=== PATIENT | female | born 1940 | race Caucasian/White ===

== ENCOUNTER → 2016-09-23 | Outpatient (CLI) | payer BC ==
[~2016-09-23] MED LIST: ACET-1256 PO; AMLO-114 PO; ATEN-173 PO; ATV/1 PO; CEPH500C PO; CYCL10TA6 PO; FLUT0.15 NAE; IBUP-1050 PO; INDO-24 PO; LMTHP PO; LORA10TA5 PO; LSN10 PO; MAGNTAB17 PO; MECL1TAB42 PO; POTA1CAP53 PO; RANI300T PO
--- NOTE | 2016-09-23 16:40 | MAMMOGRAPHY REPORT ---
UNILATERAL RIGHT DIGITAL SCREENING MAMMOGRAM TOMOSYNTHESIS WITH CAD: 09/23/2016 CLINICAL HISTORY: Asymptomatic. Personal history of breast cancer. TECHNIQUE: Right breast tomosynthesis in addition to standard 2D mammography was performed. Current study was also evaluated with a Computer Aided Detection (CAD) system. COMPARISON: Comparison is made to exams dated: 09/21/2015 mammogram, 07/18/2014 mammogram, 07/15/2013 mammogram, 07/12/2012 mammogram, 07/09/2011 mammogram, and 07/08/2010 mammogram - [facility] enter. BREAST COMPOSITION: The tissue of the right breast is almost entirely fatty. FINDINGS: A linear scar marker overlies the upper outer middle one third of the right breast. Ther e is a benign coarse calcification and stable intramammary lymph node in the upper outer quadrant of the right breast. Minimal vascular calcification. The hub of a Mediport catheter is partially vis ualized projecting over the superior right pectoralis muscle on the MLO view. No new suspicious mas s, architectural distortion or cluster of microcalcifications is seen. IMPRESSION: ACR BI-RADS CATEGORY 1: NEGATIVE There is no mammographic evidence of malignancy. A 1 year screening mammogram is recommended. The p atient will receive written notification of the results. Approximately 10% of breast cancers are not detected with mammography. A negative mammographic repor t should not delay biopsy if a clinically suggestive mass is present. Alba Patel M.D. ay/:09/23/2016 15:29:55 [employer]: Shaina RINCON(Rachelle)(Shama)(LUCI), [facility] letter sent: Normal 1/2 BI-RADS Code: ACR BI-RADS Category 1: Negative
== END | disposition home or self-care (01) ==
LOC: C.MAMM 10:01
PROVIDERS: ATTEND Physician Assistant
DX: Z12.31 Encounter for screening mammogram for malignant neoplasm of breast (principal); N64.89 Other specified disorders of breast

== ENCOUNTER 2016-12-12 11:34 | Emergency (ER) | payer BC ==
[~2016-12-12] VITALS: Ht 167.6 cm; Wt 99.1 kg
[~2016-12-12 11:34] MED LIST changes: -ATV/1 PO; -CEPH500C PO; -FLUT0.15 NAE; -IBUP-1050 PO; -LORA10TA5 PO; -LSN10 PO; -MAGNTAB17 PO; -RANI300T PO
[2016-12-12 11:36] VITALS: TEMP 37.1; Ht 167.6 cm; Wt 99.1 kg
[2016-12-12] MEDS ORDERED: LORA10TA5 PO (12:47)
[2016-12-12] MEDS ORDERED: RANI300T PO (12:47)
[2016-12-12] MEDS ORDERED: FLUT0.15 NAE (12:49)
[2016-12-12] MEDS ORDERED: MAGNTAB17 PO (12:49)
[2016-12-12] MEDS ORDERED: ATV/1 PO (12:49)
[2016-12-12 13:12] LABS: PROTHROMBIN TIME (PATIENT) 10.7 SECONDS (9.0-12.0)
[2016-12-12 13:16] LABS: BASO % 0.3 %; BASO ABS # 0.02 K/uL (0-0.2); COMPLETE YES; EOS % 8.6 %; HEMATOCRIT 37.4 % (37-47); IG% 0.6 %; LYMPH % 23.5 %; LYMPH ABS # 1.52 K/uL (1.2-3.4); MEAN CELL VOLUME 90.3 fL (80-100); MEAN CORPUSCULAR HEMOGLOBIN 30.9 pg (25-34); MEAN CORPUSCULAR HGB CONC 34.2 g/dl (32-36); MEAN PLATELET VOLUME 9.8 fL (7.4-10.4); MONO % 11.6 %; NEUT % 55.4 %; PLATELET COUNT 267 K/uL (130-400); RED BLOOD COUNT 4.14 M/uL (4.2-5.4); WHITE BLOOD COUNT 6.48 K/uL (4.8-10.8)
[2016-12-12 13:17] LABS: BUN/CREATININE RATIO 17.9 (10-20); CALCIUM 8.6 mg/dl (8.5-10.1); CREATININE 1.1 mg/dl (0.60-1.20); POTASSIUM 3.1 mmol/L (3.5-5.1)
--- NOTE | 2016-12-12 14:35 | DIAGNOSTIC IMAGING REPORT ---
BILATERAL LOWER EXTREMITY VENOUS DOPPLER HISTORY: Acute left lower extremity swelling COMPARISON STUDY: None. FINDINGS: There is normal compressibility, flow, and augmentation within the left lower extremity deep venous system. There is a mild degree of swelling within the imaged left calf. IMPRESSION: 1. No evidence of deep venous thrombosis within the left lower extremity. 2. Nonspecific mild degree of soft tissue swelling involves the left calf. Electronically signed by: Chidi Bagley M.D. 12/12/2016 2:34 PM Dictated Date/Time: 12/12/2016 2:32 PM
[2016-12-12] MEDS ORDERED: CEPH500C PO (15:12)
[2016-12-12] MEDS ORDERED: CEPHALEXIN MONOHYDRATE 250 MG CAP PO ONE (15:15)
[2016-12-12 15:23] VITALS: BP 174/84; PULSE 72; O2SAT 94
--- NOTE | 2016-12-12 19:19 | EMERGENCY ROOM VISIT NOTE ---
History Report prepared by Polo: Merlin Castle Under the Supervision of: Dr. Edward Fermin D.O. First contact with patient: 12:37 Chief Complaint: SWELLING TO EXTREMITY Stated Complaint: LEFT LEG PAIN History of Present Illness The patient is a 75 year old female who presents to the Emergency Room with complaints of left lower extremity swelling that occurred yesterday afternoon. This has never happened to the patient before. At this time, she noticed the swelling in her leg with some redness and tenderness to touch. She notes that her leg feels tight as well. She and her went on a 1 day trip last week and spent 10 hours in the car. She denies any swelling to other areas. Pt denies headache, change in vision, fevers, chest pain, shortness of breath, nausea, vomiting, diarrhea, pain with urination, and melena. She also denies any coughing up blood or past blood clots. Source of History: patient Onset: yesterday afternoon Position: leg (left) Symptom Intensity: mild Quality: other (Swelling) Timing: constant Associated Symptoms: No fevers, No cough, No chest pain, No SOB, No nausea, No vomiting, No melena, No diarrhea Note: She has some pain to the left leg. Review of Systems See HPI for pertinent positives & negatives. A total of 10 systems reviewed and were otherwise negative. Past Medical & Surgical Medical Problems: (1) Age related osteoporosis (2) Breast CA (3) CTS (carpal tunnel syndrome) (4) HTN (hypertension) (5) Hypomagnesemia (6) Kidney calculi (7) Neutropenic fever (8) NAYA on CPAP (9) Uterine cancer Surgical Problems: (1) H/O dilation and curettage (2) H/O eye surgery (3) H/O knee surgery (4) H/O mastectomy (5) H/O total hysterectomy (6) H/O tubal ligation (7) H/O: hysterectomy (8) Hx of tonsillectomy Family History Cancer Hypertension Social History Smoking Status: Never Smoker Alcohol Use: none Drug Use: none Marital Status: Housing Status: lives with significant other Occupation Status: retired Current/Historical Medications Scheduled Amlodipine (Norvasc), 10 MG PO QPM Atenolol (Tenormin), 25 MG PO QPM Cephalexin Monohydrate (Keflex), 500 MG PO QID Fluticasone Propionate (Nasal) (Flonase Allergy Relief), 2 SPRAYS DEVORA DAILY Loratadine (Claritin), 10 MG PO DAILY Magnesium Chloride-Calcium Car (Slow-Mag), 1 TAB PO DAILY Potassium Chloride (Klor-Con Sprinkle), 10 MEQ PO BID Ranitidine Hcl (Zantac), 300 MG PO DAILY Scheduled PRN Cyclobenzaprine Hcl (Flexeril), 10 MG PO HS PRN for Muscle Spasms Indomethacin (Indocin), 50 MG PO TID PRN for gout Lorazepam (Ativan), 1 MG PO TID PRN for Anxiety Meclizine Hcl (Meclizine Hcl), 25 MG PO TID PRN for Dizziness or Vertigo Allergies Coded Allergies: Ciprofloxacin (Verified Allergy, Unknown, HIVES, 12/12/16) Codeine (Verified Adverse Reaction, Unknown, GI SYMPTOMS, 12/12/16) Cyproheptadine (Verified Adverse Reaction, Unknown, lethargy, 12/12/16) Doxepin (Verified Adverse Reaction, Unknown, lethargy, 12/12/16) Hydrocodone (Verified Adverse Reaction, Unknown, GI SYMPTOMS, 12/12/16) Meloxicam (Verified Adverse Reaction, Unknown, dizzy,headache,nausea, 12/12) Oxycodone (Verified Adverse Reaction, Unknown, GI SYMPTOMS, 12/12/16) Prednisone (Verified Adverse Reaction, Unknown, BECAME PREDIABETIC, ) Tramadol (Verified Adverse Reaction, Unknown, GI SYMPTOMS, 12/12/16) Physical Exam Vital Signs Date Time Temp Pulse Resp B/P (MAP) Pulse Ox O2 Delivery O2 Flow Rate FiO2 12/12/16 15:23 72 17 174/84 94 12/12/16 13:45 69 17 184/92 94 12/12/16 11:36 37.1 76 17 174/82 93 Room Air Physical Exam GENERAL: alert, well appearing, well nourished, no distress, non-toxic, sitting up in bed EYE EXAM: normal conjunctiva OROPHARYNX: no exudate, no erythema, lips, buccal mucosa, and tongue normal and mucous membranes are moist NECK: supple, no nuchal rigidity, no adenopathy, non-tender LUNGS: Clear to auscultation. Normal chest wall mechanics HEART: no murmurs, S1 normal and S2 normal ABDOMEN: abdomen soft, non-tender, normo-active bowel sounds, no masses, no rebound or guarding. BACK: Back is symmetrical on inspection and there is no deformity, no midline tenderness, no CVA tenderness. SKIN: no rashes and no bruising UPPER EXTREMITIES: upper extremities are grossly normal. LOWER EXTREMITIES: Left larger than right with erythema around the ankle, tracking up toward the knee/mid caceres. DP's and PT's 2/4. Gross sensation intact. NEURO EXAM: Normal sensorium, cranial nerves II-XII grossly intact, normal speech, no gross weakness of arms, no gross weakness of legs. Medical Decision & Procedures ER Provider Diagnostic Interpretation: Radiology results as stated below per my review and the radiologist's interpretation: BILATERAL LOWER EXTREMITY VENOUS DOPPLER HISTORY: Acute left lower extremity swelling COMPARISON STUDY: None. FINDINGS: There is normal compressibility, flow, and augmentation within the left lower extremity deep venous system. There is a mild degree of swelling within the imaged left calf. IMPRESSION: 1. No evidence of deep venous thrombosis within the left lower extremity. 2. Nonspecific mild degree of soft tissue swelling involves the left calf. Electronically signed by: Chidi Bagley M.D. 12/12/2016 2:34 PM Dictated Date/Time: 12/12/2016 2:32 PM Laboratory Results 12/12/16 11:20 Red Blood Count 4.14, Mean Corpuscular Volume 90.3, Mean Corpuscular Hemoglobin 30.9, Mean Corpuscular Hemoglobin Concent 34.2, Mean Platelet Volume 9.8, Neutrophils (%) (Auto) 55.4, Lymphocytes (%) (Auto) 23.5, Monocytes (%) (Auto) 11.6, Eosinophils (%) (Auto) 8.6, Basophils (%) (Auto) 0.3, Neutrophils # (Auto ) 3.59, Lymphocytes # (Auto) 1.52, Monocytes # (Auto) 0.75, Eosinophils # (Auto ) 0.56, Basophils # (Auto) 0.02 12/12/16 11:20 Test 12/12/16 11:20 White Blood Count 6.48 K/uL (4.8-10.8) Red Blood Count 4.14 M/uL (4.2-5.4) Hemoglobin 12.8 g/dL (12.0-16.0) Hematocrit 37.4 % (37-47) Mean Corpuscular Volume 90.3 fL (80-100) Mean Corpuscular Hemoglobin 30.9 pg (25-34) Mean Corpuscular Hemoglobin Concent 34.2 g/dl (32-36) Platelet Count 267 K/uL (130-400) Mean Platelet Volume 9.8 fL (7.4-10.4) Neutrophils (%) (Auto) 55.4 % Lymphocytes (%) (Auto) 23.5 % Monocytes (%) (Auto) 11.6 % Eosinophils (%) (Auto) 8.6 % Basophils (%) (Auto) 0.3 % Neutrophils # (Auto) 3.59 K/uL (1.4-6.5) Lymphocytes # (Auto) 1.52 K/uL (1.2-3.4) Monocytes # (Auto) 0.75 K/uL (0.11-0.59) Eosinophils # (Auto) 0.56 K/uL (0-0.5) Basophils # (Auto) 0.02 K/uL (0-0.2) RDW Standard Deviation 45.5 fL (36.4-46.3) RDW Coefficient of Variation 13.8 % (11.5-14.5) Immature Granulocyte % (Auto) 0.6 % Immature Granulocyte # (Auto) 0.04 K/uL (0.00-0.02) Prothrombin Time 10.7 SECONDS (9.0-12.0) Prothromb Time International Ratio 1.0 (0.9-1.1) Anion Gap 7.0 mmol/L (3-11) Est Creatinine Clear Calc Drug Dose 52.5 ml/min Estimated GFR () 56.9 Estimated GFR (Non- 49.1 BUN/Creatinine Ratio 17.9 (10-20) Calcium Level 8.6 mg/dl (8.5-10.1) Laboratory results per my review. Medications Administered Medications (Trade) Dose Ordered Sig/Abi Route Start Time Stop Time Status Last Admin Dose Admin Cephalexin Monohydrate (Keflex Cap) 500 mg NOW ONCE PO 12/12/16 15:15 12/12/16 15:16 DC 12/12/16 15:16 500 MG ED Course ED COURSE: Vital signs were reviewed and showed hypertension. The patients medical record was reviewed The above diagnostic studies were performed and reviewed. ED treatments and interventions as stated above. 1237: The patient was evaluated in room A2. A complete history and physical examination was performed. 1515: Ordered Keflex Cap 500 mg PO 1520: Upon reevaluation, the patient is resting. I discussed my findings with the patient and she understands and agrees with the treatment plan.The patient remained stable while under my care. The patient appeared well at the time of discharge. Medical Decision Differential diagnosis includes etiologies such as cellulitis, abscess, MRSA infection, DVT, necrotizing fasciitis, dermatitis, drug eruption, as well as others were entertained. Patient is a 75-year-old female who presents the ER for redness and swelling over left lower extremity. On exam her skin is erythematous warm and tender to palpation. Patient is neurovascularly intact. Ultrasound showed no DVTs. Labs were unremarkable with exception of mild hypokalemia. Patient was given a dose of Keflex and treated for cellulitis with the negative ultrasound and instructed to follow-up with PCP on Thursday. Discussed with Pt concerning signs and symptoms to watch out for. Pt was instructed to follow up with their PCP and discussed with the patient their option to return to the ED at anytime for persistent or worsening symptoms. The appropriate anticipatory guidance and out- patient management, including indications for return to the emergency department , were explained at length to the patient and understood. Medication Reconcilliation Current Medication List: was personally reviewed by me Blood Pressure Screening Patient's blood pressure: Elevated blood pressure Blood pressure disposition: Elevated BP felt to be situational Impression Primary Impression: Cellulitis Additional Impression: Hypokalemia Scribe Attestation The scribe's documentation has been prepared under my direction and personally reviewed by me in its entirety. I confirm that the note above accurately reflects all work, treatment, procedures, and medical decision making performed by me. Departure Information Dispostion Home / Self-Care Prescriptions Cephalexin Monohydrate (Keflex) 500 Mg Cap 500 MG PO QID, #28 CAP Prov: Edward Fermin, 12/12/16 Referrals Hank Ivey D.OLinda (PCP) Forms HOME CARE DOCUMENTATION FORM, IMPORTANT VISIT INFORMATION, WORK / SCHOOL INSTRUCTIONS Patient Instructions Cellulitis - [facility], My [facility] Additional Instructions Please follow up with your primary care doctor with in the next 24 hours. Any worsening of your symptoms, please return to the ED immediately. This includes any fevers greater than 100.4, worsening pain, redness tracking up to the knee, chest pain, shortness breath, persistent nausea, vomiting, unable to eat or drink, or any other concerning signs or symptoms from your standpoint. These take antibiotics as prescribed. Problem Qualifiers Primary Impression: Cellulitis Site of cellulitis: extremity Site of cellulitis of extremity: lower extremity Laterality: left Qualified Codes: L03.116 - Cellulitis of left lower limb
[2017-01-02] MEDS ORDERED: LSN10 PO (11:12)
== END 2016-12-12 15:24 | disposition home or self-care (01) ==
LOC: C.EDB 11:36 → C.EDA 15:24
DX: L03.116 Cellulitis of left lower limb (principal); M79.605 Pain in left leg; E87.6 Hypokalemia; I10 Essential (primary) hypertension; M81.0 Age-related osteoporosis without current pathological fracture; G47.33 Obstructive sleep apnea (adult) (pediatric); Z85.3 Personal history of malignant neoplasm of breast; Z85.42 Personal history of malignant neoplasm of other parts of uterus; Z87.442 Personal history of urinary calculi; Z90.710 Acquired absence of both cervix and uterus; Z90.10 Acquired absence of unspecified breast and nipple; Z98.51 Tubal ligation status; Z98.890 Other specified postprocedural states; Z79.899 Other long term (current) drug therapy; Z88.2 Allergy status to sulfonamides; Z88.5 Allergy status to narcotic agent; Z88.8 Allergy status to other drugs, medicaments and biological substances; Z80.9 Family history of malignant neoplasm, unspecified; Z82.49 Family history of ischemic heart disease and other diseases of the circulatory system

== ENCOUNTER 2016-12-31 10:31 | Observation (INO) | payer BC ==
[~2016-12-31] VITALS: Ht 167.6 cm; Wt 95.9 kg
[~2016-12-31 10:31] MED LIST changes: -ACET-1256 PO; +ATV/1 PO; +CEPH500C PO; +FLUT0.15 NAE; -LMTHP PO; +LORA10TA5 PO; +MAGNTAB17 PO; +RANI300T PO
--- NOTE | 2016-12-31 11:54 | DIAGNOSTIC IMAGING REPORT ---
CHEST ONE VIEW PORTABLE HISTORY: Dyspnea COMPARISON: Chest 06/22/2015. FINDINGS: Calcified granuloma within the right upper lobe. There is suture material within the right midlung zone consistent with postoperative change. This likely explains the mild volume loss within the right hemithorax. Right subclavian Port-A-Cath terminates in the SVC. The heart remains mildly enlarged. Small linear densities at the left lung base favor scarring or subsegmental atelectasis. No new focal lung consolidations. No evidence for pulmonary edema. Mild pleural thickening within the right hemithorax laterally is also likely due to postoperative change. Old, healed right-sided rib fractures. IMPRESSION: Postoperative changes within the right hemithorax as described above. No acute process within the chest. Stable mild cardiomegaly. Electronically signed by: Edgardo Johnston M.D. 12/31/2016 11:53 AM Dictated Date/Time: 12/31/2016 11:51 AM
--- NOTE | 2016-12-31 12:00 | EMERGENCY ROOM VISIT NOTE ---
History First contact with patient: 11:19 Chief Complaint: SHORTNESS OF BREATH Stated Complaint: SHORTNESS OF BREATH Nursing Triage Summary: c/o shortness of breath with activity. c/o occasional non-productive cough. denies chest pain. speaking full sentences. skin pink warm dry. respirations even unlabored. reports labs drawn on thursday, instructed to come to ed by md yesterday. History of Present Illness The patient is a 76 year old female who presents to the Emergency Room via private vehicle accompanied by with complaints of "shortness of breath" . The patient states that for the past 4 weeks, she has had shortness of breath with exertion or activity. She notes this is only with exertion. She notes she is follow with her family doctor, and has had routine blood work, chest x-rays, all of which have been nonconclusive. She does have associated lower leg swelling, left greater than right secondary to cellulitis in the recent past. She had a DVT study which was negative. She was sent here for rule out PE. At this time she denies any heart problems, chest pain, having this before, fevers, chills, wheezing, history of heart failure, taking any diuretics, history of blood clots. Review of Systems A complete 10-point Review of Systems was discussed with the patient, with pertinent positives and negatives listed in the History of Present Illness. All remaining Review of Systems questions can be considered negative unless otherwise specified. Past Medical/Surgical History Medical Problems: (1) Age related osteoporosis (2) Breast CA (3) CTS (carpal tunnel syndrome) (4) HTN (hypertension) (5) Hypertensive urgency (6) Hypomagnesemia (7) Kidney calculi (8) Neutropenic fever (9) NAYA on CPAP (10) Uterine cancer Surgical Problems: (1) H/O dilation and curettage (2) H/O eye surgery (3) H/O knee surgery (4) H/O mastectomy (5) H/O total hysterectomy (6) H/O tubal ligation (7) H/O: hysterectomy (8) Hx of tonsillectomy Family History Cancer Hypertension Social History Smoking Status: Never Smoker Alcohol Use: none Drug Use: none Marital Status: Housing Status: lives with significant other Occupation Status: retired Current/Historical Medications Scheduled Amlodipine (Norvasc), 10 MG PO QPM Atenolol (Tenormin), 25 MG PO QPM Loratadine (Claritin), 10 MG PO DAILY Magnesium Chloride-Calcium Car (Slow-Mag), 1 TAB PO DAILY Potassium Chloride (Klor-Con Sprinkle), 10 MEQ PO BID Ranitidine Hcl (Zantac), 300 MG PO DAILY Scheduled PRN Cyclobenzaprine Hcl (Flexeril), 10 MG PO HS PRN for Muscle Spasms Fluticasone Propionate (Nasal) (Flonase Allergy Relief), 2 SPRAYS DEVORA DAILY PRN for ALLERGIES Ibuprofen (Advil), 400 MG PO DAILY PRN for Pain Indomethacin (Indocin), 50 MG PO TID PRN for gout Lorazepam (Ativan), 1 MG PO TID PRN for Anxiety Physical Exam Vital Signs Date Time Temp Pulse Resp B/P (MAP) Pulse Ox O2 Delivery O2 Flow Rate FiO2 12/31/16 15:32 62 16 192/103 95 Room Air 12/31/16 13:28 60 12/31/16 13:24 61 16 173/105 95 Room Air 12/31/16 11:18 62 12/31/16 11:16 94 Room Air 12/31/16 11:16 64 16 163/86 12/31/16 10:35 36.8 64 20 168/79 98 Room Air Physical Exam VITAL SIGNS - Vital signs and nursing notes were reviewed. Patient is afebrile , hypertensive at 160/79, non-tachycardic and saturating well on room air 98%. GENERAL -76-year-old female appearing her stated age who is in no acute distress. Communicates well with provider and answers questions appropriately. SKIN - Without rashes. No petechial rashes. HEAD - NC/AT. EYES - PERRL with EOMI bilaterally. Sclera anicteric. Palpebral conjunctiva pink and moist with no injection noted. EARS - No deformities of external structures noted on gross examination bilaterally. NOSE - Midline and without cyanosis. No epistaxis or purulent drainage noted. MOUTH/OROPHARYNX - Without perioral cyanosis. Buccal mucosa pink and moist and without leukoplakia. NECK - Neck with FROM. Supple to palpation. No abnormalities identified. LUNGS - Chest wall symmetric without accessory muscle use, intercostals retractions, or central cyanosis. Normal vesicular breath sounds CTA B/L. No wheezes, rales, or rhonchi appreciated. CARDIAC - RRR with S1/S2. No murmur, rubs, or gallops appreciated. ABDOMEN - Abdominal contour without pulsations or visible masses. BS normoactive all four quadrants. No tenderness, palpable masses, hepatosplenomegaly, or ascites noted. EXTREMITIES - No clubbing or peripheral cyanosis. No pretibial edema present. She is neurovascularly intact in the extremity. +5/5 strength noted in UE/LE bilaterally. NEUROLOGIC - Cranial nerves II through XII grossly intact. Sensory intact to light touch throughout. PSYCH - A&O. Pt is very pleasant and interacts well with examiner. Medical Decision & Procedures ER Provider Diagnostic Interpretation: CHEST ONE VIEW PORTABLE HISTORY: Dyspnea COMPARISON: Chest 06/22/2015. FINDINGS: Calcified granuloma within the right upper lobe. There is suture material within the right midlung zone consistent with postoperative change. This likely explains the mild volume loss within the right hemithorax. Right subclavian Port-A-Cath terminates in the SVC. The heart remains mildly enlarged. Small linear densities at the left lung base favor scarring or subsegmental atelectasis. No new focal lung consolidations. No evidence for pulmonary edema. Mild pleural thickening within the right hemithorax laterally is also likely due to postoperative change. Old, healed right-sided rib fractures. IMPRESSION: Postoperative changes within the right hemithorax as described above. No acute process within the chest. Stable mild cardiomegaly. Electronically signed by: Edgardo Johnston M.D. 12/31/2016 11:53 AM Dictated Date/Time: 12/31/2016 11:51 AM ULTRASOUND VENOUS DOPPLER LWR EXT BILA CLINICAL HISTORY: Lower leg swelling, dyspnea. Concern for interval DVT develop COMPARISON STUDY: 12/12/2016 FINDINGS: Real-time and color flow Doppler imaging were performed. Flow was seen within the femoral, popliteal and calf veins with no intraluminal thrombus demonstrated. The saphenous vein is patent. IMPRESSION: No evidence of lower extremity DVT. Electronically signed by: Juan Regalado M.D. 12/31/2016 2:09 PM Dictated Date/Time: 12/31/2016 2:08 PM [~ rep ct add3]] CT ANGIOGRAM OF THE CHEST CLINICAL HISTORY: Shortness of breath COMPARISON STUDY: Chest x-ray dated 01/01/2016 TECHNIQUE: Following the IV administration of 119 mL of Optiray-320, CT angiogram of the thorax was performed from the thoracic inlet to the lung bases utilizing the pulmonary embolus protocol. Images are reviewed in the axial, sagittal, and coronal planes. IV contrast was administered without complication. MIP imaging was performed. A dose lowering technique was utilized adhering to the principles of ALARA. CT DOSE: 668.24 mGy.cm FINDINGS: Hilar lymph nodes are the upper limits of normal in size. There is no pathologic mediastinal or axillary lymphadenopathy. There was no evidence of thoracic aortic dilatation. There were no pulmonary artery filling defects to indicate acute pulmonary embolism. No pleural effusions are visualized. There is moderate respiratory motion artifact. There are mild dependent atelectatic changes. There is no focal pulmonary consolidation. There is right upper lobe scarring. There is indwelling right-sided A-Port catheter. The heart is enlarged. There is no significant pericardial effusion. IMPRESSION: 1. No evidence of acute pulmonary embolism 2. No evidence of focal pulmonary consolidation Electronically signed by: Juan Regalado M.D. 12/31/2016 2:56 PM Dictated Date/Time: 12/31/2016 2:52 PM Laboratory Results 12/31/16 12:40 Red Blood Count 4.16, Mean Corpuscular Volume 91.8, Mean Corpuscular Hemoglobin 31.5, Mean Corpuscular Hemoglobin Concent 34.3, Mean Platelet Volume 9.7, Neutrophils (%) (Auto) 61.9, Lymphocytes (%) (Auto) 23.6, Monocytes (%) (Auto) 10.3, Eosinophils (%) (Auto) 3.3, Basophils (%) (Auto) 0.3, Neutrophils # (Auto ) 7.37, Lymphocytes # (Auto) 2.81, Monocytes # (Auto) 1.23, Eosinophils # (Auto ) 0.39, Basophils # (Auto) 0.03 12/31/16 12:40 Test 12/31/16 12:40 12/31/16 12:53 12/31/16 14:58 White Blood Count 11.90 K/uL (4.8-10.8) Red Blood Count 4.16 M/uL (4.2-5.4) Hemoglobin 13.1 g/dL (12.0-16.0) Hematocrit 38.2 % (37-47) Mean Corpuscular Volume 91.8 fL (80-100) Mean Corpuscular Hemoglobin 31.5 pg (25-34) Mean Corpuscular Hemoglobin Concent 34.3 g/dl (32-36) Platelet Count 249 K/uL (130-400) Mean Platelet Volume 9.7 fL (7.4-10.4) Neutrophils (%) (Auto) 61.9 % Lymphocytes (%) (Auto) 23.6 % Monocytes (%) (Auto) 10.3 % Eosinophils (%) (Auto) 3.3 % Basophils (%) (Auto) 0.3 % Neutrophils # (Auto) 7.37 K/uL (1.4-6.5) Lymphocytes # (Auto) 2.81 K/uL (1.2-3.4) Monocytes # (Auto) 1.23 K/uL (0.11-0.59) Eosinophils # (Auto) 0.39 K/uL (0-0.5) Basophils # (Auto) 0.03 K/uL (0-0.2) RDW Standard Deviation 48.1 fL (36.4-46.3) RDW Coefficient of Variation 14.3 % (11.5-14.5) Immature Granulocyte % (Auto) 0.6 % Immature Granulocyte # (Auto) 0.07 K/uL (0.00-0.02) Prothrombin Time 10.7 SECONDS (9.0-12.0) Prothromb Time International Ratio 1.0 (0.9-1.1) Activated Partial Thromboplast Time 23.2 SECONDS (21.0-31.0) Partial Thromboplastin Ratio 0.9 Anion Gap 8.0 mmol/L (3-11) Est Creatinine Clear Calc Drug Dose 57.6 ml/min Estimated GFR () 63.4 Estimated GFR (Non- 54.7 BUN/Creatinine Ratio 19.6 (10-20) Calcium Level 8.9 mg/dl (8.5-10.1) Magnesium Level 2.0 mg/dl (1.8-2.4) Total Bilirubin 0.7 mg/dl (0.2-1) Aspartate Amino Transf (AST/SGOT) 21 U/L (15-37) Alanine Aminotransferase (ALT/SGPT) 41 U/L (12-78) Alkaline Phosphatase 79 U/L (45-117) Total Creatine Kinase 46 U/L (26-192) Creatine Kinase MB 1.0 ng/ml (0.5-3.6) Creatine Kinase MB Ratio 2.2 (0-3.0) Troponin I < 0.015 ng/ml (0-0.045) Total Protein 6.0 gm/dl (6.4-8.2) Albumin 3.4 gm/dl (3.4-5.0) Globulin 2.6 gm/dl (2.5-4.0) Albumin/Globulin Ratio 1.3 (0.9-2) Thyroid Stimulating Hormone (TSH) 1.600 uIu/ml (0.300-4.500) Lyme Disease IgG Antibody NEG (NEG) Lyme Disease IgM Antibody NEG (NEG) Bedside Troponin I < 0.030 ng/ml (0-0.045) OT-Riu-G-Type Natriuretic Peptide 162 pg/ml (0-1800) Urine Color YELLOW Urine Appearance CLEAR (CLEAR) Urine pH 6.0 (4.5-7.5) Urine Specific [place] 1.021 (1.000-1.030) Urine Protein NEG (NEG) Urine Glucose (UA) NEG (NEG) Urine Ketones NEG (NEG) Urine Occult Blood 2+ (NEG) Urine Nitrite NEG (NEG) Urine Bilirubin NEG (NEG) Urine Urobilinogen NEG (NEG) Urine Leukocyte Esterase MODERATE (NEG) Urine WBC (Auto) 10-30 /hpf (0-5) Urine RBC (Auto) 10-30 /hpf (0-4) Urine Hyaline Casts (Auto) 5-10 /lpf (0-5) Urine Epithelial Cells (Auto) >30 /lpf (0-5) Urine Bacteria (Auto) NEG (NEG) Medical Decision Patient was seen and evaluated as above. After obtaining a thorough history and physical examination IV access was initiated, and the above workup was performed. Patient presents to us today with shortness of breath, or purpura by her family doctor over concern for pulmonary embolism. Ultrasound was repeated of the bilateral lower extremity, to reveal no DVT. Patient's EKG performed bedside, is change compared to previous. Reveals sinus bradycardia, rate of 59 bpm. There is nonspecific T wave abnormality, worse in the anterior leads compared to previous. No evidence of [facility] ADRIEL this time. Troponin negative. CK-MB negative. Chest x-ray noting acute process. CT of the chest for pulmonary embolism negative for acute process. I'm concerned of the patient 's dyspnea on exertion may be secondary to cardiac causes and without further evaluation and management in the inpatient setting is warranted. There is slight leukocytosis of 11.9, red blood cell count low at 4.16. Hemoglobin okay. Coags unremarkable. Patient's CMP revealed sodium of 146, potassium low at 3.0, chloride 109, BUN high at 20. Creatinine 1.0. No evidence of liver failure. Total protein low at 6. TSH normal. Urine does reveal a lot of white blood cells, red blood cells, but many epithelial cells. I suspect this is likely contaminant. Culture pending. Lyme testing negative. Case was discussed with the attending physician, and subsequently to [facility]. Please refer to further documentation regarding her stay. In evaluation treatment this patient following differential diagnoses were entertained: ID, PE, heart valve abnormality, pneumonia among others. Impression Primary Impression: Dyspnea on exertion Additional Impression: Hypokalemia Departure Information Dispostion Admitted as an inpatient Condition FAIR Referrals Hank Ivey, D.O. (PCP) Patient Instructions My [facility] Problem Qualifiers
[2016-12-31] MEDS ORDERED: IBUP-1050 PO (12:14)
[2016-12-31 13:03] LABS: BASO % 0.3 %; BASO ABS # 0.03 K/uL (0-0.2); COMPLETE YES; EOS % 3.3 %; HEMATOCRIT 38.2 % (37-47); IG% 0.6 %; LYMPH % 23.6 %; LYMPH ABS # 2.81 K/uL (1.2-3.4); MEAN CELL VOLUME 91.8 fL (80-100); MEAN CORPUSCULAR HEMOGLOBIN 31.5 pg (25-34); MEAN CORPUSCULAR HGB CONC 34.3 g/dl (32-36); MEAN PLATELET VOLUME 9.7 fL (7.4-10.4); MONO % 10.3 %; NEUT % 61.9 %; PLATELET COUNT 249 K/uL (130-400); RED BLOOD COUNT 4.16 M/uL (4.2-5.4)
[2016-12-31 13:12] LABS: POINT OF CARE PRO-BNP 162 pg/ml (0-1800); POINT OF CARE TROPONIN I < 0.030 ng/ml (0-0.045)
[2016-12-31 13:13] LABS: PARTIAL THROMBOPLASTIN RATIO 0.9; PROTHROMBIN TIME (PATIENT) 10.7 SECONDS (9.0-12.0)
[2016-12-31 13:23] LABS: ALT/SGPT 41 U/L (12-78); BLOOD UREA NITROGEN 20 mg/dl (7-18); BUN/CREATININE RATIO 19.6 (10-20); CALCIUM 8.9 mg/dl (8.5-10.1); CARBON DIOXIDE 29 mmol/L (21-32); CHLORIDE 109 mmol/L (98-107); GLUCOSE 90 mg/dl (70-99); SODIUM 146 mmol/L (136-145)
[2016-12-31 13:33] LABS: ALB/GLOB RATIO 1.3 (0.9-2); ALKALINE PHOSPHATASE 79 U/L (45-117); AST/SGOT 21 U/L (15-37); CKMB/CK RATIO 2.2 (0-3.0)
[2016-12-31] MEDS ORDERED: OPTIRAY 320 IV PRN (13:45)
--- NOTE | 2016-12-31 14:10 | DIAGNOSTIC IMAGING REPORT ---
ULTRASOUND VENOUS DOPPLER LWR EXT BILA CLINICAL HISTORY: Lower leg swelling, dyspnea. Concern for interval DVT develop COMPARISON STUDY: 12/12/2016 FINDINGS: Real-time and color flow Doppler imaging were performed. Flow was seen within the femoral, popliteal and calf veins with no intraluminal thrombus demonstrated. The saphenous vein is patent. IMPRESSION: No evidence of lower extremity DVT. Electronically signed by: Juan Regalado M.D. 12/31/2016 2:09 PM Dictated Date/Time: 12/31/2016 2:08 PM
[2016-12-31 14:30] LABS: LYME DISEASE AB IGG NEG (NEG); LYME DISEASE AB IGM NEG (NEG)
--- NOTE | 2016-12-31 14:57 | DIAGNOSTIC IMAGING REPORT ---
CT ANGIOGRAM OF THE CHEST CLINICAL HISTORY: Shortness of breath COMPARISON STUDY: Chest x-ray dated 01/01/2016 TECHNIQUE: Following the IV administration of 119 mL of Optiray-320, CT angiogram of the thorax was performed from the thoracic inlet to the lung bases utilizing the pulmonary embolus protocol. Images are reviewed in the axial, sagittal, and coronal planes. IV contrast was administered without complication. MIP imaging was performed. A dose lowering technique was utilized adhering to the principles of ALARA. CT DOSE: 668.24 mGy.cm FINDINGS: Hilar lymph nodes are the upper limits of normal in size. There is no pathologic mediastinal or axillary lymphadenopathy. There was no evidence of thoracic aortic dilatation. There were no pulmonary artery filling defects to indicate acute pulmonary embolism. No pleural effusions are visualized. There is moderate respiratory motion artifact. There are mild dependent atelectatic changes. There is no focal pulmonary consolidation. There is right upper lobe scarring. There is indwelling right-sided A-Port catheter. The heart is enlarged. There is no significant pericardial effusion. IMPRESSION: 1. No evidence of acute pulmonary embolism 2. No evidence of focal pulmonary consolidation Electronically signed by: Juan Regalado M.D. 12/31/2016 2:56 PM Dictated Date/Time: 12/31/2016 2:52 PM
[2016-12-31 15:22] LABS: URINE APPEARANCE CLEAR (CLEAR); URINE BILIRUBIN NEG (NEG); URINE COLOR YELLOW; URINE EPITHELIAL CELL AUTO >30 /lpf (0-5); URINE NITRITE NEG (NEG); URINE SPECIFIC GRAVITY 1.021 (1.000-1.030); UROBILINOGEN NEG (NEG); ZZUR CULT IF INDIC CLEAN CATCH YES
[2016-12-31 15:23] LABS: MANUAL MICROSCOPIC REQUIRED? NO; REVIEW REQ? NO
[2016-12-31] MEDS ORDERED: HydrALAZINE HCL 20 MG/ML VIAL IM ONE (16:30)
[2016-12-31] MEDS ORDERED: HydrALAZINE HCL 20 MG/ML VIAL ONE (16:37)
[2016-12-31] MEDS ORDERED: MECL1TAB42 PO (16:44)
[2016-12-31] MEDS ORDERED: LORAZEPAM 1 MG TAB PO PRN (16:45)
[2016-12-31] MEDS ORDERED: FLUTICASONE PROPIONATE NA SPR 16 GM BTL NAE PRN (16:45)
[2016-12-31] MEDS ORDERED: CYCLOBENZAPRINE HCL 10 MG TAB PO PRN (16:45)
[2016-12-31] MEDS ORDERED: ONDANSETRON INJ 2 MG/ML 2 ML VIAL IV PRN (16:45)
[2016-12-31] MEDS ORDERED: HydrALAZINE HCL 20 MG/ML VIAL IV. STA (16:51)
[2016-12-31] MEDS ORDERED: IV FLUIDS COMPLETED PRN (17:15)
[2016-12-31 18:28] VITALS: BP 177/74; PULSE 66; TEMP 36.8; O2SAT 96; Ht 167.6 cm; Wt 95.9 kg
[2016-12-31] MEDS ORDERED: HydrALAZINE HCL 20 MG/ML VIAL IV. PRN (19:00)
--- NOTE | 2016-12-31 19:01 | History and Physical ---
History & Physical Date & Time of Service: Dec 31, 2016 at 18:39 Chief Complaint: Shortness Of Breath Primary Care Physician: Hank Ivey D.O. History of Present Illness This is a 76yo F with PMH of HTN, h/o breast, uterine and L lung cancer (all in remission) and CKD III who presents with worsening dyspnea on exertion. Patient states that at baseline she is able to ambulate without dyspnea or SOB, but over the past month she has been experiencing SOB with exertion or activity. Any time patient walks around the house, starts to climb stairs or even gets dressed, she is dyspneic. Was evaluated for this by PCP Dr Dunn last Thursday and followed up again today. His work up showed a normal EKG, CXR, normal hgb and a normal pulse ox test while ambulating (maintained a 94% O2 sat). Was sent to the ED for evaluation of a pulmonary embolus. Patient denies lightheadedness, headache, visual changes, CP, wheezing, orthopnea, abd pain or swelling/pain in lower extremities. Denies recent travel or immobility. Denies a history of CAD, CHF, COPD or DVT/PE. Of note, patient mentions that BP has been elevated recently when checked at the out-patient clinic/ED. Does not have a BP cuff to check home pressures. Past Medical/Surgical History Medical Problems: (1) Age related osteoporosis Status: Chronic (2) Breast CA Status: Resolved (3) CTS (carpal tunnel syndrome) Status: Chronic (4) HTN (hypertension) Status: Chronic (5) Kidney calculi Status: Chronic (6) NAYA on CPAP Status: Chronic (7) Uterine cancer Status: Chronic Surgical Problems: (1) H/O dilation and curettage Status: Chronic (2) H/O eye surgery Status: Chronic (3) H/O knee surgery Status: Chronic (4) H/O mastectomy Status: Chronic (5) H/O total hysterectomy Status: Resolved (6) H/O tubal ligation Status: Chronic (7) H/O: hysterectomy Status: Chronic (8) Hx of tonsillectomy Status: Chronic Family History Cancer Hypertension Social History Smoking Status: Never Smoker Drug Use: none Marital Status: Occupational Status: retired Multi-Drug Resistant Organisms History of MDRO: No Allergies Coded Allergies: Ciprofloxacin (Verified Allergy, Unknown, HIVES, 8/30/17) Gabapentin (Verified Allergy, Unknown, GI SYMPTOMS, 12/31/16) patient unsure Codeine (Verified Adverse Reaction, Unknown, GI SYMPTOMS, 12/31/16) Cyproheptadine (Verified Adverse Reaction, Unknown, lethargy, 12/31/16) Doxepin (Verified Adverse Reaction, Unknown, lethargy, 12/31/16) Hydrocodone (Verified Adverse Reaction, Unknown, GI SYMPTOMS, 12/31/16) Meloxicam (Verified Adverse Reaction, Unknown, dizzy,headache,nausea, 12/31) Oxycodone (Verified Adverse Reaction, Unknown, GI SYMPTOMS, 12/31/16) Prednisone (Verified Adverse Reaction, Unknown, BECAME PREDIABETIC, ) Tramadol (Verified Adverse Reaction, Unknown, GI SYMPTOMS, 12/31/16) Home Medications Scheduled Amlodipine (Norvasc), 10 MG PO QPM Atenolol (Tenormin), 25 MG PO QPM Loratadine (Claritin), 10 MG PO DAILY Magnesium Chloride-Calcium Car (Slow-Mag), 1 TAB PO DAILY Meclizine Hcl (Meclizine Hcl), 1 TAB PO TID Potassium Chloride (Klor-Con Sprinkle), 10 MEQ PO BID Ranitidine Hcl (Zantac), 300 MG PO DAILY Scheduled PRN Cyclobenzaprine Hcl (Flexeril), 10 MG PO HS PRN for Muscle Spasms Fluticasone Propionate (Nasal) (Flonase Allergy Relief), 2 SPRAYS DEVORA DAILY PRN for ALLERGIES Ibuprofen (Advil), 400 MG PO DAILY PRN for Pain Indomethacin (Indocin), 50 MG PO TID PRN for gout Lorazepam (Ativan), 1 MG PO TID PRN for Anxiety Review of Systems Ten systems reviewed and negative except as noted in the HPI. Physical Exam Vital Signs Date Time Temp Pulse Resp B/P (MAP) Pulse Ox O2 Delivery O2 Flow Rate FiO2 12/31/16 17:34 62 17 177/87 95 Room Air 12/31/16 16:35 61 13 188/81 95 Room Air 12/31/16 15:32 62 16 192/103 95 Room Air 12/31/16 13:28 60 12/31/16 13:24 61 16 173/105 95 Room Air 12/31/16 11:18 62 12/31/16 11:16 94 Room Air 12/31/16 11:16 64 16 163/86 12/31/16 10:35 36.8 64 20 168/79 98 Room Air General Appearance: WD/WN, no apparent distress, + obese Head: normocephalic, atraumatic Eyes: normal inspection, PERRL, sclerae normal ENT: hearing grossly normal Neck: supple, no adenopathy, trachea midline Respiratory/Chest: chest non-tender, lungs clear, normal breath sounds, no respiratory distress, no accessory muscle use Cardiovascular: regular rate, rhythm, no murmur, normal peripheral pulses Abdomen/GI: normal bowel sounds, non tender, soft, no organomegaly Back: normal inspection Extremities/Musculoskelatal: normal inspection (Presence of a resolving rash on anterior L skin. No warmth or swelling. ), no calf tenderness, normal capillary refill, no pedal edema Neurologic/Psych: no motor/sensory deficits, alert, normal mood/affect, oriented x 3 Skin: normal color, warm/dry Diagnostics Laboratory Results Results Past 24 Hours Test 12/31/16 12:37 12/31/16 12:40 12/31/16 12:53 12/31/16 14:58 Range/Units Creatine Kinase MB Ratio 2.2 0-3.0 White Blood Count 11.90 4.8-10.8 K/uL Red Blood Count 4.16 4.2-5.4 M/uL Hemoglobin 13.1 12.0-16.0 g/dL Hematocrit 38.2 37-47 % Mean Corpuscular Volume 91.8 80-100 fL Mean Corpuscular Hemoglobin 31.5 25-34 pg Mean Corpuscular Hemoglobin Concent 34.3 32-36 g/dl Platelet Count 249 130-400 K/uL Mean Platelet Volume 9.7 7.4-10.4 fL Neutrophils (%) (Auto) 61.9 % Lymphocytes (%) (Auto) 23.6 % Monocytes (%) (Auto) 10.3 % Eosinophils (%) (Auto) 3.3 % Basophils (%) (Auto) 0.3 % Neutrophils # (Auto) 7.37 1.4-6.5 K/uL Lymphocytes # (Auto) 2.81 1.2-3.4 K/uL Monocytes # (Auto) 1.23 0.11-0.59 K/uL Eosinophils # (Auto) 0.39 0-0.5 K/uL Basophils # (Auto) 0.03 0-0.2 K/uL RDW Standard Deviation 48.1 36.4-46.3 fL RDW Coefficient of Variation 14.3 11.5-14.5 % Immature Granulocyte % (Auto) 0.6 % Immature Granulocyte # (Auto) 0.07 0.00-0.02 K/uL Prothrombin Time 10.7 9.0-12.0 SECONDS Prothromb Time International Ratio 1.0 0.9-1.1 Activated Partial Thromboplast Time 23.2 21.0-31.0 SECONDS Partial Thromboplastin Ratio 0.9 Sodium Level 146 136-145 mmol/L Potassium Level 3.0 3.5-5.1 mmol/L Chloride Level 109 98-107 mmol/L Carbon Dioxide Level 29 21-32 mmol/L Anion Gap 8.0 3-11 mmol/L Blood Urea Nitrogen 20 7-18 mg/dl Creatinine 1.00 0.60-1.20 mg/dl Est Creatinine Clear Calc Drug Dose 57.6 ml/min Estimated GFR () 63.4 Estimated GFR (Non- 54.7 BUN/Creatinine Ratio 19.6 10-20 Random Glucose 90 70-99 mg/dl Calcium Level 8.9 8.5-10.1 mg/dl Magnesium Level 2.0 1.8-2.4 mg/dl Total Bilirubin 0.7 0.2-1 mg/dl Aspartate Amino Transf (AST/SGOT) 21 15-37 U/L Alanine Aminotransferase (ALT/SGPT) 41 12-78 U/L Alkaline Phosphatase 79 45-117 U/L Total Creatine Kinase 46 26-192 U/L Creatine Kinase MB 1.0 0.5-3.6 ng/ml Troponin I < 0.015 0-0.045 ng/ml Total Protein 6.0 6.4-8.2 gm/dl Albumin 3.4 3.4-5.0 gm/dl Globulin 2.6 2.5-4.0 gm/dl Albumin/Globulin Ratio 1.3 0.9-2 Thyroid Stimulating Hormone (TSH) 1.600 0.300-4.500 uIu/ml Lyme Disease IgG Antibody NEG NEG Lyme Disease IgM Antibody NEG NEG Bedside Troponin I < 0.030 0-0.045 ng/ml EI-Cnn-A-Type Natriuretic Peptide 162 0-1800 pg/ml Urine Color YELLOW Urine Appearance CLEAR CLEAR Urine pH 6.0 4.5-7.5 Urine Specific [place] 1.021 1.000-1.030 Urine Protein NEG NEG Urine Glucose (UA) NEG NEG Urine Ketones NEG NEG Urine Occult Blood 2+ NEG Urine Nitrite NEG NEG Urine Bilirubin NEG NEG Urine Urobilinogen NEG NEG Urine Leukocyte Esterase MODERATE NEG Urine WBC (Auto) 10-30 0-5 /hpf Urine RBC (Auto) 10-30 0-4 /hpf Urine Hyaline Casts (Auto) 5-10 0-5 /lpf Urine Epithelial Cells (Auto) >30 0-5 /lpf Urine Bacteria (Auto) NEG NEG Microbiology Results 12/31/16 Urine Culture, Received Pending Diagnostic Radiology Chest/thorax CTA: IMPRESSION: 1. No evidence of acute pulmonary embolism 2. No evidence of focal pulmonary consolidation Venous Doppler Study: IMPRESSION: No evidence of lower extremity DVT. CXR: IMPRESSION: Postoperative changes within the right hemithorax as described above. No acute process within the chest. Stable mild cardiomegaly. EKG Sinus bradycardia Otherwise normal ECG Impression Assessment and Plan This is a 76yo F with PMH of HTN, h/o breast, uterine and L lung cancer (all in remission) and CKD III who presents with worsening dyspnea on exertion. Dyspnea on Exertion: -PE work-up negative: normal chest/thorax CTA, bilat LE ultrasound, CXR -ECG with sinus bradycardia -Trop neg x 1 -Appears euvolemic -Likely 2/2 elevated HTN. Elevated to 192/103 in ED. -Will treat HTN and reassess -Ordered echo to check for wall abnormalities, valvular dysfunction Hypertensive Urgency: -Elevated to 192/103 in ED -Mentions BP has been elevated at recent check ups but does not have a BP cuff at home -Continue atenolol and amlodipine -Hydralazine 10mg Q8 PRN for SBP >180, DBP >110 GERD: -Continue ranitidine NAYA: -on CPAP qHS DVT Ppx: Lovenox Code status: FULL PCP: Mona Dispo: Plan to return home once medically stable Addendum: I have seen and examined the patient and agree with the assessment and plan above with the exception that I will add lisinopril 10mg PO daily on board. She has no h/o lung disease, no prior chest radiation and usually has had very well-controlled blood pressure. She has been seem in the office recently (PCP) and her BP values have been well controlled with 120-130 systolic on average. She does not appear overtly stressed at this time and yet her BP is consistently elevated. It is possible that it is fluctuating throughout the day and is a possible cause of her SOB, especially with 50 lb weight gain over the last year. Additionally, although she doesn't indulge in salt she doesn't work to avoid it either, so dietary indiscretions may be playing a role. No PE on CT scan, EKG unchanged from prior with no evidence of ischemia and TTE in 2016 revealing evidence of LVH, grade I diastolic dysfunction, EF 60% and aortic sclerosis without stenosis. Advocate salt restriction, weight loss and closer monitoring of her BP as outpatient. Will update TTE in am and start lisinopril tonight. Will need outpatient PRP in two weeks. Horace, DO Level of Care Telemetry Resuscitation Status FULL RESUSCITATION VTE Prophylaxis VTE Risk Assessment Done? Y/N: Yes Risk Level: Moderate Given or contraindicated: Enoxaparin (Lovenox)SQ
[2016-12-31] MEDS: ACETAMINOPHEN 325 MG TAB PO PRN (19:09)
[2016-12-31] MEDS: ENOXAPARIN 40 MG/0.4 ML SYR SC SCH (20:07)
[2016-12-31] MEDS: POTASSIUM CHLORIDE 10 MEQ TABCR PO SCH (20:08)
[2016-12-31] MEDS: AMLODIPINE BESYLATE 5 MG TAB PO SCH (20:08)
[2016-12-31] MEDS: LISINOPRIL 10 MG TAB PO SCH (20:23)
[2017-01-01] VITALS (8 sets, daily range): BP systolic 119–171; BP diastolic 63–84; PULSE 52–66; TEMP 36.3–37; O2SAT 94–96
[2017-01-01] MEDS: ACETAMINOPHEN 325 MG TAB PO PRN ×3 (05:40→22:20)
[2017-01-01 06:25] LABS: MEAN CELL VOLUME 92.4 fL (80-100); MEAN CORPUSCULAR HEMOGLOBIN 30.7 pg (25-34); MEAN CORPUSCULAR HGB CONC 33.3 g/dl (32-36); MEAN PLATELET VOLUME 10.2 fL (7.4-10.4); PLATELET COUNT 254 K/uL (130-400); RED BLOOD COUNT 4.33 M/uL (4.2-5.4)
[2017-01-01 07:07] LABS: CREATININE 0.93 mg/dl (0.60-1.20); POTASSIUM 3.1 mmol/L (3.5-5.1)
[2017-01-01] MEDS: LORATADINE 10 MG TAB PO SCH (08:37)
[2017-01-01] MEDS: RANITIDINE HCL 150 MG TAB PO SCH (08:38)
[2017-01-01] MEDS: LISINOPRIL 10 MG TAB PO SCH (08:38)
[2017-01-01] MEDS: POTASSIUM CHLORIDE 10 MEQ TABCR PO SCH ×2 (08:38→20:31)
--- NOTE | 2017-01-01 10:46 | ECHOCARDIOGRAM REPORT ---
*NOTICE TO RECEIVING CONSTITUTION PARTY AGENCY This information is strictly Confidential and protected under [place] law. [place] law prohibits you from making any further disclosure of this information unless further disclosure is expressly permitted by the written consent of the person to whom it pertains or is authorized by law. A general authorization for the release of medical or other information is not sufficient for this purpose. Hospital accepts no responsibility if the information is made available to any other person, INCLUDING THE PATIENT. Interpretation Summary * Name: MELANIE AVILA Study Date: 01/01/2017 07:10 AM BP: 123/64 mmHg * Patient Location: C.2T\S\S230\S\2 HR: 62 * : 1940 (M/d/yyyy) Gender: Female Height: 67 in * Age: 76 yrs Ethnicity: [place] Weight: 216 lb * Ordering Physician: Daisy Paez * Referring Physician: Martinez Dunn D.O. * Performed By: Nellie Stafford * * Reason For Study: SOB * BSA: 2.1 m2 * -- Conclusions -- * No significant change compared to previous study of 06/23/15. * Normal LV chamber size with mild concentric LVH, sigmoid appearing septum. * Normal LV systolic function, EF 65-70%. * No segmental left ventricular wall motion abnormalities are noted. * Grade I diastolic dysfunction. * Aortic valve sclerosis moderate, without significant aortic valvular stenosis. Procedure Details * A complete two-dimensional transthoracic echocardiogram was performed (2D, M-mode, Doppler and color flow Doppler). * The study was technically difficult. * Limited views were obtained. * There were technical limitations due to patient'sbody habitus * A contrast injection of Definity was performed to improve assessment of LV function. * Contrast was injected into an intravenous site in the central line. * One vial of Definity ultrasound contrast was diluted in normal saline to a total volume of 10 ml. A total of '3' ml of solution was administered during imaging. * Lot # [id number] of Definity utilized for procedure. * Expiration date 02/18. * The attending nurse who injected the contrast agent was DEE DEE THOMPSON RN. Left Ventricle * The left ventricle is normal in size. * There is mild concentric left ventricular hypertrophy. * Ejection Fraction = 65-70%. * Left ventricular systolic function is normal. * No segmental left ventricular wall motion abnormalities are noted. * The left ventricular wall motion is normal. Right Ventricle * The right ventricular cavity size is normal (basal dimension <4.2 cm in right ventricular apical 4-chamber view). * The right ventricular systolic function is normal as assessed by tricuspid annular plane systolic excursion (TAPSE) (normal >1.5 cm). Atria * The left atrial size is normal. * Right atrial size is normal. * No ASD detected; PFO is not assessed. Mitral Valve * The mitral valve is normal in structure and function. Tricuspid Valve * The tricuspid valve is normal in structure and function. Aortic Valve * The aortic valve is trileaflet. * Aortic valve sclerosis moderate, without significant aortic valvular stenosis. * No hemodynamically significant valvular aortic stenosis. * There is no significant aortic regurgitation. Pulmonic Valve * The pulmonary valve is not well seen, but the Doppler examination is normal without significant regurgitation or stenosis. Great Vessels * The aortic root and proximal ascending aorta are normal sized. Pericardium/Pleural * There is no pericardial effusion. Left Ventricular Diastolic Function * Grade I diastolic dysfunction, (abnormal relaxation pattern). MMode 2D Measurements and Calculations IVSd 1.3 cm IVSs 2.0 cm LVIDd 4.5 cm LVIDs 2.7 cm LVPWd 0.65 cm LVPWs 1.8 cm IVS/LVPW 1.9 FS 38.5 % EDV(Teich) 90.9 ml ESV(Teich) 28.2 ml EF(Teich) 69.0 % EDV(cubed) 89.1 ml ESV(cubed) 20.7 ml EF(cubed) 76.8 % % IVS thick 56.8 % % LVPW thick 178.2 % LV mass(C)d 141.3 grams LV mass(C)dI 67.6 grams/m\S\2 LV mass(C)s 213.5 grams LV mass(C)sI 102.2 grams/m\S\2 CO(Teich) 3.5 l/min CI(Teich) 1.7 l/min/m\S\2 SV(Teich) 62.7 ml SI(Teich) 30.0 ml/m\S\2 CO(cubed) 3.8 l/min CI(cubed) 1.8 l/min/m\S\2 SV(cubed) 68.4 ml SI(cubed) 32.8 ml/m\S\2 ACS 1.5 cm asc Aorta Diam 2.9 cm LVOT diam 1.8 cm LVOT area 2.6 cm\S\2 LVAd ap4 30.6 cm\S\2 LVLd ap4 8.0 cm EDV(MOD-sp4) 97.9 ml LVAs ap4 14.0 cm\S\2 LVLs ap4 5.4 cm ESV(MOD-sp4) 30.2 ml EF(MOD-sp4) 69.2 % LVAd ap2 29.1 cm\S\2 LVLd ap2 7.8 cm EDV(MOD-sp2) 90.0 ml LVAs ap2 13.7 cm\S\2 LVLs ap2 5.7 cm ESV(MOD-sp2) 27.4 ml EF(MOD-sp2) 69.6 % CO(MOD-sp4) 3.8 l/min CI(MOD-sp4) 1.8 l/min/m\S\2 SV(MOD-sp4) 67.7 ml SI(MOD-sp4) 32.4 ml/m\S\2 CO(MOD-sp2) 3.5 l/min CI(MOD-sp2) 1.7 l/min/m\S\2 SV(MOD-sp2) 62.6 ml SI(MOD-sp2) 30.0 ml/m\S\2 Doppler Measurements and Calculations MV E max florentino 75.2 cm/sec MV A max florentino 110.6 cm/sec MV E/A 0.68 MV dec time 0.31 sec Ao V2 max 139.8 cm/sec Ao max PG 7.8 mmHg Ao max PG (full) 3.1 mmHg ARNOLD(V,A) 2.0 cm\S\2 ARNOLD(V,D) 2.0 cm\S\2 LV V1 max PG 4.8 mmHg LV V1 max 109.1 cm/sec PA V2 max 72.8 cm/sec PA max PG 2.1 mmHg PI end-d florentino 118.1 cm/sec TR max florentino 160.8 cm/sec
[2017-01-01] MEDS ORDERED: PERFLUTREN LIPID MICROSPHERE (DEFINITY) IV ONE (10:59)
--- NOTE | 2017-01-01 11:45 | Progress Note ---
Internal Med Progress Note Date of Service: Jan 01, 2017. Provider Documentation: SUBJECTIVE: says currently not sob while resting no chest pain afebrile no cough eating ok 'no nausea OBJECTIVE: Vital Signs-as noted below Exam: General-alert and oriented. Not in distress.Obese ENT-normal hearing Neck-no neck masses Lungs-cta b/l no wheezing or crackles Heart-s1 and s2 heard regular rate and rhythm, no murmurs Abdomen-soft bowel sounds present non tender no distension Extremities no edema no erythema Neuro-alert and oriented moves extremities Lab data as noted below. ASSESSMENT & PLAN: This is a 76yo F with PMH of HTN, h/o breast, uterine and L lung cancer (all in remission) and CKD III who presents with worsening dyspnea on exertion. Dyspnea on Exertion: normal chest/thorax CTA, bilat LE ultrasound, CXR ECG with sinus bradycardia CE negtaive echo no change from previous. Normal Ef From uncontrolled htn? added lisinopril will monitor. Hypertensive Urgency: Elevated to 192/103 in ED Per H and P:"Mentions BP has been elevated at recent check ups but does not have a BP cuff at home" On atenolol and amlodipine added lisinopril 10mg daily Hydralazine 10mg Q8 PRN for SBP >180, DBP >110 will monitor GERD: on ranitidine NAYA: CPAP qHS DVT Ppx: Lovenox. Code status: FULL DISPOSITION ambulate in hallway possible d/c today or in am Vital Signs: Date Time Temp Pulse Resp B/P (MAP) Pulse Ox O2 Delivery O2 Flow Rate FiO2 01/01/17 11:27 37.0 62 19 138/73 (94) 95 Room Air 01/01/17 08:00 Room Air 01/01/17 07:00 36.7 61 18 160/76 (104) 94 Room Air 01/01/17 04:01 Room Air 01/01/17 03:59 36.7 62 18 123/64 (83) 95 CPAP 01/01/17 00:01 Room Air 01/01/17 00:00 36.8 60 18 119/63 (81) 94 CPAP 12/31/16 20:00 Room Air 12/31/16 18:28 36.8 66 26 177/74 96 Room Air 12/31/16 18:10 60 17 177/87 95 12/31/16 17:34 62 17 177/87 95 Room Air 12/31/16 16:35 61 13 188/81 95 Room Air 12/31/16 15:32 62 16 192/103 95 Room Air 12/31/16 13:28 60 12/31/16 13:24 61 16 173/105 95 Room Air Lab Results: Results Past 24 Hours Test 12/31/16 12:37 12/31/16 12:40 12/31/16 12:53 12/31/16 14:58 Range/Units Creatine Kinase MB Ratio 2.2 0-3.0 White Blood Count 11.90 4.8-10.8 K/uL Red Blood Count 4.16 4.2-5.4 M/uL Hemoglobin 13.1 12.0-16.0 g/dL Hematocrit 38.2 37-47 % Mean Corpuscular Volume 91.8 80-100 fL Mean Corpuscular Hemoglobin 31.5 25-34 pg Mean Corpuscular Hemoglobin Concent 34.3 32-36 g/dl Platelet Count 249 130-400 K/uL Mean Platelet Volume 9.7 7.4-10.4 fL Neutrophils (%) (Auto) 61.9 % Lymphocytes (%) (Auto) 23.6 % Monocytes (%) (Auto) 10.3 % Eosinophils (%) (Auto) 3.3 % Basophils (%) (Auto) 0.3 % Neutrophils # (Auto) 7.37 1.4-6.5 K/uL Lymphocytes # (Auto) 2.81 1.2-3.4 K/uL Monocytes # (Auto) 1.23 0.11-0.59 K/uL Eosinophils # (Auto) 0.39 0-0.5 K/uL Basophils # (Auto) 0.03 0-0.2 K/uL RDW Standard Deviation 48.1 36.4-46.3 fL RDW Coefficient of Variation 14.3 11.5-14.5 % Immature Granulocyte % (Auto) 0.6 % Immature Granulocyte # (Auto) 0.07 0.00-0.02 K/uL Prothrombin Time 10.7 9.0-12.0 SECONDS Prothromb Time International Ratio 1.0 0.9-1.1 Activated Partial Thromboplast Time 23.2 21.0-31.0 SECONDS Partial Thromboplastin Ratio 0.9 Sodium Level 146 136-145 mmol/L Potassium Level 3.0 3.5-5.1 mmol/L Chloride Level 109 98-107 mmol/L Carbon Dioxide Level 29 21-32 mmol/L Anion Gap 8.0 3-11 mmol/L Blood Urea Nitrogen 20 7-18 mg/dl Creatinine 1.00 0.60-1.20 mg/dl Est Creatinine Clear Calc Drug Dose 57.6 ml/min Estimated GFR () 63.4 Estimated GFR (Non- 54.7 BUN/Creatinine Ratio 19.6 10-20 Random Glucose 90 70-99 mg/dl Calcium Level 8.9 8.5-10.1 mg/dl Magnesium Level 2.0 1.8-2.4 mg/dl Total Bilirubin 0.7 0.2-1 mg/dl Aspartate Amino Transf (AST/SGOT) 21 15-37 U/L Alanine Aminotransferase (ALT/SGPT) 41 12-78 U/L Alkaline Phosphatase 79 45-117 U/L Total Creatine Kinase 46 26-192 U/L Creatine Kinase MB 1.0 0.5-3.6 ng/ml Troponin I < 0.015 0-0.045 ng/ml Total Protein 6.0 6.4-8.2 gm/dl Albumin 3.4 3.4-5.0 gm/dl Globulin 2.6 2.5-4.0 gm/dl Albumin/Globulin Ratio 1.3 0.9-2 Thyroid Stimulating Hormone (TSH) 1.600 0.300-4.500 uIu/ml Lyme Disease IgG Antibody NEG NEG Lyme Disease IgM Antibody NEG NEG Bedside Troponin I < 0.030 0-0.045 ng/ml RR-Tin-B-Type Natriuretic Peptide 162 0-1800 pg/ml Urine Color YELLOW Urine Appearance CLEAR CLEAR Urine pH 6.0 4.5-7.5 Urine Specific [place] 1.021 1.000-1.030 Urine Protein NEG NEG Urine Glucose (UA) NEG NEG Urine Ketones NEG NEG Urine Occult Blood 2+ NEG Urine Nitrite NEG NEG Urine Bilirubin NEG NEG Urine Urobilinogen NEG NEG Urine Leukocyte Esterase MODERATE NEG Urine WBC (Auto) 10-30 0-5 /hpf Urine RBC (Auto) 10-30 0-4 /hpf Urine Hyaline Casts (Auto) 5-10 0-5 /lpf Urine Epithelial Cells (Auto) >30 0-5 /lpf Urine Bacteria (Auto) NEG NEG Test 01/01/17 05:33 Range/Units White Blood Count 9.80 4.8-10.8 K/uL Red Blood Count 4.33 4.2-5.4 M/uL Hemoglobin 13.3 12.0-16.0 g/dL Hematocrit 40.0 37-47 % Mean Corpuscular Volume 92.4 80-100 fL Mean Corpuscular Hemoglobin 30.7 25-34 pg Mean Corpuscular Hemoglobin Concent 33.3 32-36 g/dl RDW Standard Deviation 48.9 36.4-46.3 fL RDW Coefficient of Variation 14.4 11.5-14.5 % Platelet Count 254 130-400 K/uL Mean Platelet Volume 10.2 7.4-10.4 fL Sodium Level 142 136-145 mmol/L Potassium Level 3.1 3.5-5.1 mmol/L Chloride Level 107 98-107 mmol/L Carbon Dioxide Level 29 21-32 mmol/L Anion Gap 6.0 3-11 mmol/L Blood Urea Nitrogen 17 7-18 mg/dl Creatinine 0.93 0.60-1.20 mg/dl Est Creatinine Clear Calc Drug Dose 60.0 ml/min Estimated GFR () 69.2 Estimated GFR (Non- 59.7 BUN/Creatinine Ratio 18.0 10-20 Random Glucose 104 70-99 mg/dl Calcium Level 8.0 8.5-10.1 mg/dl Microbiology Results 12/31/16 Urine Culture, Received Pending
[2017-01-01] MEDS: AMLODIPINE BESYLATE 5 MG TAB PO SCH (20:32)
[2017-01-01] MEDS: ENOXAPARIN 40 MG/0.4 ML SYR SC SCH (20:33)
[2017-01-02 03:11] VITALS: BP 122/74; PULSE 60; TEMP 36.6; O2SAT 97
[2017-01-02 07:29] VITALS: BP 120/78; PULSE 58; TEMP 37; O2SAT 94
[2017-01-02] MEDS: RANITIDINE HCL 150 MG TAB PO SCH (08:24)
[2017-01-02] MEDS: LISINOPRIL 10 MG TAB PO SCH (08:24)
[2017-01-02] MEDS: LORATADINE 10 MG TAB PO SCH (08:24)
[2017-01-02] MEDS: ACETAMINOPHEN 325 MG TAB PO PRN (08:24)
[2017-01-02] MEDS: POTASSIUM CHLORIDE 10 MEQ TABCR PO SCH (08:25)
[2017-01-02 08:52] LABS: BUN/CREATININE RATIO 19.3 (10-20); CALCIUM 8.9 mg/dl (8.5-10.1); CREATININE 1.1 mg/dl (0.60-1.20); POTASSIUM 3.3 mmol/L (3.5-5.1)
[2017-01-02 08:55] LABS: ALB/GLOB RATIO 1.3 (0.9-2)
[2017-01-02] MEDS ORDERED: POTASSIUM CHLORIDE 20 MEQ TABCR PO ONE (09:30)
[2017-01-02 11:01] LABS: ESTIMATED AVERAGE GLUCOSE 148 mg/dl; HA1C FLAG Normal (Normal)
[2017-01-02] MEDS ORDERED: LSN10 PO (11:12)
--- NOTE | 2017-01-02 11:14 | Discharge Instructions ---
Discharge Instructions Date of Service Jan 02, 2017. Admission Reason for Admission: Hypertensive Urgency Discharge Discharge Diagnosis / Problem: sob. hypertensive urgency? Discharge Goals Goal(s): Decrease discomfort, Improve function Activity Recommendations Activity Limitations: resume your previous activity . Instructions / Follow-Up Instructions / Follow-Up FOLLOWUP WITH FAMILY DOCTOR ON Jan AT 1:25PM PULMONARY FUNCTION TEST OR STRESS TEST PER FAMILY DOCTOR LAB: BMP IN 1-2 WEEKS AND FOLLOW RESULTS WITH FAMILY DOCTOR STARTING ON NEW BLOOD PRESSURE MEDICATION LISINOPRIL AND ALSO HAS HX OF HYPOKALEMIA. Current Hospital Diet Patient's current hospital diet: AHA Diet (Heart Healthy), Low Sodium Diet (2gm Na) Discharge Diet Recommended Diet: AHA Diet (Heart Healthy) Pending Studies Studies pending at discharge: no Laboratory Results Hemoglobin A1c Test 01/01/17 05:33 Range/Units Estimated Average Glucose 148 mg/dl Hemoglobin A1c 6.8 H 4.5-5.6 % Medical Emergencies . Who to Call and When: Medical Emergencies: If at any time you feel your situation is an emergency, please call 911 immediately. . Non-Emergent Contact Non-Emergency issues call your: Primary Care Provider . . "Provider Documentation" section prepared by Ever Ruiz. . VTE Core Measure Inpt VTE Proph given/why not?: Enoxaparin (Lovenox)SQ
[2017-01-02 11:50] VITALS: BP 120/78; PULSE 58; TEMP 37; O2SAT 94
[2017-01-02 11:51] VITALS: BP 141/75; PULSE 61; TEMP 37.1; O2SAT 95
--- NOTE | 2017-01-02 17:29 | Progress Note ---
Internal Med Progress Note Date of Service: Jan 02, 2017. Provider Documentation: SUBJECTIVE: ambulated ok sob much better but still some on exertion no chest pain' febrile no cough ok for discharge OBJECTIVE: Vital Signs-as noted below Exam: General-alert and oriented. Not in distress.Obese ENT-normal hearing Neck-no neck masses Lungs-cta b/l no wheezing or crackles Heart-s1 and s2 heard regular rate and rhythm, no murmurs Abdomen-soft bowel sounds present non tender no distension Extremities no edema no erythema Neuro-alert and oriented moves extremities Lab data as noted below. ASSESSMENT & PLAN: This is a 76yo F with PMH of HTN, h/o breast, uterine and L lung cancer (all in remission) and CKD III who presents with worsening dyspnea on exertion. Dyspnea on Exertion: normal chest/thorax CTA, bilat LE ultrasound, CXR ECG with sinus bradycardia CE negtaive echo no change from previous. Normal Ef From uncontrolled htn? added lisinopril improved may need pft's or stress as out patient if not resolved Hypertensive Urgency: Elevated to 192/103 in ED Per H and P:"Mentions BP has been elevated at recent check ups but does not have a BP cuff at home" On atenolol and amlodipine added lisinopril 10mg daily stable f/u with pcp GERD: on ranitidine NAYA: CPAP qHS Hypokalemia on potassium supplements started on lisinopril for htn f/u bmp in 1-2 weeks with pcp Discharged home Vital Signs: Date Time Temp Pulse Resp B/P (MAP) Pulse Ox O2 Delivery O2 Flow Rate FiO2 01/02/17 11:51 37.1 61 17 141/75 (97) 95 Room Air 01/02/17 11:50 37.0 58 18 94 Room Air 01/02/17 08:00 Room Air 01/02/17 07:29 37.0 58 18 120/78 (92) 94 Room Air 01/02/17 04:00 Room Air 01/02/17 03:11 36.6 60 21 122/74 (90) 97 CPAP 01/02/17 00:01 Room Air 01/01/17 23:16 36.3 52 22 158/71 (100) 96 CPAP 01/01/17 20:00 Room Air 01/01/17 19:56 37.0 66 20 123/78 (93) 96 Room Air Lab Results: Results Past 24 Hours Test 01/02/17 08:11 Range/Units Sodium Level 143 136-145 mmol/L Potassium Level 3.3 3.5-5.1 mmol/L Chloride Level 108 98-107 mmol/L Carbon Dioxide Level 28 21-32 mmol/L Anion Gap 7.0 3-11 mmol/L Blood Urea Nitrogen 21 7-18 mg/dl Creatinine 1.10 0.60-1.20 mg/dl Est Creatinine Clear Calc Drug Dose 50.8 ml/min Estimated GFR () 56.5 Estimated GFR (Non- 48.7 BUN/Creatinine Ratio 19.3 10-20 Random Glucose 166 70-99 mg/dl Calcium Level 8.9 8.5-10.1 mg/dl Magnesium Level 2.0 1.8-2.4 mg/dl Total Bilirubin 0.8 0.2-1 mg/dl Aspartate Amino Transf (AST/SGOT) 14 15-37 U/L Alanine Aminotransferase (ALT/SGPT) 32 12-78 U/L Alkaline Phosphatase 72 45-117 U/L Total Protein 6.0 6.4-8.2 gm/dl Albumin 3.4 3.4-5.0 gm/dl Globulin 2.6 2.5-4.0 gm/dl Albumin/Globulin Ratio 1.3 0.9-2
--- NOTE | 2017-01-02 17:58 | Discharge Summary ---
Discharge Summary Date of Service Jan 02, 2017. Discharge Summary Admission Date: Dec 31, 2016 at 16:34 Discharge Date: Jan 02, 2017 Discharge Disposition: Home Principal Diagnosis: sob uncontrolled htn Secondary Diagnoses/Problems: 1) Age related osteoporosis Status: Chronic (2) Breast CA Status: Resolved (3) CTS (carpal tunnel syndrome) Status: Chronic (4) HTN (hypertension) Status: Chronic (5) Kidney calculi Status: Chronic (6) NAYA on CPAP Status: Chronic (7) Uterine cancer Status: Chronic Procedures: VENOUS DOPPLER: No evidence of lower extremity DVT. CTA CHEST: 1. No evidence of acute pulmonary embolism 2. No evidence of focal pulmonary consolidation ECHO: No significant change compared to previous study of 06/23/15. * Normal LV chamber size with mild concentric LVH, sigmoid appearing septum. * Normal LV systolic function, EF 65-70%. * No segmental left ventricular wall motion abnormalities are noted. * Grade I diastolic dysfunction. * Aortic valve sclerosis moderate, without significant aortic valvular stenosis. Medication Reconciliation New Medications: Lisinopril (Zestril) 10 Mg Tab 10 MG PO QAM, #30 TAB 2 Refills Continued Medications: Amlodipine (Norvasc) 10 Mg Tab 10 MG PO QPM, TAB Atenolol (Tenormin) 25 Mg Tab 25 MG PO QPM, TAB Cyclobenzaprine Hcl (Flexeril) 10 Mg Tab 10 MG PO HS PRN for Muscle Spasms Fluticasone Propionate (Nasal) (Flonase Allergy Relief) 50 Mcg/Act Spr 2 SPRAYS DEVORA DAILY PRN for ALLERGIES Indomethacin (Indocin) 50 Mg Cap 50 MG PO TID PRN for gout WITH FOOD UNTIL PAIN RESOLVES Loratadine (Claritin) 10 Mg Tab 10 MG PO DAILY, #30 Lorazepam (Ativan) 1 Mg Tab 1 MG PO TID PRN for Anxiety, TAB Magnesium Chloride-Calcium Car (Slow-Mag) 1 Tab Tab 1 TAB PO DAILY Meclizine Hcl (Meclizine Hcl) 25 Mg Tab 1 TAB PO TID for vertigo for 30 Days, #90 TAB Potassium Chloride (Klor-Con Sprinkle) 10 Meq Cap 10 MEQ PO BID Ranitidine Hcl (Zantac) 300 Mg Tab 300 MG PO DAILY, #30 Discontinued Medications: Ibuprofen (Advil) 200 Mg Tab 400 MG PO DAILY PRN for Pain, TAB Admission Information HPI (per Admitting provider): This is a 76yo F with PMH of HTN, h/o breast, uterine and L lung cancer (all in remission) and CKD III who presents with worsening dyspnea on exertion. Patient states that at baseline she is able to ambulate without dyspnea or SOB, but over the past month she has been experiencing SOB with exertion or activity. Any time patient walks around the house, starts to climb stairs or even gets dressed, she is dyspneic. Was evaluated for this by PCP Dr Dunn last Thursday and followed up again today. His work up showed a normal EKG, CXR, normal hgb and a normal pulse ox test while ambulating (maintained a 94% O2 sat). Was sent to the ED for evaluation of a pulmonary embolus. Patient denies lightheadedness, headache, visual changes, CP, wheezing, orthopnea, abd pain or swelling/pain in lower extremities. Denies recent travel or immobility. Denies a history of CAD, CHF, COPD or DVT/PE. Of note, patient mentions that BP has been elevated recently when checked at the out-patient clinic/ED. Does not have a BP cuff to check home pressures. Physical Exam (per Admitting): General Appearance: WD/WN, no apparent distress, + obese Head: normocephalic, atraumatic Eyes: normal inspection, PERRL, sclerae normal ENT: hearing grossly normal Neck: supple, no adenopathy, trachea midline Respiratory/Chest: chest non-tender, lungs clear, normal breath sounds, no respiratory distress, no accessory muscle use Cardiovascular: regular rate, rhythm, no murmur, normal peripheral pulses Abdomen/GI: normal bowel sounds, non tender, soft, no organomegaly Back: normal inspection Extremities/Musculoskelatal: normal inspection (Presence of a resolving rash on anterior L skin. No warmth or swelling. ), no calf tenderness, normal capillary refill, no pedal edema Neurologic/Psych: no motor/sensory deficits, alert, normal mood/affect, oriented x 3 Skin: normal color, warm/dry Hospital Course This is a 76yo F with PMH of HTN, h/o breast, uterine and L lung cancer (all in remission) and CKD III who presents with worsening dyspnea on exertion. Dyspnea on Exertion: normal chest/thorax CTA, bilat LE ultrasound, CXR ECG with sinus bradycardia CE negtaive echo no change from previous. Normal Ef From uncontrolled htn? added lisinopril improved may need pft's or stress as out patient if not resolved Hypertensive Urgency: Elevated to 192/103 in ED Per H and P:"Mentions BP has been elevated at recent check ups but does not have a BP cuff at home" On atenolol and amlodipine added lisinopril 10mg daily stable f/u with pcp GERD: on ranitidine NAYA: CPAP qHS Hypokalemia on potassium supplements started on lisinopril for htn f/u bmp in 1-2 weeks with pcp Discharged home Total time spent on discharge = 35MINUTES This includes examination of the patient, discharge planning, medication reconciliation, and communication with other providers. Discharge Instructions Discharge Instructions Date of Service Jan 02, 2017. Admission Reason for Admission: Hypertensive Urgency Discharge Discharge Diagnosis / Problem: sob. hypertensive urgency? Discharge Goals Goal(s): Decrease discomfort, Improve function Activity Recommendations Activity Limitations: resume your previous activity . Instructions / Follow-Up Instructions / Follow-Up FOLLOWUP WITH FAMILY DOCTOR ON Jan AT 1:25PM PULMONARY FUNCTION TEST OR STRESS TEST PER FAMILY DOCTOR LAB: BMP IN 1-2 WEEKS AND FOLLOW RESULTS WITH FAMILY DOCTOR STARTING ON NEW BLOOD PRESSURE MEDICATION LISINOPRIL AND ALSO HAS HX OF HYPOKALEMIA. Current Hospital Diet Patient's current hospital diet: AHA Diet (Heart Healthy), Low Sodium Diet (2gm Na) Discharge Diet Recommended Diet: AHA Diet (Heart Healthy) Pending Studies Studies pending at discharge: no Laboratory Results Hemoglobin A1c Test 01/01/17 05:33 Range/Units Estimated Average Glucose 148 mg/dl Hemoglobin A1c 6.8 H 4.5-5.6 % Medical Emergencies . Who to Call and When: Medical Emergencies: If at any time you feel your situation is an emergency, please call 911 immediately. . Non-Emergent Contact Non-Emergency issues call your: Primary Care Provider . . "Provider Documentation" section prepared by vEer Ruiz. . VTE Core Measure Inpt VTE Proph given/why not?: Enoxaparin (Lovenox)SQ
== END 2017-01-02 12:15 | disposition home or self-care (01) ==
LOC: C.EDB 10:33 → C.2T 16:34 → ENRESERV 17:28
PROVIDERS: ADMIT Hospitalist; ATTEND Internal Medicine
DX: R06.02 Shortness of breath (principal); I16.0 Hypertensive urgency; E87.6 Hypokalemia; E83.42 Hypomagnesemia; G47.33 Obstructive sleep apnea (adult) (pediatric); K21.9 Gastro-esophageal reflux disease without esophagitis; M81.0 Age-related osteoporosis without current pathological fracture; Z85.3 Personal history of malignant neoplasm of breast; Z85.42 Personal history of malignant neoplasm of other parts of uterus; Z79.899 Other long term (current) drug therapy

== ENCOUNTER 2017-05-19 06:35 | Inpatient (IN) | payer BC, OTHER ==
[2017-04-20 09:06] VITALS: Ht 167.6 cm; Wt 95.3 kg
--- NOTE | 2017-04-20 09:39 | PAT Medication Instructions ---
Service Date Apr 20, 2017. Current Home Medication List Albuterol Hfa (Ventolin Hfa), 2-4 PUFFS INH Q6H PRN for Shortness of Breath Amlodipine (Norvasc), 10 MG PO QPM Cholecalciferol (Vitamin D), 1 TAB PO QAM Colchicine (Colchicine), 0.6 MG PO BID PRN for GOUT Cyclobenzaprine Hcl (Flexeril), 10 MG PO HS PRN for Muscle Spasms Fluticasone Propionate (Nasal) (Flonase Allergy Relief), 2 SPRAYS DEVORA DAILY PRN for ALLERGIES Lisinopril (Zestril), 20 MG PO QAM Loratadine (Claritin), 10 MG PO HS Lorazepam (Ativan), 1 MG PO TID PRN for Anxiety Magnesium Chloride-Calcium Car (Slow-Mag), 1 TAB PO QPM Metoprolol Succinate (Toprol Xl), 50 MG PO QPM Potassium Chloride (Klor-Con Sprinkle), 20 MEQ PO BID Ranitidine Hcl (Zantac), 300 MG PO HS Medication Instructions For Your Scheduled Surgery - Hold the following medications 24 hours prior to surgery: Colchicine (Colchicine), 0.6 MG PO BID PRN for GOUT - Hold the following medications the morning of surgery: Cholecalciferol (Vitamin D), 1 TAB PO QAM Cyclobenzaprine Hcl (Flexeril), 10 MG PO HS PRN for Muscle Spasms Lisinopril (Zestril), 20 MG PO QAM Potassium Chloride (Klor-Con Sprinkle), 20 MEQ PO BID - Take the following medications the morning of surgery with a sip of water: Lorazepam (Ativan), 1 MG PO TID PRN for Anxiety (if needed) Fluticasone Propionate (Nasal) (Flonase Allergy Relief), 2 SPRAYS DEVORA DAILY PRN for ALLERGIES(if needed) Albuterol Hfa (Ventolin Hfa), 2-4 PUFFS INH Q6H PRN for Shortness of Breath(if needed) - Take the following medications as scheduled the night before surgery: Amlodipine (Norvasc), 10 MG PO QPM Ranitidine Hcl (Zantac), 300 MG PO HS Potassium Chloride (Klor-Con Sprinkle), 20 MEQ PO BID Metoprolol Succinate (Toprol Xl), 50 MG PO QPM Magnesium Chloride-Calcium Car (Slow-Mag), 1 TAB PO QPM Lorazepam (Ativan), 1 MG PO TID PRN for Anxiety(if needed) Loratadine (Claritin), 10 MG PO HS Fluticasone Propionate (Nasal) (Flonase Allergy Relief), 2 SPRAYS DEVORA DAILY PRN for ALLERGIES(if needed) Albuterol Hfa (Ventolin Hfa), 2-4 PUFFS INH Q6H PRN for Shortness of Breath(if needed) Cyclobenzaprine Hcl (Flexeril), 10 MG PO HS PRN for Muscle Spasms(if needed) If you have any questions please call us at [phone] or [phone] or [phone]
[2017-04-20 10:51] LABS: BASO % 0.2 %; BASO ABS # 0.02 K/uL (0-0.2); EOS % 2.9 %; EOS ABS # 0.29 K/uL (0-0.5); HEMOGLOBIN 13.2 g/dL (12.0-16.0); IG# 0.02 K/uL (0.00-0.02); LYMPH % 18.6 %; LYMPH ABS # 1.84 K/uL (1.2-3.4); MEAN CELL VOLUME 91.8 fL (80-100); MEAN CORPUSCULAR HEMOGLOBIN 31.1 pg (25-34); MEAN CORPUSCULAR HGB CONC 33.8 g/dl (32-36); MEAN PLATELET VOLUME 10.4 fL (7.4-10.4); MONO % 7.3 %; MONO ABS # 0.72 K/uL (0.11-0.59); NEUT % 70.8 %; NEUT ABS # 7.01 K/uL (1.4-6.5); PLATELET COUNT 221 K/uL (130-400); RED CELL DISTRIBUTION WIDTH CV 13.6 % (11.5-14.5); RED CELL DISTRIBUTION WIDTH SD 45.1 fL (36.4-46.3)
[2017-04-20 11:01] LABS: PTT PATIENT 24.5 SECONDS (21.0-31.0)
[2017-04-20 11:20] LABS: CALCIUM 8.8 mg/dl (8.5-10.1); CREATININE 1.1 mg/dl (0.60-1.20); POTASSIUM 3.3 mmol/L (3.5-5.1)
--- NOTE | 2017-05-14 23:03 | HISTORY & PHYSICAL EXAMINATION ---
DATE OF ADMISSION: 05/19/2017 CHIEF COMPLAINT: Bilateral knee pain and discomfort, right side greater than left. HISTORY OF PRESENT ILLNESS: The patient is a 76-year-old white female who presents for surgical treatment of her right knee. She has been a long-term patient of our practice, had been treated for knee arthritis for the past several years. The right knee has been worse than the left. She has had extensive conservative care including injection which provided some temporary relief only. It has become less effective, particularly in the right knee. The pain has become more debilitating. She has limited walking tolerance. She has nighttime discomfort. The more she walks, the more she limps and the more her knee hurts. She does have a history of right knee arthroscopy in the past. She would like to proceed with right knee replacement. PAST MEDICAL HISTORY: Significant for: 1. Hypertension. 2. History of sleep apnea with CPAP machine. 3. Gastroesophageal reflux disease. 4. Obesity with a BMI of 34. 5. History of breast cancer. 6. History of lung cancer. 7. Skin cancer. 8. Left leg cellulitis x1. PREVIOUS SURGERIES: Include: 1. Carpal tunnel release. 2. T&A. 3. Cataract surgery. 4. Port insertion. 5. Mastectomy. 6. Removal of lung lesion. 7. Right knee arthroscopy. 8. Toenail removal. 9. Hysterectomy. ALLERGIES: TO CIPRO, TRAMADOL, OXYCODONE, DOXEPIN, MELOXICAM. CURRENT MEDICINES: Include: 1. Cyclobenzaprine 10 mg a day for muscle spasm. 2. Meclizine 1-3 times per day p.r.n. 3. Lorazepam 1 mg a day. 4. Alprazolam 1 mg p.r.n. 5. Ibuprofen. 6. Tylenol. 7. Fluticasone nasal spray. 8. Benzonatate 3 times a day. SOCIAL HISTORY: A 76-year-old white female. She is . She does not smoke. No alcohol intake. FAMILY HISTORY: Noncontributory. REVIEW OF SYSTEMS: Negative for diabetes, neurologic problems, vascular problems or bleeding disorders. She does have this history of cellulitis in the left leg x1. Nothing recent. No history of DVT or PE. No dysuria. PHYSICAL EXAMINATION: GENERAL: Reveals a healthy, pleasant middle-aged female. She looks to be in pretty good health. HEENT: Benign. NECK: Supple, no lymphadenopathy. LUNGS: Clear to auscultation. HEART: Has a regular rate and rhythm. ABDOMEN: Soft, nontender, nondistended. EXTREMITIES: Grossly neurovascularly intact except as follows: Examination of the right knee reveals the patient walks with a slight bit of varus alignment. She has got well-healed portal sites around the knee. Small knee effusion. Range of motion about 10 degrees short of full extension to 110 degrees of flexion. There is no instability. No pain with hip motion. X-RAYS: X-rays of the right knee reviewed. They show advanced right knee DJD. She has tricompartmental disease. She has got chondrocalcinosis. ASSESSMENT: A 76-year-old white female with advanced right knee degenerative joint disease, unresponsive to conservative treatment. She would like to proceed with right knee replacement. PLAN: We will take her to the operating room and do right total knee replacement. The risks and benefits of this procedure were explained to the patient including but not limited to DVT, PE, , infection, neurologic injury, vascular injury, bleeding problem, pain, limited range of motion, stiffness, failure to relieve her symptoms, incomplete relief of symptoms, need for further surgery in the future, fracture, leg length inequality, nerve palsy, persistent pain, incomplete relief of symptoms, etc. The patient understands and desires to proceed. Informed consent was obtained. The patient reports a lot of allergies. We will have to be careful in managing her pain due to these multiple allergies and more just adverse reaction to medicines. She is planning to be discharged hopefully to [facility] for a brief rehab stay. We will likely use Dilaudid for postoperative pain control.
[2017-05-19] VITALS (10 sets, daily range): BP systolic 137–161; BP diastolic 68–86; PULSE 67–88; TEMP 36.5–37.3; O2SAT 91–99
[~2017-05-19] VITALS: Ht 167.6 cm; Wt 95.3 kg
[~2017-05-19 06:35] MED LIST changes: +ACETAMINOPHEN 500 MG TAB PO SCH; -ATEN-173 PO; +BUPIVACAINE 0.25% 30 ML VIAL ONE; +BUPIVACAINE 0.5 % 5 MG/1 ML PF 10ML VIAL ONE; +BUPIVACAINE LIPOSOME 266 MG, BUPIVACAINE/EPINEPHRINE INJ 50 ML, SODIUM CHLORIDE 0.9% PF... INFIL SCH; +CEFAZOLIN 2000MG IV PUSH 10 ML IV SCH; -CEPH500C PO; +CHECK SCOPOLAMINE PATCH PLACEMENT SCH; +CHOL20009 PO; +COLC0.6T54 PO; +FAMOTIDINE 20 MG TAB PO SCH; +GABAPENTIN 300 MG CAP PO SCH; -INDO-24 PO; +LACTATED RINGER'S 1000ML 1,000 ML IV SCH; +LACTATED RINGER'S 1000ML 500 ML IV SCH; +LACTATED RINGER'S 1000ML IV SCH; +LISI-725 PO; -LORA10TA5 PO; +LORA10TA6 PO; -MECL1TAB42 PO; +METO-217 PO; +METOCLOPRAMIDE HCL 10 MG TAB PO SCH; +SCOPOLAMINE 1.5 MG TDSY TD SCH; +TRANEXAMIC ACID INJ 1,000 MG in SYRINGE 0 ML IV SCH; +VNTHFA/IN INH
--- NOTE | 2017-05-19 06:54 | History & Physical Bridge Note ---
H&P Re-Evaluation Bridge Note: I have examined the patient, reviewed the History & Physical and in the interval since the performance of the History & Physical I have noted the following changes of clinical significance: No changes noted
[2017-05-19] MEDS ORDERED: ONDANSETRON INJ 2 MG/ML 2 ML VIAL IV PRN (07:30)
[2017-05-19] MEDS ORDERED: FENTANYL CITRATE INJ 50 MCG/1 ML 2 ML VIAL IV PRN (07:30)
[2017-05-19] MEDS ORDERED: EpHEDrine SULFATE INJ 50 MG/ML AMP IV PRN (07:30)
[2017-05-19] MEDS ORDERED: ATROPINE SULFATE 0.1 MG/ML 5ML SYR IV PRN (07:30)
[2017-05-19] MEDS: CHECK SCOPOLAMINE PATCH PLACEMENT SCH ×4 (08:00→23:30)
[2017-05-19] MEDS ORDERED: MIDAZOLAM HCL 1 MG/ML 2ML VIAL ONE (08:34)
[2017-05-19] MEDS ORDERED: SODIUM CHLORIDE 0.9% PF 50 ML VIAL ONE (08:44)
[2017-05-19] MEDS ORDERED: BUPIVACAINE LIPOSOME 1/3% 266 MG/20 ML VIAL INFIL ONE (08:44)
[2017-05-19] MEDS ORDERED: BACITRACIN 50000 UNIT VIAL ONE (08:44)
[2017-05-19] MEDS ORDERED: BUPIVACAINE/EPINEPHRINE 0.25% 1:200,000 30 ML VIAL ONE (08:44)
[2017-05-19] MEDS ORDERED: PROPOFOL IV EMULSION 10 MG/ML 20 ML VIAL IV ONE (10:04)
[2017-05-19] MEDS ORDERED: LIDOCAINE HCL 2% 2 ML VIAL (20MG/ML) ONE (10:04)
[2017-05-19] MEDS ORDERED: ZOLPIDEM TARTRATE 5 MG TAB PO PRN (10:30)
[2017-05-19] MEDS ORDERED: METOCLOPRAMIDE HCL INJ 5 MG/ML 2 ML VIAL IV PRN (10:30)
[2017-05-19] MEDS ORDERED: MAGNESIUM HYDROXIDE SUSP 30 ML UDC PO PRN (10:30)
[2017-05-19] MEDS ORDERED: LORAZEPAM 1 MG TAB PO PRN (10:30)
[2017-05-19] MEDS ORDERED: ALUMINUM/MAGNESIUM/SIMETH (MAALOX MAX) 30 ML UDC PO PRN (10:30)
[2017-05-19] MEDS ORDERED: HYDROmorphone INJ 0.5 MG/0.5 ML SYR IV PRN (10:30)
[2017-05-19] MEDS ORDERED: CYCLOBENZAPRINE HCL 10 MG TAB PO PRN (10:30)
[2017-05-19] MEDS ORDERED: BISACODYL 10 MG SUPP PR PRN (10:30)
[2017-05-19] MEDS ORDERED: ALBUTEROL HFA 8 GM INHALER INH PRN (10:30)
[2017-05-19] MEDS ORDERED: COLCHICINE 0.6 MG TAB PO PRN (10:30)
[2017-05-19] MEDS ORDERED: FLUTICASONE PROPIONATE NA SPR 16 GM BTL NAE PRN (10:30)
--- NOTE | 2017-05-19 10:30 | [facility] Post Operative Brief Note ---
Immediate Operative Summary Operative Date May 19, 2017. Pre-Operative Diagnosis Right Knee Advanced Degenerative Joint Disease Post-Operative Diagnosis Right Knee Advanced Degenerative Joint Disease Procedure(s) Performed Right Total Knee Arthroplasty Surgeon Dr. Paez Manufacturing Support Engineer Surgeon(s) STERLING Luciano Estimated Blood Loss 50 ml Findings Right Knee DJD Fluids (cc crystalloids) 1300 cc Specimens A. Right Knee Bone and Tissue Drains None Anesthesia Spinal Complication(s) None Disposition Recovery Room / PACU
--- NOTE | 2017-05-19 10:56 | OPERATIVE REPORT ---
DATE OF OPERATION: 05/19/2017 SURGEON: Toy Paez MD COMPLIANCE REVIEWER: STERLING Guerrero PREOPERATIVE DIAGNOSIS: Right knee degenerative joint disease. POSTOPERATIVE DIAGNOSIS: Same. PROCEDURE PERFORMED: Right cemented posterior stabilized total knee arthroplasty. COMPLICATIONS: None. ESTIMATED BLOOD LOSS: 50 mL. FLUID REPLACEMENT: 1300 mL crystalloid fluid replacement. TOURNIQUET TIME: Fifty three minutes at 300 mmHg. ANESTHESIA: Spinal with adductor canal block. DRAINS: None. SPECIMENS: Right knee sent for pathology. OPERATIVE INDICATIONS: The patient is a 76-year-old female who has had a fairly long history of bilateral knee pain and discomfort, right side greater than left. She has been through extensive conservative treatment which became less successful over time. X-rays showed tricompartmental DJD. The patient elected to proceed with operative treatment. OPERATIVE FINDINGS: Operative findings revealed advanced right knee DJD. She had pretty extensive grade 4 changes of the medial femoral condyle and medial tibial plateau. She had some focal grade 4 changes of the lateral compartment as well as patellofemoral compartment. She had a varus deformity to her knee. A moderate to large knee joint effusion. Slight flexion contracture of 10 degrees. OPERATIVE IMPLANTS: Operative implants consisted of: 1. Biomet Vanguard size 65 right posterior stabilized femoral component. 2. Biomet size 71 tibial tray. 3. A 10 mm posterior stabilized polyethylene insert. 4. A 31 x 8 all poly patella. OPERATIVE PROCEDURE: The patient taken to the operating room, identified and placed on the operating table in the supine position. All contact areas were appropriately padded. IV antibiotics were provided by anesthesia team. A spinal anesthetic and adductor canal block had been provided in the holding area. Steven catheter was placed in sterile fashion. Right thigh tourniquet was then placed and the right lower extremity was then prepped and draped in the usual sterile fashion. The right leg was elevated and exsanguinated with an Esmarch and tourniquet was placed at 300 mmHg. An anterior approach to the right knee was then performed through a longitudinal incision centered over the patella. Sharp dissection was carried out through the subcutaneous tissues down to the level of the extensor mechanism. A medial parapatellar arthrotomy incision was made and some subperiosteal dissection was carried out medially. The fat pad was resected from beneath the patellar tendon. The lateral patellofemoral ligament was released. Her quad tendon was fairly short, so we just subluxated the patella laterally. The knee was flexed. The osteophytes were taken off the distal femur. The ACL and PCL were then released from the distal femur and the tibia subluxated anteriorly. The external tibial alignment jig was then placed in the anterior face of the tibia and adjusted 14 mm medially. Proximal tibial cut was made to remove about 2 mm of bone from the most deficient aspect of the medial tibial plateau. The tibia was sized to a size 71. Attention was then drawn to the femur. The distal femur was entered with a sharp drill bit. Intramedullary canal was suctioned. A right 5 degree valgus cutting guide was placed. Distal femoral cutting block was pinned in place. Distal femoral cut was made to take an additional 3 mm of bone off the distal femur. The femur was then sized to a size 65. I did downsize this almost an entire size. The AP cutting block was pinned parallel to the epicondylar axis, which was 3 degrees of external rotation. The anterior cut, anterior chamfer, posterior cut, posterior chamfer cuts were made. Box cutting guide was placed and adjusted slightly lateral and the box cut was made. The knee was flexed. The remnants of the medial and lateral menisci were excised. The osteophytes were taken off the posterior aspect of the femur. Trial femoral component was placed. Tibial tray was pinned in maximum external rotation and a drill and stem punch were used to create defect in proximal tibia for the tibial tray. The knee was then trialed and the 10 mm insert fit most appropriately. Attention was then drawn to the patella. The patella was cleaned of all soft tissues. Patella thickness measured 20 mm and was cut down to 13. It was sized to a size 31 patella. Lug holes were drilled for the 31 patella. The lateral osteophyte was removed. Patella button was placed. Knee was taken through range of motion and the patella tracked nicely with no thumbs test. Attention was then drawn toward placement of the permanent components. All trial components were removed. A bone plug was placed in the distal femur to limit blood loss. A double batch of Palacos G cement was mixed. A right size 65 posterior stabilized femoral component, size 71 tibial tray, a 10 mm posterior stabilized polyethylene insert, and a 31 x 8 all poly patella were then cemented in place. Knee was brought out into full extension until cement hardened. A final cement check was then performed. Pericapsular tissues were injected with a total of 100 mL of a combination of 20 mL of Exparel, 30 mL of normal saline, 50 mL of 0.25% Marcaine with epinephrine. The patient did receive 1 gram of tranexamic acid. The tourniquet was then let down for a final tourniquet time of 53 minutes. Hemostasis was assured with use of electrocautery. The wound was once again irrigated. The extensor mechanism was then closed with a combination of #1 PDS suture and #1 Vicryl suture in a [id number] fashion. Extensor mechanism was checked and found to be intact. The subcutaneous tissues were then closed with 2-0 Dexon suture in a buried interrupted fashion. Skin was closed skin rolanda. Leg was then cleaned and dried and a sterile dressing of Xeroform, 4 x 4, sterile cast padding and Damian bandage were applied. The patient was then transferred to the recovery room in stable condition. The patient tolerated the procedure well with no complications. All needle and sponge counts were correct at the end of the operation. I attest to the content of the Intraoperative Record and any orders documented therein. Any exception s are noted below.
--- NOTE | 2017-05-19 11:11 | DIAGNOSTIC IMAGING REPORT ---
R KNEE 1 OR 2 VIEWS ROUTINE CLINICAL HISTORY: Postoperative evaluation. COMPARISON: Right knee radiographs January 22, 2017. FINDINGS: Alignment of the total right knee arthroplasty is anatomic. There is no fracture or unexpected radiopaque foreign body. Skin rolanda are present. IMPRESSION: Expected findings following total right knee arthroplasty. Electronically signed by: Tam Ferrari M.D. 05/19/2017 11:10 AM Dictated Date/Time: 05/19/2017 11:09 AM
--- NOTE | 2017-05-19 11:13 | Anesthesiology Progress Note ---
Anesthesia Post Op Note Date & Time May 19, 2017 at 11:13 Vital Signs Pain Intensity: 0 Vital Signs Past 12 Hours Date Time Temp Pulse Resp B/P (MAP) Pulse Ox O2 Delivery O2 Flow Rate FiO2 05/19/17 11:07 88 21 05/19/17 11:07 88 21 100 05/19/17 11:06 137/62 05/19/17 11:01 131/64 05/19/17 10:57 87 18 100 05/19/17 10:57 87 18 05/19/17 10:56 121/60 05/19/17 10:52 86 21 100 05/19/17 10:52 86 21 05/19/17 10:51 121/58 05/19/17 10:47 88 17 05/19/17 10:47 87 17 100 05/19/17 10:46 118/59 05/19/17 10:42 86 20 100 05/19/17 10:42 86 20 05/19/17 10:40 113/52 05/19/17 10:37 36.6 82 16 102/53 100 Oxymask 10 05/19/17 10:37 83 17 05/19/17 10:37 83 17 102/53 100 05/19/17 07:39 36.5 81 18 161/76 97 Room Air Notes Mental Status: alert / awake / arousable, participated in evaluation Pt Amnestic to Procedure: Yes Nausea / Vomiting: adequately controlled Pain: adequately controlled Airway Patency, RR, SpO2: stable & adequate BP & HR: stable & adequate Hydration State: stable & adequate Neuraxial Anesthesia: was administered, sensory block is resolving Anesthetic Complications: no major complications apparent
[2017-05-19] MEDS: FERROUS GLUCONATE 324 MG TAB PO SCH ×2 (13:05→17:45)
[2017-05-19] MEDS: D5W AND 1/2NSS + 20MEQ KCL 1,000 ML IV SCH ×2 (13:08→23:28)
[2017-05-19] MEDS: KETOROLAC TROMETHAMINE 15 MG/ML VIAL IV. SCH ×3 (13:08→23:29)
[2017-05-19] MEDS: TRAMADOL HCL 50 MG TAB PO PRN ×2 (13:13→21:00)
--- NOTE | 2017-05-19 13:14 | PROGRESS NOTE ---
DATE: 05/19/2017 SUBJECTIVE: A 76-year-old white female postop from a right knee replacement. She is doing well. Not having any significant pain yet. No chest pain or shortness of breath. Not feeling dizzy or lightheaded. OBJECTIVE: VITAL SIGNS: Temperature is 36.8. Vital signs stable. PHYSICAL EXAMINATION: GENERAL: Reveals a pleasant elderly female sitting up in bed and eating her lunch. She looks pretty comfortable. LUNGS: Clear to auscultation. HEART: Has a regular rate and rhythm. ABDOMEN: Soft, nontender, nondistended. EXTREMITIES: Grossly neurovascularly intact except as follows: Examination of the right leg reveals the dressing to be clean, dry and intact. Leg is well aligned. She can dorsiflex and plantarflex her foot appropriately. She is neurologically intact. She has brisk refill. Good distal pulse. X-RAYS: X-rays of the right knee from recovery room were reviewed. It shows a cemented posterior stabilized total knee arthroplasty. Components look to be in good position. No signs of problems. ASSESSMENT: A 76-year-old white female postop from a right knee replacement, doing well. Pain is controlled. She is neurologically intact. PLAN: 1. DVT prophylaxis including thigh-high TEDs, SCDs, and aspirin twice a day. 2. PT/OT. Weightbearing as tolerated. Right total knee protocol. 3. Pain control, doing well with current pain regimen. She will be difficult managing pain due to her multiple side effects to narcotics. We will try and stick to Tylenol, Toradol, and tramadol and only use Dilaudid if needed. 4. IV antibiotics x24 hours. 5. Disposition: She is hoping to be discharged to [facility] for a brief rehab stay.
[2017-05-19] MEDS: CEFAZOLIN IV 2,000 MG in SYRINGE 0 ML IV SCH ×2 (15:46→23:27)
[2017-05-19] MEDS ORDERED: TRANEXAMIC ACID INJ 1,000 MG in SODIUM CHLORIDE 0.9% 100ML 100 ML IV SCH (16:00)
[2017-05-19] MEDS: POTASSIUM CHLORIDE 20 MEQ TABCR PO SCH (17:50)
[2017-05-19] MEDS: METOPROLOL SUCC 50MG EXT REL TAB PO SCH (21:03)
[2017-05-19] MEDS: MAGNESIUM CHLORIDE 64MG DELAYED REL TAB PO SCH (21:03)
[2017-05-19] MEDS: RANITIDINE HCL 150 MG TAB PO SCH (21:04)
[2017-05-19] MEDS: LORATADINE 10 MG TAB PO SCH (21:04)
[2017-05-19] MEDS: DOCUSATE SODIUM 100 MG CAP PO SCH (21:05)
[2017-05-19] MEDS: SENNA 8.6 MG TAB PO SCH (21:05)
[2017-05-19] MEDS: AMLODIPINE BESYLATE 5 MG TAB PO SCH (21:06)
[2017-05-19] MEDS: ACETAMINOPHEN 500 MG TAB PO SCH (21:06)
[2017-05-19] MEDS: ASPIRIN 325 MG ECTAB PO SCH (21:06)
[2017-05-19] MEDS ORDERED: NURSING VERBAL MED ORDER ONE (21:15)
[2017-05-20 03:25] VITALS: BP 116/62; PULSE 74; TEMP 37; O2SAT 92
[2017-05-20] MEDS: ACETAMINOPHEN 500 MG TAB PO SCH ×3 (05:43→21:48)
[2017-05-20] MEDS: KETOROLAC TROMETHAMINE 15 MG/ML VIAL IV. SCH ×4 (05:44→23:46)
[2017-05-20 06:11] LABS: HEMATOCRIT 33.4 % (37-47); HEMOGLOBIN 11.4 g/dL (12.0-16.0); MEAN CORPUSCULAR HEMOGLOBIN 31.4 pg (25-34); MEAN CORPUSCULAR HGB CONC 34.1 g/dl (32-36); MEAN PLATELET VOLUME 9.9 fL (7.4-10.4); PLATELET COUNT 189 K/uL (130-400); RED CELL DISTRIBUTION WIDTH CV 13.8 % (11.5-14.5); RED CELL DISTRIBUTION WIDTH SD 46.3 fL (36.4-46.3); WHITE BLOOD COUNT 10.77 K/uL (4.8-10.8)
[2017-05-20 06:39] LABS: CALCIUM 7.8 mg/dl (8.5-10.1); CREATININE 1.07 mg/dl (0.60-1.20); POTASSIUM 3.5 mmol/L (3.5-5.1)
[2017-05-20 08:10] VITALS: BP 110/70; PULSE 61; TEMP 36.6; O2SAT 91
--- NOTE | 2017-05-20 08:15 | Anesthesiology Progress Note ---
Anesthesia Post Op Note Date & Time May 20, 2017 at 08:15 Vital Signs Pain Intensity: 2.0 Vital Signs Past 12 Hours Date Time Temp Pulse Resp B/P (MAP) Pulse Ox O2 Delivery O2 Flow Rate FiO2 05/20/17 08:10 36.6 61 16 110/70 (83) 91 Room Air 05/20/17 03:25 37.0 74 18 116/62 (80) 92 Room Air 05/19/17 23:34 37.3 81 14 137/86 (103) 91 Room Air 05/19/17 21:00 72 150/81 (104) 05/19/17 20:48 36.8 78 18 160/71 (100) 95 Room Air Notes Mental Status: alert / awake / arousable, participated in evaluation Pt Amnestic to Procedure: Yes Nausea / Vomiting: adequately controlled Pain: improving with treatment Airway Patency, RR, SpO2: stable & adequate BP & HR: stable & adequate Hydration State: stable & adequate Anesthetic Complications: no major complications apparent
[2017-05-20 08:28] VITALS: O2SAT 91
[2017-05-20] MEDS: CHECK SCOPOLAMINE PATCH PLACEMENT SCH ×3 (08:45→23:46)
[2017-05-20] MEDS: FERROUS GLUCONATE 324 MG TAB PO SCH ×3 (08:45→17:47)
[2017-05-20] MEDS: LISINOPRIL 20 MG TAB PO SCH (08:46)
[2017-05-20] MEDS: ASPIRIN 325 MG ECTAB PO SCH ×2 (08:46→20:54)
[2017-05-20] MEDS: MULTIVITAMIN TAB PO SCH (08:47)
[2017-05-20] MEDS: D5W AND 1/2NSS + 20MEQ KCL 1,000 ML IV SCH (08:47)
[2017-05-20] MEDS: CHOLECALCIFEROL 1000 INTER.UNIT TAB PO SCH (08:47)
[2017-05-20] MEDS: DOCUSATE SODIUM 100 MG CAP PO SCH ×2 (08:47→20:54)
[2017-05-20] MEDS: PANTOprazole SOD 40 MG TAB PO SCH (08:47)
[2017-05-20] MEDS: TRAMADOL HCL 50 MG TAB PO PRN ×2 (08:54→11:49)
[2017-05-20] MEDS: POTASSIUM CHLORIDE 20 MEQ TABCR PO SCH ×2 (10:05→17:47)
--- NOTE | 2017-05-20 11:26 | PROGRESS NOTE ---
DATE: 05/20/2017 DATE: 05/20/2017 SUBJECTIVE: A 76-year-old white female postop day 1 from a right knee replacement. She is doing well. Pain is controlled. Therapy went reasonably well. No chest pain or shortness of breath. Not feeling dizzy or lightheaded. OBJECTIVE: VITAL SIGNS: Temperature 36.6. Vital signs stable. PHYSICAL EXAMINATION: GENERAL: Reveals a pleasant elderly female. She was in the bathroom sitting on a chair washing up when I visited her this morning. LUNGS: Clear to auscultation. HEART: Regular rate and rhythm. ABDOMEN: Soft, nontender, nondistended. EXTREMITY EXAMINATION: Grossly neurovascularly intact except as follows: Examination of the right leg reveals the dressing to be clean, dry and intact. She can dorsiflex and plantarflex her foot appropriately. She is neurologically intact. LABORATORY DATA: Hemoglobin 11.4. Hematocrit 33.4. Electrolytes are stable. ASSESSMENT: A 76-year-old white female postop day 1 from right knee replacement, doing pretty well. Pain is controlled. Therapy went reasonably well. PLAN: 1. DVT prophylaxis including thigh-high TEDs, SCDs, and aspirin twice a day. 2. PT/OT. Weightbearing as tolerated. Right total knee protocol. 3. Pain control. Doing pretty well with current pain regimen. 4. Disposition. She was hoping to go to [facility]. We are kind of waiting to hear whether she is approved. If not she will likely go home with home health.
[2017-05-20] MEDS ORDERED: ASPEC325 PO (11:42)
[2017-05-20] MEDS ORDERED: ACET-24 PO (11:42)
[2017-05-20] MEDS ORDERED: ULT50X PO (11:42)
[2017-05-20 12:42] VITALS: BP 144/76; PULSE 68; TEMP 36.8; O2SAT 91
[2017-05-20 15:01] VITALS: BP 136/76; PULSE 76; TEMP 36.9; O2SAT 91
[2017-05-20 20:52] VITALS: BP 126/74; PULSE 67
[2017-05-20] MEDS: AMLODIPINE BESYLATE 5 MG TAB PO SCH (20:54)
[2017-05-20] MEDS: METOPROLOL SUCC 50MG EXT REL TAB PO SCH (20:54)
[2017-05-20] MEDS: LORATADINE 10 MG TAB PO SCH (20:54)
[2017-05-20] MEDS: RANITIDINE HCL 150 MG TAB PO SCH (20:55)
[2017-05-20] MEDS: SENNA 8.6 MG TAB PO SCH (20:55)
--- NOTE | 2017-05-20 21:03 | Discharge Instructions ---
Discharge Instructions Date of Service May 20, 2017. Admission Reason for Admission: Right Knee Degenerative Joint Disease Discharge Discharge Diagnosis / Problem: Right Knee Replacement Discharge Goals Goal(s): Decrease discomfort, Improve function, Increase independence, Improve disease control, Therapeutic intervention Activity Recommendations Activity Level: Assistance Required Therapies: Physical Therapy, Occupational Therapy Weightbearing Status: Right weightbearing . Additional Information Patient informed of condition: Yes Advance Directives: Yes DNR: No Level of Care: Acute Rehab Communicable Disease: No Prognosis: Improving Instructions / Follow-Up Instructions / Follow-Up ACTIVITY RECOMMENDATIONS: Physical Therapy: * You will go to physical therapy three times each week for four to six weeks after your surgery in order to regain your knee range of motion and to retrain your knee to work properly. * It is just as important to make sure you are getting your knee perfectly straight as it is to regain your knee bend. * Taking a pain pill an hour before therapy can help you have a more productive and comfortable therapy session. Home Exercise: * You were shown a series of exercises (heel props, heel slides, etc.) in the hospital. Do these exercises three to four times each day including the exercises you were shown in physical therapy. Walking: * Get up and walk several times each day. For the first four weeks, try not to stand or walk for more than one hour at a time. If you do stand or walk for more than one hour, you will not hurt anything, but your knee and leg will likely swell. * As you feel comfortable, you may change from the walker or crutches to a cane and then to independent walking. MEDICATIONS: New Medicine: * You will likely be taking one or more of these medications: 1. Tramadol - A quick and shorter-acting pain medication. Take one to two tablets every four to six hours to lessen your pain. 2. Aspirin - Thins your blood to lessen the chance of forming a blood clot. * The most common side effects of pain medicine and iron are nausea and constipation. If nausea or constipation is too much of a problem or if you have any questions about your new medicines or doses, call [facility] at . We will try to help you manage these issues. VERY IMPORTANT TO READ AND REVIEW" Pain: * The immediate post-operative period after knee replacement surgery is often quite painful. * You are given a prescription for pain medicine. You should take it, as directed, when you need it, especially before physical therapy and before going to bed. Pain that interferes with sleep is very common and can last several months. * You will likely need pain medicine for the first four to six weeks. It will not stop all of the pain. The pain will lessen and as you feel better, you may change to milder pain medicine such as Tylenol. * The most common side effects of pain medicine are nausea and constipation, so don't take more than you need. SPECIAL CARE INSTRUCTIONS: TEDs/Elastic Stockings: * The white elastic stockings help limit swelling and prevent blood clots from forming in your legs. The more you wear them, the more they work. * Wear them for six weeks after knee replacement surgery and four weeks after partial knee replacement. Prevention of Infection: * Take antibiotics one hour before any dental cleaning, dental work, urological procedure, gastrointestinal procedure or any invasive surgery in order to prevent your new joint from getting infected. * You may get the antibiotics from the doctor performing the procedure or you may call our office at before and we will call in a prescription to the pharmacy of your choice. Things to Watch For: * Drainage from the incision site that occurs more than one week after your surgery. * Severely increased knee/leg pain or swelling. * Increased redness at the incision site. * Fever above 102 degrees Fahrenheit. * Unusual chest pain or shortness of breath. * Unusual pain or burning with urination. Call [facility] at with any of the above problems or if you have any questions about your medicines or recovery. FOLLOW UP VISIT: Make an appointment to see your doctor for approximately two weeks after surgery for a progress check and staple removal by calling the office at . Current Hospital Diet Patient's current hospital diet: Regular Diet Discharge Diet Recommended Diet: Regular Diet Procedures Procedures Performed: Right Total Knee Arthroplasty Pending Studies Studies pending at discharge: no Medical Emergencies . Who to Call and When: Medical Emergencies: If at any time you feel your situation is an emergency, please call [phone] immediately. . Non-Emergent Contact Non-Emergency issues call your: Surgeon . . "Provider Documentation" section prepared by Toy Paez. . Core Measure Problem Core Measures: None
--- NOTE | 2017-05-20 21:05 | Discharge Instructions ---
Discharge Instructions Date of Service May 20, 2017. Admission Reason for Admission: Right Knee Degenerative Joint Disease Discharge Discharge Diagnosis / Problem: Right Knee Replacement Discharge Goals Goal(s): Decrease discomfort, Improve function, Increase independence, Improve disease control, Therapeutic intervention Activity Recommendations Activity Limitations: per Instructions/Follow-up section Weightbearing Status: Right weightbearing . Instructions / Follow-Up Instructions / Follow-Up ACTIVITY RECOMMENDATIONS: Physical Therapy: * You will go to physical therapy three times each week for four to six weeks after your surgery in order to regain your knee range of motion and to retrain your knee to work properly. * It is just as important to make sure you are getting your knee perfectly straight as it is to regain your knee bend. * Taking a pain pill an hour before therapy can help you have a more productive and comfortable therapy session. Home Exercise: * You were shown a series of exercises (heel props, heel slides, etc.) in the hospital. Do these exercises three to four times each day including the exercises you were shown in physical therapy. Walking: * Get up and walk several times each day. For the first four weeks, try not to stand or walk for more than one hour at a time. If you do stand or walk for more than one hour, you will not hurt anything, but your knee and leg will likely swell. * As you feel comfortable, you may change from the walker or crutches to a cane and then to independent walking. MEDICATIONS: New Medicine: * You will likely be taking one or more of these medications: 1. Tramadol - A quick and shorter-acting pain medication. Take one to two tablets every four to six hours to lessen your pain. 2. Aspirin - Thins your blood to lessen the chance of forming a blood clot. * The most common side effects of pain medicine and iron are nausea and constipation. If nausea or constipation is too much of a problem or if you have any questions about your new medicines or doses, call [facility] at . We will try to help you manage these issues. VERY IMPORTANT TO READ AND REVIEW" Pain: * The immediate post-operative period after knee replacement surgery is often quite painful. * You are given a prescription for pain medicine. You should take it, as directed, when you need it, especially before physical therapy and before going to bed. Pain that interferes with sleep is very common and can last several months. * You will likely need pain medicine for the first four to six weeks. It will not stop all of the pain. The pain will lessen and as you feel better, you may change to milder pain medicine such as Tylenol. * The most common side effects of pain medicine are nausea and constipation, so don't take more than you need. SPECIAL CARE INSTRUCTIONS: TEDs/Elastic Stockings: * The white elastic stockings help limit swelling and prevent blood clots from forming in your legs. The more you wear them, the more they work. * Wear them for six weeks after knee replacement surgery and four weeks after partial knee replacement. Prevention of Infection: * Take antibiotics one hour before any dental cleaning, dental work, urological procedure, gastrointestinal procedure or any invasive surgery in order to prevent your new joint from getting infected. * You may get the antibiotics from the doctor performing the procedure or you may call our office at before and we will call in a prescription to the pharmacy of your choice. Things to Watch For: * Drainage from the incision site that occurs more than one week after your surgery. * Severely increased knee/leg pain or swelling. * Increased redness at the incision site. * Fever above 102 degrees Fahrenheit. * Unusual chest pain or shortness of breath. * Unusual pain or burning with urination. Call [facility] at with any of the above problems or if you have any questions about your medicines or recovery. FOLLOW UP VISIT: Make an appointment to see your doctor for approximately two weeks after surgery for a progress check and staple removal by calling the office at . Current Hospital Diet Patient's current hospital diet: Regular Diet Discharge Diet Recommended Diet: Regular Diet Procedures Procedures Performed: Right Total Knee Arthroplasty Pending Studies Studies pending at discharge: no Medical Emergencies . Who to Call and When: Medical Emergencies: If at any time you feel your situation is an emergency, please call [phone] immediately. . Non-Emergent Contact Non-Emergency issues call your: Surgeon . "Provider Documentation" section prepared by Toy Paez. . VTE Core Measure Inpt VTE Proph given/why not?: Other Anticoagulation, T.E.D. Stockings, SCD's
[2017-05-20] MEDS: MAGNESIUM CHLORIDE 64MG DELAYED REL TAB PO SCH (21:48)
[2017-05-21 00:12] VITALS: BP 154/72; PULSE 71; TEMP 37; O2SAT 93
[2017-05-21] MEDS: KETOROLAC TROMETHAMINE 15 MG/ML VIAL IV. SCH (05:56)
[2017-05-21] MEDS: ACETAMINOPHEN 500 MG TAB PO SCH ×3 (05:58→22:03)
[2017-05-21 06:38] VITALS: BP 108/71; PULSE 64; TEMP 36.9; O2SAT 95
--- NOTE | 2017-05-21 07:26 | PROGRESS NOTE ---
DATE: 05/21/2017 SUBJECTIVE: A 76-year-old white female postop day #2 from a knee replacement surgery. She is doing pretty well. Pain seems to be controlled. A little bit more pain with the therapy, which is the expected. Denies any chest pain or shortness of breath. Not feeling dizzy or lightheaded. OBJECTIVE: VITAL SIGNS: Temperature 36.9. Vital signs stable. GENERAL: Physical examination reveals a pleasant, middle-aged female. She is sitting up in her bedside chair and looks pretty comfortable. EXTREMITIES: Examination of the right leg reveals the dressing to be clean, dry and intact. No significant drainage on the dressing. Her calf is soft and supple. She is neurologically intact. ASSESSMENT: A 76-year-old white female postop day #2 from a right knee replacement, doing well. Pain is controlled. PLAN: 1. DVT prophylaxis including thigh-high TEDs, SCDs, and aspirin twice a day. 2. PT/OT. Weightbear as tolerated. Right total knee protocol. 3. Pain control. Doing pretty well with current pain regimen. 4. Disposition: She is hoping to be discharged to [facility]. If she is not, she will likely go home with home health.
[2017-05-21] MEDS: CHECK SCOPOLAMINE PATCH PLACEMENT SCH ×3 (07:29→23:25)
[2017-05-21] MEDS: TRAMADOL HCL 50 MG TAB PO PRN ×3 (07:32→20:59)
[2017-05-21] MEDS: PANTOprazole SOD 40 MG TAB PO SCH (07:32)
[2017-05-21] MEDS: DOCUSATE SODIUM 100 MG CAP PO SCH ×2 (07:33→20:51)
[2017-05-21] MEDS: MULTIVITAMIN TAB PO SCH (07:33)
[2017-05-21] MEDS: FERROUS GLUCONATE 324 MG TAB PO SCH ×3 (07:33→18:26)
[2017-05-21] MEDS: CHOLECALCIFEROL 1000 INTER.UNIT TAB PO SCH (07:33)
[2017-05-21] MEDS: LISINOPRIL 20 MG TAB PO SCH (07:33)
[2017-05-21] MEDS: ASPIRIN 325 MG ECTAB PO SCH ×2 (07:34→20:51)
[2017-05-21] MEDS: POTASSIUM CHLORIDE 20 MEQ TABCR PO SCH ×2 (07:34→18:26)
[2017-05-21] MEDS: ONDANSETRON INJ 2 MG/ML 2 ML VIAL IV PRN (09:25)
[2017-05-21 15:31] VITALS: BP 143/77; PULSE 66; TEMP 36.7; O2SAT 96
[2017-05-21] MEDS: RANITIDINE HCL 150 MG TAB PO SCH (20:50)
[2017-05-21] MEDS: LORATADINE 10 MG TAB PO SCH (20:50)
[2017-05-21] MEDS: SENNA 8.6 MG TAB PO SCH (20:51)
[2017-05-21] MEDS: AMLODIPINE BESYLATE 5 MG TAB PO SCH (20:51)
[2017-05-21] MEDS: METOPROLOL SUCC 50MG EXT REL TAB PO SCH (20:51)
[2017-05-21 20:53] VITALS: BP 155/78; PULSE 78
[2017-05-21] MEDS: MAGNESIUM CHLORIDE 64MG DELAYED REL TAB PO SCH (22:02)
[2017-05-21 23:43] VITALS: BP 127/71; PULSE 73; TEMP 37; O2SAT 95
[2017-05-22] MEDS: ACETAMINOPHEN 500 MG TAB PO SCH (05:27)
[2017-05-22] MEDS: TRAMADOL HCL 50 MG TAB PO PRN (07:17)
[2017-05-22 07:18] VITALS: BP 138/79; PULSE 66; TEMP 36.7; O2SAT 92
[2017-05-22] MEDS: ONDANSETRON INJ 2 MG/ML 2 ML VIAL IV PRN (08:20)
[2017-05-22] MEDS: MULTIVITAMIN TAB PO SCH (08:46)
[2017-05-22] MEDS: CHOLECALCIFEROL 1000 INTER.UNIT TAB PO SCH (08:46)
[2017-05-22] MEDS: POTASSIUM CHLORIDE 20 MEQ TABCR PO SCH (08:46)
[2017-05-22] MEDS: FERROUS GLUCONATE 324 MG TAB PO SCH (08:46)
[2017-05-22] MEDS: LISINOPRIL 20 MG TAB PO SCH (08:46)
[2017-05-22] MEDS: ASPIRIN 325 MG ECTAB PO SCH (08:46)
[2017-05-22 08:48] VITALS: BP 138/79; PULSE 66; TEMP 36.7; O2SAT 92
[2017-05-22] MEDS: DOCUSATE SODIUM 100 MG CAP PO SCH (08:48)
[2017-05-22] MEDS: PANTOprazole SOD 40 MG TAB PO SCH (08:52)
--- NOTE | 2017-05-22 15:12 | PROGRESS NOTE ---
DATE: 05/22/2017 DATE: 05/22/2017 SUBJECTIVE: A 76-year-old white female postop day 3 from right knee replacement. She is doing well. Pretty painful, but no other complaints. No chest pain or shortness of breath. We have been waiting for replacement. OBJECTIVE: VITAL SIGNS: Temperature 36.7. Vital signs stable. EXTREMITIES: Examination of the right leg reveals trace bit of bloody drainage on the dressing. The leg is well aligned. She can dorsiflex and plantarflex her foot appropriately. Calf is soft and supple. ASSESSMENT: A 76-year-old white female postop day 3 from right knee replacement, doing pretty well. PLAN: 1. DVT prophylaxis including thigh high TEDs, SCDs, and aspirin twice a day. 2. PT, OT. Weight bear as tolerated. Right total knee protocol. 3. Pain control. Doing reasonably well with current pain regimen. Try to limit narcotic use to avoid confusion issues. 4. Disposition. She is hoping to go to [facility]. If not, she is going to go home with home health. Awaiting insurance authorization.
== END 2017-05-22 10:15 | disposition home health service (06) | DRG 470 ==
LOC: C.ACU 06:35 → C.3E 07:05 → ENRESERV 11:02
PROVIDERS: ADMIT Orthopaedic Surgery Sports Medicine; ATTEND Orthopaedic Surgery Sports Medicine
PROC: 0SRC0J9 Replacement of Right Knee Joint with Synthetic Substitute, Cemented, Open Approach (ICD-10-PCS; principal; 2017-05-19 08:45)
DX: M17.11 Unilateral primary osteoarthritis, right knee (principal); I10 Essential (primary) hypertension; E66.9 Obesity, unspecified; Z68.34 Body mass index [BMI] 34.0-34.9, adult; Z79.899 Other long term (current) drug therapy

== ENCOUNTER 2018-07-06 09:57 | Inpatient (IN) ==
--- NOTE | 2018-06-25 13:36 | PAT Medication Instructions ---
Medication Instructions Date of Service June 25, 2018 Home Medications albuterol sulfate 2 puff INHALATION QID PRN alendronate [Fosamax] 1 tab PO WK amlodipine 10 mg PO QAM amoxicillin 4 cap PO UD PRN atorvastatin 20 mg PO QAM cholecalciferol (vitamin D3) 2,000 unit PO QAM colchicine 0.6 mg PO UD PRN ibuprofen 2 tab PO UD PRN lisinopril 20 mg PO QAM loratadine 10 mg PO DAILY lorazepam 0.5 mg PO UD PRN magnesium chloride 64 mg PO BID metoprolol succinate 50 mg PO QAM potassium chloride 10 meq PO TID ranitidine HCl 300 mg PO HS spironolactone 12.5 tab PO QAM tizanidine 4 mg PO UD PRN Continue as directed amoxicillin 4 cap PO UD PRN alendronate [Fosamax] 1 tab PO WK ASK your surgeon for instructions ibuprofen 2 tab PO UD PRN STOP taking 24 hours before surgery colchicine 0.6 mg PO UD PRN DO NOT take the morning of surgery cholecalciferol (vitamin D3) 2,000 unit PO QAM lisinopril 20 mg PO QAM loratadine 10 mg PO DAILY magnesium chloride 64 mg PO BID potassium chloride 10 meq PO TID spironolactone 12.5 tab PO QAM tizanidine 4 mg PO UD PRN Take morning of surgery With a small sip of water, OTHERWISE NOTHING TO EAT OR DRINK AFTER MIDNIGHT: albuterol sulfate 2 puff INHALATION QID PRN (use if needed; please bring with you to hospital day of surgery if possible) amlodipine 10 mg PO QAM atorvastatin 20 mg PO QAM lorazepam 0.5 mg PO UD PRN (if needed) metoprolol succinate 50 mg PO QAM Other Notes If you have any questions please call us at [phone] or [phone] or [phone] or [phone]
--- NOTE | 2018-06-28 09:32 | Anesthesiology Consultation ---
Date of Service June 28, 2018 Assessment & Plan (1) Encounter for pre-operative examination: Plan: - Cardio= 04/07/18= stable LOCKETT. 2017 nuclear stress test was "normal." Patient "stable." Continued on same regimen; F/U 9 months recommended. - LUE limb restriction s/p left mastectomy. Chart Review Chart Review: Acceptable Risk for Surgery and Patient seen in Pre Admission Testing Teaching & Discussion Pre-Anesthesia Teaching/Discussion Notes: Instructed NPO after midnight before surgery,except medications with 15 cc of water. Medication instructions provided according to the PAT guidelines. History Surgery Operation Date: 07/06/18 10:40 Proposed Procedures p Right Reverse Total Shoulder Arthroplasty - Avinash Givens DO Height/Weight Height: 5 ft 6 in Weight: 96 kg Allergies Allergy/AdvReac Type Severity Reaction Status Date / Time castor oil Allergy Unknown ANAPHYLACTI Verified 06/23/18 08:04 C Cipro Allergy Unknown HIVES Verified 05/19/17 06:57 ciprofloxacin Allergy Unknown HIVES Verified 06/23/18 08:04 paclitaxel Allergy Unknown ANAPHYLACTI Verified 06/23/18 08:04 C codeine AdvReac Unknown GI SYMPTOMS Verified 06/23/18 08:04 cyproheptadine AdvReac Unknown lethargy Verified 06/23/18 08:04 doxepin AdvReac Unknown lethargy Verified 06/23/18 08:04 gabapentin AdvReac Unknown GI SYMPTOMS Verified 06/28/18 09:33 hydrocodone AdvReac Unknown GI SYMPTOMS Verified 06/23/18 08:04 meloxicam AdvReac Unknown dizzy,heada Verified 06/23/18 08:04 michael,nausea oxycodone AdvReac Unknown GI SYMPTOMS Verified 06/23/18 08:04 prednisone AdvReac Unknown ELEVATED Verified 06/23/18 08:04 GLUCOSE tramadol AdvReac Unknown GI SYMPTOMS Verified 06/23/18 08:04 Ethanol Allergy Unknown ANAPHYLACTIC-- Uncoded 06/28/18 09:33 PATIENT DENIES* Medications Home Medications Medication Instructions Recorded Confirmed Last Taken albuterol sulfate 2 puff INHALATION QID PRN 06/23/18 06/23/18 Unknown alendronate [Fosamax] 1 tab PO WK 06/23/18 06/23/18 06/20/18 amlodipine 10 mg PO QAM 06/23/18 06/23/1806/22/19 amoxicillin 4 cap PO UD PRN 06/23/18 06/23/18 Unknown atorvastatin 20 mg PO QAM 06/23/18 06/23/18 06/22/18 cholecalciferol (vitamin D3) 2,000 unit PO QAM 06/23/18 06/23/18 Unknown [Vitamin D3] colchicine 0.6 mg PO UD PRN 06/23/18 06/23/18 Unknown ibuprofen 2 tab PO UD PRN 06/23/18 06/23/18 Unknown lisinopril 20 mg PO QAM 06/23/18 06/23/18 06/22/18 loratadine 10 mg PO DAILY 06/23/18 06/23/18 Unknown lorazepam 0.5 mg PO UD PRN 06/23/18 06/23/18 Unknown magnesium chloride 64 mg PO BID 06/23/18 06/23/18 06/22/18 metoprolol succinate 50 mg PO QAM 06/23/18 06/23/18 06/22/18 potassium chloride 10 meq PO TID 06/23/18 06/23/18 Unknown ranitidine HCl 300 mg PO HS 06/23/18 06/23/18 06/22/18 spironolactone 12.5 tab PO QAM 06/23/18 06/23/18 06/22/18 tizanidine 4 mg PO UD PRN 06/23/18 06/23/18 Unknown Past Medical History Medical History Acid reflux Anxiety Gout History of breast cancer S/P CHEMO (LAST CHEMO 2015) History of bronchitis INHALER PRN; NO RECENT ISSUES History of kidney stones History of lung cancer S/P RUL WEDGE RESECTION History of skin cancer History of uterine cancer Hypertension Kidney disease STAGE III Obesity Osteoporosis Prediabetes Vertigo RARE Past Family History Family History Mother History of breast cancer History of ovarian cancer Grandmother History of colon cancer Past Surgical History Surgical History History of colonoscopy History of hysterectomy History of left mastectomy History of lung surgery RIGHT LUNG NODULE EXCISION/PARTIAL LUNG RESECTION History of surgery A-PORT (RIGHT) PLACED 2/2 CHEMO History of tonsillectomy and adenoidectomy History of total right knee replacement 05/19/17= SAB X 1 ATTEMPT + PNB AT [facility] Past Anesthesia History No Hx of Anesthesia Complications and No Family Hx of Anesthesia Complications History of PONV No Motion Sickness Screening History of Motion Sickness: No Social History Smoking Status: Never smoker Do You Dip or Chew Tobacco: No Hx Alcohol Use: Yes Alcohol type: wine alcohol intake frequency: holidays/special occasions only Hx Substance Use: No substance use type: does not use Exercise / Class Metabolic Activity III < 4 Walking/Shop/Light housework Review of Systems Right shoulder pain with RUE radiculopathy. Denies neuropathy. Patient denies chest pain, shortness of breath, cough, wheezing, palpitations. Physical Exam Vital Signs VITALS BP 123/70 P 67 TEMP 98.5 SP02 95%RA RESP 18 PHYSICAL Full neck and c-spine range of motion. Full TMJ range of motion. TMD 3.5 finger breaths Mallampati Score 3 Dentition: intact Lungs: clear throughout to auscultation Cardiac: regular rate and rhythm, no murmurs noted Spine: normal Carotid arteries: negative bruit Extremities: no edema Testing Electrocardiogram Date: 06/28/18 Findings: + NSR @ (61) Echocardiogram Date: 12/31/16 EF 65-70%. No RWMA. Mild cLVH. Sigmoid appearing septum. Grade I DD. Moderate AV sclerosis. Stress Test Date: 02/06/17 Type: nuclear Combined low intensity exercise/Lexiscan nuclear stress test negative for inducible ischemia. LVEF with stress 82%. 2METS. 103%MPHR. Other Testing Chest CT= 06/01/18= No speicific findins of recurrent or metastatic lung cancer in the chest s/p RUL wedge resection and left mastectomy. Stable findings. Similar dilated main pulmonary artery 3.4cm. Macrocalcification in the right breast stable. Subcutaneous 9mm soft tissue nodule in posterior risk chest unchanged (likely sebaceous cyst). Spleen granulomas. Small hiatal hernia. Old rib fractures. Nonobstructing right renal stones. Laboratory Results 06/28/18 09:51 06/28/18 09:51 Blood Type O Positive 06/28/18 09:51 Antibody Screen NEGATIVE 06/28/18 09:51 PT 10.5 Seconds (9.0-12.0) 06/28/18 09:51 INR 1.0 (0.9-1.1) 06/28/18 09:51 APTT 23.6 Seconds (21.0-31.0) 02/25/19 09:51
[2018-06-28 10:20] LABS: Basophils # (auto) 0.02 K/uL (0-0.2); Basophils % (auto) 0.2 %; Eosinophils # (auto) 0.52 K/uL (0-0.5); Eosinophils % (auto) 5.1 %; Hematocrit (blood only) 40.7 % (37-47); Hemoglobin 13.6 g/dL (12.0-16.0); Immature Granulocytes # (auto) 0.02 K/uL (0.00-0.02); Immature Granulocytes % (auto) 0.2 %; Lymphocytes # (auto) 2.68 K/uL (1.2-3.4); Lymphocytes % (auto) 26.2 %; Mean Corpuscular Hgb Conc 33.4 g/dL (32-36); Mean Corpuscular Volume 90.8 fL (80-100); Mean Platelet Volume 10.1 fL (7.4-10.4); Monocytes # (auto) 0.74 K/uL (0.11-0.59); Monocytes % (auto) 7.2 %; Neutrophils # (auto) 6.25 K/uL (1.4-6.5); Neutrophils % (auto) 61.1 %; Platelet Count 248 K/uL (130-400); RDW Coefficient of Variation 13.9 % (11.5-14.5); RDW Standard Deviation 45.7 fL (36.4-46.3); Red Blood Count 4.48 M/uL (4.2-5.4); White Blood Count 10.23 K/uL (4.8-10.8)
[2018-06-28 10:30] LABS: BUN Creatinine Ratio 22.4 (10-20); Calcium 8.6 mg/dl (8.5-10.1); Creatinine Clr Calc Pharmacy 51.9 ml/min; Est GFR (African American) 58.7; Est GFR (Non-African American) 50.6; Potassium 3.8 mmol/L (3.5-5.1)
[2018-06-28 10:35] LABS: Partial Thromboplastin Ratio 0.9; Partial Thromboplastin Time 23.6 Seconds (21.0-31.0); Prothrombin Time 10.5 Seconds (9.0-12.0)
--- NOTE | 2018-07-06 06:12 | History & Physical Report ---
Date of Service July 06, 2018 Assessment & Plan (1) Rotator cuff arthropathy of right shoulder: We will proceed with a reverse right total shoulder arthroplasty. Postoperatively she will be placed in a sling and kept overnight in the hospital for postop medical management. She plans to use energy physical therapy upon discharge. Present on Admission?: Yes History of Present Illness Chief Complaint: Rotator cuff arthropathy of the right shoulder Primary Care Provider: Hank Murguiayonatanjosue Dianne is a pleasant 77-year-old female who is been dealing with chronic bilateral shoulder pain. MRI of her right shoulder in 2009 showed a medium- sized rotator cuff tear. It was repairable back then. She did not have surgery at that time. She is been treated with serial injections. Unfortunately her shoulder pain is gotten much worse. She has trouble doing activities away from her body and overhead. X-rays showed possible rotator cuff arthropathy so I sent her for an MRI. MRI then showed a massive chronic retracted rotator cuff tear. After failing conservative treatment, she is elected proceed with a reverse right shoulder arthroplasty. Allergies Allergy/AdvReac Type Severity Reaction Status Date / Time castor oil Allergy Unknown ANAPHYLACTI Verified 06/23/18 08:04 C Cipro Allergy Unknown HIVES Verified 05/19/17 06:57 ciprofloxacin Allergy Unknown HIVES Verified 06/23/18 08:04 paclitaxel Allergy Unknown ANAPHYLACTI Verified 06/23/18 08:04 C codeine AdvReac Unknown GI SYMPTOMS Verified 06/23/18 08:04 cyproheptadine AdvReac Unknown lethargy Verified 06/23/18 08:04 doxepin AdvReac Unknown lethargy Verified 06/23/18 08:04 gabapentin AdvReac Unknown GI SYMPTOMS Verified 06/28/18 09:33 hydrocodone AdvReac Unknown GI SYMPTOMS Verified 06/23/18 08:04 meloxicam AdvReac Unknown dizzy,heada Verified 06/23/18 08:04 michael,nausea oxycodone AdvReac Unknown GI SYMPTOMS Verified 06/23/18 08:04 prednisone AdvReac Unknown ELEVATED Verified 06/23/18 08:04 GLUCOSE tramadol AdvReac Unknown GI SYMPTOMS Verified 06/23/18 08:04 Ethanol Allergy Unknown ANAPHYLACTIC-- Uncoded 06/28/18 09:33 PATIENT DENIES* Home Medications Home Medications Medication Instructions Recorded Confirmed Type albuterol sulfate 2 puff INHALATION QID PRN 06/23/18 06/23/18 History alendronate [Fosamax] 1 tab PO WK 06/23/18 06/23/18 History amlodipine 10 mg PO QAM 06/23/18 06/23/18 History amoxicillin 4 cap PO UD PRN 06/23/18 06/23/18 History atorvastatin 20 mg PO QAM 06/23/18 06/23/18 History cholecalciferol (vitamin D3) 2,000 unit PO QAM 06/23/18 06/23/18 History [Vitamin D3] colchicine 0.6 mg PO UD PRN 06/23/18 06/23/18 History ibuprofen 2 tab PO UD PRN 06/23/18 06/23/18 History lisinopril 20 mg PO QAM 06/23/18 06/23/18 History loratadine 10 mg PO DAILY 06/23/18 06/23/18 History lorazepam 0.5 mg PO UD PRN 06/23/18 06/23/18 History magnesium chloride 64 mg PO BID 06/23/18 06/23/18 History metoprolol succinate 50 mg PO QAM 06/23/18 06/23/18 History potassium chloride 10 meq PO TID 06/23/18 06/23/18 History ranitidine HCl 300 mg PO HS 06/23/18 06/23/18 History spironolactone 12.5 tab PO QAM 06/23/18 06/23/18 History tizanidine 4 mg PO UD PRN 06/23/18 06/23/18 History Past Med/Surg History Medical History Acid reflux Anxiety Gout History of breast cancer S/P CHEMO (LAST CHEMO 2015) History of bronchitis INHALER PRN; NO RECENT ISSUES History of kidney stones History of lung cancer S/P RUL WEDGE RESECTION History of skin cancer History of uterine cancer Hypertension Kidney disease STAGE III Obesity Osteoporosis Prediabetes Vertigo RARE Surgical History History of colonoscopy History of hysterectomy History of left mastectomy History of lung surgery RIGHT LUNG NODULE EXCISION/PARTIAL LUNG RESECTION History of surgery A-PORT (RIGHT) PLACED 2/2 CHEMO History of tonsillectomy and adenoidectomy History of total right knee replacement 05/19/17= SAB X 1 ATTEMPT + PNB AT [facility] Family History Mother History of breast cancer History of ovarian cancer Grandmother History of colon cancer Social History Preferred Language: Kazakh Communication Ability: Effective 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: No Beliefs That Will Affect Care: None Current Living Situation: Spouse Other Information That Helps Us Care for You: No Feels Safe at Home: Yes Smoking Status: Never smoker Hx Alcohol Use: Yes Hx Substance Use: No Review of Systems All systems reviewed & are unremarkable except as noted in HPI & below Physical Exam Constitutional: WD/WN, vitals as above Eyes: PERRL, conjunctivae normal, anicteric sclerae ENMT: external ear and nose normal, oropharynx normal Neck: trachea midline, no thyromegaly Respiratory: normal respiratory effort Cardiovascular: RRR, no murmur, no edema Gastrointestinal (Abdomen): normal bowel sounds, soft, nontender, no hepatosplenomegaly Musculoskeletal: Physical examination of the right shoulder reveals decreased range of motion and significant weakness. There is tenderness palpation along the anterior glenohumeral joint line. The right upper extremity is neurovascularly intact. Psychiatric: A+Ox3, euthymic affect Results & Data Diagnostic Findings Radiographs of the right shoulder show some signs of osteoarthritis with blunting of the greater tuberosity and some superior migration of the humeral head on the glenoid.
[~2018-07-06 09:57] MED LIST changes: -AMLO-114 PO; -ATV/1 PO; -BUPIVACAINE 0.25% 30 ML VIAL ONE; -BUPIVACAINE 0.5 % 5 MG/1 ML PF 10ML VIAL ONE; -BUPIVACAINE LIPOSOME 266 MG, BUPIVACAINE/EPINEPHRINE INJ 50 ML, SODIUM CHLORIDE 0.9% PF... INFIL SCH; +CEFAZOLIN 2000MG 2,000 MG/15 ML SYR IV SCH; -CEFAZOLIN 2000MG IV PUSH 10 ML IV SCH; -CHECK SCOPOLAMINE PATCH PLACEMENT SCH; -CHOL20009 PO; -COLC0.6T54 PO; -CYCL10TA6 PO; -FLUT0.15 NAE; -GABAPENTIN 300 MG CAP PO SCH; +GABAPENTIN 300 MG PO SCH; -LACTATED RINGER'S 1000ML 1,000 ML IV SCH; -LACTATED RINGER'S 1000ML 500 ML IV SCH; -LACTATED RINGER'S 1000ML IV SCH; -LISI-725 PO; -LORA10TA6 PO; +LR 15ML/HR IV SCH; -MAGNTAB17 PO; -METO-217 PO; -METOCLOPRAMIDE HCL 10 MG TAB PO SCH; -POTA1CAP53 PO; -RANI300T PO; +ROPIVACAINE 0.5% 5 MG/ML 30 ML VIAL ONE; +ROPIVACAINE 0.5% HCL/PF 150 MG, BUPIVACAINE 0.5% MPF 30 ML, EPINEPHrine 30MG/30ML (OR U... INFIL SCH; -SCOPOLAMINE 1.5 MG TDSY TD SCH; +TRANEXAMIC ACID 1,000 MG **IV Intra-op IV SCH; +TRANEXAMIC ACID 1,000 MG **IV Pre-op IV SCH; -TRANEXAMIC ACID INJ 1,000 MG in SYRINGE 0 ML IV SCH; -VNTHFA/IN INH; +[UNRECOGNIZED DRUG - REMARK] SCH
--- NOTE | 2018-07-06 12:06 | History & Physical Bridge Note ---
Date of Service July 06, 2018 History & Physical Bridge Note I have examined the patient, reviewed the History & Physical and in the interval since the performance of the History & Physical I have noted the following changes of clinical significance: no changes noted
[2018-07-06] MEDS ORDERED: BACITRACIN INJ 50,000 UNIT VIAL ONE (13:40)
[2018-07-06] MEDS ORDERED: POVIDONE-IODINE OP SOLN 30 ML BTL ONE (13:40)
[2018-07-06] MEDS ORDERED: MIDAZOLAM HCL 1 MG/ML 2ML VIAL ONE (13:50)
[2018-07-06] MEDS ORDERED: fentaNYL citrate 100 MCG/2 ML VIAL ONE (13:51)
[2018-07-06] MEDS ORDERED: LIDOCAINE HCL 2% 2 ML VIAL/AMP(20MG/ML) INFIL ONE (13:52)
[2018-07-06] MEDS ORDERED: PROPOFOL IV EMULSION 10 MG/ML 20 ML VIAL IV ONE (13:52)
[2018-07-06] MEDS ORDERED: ROCURONIUM BROMIDE 10 MG/ML 5 ML VIAL ONE (13:52)
[2018-07-06] MEDS ORDERED: BUPIVACAINE 0.5 % 5 MG/1 ML PF 10ML VIAL ONE (14:21)
[2018-07-06] MEDS ORDERED: DEXAMETHASONE SOD INJ 4 MG/ML VIAL ONE (16:20)
[2018-07-06] MEDS ORDERED: ONDANSETRON INJ 2 MG/ML 2 ML VIAL ONE (16:20)
[2018-07-06] MEDS ORDERED: PHENYLEPHRINE 100MCG/ML 5ML SYR ONE ×2 (16:20→16:59)
[2018-07-06] MEDS ORDERED: ePHEDrine sulfate 50 MG/ML SYR ONE (16:59)
[2018-07-06] MEDS ORDERED: ONDANSETRON INJ 2 MG/ML 2 ML VIAL IV PRN ×2 (17:07→18:14)
[2018-07-06] MEDS ORDERED: fentaNYL citrate 100 MCG/2 ML VIAL IV PRN (17:07)
[2018-07-06] MEDS ORDERED: ePHEDrine sulfate 50 MG/ML AMP IV PRN (17:07)
[2018-07-06] MEDS ORDERED: ATROPINE SULFATE 0.1 MG/ML 10ML SYR IV PRN (17:07)
[2018-07-06] MEDS ORDERED: PHENYLEPHRINE 100MCG/ML 5ML SYR IV PRN (17:07)
--- NOTE | 2018-07-06 17:11 | Operative Report ---
Post Operative Report Pre & Post Diagnosis Operation Date: 07/06/18 12:30 Pre-Op Diagnosis: Right Shoulder Rotator Cuff Arthropathy Post-Op Diagnosis: Right Shoulder Rotator Cuff Arthropathy Procedure Operation Date: 07/06/18 12:30 Actual Procedures p Right Reverse Total Shoulder Arthroplasty(Right) - Avinash Givens DO Surgeon Avinash Givens DO Home Health Care Worker Avinash Mcnair PAC Estimated Blood Loss 200 Findings Consistent with Post-Op Diagnosis Specimens Right humeral head Complications none Disposition Disposition: Recovery Room Indications Dianne is a pleasant 77-year-old female who is been dealing with a several year history of right shoulder pain. She was diagnosed with a medium cuff tear many years ago. She chose to do conservative treatment. Unfortunately over the years her shoulder pain worsened. Repeat MRI showed massive retracted rotator cuff tear. After failing conservative treatment, she elected proceed with a reverse right shoulder arthroplasty. Description of Procedure Implants used: I used a [employer] Comprehensive reverse total shoulder arthroplasty system with a size 10 press fit mini humeral stem, a standard humeral tray and a +3 retentive humeral bearing, a 25 mm mini baseplate with a 6.5 mm central screw and superior and inferior locking screws, and a size 36 mm eccentric glenosphere. The patient arrived at [facility] for the above procedure. There were seen in the preoperative holding area and the operative extremity was identified and signed. They were given a preoperative antibiotic and an interscalene nerve block. They were taken back to the operating room, laid on table in supine position, and put under general anesthesia. They were then put into the beachchair position. The shoulder was then prepped and draped in sterile fashion. A timeout was done and the patient in the operative extremity was properly identified. A deltopectoral approach was used. Dissection was taken down through the fascia and the deltoid was retracted laterally and the conjoined tendon was retracted medially. The anterior shoulder was exposed. The long head of the biceps tendon was tenodesed to the upper border of the pectoralis major. The subscapularis was then released off the lesser tuberosity with a centimeter of cuff tissue remaining. The inferior capsule was released and the humeral head was dislocated. A canal finding reamer was sent down the center of the humeral canal. Sequential reaming up to a size 10 reamer was done. Off that reamer, a proximal humeral resection guide was placed. The proximal humerus was resected at 135 of inclination and 25 of retroversion. Osteophytes were then removed and the glenoid was exposed. Time was spent doing a complete capsular and labral release. The glenoid guide was then placed in the inferior aspect of the glenoid. A 3.2 mm Steinmann pin was then placed into the glenoid vault at 10 of inclination. The glenoid baseplate was then reamed. The final size 25 mm mini baseplate was then impacted in the place. A 6.5 mm central screw was then placed followed by superior and inferior locking screws. A 36 mm eccentric glenoid sphere was then impacted into place. Surrounding soft tissues were then injected with 100 cc an orthopedic pain control cocktail. The proximal humerus was then exposed. Sequential broaching of the humerus up to a size 10 broach was done. Off that broach a +3 retentive humeral tray was trialed. The shoulder was then reduced, brought through a full range of motion and felt to be stable. The shoulder was then dislocated and the broach was removed. The final size 10 mm mini press-fit humeral stem was then impacted into place. A +3 retentive humeral bearing was then snapped onto a standard humeral tray and the ring-lock mechanism was engaged. The humeral tray was then impacted onto the humeral stem. The shoulder was once again reduced, brought through a full range of motion and felt to be stable. The subscapularis was a repairable and not repaired during this procedure. A dilute betadyne lavage was then done for 3 minutes. The joint was then irrigated with normal saline solution. Hemostasis was obtained. The skin was then closed with 2-0 Vicryl, 3-0V lock suture, and rolanda. A soft dressing and a regular arm sling was placed. The patient was then extubated and transferred to a hospital bed. They were taken to the postanesthesia care unit in stable condition. They tolerated the procedure well. I attest to the content of the Intraoperative Record and any orders documented therein. Any exceptions are noted below.
--- NOTE | 2018-07-06 17:42 | XRay Report ---
RIGHT SHOULDER 3 VIEWS CLINICAL HISTORY: Postoperative examination. FINDINGS: 3 views of the right shoulder are compared to study dated 06/07/2018. The skeletal structures are osteopenic. A right shoulder arthroplasty is in near anatomic alignment. No acute fracture is id entified. Productive degenerative change is noted at the acromioclavicular joint. There are expected postoperative changes overlying the shoulder including skin clips, subcutaneous gas, and soft tissue swelling. Suture material projects over the right upper lung. A right-sided central venous infusion p ort is in place. IMPRESSION: Expected postoperative findings status post right shoulder arthroplasty. No acute fractur e is seen. Electronically signed by: Farhat Lynn M.D. 07/06/2018 5:40 PM
--- NOTE | 2018-07-06 17:53 | Anesthesiology Progress Note ---
Date of Service July 06, 2018 Anesthesia Post Procedure Vital Signs Vital Signs: Temp Pulse Pulse Resp BP BP Pulse Ox 07/06/18 17:36 86 20 125/91 100 07/06/18 17:35 83 21 100 07/06/18 17:31 89 19 183/90 H 98 07/06/18 17:30 89 16 99 07/06/18 17:26 95 H 23 99 07/06/18 17:25 36.4 C L 96 H 96 H 16 171/69 H 170/69 H 99 07/06/18 17:23 98 07/06/18 10:15 36.9 C 76 18 173/80 H 94 Pain Intensity Right Neck: Pain Intensity: 0 Notes Mental Status: alert / awake / arousable Patient Amnestic to Procedure: Yes Nausea / Vomiting: adequately controlled Pain: adequately controlled Airway Patency, RR, SpO2: stable & adequate BP & HR: stable & adequate Hydration State: stable & adequate Anesthetic Complications: no major complications apparent and Pt Satisfied with anesthetic care Notes: The patient is awake and comfortable. She is moving her arms and legs.
[2018-07-06] MEDS ORDERED: BISACODYL 10 MG SUPP PR PRN (18:14)
[2018-07-06] MEDS ORDERED: NALOXONE HCL 0.4 MG/1 ML VIAL/CARP IV PRN (18:14)
[2018-07-06] MEDS ORDERED: ALBUTEROL HFA 8 GM INHALER INH PRN (18:14)
[2018-07-06] MEDS ORDERED: MAGNESIUM HYDROXIDE SUSP 30 ML UDC PO PRN (18:14)
[2018-07-06] MEDS ORDERED: METOCLOPRAMIDE HCL INJ 5 MG/ML 2 ML VIAL IV PRN (18:14)
[2018-07-06] MEDS ORDERED: LORazepam 0.5 MG TAB PO PRN (18:14)
[2018-07-06] MEDS ORDERED: SENNA 8.6 MG TAB PO SCH (21:00)
[2018-07-06] MEDS: SODIUM CHLORIDE 0.9% 1000ML 1,000 ML IV SCH (21:17)
[2018-07-06] MEDS: KETOROLAC TROMETHAMINE 15 MG/ML VIAL IV SCH (21:18)
[2018-07-06] MEDS: MAGNESIUM CHLORIDE 64MG DELAYED REL TAB PO SCH (21:18)
[2018-07-06] MEDS: METOPROLOL SUCC 50MG EXT REL TAB PO SCH (21:18)
[2018-07-06] MEDS: POTASSIUM CHLORIDE 10 MEQ TABCR PO SCH (21:18)
[2018-07-06] MEDS: DOCUSATE SODIUM 100 MG CAP PO SCH (21:18)
[2018-07-06] MEDS: ACETAMINOPHEN 500 MG TAB PO SCH (21:19)
[2018-07-06] MEDS ORDERED: CEFAZOLIN 2000MG 2,000 MG/15 ML SYR IV SCH (23:00)
[2018-07-07] MEDS: KETOROLAC TROMETHAMINE 15 MG/ML VIAL IV SCH ×2 (03:30→08:47)
[2018-07-07] MEDS: SODIUM CHLORIDE 0.9% 1000ML 1,000 ML IV SCH (05:50)
[2018-07-07] MEDS: ACETAMINOPHEN 500 MG TAB PO SCH (05:51)
[2018-07-07] MEDS: HEPARIN 100 UNIT/ML 5ML FLUSH FLUSH PRN ×3 (05:51→10:36)
[2018-07-07 06:22] LABS: Basophils # (auto) 0.01 K/uL (0-0.2); Basophils % (auto) 0.1 %; Hematocrit (blood only) 37.8 % (37-47); Hemoglobin 12.6 g/dL (12.0-16.0); Immature Granulocytes # (auto) 0.05 K/uL (0.00-0.02); Immature Granulocytes % (auto) 0.3 %; Lymphocytes # (auto) 1.09 K/uL (1.2-3.4); Lymphocytes % (auto) 6.5 %; Mean Corpuscular Hgb Conc 33.3 g/dL (32-36); Mean Corpuscular Volume 92.4 fL (80-100); Mean Platelet Volume 10.5 fL (7.4-10.4); Monocytes # (auto) 1.02 K/uL (0.11-0.59); Monocytes % (auto) 6.1 %; Neutrophils # (auto) 14.67 K/uL (1.4-6.5); Platelet Count 201 K/uL (130-400); RDW Standard Deviation 47.2 fL (36.4-46.3); Red Blood Count 4.09 M/uL (4.2-5.4); White Blood Count 16.84 K/uL (4.8-10.8)
[2018-07-07 06:54] LABS: Calcium 7.9 mg/dl (8.5-10.1); Est GFR (African American) 64.5; Est GFR (Non-African American) 55.6; Potassium 3.9 mmol/L (3.5-5.1)
--- NOTE | 2018-07-07 06:56 | Orthopedic Progress Note ---
Date of Service July 07, 2018 Assessment & Plan (1) Rotator cuff arthropathy of right shoulder: Overall she is doing fairly well. She denies any pain in the shoulder. She will be seen by physical therapy today for range of motion exercises. She can be discharged home with physical therapy later this morning. She will follow-up with orthopedics in 2 weeks. Present on Admission?: Yes Subjective Dianne was seen and examined at bedside this morning. Overall she is doing very well. She does not have any pain in the right shoulder. She was able to get some sleep last night. She has no complaints. Physical Exam Vital Signs (Past 24 Hours): Last Vital Signs Temp 36.7 C 07/07/18 03:21 Pulse 106 H 07/07/18 03:21 Resp 16 07/07/18 03:21 BP 135/79 07/07/18 03:21 Pulse Ox 95 07/07/18 03:21 Musculoskeletal: On physical examination of the right shoulder, the dressing is clean and dry. Her radial, median, and ulnar nerves are all checked and intact at the wrist. Her axillary nerve is not checked yet. She has no pain in her shoulder. Results & Data Laboratory Results H & H 06/28/18 07/07/18 Range/Units 09:51 05:30 Hgb 13.6 12.6 (12.0-16.0) g/dL Hct 40.7 37.8 (37-47) % Coagulation 06/28/18 Range/Units 09:51 INR 1.0 (0.9-1.1) Diagnostic Findings Postoperative x-rays of the right shoulder show the prosthesis to be in anatomic alignment without any evidence of fracture, dislocation, or loosening.
--- NOTE | 2018-07-07 06:59 | Discharge Summary ---
Date of Service July 07, 2018 Admission HPI Per Admitting Provider Dianne is a pleasant 77-year-old female who is been dealing with chronic bilateral shoulder pain. MRI of her right shoulder in 2009 showed a medium- sized rotator cuff tear. It was repairable back then. She did not have surgery at that time. She is been treated with serial injections. Unfortunately her shoulder pain is gotten much worse. She has trouble doing activities away from her body and overhead. X-rays showed possible rotator cuff arthropathy so I sent her for an MRI. MRI then showed a massive chronic retracted rotator cuff tear. After failing conservative treatment, she is elected proceed with a reverse right shoulder arthroplasty. Specialty Data Orthopedic H & H 06/28/18 07/07/18 Range/Units 09:51 05:30 Hgb 13.6 12.6 (12.0-16.0) g/dL Hct 40.7 37.8 (37-47) % Coagulation 06/28/18 Range/Units 09:51 INR 1.0 (0.9-1.1) Discharge Data Consultations 07/06/18 18:14 Consult Case Management - Discharge Planning Routine Procedures Performed Operation Date: 07/06/18 12:30 Actual Procedures p Right Reverse Total Shoulder Arthroplasty(Right) - Avinash Givens, Hospital Course (1) Rotator cuff arthropathy of right shoulder: On July 06, 2018 Nabila rosas arrived at [facility] and underwent a right reverse shoulder arthroplasty without complication. She had a general anesthetic and a right interscalene nerve block. Postoperatively she was placed in a sling and discharged to general orthopedic floors. Her hospital course is uneventful. On postop day #1 her H&H was stable and her pain was well controlled. She was seen by physical therapy and able to do range of motion exercises. She was then discharged home. She did not want any pain medications upon discharge as she has multiple allergies. She will follow-up with orthopedics in 2 weeks. Discharge Instructions Home Medications Medication Instructions Recorded Confirmed albuterol sulfate 2 puff INHALATION QID PRN 06/23/18 06/23/18 alendronate [Fosamax] 1 tab PO WK 06/23/18 06/23/18 amlodipine 10 mg PO QAM 06/23/18 07/06/18 amoxicillin 4 cap PO UD PRN 06/23/18 07/06/18 atorvastatin 20 mg PO QAM 06/23/18 07/06/18 cholecalciferol (vitamin D3) 2,000 unit PO QAM 06/23/18 07/06/18 [Vitamin D3] colchicine 0.6 mg PO UD PRN 06/23/18 07/06/18 ibuprofen 2 tab PO UD PRN 06/23/18 07/06/18 lisinopril 20 mg PO QAM 06/23/18 07/06/18 loratadine 10 mg PO DAILY 06/23/18 07/06/18 lorazepam 0.5 mg PO UD PRN 06/23/18 07/06/18 magnesium chloride 64 mg PO BID 06/23/18 06/23/18 metoprolol succinate 50 mg PO QAM 06/23/18 07/06/18 potassium chloride 10 meq PO TID 06/23/18 07/06/18 ranitidine HCl 300 mg PO HS 06/23/18 06/23/18 spironolactone 12.5 tab PO QAM 06/23/18 06/23/18 tizanidine 4 mg PO UD PRN 06/23/18 07/06/18
--- NOTE | 2018-07-07 08:28 | Anesthesiology Progress Note ---
Date of Service July 07, 2018 Anesthesia Post Procedure Vital Signs Vital Signs: Temp Pulse Pulse Pulse Resp BP BP 07/07/18 07:13 36.6 C 82 18 146/80 H 07/07/18 03:21 36.7 C 106 H 16 135/79 07/06/18 22:57 36.7 C 105 H 16 160/80 H 07/06/18 21:15 36.6 C 101 H 16 145/82 H 07/06/18 20:10 98 H 16 07/06/18 19:15 88 16 07/06/18 18:43 82 16 07/06/18 18:15 36.3 C L 85 16 07/06/18 18:05 81 28 H 07/06/18 18:01 84 19 133/84 07/06/18 18:00 77 19 07/06/18 17:56 84 22 168/73 H 07/06/18 17:55 82 22 07/06/18 17:51 82 19 164/69 H 07/06/18 17:50 81 17 07/06/18 17:47 36.4 C L 87 21 07/06/18 17:46 83 18 180/63 H 07/06/18 17:45 86 18 07/06/18 17:41 85 19 172/66 H 07/06/18 17:40 84 20 07/06/18 17:37 87 18 07/06/18 17:36 86 20 125/91 07/06/18 17:35 83 21 07/06/18 17:31 89 19 183/90 H 07/06/18 17:30 89 16 07/06/18 17:26 95 H 23 07/06/18 17:25 36.4 C L 96 H 96 H 16 171/69 H 07/06/18 17:23 07/06/18 10:15 36.9 C 76 18 BP BP Pulse Ox 07/07/18 07:13 93 07/07/18 03:21 95 07/06/18 22:57 90 07/06/18 21:15 95 07/06/18 20:10 176/73 H 95 07/06/18 19:15 197/61 H 97 07/06/18 18:43 165/91 H 100 07/06/18 18:15 173/72 H 99 07/06/18 18:05 98 07/06/18 18:01 100 07/06/18 18:00 100 07/06/18 17:56 99 07/06/18 17:55 100 07/06/18 17:51 100 07/06/18 17:50 100 07/06/18 17:47 164/69 H 99 07/06/18 17:46 100 07/06/18 17:45 100 07/06/18 17:41 100 07/06/18 17:40 100 07/06/18 17:37 100 07/06/18 17:36 100 07/06/18 17:35 100 07/06/18 17:31 98 07/06/18 17:30 99 07/06/18 17:26 99 07/06/18 17:25 170/69 H 99 07/06/18 17:23 98 07/06/18 10:15 173/80 H 94 Pain Intensity Right Neck: Pain Intensity: 0 Notes Mental Status: alert / awake / arousable and participated in evaluation Patient Amnestic to Procedure: Yes Nausea / Vomiting: adequately controlled Pain: adequately controlled Airway Patency, RR, SpO2: stable & adequate BP & HR: stable & adequate Hydration State: stable & adequate Anesthetic Complications: no major complications apparent and Pt Satisfied with anesthetic care
[2018-07-07] MEDS: DOCUSATE SODIUM 100 MG CAP PO SCH (08:48)
[2018-07-07] MEDS: METOPROLOL SUCC 50MG EXT REL TAB PO SCH (08:48)
[2018-07-07] MEDS: MAGNESIUM CHLORIDE 64MG DELAYED REL TAB PO SCH (08:49)
[2018-07-07] MEDS: POTASSIUM CHLORIDE 10 MEQ TABCR PO SCH (08:49)
[2018-07-07] MEDS ORDERED: SPIRONOLACTONE 25 MG TAB PO SCH (09:00)
[2018-07-07] MEDS ORDERED: AMLODIPINE BESYLATE 5 MG TAB PO SCH (09:00)
[2018-07-07] MEDS ORDERED: CHOLECALCIFEROL 1,000 UNITS TAB PO SCH (09:00)
[2018-07-07] MEDS ORDERED: ATORVASTATIN 20 MG TAB PO SCH (09:00)
[2018-07-07] MEDS ORDERED: LISINOPRIL 20 MG TAB PO SCH (09:00)
[2018-07-07] MEDS ORDERED: MULTIVITAMIN TAB PO SCH (09:00)
[2018-07-07] MEDS ORDERED: LORATADINE 10 MG TAB PO SCH (09:00)
== END 2018-07-07 13:36 | disposition home or self-care (01) | DRG 483 ==
LOC: ASU 09:57 → 3E 17:20

== ENCOUNTER 2019-12-19 19:05 | Inpatient (IN) ==
--- NOTE | 2019-12-19 19:15 | Emergency Department Note ---
Impression & Plan Acute leg pain, Difficulty walking ED Provider Note NAME: MELANIE AVILA AGE: 79 SEX: F : 1940 ARRIVES VIA: Walk-In INFORMANT: Patient, ED PROVIDER(S): Live Pham MD Chief Complaint: Leg pain, difficulty ambulating HPI: Patient does present with concern for leg pain and difficulty with ambulation. Patient states that this is been ongoing but is gotten progressively worse to where she is unable to get up and about at home. Patient states that she has tried at home medications including Tylenol which mildly improve her discomfort. The patient denies any recent trauma. Patient denies any trauma or heavy lifting twisting or turning as a precipitating cause when this first started several months ago. The patient states that because of her decreased mobility she has also not been able to make her PT appointments. Patient describes the pain as achy and constant. It is worse with movement and associated with decreased mobility. Rest may improve it slightly but it worsens with activity. Patient does have a history of lung cancer he does receive by mouth chemotherapy does see Dr. Linton with oncology. The patient states she has no prior history of DVT or PE and is not on blood thinning medications. Patient states she may have some very mild right-sided leg swelling but has a prior history of a total knee arthroplasty and that is unchanged from prior. ROS: See HPI for pertinent positives and negatives. A total of 10 systems were reviewed and otherwise negative. Past medical history: See below Surgical history: See below Social history: See below Physical Exam: GENERAL: Wearing glasses and a mask. NAD, non-toxic. EYE EXAM: Normal conjunctiva. PERRL, no anisocoria and EOM's grossly intact w/o pain. NECK: Supple, no nuchal rigidity, no adenopathy, non-tender. No signs of meningismus. Chest: Port in left chest LUNGS: Clear to auscultation. Normal chest wall mechanics. HEART: NSR, no MRG. ABDOMEN: Abdomen soft, non-tender, normo-active bowel sounds, no masses, no rebound or guarding. BACK: Mild midline low back and left-sided paraspinal TTP without overlying skin changes or bruising. SKIN: No rashes and no bruising. UPPER EXTREMITIES: Upper extremities are grossly normal. LOWER EXTREMITIES: Grossly normal, no edema. Slight decreased range of motion at the left hip but without obvious deformity or leg length discrepancy. Mild swelling to the right knee with a well-healed incisional scar. Negative Homans sign bilaterally. NEURO EXAM: A&O x3, cranial nerves II-XII grossly intact, normal speech, moves all 4 extremities on command w/o issue. Differential diagnoses: DVT, musculoskeletal, infection, joint effusion, trauma, lymphedema, idiopathic, CHF, as well as other pathologies. Fracture, subluxation, dislocation, contusion, ligamentous injury, neurovascular, compartment syndrome, rhabdomyolysis, as well as other pathologies. Course: Patient was seen and evaluated the bedside. Full history physical exam was performed. Imaging Studies: Radiology results as stated below per my review in the radiologist's interpretation: XR lumbar spine 2-3V HISTORY: 79 years-old Female pain LBP acute low back with left hip pain COMPARISON: Pelvis radiograph of same day, CT abdomen and pelvis 08/26/2015 TECHNIQUE: 3 views of the lumbar spine FINDINGS: 5 nonrib-bearing lumbar type vertebral segments. 7 mm anterolisthesis L5 on S1 has progressed from comparison. Severe multilevel facet arthrosis with mild disc space narrowing and moderate spondylitic spurring. Surgical clips project in the left hemipelvis. Multiple pelvic phleboliths. Bilateral nephrolithiasis. IMPRESSION: 1. No acute fracture. 2. Grade 1 anterolisthesis L5 on S1 has progressed from comparison and is likely secondary to long-standing severe facet arthrosis 3. Bilateral nephrolithiasis. ACT 112: Negative or not required by law. The above report was generated using voice recognition software. It may contain grammatical, syntax or spelling errors. Electronically signed by: Chidi Bagley M.D. 12/20/2019 6:49 AM Dictated: 12/20/19 0647 Transcribed: 12/20/19 0647 XR femur LT 2V routine, XR pelvis 1-2V routine HISTORY: 79 years-old Female PAIN acute pelvis and left femur pain COMPARISON: CT abdomen and pelvis 08/26/2015 TECHNIQUE: 2 views of the left femur with AP view of the pelvis FINDINGS: FEMUR: Chondrocalcinosis of the knee. Moderate medial patellofemoral with mild lateral compartment osteoarthritis. Mild to moderate left hip osteoarthritis. No acute fracture, dislocation or avascular necrosis. There is mild cortical thickening involving the lateral cortex of the mid diaphyseal femur with a peripherally sclerotic linear lucency. Arterial calcifications. No large joint effusion. PELVIS: Mild to moderate osteoarthritis of the hips with chondrocalcinosis. Surgical clips project over the left hemipelvis. No acute fracture or dislocation. IMPRESSION: 1. No acute fracture or dislocation. 2. Healing stress fracture involves the lateral cortex of the mid left femoral diaphysis. ACT 112: Negative or not required by law. The above report was generated using voice recognition software. It may contain grammatical, syntax or spelling errors. Electronically signed by: Chidi Bagley M.D. 12/20/2019 6:44 AM Dictated: 1940 Transcribed: 12/20/19639 ULTRASOUND LEFT LOWER EXTREMITY VENOUS CLINICAL HISTORY: Left leg pain. COMPARISON STUDY: Bilateral lower extremity venous ultrasound dated 12/31/2016. TECHNIQUE: Real-time, grayscale, and color Doppler sonography of the deep veins of the left lower extremity was performed from the inguinal crease to the calf. Compression and augmentation were utilized. FINDINGS: There is no sonographic evidence of deep venous thrombosis identified in the left lower extremity. The common femoral, superficial femoral, and popliteal veins are patent and normally compressible. The greater saphenous vein and the profunda femoris vein at the junction with the common femoral vein are clear. The visualized calf veins are patent. IMPRESSION: There is no sonographic evidence of deep venous thrombosis identified in the left lower extremity. ACT 112: Negative or not required by law. Electronically signed by: Farhat Lynn M.D. 12/20/2019 7:04 AM Dictated: 12/20/19 0704 Transcribed: 12/20/19 0704 Cardiac monitoring: An order was placed for continuous cardiac monitoring. The monitor shows a rate of 73 with sinus rhythm. MDM: Patient was seen due to concern for left leg pain. Blood work is obtained and a DVT ultrasound along with hip and back x-ray were obtained given the patient's cancer history. X-rays do not show acute fracture dislocation. I did discuss the findings with the patient. Given that the patient has had some persistent discomfort and ambulatory dysfunction do not believe the patient would be able to tolerate going home as the patient has not even been able to get up and out of bed and around the house. Furthermore the patient is not been able to make it to her PT appointments. I did speak with Dr. Garrett and the patient was admitted to the medicine service. Past Med/Surg History Medical History Acid reflux Anxiety Gout History of breast cancer S/P CHEMO (LAST CHEMO 2015) History of bronchitis INHALER PRN; NO RECENT ISSUES History of kidney stones History of lung cancer S/P RUL WEDGE RESECTION History of skin cancer History of uterine cancer Hypertension Kidney disease STAGE III Obesity Osteoporosis Prediabetes Vertigo RARE Surgical History History of colonoscopy History of hysterectomy History of left mastectomy History of lung surgery RIGHT LUNG NODULE EXCISION/PARTIAL LUNG RESECTION History of surgery A-PORT (RIGHT) PLACED 2/2 CHEMO History of tonsillectomy and adenoidectomy History of total right knee replacement 05/19/17= SAB X 1 ATTEMPT + PNB AT [facility] Family History Mother History of breast cancer History of ovarian cancer Grandmother History of colon cancer Social History Smoking Status: Never smoker Second Hand Exposure: Yes (); Hx Alcohol Use: No Hx Substance Use: No Preferred Language: Tongan Communication Ability: Effective Valve Fitter Required: No Beliefs That Will Affect Care: None marital status: Current Living Situation: Spouse Feels Safe at Home: Yes Allergies Allergies Allergy/AdvReac Type Severity Reaction Status Date / Time castor oil Allergy Unknown ANAPHYLACTI Verified 10/12/19 09:42 C Cipro Allergy Unknown HIVES Verified 05/19/17 06:57 ciprofloxacin Allergy Unknown HIVES Verified 10/12/19 09:42 paclitaxel Allergy Unknown ANAPHYLACTI Verified 10/12/19 09:42 C codeine AdvReac Unknown GI SYMPTOMS Verified 10/12/19 09:42 cyproheptadine AdvReac Unknown lethargy Verified 10/12/19 09:42 doxepin AdvReac Unknown lethargy Verified 10/12/19 09:42 gabapentin AdvReac Unknown GI SYMPTOMS Verified 10/12/19 09:42 hydrocodone AdvReac Unknown GI SYMPTOMS Verified 10/12/19 09:42 meloxicam AdvReac Unknown dizzy,heada Verified 10/12/19 09:42 michael,nausea oxycodone AdvReac Unknown GI SYMPTOMS Verified 10/12/19 09:42 prednisone AdvReac Unknown ELEVATED Verified 10/12/19 09:42 GLUCOSE tramadol AdvReac Unknown GI SYMPTOMS Verified 10/12/19 09:42 Ethanol Allergy Unknown ANAPHYLACTIC-- Uncoded 10/12/19 09:42 PATIENT DENIES* Home Meds Home Medications Medication Instructions Recorded Confirmed albuterol sulfate 2 puff INHALATION QID PRN 06/23/18 12/19/19 alendronate [Fosamax] 1 tab PO WK 06/23/18 12/19/19 amlodipine 10 mg PO QAM 06/23/18 12/19/19 amoxicillin 4 cap PO UD PRN 06/23/18 12/19/19 atorvastatin 20 mg PO QAM 06/23/18 12/19/19 cholecalciferol (vitamin D3) 2,000 unit PO QAM 06/23/18 12/19/19 [Vitamin D3] colchicine 0.6 mg PO BID PRN 06/23/18 12/19/19 ibuprofen 600 tab PO Q8H PRN 06/23/18 12/19/19 lisinopril 20 mg PO QAM 06/23/18 12/19/19 loratadine 10 mg PO DAILY 06/23/18 12/19/19 lorazepam 0.5 mg PO UD PRN 06/23/18 12/19/19 magnesium chloride 64 mg PO BID 06/23/18 12/19/19 metoprolol succinate 50 mg PO QAM 06/23/18 12/19/19 potassium chloride 10 meq PO TID 06/23/18 12/19/19 spironolactone 12.5 tab PO 5XWK 06/23/18 12/19/19 tizanidine 4 mg PO TID PRN 06/23/18 12/19/19 fluticasone propionate [Flonase] 2 spray INTRANASAL DAILY PRN 12/19/19 12/19/19 nystatin 1 applic TOPICAL TID 12/19/19 12/19/19 ondansetron HCl 8 mg PO Q8H PRN 12/19/19 12/19/19 osimertinib [Tagrisso] 80 mg PO DAILY 12/19/19 12/19/19 prochlorperazine maleate 10 mg PO Q6H PRN 12/19/19 12/19/19 Previous Rx's Medication Instructions Recorded meloxicam 15 mg tablet 15 mg PO DAILY #30 tab 07/13/19 Results & Data (ED) Vital Signs Vital Signs - 24 hr 12/19/19 19:07 Temperature 36.7 C Temperature Source Oral Pulse Rate 73 Respiratory Rate 16 Respiratory Effort / Characteristics Non-Labored Spontaneous Respiratory Depth Normal Respiratory Pattern Regular Blood Pressure 151/79 H Blood Pressure Mean 103 Blood Pressure Position Sitting Pulse Oximetry 96 Oxygen Delivery Method Room Air Sepsis Recent Fever Within 48 Hours No Sepsis New/Unexplained Change in Mental Status No Sepsis Action Taken by Nursing No Action Required Home Medications Current Medication List: was personally reviewed by me Laboratory Data Attestation: I reviewed the patient's lab results. Result diagrams: 12/20/19 06:20 12/20/19 06:20 Lab Results 12/19/19 12/19/19 12/19/19 Range/Units 19:53 19:53 19:53 WBC 7.32 (4.8-10.8) K/uL RBC 4.37 (4.2-5.4) M/uL Hgb 13.5 (12.0-16.0) g/dL Hct 37.0 (37-47) % MCV 84.7 (80-100) fL MCH 30.9 (25-34) pg MCHC 36.5 H (32-36) g/dL RDW Std Deviation 45.0 (36.4-46.3) fL RDW Coeff of Thien 14.5 (11.5-14.5) % Plt Count 180 (130-400) K/uL MPV 10.2 (7.4-10.4) fL Immature Gran % (Auto) 0.1 % Neut % (Auto) 66.2 % Lymph % (Auto) 20.5 % Mellette % (Auto) 9.4 % Eos % (Auto) 3.7 % Baso % (Auto) 0.1 % Neut # (Auto) 4.84 (1.4-6.5) K/uL Lymph # (Auto) 1.50 (1.2-3.4) K/uL Mellette # (Auto) 0.69 H (0.11-0.59) K/uL Eos # (Auto) 0.27 (0-0.5) K/uL Baso # (Auto) 0.01 (0-0.2) K/uL Immature Gran # (Auto) 0.01 (0.00-0.02) K/uL Sodium 143 (136-145) mmol/L Potassium 3.1 L (3.5-5.1) mmol/L Chloride 110 H (98-107) mmol/L Carbon Dioxide 26 (21-32) mmol/L Anion Gap 7.0 (3-11) BUN 22 H (7-18) mg/dl Creatinine 1.25 H (0.6-1.2) mg/dl Est Cr Clr Drug Dosing Not Reportable Est GFR ( Amer) 47.4 Est GFR (Non-Af Amer) 40.9 BUN/Creatinine Ratio 17.9 (10-20) Glucose 107 H (70-99) mg/dl Calcium 9.0 (8.5-10.1) mg/dl Magnesium 1.6 L Cancelled (1.8-2.4) mg/dl Total Creatine Kinase 78 (26-192) U/L TSH 2.410 Cancelled (0.300-4.500) uIu/ml Administered Medications Acetaminophen (Acetaminophen 500 Mg Tab) 1,000 mg PO Q6H PRN PRN Reason: Pain Stop: 01/19/20 09:48 Last Admin: 12/20/19 23:50 Dose: 1,000 mg Documented by: [id number] Admin: 12/20/19 10:11 Dose: 1,000 mg Documented by: [id number] Amlodipine Besylate (Amlodipine Besylate 5 Mg Tab) 10 mg PO [facility] Stop: 01/19/20 08:59 Last Admin: 12/20/19 08:55 Dose: 10 mg Documented by: [id number] Atorvastatin Calcium (Atorvastatin 20 Mg Tab) [facility] [place] Stop: 01/19/20 08:59 Last Admin: 12/20/19 08:55 Dose: 20 mg Documented by: [id number] Insulin Aspart (Insulin Aspart 100 Units/Ml 3 Ml Pen) 0 units SC [facility] Stop: 01/19/20 00:38 Last Admin: 12/20/19 21:40 Dose: Not Given Documented by: [id number] Cosigned by: [id number] Admin: 12/20/19 17:24 Dose: Not Given Documented by: [id number] Cosigned by: [id number] Admin: 12/20/19 13:29 Dose: Not Given Documented by: [id number] Cosigned by: [id number] Admin: 12/20/19 08:57 Dose: Not Given Documented by: [id number] Cosigned by: [id number] Admin: 12/20/19 01:07 Dose: Not Given Documented by: [id number] Cosigned by: [id number] Lidocaine (Lidocaine 5% 1 Patch) 1 patch TD DAILY@2000 [facility] Stop: 01/19/20 19:59 Last Admin: 12/20/19 19:28 Dose: 1 patch Documented by: [id number] Loratadine (Loratadine 10 Mg Tab) 10 mg PO DAILY [facility] Stop: 01/19/20 08:59 Last Admin: 12/20/19 08:55 Dose: 10 mg Documented by: [id number] Metoprolol Succinate (Metoprolol Succ 50mg Ext Rel Tab) 50 mg PO QAM [facility] Stop: 01/19/20 08:59 Last Admin: 12/20/19 08:55 Dose: 50 mg Documented by: [id number] Miscellaneous (Remove Lidoderm Patch) 1 ea N/A DAILY@0800 [facility] [place] Stop: 01/19/20 07:59 Last Admin: 12/20/19 08:56 Dose: 1 ea Documented by: [id number] Osimertinib (Osimertinib Mesylate 80 Mg) 1 ea PO DAILY [facility] Stop: 01/19/20 15:59 Last Admin: 12/20/19 16:20 Dose: 1 ea Documented by: [id number] Cosigned by: [id number] Discontinued Medications Acetaminophen (Acetaminophen 325 Mg Tab) 650 mg PO NOW STA Stop: 12/19/19 19:26 Last Admin: 12/19/19 20:17 Dose: 650 mg Documented by: [id number] Clonidine HCl (Clonidine Hcl 0.1 Mg Tab) 0.1 mg PO NOW ONE Stop: 12/19/19 23:15 Last Admin: 12/19/19 23:25 Dose: 0.1 mg Documented by: [id number] Gadobutrol (Gadobutrol 65ml Vial) 8.4 ml IV ONCE ONE Stop: 12/20/19 12:27 Last Admin: 12/20/19 12:26 Dose: 8.4 ml Documented by: [id number] Heparin Sodium (Porcine) (Heparin Sod 5,000 Unit/0.5 Ml Vial) 5,000 units SQ Q8 [facility] Stop: 01/19/20 05:59 Last Admin: 12/20/19 13:42 Dose: 5,000 units Documented by: [id number] Cosigned by: [id number] Admin: 12/20/19 05:57 Dose: 5,000 units Documented by: [id number] Cosigned by: [id number] Sodium Chloride (Nss) 500 mls @ 999 mls/hr IV .Q31M [facility] Stop: 12/19/19 20:00 Last Infusion: 12/19/19 21:09 Dose: 0 mls/hr Documented by: [id number] Admin: 12/19/19 20:17 Dose: 999 mls/hr Documented by: [id number] Potassium Chloride 40 meq/ (Sodium Chloride) 1,020 mls @ 60 mls/hr IV .Q17H ONE Stop: 12/20/19 17:38 Last Infusion: 12/20/19 18:27 Dose: 0 mls/hr Documented by: [id number] Admin: 12/20/19 01:19 Dose: 60 mls/hr Documented by: [id number] Magnesium Sulfate/Dextrose (Magnesium Sulfate / D5w) 1 gm in 100 mls @ 50 mls/hr IV Q2H [facility] Stop: 12/20/19 04:38 Last Infusion: 12/20/19 05:27 Dose: 0 mls/hr Documented by: [id number] Admin: 12/20/19 03:23 Dose: 50 mls/hr Documented by: [id number] Infusion: 12/20/19 03:22 Dose: 50 mls/hr Documented by: [id number] Admin: 12/20/19 01:22 Dose: 50 mls/hr Documented by: [id number] Sodium Chloride (Nss 1000ml) 500 mls @ 999 mls/hr IV .Q31M ONE Stop: 12/20/19 09:48 Last Infusion: 12/20/19 11:15 Dose: 0 mls/hr Documented by: [id number] Admin: 12/20/19 10:44 Dose: 999 mls/hr Documented by: [id number] Lidocaine (Lidocaine 5% 1 Patch) 1 patch TD NOW STA Stop: 12/19/19 19:26 Last Admin: 12/19/19 20:17 Dose: 1 patch Documented by: [id number] Lorazepam (Lorazepam 0.5 Mg Tab) 0.5 mg PO NOW STA Stop: 12/20/19 10:56 Last Admin: 12/20/19 11:33 Dose: 0.5 mg Documented by: [id number] Miscellaneous (Remove Lidoderm Patch) 1 ea N/A DAILY@2100 [facility] Stop: 01/18/20 20:59 Last Admin: 12/20/19 01:15 Dose: 1 ea Documented by: [id number] Miscellaneous (Tagrisso~Order Awaiting Action) 1 ea N/A QS [facility] Stop: 01/19/20 07:59 Last Admin: 12/20/19 08:56 Dose: Not Given Documented by: [id number] Potassium Chloride (Potassium Chloride 20 Meq Tabcr) 40 meq PO NOW STA Stop: 12/19/19 22:15 Last Admin: 12/19/19 22:32 Dose: 40 meq Documented by: [id number] Discharge Plan Visit Data Chief Complaint: Leg Injury/Pain Stated Complaint: left leg/ hip pain ED Provider: Live Pham Discharge Problem: Acute leg pain, Difficulty walking Patient Disposition: Admitted As Inpatient Discharge Instructions Interventions: ED Discharge Assessment Last Done: 12/19/19 23:38 Discharge Problem: Acute leg pain Qualifiers: Laterality: left Qualified Code(s): M79.605 - Pain in left leg
[2019-12-19] MEDS ORDERED: LIDOCAINE 5% 1 PATCH TD STA (19:25)
[2019-12-19] MEDS ORDERED: ACETAMINOPHEN 325 MG TAB PO STA (19:25)
[2019-12-19] MEDS ORDERED: SODIUM CHLORIDE 0.9% 500 ML IV SCH (19:30)
[2019-12-19 20:14] LABS: Basophils # (auto) 0.01 K/uL (0-0.2); Basophils % (auto) 0.1 %; Eosinophils # (auto) 0.27 K/uL (0-0.5); Eosinophils % (auto) 3.7 %; Hemoglobin 13.5 g/dL (12.0-16.0); Immature Granulocytes # (auto) 0.01 K/uL (0.00-0.02); Immature Granulocytes % (auto) 0.1 %; Lymphocytes % (auto) 20.5 %; Mean Corpuscular Hemoglobin 30.9 pg (25-34); Mean Corpuscular Hgb Conc 36.5 g/dL (32-36); Mean Corpuscular Volume 84.7 fL (80-100); Mean Platelet Volume 10.2 fL (7.4-10.4); Monocytes # (auto) 0.69 K/uL (0.11-0.59); Monocytes % (auto) 9.4 %; Neutrophils # (auto) 4.84 K/uL (1.4-6.5); Neutrophils % (auto) 66.2 %; Platelet Count 180 K/uL (130-400); RDW Coefficient of Variation 14.5 % (11.5-14.5); Red Blood Count 4.37 M/uL (4.2-5.4); White Blood Count 7.32 K/uL (4.8-10.8)
[2019-12-19 20:30] LABS: BUN Creatinine Ratio 17.9 (10-20); Blood Urea Nitrogen 22 mg/dl (7-18); Carbon Dioxide 26 mmol/L (21-32); Chloride 110 mmol/L (98-107); Est GFR (African American) 47.4; Est GFR (Non-African American) 40.9; Glucose 107 mg/dl (70-99); Potassium 3.1 mmol/L (3.5-5.1); Sodium 143 mmol/L (136-145)
[2019-12-19] MEDS ORDERED: POTASSIUM CHLORIDE 20 MEQ TABCR PO STA (22:14)
[2019-12-19 23:09] LABS: Magnesium 1.6 mg/dl (1.8-2.4)
[2019-12-19] MEDS ORDERED: cloNIDine HCL 0.1 MG TAB PO ONE (23:14)
[2019-12-19 23:34] LABS: Creatine Kinase 78 U/L (26-192)
--- NOTE | 2019-12-20 00:30 | History & Physical Report ---
Date of Service December 19, 2019 Assessment & Plan (1) Asymptomatic hypertensive urgency: Secondary to left upper leg pain, NSAID intake Etiology to be determined ARF ? New baseline, serum creatinine noted to be 1.3 last month on blood draw from normal baseline in the past Multifactorial Diarrheal illness possibly from chemotherapy rule out C. difficile NSAID Rx, lisinopril contributory paroxysmal AFib, patient NSR hx BRCA gene mutation recurrent NSCLC status post surgery ongoing Osimertinib tx hx breast cancer, L sp surgery and chemotherapy uterine cancer sp surgery/chemotx DM2 diet controlled, well-controlled as of recent outpatient hemoglobin A1c of 5.07 November 2019 Hypokalemia secondary to diarrheal illness Decubiti wounds, no gross infection as per RN OBS Medical telemetry given uncontrolled BP Clonidine 1 dose now Analgesia Continue home BP meds, may need dose titration Follow official hip/pelvic x-ray results, add plain x-ray of left femur Orthopedics consult Re: Left upper leg pain Baseline UA, monitor creatinine response to IVF Hold lisinopril until creatinine back to baseline Patient counseled about adverse effects of NSAIDs on blood pressure and kidney function. Stool C. difficile Replace electrolytes Wound care nurse consult Re: decubiti wounds ISS BG goal [id number] DVT prophylaxis. Heparin subcu Full code Text document was generated using [employer] voice recognition software. It may contain grammatical or spelling errors. Kindly contact undersigned for clarification of any documentation item in question. History of Present Illness Chief Complaint: Left upper leg pain Primary Care Provider: Hank Ivey DO History obtained from patient, family, and records. Medical history significant for hypertension, paroxysmal AFib, hx BRCA gene mutation, recurrent NSCLC status post surgery ongoing Osimertinib tx, breast cancer, L sp surgery and chemotherapy, uterine cancer sp surgery/chemotx, DM2 diet-controlled, depression. Last confinement May 2017 under orthopedic service for right total knee arthroplasty. Patient has had chronic left upper leg pain for a few months now. Possibly related to some twisting incident involving the right lower extremity as per patient. OTC NSAID intake at home about 5 daily. The last 2 weeks, patient noted worsening of achy left thigh pain especially with motion with some radiation to the back. No chest pain, no S OB, no fever, no chills. Patient also complaining of loose stools nonbloody without abdominal pain. Poor appetite. No recent antibiotic Rx. Patient brought by to the ER. Decubiti sores on patient's bottom noted by RN at the ER. MEDICAL HISTORY: As above. PET scan (skull base to mid thigh) November 2019: No abnormal uptake to suggest active neoplasm SURGERIES: She has had A-port placement, hysterectomy, tubal ligation, tonsillectomy, adenoidectomy, carpal tunnel surgery, knee surgery, urologic procedures, eye surgery, shoulder surgery, modified radical mastectomy left, thoracoscopy/lung surgery, cataract surgery. FAMILY HISTORY: There is a family history of breast cancer, colon cancer, dementia. PERSONAL AND SOCIAL HISTORY: Nonsmoker, no chronic intake of alcoholic beverages. 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 Allergies Allergy/AdvReac Type Severity Reaction Status Date / Time castor oil Allergy Unknown ANAPHYLACTI Verified 10/12/19 09:42 C Cipro Allergy Unknown HIVES Verified 05/19/17 06:57 ciprofloxacin Allergy Unknown HIVES Verified 10/12/19 09:42 paclitaxel Allergy Unknown ANAPHYLACTI Verified 10/12/19 09:42 C codeine AdvReac Unknown GI SYMPTOMS Verified 10/12/19 09:42 cyproheptadine AdvReac Unknown lethargy Verified 10/12/19 09:42 doxepin AdvReac Unknown lethargy Verified 10/12/19 09:42 gabapentin AdvReac Unknown GI SYMPTOMS Verified 10/12/19 09:42 hydrocodone AdvReac Unknown GI SYMPTOMS Verified 10/12/19 09:42 meloxicam AdvReac Unknown dizzy,heada Verified 10/12/19 09:42 michael,nausea oxycodone AdvReac Unknown GI SYMPTOMS Verified 10/12/19 09:42 prednisone AdvReac Unknown ELEVATED Verified 10/12/19 09:42 GLUCOSE tramadol AdvReac Unknown GI SYMPTOMS Verified 10/12/19 09:42 Ethanol Allergy Unknown ANAPHYLACTIC-- Uncoded 10/12/19 09:42 PATIENT DENIES* Home Medications Home Medications Medication Instructions Recorded Confirmed Type albuterol sulfate 2 puff INHALATION QID PRN 06/23/18 12/19/19 History alendronate [Fosamax] 1 tab PO WK 06/23/18 12/19/19 History amlodipine 10 mg PO QAM 06/23/18 12/19/19 History amoxicillin 4 cap PO UD PRN 06/23/18 12/19/19 History atorvastatin 20 mg PO QAM 06/23/18 12/19/19 History cholecalciferol (vitamin D3) 2,000 unit PO QAM 06/23/18 12/19/19 History [Vitamin D3] colchicine 0.6 mg PO BID PRN 06/23/18 12/19/19 History ibuprofen 600 tab PO Q8H PRN 06/23/18 12/19/19 History lisinopril 20 mg PO QAM 06/23/18 12/19/19 History loratadine 10 mg PO DAILY 06/23/18 12/19/19 History lorazepam 0.5 mg PO UD PRN 06/23/18 12/19/19 History magnesium chloride 64 mg PO BID 06/23/18 12/19/19 History metoprolol succinate 50 mg PO QAM 06/23/18 12/19/19 History potassium chloride 10 meq PO TID 06/23/18 12/19/19 History spironolactone 12.5 tab PO 5XWK 06/23/18 12/19/19 History tizanidine 4 mg PO TID PRN 06/23/18 12/19/19 History meloxicam 15 mg tablet 15 mg PO DAILY #30 tab 07/13/19 12/19/19 Rx fluticasone propionate [Flonase] 2 spray INTRANASAL DAILY PRN 12/19/19 12/19/19 History nystatin 1 applic TOPICAL TID 12/19/19 12/19/19 History ondansetron HCl 8 mg PO Q8H PRN 12/19/19 12/19/19 History osimertinib [Tagrisso] 80 mg PO DAILY 12/19/19 12/19/19 History prochlorperazine maleate 10 mg PO Q6H PRN 12/19/19 12/19/19 History Past Med/Surg History Medical History Acid reflux Anxiety Gout History of breast cancer S/P CHEMO (LAST CHEMO 2015) History of bronchitis INHALER PRN; NO RECENT ISSUES History of kidney stones History of lung cancer S/P RUL WEDGE RESECTION History of skin cancer History of uterine cancer Hypertension Kidney disease STAGE III Obesity Osteoporosis Prediabetes Vertigo RARE Surgical History History of colonoscopy History of hysterectomy History of left mastectomy History of lung surgery RIGHT LUNG NODULE EXCISION/PARTIAL LUNG RESECTION History of surgery A-PORT (RIGHT) PLACED 2/2 CHEMO History of tonsillectomy and adenoidectomy History of total right knee replacement 05/19/17= SAB X 1 ATTEMPT + PNB AT [facility] Family History Mother History of breast cancer History of ovarian cancer Grandmother History of colon cancer Social History Smoking Status: Never smoker Second Hand Exposure: Yes (); Hx Alcohol Use: No Hx Substance Use: No Preferred Language: Mozambican Communication Ability: Effective Pie Baker Required: No Beliefs That Will Affect Care: None marital status: Current Living Situation: Spouse Feels Safe at Home: Yes Review of Systems Review of Systems: As per HPI, all 10 systems reviewed, all other ROS negative Physical Exam Physical Exam: GENERAL: uncomfortable, slight chills, obese, no respiratory distress SKIN: Normal color, warm HEENT: Bespectacled, pink palpebral conjunctivae, no ptosis, dry buccal mucosa NECK : Supple, short neck, no tenderness CHEST : CTA, no tenderness HEART : RRR, no obvious murmurs ABDOMEN: Some distention, nontender BACK : Not examined EXTREMITIES : Minimal LE swelling, minimal L thigh tenderness, no other conspicuous deformities noted NEUROLOGIC : Coherent, no facial asymmetry, no other gross focality Results & Data Results & Data ([facility]) Vital Signs (Past 12 Hours) Vital Signs Temp Pulse Pulse Resp BP BP Pulse Ox 12/19/19 23:25 70 24 170/74 H 96 12/19/19 22:20 82 18 175/78 H 96 12/19/19 19:07 36.7 C 73 16 151/79 H 96 Laboratory Results Laboratory Results WBC 7.32 K/uL (4.8-10.8) 12/19/19 19:53 RBC 4.37 M/uL (4.2-5.4) 12/19/19 19:53 Hgb 13.5 g/dL (12.0-16.0) 12/19/19 19:53 Hct 37.0 % (37-47) 12/19/19 19:53 MCV 84.7 fL (80-100) 12/19/19 19:53 MCH 30.9 pg (25-34) 12/19/19 19:53 MCHC 36.5 g/dL (32-36) H 12/19/19 19:53 RDW Std Deviation 45.0 fL (36.4-46.3) 12/19/19 19:53 RDW Coeff of Thien 14.5 % (11.5-14.5) 12/19/19 19:53 Plt Count 180 K/uL (130-400) 12/19/19 19:53 MPV 10.2 fL (7.4-10.4) 12/19/19 19:53 Immature Gran % (Auto) 0.1 % 12/19/19 19:53 Neut % (Auto) 66.2 % 12/19/19 19:53 Lymph % (Auto) 20.5 % 12/19/19 19:53 [place] % (Auto) 9.4 % 12/19/19 19:53 Eos % (Auto) 3.7 % 12/19/19 19:53 Baso % (Auto) 0.1 % 12/19/19 19:53 Neut # (Auto) 4.84 K/uL (1.4-6.5) 12/19/19 19:53 Lymph # (Auto) 1.50 K/uL (1.2-3.4) 12/19/19 19:53 [place] # (Auto) 0.69 K/uL (0.11-0.59) H 12/19/19 19:53 Eos # (Auto) 0.27 K/uL (0-0.5) 12/19/19 19:53 Baso # (Auto) 0.01 K/uL (0-0.2) 12/19/19 19:53 Immature Gran # (Auto) 0.01 K/uL (0.00-0.02) 12/19/19 19:53 Sodium 143 mmol/L (136-145) 12/19/19 19:53 Potassium 3.1 mmol/L (3.5-5.1) L 12/19/19 19:53 Chloride 110 mmol/L (98-107) H 12/19/19 19:53 Carbon Dioxide 26 mmol/L (21-32) 12/19/19 19:53 Anion Gap 7.0 (3-11) 12/19/19 19:53 BUN 22 mg/dl (7-18) H 12/19/19 19:53 Creatinine 1.25 mg/dl (0.6-1.2) H 12/19/19 19:53 Est Cr Clr Drug Dosing Not Reportable 12/19/19 19:53 Est GFR ( Amer) 47.4 12/19/19 19:53 Est GFR (Non-Af Amer) 40.9 12/19/19 19:53 BUN/Creatinine Ratio 17.9 (10-20) 12/19/19 19:53 Glucose 107 mg/dl (70-99) H 12/19/19 19:53 Calcium 9.0 mg/dl (8.5-10.1) 12/19/19 19:53 Magnesium 1.6 mg/dl (1.8-2.4) L 12/19/19 19:53 Magnesium Cancelled 12/19/19 19:53 Total Creatine Kinase 78 U/L (26-192) 12/19/19 19:53 TSH 2.410 uIu/ml (0.300-4.500) 12/19/19 19:53 TSH Cancelled 12/19/19 19:53 Diagnostic Findings LLE venous Dopplers initial read : No DVT Hip/pelvis x-ray read pending LS XR read pending Chest x-ray as per my interpretation: Cardiomegaly, elevated right hemidiaphragm EKG as per my interpretation : Rate 65, NSR, LAD, LAFB, T wave abnormalities anteroseptal leads Code Status & VTE Plan VTE Prophylaxis Plan VTE Prophylaxis will be ordered: Yes
[2019-12-20] MEDS ORDERED: POTASSIUM CHLORIDE 40 MEQ in SODIUM CHLORIDE 0.45 % 1,000 ML IV ONE (00:39)
[2019-12-20] MEDS ORDERED: GLUCOSE 10 TABS/TUBE PO PRN (00:39)
[2019-12-20] MEDS ORDERED: HYDROmorphone HCL 2 MG TAB PO PRN (00:39)
[2019-12-20] MEDS ORDERED: CARBOHYDRATES FOR HYPOGLYCEMIA PO PRN (00:39)
[2019-12-20] MEDS ORDERED: HYDROmorphone INJ 0.5 MG/0.5 ML SYR IV PRN (00:39)
[2019-12-20] MEDS ORDERED: GLUCAGON FOR INJ 1 MG VIAL SQ PRN (00:39)
[2019-12-20] MEDS ORDERED: PROMETHAZINE HCL 12.5 MG in SODIUM CHLORIDE 0.9% 50 ML IV PRN (00:39)
[2019-12-20] MEDS ORDERED: GLUCOSE 40% GEL 15 GM TUBE PO PRN (00:39)
[2019-12-20] MEDS ORDERED: DEXTROSE 50% 50 ML SYRINGE IV PRN (00:39)
[2019-12-20] MEDS ORDERED: TIZANIDINE HCL 4 MG TABLET PO PRN (00:39)
[2019-12-20] MEDS: INSULIN ASPART 100 UNITS/ML 3 ML PEN SC SCH ×5 (01:07→21:40)
[2019-12-20] MEDS: MAGNESIUM SULFATE / D5W 1 GM/100 ML BAG IV SCH ×2 (01:22→03:23)
[2019-12-20] MEDS: HEPARIN SOD 5,000 UNIT/0.5 ML VIAL SQ SCH ×2 (05:57→13:42)
--- NOTE | 2019-12-20 06:46 | XRay Report ---
XR femur LT 2V routine, XR pelvis 1-2V routine HISTORY: 79 years-old Female PAIN acute pelvis and left femur pain COMPARISON: CT abdomen and pelvis 08/26/2015 TECHNIQUE: 2 views of the left femur with AP view of the pelvis FINDINGS: FEMUR: Chondrocalcinosis of the knee. Moderate medial patellofemoral with mild lateral compartment osteoarth ritis. Mild to moderate left hip osteoarthritis. No acute fracture, dislocation or avascular necrosis . There is mild cortical thickening involving the lateral cortex of the mid diaphyseal femur with a p eripherally sclerotic linear lucency. Arterial calcifications. No large joint effusion. PELVIS: Mild to moderate osteoarthritis of the hips with chondrocalcinosis. Surgical clips project over the l eft hemipelvis. No acute fracture or dislocation. IMPRESSION: 1. No acute fracture or dislocation. 2. Healing stress fracture involves the lateral cortex of the mid left femoral diaphysis. ACT 112: Negative or not required by law. The above report was generated using voice recognition software. It may contain grammatical, syntax o r spelling errors. Electronically signed by: Chidi Bagley M.D. 12/20/2019 6:44 AM
--- NOTE | 2019-12-20 06:47 | XRay Report ---
XR chest 1V portable HISTORY: 79 years-old Female renla failure acute renal failure COMPARISON: Chest CT 06/28/2019 TECHNIQUE: Portable AP view of the chest FINDINGS: Cardiac silhouette is enlarged. Right subclavian [id number] catheter. Calcified granuloma of the r ight upper lobe. No pneumothorax, pleural effusion, airspace consolidation or overt pulmonary edema. Degenerative changes of the spine and left shoulder. Reverse right shoulder total joint arthroplasty. IMPRESSION: No acute process. ACT 112: Negative or not required by law. The above report was generated using voice recognition software. It may contain grammatical, syntax o r spelling errors. Electronically signed by: Chidi Bagley M.D. 12/20/2019 6:46 AM
--- NOTE | 2019-12-20 06:51 | XRay Report ---
XR lumbar spine 2-3V HISTORY: 79 years-old Female pain LBP acute low back with left hip pain COMPARISON: Pelvis radiograph of same day, CT abdomen and pelvis 08/26/2015 TECHNIQUE: 3 views of the lumbar spine FINDINGS: 5 nonrib-bearing lumbar type vertebral segments. 7 mm anterolisthesis L5 on S1 has progressed from co mparison. Severe multilevel facet arthrosis with mild disc space narrowing and moderate spondylitic s purring. Surgical clips project in the left hemipelvis. Multiple pelvic phleboliths. Bilateral nephro lithiasis. IMPRESSION: 1. No acute fracture. 2. Grade 1 anterolisthesis L5 on S1 has progressed from comparison and is likely secondary to long-st anding severe facet arthrosis 3. Bilateral nephrolithiasis. ACT 112: Negative or not required by law. The above report was generated using voice recognition software. It may contain grammatical, syntax o r spelling errors. Electronically signed by: Chidi Bagley M.D. 12/20/2019 6:49 AM
[2019-12-20 06:58] LABS: Basophils # (auto) 0.01 K/uL (0-0.2); Basophils % (auto) 0.1 %; Eosinophils # (auto) 0.24 K/uL (0-0.5); Eosinophils % (auto) 3.4 %; Hematocrit (blood only) 37.4 % (37-47); Hemoglobin 12.4 g/dL (12.0-16.0); Immature Granulocytes # (auto) 0.01 K/uL (0.00-0.02); Immature Granulocytes % (auto) 0.1 %; Lymphocytes # (auto) 1.87 K/uL (1.2-3.4); Lymphocytes % (auto) 26.7 %; Mean Corpuscular Hemoglobin 30.7 pg (25-34); Mean Corpuscular Hgb Conc 33.2 g/dL (32-36); Mean Corpuscular Volume 92.6 fL (80-100); Mean Platelet Volume 10.6 fL (7.4-10.4); Monocytes # (auto) 0.88 K/uL (0.11-0.59); Monocytes % (auto) 12.6 %; Neutrophils % (auto) 57.1 %; Platelet Count 156 K/uL (130-400); RDW Coefficient of Variation 14.7 % (11.5-14.5); RDW Standard Deviation 49.9 fL (36.4-46.3); Red Blood Count 4.04 M/uL (4.2-5.4); White Blood Count 7.01 K/uL (4.8-10.8)
--- NOTE | 2019-12-20 07:06 | Ultrasound Report ---
ULTRASOUND LEFT LOWER EXTREMITY VENOUS CLINICAL HISTORY: Left leg pain. COMPARISON STUDY: Bilateral lower extremity venous ultrasound dated 12/31/2016. TECHNIQUE: Real-time, grayscale, and color Doppler sonography of the deep veins of the left lower ext remity was performed from the inguinal crease to the calf. Compression and augmentation were utilized . FINDINGS: There is no sonographic evidence of deep venous thrombosis identified in the left lower ext remity. The common femoral, superficial femoral, and popliteal veins are patent and normally compress ible. The greater saphenous vein and the profunda femoris vein at the junction with the common femora l vein are clear. The visualized calf veins are patent. IMPRESSION: There is no sonographic evidence of deep venous thrombosis identified in the left lower e xtremity. ACT 112: Negative or not required by law. Electronically signed by: Farhat Lynn M.D. 12/20/2019 7:04 AM
[2019-12-20 07:20] LABS: BUN Creatinine Ratio 15.5 (10-20); Calcium 7.9 mg/dl (8.5-10.1); Creatinine Clr Calc Pharmacy 44.1 ml/min; Est GFR (African American) 55.9; Est GFR (Non-African American) 48.2; Magnesium 2.4 mg/dl (1.8-2.4); Potassium 3.8 mmol/L (3.5-5.1)
[2019-12-20] MEDS: LORATADINE 10 MG TAB PO SCH (08:55)
[2019-12-20] MEDS: METOPROLOL SUCC 50MG EXT REL TAB PO SCH (08:55)
[2019-12-20] MEDS: ATORVASTATIN 20 MG TAB PO SCH (08:55)
[2019-12-20] MEDS: AMLODIPINE BESYLATE 5 MG TAB PO SCH (08:55)
[2019-12-20] MEDS ORDERED: SODIUM CHLORIDE 0.9% 1000ML 500 ML IV ONE (09:18)
--- NOTE | 2019-12-20 09:18 | Hospitalist Progress Note ---
Date of Service December 20, 2019 Assessment & Plan (1) Asymptomatic hypertensive urgency: Secondary to left upper leg pain, NSAID intake Etiology to be determined ARF ? New baseline, serum creatinine noted to be 1.3 last month on blood draw from normal baseline in the past Multifactorial Diarrheal illness possibly from chemotherapy rule out C. difficile NSAID Rx, lisinopril contributory Hold lisinopril until creatinine back to baseline Now creatinine normalized Patient counseled about adverse effects of NSAIDs on blood pressure and kidney function. Continue home BP meds, may need dose titration Left upper leg pain Follow official hip/pelvic x-ray results, add plain x-ray of left femur Orthopedics consult Re: Left upper leg pain X-ray concerning for stress fracture, orthopedics recommend MRI with contrast Gave additional of 500 cc of normal saline prior to contrast Currently creatinine normalized MRI reviewed by Ortho, recommend left femur intramedullary nail, plan for tomorrow December 20 Paroxysmal AFib, patient NSR DM2 diet controlled, well-controlled as of recent outpatient hemoglobin A1c of 5.6% November 2019 ISS BG goal [id number] Hypokalemia secondary to diarrheal illness Decubiti wounds, no gross infection as per progressive care manager nurse consult Re: decubiti wounds Hx BRCA gene mutation Recurrent NSCLC status post surgery ongoing Osimertinib tx Hx breast cancer, L sp surgery and chemotherapy Uterine cancer sp surgery/chemotx Stool C. difficile Replace electrolytes DVT prophylaxis. Heparin subcu Full code Admission and Anticipated Discharge Date Admission Date: December 19, 2019 Subjective Patient is currently lying in bed, in no acute distress. Pt's is at the bedside. Patient is alert and oriented and answering questions appropriately. She denies any shortness of breath or chest pain. Also denies any abdominal pain, nausea or vomiting. She only reports left thigh pain with movement. She says it does not bother her when she is resting/ not moving. Review of Systems Review of Systems: All systems reviewed & are unremarkable except as noted in HPI & below Constitutional: no fever and no chills Respiratory: no cough and no dyspnea Cardiovascular: no chest pain and no palpitations Gastrointestinal: no abdominal pain, no nausea and no vomiting Physical Exam Physical Exam: GENERAL: Elderly female, obese, laying in bed, in no acute distress HEENT: Normocephalic, atraumatic, EOMI, PERRL, bespectacled, pink palpebral conjunctivae, no ptosis NECK : Supple, short neck, no tenderness CHEST : CTA no wheezing, rhonchi or crackles, no tenderness HEART : RRR, no obvious murmurs ABDOMEN: Positive bowel sounds, soft, obese, mild distention, nontender to palp. EXTREMITIES : Minimal LE swelling, some L thigh tenderness, able to move extremities spontaneously including lower extremities, however patient has more pain when moving left lower extremity SKIN: Normal color, warm, dry NEUROLOGIC : Alert and oriented x3, no facial asymmetry, speech fluent, Results & Data Results & Data ([facility]) Vital Signs (Past 12 Hours) Vital Signs Temp Pulse Pulse Pulse Resp BP Pulse Ox 12/20/19 07:11 36.9 C 62 18 145/76 H 94 12/20/19 05:00 76 12/20/19 03:28 36.6 C 62 18 138/68 92 12/20/19 01:36 36.8 C 83 16 166/79 H 94 12/19/19 23:25 70 24 170/74 H 96 12/19/19 22:20 82 18 175/78 H 96 Laboratory Results 12/20/19 12/20/19 12/20/19 Range/Units 07:43 06:20 06:20 WBC 7.01 (4.8-10.8) K/uL RBC 4.04 L (4.2-5.4) M/uL Hgb 12.4 (12.0-16.0) g/dL Hct 37.4 (37-47) % MCV 92.6 D (80-100) fL MCH 30.7 (25-34) pg MCHC 33.2 (32-36) g/dL RDW Std Deviation 49.9 H (36.4-46.3) fL RDW Coeff of Thien 14.7 H (11.5-14.5) % Plt Count 156 (130-400) K/uL MPV 10.6 H (7.4-10.4) fL Immature Gran % (Auto) 0.1 % Neut % (Auto) 57.1 % Lymph % (Auto) 26.7 % Collier % (Auto) 12.6 % Eos % (Auto) 3.4 % Baso % (Auto) 0.1 % Neut # (Auto) 4.00 (1.4-6.5) K/uL Lymph # (Auto) 1.87 (1.2-3.4) K/uL [place]lier # (Auto) 0.88 H (0.11-0.59) K/uL Eos # (Auto) 0.24 (0-0.5) K/uL Baso # (Auto) 0.01 (0-0.2) K/uL Immature Gran # (Auto) 0.01 (0.00-0.02) K/uL Sodium 144 (136-145) mmol/L Potassium 3.8 D (3.5-5.1) mmol/L Chloride 114 H (98-107) mmol/L Carbon Dioxide 24 (21-32) mmol/L Anion Gap 6.0 (3-11) BUN 17 (7-18) mg/dl Creatinine 1.09 (0.6-1.2) mg/dl Est Cr Clr Drug Dosing 44.1 Est GFR ( Amer) 55.9 Est GFR (Non-Af Amer) 48.2 BUN/Creatinine Ratio 15.5 (10-20) Glucose 85 (70-99) mg/dl POC Glucose 94 (70-99) mg/dl Calcium 7.9 L (8.5-10.1) mg/dl Magnesium 2.4 (1.8-2.4) mg/dl Total Creatine Kinase (26-192) U/L TSH (0.300-4.500) uIu/ml 12/20/19 12/19/19 12/19/19 Range/Units 01:00 19:53 19:53 WBC (4.8-10.8) K/uL RBC (4.2-5.4) M/uL Hgb (12.0-16.0) g/dL Hct (37-47) % MCV (80-100) fL MCH (25-34) pg MCHC (32-36) g/dL RDW Std Deviation (36.4-46.3) fL RDW Coeff of Thien (11.5-14.5) % Plt Count (130-400) K/uL MPV (7.4-10.4) fL Immature Gran % (Auto) % Neut % (Auto) % Lymph % (Auto) % Collier % (Auto) % Eos % (Auto) % Baso % (Auto) % Neut # (Auto) (1.4-6.5) K/uL Lymph # (Auto) (1.2-3.4) K/uL Collier # (Auto) (0.11-0.59) K/uL Eos # (Auto) (0-0.5) K/uL Baso # (Auto) (0-0.2) K/uL Immature Gran # (Auto) (0.00-0.02) K/uL Sodium 143 (136-145) mmol/L Potassium 3.1 L (3.5-5.1) mmol/L Chloride 110 H (98-107) mmol/L Carbon Dioxide 26 (21-32) mmol/L Anion Gap 7.0 (3-11) BUN 22 H (7-18) mg/dl Creatinine 1.25 H (0.6-1.2) mg/dl Est Cr Clr Drug Dosing Not Reportable Est GFR ( Amer) 47.4 Est GFR (Non-Af Amer) 40.9 BUN/Creatinine Ratio 17.9 (10-20) Glucose 107 H (70-99) mg/dl POC Glucose 103 H (70-99) mg/dl Calcium 9.0 (8.5-10.1) mg/dl Magnesium Cancelled 1.6 L (1.8-2.4) mg/dl Total Creatine Kinase 78 (26-192) U/L TSH Cancelled 2.410 (0.300-4.500) uIu/ml 12/19/19 Range/Units 19:53 WBC 7.32 (4.8-10.8) K/uL RBC 4.37 (4.2-5.4) M/uL Hgb 13.5 (12.0-16.0) g/dL Hct 37.0 (37-47) % MCV 84.7 (80-100) fL MCH 30.9 (25-34) pg MCHC 36.5 H (32-36) g/dL RDW Std Deviation 45.0 (36.4-46.3) fL RDW Coeff of Thien 14.5 (11.5-14.5) % Plt Count 180 (130-400) K/uL MPV 10.2 (7.4-10.4) fL Immature Gran % (Auto) 0.1 % Neut % (Auto) 66.2 % Lymph % (Auto) 20.5 % Collier % (Auto) 9.4 % Eos % (Auto) 3.7 % Baso % (Auto) 0.1 % Neut # (Auto) 4.84 (1.4-6.5) K/uL Lymph # (Auto) 1.50 (1.2-3.4) K/uL [place] # (Auto) 0.69 H (0.11-0.59) K/uL Eos # (Auto) 0.27 (0-0.5) K/uL Baso # (Auto) 0.01 (0-0.2) K/uL Immature Gran # (Auto) 0.01 (0.00-0.02) K/uL Sodium (136-145) mmol/L Potassium (3.5-5.1) mmol/L Chloride (98-107) mmol/L Carbon Dioxide (21-32) mmol/L Anion Gap (3-11) BUN (7-18) mg/dl Creatinine (0.6-1.2) mg/dl Est Cr Clr Drug Dosing Est GFR ( Amer) Est GFR (Non-Af Amer) BUN/Creatinine Ratio (10-20) Glucose (70-99) mg/dl POC Glucose (70-99) mg/dl Calcium (8.5-10.1) mg/dl Magnesium (1.8-2.4) mg/dl Total Creatine Kinase (26-192) U/L TSH (0.300-4.500) uIu/ml
[2019-12-20] MEDS: ACETAMINOPHEN 500 MG TAB PO PRN ×2 (10:11→23:50)
[2019-12-20] MEDS ORDERED: LORazepam 0.5 MG TAB PO STA (10:55)
[2019-12-20] MEDS ORDERED: GADOBUTROL 65ML VIAL IV ONE (12:26)
--- NOTE | 2019-12-20 12:47 | Electrocardiogram Report ---
Test Reason : Blood Pressure : / mmHG Vent. Rate : 063 BPM Atrial Rate : 063 BPM P-R Int : 142 ms QRS Dur : 086 ms QT Int : 442 ms P-R-T Axes : 038 -08 034 degrees QTc Int : 452 ms Normal sinus rhythm Nonspecific T wave abnormality Abnormal ECG When compared with ECG of 28-JUN-2018 09:56, Nonspecific T wave abnormality now evident in Anterior leads Confirmed by Fox Tapia ([id number]) on 12/20/2019 12:47:18 PM Referred By: REFERRED SELF Confirmed By:Fox Tapia
--- NOTE | 2019-12-20 13:25 | Magnetic Resonance Report ---
MR femur LT wo/w con HISTORY: 79 years-old Female leg pain acute pain of the left femur with history of breast cancer COMPARISON: Left femur radiographs 12/19/2019 TECHNIQUE: Multiplanar multisequence MRI of the left femur was obtained both with and without the use of 8.4 mL Gadavist. FINDINGS: There is a linear area of sclerosis noted transversely within the lateral cortex of the mid femoral d iaphysis correlating with the abnormality seen on comparison radiographs. There is moderate amount of associated medullary space and intracortical edema with associated periosteal and endosteal edema. T he medial cortex is intact. Bone marrow signal is otherwise normal. Bilateral hip osteoarthritis. No avascular necrosis identified. Correspondingly decreased T1 marrow signal within the area of edema is noted with reactive enhancement. Soft tissues are otherwise unremarkable. IMPRESSION: Healing stress fracture involving the lateral cortex of the mid femoral diaphysis is conf irmed which demonstrates moderate medullary space, endosteal and periosteal edema with reactive enhan cement. ACT 112: Negative or not required by law. The above report was generated using voice recognition software. It may contain grammatical, syntax o r spelling errors. Electronically signed by: Chidi Bagley M.D. 12/20/2019 1:24 PM
[2019-12-20] MEDS: OSIMERTINIB MESYLATE 80 MG PO SCH (16:20)
--- NOTE | 2019-12-20 16:28 | Orthopedic Consultation ---
Date of Consultation December 20, 2019 Assessment & Plan (1) Stress fracture of left femur: SHe was seen and examined by Dr. Paez today as well. She was educated on this problem we talked about treatment options including continued conservative management with limited weightbearing on the left leg versus surgical fixation, specifically IM nailing of the left femur. With the worsening of her symptoms and the severity of her symptoms at this point we did recommend surgical intervention. Procedure was explained including the risks and benefits of intramedullary nailing of her left femur. She does want to proceed with surgery. Consent was obtained. We will stop her heparin now. We will make her n.p.o. after midnight and plan for surgery likely tomorrow afternoon. Present on Admission?: Yes History of Present Illness Reason for Consultation: left thigh pain Attending Physician: John Song MD History of Present Illness 79-year-old female admitted yesterday with worsening left thigh pain. She had x-rays obtained which showed some evidence of a stress fracture in the femoral shaft and orthopedics was consulted for further evaluation. She states that she has had this left thigh pain for approximately 3 months or so but has been worsening significantly over the past 2 weeks. In fact her sons had to carry her out of the house to a chair and then carry her to the car to bring her to the hospital. Her pain is primarily with weightbearing or walking but she does have some pain with movement of the left leg. Really no rest pain. Denies any numbness or tingling in her lower extremity. Denies any fevers or chills. She has had some weight loss but she feels that is related to chemotherapy. She has a medical history significant for lung cancer for which she is currently undergoing chemotherapy, history of breast cancer uterine cancer and skin cancer. Her complete history was reviewed and included below.No other complaints at this time. Allergies Allergy/AdvReac Type Severity Reaction Status Date / Time castor oil Allergy Unknown ANAPHYLACTI Verified 10/12/19 09:42 C Cipro Allergy Unknown HIVES Verified 05/19/17 06:57 ciprofloxacin Allergy Unknown HIVES Verified 10/12/19 09:42 paclitaxel Allergy Unknown ANAPHYLACTI Verified 10/12/19 09:42 C codeine AdvReac Unknown GI SYMPTOMS Verified 10/12/19 09:42 cyproheptadine AdvReac Unknown lethargy Verified 10/12/19 09:42 doxepin AdvReac Unknown lethargy Verified 10/12/19 09:42 gabapentin AdvReac Unknown GI SYMPTOMS Verified 10/12/19 09:42 hydrocodone AdvReac Unknown GI SYMPTOMS Verified 10/12/19 09:42 meloxicam AdvReac Unknown dizzy,heada Verified 10/12/19 09:42 michael,nausea oxycodone AdvReac Unknown GI SYMPTOMS Verified 10/12/19 09:42 prednisone AdvReac Unknown ELEVATED Verified 10/12/19 09:42 GLUCOSE tramadol AdvReac Unknown GI SYMPTOMS Verified 10/12/19 09:42 Ethanol Allergy Unknown ANAPHYLACTIC-- Uncoded 10/12/19 09:42 PATIENT DENIES* Home Medications Home Medications Medication Instructions Recorded Confirmed Type albuterol sulfate 2 puff INHALATION QID PRN 06/23/18 12/19/19 History alendronate [Fosamax] 1 tab PO WK 06/23/18 12/19/19 History amlodipine 10 mg PO QAM 06/23/18 12/19/19 History amoxicillin 4 cap PO UD PRN 06/23/18 12/19/19 History atorvastatin 20 mg PO QAM 06/23/18 12/19/19 History cholecalciferol (vitamin D3) 2,000 unit PO QAM 06/23/18 12/19/19 History [Vitamin D3] colchicine 0.6 mg PO BID PRN 06/23/18 12/19/19 History ibuprofen 600 tab PO Q8H PRN 06/23/18 12/19/19 History lisinopril 20 mg PO QAM 06/23/18 12/19/19 History loratadine 10 mg PO DAILY 06/23/18 12/19/19 History lorazepam 0.5 mg PO UD PRN 06/23/18 12/19/19 History magnesium chloride 64 mg PO BID 06/23/18 12/19/19 History metoprolol succinate 50 mg PO QAM 06/23/18 12/19/19 History potassium chloride 10 meq PO TID 06/23/18 12/19/19 History spironolactone 12.5 tab PO 5XWK 06/23/18 12/19/19 History tizanidine 4 mg PO TID PRN 06/23/18 12/19/19 History meloxicam 15 mg tablet 15 mg PO DAILY #30 tab 07/13/19 12/19/19 Rx fluticasone propionate [Flonase] 2 spray INTRANASAL DAILY PRN 12/19/19 12/19/19 History nystatin 1 applic TOPICAL TID 12/19/19 12/19/19 History ondansetron HCl 8 mg PO Q8H PRN 12/19/19 12/19/19 History osimertinib [Tagrisso] 80 mg PO DAILY 12/19/19 12/19/19 History prochlorperazine maleate 10 mg PO Q6H PRN 12/19/19 12/19/19 History Patient History Medical History Acid reflux Anxiety Gout History of breast cancer S/P CHEMO (LAST CHEMO 2015) History of bronchitis INHALER PRN; NO RECENT ISSUES History of kidney stones History of lung cancer S/P RUL WEDGE RESECTION History of skin cancer History of uterine cancer Hypertension Kidney disease STAGE III Obesity Osteoporosis Prediabetes Vertigo RARE Surgical History History of colonoscopy History of hysterectomy History of left mastectomy History of lung surgery RIGHT LUNG NODULE EXCISION/PARTIAL LUNG RESECTION History of surgery A-PORT (RIGHT) PLACED 2/2 CHEMO History of tonsillectomy and adenoidectomy History of total right knee replacement 05/19/17= SAB X 1 ATTEMPT + PNB AT [facility] Family History Mother History of breast cancer History of ovarian cancer Grandmother History of colon cancer Social History Smoking Status: Never smoker Second Hand Exposure: Yes (); Hx Alcohol Use: No Hx Substance Use: No Preferred Language: Romanian Communication Ability: Effective Plant Inspector Required: No Beliefs That Will Affect Care: None marital status: Current Living Situation: Spouse Feels Safe at Home: Yes Review of Systems Review of Systems: All systems reviewed & are unremarkable except as noted in HPI & below Musculoskeletal: as per Subjective / HPI Physical Exam Physical Exam: Well-developed well-nourished elderly female no distress. She is alert and oriented. On exam of the left lower extremity, skin is intact. No significant swelling noticed around the thigh. She is able do a straight leg raise has some discomfort in the lateral thigh with this. She has no pain with range of motion of her hip today. No knee effusion. Some tenderness around the lateral thigh. She is able to dorsiflex and plantar flex appropriately. She is neurovascular intact. Results & Data ([facility]) Vital Signs (Past 12 Hours) Vital Signs Temp Pulse Pulse Resp BP Pulse Ox 12/20/19 15:55 36.5 C 69 18 143/80 H 96 12/20/19 15:12 71 12/20/19 12:08 36.6 C 69 18 157/76 H 95 12/20/19 07:30 67 12/20/19 07:11 36.9 C 62 18 145/76 H 94 12/20/19 05:00 76 Diagnostic Findings X-rays were reviewed of her pelvis and her femur and show some sclerotic change and evidence of the stress fracture in the lateral cortex of the midshaft of her left femur. There is also some lucency in the proximal femur along the lateral cortex and we are concerned about. We did get an MRI of the left femur today which again demonstrates the stress fracture in the midshaft of her femur. No other abnormalities in her femur. PG Care Time/CCT Total # of Minutes Spent Total Time Spent with Patient: Total time spent is greater than 50% in coordination of care (as documented) at patient's floor/unit and/or counseling patient: Coding Level of Care Code 78746 Initial Inpt Care Lvl 3 Diagnoses Stress fracture of left femur M84.352A
--- NOTE | 2019-12-20 17:48 | Anesthesiology Consultation ---
Date of Service December 20, 2019 Assessment & Plan Chart Review Chart Review: Acceptable Risk for Surgery and Patient NOT seen in Pre Admission Testing Consults Requested none ASA ASA4 History Surgery Operation Date: 12/21/19 10:45 Proposed Procedures p Left Femur Intramedullary Nail - Toy Paez MD Height/Weight Height: 5 ft 4 in Weight: 84.7 kg Allergies Allergy/AdvReac Type Severity Reaction Status Date / Time castor oil Allergy Unknown ANAPHYLACTI Verified 10/12/19 09:42 C Cipro Allergy Unknown HIVES Verified 05/19/17 06:57 ciprofloxacin Allergy Unknown HIVES Verified 10/12/19 09:42 paclitaxel Allergy Unknown ANAPHYLACTI Verified 10/12/19 09:42 C codeine AdvReac Unknown GI SYMPTOMS Verified 10/12/19 09:42 cyproheptadine AdvReac Unknown lethargy Verified 10/12/19 09:42 doxepin AdvReac Unknown lethargy Verified 10/12/19 09:42 gabapentin AdvReac Unknown GI SYMPTOMS Verified 10/12/19 09:42 hydrocodone AdvReac Unknown GI SYMPTOMS Verified 10/12/19 09:42 meloxicam AdvReac Unknown dizzy,heada Verified 10/12/19 09:42 michael,nausea oxycodone AdvReac Unknown GI SYMPTOMS Verified 10/12/19 09:42 prednisone AdvReac Unknown ELEVATED Verified 10/12/19 09:42 GLUCOSE tramadol AdvReac Unknown GI SYMPTOMS Verified 10/12/19 09:42 Ethanol Allergy Unknown ANAPHYLACTIC-- Uncoded 10/12/19 09:42 PATIENT DENIES* Medications Home Medications Medication Instructions Recorded Confirmed Last Taken albuterol sulfate 2 puff INHALATION QID PRN 06/23/18 12/19/19 Unknown alendronate [Fosamax] 1 tab PO WK 06/23/18 12/19/19 07/04/18 amlodipine 10 mg PO QAM 06/23/18 12/19/19 07/06/18 0600 amoxicillin 4 cap PO UD PRN 06/23/18 12/19/19 06/16/18 atorvastatin 20 mg PO QAM 06/23/18 12/19/19 07/05/18 0600 cholecalciferol (vitamin D3) 2,000 unit PO QAM 06/23/18 12/19/19 07/05/18 [Vitamin D3] 0600 colchicine 0.6 mg PO BID PRN 06/23/18 12/19/19 07/04/18 ibuprofen 600 tab PO Q8H PRN 06/23/18 12/19/19 06/27/18 lisinopril 20 mg PO QAM 06/23/18 12/19/19 07/06/18 06:00 0600 loratadine 10 mg PO DAILY 06/23/18 12/19/19 07/05/18 06:00 lorazepam 0.5 mg PO UD PRN 06/23/18 12/19/19 06/16/18 magnesium chloride 64 mg PO BID 06/23/18 12/19/19 07/04/18 metoprolol succinate 50 mg PO QAM 06/23/18 12/19/19 07/05/18 0600 potassium chloride 10 meq PO TID 06/23/18 12/19/19 07/04/18 spironolactone 12.5 tab PO 5XWK 06/23/18 12/19/19 07/05/18 06:00 tizanidine 4 mg PO TID PRN 06/23/18 12/19/19 07/04/18 0800 meloxicam 15 mg tablet 15 mg PO DAILY #30 tab 07/13/19 12/19/19 Unknown fluticasone propionate [Flonase] 2 spray INTRANASAL DAILY PRN 12/19/19 12/19/19 Unknown nystatin 1 applic TOPICAL TID 12/19/19 12/19/19 Unknown ondansetron HCl 8 mg PO Q8H PRN 12/19/19 12/19/19 Unknown osimertinib [Tagrisso] 80 mg PO DAILY 12/19/19 12/19/19 Unknown prochlorperazine maleate 10 mg PO Q6H PRN 12/19/19 12/19/19 Unknown Active Medications Generic Name Dose Route Start Last Admin Trade Name Freq PRN Reason Stop Dose Admin Acetaminophen 1,000 mg 12/20/19 09:49 12/20/19 10:11 Acetaminophen 500 Mg Tab PO 01/19/20 09:48 1,000 mg Q6H PRN Administration Pain Amlodipine Besylate 10 mg 12/20/19 09:00 12/20/19 08:55 Amlodipine Besylate 5 Mg Tab PO 01/19/20 08:59 10 mg QAM BERNARDA Administration Atorvastatin Calcium 20 mg 12/20/19 09:00 12/20/19 08:55 Atorvastatin 20 Mg Tab PO 01/19/20 08:59 20 mg QAM BRENARDA Administration Insulin Aspart 0 units 12/20/19 00:39 12/20/19 17:24 Insulin Aspart 100 Units/Ml 3 Ml Pen SC 01/19/20 00:38 Not Given ACHS BERNARDA Loratadine 10 mg 12/20/19 09:00 12/20/19 08:55 Loratadine 10 Mg Tab PO 01/19/20 08:59 10 mg DAILY BERNARDA Administration Metoprolol Succinate 50 mg 12/20/19 09:00 12/20/19 08:55 Metoprolol Succ 50mg Ext Rel Tab PO 01/19/20 08:59 50 mg QAM BERNARDA Administration Miscellaneous 1 ea 12/20/19 08:00 12/20/19 08:56 Remove Lidoderm Patch N/A 01/19/20 07:59 1 ea DAILY@0800 BERNARDA Administration Osimertinib 1 ea 12/20/19 16:00 12/20/19 16:20 Osimertinib Mesylate 80 Mg PO 01/19/20 15:59 1 ea DAILY BERNARDA Administration Past Medical History Medical History Acid reflux Anxiety Gout History of breast cancer S/P CHEMO (LAST CHEMO 2015) History of bronchitis INHALER PRN; NO RECENT ISSUES History of kidney stones History of lung cancer S/P RUL WEDGE RESECTION History of skin cancer History of uterine cancer Hypertension Kidney disease STAGE III Obesity Osteoporosis Prediabetes Vertigo RARE Exercise / Class Metabolic Activity III < 4 Walking/Shop/Light housework Past Family History Family History Mother History of breast cancer History of ovarian cancer Grandmother History of colon cancer Past Surgical History Surgical History History of colonoscopy History of hysterectomy History of left mastectomy History of lung surgery RIGHT LUNG NODULE EXCISION/PARTIAL LUNG RESECTION History of surgery A-PORT (RIGHT) PLACED 2/2 CHEMO History of tonsillectomy and adenoidectomy History of total right knee replacement 05/19/17= SAB X 1 ATTEMPT + PNB AT [facility] Past Anesthesia History No Hx of Anesthesia Complications and No Family Hx of Anesthesia Complications History of PONV No Hx of PONV and No Hx of Motion Sickness Social History Smoking Status: Never smoker Hx Alcohol Use: No Alcohol type: wine alcohol intake frequency: holidays/special occasions only Hx Substance Use: No substance use type: does not use Physical Exam Vital Signs Last Vital Signs Temp 36.5 C 12/20/19 15:55 Pulse 69 12/20/19 15:55 Resp 18 12/20/19 15:55 BP 143/80 H 12/20/19 15:55 Pulse Ox 96 12/20/19 15:55 Testing Laboratory Results 12/20/19 06:20 12/20/19 06:20 12/20/19 12/20/19 12/20/19 16:29 13:23 11:31 POC Glucose 102 H 84 87 12/20/19 07:43 POC Glucose 94 Electrocardiogram Date: 12/19/19 Findings: + NSR @ (at 63) and + NSST changes Chest X-Ray Date: 12/19/19 Findings: + NAD right subclavian infusaport in situ Echocardiogram Date: 01/01/17 EF: 65% LV Function: normal RWMA: + none Other Findings: + LVH (mild) and + diastolic dysfunction (grade 1)
[2019-12-20] MEDS: LIDOCAINE 5% 1 PATCH TD SCH (19:28)
[2019-12-21 07:29] LABS: Basophils # (auto) 0.01 K/uL (0-0.2); Basophils % (auto) 0.2 %; Eosinophils # (auto) 0.22 K/uL (0-0.5); Eosinophils % (auto) 3.7 %; Hematocrit (blood only) 37.4 % (37-47); Hemoglobin 12.5 g/dL (12.0-16.0); Immature Granulocytes # (auto) 0.01 K/uL (0.00-0.02); Immature Granulocytes % (auto) 0.2 %; Lymphocytes # (auto) 2.06 K/uL (1.2-3.4); Lymphocytes % (auto) 34.8 %; Mean Corpuscular Hemoglobin 31.1 pg (25-34); Mean Corpuscular Hgb Conc 33.4 g/dL (32-36); Monocytes % (auto) 10.1 %; Neutrophils # (auto) 3.02 K/uL (1.4-6.5); Platelet Count 159 K/uL (130-400); RDW Coefficient of Variation 14.6 % (11.5-14.5); RDW Standard Deviation 50.3 fL (36.4-46.3); Red Blood Count 4.02 M/uL (4.2-5.4); White Blood Count 5.92 K/uL (4.8-10.8)
[2019-12-21 08:00] LABS: BUN Creatinine Ratio 15.4 (10-20); Calcium 8.6 mg/dl (8.5-10.1); Creatinine Clr Calc Pharmacy 41.9 ml/min; Est GFR (African American) 52.4; Est GFR (Non-African American) 45.2; Potassium 3.8 mmol/L (3.5-5.1)
[2019-12-21] MEDS: INSULIN ASPART 100 UNITS/ML 3 ML PEN SC SCH ×4 (08:02→21:12)
[2019-12-21] MEDS: METOPROLOL SUCC 50MG EXT REL TAB PO SCH (08:02)
[2019-12-21] MEDS: ATORVASTATIN 20 MG TAB PO SCH (08:03)
[2019-12-21] MEDS: LORATADINE 10 MG TAB PO SCH (08:03)
[2019-12-21] MEDS: AMLODIPINE BESYLATE 5 MG TAB PO SCH (08:03)
[2019-12-21] MEDS: OSIMERTINIB MESYLATE 80 MG PO SCH (08:04)
[2019-12-21 10:34] LABS: INR 1.1 (0.9-1.1); Prothrombin Time 11.1 Seconds (9.0-12.0)
--- NOTE | 2019-12-21 13:37 | Hospitalist Progress Note ---
Date of Service December 21, 2019 Assessment & Plan (1) Stress fracture of left femur: MRI of the left hip did show healing stress fracture involving the lateral cortex of the mid femoral diaphysis Appreciate Ortho input and recommendation Will have it left femur intramedullary nail placement today (2) Acute leg pain: Left upper leg pain Follow official hip/pelvic x-ray results, add plain x-ray of left femur Orthopedics consult Re: Left upper leg pain X-ray concerning for stress fracture, orthopedics recommend MRI with contrast Gave additional of 500 cc of normal saline prior to contrast Currently creatinine normalized MRI reviewed by Ortho, recommend left femur intramedullary nail, plan for tomorrow December 20 (3) Asymptomatic hypertensive urgency: Secondary to left upper leg pain, NSAID intake Etiology to be determined Blood pressure remains stable Denies any symptoms ARF Noted to have increasing creatinine of 1.25 on admission Secondary to dehydration and contributed by use of NSAID use Received cautious amount of IV fluid and oral fluid Kidney function has been normalized Paroxysmal AFib, patient NSR No acute symptoms DM2 diet controlled, well-controlled as of recent outpatient hemoglobin A1c of 5.6% November 2019 ISS BG goal [id number] Decubiti wounds, no gross infection as per infant childcare provider nurse consult Re: decubiti wounds Hx BRCA gene mutation Recurrent NSCLC status post surgery ongoing Osimertinib tx Hx breast cancer, L sp surgery and chemotherapy Uterine cancer sp surgery/chemotx No acute symptoms Stool C. difficile Replace electrolytes DVT prophylaxis. Heparin subcu Full code Admission and Anticipated Discharge Date Admission Date: December 19, 2019 Subjective 12/21/2019 The patient was seen and examined in medical telemetry unit She has been complaining of left hip pain Denies any headache, numbness or tingling involving any of the extremities Review of Systems Review of Systems: All systems reviewed and are unremarkable except as noted below Musculoskeletal: Left hip pain with movement Physical Exam Physical Exam: Sitting on a chair without any acute symptoms Constitutional: well developed and well nourished; no acute distress and not ill appearing Eyes: PERRL, conjunctivae normal, anicteric sclerae ENMT: external ear and nose normal, oropharynx normal Neck: trachea midline, no thyromegaly Respiratory: normal respiratory effort; no respiratory distress Auscultation: lungs clear to auscultation bilaterally Cardiovascular: Rate/Rhythm: regular rate and regular rhythm Heart Sounds: no murmur Gastrointestinal (Abdomen): Inspection/Auscultation: abdomen normal to inspection and normal bowel sounds; abdomen not distended Percussion/Palpation: abdomen soft; abdomen nontender Musculoskeletal: Movement of the left hip produces moderate pain Neurologic: moves all extremities; no focal motor deficits Results & Data Results & Data ([facility]) Vital Signs (Past 12 Hours) Vital Signs Temp Pulse Pulse Resp BP Pulse Ox 12/21/19 11:32 36.6 C 66 18 144/84 H 97 12/21/19 10:00 61 12/21/19 07:15 36.6 C 67 18 176/83 H 96 12/21/19 04:02 36.7 C 66 20 130/78 93 Laboratory Results Short CBC 12/21/19 Range/Units 07:10 WBC 5.92 (4.8-10.8) K/uL Hgb 12.5 (12.0-16.0) g/dL Hct 37.4 (37-47) % Plt Count 159 (130-400) K/uL BMP 12/21/19 07:10 Sodium 143 Potassium 3.8 Chloride 112 H Carbon Dioxide 26 BUN 18 Creatinine 1.15 Glucose 80 Calcium 8.6 Medications Administered Current Inpatient Medications Acetaminophen (Acetaminophen 500 Mg Tab) 1,000 mg PO Q6H PRN PRN Reason: Pain Stop: 01/19/20 09:48 Last Admin: 12/20/19 23:50 Dose: 1,000 mg Documented by: Amlodipine Besylate (Amlodipine Besylate 5 Mg Tab) 10 mg PO [facility] Stop: 01/19/20 08:59 Last Admin: 12/21/19 08:03 Dose: 10 mg Documented by: Atorvastatin Calcium (Atorvastatin 20 Mg Tab) 20 mg PO [facility] Stop: 01/19/20 08:59 Last Admin: 12/21/19 08:03 Dose: 20 mg Documented by: Dextrose (Dextrose 50% 50 Ml Syringe) 25 - 50 ml IV UD PRN; Protocol PRN Reason: Hypoglycemia Protocol Stop: 01/19/20 00:38 Glucagon (Glucagon For Inj 1 Mg Vial) 1 mg SQ UD PRN; Protocol PRN Reason: Hypoglycemia Protocol Stop: 01/19/20 00:38 Glucose (Glucose 10 Tabs/Tube) 4 - 8 tabs PO UD PRN; Protocol PRN Reason: Hypoglycemia Protocol Stop: 01/19/20 00:38 Glucose (Glucose 40% Gel 15 Gm Tube) 15 - 30 gm PO UD PRN; Protocol PRN Reason: Hypoglycemia Protocol Stop: 01/19/20 00:38 Hydromorphone HCl (Hydromorphone Inj 0.5 Mg/0.5 Ml Syr) 0.25 mg IV Q3H PRN PRN Reason: Pain Stop: 01/03/20 00:38 Hydromorphone HCl (Hydromorphone Hcl 2 Mg Tab) 2 mg PO QID PRN PRN Reason: Pain Stop: 01/03/20 00:38 Promethazine HCl 12.5 mg/ (Sodium Chloride) 50.5 mls @ 202 mls/hr IV Q6H PRN PRN Reason: Nausea And Vomiting Stop: 01/19/20 00:38 Insulin Aspart (Insulin Aspart 100 Units/Ml 3 Ml Pen) 0 units SC ACHS [facility] Stop: 01/19/20 00:38 Last Admin: 12/21/19 12:01 Dose: Not Given Documented by: Lidocaine (Lidocaine 5% 1 Patch) 1 patch TD DAILY@1999 [facility] Stop: 01/19/20 19:59 Last Admin: 12/20/19 19:28 Dose: 1 patch Documented by: Loratadine (Loratadine 10 Mg Tab) 10 mg PO DAILY [facility] Stop: 01/19/20 08:59 Last Admin: 12/21/19 08:03 Dose: 10 mg Documented by: Metoprolol Succinate (Metoprolol Succ 50mg Ext Rel Tab) 50 mg PO QAM [facility] Stop: 01/19/20 08:59 Last Admin: 12/21/19 08:02 Dose: 50 mg Documented by: Miscellaneous (Carbohydrates For Hypoglycemia ) 15 - 30 gm PO UD PRN PRN Reason: Hypoglycemia Protocol Stop: 01/19/20 00:38 Miscellaneous (Remove Lidoderm Patch) 1 ea N/A DAILY@0800 [facility] Stop: 01/19/20 07:59 Last Admin: 12/21/19 08:02 Dose: 1 ea Documented by: Osimertinib (Osimertinib Mesylate 80 Mg) 1 ea PO DAILY [facility] Stop: 01/19/20 15:59 Last Admin: 12/21/19 08:04 Dose: Not Given Documented by: Tizanidine HCl (Tizanidine Hcl 4 Mg Tablet) 4 mg PO TID PRN PRN Reason: MUSCLE SPASMS Stop: 01/19/20 00:38 (1) Acute leg pain Laterality: left Qualified Code(s): M79.605 - Pain in left leg
--- NOTE | 2019-12-21 14:21 | History & Physical Bridge Note ---
Date of Service December 21, 2019 History & Physical Bridge Note I have examined the patient, reviewed the History & Physical and in the interval since the performance of the History & Physical I have noted the following changes of clinical significance: no changes noted
[2019-12-21] MEDS ORDERED: ePHEDrine sulfate 50 MG/ML AMP IV PRN (16:13)
[2019-12-21] MEDS ORDERED: ONDANSETRON INJ 2 MG/ML 2 ML VIAL IV PRN (16:13)
[2019-12-21] MEDS ORDERED: fentaNYL citrate 100 MCG/2 ML VIAL IV PRN (16:13)
[2019-12-21] MEDS ORDERED: HYDROmorphone INJ 2 MG/ML SYR/VIAL IV PRN (16:13)
[2019-12-21] MEDS ORDERED: PROMETHAZINE HCL 12.5 MG in SODIUM CHLORIDE 0.9% 50 ML IV PRN (16:13)
[2019-12-21] MEDS ORDERED: ATROPINE SULFATE 0.1 MG/ML 10ML SYR IV PRN (16:13)
[2019-12-21] MEDS ORDERED: BUPIVACAINE 0.5 % 5 MG/1 ML PF 10ML VIAL ONE (16:15)
[2019-12-21] MEDS ORDERED: fentaNYL citrate 100 MCG/2 ML VIAL ONE (16:26)
[2019-12-21] MEDS ORDERED: MIDAZOLAM HCL 1 MG/ML 2ML VIAL ONE ×2 (16:26)
[2019-12-21] MEDS ORDERED: EPINEPHrine INJ 1 MG/ML AMP ONE (16:29)
[2019-12-21] MEDS ORDERED: BUPIVACAINE 0.5 % 5 MG/1 ML MPF 30ML VIAL ONE (16:29)
--- NOTE | 2019-12-21 16:38 | Progress Notes ---
DATE: 12/21/2019 SUBJECTIVE: 79-year-old white female with a history of multiple comorbidities and multiple cancers in the past, admitted with left thigh pain and femoral shaft stress fracture. We are just kind of waiting for an OR room now. No change in symptoms. Denies any chest pain or shortness of breath. OBJECTIVE: VITAL SIGNS: Temperature 37.0. Vital signs stable. GENERAL: Shows a pleasant elderly female. She is lying in bed, looks pretty comfortable. EXTREMITIES: Examination of the left leg reveals a pain patch to be in place. Leg is well aligned. Leg lengths are equal. She is neurologically intact. Thigh is soft and supple. No palpable masses. LABORATORY DATA: Hemoglobin 12.5. Hematocrit 37.4. Electrolytes are stable. ASSESSMENT: 79-year-old white female admitted with a left femoral diaphyseal stress fracture. We discussed treatment options and she would like to proceed with surgical treatment. Her pain has been incapacitating lately and I do think there is a significant risk for fracture. Fortunately, there are no signs of metastatic disease. PLAN: 1. DVT prophylaxis including thigh-high TEDs, SCDs, and we will use aspirin postoperatively. 2. Left femoral diaphyseal stress fracture. Plan is for fixation today. We will use a long troch nail. 3. Medical management as per the medicine service. 4. Disposition: Hopefully she will be able to be discharged to home once her femur is fixed. We will see how she does in rehab.
[2019-12-21] MEDS ORDERED: CEFAZOLIN 2,000 MG/15 ML IV PUSH IV ONE (17:02)
[2019-12-21] MEDS ORDERED: CEFAZOLIN 2000MG 2,000 MG/15 ML SYR IV ONE (17:04)
[2019-12-21] MEDS ORDERED: ePHEDrine sulfate 50 MG/ML SYR ONE (17:22)
[2019-12-21] MEDS ORDERED: PROPOFOL IV EMULSION 10 MG/ML 20 ML VIAL IV ONE (17:22)
[2019-12-21] MEDS ORDERED: PHENYLEPHRINE 100MCG/ML 5ML SYR ONE (17:22)
[2019-12-21] MEDS ORDERED: LIDOCAINE HCL 2% 2 ML VIAL/AMP(20MG/ML) INFIL ONE (17:22)
--- NOTE | 2019-12-21 18:42 | Operative Report ---
Post Operative Report Pre & Post Diagnosis Operation Date: 12/21/19 10:45 Pre-Op Diagnosis: Stress Fracture of Left Femur Post-Op Diagnosis: Stress Fracture of Left Femur I identified the patient and participated in the time-out.: Yes Procedure Operation Date: 12/21/19 10:45 Actual Procedures p Left Femur Intramedullary Nail(Left) - Toy Paez MD Surgeon Toy Paez MD Diesel Truck Technician Mayra, PAC Estimated Blood Loss 200 Findings Consistent with Post-Op Diagnosis Specimens None. Drains None. Anesthesia Type Spinal MAC Complications none Disposition Accompanied Patient To Recovery: Yes Disposition: Recovery Room Indications Patient is a 79-year-old female with multiple medical comorbidities who is had a several month history of left thigh pain discomfort. Is gotten significant worse over the past 2 weeks where she is having difficulty weightbearing at all. X-rays suggested a stress fracture. We did get an MRI due to her history of multiple cancers and there was no signs of metastatic disease. Look like a stress fracture. The patient indicated for treatment with IM nailing. She was unable to ambulate due to the pain. Description of Procedure Operative implants consist of: 1. Synthes left 360 mm x 11 mm long trochanteric nail. 2. Synthes size 95 helical blade. 3. 5 mm x 52 mm distal interlocking screw. Patient was taken to the operating room identified and placed on the operating table supine position protectors were properly padded. IV antibiotics arrived by anesthesia team. A spinal anesthetic and been implemented in the holding area. Steven catheter was placed in sterile fashion. The patient then placed on the fracture table. The left leg was placed in boot traction the right leg was placed in a well leg hubbard. X-ray was brought in to make sure we can get adequate radiographs. The left hip was then scrubbed with Hibiclens and prepped with ChloraPrep and draped in usual sterile fashion. A curvilinear incision was made just proximal to the tip of the greater trochanter. Sharp dissection was carried through subcutaneous tissue down to the level gluteal fascia. It was a fairly thick soft tissue envelope. I made an incision in the gluteal fascia. A guidewire was then placed just lateral to the tip of the greater trochanter and in line with the IM canal on both the AP and lateral planes. This advanced down the IM canal and verified fluoroscopically. This is overreamed with a 17 mm reamer. The guidewire was then removed and a bucket tipped guidewire was exchanged. We measured for nail length and 360 mm nail was selected. I then overreamed the reaming juan carlos beginning with a size 10 mm reamer and reaming up to 12.5 and half millimeter in crements. We did reamed the proximal segment with a 17 mm reamer to make sure we did not damage the proximal femur. 360 mm x 11 mm left long trochanteric nail was then placed over the guidewire. Was tapped into position. A lateral aiming arm was attached. A stab incision was made in the lateral aiming arm was advanced to the lateral left femur cortex. We placed a guidewire in the central aspect of the femoral head and neck in both AP and lateral planes. It was slightly anterior but we elected to except this rather intrarenal new holes. It measured a 95 mm helical blade. The cortical drill was used to breach the cortex and the triple reamer was set at 95 and overreamed the guidewire. A 95 mm helical blade was then placed over the guidewire and tapped into position. The proximal setscrew was tightened. The aiming arm was removed and some final x-rays were obtained. Attention drawn toward distal interlocking. Using the perfect iroquois technique I placed a distal interlocking screw in the dynamic slot but used in a static fashion. Stab incision was made under fluoroscopic guidance and the drill was then used to drill a hole in a 5.0 mm distal interlocking screw was placed in the static position. It was checked fluoroscopically. Attention drawn toward closing. All wounds irrigated with copious normal saline. I did inject locally with 30 cc of half percent Marcaine with epinephrine. The gluteal fascia was then closed with #1 Vicryl suture running fashion for the subcutaneous tissues of the proximal wound were closed with a #1 Vicryl suture in a buried interrupted fashion for the subcutaneous tissues of all all wounds were then closed with 2-0 Dexon suture in a buried interrupted fashion. Skin was closed skin rolanda. Leg was then cleaned dried a sterile dressing composed Xeroform, 4 by fours , ABD pad, foam tape was applied. The patient then placed taken off the fracture table and transferred to the recovery room in stable condition. Patient tolerat ed the procedure well and there are no complications. Richi Nunez, my physician social worker assistant, was present for the entire procedure. His assistance was critical and essential for replacing the Steven catheter, positioning the patient, prepping and draping, surgical exposure, performing the technical aspects of the operation, placement of the IM nail, closing the wound, and placing the sterile bandage. I attest to the content of the Intraoperative Record and any orders documented therein. Any exceptions are noted below.
[2019-12-21] MEDS ORDERED: MEPERIDINE HCL 25 MG/ML CARP/VIAL ONE (18:45)
[2019-12-21] MEDS ORDERED: MEPERIDINE HCL 25 MG/ML CARP/VIAL IV ONE ×2 (18:54→19:23)
--- NOTE | 2019-12-21 18:55 | Anesthesiology Progress Note ---
Date of Service December 21, 2019 Anesthesia Post Procedure Vital Signs Vital Signs: Temp Pulse Pulse Pulse Resp BP Pulse Ox 12/21/19 18:45 72 16 154/69 H 97 12/21/19 18:35 74 16 130/77 97 12/21/19 18:25 36.7 C 75 25 H 113/57 L 97 12/21/19 14:11 37.0 C 65 18 185/85 H 96 12/21/19 11:32 36.6 C 66 18 144/84 H 97 12/21/19 10:00 61 12/21/19 07:15 36.6 C 67 18 176/83 H 96 12/21/19 04:02 36.7 C 66 20 130/78 93 12/21/19 00:03 36.9 C 69 20 155/83 H 95 12/20/19 23:30 71 12/20/19 19:32 36.6 C 72 20 159/76 H 95 Pain Intensity Left Leg: Pain Intensity: 0 Transfer of Care Handoff Completed per policy Notes Mental Status: alert / awake / arousable and participated in evaluation Patient Amnestic to Procedure: Yes Nausea / Vomiting: adequately controlled Pain: adequately controlled Airway Patency, RR, SpO2: stable & adequate BP & HR: stable & adequate Hydration State: stable & adequate Anesthetic Complications: no major complications apparent and Pt Satisfied with anesthetic care
--- NOTE | 2019-12-21 19:04 | Fluoroscopy Report ---
FL hip LT 2-3V HISTORY: 79 years-old Female LT IM NAIL acute fracture of the left hip COMPARISON: Left femur radiographs 12/19/2019 TECHNIQUE: 4 spot fluoroscopic images of the left hip were obtained utilizing 92.8 seconds fluoroscop y time FINDINGS: Status post placement of an intratrochanteric nail with elongated medullary juan carlos and distal cannulated screw. The hardware appears intact. Healing stress fracture involving the lateral cortex of the mid femoral diaphysis redemonstrated. Satisfactory alignment. Moderate left hip osteoarthritis. Expected postsurgical soft tissue swelling and deep tissue air. IMPRESSION: Fluoroscopic assistance as above. Please see operative report for further details. ACT 112: Negative or not required by law. The above report was generated using voice recognition software. It may contain grammatical, syntax o r spelling errors. Electronically signed by: Chidi Bagley M.D. 12/21/2019 7:03 PM
[2019-12-21] MEDS ORDERED: bisacodyL 10 MG SUPP PR PRN (19:12)
[2019-12-21] MEDS ORDERED: ALBUTEROL HFA 8 GM INHALER INH PRN (19:12)
[2019-12-21] MEDS ORDERED: FLUTICASONE PROPIONATE NA SPR 16 GM BTL NAE PRN (19:12)
[2019-12-21] MEDS ORDERED: LORazepam 0.5 MG TAB PO PRN (19:12)
[2019-12-21] MEDS ORDERED: MAGNESIUM HYDROXIDE SUSP 30 ML UDC PO PRN (19:12)
[2019-12-21] MEDS ORDERED: PROCHLORPERAZINE MALEATE 10 MG TAB PO PRN (19:12)
[2019-12-21] MEDS ORDERED: COLCHICINE 0.6 MG TAB PO PRN (19:12)
[2019-12-21] MEDS ORDERED: HYDROmorphone INJ 0.5 MG/0.5 ML SYR IV PRN (19:12)
[2019-12-21] MEDS ORDERED: METOCLOPRAMIDE HCL INJ 5 MG/ML 2 ML VIAL IV PRN (19:12)
[2019-12-21] MEDS ORDERED: NALOXONE HCL 0.4 MG/1 ML VIAL/CARP IV PRN (19:12)
[2019-12-21] MEDS ORDERED: OXYCODONE HCL IR 5 MG TAB (IMMEDIATE RELEASE) PO PRN (19:12)
[2019-12-21] MEDS ORDERED: ALUMINUM/MAGNESIUM SUSP 30 ML UDC PO PRN (19:12)
[2019-12-21] MEDS ORDERED: ONDANSETRON 8MG OD TAB PO PRN (19:12)
[2019-12-21] MEDS ORDERED: PHARMACY GLYCEMIC MGMT CONSULT PRN (19:43)
[2019-12-21] MEDS: SODIUM CHLORIDE 0.9% 1000ML 1,000 ML IV SCH (20:00)
[2019-12-21] MEDS: ONDANSETRON INJ 2 MG/ML 2 ML VIAL IV PRN (20:07)
[2019-12-21] MEDS: LIDOCAINE 5% 1 PATCH TD SCH (21:09)
[2019-12-21] MEDS: SENNA 8.6 MG TAB PO SCH (21:12)
[2019-12-21] MEDS: POTASSIUM CHLORIDE 10 MEQ TABCR PO SCH (21:13)
[2019-12-21] MEDS: ACETAMINOPHEN 500 MG TAB PO SCH (21:13)
[2019-12-21] MEDS: NYSTATIN POWDER 15GM BTL EXT SCH (21:13)
[2019-12-21] MEDS: DOCUSATE SODIUM 100 MG CAP PO SCH (21:13)
[2019-12-21] MEDS: MAGNESIUM CHLORIDE 64MG DELAYED REL TAB PO SCH (21:13)
[2019-12-22] MEDS: KETOROLAC TROMETHAMINE 15 MG/ML VIAL IV SCH ×5 (01:06→23:19)
[2019-12-22] MEDS: CEFAZOLIN 2000MG 2,000 MG/15 ML SYR IV SCH ×2 (02:26→10:22)
[2019-12-22] MEDS: ACETAMINOPHEN 500 MG TAB PO SCH ×3 (05:44→21:01)
[2019-12-22] MEDS: SODIUM CHLORIDE 0.9% 1000ML 1,000 ML IV SCH (05:48)
[2019-12-22 07:28] LABS: Basophils # (auto) 0.01 K/uL (0-0.2); Basophils % (auto) 0.1 %; Eosinophils # (auto) 0.13 K/uL (0-0.5); Eosinophils % (auto) 1.7 %; Hematocrit (blood only) 35.1 % (37-47); Hemoglobin 11.8 g/dL (12.0-16.0); Immature Granulocytes # (auto) 0.01 K/uL (0.00-0.02); Immature Granulocytes % (auto) 0.1 %; Lymphocytes # (auto) 1.16 K/uL (1.2-3.4); Lymphocytes % (auto) 15.5 %; Mean Corpuscular Hgb Conc 33.6 g/dL (32-36); Mean Corpuscular Volume 92.1 fL (80-100); Mean Platelet Volume 11.4 fL (7.4-10.4); Monocytes # (auto) 0.55 K/uL (0.11-0.59); Monocytes % (auto) 7.4 %; Neutrophils # (auto) 5.62 K/uL (1.4-6.5); Neutrophils % (auto) 75.2 %; Platelet Count 144 K/uL (130-400); RDW Coefficient of Variation 14.2 % (11.5-14.5); RDW Standard Deviation 47.9 fL (36.4-46.3); Red Blood Count 3.81 M/uL (4.2-5.4); White Blood Count 7.48 K/uL (4.8-10.8)
--- NOTE | 2019-12-22 07:47 | Pharmacy Report ---
Glycemic Ortho Sign Off Note - Date of Service December 22, 2019 - Scope Glycemic Pharmacist consulted for glycemic control and to write orders per [facility] inpatient glycemic control protocol. - Objective Accuchecks BSG (last 24hrs):: 12/21/19 12/21/19 12/21/19 07:10 11:47 20:09 Glucose 80 POC Glucose 82 83 12/22/19 12/22/19 04:24 07:34 Glucose POC Glucose 96 107 H - Assessment * Pt is maintained on oral antidiabeticagent[s]as anoutpatient with excellent control per recent A1c * Oral agents are not recommended for inpatient use d/t drug interactions, changing PO intake, and difficulty titrating for acute hyper/hypoglycemia. * Recommended regimen for inpatient use is SQ insulin * Low stress weight based insulin dosing appropriate since patient has minimal risk factors for insulin resistance (i.e. no steroids). * Appropriate to DC insulin at discharge * Goal is to maintain BSGs <200 mg/dl (ideally <150 mg/dl) to prevent post op complications - Plan For Inpatient Glycemic Control * Basal insulin * Not needed based on A1c, pre-op BSGs, and minimal risk factors for insulin resistance * Bolus insulin * Utilize low stress weight based NovoLog parameters per scale ACHS - no carb coverage necessary * Pharmacy has entered glycemic orders and is signing off of the glycemic consult. We will no longer be making adjustments to inpatient regimen. Please feel free to re-consult if needed. Thank you.
[2019-12-22] MEDS: FERROUS GLUCONATE 324 MG TAB PO SCH ×2 (07:54→17:09)
[2019-12-22] MEDS: INSULIN ASPART 100 UNITS/ML 3 ML PEN SC SCH ×4 (07:54→21:02)
[2019-12-22] MEDS: ASCORBIC ACID 500 MG TAB PO SCH ×2 (07:55→17:09)
[2019-12-22] MEDS: CHOLECALCIFEROL 1,000 UNITS 25 MCG TAB PO SCH (07:55)
[2019-12-22] MEDS: LORATADINE 10 MG TAB PO SCH (07:56)
[2019-12-22] MEDS: DOCUSATE SODIUM 100 MG CAP PO SCH ×2 (07:56→21:00)
[2019-12-22] MEDS: SPIRONOLACTONE 25 MG TAB PO SCH (07:56)
[2019-12-22] MEDS: MULTIVITAMIN TAB PO SCH (07:56)
[2019-12-22] MEDS: ATORVASTATIN 20 MG TAB PO SCH (07:56)
[2019-12-22] MEDS: NYSTATIN POWDER 15GM BTL EXT SCH ×3 (07:56→21:02)
[2019-12-22] MEDS: AMLODIPINE BESYLATE 5 MG TAB PO SCH (07:56)
[2019-12-22] MEDS: METOPROLOL SUCC 50MG EXT REL TAB PO SCH (07:56)
[2019-12-22] MEDS: POTASSIUM CHLORIDE 10 MEQ TABCR PO SCH ×3 (07:56→21:01)
[2019-12-22] MEDS: MAGNESIUM CHLORIDE 64MG DELAYED REL TAB PO SCH ×2 (07:57→21:01)
[2019-12-22] MEDS: lisinopriL 20 MG TAB PO SCH (07:57)
[2019-12-22] MEDS: OSIMERTINIB MESYLATE 80 MG PO SCH (07:57)
[2019-12-22 08:02] LABS: BUN Creatinine Ratio 13.9 (10-20); Calcium 8.1 mg/dl (8.5-10.1); Creatinine Clr Calc Pharmacy 57.4 ml/min; Est GFR (African American) 75.5; Est GFR (Non-African American) 65.2; Magnesium 1.8 mg/dl (1.8-2.4); Potassium 3.2 mmol/L (3.5-5.1)
--- NOTE | 2019-12-22 08:10 | Progress Notes ---
DATE: 12/22/2019 SUBJECTIVE: A 79-year-old white female postop day 1 from IM nailing of a left femoral diaphyseal stress fracture. She is doing pretty well this morning. Pain is controlled while lying in bed. No chest pain or shortness of breath. No new complaints. OBJECTIVE: VITAL SIGNS: Temperature 36.7. Vital signs stable. GENERAL: Shows a pleasant elderly female. She is lying in bed, looks comfortable. EXTREMITIES: Examination of the left leg reveals the dressing to be clean, dry and intact. Leg is well aligned. She can dorsiflex and plantarflex her foot appropriately. She is neurologically intact. ASSESSMENT: A 79-year-old white female postop day 1 from IM nailing of a left femoral diaphyseal stress fracture, doing pretty well. Pain is controlled. She is neurologically intact. PLAN: 1. DVT prophylaxis including thigh-high TEDs, SCDs, and aspirin 81 mg twice a day for 6 weeks. 2. PT/OT. She can weightbear as tolerated on left lower extremity. 3. Pain control, doing okay with current pain regimen. 4. Medical management as per the medicine service. 5. Disposition: She is orthopedically okay for discharge any time medically stable. I need to see her back between 2 and 3 weeks from surgery. She can weightbear as tolerated.
[2019-12-22] MEDS ORDERED: POTASSIUM CHLORIDE 20 MEQ TABCR PO STA (08:39)
[2019-12-22] MEDS ORDERED: OSIMERTINIB 80 MG PO SCH (09:00)
[2019-12-22] MEDS: ONDANSETRON INJ 2 MG/ML 2 ML VIAL IV PRN ×2 (11:22→17:36)
--- NOTE | 2019-12-22 14:16 | Hospitalist Progress Note ---
Date of Service December 22, 2019 Assessment & Plan (1) Stress fracture of left femur: MRI of the left hip did show healing stress fracture involving the lateral cortex of the mid femoral diaphysis Appreciate Ortho input and recommendation Will have it left femur intramedullary nail placement today 12/21/2019 Has been complaining of minimal pain and getting PT and OT Will need to have rehab placement (2) Acute leg pain: Left upper leg pain Follow official hip/pelvic x-ray results, add plain x-ray of left femur Orthopedics consult Re: Left upper leg pain X-ray concerning for stress fracture, orthopedics recommend MRI with contrast Gave additional of 500 cc of normal saline prior to contrast Currently creatinine normalized MRI reviewed by Ortho, recommend left femur intramedullary nail, plan for tomorrow December 20 (3) Asymptomatic hypertensive urgency: Secondary to left upper leg pain, NSAID intake Etiology to be determined Blood pressure remains stable Denies any symptoms ARF Noted to have increasing creatinine of 1.25 on admission Secondary to dehydration and contributed by use of NSAID use Received cautious amount of IV fluid and oral fluid Kidney function has been normalized Paroxysmal AFib, patient NSR No acute symptoms DM2 diet controlled, well-controlled as of recent outpatient hemoglobin A1c of 5.6% November 2019 ISS BG goal [id number] Bilateral buttock and sacral decubiti of stage I Decubiti wounds, no gross infection as per wound care center consultant nurse consult Re: decubiti wounds Hx BRCA gene mutation Recurrent NSCLC status post surgery ongoing Osimertinib tx Hx breast cancer, L sp surgery and chemotherapy Uterine cancer sp surgery/chemotx No acute symptoms Stool C. difficile Replace electrolytes DVT prophylaxis. Heparin subcu Full code Medically stable Will need rehab placement on discharge Admission and Anticipated Discharge Date Admission Date: December 21, 2019 Subjective 12/21/2019 The patient was seen and examined in medical telemetry unit She has been complaining of left hip pain Denies any headache, numbness or tingling involving any of the extremities 12/22/2019 The patient was seen and examined in medical telemetry unit She has been complaining of minimal pain in the left lower extremity with movement Denies any other symptoms Review of Systems Review of Systems: All systems reviewed and are unremarkable except as noted below Musculoskeletal: Left hip pain with movement Physical Exam Physical Exam: Lying on bed without any acute distress Constitutional: well developed, well nourished and average body habitus; no acute distress and not ill appearing Eyes: PERRL, conjunctivae normal, anicteric sclerae ENMT: external ear and nose normal, oropharynx normal Neck: trachea midline, no thyromegaly Respiratory: normal respiratory effort; no respiratory distress Auscultation: lungs clear to auscultation bilaterally Cardiovascular: Rate/Rhythm: regular rate and regular rhythm Heart Sounds: no murmur Gastrointestinal (Abdomen): Inspection/Auscultation: abdomen normal to inspection and normal bowel sounds; abdomen not distended Percussion/Palpation: abdomen soft; abdomen nontender Musculoskeletal: Pain with movement of the left lower extremity Skin: Bilateral arm buttock pressure sores, stage I Neurologic: moves all extremities; no focal motor deficits Results & Data Results & Data ([facility]) Vital Signs (Past 12 Hours) Vital Signs Temp Pulse Pulse Resp BP BP Pulse Ox 12/22/19 11:28 36.9 C 75 18 148/69 H 93 12/22/19 07:26 75 12/22/19 07:00 36.9 C 71 18 137/77 95 12/22/19 03:10 36.7 C 75 20 144/80 H 96 Laboratory Results Short CBC 12/22/19 Range/Units 06:48 WBC 7.48 (4.8-10.8) K/uL Hgb 11.8 L (12.0-16.0) g/dL Hct 35.1 L (37-47) % Plt Count 144 (130-400) K/uL BMP 12/22/19 06:48 Sodium 139 Potassium 3.2 L D Chloride 108 H Carbon Dioxide 24 BUN 12 Creatinine 0.85 D Glucose 117 H Calcium 8.1 L Medications Administered Current Inpatient Medications Acetaminophen (Acetaminophen 500 Mg Tab) 1,000 mg PO Q6H PRN PRN Reason: Pain Stop: 01/19/20 09:48 Last Admin: 12/20/19 23:50 Dose: 1,000 mg Documented by: Acetaminophen (Acetaminophen 500 Mg Tab) 1,000 mg PO Q8 BERNARDA Stop: 01/20/20 21:59 Last Admin: 12/22/19 13:09 Dose: 1,000 mg Documented by: Al Hydrox/Mg Hydrox/Simethicone (Aluminum/Magnesium Susp 30 Ml Udc) 15 ml PO Q4H PRN PRN Reason: Heartburn Stop: 01/20/20 19:11 Albuterol (Albuterol Hfa 8 Gm Inhaler) 2 puffs INH QID PRN PRN Reason: Shortness Of Breath Stop: 01/20/20 19:11 Amlodipine Besylate (Amlodipine Besylate 5 Mg Tab) 10 mg PO QAM [facility] Stop: 01/19/20 08:59 Last Admin: 12/22/19 07:56 Dose: 10 mg Documented by: Ascorbic Acid (Ascorbic Acid 500 Mg Tab) 500 mg PO BIDM [facility] Stop: 01/21/20 07:59 Last Admin: 12/22/19 07:55 Dose: 500 mg Documented by: Atorvastatin Calcium (Atorvastatin 20 Mg Tab) 20 mg PO QAM [facility] Stop: 01/19/20 08:59 Last Admin: 12/22/19 07:56 Dose: 20 mg Documented by: Bisacodyl (Bisacodyl 10 Mg Supp) 10 mg ID DAILY PRN PRN Reason: Constipation Stop: 01/20/20 19:11 Colchicine (Colchicine 0.6 Mg Tab) 0.6 mg PO BID PRN PRN Reason: GOUT Stop: 01/20/20 19:11 Dextrose (Dextrose 50% 50 Ml Syringe) 25 - 50 ml IV UD PRN; Protocol PRN Reason: Hypoglycemia Protocol Stop: 01/19/20 00:38 Docusate Sodium (Docusate Sodium 100 Mg Cap) 100 mg PO BID [facility] Stop: 01/20/20 20:59 Last Admin: 12/22/19 07:56 Dose: 100 mg Documented by: Ferrous Gluconate (Ferrous Gluconate 324 Mg Tab) 324 mg PO BIDM [facility] Stop: 01/21/20 07:59 Last Admin: 12/22/19 07:54 Dose: 324 mg Documented by: Fluticasone Propionate (Fluticasone Propionate Na Spr 16 Gm Btl) 2 sprays DEVORA DAILY PRN PRN Reason: Congestion Stop: 01/20/20 19:11 Glucagon (Glucagon For Inj 1 Mg Vial) 1 mg SQ UD PRN; Protocol PRN Reason: Hypoglycemia Protocol Stop: 01/19/20 00:38 Glucose (Glucose 10 Tabs/Tube) 4 - 8 tabs PO UD PRN; Protocol PRN Reason: Hypoglycemia Protocol Stop: 01/19/20 00:38 Glucose (Glucose 40% Gel 15 Gm Tube) 15 - 30 gm PO UD PRN; Protocol PRN Reason: Hypoglycemia Protocol Stop: 01/19/20 00:38 Heparin Sodium (Beef Lung) (Heparin 10 Unit/Ml 5 Ml Flush) 5 ml FLUSH PRN PRN PRN Reason: Flush Stop: 01/21/20 10:45 Hydromorphone HCl (Hydromorphone Hcl 2 Mg Tab) 2 mg PO QID PRN PRN Reason: Pain Stop: 01/03/20 00:38 Hydromorphone HCl (Hydromorphone Inj 0.5 Mg/0.5 Ml Syr) 0.5 mg IV Q4H PRN PRN Reason: Pain or Pre PT Stop: 01/04/20 19:11 Promethazine HCl 12.5 mg/ (Sodium Chloride) 50.5 mls @ 202 mls/hr IV Q6H PRN PRN Reason: Nausea And Vomiting Stop: 01/19/20 00:38 Insulin Aspart (Insulin Aspart 100 Units/Ml 3 Ml Pen) 0 units SC ACHS BERNARDA Stop: 01/19/20 00:38 Last Admin: 12/22/19 11:44 Dose: Not Given Documented by: Ketorolac Tromethamine (Ketorolac Tromethamine 15 Mg/Ml Vial) 15 mg IV Q6 [facility] Stop: 12/23/19 18:01 Last Admin: 12/22/19 11:11 Dose: 15 mg Documented by: Lidocaine (Lidocaine 5% 1 Patch) 1 patch TD DAILY@1999 [facility] Stop: 01/19/20 19:59 Last Admin: 12/21/19 21:09 Dose: 1 patch Documented by: Lisinopril (Lisinopril 20 Mg Tab) 20 mg PO QAM [facility] Stop: 01/21/20 08:59 Last Admin: 12/22/19 07:57 Dose: 20 mg Documented by: Loratadine (Loratadine 10 Mg Tab) 10 mg PO DAILY [facility] Stop: 01/19/20 08:59 Last Admin: 12/22/19 07:56 Dose: 10 mg Documented by: Lorazepam (Lorazepam 0.5 Mg Tab) 0.5 mg PO DAILY PRN PRN Reason: Anxiety Stop: 01/20/20 19:11 Magnesium Chloride (Magnesium Chloride 64mg Delayed Rel Tab) 64 mg PO BID [facility] Stop: 01/20/20 20:59 Last Admin: 12/22/19 07:57 Dose: 64 mg Documented by: Magnesium Hydroxide (Magnesium Hydroxide Susp 30 Ml Udc) 30 ml PO Q6H PRN PRN Reason: Constipation Stop: 01/20/20 19:11 Metoclopramide HCl (Metoclopramide Hcl Inj 5 Mg/Ml 2 Ml Vial) 10 mg IV Q6H PRN PRN Reason: Nausea And Vomiting Stop: 01/20/20 19:11 Metoprolol Succinate (Metoprolol Succ 50mg Ext Rel Tab) 50 mg PO QAM [facility] Stop: 01/19/20 08:59 Last Admin: 12/22/19 07:56 Dose: 50 mg Documented by: Miscellaneous (Carbohydrates For Hypoglycemia ) 15 - 30 gm PO UD PRN PRN Reason: Hypoglycemia Protocol Stop: 01/19/20 00:38 Miscellaneous (Remove Lidoderm Patch) 1 ea N/A DAILY@0800 [facility] Stop: 01/19/20 07:59 Last Admin: 12/22/19 07:54 Dose: 1 ea Documented by: [facility]ivitamins ([facility]itamin Tab) [facility] [place]: 01/21/20 08:59 Last Admin: 12/22/19 07:56 Dose: 1 tab Documented by: Naloxone HCl (Naloxone Hcl 0.4 Mg/1 Ml Vial/Carp) 0.1 mg IV Q5M PRN PRN Reason: Oversedation/Resp Depression Stop: 01/20/20 19:11 Nystatin (Nystatin Powder 15gm Btl) 1 appln EXT TID [facility] Stop: 01/20/20 20:59 Last Admin: 12/22/19 13:09 Dose: 1 appln Documented by: Ondansetron HCl (Ondansetron 8mg Od Tab) 8 mg PO Q8H PRN PRN Reason: Nausea Ondansetron HCl (Ondansetron Inj 2 Mg/Ml 2 Ml Vial) 4 mg IV Q6H PRN PRN Reason: Nausea And Vomiting Stop: 01/20/20 19:11 Last Admin: 12/22/19 11:22 Dose: 4 mg Documented by: Osimertinib (Osimertinib Mesylate 80 Mg) 1 ea PO DAILY [facility] Stop: 01/19/20 15:59 Last Admin: 12/22/19 07:57 Dose: 1 ea Documented by: Oxycodone HCl (Oxycodone Hcl Ir 5 Mg Tab (Immediate Release)) 5 - 10 mg PO Q6H PRN PRN Reason: Pain or Pre PT Stop: 01/04/20 19:11 Potassium Chloride (Potassium Chloride 10 Meq Tabcr) 10 meq PO TID [facility] Stop: 01/20/20 20:59 Last Admin: 12/22/19 13:09 Dose: 10 meq Documented by: Prochlorperazine (Prochlorperazine Maleate 10 Mg Tab) 10 mg PO Q6H PRN PRN Reason: Nausea Stop: 01/20/20 19:11 Sennosides (Senna 8.6 Mg Tab) 17.2 mg PO HS [facility] Stop: 01/20/20 20:59 Last Admin: 12/21/19 21:12 Dose: 17.2 mg Documented by: Spironolactone (Spironolactone 25 Mg Tab) 12.5 mg PO SuMoWeThFr@0900 [facility] Stop: 01/21/20 08:59 Last Admin: 12/22/19 07:56 Dose: 12.5 mg Documented by: Tizanidine HCl (Tizanidine Hcl 4 Mg Tablet) 4 mg PO TID PRN PRN Reason: MUSCLE SPASMS Stop: 01/19/20 00:38 Vitamin D (Cholecalciferol 1,000 Units 25 Mcg Tab) 2,000 units PO QAM [facility] Stop: 01/21/20 08:59 Last Admin: 12/22/19 07:55 Dose: 2,000 units Documented by: (1) Acute leg pain Laterality: left Qualified Code(s): M79.605 - Pain in left leg
[2019-12-22] MEDS: LIDOCAINE 5% 1 PATCH TD SCH (21:00)
[2019-12-22] MEDS: SENNA 8.6 MG TAB PO SCH (21:01)
[2019-12-23] MEDS: KETOROLAC TROMETHAMINE 15 MG/ML VIAL IV SCH ×3 (05:57→17:30)
[2019-12-23] MEDS: ACETAMINOPHEN 500 MG TAB PO SCH ×3 (05:57→21:48)
[2019-12-23] MEDS: INSULIN ASPART 100 UNITS/ML 3 ML PEN SC SCH ×4 (08:31→20:50)
[2019-12-23] MEDS: OSIMERTINIB MESYLATE 80 MG PO SCH (08:32)
[2019-12-23] MEDS: FERROUS GLUCONATE 324 MG TAB PO SCH ×2 (08:32→17:25)
[2019-12-23] MEDS: CHOLECALCIFEROL 1,000 UNITS 25 MCG TAB PO SCH (08:32)
[2019-12-23] MEDS: ASCORBIC ACID 500 MG TAB PO SCH ×2 (08:33→17:25)
[2019-12-23] MEDS: SPIRONOLACTONE 25 MG TAB PO SCH (08:33)
[2019-12-23] MEDS: AMLODIPINE BESYLATE 5 MG TAB PO SCH (08:33)
[2019-12-23] MEDS: MAGNESIUM CHLORIDE 64MG DELAYED REL TAB PO SCH ×2 (08:33→21:49)
[2019-12-23] MEDS: DOCUSATE SODIUM 100 MG CAP PO SCH ×2 (08:33→21:49)
[2019-12-23] MEDS: MULTIVITAMIN TAB PO SCH (08:33)
[2019-12-23] MEDS: METOPROLOL SUCC 50MG EXT REL TAB PO SCH (08:33)
[2019-12-23] MEDS: LORATADINE 10 MG TAB PO SCH (08:33)
[2019-12-23] MEDS: lisinopriL 20 MG TAB PO SCH (08:33)
[2019-12-23] MEDS: ATORVASTATIN 20 MG TAB PO SCH (08:33)
[2019-12-23] MEDS: POTASSIUM CHLORIDE 10 MEQ TABCR PO SCH ×3 (08:33→21:48)
[2019-12-23] MEDS: NYSTATIN POWDER 15GM BTL EXT SCH ×3 (08:34→21:51)
[2019-12-23] MEDS ORDERED: POTASSIUM CHLORIDE 20 MEQ TABCR PO STA (14:23)
--- NOTE | 2019-12-23 14:24 | Hospitalist Progress Note ---
Date of Service December 23, 2019 Assessment & Plan (1) Stress fracture of left femur: MRI of the left hip did show healing stress fracture involving the lateral cortex of the mid femoral diaphysis Appreciate Ortho input and recommendation Will have it left femur intramedullary nail placement today 12/21/2019 Has been complaining of minimal pain and getting PT and OT Medically stable and awaiting placement (2) Acute leg pain: Left upper leg pain Follow official hip/pelvic x-ray results, add plain x-ray of left femur Orthopedics consult Re: Left upper leg pain X-ray concerning for stress fracture, orthopedics recommend MRI with contrast Gave additional of 500 cc of normal saline prior to contrast Currently creatinine normalized MRI reviewed by Ortho, recommend left femur intramedullary nail, plan for tomorrow December 20 As above (3) Asymptomatic hypertensive urgency: Secondary to left upper leg pain, NSAID intake Etiology to be determined Blood pressure remains stable Denies any symptoms Blood pressure is well controlled ARF Noted to have increasing creatinine of 1.25 on admission Secondary to dehydration and contributed by use of NSAID use Received cautious amount of IV fluid and oral fluid Kidney function has been normalized Paroxysmal AFib, patient NSR No acute symptoms DM2 diet controlled, well-controlled as of recent outpatient hemoglobin A1c of 5.6% November 2019 ISS BG goal [id number] Bilateral buttock and sacral decubiti of stage I Decubiti wounds, no gross infection as per personal care aide nurse consult Re: decubiti wounds Advised to avoid prolonged pressure over sacral area Hx BRCA gene mutation Recurrent NSCLC status post surgery ongoing Osimertinib tx Hx breast cancer, L sp surgery and chemotherapy Uterine cancer sp surgery/chemotx No acute symptoms Stool C. difficile Replace electrolytes DVT prophylaxis. Heparin subcu Full code Medically stable Will need rehab placement on discharge Admission and Anticipated Discharge Date Admission Date: December 21, 2019 Subjective 12/21/2019 The patient was seen and examined in medical telemetry unit She has been complaining of left hip pain Denies any headache, numbness or tingling involving any of the extremities 12/22/2019 The patient was seen and examined in medical telemetry unit She has been complaining of minimal pain in the left lower extremity with movement Denies any other symptoms 12/23/2019 The patient was seen and examined in the medical floor She remains stable Complains of minimal pain left lower extremity with movement Denies any headache and/or noted to have any high blood pressure Review of Systems Review of Systems: All systems reviewed and are unremarkable except as noted below Musculoskeletal: Left hip pain with movement Physical Exam Physical Exam: Lying on bed without any acute distress Constitutional: well developed, well nourished and average body habitus; no acute distress and not ill appearing Eyes: PERRL, conjunctivae normal, anicteric sclerae ENMT: external ear and nose normal, oropharynx normal Neck: trachea midline, no thyromegaly Respiratory: normal respiratory effort; no respiratory distress Auscultation: lungs clear to auscultation bilaterally Cardiovascular: Rate/Rhythm: regular rate and regular rhythm Heart Sounds: no murmur Gastrointestinal (Abdomen): Inspection/Auscultation: abdomen normal to inspection and normal bowel sounds; abdomen not distended Percussion/Palpation: abdomen soft; abdomen nontender Musculoskeletal: Left hip pain on movement with the left lower extremity Neurologic: moves all extremities; no focal motor deficits Lymphatic: no cervical or axillary lymphadenopathy Results & Data Results & Data ([facility]) Vital Signs (Past 12 Hours) Vital Signs Temp Pulse Resp BP BP Pulse Ox 12/23/19 12:05 36.8 C 75 18 143/84 H 92 12/23/19 07:21 36.9 C 76 16 138/79 94 12/23/19 03:43 36.6 C 77 18 150/79 H 94 Medications Administered Current Inpatient Medications Acetaminophen (Acetaminophen 500 Mg Tab) 1,000 mg PO Q6H PRN PRN Reason: Pain Stop: 01/19/20 09:48 Last Admin: 12/20/19 23:50 Dose: 1,000 mg Documented by: Acetaminophen (Acetaminophen 500 Mg Tab) 1,000 mg PO Q8 BERNARDA Stop: 01/20/20 21:59 Last Admin: 12/23/19 14:17 Dose: 1,000 mg Documented by: Al Hydrox/Mg Hydrox/Simethicone (Aluminum/Magnesium Susp 30 Ml Udc) 15 ml PO Q4H PRN PRN Reason: Heartburn Stop: 01/20/20 19:11 Albuterol (Albuterol Hfa 8 Gm Inhaler) 2 puffs INH QID PRN PRN Reason: Shortness Of Breath Stop: 01/20/20 19:11 Amlodipine Besylate (Amlodipine Besylate 5 Mg Tab) 10 mg PO QAM BERNARDA Stop: 01/19/20 08:59 Last Admin: 12/23/19 08:33 Dose: 10 mg Documented by: Ascorbic Acid (Ascorbic Acid 500 Mg Tab) 500 mg PO BIDM [facility], [facility]1983 Stop: 01/21/20 07:59 Last Admin: 12/23/19 08:33 Dose: 500 mg Documented by: Atorvastatin Calcium (Atorvastatin 20 Mg Tab) 20 mg PO QAM [facility]1983 Stop: 01/19/20 08:59 Last Admin: 12/23/19 08:33 Dose: 20 mg Documented by: Bisacodyl (Bisacodyl 10 Mg Supp) 10 mg WV DAILY PRN PRN Reason: Constipation Stop: 01/20/20 19:11 Colchicine (Colchicine 0.6 Mg Tab) 0.6 mg PO BID PRN PRN Reason: GOUT Stop: 01/20/20 19:11 Dextrose (Dextrose 50% 50 Ml Syringe) 25 - 50 ml IV UD PRN; Protocol PRN Reason: Hypoglycemia Protocol Stop: 01/19/20 00:38 Docusate Sodium (Docusate Sodium 100 Mg Cap) 100 mg PO BID [facility], [facility] Stop: 01/20/20 20:59 Last Admin: 12/23/19 08:33 Dose: 100 mg Documented by: Ferrous Gluconate (Ferrous Gluconate 324 Mg Tab) 324 mg PO BIDM [facility], [facility]1983 Stop: 01/21/20 07:59 Last Admin: 12/23/19 08:32 Dose: 324 mg Documented by: Fluticasone Propionate (Fluticasone Propionate Na Spr 16 Gm Btl) 2 sprays DEVORA DAILY PRN PRN Reason: Congestion Stop: 01/20/20 19:11 Glucagon (Glucagon For Inj 1 Mg Vial) 1 mg SQ UD PRN; Protocol PRN Reason: Hypoglycemia Protocol Stop: 01/19/20 00:38 Glucose (Glucose 10 Tabs/Tube) 4 - 8 tabs PO UD PRN; Protocol PRN Reason: Hypoglycemia Protocol Stop: 01/19/20 00:38 Glucose (Glucose 40% Gel 15 Gm Tube) 15 - 30 gm PO UD PRN; Protocol PRN Reason: Hypoglycemia Protocol Stop: 01/19/20 00:38 Heparin Sodium (Porcine) (Heparin 100 Unit/Ml 5ml Flush 5 Ml Syr) 5 ml IV PRN PRN PRN Reason: Flush Stop: 01/22/20 13:14 Last Admin: 12/23/19 12:25 Dose: 5 ml Documented by: Hydromorphone HCl (Hydromorphone Hcl 2 Mg Tab) 2 mg PO QID PRN PRN Reason: Pain Stop: 01/03/20 00:38 Hydromorphone HCl (Hydromorphone Inj 0.5 Mg/0.5 Ml Syr) 0.5 mg IV Q4H PRN PRN Reason: Pain or Pre PT Stop: 01/04/20 19:11 Last Admin: 12/22/19 15:50 Dose: 0.5 mg Documented by: Promethazine HCl 12.5 mg/ (Sodium Chloride) 50.5 mls @ 202 mls/hr IV Q6H PRN PRN Reason: Nausea And Vomiting Stop: 01/19/20 00:38 Insulin Aspart (Insulin Aspart 100 Units/Ml 3 Ml Pen) 0 units SC ACHS [facility], [facility] Stop: 01/19/20 00:38 Last Admin: 12/23/19 12:26 Dose: Not Given Documented by: Ketorolac Tromethamine (Ketorolac Tromethamine 15 Mg/Ml Vial) 15 mg IV Q6 [facility] Stop: 12/23/19 18:01 Last Admin: 12/23/19 12:25 Dose: 15 mg Documented by: Lidocaine (Lidocaine 5% 1 Patch) 1 patch TD DAILY@1999 [facility] Stop: 01/19/20 19:59 Last Admin: 12/22/19 21:00 Dose: 1 patch Documented by: Lisinopril (Lisinopril 20 Mg Tab) 20 mg PO QAM [facility] Stop: 01/21/20 08:59 Last Admin: 12/23/19 08:33 Dose: 20 mg Documented by: Loratadine (Loratadine 10 Mg Tab) 10 mg PO DAILY [facility] Stop: 01/19/20 08:59 Last Admin: 12/23/19 08:33 Dose: 10 mg Documented by: Lorazepam (Lorazepam 0.5 Mg Tab) 0.5 mg PO DAILY PRN PRN Reason: Anxiety Stop: 01/20/20 19:11 Magnesium Chloride (Magnesium Chloride 64mg Delayed Rel Tab) 64 mg PO BID [facility] Stop: 01/20/20 20:59 Last Admin: 12/23/19 08:33 Dose: 64 mg Documented by: Magnesium Hydroxide (Magnesium Hydroxide Susp 30 Ml Udc) 30 ml PO Q6H PRN PRN Reason: Constipation Stop: 01/20/20 19:11 Metoclopramide HCl (Metoclopramide Hcl Inj 5 Mg/Ml 2 Ml Vial) 10 mg IV Q6H PRN PRN Reason: Nausea And Vomiting Stop: 01/20/20 19:11 Metoprolol Succinate (Metoprolol Succ 50mg Ext Rel Tab) 50 mg PO QAM [facility] Stop: 01/19/20 08:59 Last Admin: 12/23/19 08:33 Dose: 50 mg Documented by: Miscellaneous (Carbohydrates For Hypoglycemia ) 15 - 30 gm PO UD PRN PRN Reason: Hypoglycemia Protocol Stop: 01/19/20 00:38 Miscellaneous (Remove Lidoderm Patch) 1 ea N/A DAILY@0800 [facility] Stop: 01/19/20 07:59 Last Admin: 12/23/19 08:33 Dose: 1 ea Documented by: Multivitamins ([facility]ivitamin Tab) [facility] [place] Stop: 01/21/20 08:59 Last Admin: 12/23/19 08:33 Dose: 1 tab Documented by: Naloxone HCl (Naloxone Hcl 0.4 Mg/1 Ml Vial/Carp) 0.1 mg IV Q5M PRN PRN Reason: Oversedation/Resp Depression Stop: 01/20/20 19:11 Nystatin (Nystatin Powder 15gm Btl) 1 appln EXT TID [facility] Stop: 01/20/20 20:59 Last Admin: 12/23/19 14:17 Dose: 1 appln Documented by: Ondansetron HCl (Ondansetron 8mg Od Tab) 8 mg PO Q8H PRN PRN Reason: Nausea Ondansetron HCl (Ondansetron Inj 2 Mg/Ml 2 Ml Vial) 4 mg IV Q6H PRN PRN Reason: Nausea And Vomiting Stop: 01/20/20 19:11 Last Admin: 12/22/19 17:36 Dose: 4 mg Documented by: Osimertinib (Osimertinib Mesylate 80 Mg) 1 ea PO DAILY [facility] Stop: 01/19/20 15:59 Last Admin: 12/23/19 08:32 Dose: 1 ea Documented by: Oxycodone HCl (Oxycodone Hcl Ir 5 Mg Tab (Immediate Release)) 5 - 10 mg PO Q6H PRN PRN Reason: Pain or Pre PT Stop: 01/04/20 19:11 Potassium Chloride (Potassium Chloride 10 Meq Tabcr) 10 meq PO TID [facility] Stop: 01/20/20 20:59 Last Admin: 12/23/19 14:17 Dose: 10 meq Documented by: Prochlorperazine (Prochlorperazine Maleate 10 Mg Tab) 10 mg PO Q6H PRN PRN Reason: Nausea Stop: 01/20/20 19:11 Sennosides (Senna 8.6 Mg Tab) 17.2 mg PO HS [facility] Stop: 01/20/20 20:59 Last Admin: 12/22/19 21:01 Dose: 17.2 mg Documented by: Spironolactone (Spironolactone 25 Mg Tab) 12.5 mg PO SuMoWeThFr@0900 [facility] Stop: 01/21/20 08:59 Last Admin: 12/23/19 08:33 Dose: 12.5 mg Documented by: Tizanidine HCl (Tizanidine Hcl 4 Mg Tablet) 4 mg PO TID PRN PRN Reason: MUSCLE SPASMS Stop: 01/19/20 00:38 Vitamin D (Cholecalciferol 1,000 Units 25 Mcg Tab) 2,000 units PO QAM [facility] Stop: 01/21/20 08:59 Last Admin: 12/23/19 08:32 Dose: 2,000 units Documented by: (1) Acute leg pain Laterality: left Qualified Code(s): M79.605 - Pain in left leg
--- NOTE | 2019-12-23 15:45 | Progress Notes ---
DATE: 12/23/2019 SUBJECTIVE: A 79-year-old white female postop day 2 from IM nailing of a left femoral diaphyseal stress fracture. She is doing pretty well. She has been up and mobilized some. Some pain, but manageable. No new complaints. OBJECTIVE: VITAL SIGNS: Temperature 36.8. Vital signs stable. GENERAL: Physical examination shows a pleasant, elderly female. She is lying in bed, looks quite comfortable. EXTREMITIES: Examination of the left leg reveals the leg to be well aligned. Dressing is clean, dry and intact. Thigh is soft and supple. NEUROLOGICAL: She is neurologically intact. ASSESSMENT: A 79-year-old white female postop day 2 from IM nailing of a left femoral diaphyseal fracture. She is orthopedically doing well. She seems stable. PLAN: 1. DVT prophylaxis include thigh-high TEDs, SCDs and we would recommend a baby aspirin twice a day for 4-6 weeks. 2. PT/OT. She can fully weightbear on this left leg as tolerated. 3. Medical management as per the Medicine Service. 4. Routine wound care. 5. Disposition: She is orthopedically okay for discharge any time. I need to see her somewhere between 2 and 3 weeks postop. Any orthopedic questions can be directed to me at [phone].
[2019-12-23] MEDS ORDERED: KETOROLAC TROMETHAMINE 15 MG/ML VIAL IV ONE (21:31)
[2019-12-23] MEDS: SENNA 8.6 MG TAB PO SCH (21:49)
[2019-12-23] MEDS: LIDOCAINE 5% 1 PATCH TD SCH (21:50)
[2019-12-24] MEDS: ACETAMINOPHEN 500 MG TAB PO SCH ×3 (06:11→21:36)
[2019-12-24] MEDS: POTASSIUM CHLORIDE 10 MEQ TABCR PO SCH ×3 (07:33→20:30)
[2019-12-24] MEDS: lisinopriL 20 MG TAB PO SCH (07:33)
[2019-12-24] MEDS: FERROUS GLUCONATE 324 MG TAB PO SCH ×2 (07:33→16:01)
[2019-12-24] MEDS: METOPROLOL SUCC 50MG EXT REL TAB PO SCH (07:34)
[2019-12-24] MEDS: ATORVASTATIN 20 MG TAB PO SCH (07:34)
[2019-12-24] MEDS: CHOLECALCIFEROL 1,000 UNITS 25 MCG TAB PO SCH (07:34)
[2019-12-24] MEDS: MULTIVITAMIN TAB PO SCH (07:35)
[2019-12-24] MEDS: AMLODIPINE BESYLATE 5 MG TAB PO SCH (07:35)
[2019-12-24] MEDS: ASCORBIC ACID 500 MG TAB PO SCH ×2 (07:35→16:01)
[2019-12-24] MEDS: MAGNESIUM CHLORIDE 64MG DELAYED REL TAB PO SCH ×2 (07:35→20:32)
[2019-12-24] MEDS: LORATADINE 10 MG TAB PO SCH (07:35)
[2019-12-24] MEDS: OSIMERTINIB MESYLATE 80 MG PO SCH (07:37)
[2019-12-24] MEDS: INSULIN ASPART 100 UNITS/ML 3 ML PEN SC SCH ×4 (07:38→21:08)
[2019-12-24] MEDS: DOCUSATE SODIUM 100 MG CAP PO SCH ×2 (07:45→20:36)
[2019-12-24] MEDS: NYSTATIN POWDER 15GM BTL EXT SCH ×3 (07:46→20:31)
--- NOTE | 2019-12-24 08:37 | Progress Notes ---
DATE: 12/24/2019 SUBJECTIVE: A 79-year-old white female now 3 days out from IM nailing of a left femoral diaphyseal stress fracture. She is doing pretty well. Pain is controlled. She has been waiting for rehab or a fdc facility. No new complaints. OBJECTIVE: VITAL SIGNS: Temperature 36.5. Vital signs stable. GENERAL: Shows a pleasant elderly female. She is sitting up in bed and eating her breakfast. She looks completely comfortable. EXTREMITIES: Examination of the left hip and leg reveals the dressing to be in place. Just a trace bit of drainage on the dressing. Her thigh is soft and supple. She is neurologically intact. ASSESSMENT: A 79-year-old white female 3 days out from IM nailing of a left femoral diaphyseal stress fracture, doing pretty well. Pain is controlled. Medically, she seems stable. PLAN: 1. DVT prophylaxis including thigh-high TEDs, SCDs, and we would recommend baby aspirin twice a day for the next 4-6 weeks. 2. PT/OT. She can weightbear as tolerated. 3. Medical management as per the medicine service. 4. Disposition: She is orthopedically okay for discharge any time. She is waiting for rehab or a fdc facility. I think she is fine to go home as long as she has enough assistance and can get around. She certainly should not be in any worse condition than when she came into the hospital and it is safe for her to weightbear as tolerated. I need to see her back in 2-3 weeks out from the surgery date. Any orthopedic questions can be directed to me at [phone].
--- NOTE | 2019-12-24 13:44 | Hospitalist Progress Note ---
Date of Service December 24, 2019 Assessment & Plan (1) Stress fracture of left femur: MRI of the left hip did show healing stress fracture involving the lateral cortex of the mid femoral diaphysis Appreciate Ortho input and recommendation Will have it left femur intramedullary nail placement today 12/21/2019 Has been complaining of minimal pain and getting PT and OT She wants to go home Likely to need rehab as per physical therapist (2) Acute leg pain: Left upper leg pain Follow official hip/pelvic x-ray results, add plain x-ray of left femur Orthopedics consult Re: Left upper leg pain X-ray concerning for stress fracture, orthopedics recommend MRI with contrast Gave additional of 500 cc of normal saline prior to contrast Currently creatinine normalized MRI reviewed by Ortho, recommend left femur intramedullary nail, plan for tomorrow December 20 As above Denies any more pain at rest (3) Asymptomatic hypertensive urgency: Secondary to left upper leg pain, NSAID intake Etiology to be determined Blood pressure remains stable Denies any symptoms Blood pressure is well controlled ARF Noted to have increasing creatinine of 1.25 on admission Secondary to dehydration and contributed by use of NSAID use Received cautious amount of IV fluid and oral fluid Kidney function has been normalized Paroxysmal AFib, patient NSR No acute symptoms DM2 diet controlled, well-controlled as of recent outpatient hemoglobin A1c of 5.6% November 2019 ISS BG goal [id number] Bilateral buttock and sacral decubiti of stage I Decubiti wounds, no gross infection as per health care facilities inspector nurse consult Re: decubiti wounds Advised to avoid prolonged pressure over sacral area Hx BRCA gene mutation Recurrent NSCLC status post surgery ongoing Osimertinib tx Hx breast cancer, L sp surgery and chemotherapy Uterine cancer sp surgery/chemotx No acute symptoms Stool C. difficile Replace electrolytes DVT prophylaxis. Heparin subcu Full code Medically stable Will need rehab placement on discharge Admission and Anticipated Discharge Date Admission Date: December 21, 2019 Subjective 12/21/2019 The patient was seen and examined in medical telemetry unit She has been complaining of left hip pain Denies any headache, numbness or tingling involving any of the extremities 12/22/2019 The patient was seen and examined in medical telemetry unit She has been complaining of minimal pain in the left lower extremity with movement Denies any other symptoms 12/23/2019 The patient was seen and examined in the medical floor She remains stable Complains of minimal pain left lower extremity with movement Denies any headache and/or noted to have any high blood pressure 12/24/2019 The patient was seen and examined in medical floor She remains stable without significant pain She wants to go home Review of Systems Review of Systems: All systems reviewed and are unremarkable except as noted below Musculoskeletal: Left hip pain with movement Physical Exam Physical Exam: Lying on bed without any acute distress Constitutional: well developed, well nourished and average body habitus; no acute distress and not ill appearing Eyes: PERRL, conjunctivae normal, anicteric sclerae ENMT: external ear and nose normal, oropharynx normal Neck: trachea midline, no thyromegaly Respiratory: normal respiratory effort; no respiratory distress Auscultation: lungs clear to auscultation bilaterally Cardiovascular: Rate/Rhythm: regular rate and regular rhythm Heart Sounds: no murmur Gastrointestinal (Abdomen): Inspection/Auscultation: abdomen normal to inspection and normal bowel sounds; abdomen not distended P ercussion/Palpation: abdomen soft; abdomen nontender Musculoskeletal: No acute arthritis involving any joints Neurologic: moves all extremities; no focal motor deficits Lymphatic: no cervical or axillary lymphadenopathy Results & Data Results & Data ([facility]) Vital Signs (Past 12 Hours) Vital Signs Temp Pulse Pulse Resp BP Pulse Ox 12/24/19 11:54 36.5 C 84 16 137/73 96 12/24/19 08:32 70 12/24/19 07:55 36.5 C 78 16 155/80 H 91 12/24/19 03:36 36.7 C 80 18 148/80 H 96 (1) Acute leg pain Laterality: left Qualified Code(s): M79.605 - Pain in left leg
[2019-12-24] MEDS: ONDANSETRON INJ 2 MG/ML 2 ML VIAL IV PRN (16:00)
[2019-12-24] MEDS: LIDOCAINE 5% 1 PATCH TD SCH (20:30)
[2019-12-24] MEDS: SENNA 8.6 MG TAB PO SCH (20:31)
[2019-12-25] MEDS: ACETAMINOPHEN 500 MG TAB PO SCH ×3 (05:53→21:14)
[2019-12-25] MEDS: DOCUSATE SODIUM 100 MG CAP PO SCH ×2 (08:24→21:05)
[2019-12-25] MEDS: INSULIN ASPART 100 UNITS/ML 3 ML PEN SC SCH ×4 (08:26→21:04)
[2019-12-25] MEDS: FERROUS GLUCONATE 324 MG TAB PO SCH ×2 (08:26→17:28)
[2019-12-25] MEDS: ATORVASTATIN 20 MG TAB PO SCH (08:27)
[2019-12-25] MEDS: MULTIVITAMIN TAB PO SCH (08:27)
[2019-12-25] MEDS: CHOLECALCIFEROL 1,000 UNITS 25 MCG TAB PO SCH (08:27)
[2019-12-25] MEDS: POTASSIUM CHLORIDE 10 MEQ TABCR PO SCH ×3 (08:27→21:03)
[2019-12-25] MEDS: OSIMERTINIB MESYLATE 80 MG PO SCH (08:27)
[2019-12-25] MEDS: ASCORBIC ACID 500 MG TAB PO SCH ×2 (08:27→17:28)
[2019-12-25] MEDS: METOPROLOL SUCC 50MG EXT REL TAB PO SCH (08:27)
[2019-12-25] MEDS: LORATADINE 10 MG TAB PO SCH (08:27)
[2019-12-25] MEDS: lisinopriL 20 MG TAB PO SCH (08:27)
[2019-12-25] MEDS: MAGNESIUM CHLORIDE 64MG DELAYED REL TAB PO SCH ×2 (08:27→21:02)
[2019-12-25] MEDS: AMLODIPINE BESYLATE 5 MG TAB PO SCH (08:27)
[2019-12-25] MEDS: NYSTATIN POWDER 15GM BTL EXT SCH ×3 (08:27→21:05)
[2019-12-25] MEDS: SPIRONOLACTONE 25 MG TAB PO SCH (08:27)
[2019-12-25] MEDS: ASPIRIN 81 MG ECTAB PO SCH ×2 (08:33→21:04)
--- NOTE | 2019-12-25 08:35 | Progress Notes ---
DATE: 12/25/2019 SUBJECTIVE: A 79-year-old white female now 4 days out from IM nailing of a left femoral diaphyseal stress fracture. She is doing okay. Pain is controlled. Just waiting for placement. OBJECTIVE: VITAL SIGNS: Temperature 36.7. Vital signs stable. GENERAL: Shows a pleasant elderly female. I did wake her this morning. EXTREMITIES: Examination of the left leg reveals it to be well aligned. Dressings in place. Just a little bit of bloody drainage. She does have quite a bit of bruising around the incision site. Thigh is otherwise soft and supple. She is neurologically intact. ASSESSMENT: A 79-year-old white female postop day 4 from IM nailing of the left femoral diaphyseal stress fracture, doing okay. Pain is controlled. Just waiting for placement. PLAN: 1. DVT prophylaxis including thigh-high TEDs, SCDs, and baby aspirin twice a day for the next 4-6 weeks. 2. PT/OT. She will weightbear as tolerated. 3. Wound management. Continue wound care. She does have a little bit of a hematoma, but should resolve on its own. 4. Disposition, orthopedically okay for discharge any time placement can be arranged.
--- NOTE | 2019-12-25 12:40 | Hospitalist Progress Note ---
Date of Service December 25, 2019 Assessment & Plan (1) Stress fracture of left femur: MRI of the left hip did show healing stress fracture involving the lateral cortex of the mid femoral diaphysis Appreciate Ortho input and recommendation Will have it left femur intramedullary nail placement today 12/21/2019 Has been complaining of minimal pain and getting PT and OT She wants to go home Likely to need rehab as per physical therapist Awake PT recommendation tomorrow (2) Acute leg pain: Left upper leg pain Follow official hip/pelvic x-ray results, add plain x-ray of left femur Orthopedics consult Re: Left upper leg pain X-ray concerning for stress fracture, orthopedics recommend MRI with contrast Gave additional of 500 cc of normal saline prior to contrast Currently creatinine normalized MRI reviewed by Ortho, recommend left femur intramedullary nail, plan for tomorrow December 20 As above Denies any more pain at rest (3) Asymptomatic hypertensive urgency: Secondary to left upper leg pain, NSAID intake Etiology to be determined Blood pressure remains stable Denies any symptoms Blood pressure is well controlled ARF Noted to have increasing creatinine of 1.25 on admission Secondary to dehydration and contributed by use of NSAID use Received cautious amount of IV fluid and oral fluid Kidney function has been normalized Paroxysmal AFib, patient NSR No acute symptoms Heart rate remains controlled DM2 diet controlled, well-controlled as of recent outpatient hemoglobin A1c of 5.6% November 2019 ISS BG goal [id number] Bilateral buttock and sacral decubiti of stage I Decubiti wounds, no gross infection as per healthcare architect nurse consult Re: decubiti wounds Advised to avoid prolonged pressure over sacral area Hx BRCA gene mutation Recurrent NSCLC status post surgery ongoing Osimertinib tx Hx breast cancer, L sp surgery and chemotherapy Uterine cancer sp surgery/chemotx No acute symptoms Stool C. difficile Replace electrolytes Repeat stool came back negative for C. difficile colitis DVT prophylaxis. Heparin subcu Full code Medically stable Will need rehab placement on discharge Discharge tomorrow Admission and Anticipated Discharge Date Admission Date: December 21, 2019 Subjective 12/21/2019 The patient was seen and examined in medical telemetry unit She has been complaining of left hip pain Denies any headache, numbness or tingling involving any of the extremities 12/22/2019 The patient was seen and examined in medical telemetry unit She has been complaining of minimal pain in the left lower extremity with movement Denies any other symptoms 12/23/2019 The patient was seen and examined in the medical floor She remains stable Complains of minimal pain left lower extremity with movement Denies any headache and/or noted to have any high blood pressure 12/24/2019 The patient was seen and examined in medical floor She remains stable without significant pain She wants to go home 12/25/2019 Patient was seen and examined in medical floor She has been feeling a lot better and denies any pain at rest She has been getting regular physical therapy and advised to go for rehab Review of Systems Review of Systems: All systems reviewed and are unremarkable except as noted below Musculoskeletal: Left hip pain with movement Physical Exam Physical Exam: Sitting on a chair without any acute distress Constitutional: well developed, well nourished and average body habitus; no acute distress and not ill appearing Eyes: PERRL, conjunctivae normal, anicteric sclerae ENMT: external ear and nose normal, oropharynx normal Neck: trachea midline, no thyromegaly Respiratory: normal respiratory effort; no respiratory distress Auscultation: lungs clear to auscultation bilaterally Cardiovascular: Rate/Rhythm: regular rate and regular rhythm Heart Sounds: no murmur Gastrointestinal (Abdomen): Inspection/Auscultation: abdomen normal to inspection and normal bowel sounds; abdomen not distended Percussion/Palpation: abdomen soft; abdomen nontender Musculoskeletal: No acute arthritis involving any joints Neurologic: moves all extremities; no focal motor deficits Lymphatic: no cervical or axillary lymphadenopathy Results & Data Results & Data ([facility]) Vital Signs (Past 12 Hours) Vital Signs Temp Pulse Pulse Resp BP Pulse Ox 12/25/19 11:31 36.9 C 77 16 138/79 96 12/25/19 07:44 75 12/25/19 07:12 36.7 C 84 16 141/79 H 93 12/25/19 03:03 36.6 C 88 18 156/81 H 98 (1) Acute leg pain Laterality: left Qualified Code(s): M79.605 - Pain in left leg
[2019-12-25] MEDS: SENNA 8.6 MG TAB PO SCH (21:09)
[2019-12-25] MEDS: LIDOCAINE 5% 1 PATCH TD SCH (21:20)
[2019-12-26] MEDS: ACETAMINOPHEN 500 MG TAB PO SCH ×2 (06:08→15:07)
[2019-12-26 07:08] LABS: Basophils # (auto) 0.02 K/uL (0-0.2); Basophils % (auto) 0.3 %; Eosinophils # (auto) 0.32 K/uL (0-0.5); Eosinophils % (auto) 4.4 %; Hematocrit (blood only) 31.4 % (37-47); Hemoglobin 10.4 g/dL (12.0-16.0); Immature Granulocytes # (auto) 0.02 K/uL (0.00-0.02); Immature Granulocytes % (auto) 0.3 %; Lymphocytes # (auto) 1.62 K/uL (1.2-3.4); Lymphocytes % (auto) 22.5 %; Mean Corpuscular Hemoglobin 31.4 pg (25-34); Mean Corpuscular Hgb Conc 33.1 g/dL (32-36); Mean Corpuscular Volume 94.9 fL (80-100); Monocytes # (auto) 0.86 K/uL (0.11-0.59); Monocytes % (auto) 11.9 %; Neutrophils # (auto) 4.37 K/uL (1.4-6.5); Neutrophils % (auto) 60.6 %; Platelet Count 169 K/uL (130-400); RDW Standard Deviation 51.9 fL (36.4-46.3); Red Blood Count 3.31 M/uL (4.2-5.4); White Blood Count 7.21 K/uL (4.8-10.8)
[2019-12-26] MEDS: SPIRONOLACTONE 25 MG TAB PO SCH (07:23)
[2019-12-26] MEDS: ASCORBIC ACID 500 MG TAB PO SCH ×2 (07:23→17:36)
[2019-12-26] MEDS: AMLODIPINE BESYLATE 5 MG TAB PO SCH (07:23)
[2019-12-26] MEDS: CHOLECALCIFEROL 1,000 UNITS 25 MCG TAB PO SCH (07:23)
[2019-12-26] MEDS: LORATADINE 10 MG TAB PO SCH (07:23)
[2019-12-26] MEDS: lisinopriL 20 MG TAB PO SCH (07:23)
[2019-12-26] MEDS: MAGNESIUM CHLORIDE 64MG DELAYED REL TAB PO SCH (07:23)
[2019-12-26] MEDS: FERROUS GLUCONATE 324 MG TAB PO SCH ×2 (07:24→17:36)
[2019-12-26] MEDS: ATORVASTATIN 20 MG TAB PO SCH (07:24)
[2019-12-26] MEDS: METOPROLOL SUCC 50MG EXT REL TAB PO SCH (07:24)
[2019-12-26] MEDS: ASPIRIN 81 MG ECTAB PO SCH (07:24)
[2019-12-26] MEDS: POTASSIUM CHLORIDE 10 MEQ TABCR PO SCH ×2 (07:24→15:07)
[2019-12-26] MEDS: NYSTATIN POWDER 15GM BTL EXT SCH ×2 (07:25→15:07)
[2019-12-26] MEDS: MULTIVITAMIN TAB PO SCH (07:25)
[2019-12-26] MEDS: DOCUSATE SODIUM 100 MG CAP PO SCH (07:26)
[2019-12-26] MEDS: OSIMERTINIB MESYLATE 80 MG PO SCH (07:26)
[2019-12-26 07:36] LABS: BUN Creatinine Ratio 23.6 (10-20); Calcium 8.5 mg/dl (8.5-10.1); Creatinine Clr Calc Pharmacy 48.3 ml/min; Est GFR (African American) 62.8; Est GFR (Non-African American) 54.2; Magnesium 1.9 mg/dl (1.8-2.4); Potassium 4.1 mmol/L (3.5-5.1)
[2019-12-26] MEDS: INSULIN ASPART 100 UNITS/ML 3 ML PEN SC SCH ×3 (08:00→17:36)
--- NOTE | 2019-12-26 08:05 | Progress Notes ---
DATE: 12/26/2019 SUBJECTIVE: A 79-year-old white female now 5 days out from IM nailing of a left femoral diaphyseal stress fracture. She is doing well. Pain seems to be getting a little bit better. She is just waiting for placement. OBJECTIVE: VITAL SIGNS: Temperature is 36.5. Vital signs are stable. GENERAL: Shows a pleasant elderly female. She is lying in bed, looks comfortable. EXTREMITIES: Examination of the left leg reveals the leg to be well aligned. Her dressing has got just a trace bit of bloody drainage on it distally. She does have quite a bit of bruising around the incision sites. It is diffuse bruising. No large or significant hematoma. Her thigh is soft and supple otherwise. She is neurologically intact. ASSESSMENT: A 79-year-old white female postop, 5 days out from IM nailing of left femoral diaphyseal stress fracture, doing reasonably well. Just waiting for placement. PLAN: 1. DVT prophylaxis including thigh-high TEDs, SCDs, and aspirin twice a day. 2. PT/OT. She will weightbear as tolerated in the left lower extremity. 3. Pain control, doing okay with current pain regimen. 4. Routine wound care. 5. Medical management as per the medicine service. 6. Disposition: She is orthopedically okay for discharge any time. I need to see her back 2-3 weeks out from her surgery date. She can fully weightbear as tolerated. Any orthopedic questions can be directed to me at [phone].
--- NOTE | 2019-12-26 13:16 | Hospitalist Progress Note ---
Date of Service December 26, 2019 Assessment & Plan (1) Stress fracture of left femur: MRI of the left hip did show healing stress fracture involving the lateral cortex of the mid femoral diaphysis Appreciate Ortho input and recommendation Will have it left femur intramedullary nail placement today 12/21/2019 Has been complaining of minimal pain and getting PT and OT She wants to go home Likely to need rehab as per physical therapist Await PT recommendation tomorrow PT recommended home with home health Patient is very happy to be going home (2) Acute leg pain: Left upper leg pain Follow official hip/pelvic x-ray results, add plain x-ray of left femur Orthopedics consult Re: Left upper leg pain X-ray concerning for stress fracture, orthopedics recommend MRI with contrast Gave additional of 500 cc of normal saline prior to contrast Currently creatinine normalized MRI reviewed by Ortho, recommend left femur intramedullary nail, plan for tomorrow December 20 Denies any pain at rest Physical therapy recommended that she could go home with home health (3) Asymptomatic hypertensive urgency: Secondary to left upper leg pain, NSAID intake Etiology to be determined Blood pressure remains stable Denies any symptoms Blood pressure is well controlled-we will continue current medications on discharge ARF Noted to have increasing creatinine of 1.25 on admission Secondary to dehydration and contributed by use of NSAID use Received cautious amount of IV fluid and oral fluid Kidney function has been normalized Paroxysmal AFib, patient NSR No acute symptoms Heart rate remains controlled DM2 diet controlled, well-controlled as of recent outpatient hemoglobin A1c of 5.6% November 2019 ISS BG goal [id number] Bilateral buttock and sacral decubiti of stage I Decubiti wounds, no gross infection as per family day care provider nurse consult Re: decubiti wounds Advised to avoid prolonged pressure over sacral area Hx BRCA gene mutation Recurrent NSCLC status post surgery ongoing Osimertinib tx Hx breast cancer, L sp surgery and chemotherapy Uterine cancer sp surgery/chemotx No acute symptoms Stool C. difficile Replace electrolytes Repeat stool came back negative for C. difficile colitis DVT prophylaxis. Heparin subcu Full code Medically stable Will need rehab placement on discharge Discharge this afternoon Admission and Anticipated Discharge Date Admission Date: December 21, 2019 Subjective 12/21/2019 The patient was seen and examined in medical telemetry unit She has been complaining of left hip pain Denies any headache, numbness or tingling involving any of the extremities 12/22/2019 The patient was seen and examined in medical telemetry unit She has been complaining of minimal pain in the left lower extremity with movement Denies any other symptoms 12/23/2019 The patient was seen and examined in the medical floor She remains stable Complains of minimal pain left lower extremity with movement Denies any headache and/or noted to have any high blood pressure 12/24/2019 The patient was seen and examined in medical floor She remains stable without significant pain She wants to go home 12/25/2019 Patient was seen and examined in medical floor She has been feeling a lot better and denies any pain at rest She has been getting regular physical therapy and advised to go for rehab 12/26/2019 The patient was seen and examined in medical floor She has been stable and denies any symptoms She is happy that she could go home with home health Review of Systems Review of Systems: All systems reviewed and are unremarkable except as noted below Musculoskeletal: Left hip pain with movement Physical Exam Physical Exam: Sitting on a chair without any acute distress Constitutional: well developed, well nourished and average body habitus; no acute distress and not ill appearing Eyes: PERRL, conjunctivae normal, anicteric sclerae ENMT: external ear and nose normal, oropharynx normal Neck: trachea midline, no thyromegaly Respiratory: normal respiratory effort; no respiratory distress Auscultation: lungs clear to auscultation bilaterally Cardiovascular: Rate/Rhythm: regular rate and regular rhythm Heart Sounds: no murmur Gastrointestinal (Abdomen): Inspection/Auscultation: abdomen normal to inspection and normal bowel sounds; abdomen not distended Percussion/Palpation: abdomen soft; abdomen nontender Musculoskeletal: No acute arthritis involving any joints Neurologic: moves all extremities; no focal motor deficits Alert, awake and oriented x3 Lymphatic: no cervical or axillary lymphadenopathy Results & Data Results & Data ([facility]) Vital Signs (Past 12 Hours) Vital Signs Temp Pulse Resp BP Pulse Ox 12/26/19 11:55 36.8 C 82 16 141/75 H 94 12/26/19 07:19 36.7 C 76 16 137/72 93 12/26/19 03:08 36.5 C 84 20 147/78 H 93 Laboratory Results Short CBC 12/26/19 Range/Units 06:58 WBC 7.21 (4.8-10.8) K/uL Hgb 10.4 L (12.0-16.0) g/dL Hct 31.4 L (37-47) % Plt Count 169 (130-400) K/uL BMP 12/26/19 06:58 Sodium 141 Potassium 4.1 Chloride 112 H Carbon Dioxide 23 BUN 23 H Creatinine 0.99 Glucose 86 Calcium 8.5 Medications Administered Current Inpatient Medications Acetaminophen (Acetaminophen 500 Mg Tab) 1,000 mg PO Q6H PRN PRN Reason: Pain Stop: 01/19/20 09:48 Last Admin: 12/20/19 23:50 Dose: 1,000 mg Documented by: Acetaminophen (Acetaminophen 500 Mg Tab) 1,000 mg PO Q8 BERNARDA Stop: 01/20/20 21:59 Last Admin: 12/26/19 06:08 Dose: 1,000 mg Documented by: Al Hydrox/Mg Hydrox/Simethicone (Aluminum/Magnesium Susp 30 Ml Udc) 15 ml PO Q4H PRN PRN Reason: Heartburn Stop: 01/20/20 19:11 Albuterol (Albuterol Hfa 8 Gm Inhaler) 2 puffs INH QID PRN PRN Reason: Shortness Of Breath Stop: 01/20/20 19:11 Amlodipine Besylate (Amlodipine Besylate 5 Mg Tab) 10 mg PO QAM [facility] Stop: 01/19/20 08:59 Last Admin: 12/26/19 07:23 Dose: 10 mg Documented by: Ascorbic Acid (Ascorbic Acid 500 Mg Tab) 500 mg PO BIDM [facility] Stop: 01/21/20 07:59 Last Admin: 12/26/19 07:23 Dose: 500 mg Documented by: Aspirin (Aspirin 81 Mg Ectab) 81 mg PO BID [facility] Stop: 01/24/20 08:59 Last Admin: 12/26/19 07:24 Dose: 81 mg Documented by: Atorvastatin Calcium (Atorvastatin 20 Mg Tab) 20 mg PO QAM [facility] Stop: 01/19/20 08:59 Last Admin: 12/26/19 07:24 Dose: 20 mg Documented by: Bisacodyl (Bisacodyl 10 Mg Supp) 10 mg NM DAILY PRN PRN Reason: Constipation Stop: 01/20/20 19:11 Colchicine (Colchicine 0.6 Mg Tab) 0.6 mg PO BID PRN PRN Reason: GOUT Stop: 01/20/20 19:11 Dextrose (Dextrose 50% 50 Ml Syringe) 25 - 50 ml IV UD PRN; Protocol PRN Reason: Hypoglycemia Protocol Stop: 01/19/20 00:38 Docusate Sodium (Docusate Sodium 100 Mg Cap) 100 mg PO BID [facility] Stop: 01/20/20 20:59 Last Admin: 12/26/19 07:26 Dose: Not Given Documented by: Ferrous Gluconate (Ferrous Gluconate 324 Mg Tab) 324 mg PO BIDM [facility] Stop: 01/21/20 07:59 Last Admin: 12/26/19 07:24 Dose: 324 mg Documented by: Fluticasone Propionate (Fluticasone Propionate Na Spr 16 Gm Btl) 2 sprays DEVORA DAILY PRN PRN Reason: Congestion Stop: 01/20/20 19:11 Glucagon (Glucagon For Inj 1 Mg Vial) 1 mg SQ UD PRN; Protocol PRN Reason: Hypoglycemia Protocol Stop: 01/19/20 00:38 Glucose (Glucose 10 Tabs/Tube) 4 - 8 tabs PO UD PRN; Protocol PRN Reason: Hypoglycemia Protocol Stop: 01/19/20 00:38 Glucose (Glucose 40% Gel 15 Gm Tube) 15 - 30 gm PO UD PRN; Protocol PRN Reason: Hypoglycemia Protocol Stop: 01/19/20 00:38 Heparin Sodium (Porcine) (Heparin 100 Unit/Ml 5ml Flush 5 Ml Syr) 5 ml IV PRN PRN PRN Reason: Flush Stop: 01/22/20 13:14 Last Admin: 12/26/19 06:59 Dose: 5 ml Documented by: Hydromorphone HCl (Hydromorphone Hcl 2 Mg Tab) 2 mg PO QID PRN PRN Reason: Pain Stop: 01/03/20 00:38 Hydromorphone HCl (Hydromorphone Inj 0.5 Mg/0.5 Ml Syr) 0.5 mg IV Q4H PRN PRN Reason: Pain or Pre PT Stop: 01/04/20 19:11 Last Admin: 12/22/19 15:50 Dose: 0.5 mg Documented by: Promethazine HCl 12.5 mg/ (Sodium Chloride) 50.5 mls @ 202 mls/hr IV Q6H PRN PRN Reason: Nausea And Vomiting Stop: 01/19/20 00:38 Insulin Aspart (Insulin Aspart 100 Units/Ml 3 Ml Pen) 0 units SC [facility] Stop: 01/19/20 00:38 Last Admin: 12/26/19 11:40 Dose: Not Given Documented by: Lidocaine (Lidocaine 5% 1 Patch) 1 patch TD DAILY@1999 [facility] Stop: 01/19/20 19:59 Last Admin: 12/25/19 21:20 Dose: 1 patch Documented by: Lisinopril (Lisinopril 20 Mg Tab) 20 mg PO QAM [facility] Stop: 01/21/20 08:59 Last Admin: 12/26/19 07:23 Dose: 20 mg Documented by: Loratadine (Loratadine 10 Mg Tab) 10 mg PO DAILY [facility] Stop: 01/19/20 08:59 Last Admin: 12/26/19 07:23 Dose: 10 mg Documented by: Lorazepam (Lorazepam 0.5 Mg Tab) 0.5 mg PO DAILY PRN PRN Reason: Anxiety Stop: 01/20/20 19:11 Magnesium Chloride (Magnesium Chloride 64mg Delayed Rel Tab) 64 mg PO BID [facility] Stop: 01/20/20 20:59 Last Admin: 12/26/19 07:23 Dose: 64 mg Documented by: Magnesium Hydroxide (Magnesium Hydroxide Susp 30 Ml Udc) 30 ml PO Q6H PRN PRN Reason: Constipation Stop: 01/20/20 19:11 Metoclopramide HCl (Metoclopramide Hcl Inj 5 Mg/Ml 2 Ml Vial) 10 mg IV Q6H PRN PRN Reason: Nausea And Vomiting Stop: 01/20/20 19:11 Metoprolol Succinate (Metoprolol Succ 50mg Ext Rel Tab) [facility] Stop: 01/19/20 08:59 Last Admin: 12/26/19 07:24 Dose: 50 mg Documented by: Miscellaneous (Carbohydrates For Hypoglycemia ) 15 - 30 gm PO UD PRN PRN Reason: Hypoglycemia Protocol Stop: 01/19/20 00:38 Miscellaneous (Remove Lidoderm Patch) 1 ea N/A DAILY@0800 [facility] Stop: 01/19/20 07:59 Last Admin: 12/26/19 06:11 Dose: 1 ea Documented by: Multivitamins (Multivitamin Tab) [facility] Stop: 01/21/20 08:59 Last Admin: 12/26/19 07:25 Dose: 1 tab Documented by: Naloxone HCl (Naloxone Hcl 0.4 Mg/1 Ml Vial/Carp) 0.1 mg IV Q5M PRN PRN Reason: Oversedation/Resp Depression Stop: 01/20/20 19:11 Nystatin (Nystatin Powder 15gm Btl) 1 appln EXT TID [facility] Stop: 01/20/20 20:59 Last Admin: 12/26/19 07:25 Dose: 1 appln Documented by: Ondansetron HCl (Ondansetron 8mg Od Tab) 8 mg PO Q8H PRN PRN Reason: Nausea Ondansetron HCl (Ondansetron Inj 2 Mg/Ml 2 Ml Vial) 4 mg IV Q6H PRN PRN Reason: Nausea And Vomiting Stop: 01/20/20 19:11 Last Admin: 12/24/19 16:00 Dose: 4 mg Documented by: Osimertinib (Osimertinib Mesylate 80 Mg) 1 ea PO DAILY [facility] Stop: 01/19/20 15:59 Last Admin: 12/26/19 07:26 Dose: 1 ea Documented by: Oxycodone HCl (Oxycodone Hcl Ir 5 Mg Tab (Immediate Release)) 5 - 10 mg PO Q6H PRN PRN Reason: Pain or Pre PT Stop: 01/04/20 19:11 Potassium Chloride (Potassium Chloride 10 Meq Tabcr) 10 meq PO TID [facility] Stop: 01/20/20 20:59 Last Admin: 12/26/19 07:24 Dose: 10 meq Documented by: Prochlorperazine (Prochlorperazine Maleate 10 Mg Tab) 10 mg PO Q6H PRN PRN Reason: Nausea Stop: 01/20/20 19:11 Sennosides (Senna 8.6 Mg Tab) 17.2 mg PO HS [facility] Stop: 01/20/20 20:59 Last Admin: 12/25/19 21:09 Dose: Not Given Documented by: Spironolactone (Spironolactone 25 Mg Tab) 12.5 mg PO SuMoWeThFr@0900 [facility] Stop: 01/21/20 08:59 Last Admin: 12/26/19 07:23 Dose: 12.5 mg Documented by: Tizanidine HCl (Tizanidine Hcl 4 Mg Tablet) 4 mg PO TID PRN PRN Reason: MUSCLE SPASMS Stop: 01/19/20 00:38 Vitamin D (Cholecalciferol 1,000 Units 25 Mcg Tab) 2,000 units PO QAM [facility] Stop: 01/21/20 08:59 Last Admin: 12/26/19 07:23 Dose: 2,000 units Documented by: (1) Acute leg pain Laterality: left Qualified Code(s): M79.605 - Pain in left leg
--- NOTE | 2019-12-27 08:36 | Discharge Summary ---
Date of Service December 27, 2019 Admission HPI Per Admitting Provider History obtained from patient, family, and records. Medical history significant for hypertension, paroxysmal AFib, hx BRCA gene mutation, recurrent NSCLC status post surgery ongoing Osimertinib tx, breast cancer, L sp surgery and chemotherapy, uterine cancer sp surgery/chemotx, DM2 diet-controlled, depression. Last confinement May 2017 under orthopedic service for right total knee arthroplasty. Patient has had chronic left upper leg pain for a few months now. Possibly related to some twisting incident involving the right lower extremity as per patient. OTC NSAID intake at home about 5 daily. The last 2 weeks, patient noted worsening of achy left thigh pain especially with motion with some radiation to the back. No chest pain, no S OB, no fever, no chills. Patient also complaining of loose stools nonbloody without abdominal pain. Poor appetite. No recent antibiotic Rx. Patient brought by to the ER. Decubiti sores on patient's bottom noted by RN at the ER. MEDICAL HISTORY: As above. PET scan (skull base to mid thigh) November 2019: No abnormal uptake to suggest active neoplasm SURGERIES: She has had A-port placement, hysterectomy, tubal ligation, tonsillectomy, adenoidectomy, carpal tunnel surgery, knee surgery, urologic procedures, eye surgery, shoulder surgery, modified radical mastectomy left, thoracoscopy/lung surgery, cataract surgery. FAMILY HISTORY: There is a family history of breast cancer, colon cancer, dementia. PERSONAL AND SOCIAL HISTORY: Nonsmoker, no chronic intake of alcoholic beverages. 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 Admission Exam Per Admitting Provider Physical Exam: GENERAL: uncomfortable, slight chills, obese, no respiratory distress SKIN: Normal color, warm HEENT: Bespectacled, pink palpebral conjunctivae, no ptosis, dry buccal mucosa NECK : Supple, short neck, no tenderness CHEST : CTA, no tenderness HEART : RRR, no obvious murmurs ABDOMEN: Some distention, nontender BACK : Not examined EXTREMITIES : Minimal LE swelling, minimal L thigh tenderness, no other conspicuous deformities noted NEUROLOGIC : Coherent, no facial asymmetry, no other gross focality Principal Diagnosis Left Femur stress fracture treated with IM Nail. Discharge Exam Constitutional well developed, well nourished and average body habitus; no acute distress and not ill appearing Eyes PERRL, conjunctivae normal, anicteric sclerae ENMT external ear and nose normal, oropharynx normal Neck trachea midline, no thyromegaly Respiratory normal respiratory effort; no respiratory distress Auscultation: lungs clear to auscultation bilaterally Cardiovascular Rate/Rhythm: regular rate and regular rhythm Heart Sounds: no murmur Gastrointestinal (Abdomen) Inspection/Auscultation: abdomen normal to inspection and normal bowel sounds; abdomen not distended Percussion/Palpation: abdomen soft; abdomen nontender Neurologic moves all extremities; no focal motor deficits Lymphatic no cervical or axillary lymphadenopathy Discharge Data Allergies Allergy/AdvReac Type Severity Reaction Status Date / Time castor oil Allergy Unknown ANAPHYLACTI Verified 10/12/19 09:42 C Cipro Allergy Unknown HIVES Verified 05/19/17 06:57 ciprofloxacin Allergy Unknown HIVES Verified 10/12/19 09:42 paclitaxel Allergy Unknown ANAPHYLACTI Verified 10/12/19 09:42 C codeine AdvReac Unknown GI SYMPTOMS Verified 10/12/19 09:42 cyproheptadine AdvReac Unknown lethargy Verified 10/12/19 09:42 doxepin AdvReac Unknown lethargy Verified 10/12/19 09:42 gabapentin AdvReac Unknown GI SYMPTOMS Verified 10/12/19 09:42 hydrocodone AdvReac Unknown GI SYMPTOMS Verified 10/12/19 09:42 meloxicam AdvReac Unknown dizzy,heada Verified 10/12/19 09:42 michael,nausea oxycodone AdvReac Unknown GI SYMPTOMS Verified 10/12/19 09:42 prednisone AdvReac Unknown ELEVATED Verified 10/12/19 09:42 GLUCOSE tramadol AdvReac Unknown GI SYMPTOMS Verified 10/12/19 09:42 Consultations 12/19/19 22:34 ED Decision to Admit Stat 12/20/19 00:07 Consult Orthopedic Surgery Routine 12/21/19 19:12 Consult Case Management - Discharge Planning Routine Procedures Performed Operation Date: 12/21/19 10:45 Actual Procedures p Left Femur Intramedullary Nail(Left) - Toy Paez MD Ordered Studies 12/19/19 19:25 US venous doppler LE LT Urgent 12/20/19 09:06 MR femur LT wo/w con Urgent 12/21/19 13:00 FL fluoroscopy <1hr Routine FL hip LT 2-3V Routine Hospital Course (1) Stress fracture of left femur: MRI of the left hip did show healing stress fracture involving the lateral cortex of the mid femoral diaphysis Appreciate Ortho input and recommendation Will have it left femur intramedullary nail placement today 12/21/2019 Has been complaining of minimal pain and getting PT and OT She wants to go home Likely to need rehab as per physical therapist Await PT recommendation tomorrow PT recommended home with home health Patient is very happy to be going home (2) Acute leg pain: Left upper leg pain Follow official hip/pelvic x-ray results, add plain x-ray of left femur Orthopedics consult Re: Left upper leg pain X-ray concerning for stress fracture, orthopedics recommend MRI with contrast Gave additional of 500 cc of normal saline prior to contrast Currently creatinine normalized MRI reviewed by Ortho, recommend left femur intramedullary nail, plan for tomorrow December 20 Denies any pain at rest Physical therapy recommended that she could go home with home health (3) Asymptomatic hypertensive urgency: Secondary to left upper leg pain, NSAID intake Etiology to be determined Blood pressure remains stable Denies any symptoms Blood pressure is well controlled-we will continue current medications on discharge ARF Noted to have increasing creatinine of 1.25 on admission Secondary to dehydration and contributed by use of NSAID use Received cautious amount of IV fluid and oral fluid Kidney function has been normalized Paroxysmal AFib, patient NSR No acute symptoms Heart rate remains controlled DM2 diet controlled, well-controlled as of recent outpatient hemoglobin A1c of 5.6% November 2019 ISS BG goal [id number] Bilateral buttock and sacral decubiti of stage I Decubiti wounds, no gross infection as per manager intensive care nurse consult Re: decubiti wounds Advised to avoid prolonged pressure over sacral area Hx BRCA gene mutation Recurrent NSCLC status post surgery ongoing Osimertinib tx Hx breast cancer, L sp surgery and chemotherapy Uterine cancer sp surgery/chemotx No acute symptoms Stool C. difficile Replace electrolytes Repeat stool came back negative for C. difficile colitis DVT prophylaxis. Heparin subcu Full code Medically stable Will need rehab placement on discharge Discharge this afternoon Total Time Total Time Spent Total Time Spent (In Minutes): 35 minutes Total Time Includes: Examination of the Patient, Discharge Planning, Medication Reconciliation and Communication With Other Providers Discharge Plan Discharge Items Patient Disposition: Home - Home Health Services Reason For Visit: HTN URGENCY Discharge Diagnosis: Left Femur stress fracture treated with IM Nail. Condition on Discharge: Fair Activity: Per Instructions section Activity Comment: May resume activities as tolerated. Weightbear as tolerated. Weightbearing: Full weightbearing Non-emergency contact: Primary Care Provider Call non-emergency contact if: you have any medication questions and your symptoms worsen Follow-up/Referrals: Toy Paez MD [Physician] - (Orthopedic follow-up 2-3 weeks from surgery.) Hank Ivey DO [Primary Care Provider] - 12/30/19 12:00 pm (Date & Time 12/30/2019 12:00 PM Provider Esperanza Jeffery DO [facility] ) Diet: Carb Consistent or DM2, Heart Healthy and Low Sodium (2gm) Addtl Attending Provider Instructions: Please take precaution to avoid falls You can take Tylenol 1 g(2 of 500 mg tablets) up to 3 times a day as needed to control pain Try not to use ibuprofen and/or meloxicam while you are on aspirin. Pending Studies at Discharge: No Stand-Alone Forms: My [facility] [employer], Smoking Cessation Medications and DC Order Prescriptions: New aspirin 81 mg Tablet,Delayed Release (Dr/Ec) 81 mg PO BID 42 Days Qty: 84 RF: 0 lidocaine 5 % Adhesive Patch,Medicated 1 patch transdermal DAILY@1999 30 Days Qty: 30 RF: 0 Continued meloxicam 15 mg tablet 15 mg PO DAILY Qty: 30 RF: 2 amoxicillin 500 mg Capsule 4 cap PO UD PRN (Reason: PRE DENTAL) RF: 0 potassium chloride 10 mEq Capsule, Extended Release 10 meq PO TID RF: 0 atorvastatin 20 mg Tablet 20 mg PO QAM RF: 0 metoprolol succinate 50 mg Tablet Extended Release 24 Hr 50 mg PO QAM RF: 0 lisinopril 20 mg Tablet 20 mg PO QAM RF: 0 alendronate [Fosamax] 70 mg Tablet 1 tab PO WK RF: 0 spironolactone 25 mg Tablet 12.5 tab PO 5XWK RF: 0 lorazepam 0.5 mg Tablet 0.5 mg PO UD PRN (Reason: Anxiety) RF: 0 amlodipine 10 mg Tablet 10 mg PO QAM RF: 0 albuterol sulfate 90 mcg/actuation Hfa Aerosol Inhaler 2 puff INHALATION QID PRN (Reason: SOB) RF: 0 colchicine 0.6 mg Tablet 0.6 mg PO BID PRN (Reason: GOUT) RF: 0 loratadine 10 mg Tablet 10 mg PO DAILY RF: 0 tizanidine 4 mg Capsule 4 mg PO TID PRN (Reason: MUSCLE SPASMS) RF: 0 cholecalciferol (vitamin D3) [Vitamin D3] 2,000 unit Capsule 2,000 unit PO QAM RF: 0 magnesium chloride 64 mg Tablet,Delayed Release (Dr/Ec) 64 mg PO BID RF: 0 ibuprofen 200 mg Tablet 600 tab PO Q8H PRN (Reason: Pain) RF: 0 nystatin 100,000 unit/gram Powder 1 applic TOPICAL TID RF: 0 ondansetron HCl 8 mg tablet 8 mg PO Q8H PRN (Reason: Nausea) RF: 0 Tagrisso 80 mg tablet 80 mg PO DAILY RF: 0 prochlorperazine maleate 10 mg tablet 10 mg PO Q6H PRN (Reason: Nausea) RF: 0 fluticasone propionate 50 mcg/actuation Keyes,Suspension 2 spray INTRANASAL DAILY PRN (Reason: Congestion) RF: 0 Discharge Orders: Discharge Order (Routine); Ordered 12/26/19 Ordered By: Cori Cruz/Other Patient Handouts: High Blood Sugar (Hyperglycemia), Managing Type 2 Diabetes, Diabetes: Meal Planning Admission Data Admit Date/Time: 12/21/19 14:06 Attending Provider: Cori Broderick Admit Provider: Blaine Lane Primary Care Provider: Hank Ivey Other Providers: John Song ; Blaine Lane ; Criss Venegas ; Swathi Alfaro ; Keith Cochran ; Julio Esparza ; Martinez Storey ; Juwan Becerril ; Kimberlee Reynaga ; Daisy Boyd ; Toy Paez ; Marcelo Nunez ; Avinash Mcnair ; Shiraz Ordoñez ; Avinash Givens ; Prosper Gillis V ; Shruthi Lowery ; Keily Samuels [facility] Other Interventions: Discharge Summary Assessment (RN) Last Done: 12/26/19 17:04
== END 2019-12-26 18:47 | disposition home health service (06) | DRG 481 ==
LOC: ED 19:05 → 2W 19:05 → SUATTDRO 23:14 → 2W 23:38

== ENCOUNTER 2021-02-27 16:45 | Observation (INO) ==
--- NOTE | 2021-02-27 17:18 | Emergency Department Note ---
Impression & Plan Pulmonary emboli, Acute hypokalemia, Dehydration ED Provider Note NAME: MELANIE AVILA AGE: 80 SEX: F : 1940 ARRIVES VIA: Walk-In INFORMANT: Patient, ED PROVIDER(S): Live Pham MD Chief Complaint: Outpatient referral for abnormal CT scan HPI: Patient does present with above complaints. The patient had approximately 1 weeks of symptoms with such included some fatigue nausea. Patient is vaccinat ed for Covid. Patient did have bladder completed along with CT of the chest and COVID-19. Patient was told that her Covid was negative. The patient states that her CT was positive for PE. Patient does have a history of lung CA and does take by mouth chemotherapy does follow with Dr. Linton. The patient does follow with Dr. Jones outpatient primary care. Patient has no prior history of DVT or PE. No recent hospitalizations surgeries or procedures. Patient denies any leg swelling. Patient denies any shortness of breath chest pain. Patient has not had any cough. The patient is not noticed any lower extremity edema. Patient states that her symptoms have improved on their own. Patient did not have any specific treatments with regard to her symptoms at the time that she saw her outpatient physician. Blood work was done along with the imaging. ROS: See HPI for pertinent positives and negatives. A total of 10 systems were reviewed and otherwise negative. Past medical history: See below Surgical history: See below Social history: See below Physical Exam: GENERAL: NAD, wearing glasses, wearing a mask, non-toxic. EYE EXAM: Normal conjunctiva. PERRL, no anisocoria and EOM's grossly intact w/o pain. NECK: Supple, no nuchal rigidity, no adenopathy, non-tender. No signs of meningismus. LUNGS: Clear to auscultation. Normal chest wall mechanics. HEART: NSR, no MRG. ABDOMEN: Abdomen soft, non-tender, normo-active bowel sounds, no masses, no rebound or guarding. BACK: No CVA TTP. SKIN: No rashes and no bruising. UPPER EXTREMITIES: Upper extremities are grossly normal. LOWER EXTREMITIES: Grossly normal, no edema. Negative Homans' sign bilaterally. NEURO EXAM: A&O x3, cranial nerves II-XII grossly intact, normal speech, moves all 4 extremities on command w/o issue. Differential diagnoses: PE, Infection, dehydration, metabolic abnormality, hypo/hyperglycemia, electrolyte disturbance, anemia, hypoxia, cardiac sources, intracerebral event, toxicologic, neurologic, as well as other pathologies. Course: Patient was seen and evaluated the bedside. Full history physical exam was performed. EKG interpreted by Sinus bradycardia, rate of 58, normal intervals, normal axis, T wave inversion in lead III, T wave inversions anteriorly. Imaging Studies: CT obtained prior to arrival CHEST CTA for PULMONARY ARTERIES CT DOSE: 436.84 mGycm HISTORY: Shortness of breath TECHNIQUE: Multiaxial CT images of the chest were performed following the intravenous administration of contrast to evaluate the pulmonary arteries. Maximal intensity projection images were also obtained. A dose lowering technique was utilized adhering to the principles of ALARA. COMPARISON STUDY: Chest CT 06/28/2019. FINDINGS: Limited views the upper abdomen demonstrate multiple calcified granulomas within the spleen and normal adrenal glands. Partially visualized right renal hypodense lesion which favors a cyst. There is also a 1.2 cm hypodense lesion within the left hepatic lobe which also favors a cyst. Normal esophagus. Prior left mastectomy. The heart remains borderline enlarged. No pleural or pericardial effusions. No mediastinal or hilar lymphadenopathy. Right subclavian Port-A-Cath terminates at the distal SVC. There are healing right lateral sixth and seventh nondisplaced rib fractures. There is a right total shoulder arthroplasty. No suspicious osseous lesions identified. Normal caliber thoracic aorta with no evidence for dissection. Small linear filling defect seen within a segmental/subsegmental branch of the right upper lobe best seen on image 119 and a small filling defect seen within the subsegmental branch of the right lower lobe on image 73. These are consistent with age indeterminate pulmonary emboli. The remaining pulmonary arteries are patent. No pneumothorax. Suture material and a calcified granuloma again noted within the right lung. The central airways are patent. No focal lung consolidations to suggest pneumonia. A few bibasilar linear densities consistent with subsegmental atelectasis. IMPRESSION: 1. There are 2 small segmental/subsegmental pulmonary emboli seen within the right lung as described above. These are technically age indeterminate. 2. No focal lung consolidations to suggest pneumonia. 3. Stable postoperative changes within the right lung. ACT 112: Negative or not required by law. Electronically signed by: Edgardo Johnston M.D. 02/27/2021 4:07 PM Dictated: 02/27/21 1559Transcribed: 02/27/21 155 Cardiac monitoring: An order was placed for continuous cardiac monitoring. The monitor shows a rate of 72 with sinus rhythm. MDM: Patient was seen as a referral due to concern for outpatient CT which showed PEs. The patient did have blood work completed. Patient has a white count of 7 with normal H&H and platelet count. Kidney function with creatinine 1.4. Mild hypokalemia. Patient's sPESI score is high risk given the patient's history of lung cancer and age. Heparin was ordered. I did speak with the on-call hospitalist Dr. Cifuentes and patient was admitted to the medicine service. Critical Care: I have personally spent 45 minutes of critical care time in direct management of this patient. This includes bedside care, interpretation of diagnostic studies, and testing, discussion with consultants, patient, and family members, and other require inpatient management activities. This 45 minutes is in excess of all separately billable procedures. Past Med/Surg History Medical History (Updated 02/27/21 @ 20:54 by Live Pham MD) Acid reflux Anxiety Asymptomatic hypertensive urgency Gout H/O fracture of femur History of breast cancer S/P CHEMO (LAST CHEMO 2015) History of bronchitis INHALER PRN; NO RECENT ISSUES History of kidney stones History of lung cancer S/P RUL WEDGE RESECTION History of skin cancer History of uterine cancer Hypertension Kidney disease STAGE III Obesity Osteoporosis Prediabetes Rotator cuff arthropathy of left shoulder Vertigo RARE Surgical History History of colonoscopy History of hysterectomy History of left mastectomy History of lung surgery RIGHT LUNG NODULE EXCISION/PARTIAL LUNG RESECTION History of surgery A-PORT (RIGHT) PLACED 2/2 CHEMO History of tonsillectomy and adenoidectomy History of total right knee replacement 05/19/17= SAB X 1 ATTEMPT + PNB AT [facility] Status post reverse arthroplasty of shoulder Family History Mother History of breast cancer History of ovarian cancer Grandmother History of colon cancer Social History Smoking Status: Never smoker Second Hand Exposure: Yes (); Hx Alcohol Use: No Hx Substance Use: No Preferred Language: Malagasy Communication Ability: Effective Head Of Housekeeping Required: No Beliefs That Will Affect Care: None marital status: Current Living Situation: Spouse Feels Safe at Home: Yes Assistive Devices: Walker Allergies Allergies Allergy/AdvReac Type Severity Reaction Status Date / Time castor oil Allergy Unknown ANAPHYLACTI Verified 02/27/21 18:59 C ciprofloxacin Allergy Unknown HIVES Verified 02/27/21 18:59 paclitaxel Allergy Unknown ANAPHYLACTI Verified 02/27/21 18:59 C codeine AdvReac Unknown GI SYMPTOMS Verified 02/27/21 18:59 cyproheptadine AdvReac Unknown lethargy Verified 02/27/21 18:59 doxepin AdvReac Unknown lethargy Verified 02/27/21 18:59 gabapentin AdvReac Unknown GI SYMPTOMS Verified 02/27/21 18:59 hydrocodone AdvReac Unknown GI SYMPTOMS Verified 02/27/21 18:59 meloxicam AdvReac Unknown dizzy,heada Verified 02/27/21 18:59 michael,nausea oxycodone AdvReac Unknown GI SYMPTOMS Verified 02/27/21 18:59 prednisone AdvReac Unknown ELEVATED Verified 02/27/21 18:59 GLUCOSE tramadol AdvReac Unknown GI SYMPTOMS Verified 02/27/21 18:59 Home Meds Home Medications Medication Instructions Recorded Confirmed albuterol sulfate 90 mcg/actuation 2 puff INHALATION QID PRN 06/23/18 02/27/21 aerosol inhaler amlodipine 10 mg tablet 10 mg PO QAM 06/23/18 02/27/21 atorvastatin 20 mg tablet 20 mg PO QAM 06/23/18 02/27/21 cholecalciferol (vitamin D3) 50 2,000 unit PO QAM 06/23/18 02/27/21 mcg (2,000 unit) capsule (Vitamin D3) colchicine 0.6 mg tablet 0.6 mg PO BID PRN 06/23/18 02/27/21 ibuprofen 200 mg tablet 600 tab PO Q8H PRN 06/23/18 02/27/21 lisinopril 20 mg tablet 20 mg PO QAM 06/23/18 02/27/21 loratadine 10 mg tablet 10 mg PO DAILY 06/23/18 02/27/21 lorazepam 0.5 mg tablet 0.5 mg PO DAILY PRN 06/23/18 02/27/21 magnesium chloride 64 mg 64 mg PO BID 06/23/18 02/27/21 (magnesium chloride) tablet,delayed release metoprolol succinate 50 mg 50 mg PO QAM 06/23/18 02/27/21 tablet,extended release 24 hr potassium chloride 10 mEq 10 meq PO TID 06/23/18 02/27/21 capsule,extended release spironolactone 25 mg tablet 12.5 mg PO 5XWK 06/23/18 02/27/21 tizanidine 4 mg capsule 4 mg PO TID PRN 06/23/18 02/27/21 fluticasone propionate 50 2 spray INTRANASAL DAILY PRN 12/19/19 02/27/21 mcg/actuation nasal spray,suspension ondansetron HCl 8 mg tablet 8 mg PO Q8H PRN 12/19/19 02/27/21 osimertinib 80 mg tablet (Tagrisso) 80 mg PO DAILY 12/19/19 02/27/21 prochlorperazine maleate 10 mg 10 mg PO Q6H PRN 12/19/19 02/27/21 tablet Results & Data (ED) Vital Signs Vital Signs - 24 hr 02/27/21 17:22 02/27/21 17:32 02/27/21 17:35 Pulse Rate 69 88 60 Pulse Rate from SpO2 Sensor 60 Pulse Rhythm Regular Respiratory Rate 24 20 18 Respiratory Effort / Characteristics Non-Labored Spontaneous Respiratory Depth Normal Respiratory Pattern Regular Blood Pressure 182/69 H Blood Pressure Mean 106 Pulse Oximetry 97 99 97 Oxygen Delivery Method Room Air Room Air Sepsis Recent Fever Within 48 Hours No Sepsis New/Unexplained Change in Mental Status N/A Sepsis Action Taken by Nursing No Action Required 02/27/21 17:40 02/27/21 17:50 02/27/21 18:00 Pulse Rate 65 60 92 H Pulse Rate from SpO2 Sensor 59 L 60 60 Pulse Rhythm Respiratory Rate 18 23 30 H Respiratory Effort / Characteristics Respiratory Depth Respiratory Pattern Blood Pressure Blood Pressure Mean Pulse Oximetry 97 95 97 Oxygen Delivery Method Sepsis Recent Fever Within 48 Hours Sepsis New/Unexplained Change in Mental Status Sepsis Action Taken by Nursing 02/27/21 18:10 02/27/21 18:20 02/27/21 18:30 Pulse Rate 72 72 65 Pulse Rate from SpO2 Sensor 59 L 56 L 61 Pulse Rhythm Respiratory Rate 18 21 19 Respiratory Effort / Characteristics Respiratory Depth Respiratory Pattern Blood Pressure Blood Pressure Mean Pulse Oximetry 96 96 96 Oxygen Delivery Method Sepsis Recent Fever Within 48 Hours Sepsis New/Unexplained Change in Mental Status Sepsis Action Taken by Nursing 02/27/21 19:30 Pulse Rate 55 L Pulse Rate from SpO2 Sensor 55 L Pulse Rhythm Respiratory Rate 15 Respiratory Effort / Characteristics Respiratory Depth Respiratory Pattern Blood Pressure 159/61 H Blood Pressure Mean 93 Pulse Oximetry 96 Oxygen Delivery Method Room Air Sepsis Recent Fever Within 48 Hours Sepsis New/Unexplained Change in Mental Status Sepsis Action Taken by Care Home Medications Current Medication List: was personally reviewed by me Laboratory Data Attestation: I reviewed the patient's lab results. Result diagrams: 02/27/21 17:48 02/27/21 17:48 Lab Results 02/27/21 02/27/21 02/27/21 Range/Units 17:48 17:48 17:48 WBC 7.03 (4.8-10.8) K/uL RBC 4.24 (4.2-5.4) M/uL Hgb 12.9 (12.0-16.0) g/dL Hct 37.3 (37-47) % MCV 88.0 (80-100) fL MCH 30.4 (25-34) pg MCHC 34.6 (32-36) g/dL RDW Std Deviation 46.6 H (36.4-46.3) fL RDW Coeff of Thien 14.3 (11.5-14.5) % Plt Count 189 (130-400) K/uL MPV 10.4 (7.4-10.4) fL Immature Gran % (Auto) 0.3 % Neut % (Auto) 59.3 % Lymph % (Auto) 28.6 % [place] % (Auto) 8.1 % Eos % (Auto) 3.6 % Baso % (Auto) 0.1 % Neut # (Auto) 4.17 (1.4-6.5) K/uL Lymph # (Auto) 2.01 (1.2-3.4) K/uL [place] # (Auto) 0.57 (0.11-0.59) K/uL Eos # (Auto) 0.25 (0-0.5) K/uL Baso # (Auto) 0.01 (0-0.2) K/uL Immature Gran # (Auto) 0.02 (0.00-0.02) K/uL PT 10.5 (9.0-12.0) Seconds INR 1.0 (0.9-1.1) APTT 24.3 (21.0-31.0) Seconds PTT Ratio 0.9 Sodium 141 (136-145) mmol/L Potassium 3.4 L (3.5-5.1) mmol/L Chloride 109 H (98-107) mmol/L Carbon Dioxide 25 (21-32) mmol/L Anion Gap 7.0 (3-11) BUN 28 H (7-18) mg/dl Creatinine 1.49 H (0.6-1.2) mg/dl Est Cr Clr Drug Dosing Not Reportable Est GFR ( Amer) 38.1 ml/min Est GFR (Non-Af Amer) 32.8 ml/min BUN/Creatinine Ratio 18.8 (10-20) Glucose 88 (70-99) mg/dl Calcium 9.0 (8.5-10.1) mg/dl Magnesium 2.0 (1.8-2.4) mg/dl Total Bilirubin 0.5 (0.2-1) mg/dl AST 13 L (15-37) U/L ALT 14 (12-78) U/L Alkaline Phosphatase 70 (45-117) U/L Troponin I < 0.015 (0-0.045) ng/ml Total Protein 6.2 L (6.4-8.2) gm/dl Albumin 3.6 (3.4-5.0) gm/dl Globulin 2.6 (2.5-4.0) gm/dl Albumin/Globulin Ratio 1.4 (0.9-2) TSH 0.637 (0.300-4.500) uIu/ml COVID-19 Eval Order SARS-CoV-2 (PCR) (Negative) 02/27/21 02/27/21 02/27/21 Range/Units 17:48 17:48 17:48 WBC (4.8-10.8) K/uL RBC (4.2-5.4) M/uL Hgb (12.0-16.0) g/dL Hct (37-47) % MCV (80-100) fL MCH (25-34) pg MCHC (32-36) g/dL RDW Std Deviation (36.4-46.3) fL RDW Coeff of Thien (11.5-14.5) % Plt Count (130-400) K/uL MPV (7.4-10.4) fL Immature Gran % (Auto) % Neut % (Auto) % Lymph % (Auto) % [place] % (Auto) % Eos % (Auto) % Baso % (Auto) % Neut # (Auto) (1.4-6.5) K/uL Lymph # (Auto) (1.2-3.4) K/uL [place] # (Auto) (0.11-0.59) K/uL Eos # (Auto) (0-0.5) K/uL Baso # (Auto) (0-0.2) K/uL Immature Gran # (Auto) (0.00-0.02) K/uL PT (9.0-12.0) Seconds INR (0.9-1.1) APTT (21.0-31.0) Seconds PTT Ratio Sodium (136-145) mmol/L Potassium (3.5-5.1) mmol/L Chloride (98-107) mmol/L Carbon Dioxide (21-32) mmol/L Anion Gap (3-11) BUN (7-18) mg/dl Creatinine (0.6-1.2) mg/dl Est Cr Clr Drug Dosing Est GFR ( Amer) ml/min Est GFR (Non-Af Amer) ml/min BUN/Creatinine Ratio (10-20) Glucose (70-99) mg/dl Calcium (8.5-10.1) mg/dl Magnesium Cancelled (1.8-2.4) mg/dl Total Bilirubin (0.2-1) mg/dl AST (15-37) U/L ALT (12-78) U/L Alkaline Phosphatase (45-117) U/L Troponin I (0-0.045) ng/ml Total Protein (6.4-8.2) gm/dl Albumin (3.4-5.0) gm/dl Globulin (2.5-4.0) gm/dl Albumin/Globulin Ratio (0.9-2) TSH (0.300-4.500) uIu/ml COVID-19 Eval Order Covid19 at [facility] SARS-CoV-2 (PCR) NEGATIVE (Negative) Discharge Plan Visit Data Chief Complaint: Abnormal Labs/Diagnostic Testing Stated Complaint: CT SCAN BLOOD CLOT IN LUNGS ED Provider: Live Pham Discharge Problem: Pulmonary emboli, Acute hypokalemia, Dehydration Patient Disposition: Admitted As Inpatient Prescriptions Prescriptions: No Action potassium chloride 10 mEq Capsule, Extended Release 10 meq PO TID RF: 0 atorvastatin 20 mg Tablet 20 mg PO QAM RF: 0 metoprolol succinate 50 mg Tablet Extended Release 24 Hr 50 mg PO QAM RF: 0 lisinopril 20 mg Tablet 20 mg PO QAM RF: 0 spironolactone 25 mg Tablet 12.5 mg PO 5XWK RF: 0 lorazepam 0.5 mg Tablet 0.5 mg PO DAILY PRN (Reason: Anxiety) RF: 0 amlodipine 10 mg Tablet 10 mg PO QAM RF: 0 albuterol sulfate 90 mcg/actuation Hfa Aerosol Inhaler 2 puff INHALATION QID PRN (Reason: SOB) RF: 0 colchicine 0.6 mg Tablet 0.6 mg PO BID PRN (Reason: GOUT) RF: 0 loratadine 10 mg Tablet 10 mg PO DAILY RF: 0 tizanidine 4 mg Capsule 4 mg PO TID PRN (Reason: MUSCLE SPASMS) RF: 0 cholecalciferol (vitamin D3) [Vitamin D3] 2,000 unit Capsule 2,000 unit PO QAM RF: 0 magnesium chloride 64 mg Tablet,Delayed Release (Dr/Ec) 64 mg PO BID RF: 0 ibuprofen 200 mg Tablet 600 tab PO Q8H PRN (Reason: Pain) RF: 0 ondansetron HCl 8 mg tablet 8 mg PO Q8H PRN (Reason: Nausea) RF: 0 Tagrisso 80 mg tablet 80 mg PO DAILY RF: 0 prochlorperazine maleate 10 mg tablet 10 mg PO Q6H PRN (Reason: Nausea) RF: 0 fluticasone propionate 50 mcg/actuation [place],Suspension 2 spray INTRANASAL DAILY PRN (Reason: Congestion) RF: 0 Referrals Referrals: Hank Ivey, [Primary Care Provider] - Discharge Problem: Pulmonary emboli Qualifiers: Pulmonary embolism type: unspecified Chronicity: acute Acute cor pulmonale presence: unspecified Qualified Code(s): I26.99 - Other pulmonary embolism without acute cor pulmonale
[2021-02-27 18:08] LABS: Basophils # (auto) 0.01 K/uL (0-0.2); Basophils % (auto) 0.1 %; Eosinophils # (auto) 0.25 K/uL (0-0.5); Eosinophils % (auto) 3.6 %; Hematocrit (blood only) 37.3 % (37-47); Hemoglobin 12.9 g/dL (12.0-16.0); Immature Granulocytes # (auto) 0.02 K/uL (0.00-0.02); Immature Granulocytes % (auto) 0.3 %; Lymphocytes # (auto) 2.01 K/uL (1.2-3.4); Lymphocytes % (auto) 28.6 %; Mean Corpuscular Hemoglobin 30.4 pg (25-34); Mean Corpuscular Hgb Conc 34.6 g/dL (32-36); Mean Platelet Volume 10.4 fL (7.4-10.4); Monocytes # (auto) 0.57 K/uL (0.11-0.59); Monocytes % (auto) 8.1 %; Neutrophils # (auto) 4.17 K/uL (1.4-6.5); Neutrophils % (auto) 59.3 %; Platelet Count 189 K/uL (130-400); RDW Coefficient of Variation 14.3 % (11.5-14.5); RDW Standard Deviation 46.6 fL (36.4-46.3); Red Blood Count 4.24 M/uL (4.2-5.4); White Blood Count 7.03 K/uL (4.8-10.8)
[2021-02-27 18:17] LABS: Partial Thromboplastin Ratio 0.9; Partial Thromboplastin Time 24.3 Seconds (21.0-31.0); Prothrombin Time 10.5 Seconds (9.0-12.0)
[2021-02-27 18:26] LABS: Alanine Aminotransferase 14 U/L (12-78); Albumin Level 3.6 gm/dl (3.4-5.0); Aspartate Aminotransferase 13 U/L (15-37); BUN Creatinine Ratio 18.8 (10-20); Blood Urea Nitrogen 28 mg/dl (7-18); Carbon Dioxide 25 mmol/L (21-32); Chloride 109 mmol/L (98-107); Est GFR (African American) 38.1 ml/min; Est GFR (Non-African American) 32.8 ml/min; Glucose 88 mg/dl (70-99); Potassium 3.4 mmol/L (3.5-5.1); Sodium 141 mmol/L (136-145)
[2021-02-27 18:36] LABS: Albumin Globulin Ratio 1.4 (0.9-2); Alkaline Phosphatase 70 U/L (45-117); Bilirubin,Total 0.5 mg/dl (0.2-1); Globulin 2.6 gm/dl (2.5-4.0); Thyroid Stimulating Hormone 0.637 uIu/ml (0.300-4.500); Total Protein 6.2 gm/dl (6.4-8.2); Troponin I < 0.015 ng/ml (0-0.045)
[2021-02-27] MEDS ORDERED: Heparin IV Adult Wt-Based Standard *NO* Bolus Protocol ONE (19:24)
[2021-02-27] MEDS ORDERED: POTASSIUM CHLORIDE CRTAB 20 MEQ TABCR PO STA (19:42)
[2021-02-27] MEDS ORDERED: HEPARIN SODIUM/DEXTROSE 25,000 UNITS/500 ML BAG IV SCH (19:45)
[2021-02-27] MEDS ORDERED: POTASSIUM CHLORIDE 40 MEQ in SODIUM CHLORIDE 0.45 % 1,000 ML IV ONE (20:48)
--- NOTE | 2021-02-27 20:51 | History & Physical Report ---
Date of Service February 27, 2021 Assessment & Plan (1) Pulmonary emboli: Plan: First occurrence Patient predisposed by recurrent NSCLC status post surgery ongoing chemotherapy Rule out LE DVT as source HTN, slight elevated Hypokalemia, ARF ON CKD, mild clinical dehydration paroxysmal AFib, patient NSR hx breast cancer, L sp surgery and chemotherapy, history of BRCA gene mutation uterine cancer sp surgery/chemotx DM2 diet controlled, well-controlled as of recent outpatient hemoglobin A1c of 5.7 last October 2020 Hypokalemia secondary to recent diarrheal illness Medical telemetry IV Heparin LE venous Dopplers rule out DVT Request a.m. provider to contact patient's [facility] oncologist (Dr. Linton) to ask for recommendations regarding home anticoagulation given malignancy history Baseline UA, monitor creatinine response to IVF, appropriate to hold home OTONIEL inhibitor, diuretics until creatinine back to baseline ISS BG goal 1 10-1 40 DVT prophylaxis. Heparin Full code Text document was generated using [employer] voice recognition software. It may contain grammatical or spelling errors. Kindly contact undersigned for clarification of any documentation item in question. History of Present Illness Chief Complaint: Left upper leg pain Primary Care Provider: Hank Ivey DO History obtained from patient, family, and records. Medical history significant for hypertension, paroxysmal AFib, hx BRCA gene mutation, recurrent NSCLC status post surgery ongoing chemotherapy, breast cancer, L sp surgery and chemotherapy, uterine cancer sp surgery/chemotx, DM2 diet-controlled, CRI (baseline creatinine 1.3), mood disorder Last confinement December 2019 for stress fracture of the left femur status post surgery. 1 week history of fatigue, nausea symptoms with usual exertional shortness of breath. No chest pain. Transient diarrheal illness without abdominal pain. No cough symptoms. No known recent COVID-19 contacts. Patient sent for outpatient CT of the chest after abnormal D-dimer noted with o utpatient blood work. Patient directed to ER with CT chest showing pulmonary embolism. IV heparin started at the ER. MEDICAL HISTORY: As above. SURGERIES: She has had A-port placement, hysterectomy, tubal ligation, tonsillectomy, adenoidectomy, carpal tunnel surgery, knee surgery, urologic procedures, eye surgery, shoulder surgery, modified radical mastectomy left, thoracoscopy/lung surgery, cataract surgery, femoral fracture surgery FAMILY HISTORY: There is a family history of breast cancer, colon cancer, dementia. PERSONAL AND SOCIAL HISTORY: Nonsmoker, no chronic intake of alcoholic beverages. 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 History of Present Illness Chief Complaint: Fatigue, weakness Primary Care Provider: Hank Ivey DO Allergies Allergy/AdvReac Type Severity Reaction Status Date / Time castor oil Allergy Unknown ANAPHYLACTI Verified 02/27/21 18:59 C ciprofloxacin Allergy Unknown HIVES Verified 02/27/21 18:59 paclitaxel Allergy Unknown ANAPHYLACTI Verified 02/27/21 18:59 C codeine AdvReac Unknown GI SYMPTOMS Verified 02/27/21 18:59 cyproheptadine AdvReac Unknown lethargy Verified 02/27/21 18:59 doxepin AdvReac Unknown lethargy Verified 02/27/21 18:59 gabapentin AdvReac Unknown GI SYMPTOMS Verified 02/27/21 18:59 hydrocodone AdvReac Unknown GI SYMPTOMS Verified 02/27/21 18:59 meloxicam AdvReac Unknown dizzy,heada Verified 02/27/21 18:59 michael,nausea oxycodone AdvReac Unknown GI SYMPTOMS Verified 02/27/21 18:59 prednisone AdvReac Unknown ELEVATED Verified 02/27/21 18:59 GLUCOSE tramadol AdvReac Unknown GI SYMPTOMS Verified 02/27/21 18:59 Home Medications Medication Instructions Recorded Confirmed Type albuterol sulfate 90 mcg/actuation 2 puff INHALATION QID PRN 06/23/18 02/27/21 History aerosol inhaler amlodipine 10 mg tablet 10 mg PO QAM 06/23/18 02/27/21 History atorvastatin 20 mg tablet 20 mg PO QAM 06/23/18 02/27/21 History cholecalciferol (vitamin D3) 50 2,000 unit PO QAM 06/23/18 02/27/21 History mcg (2,000 unit) capsule (Vitamin D3) colchicine 0.6 mg tablet 0.6 mg PO BID PRN 06/23/18 02/27/21 History ibuprofen 200 mg tablet 600 tab PO Q8H PRN 06/23/18 02/27/21 History lisinopril 20 mg tablet 20 mg PO QAM 06/23/18 02/27/21 History loratadine 10 mg tablet 10 mg PO DAILY 06/23/18 02/27/21 History lorazepam 0.5 mg tablet 0.5 mg PO DAILY PRN 06/23/18 02/27/21 History magnesium chloride 64 mg 64 mg PO BID 06/23/18 02/27/21 History (magnesium chloride) tablet,delayed release metoprolol succinate 50 mg 50 mg PO QAM 06/23/18 02/27/21 History tablet,extended release 24 hr potassium chloride 10 mEq 10 meq PO TID 06/23/18 02/27/21 History capsule,extended release spironolactone 25 mg tablet 12.5 mg PO 5XWK 06/23/18 02/27/21 History tizanidine 4 mg capsule 4 mg PO TID PRN 06/23/18 02/27/21 History fluticasone propionate 50 2 spray INTRANASAL DAILY PRN 12/19/19 02/27/21 History mcg/actuation nasal spray,suspension ondansetron HCl 8 mg tablet 8 mg PO Q8H PRN 12/19/19 02/27/21 History osimertinib 80 mg tablet (Tagrisso) 80 mg PO DAILY 12/19/19 02/27/21 History prochlorperazine maleate 10 mg 10 mg PO Q6H PRN 12/19/19 02/27/21 History tablet Past Med/Surg History Medical History (Updated 02/27/21 @ 20:54 by Live Pham MD) Acid reflux Anxiety Asymptomatic hypertensive urgency Gout H/O fracture of femur History of breast cancer S/P CHEMO (LAST CHEMO 2015) History of bronchitis INHALER PRN; NO RECENT ISSUES History of kidney stones History of lung cancer S/P RUL WEDGE RESECTION History of skin cancer History of uterine cancer Hypertension Kidney disease STAGE III Obesity Osteoporosis Prediabetes Rotator cuff arthropathy of left shoulder Vertigo RARE Surgical History History of colonoscopy History of hysterectomy History of left mastectomy History of lung surgery RIGHT LUNG NODULE EXCISION/PARTIAL LUNG RESECTION History of surgery A-PORT (RIGHT) PLACED 2/2 CHEMO History of tonsillectomy and adenoidectomy History of total right knee replacement 05/19/17= SAB X 1 ATTEMPT + PNB AT [facility] Status post reverse arthroplasty of shoulder Family History Mother History of breast cancer History of ovarian cancer Grandmother History of colon cancer Social History Smoking Status: Never smoker Second Hand Exposure: Yes (); Hx Alcohol Use: No Hx Substance Use: No Preferred Language: Turkish Communication Ability: Effective Mangle Feeder Required: No Beliefs That Will Affect Care: None marital status: Current Living Situation: Spouse Current Living Situation Comment: lives in house Feels Safe at Home: Yes Safety Concerns: Feels Safe At This Time Assistive Devices: Glasses Review of Systems Review of Systems: As per HPI, all 10 systems reviewed, all other ROS negative Physical Exam Physical Exam: GENERAL: Comfortable, pleasant, mild hearing impairment, no respiratory distress SKIN: Normal color, warm HEENT: [place] palpebral conjunctivae, no ptosis, dry buccal mucosa NECK : Supple, no tenderness CHEST : CTA, no tenderness HEART : Bradycardic, no obvious murmurs ABDOMEN: Some distention, nontender EXTREMITIES : No LE swelling/tenderness, no other conspicuous deformities noted NEUROLOGIC : Coherent, no facial asymmetry, mild hearing impairment, no other gross focality Results & Data Results & Data ([facility]) Vital Signs (Past 12 Hours) Vital Signs Pulse Resp BP Pulse Ox 02/27/21 19:30 55 L 15 159/61 H 96 02/27/21 18:30 65 19 96 02/27/21 18:20 72 21 96 02/27/21 18:10 72 18 96 02/27/21 18:00 92 H 30 H 97 02/27/21 17:50 60 23 95 02/27/21 17:40 65 18 97 02/27/21 17:35 60 18 97 02/27/21 17:32 88 20 99 02/27/21 17:22 69 24 182/69 H 97 Laboratory Results Laboratory Results WBC 7.03 K/uL (4.8-10.8) 02/27/21 17:48 RBC 4.24 M/uL (4.2-5.4) 02/27/21 17:48 Hgb 12.9 g/dL (12.0-16.0) 02/27/21 17:48 Hct 37.3 % (37-47) 02/27/21 17:48 MCV 88.0 fL (80-100) 02/27/21 17:48 MCH 30.4 pg (25-34) 02/27/21 17:48 MCHC 34.6 g/dL (32-36) 02/27/21 17:48 RDW Std Deviation 46.6 fL (36.4-46.3) H 02/27/21 17:48 RDW Coeff of Thien 14.3 % (11.5-14.5) 02/27/21 17:48 Plt Count 189 K/uL (130-400) 02/27/21 17:48 MPV 10.4 fL (7.4-10.4) 02/27/21 17:48 Immature Gran % (Auto) 0.3 % 02/27/21 17:48 Neut % (Auto) 59.3 % 02/27/21 17:48 Lymph % (Auto) 28.6 % 02/27/21 17:48 [place] % (Auto) 8.1 % 02/27/21 17:48 Eos % (Auto) 3.6 % 02/27/21 17:48 Baso % (Auto) 0.1 % 02/27/21 17:48 Neut # (Auto) 4.17 K/uL (1.4-6.5) 02/27/21 17:48 Lymph # (Auto) 2.01 K/uL (1.2-3.4) 02/27/21 17:48 [place] # (Auto) 0.57 K/uL (0.11-0.59) 02/27/21 17:48 Eos # (Auto) 0.25 K/uL (0-0.5) 02/27/21 17:48 Baso # (Auto) 0.01 K/uL (0-0.2) 02/27/21 17:48 Immature Gran # (Auto) 0.02 K/uL (0.00-0.02) 02/27/21 17:48 PT 10.5 Seconds (9.0-12.0) 02/27/21 17:48 INR 1.0 (0.9-1.1) 02/27/21 17:48 APTT 24.3 Seconds (21.0-31.0) 02/27/21 17:48 PTT Ratio 0.9 02/27/21 17:48 Sodium 141 mmol/L (136-145) 02/27/21 17:48 Potassium 3.4 mmol/L (3.5-5.1) L 02/27/21 17:48 Chloride 109 mmol/L (98-107) H 02/27/21 17:48 Carbon Dioxide 25 mmol/L (21-32) 02/27/21 17:48 Anion Gap 7.0 (3-11) 02/27/21 17:48 BUN 28 mg/dl (7-18) H 02/27/21 17:48 Creatinine 1.49 mg/dl (0.6-1.2) H 02/27/21 17:48 Est Cr Clr Drug Dosing Not Reportable 02/27/21 17:48 Est GFR ( Amer) 38.1 ml/min 02/27/21 17:48 Est GFR (Non-Af Amer) 32.8 ml/min 02/27/21 17:48 BUN/Creatinine Ratio 18.8 (10-20) 02/27/21 17:48 Glucose 88 mg/dl (70-99) 02/27/21 17:48 Calcium 9.0 mg/dl (8.5-10.1) 02/27/21 17:48 Magnesium 2.0 mg/dl (1.8-2.4) 02/27/21 17:48 Magnesium Cancelled 02/27/21 17:48 Total Bilirubin 0.5 mg/dl (0.2-1) 02/27/21 17:48 AST 13 U/L (15-37) L 02/27/21 17:48 ALT 14 U/L (12-78) 02/27/21 17:48 Alkaline Phosphatase 70 U/L (45-117) 02/27/21 17:48 Troponin I < 0.015 ng/ml (0-0.045) 02/27/21 17:48 Total Protein 6.2 gm/dl (6.4-8.2) L 02/27/21 17:48 Albumin 3.6 gm/dl (3.4-5.0) 02/27/21 17:48 Globulin 2.6 gm/dl (2.5-4.0) 02/27/21 17:48 Albumin/Globulin Ratio 1.4 (0.9-2) 02/27/21 17:48 TSH 0.637 uIu/ml (0.300-4.500) 02/27/21 17:48 COVID-19 Eval Order Covid19 at [facility] 02/27/21 17:48 SARS-CoV-2 (PCR) NEGATIVE (Negative) 02/27/21 17:[address] chest: 1. There are 2 small segmental/subsegmental pulmonary emboli seen within the right lung as described above. These are technically age indeterminate. 2. No focal lung consolidations to suggest pneumonia. 3. Stable postoperative changes within the right lung. EKG as per my interpretation rate 55, sinus bradycardia, LAD, LAFB, T wave abnormalities inferior and septal leads Code Status & VTE Plan VTE Prophylaxis Plan VTE Prophylaxis will be ordered: Yes (1) Pulmonary emboli Acute cor pulmonale presence: unspecified Chronicity: acute Pulmonary embolism type: unspecified Qualified Code(s): I26.99 - Other pulmonary embolism without acute cor pulmonale
[2021-02-27 21:28] LABS: Lyme Ab IgG w/WB Rflx Negative (Negative)
[2021-02-27 21:29] LABS: Lyme Ab IgM w/WB Rflx Negative (Negative)
[2021-02-27] MEDS ORDERED: tiZANidine HCL 4 MG TABLET PO PRN (22:49)
[2021-02-27] MEDS ORDERED: traMADol HCL 50 MG TABLET PO PRN (22:49)
[2021-02-27] MEDS ORDERED: PROMETHAZINE HCL 12.5 MG in SODIUM CHLORIDE 0.9% 50 ML IV PRN (22:49)
[2021-02-27] MEDS ORDERED: ACETAMINOPHEN 325 MG TAB PO PRN (22:49)
[2021-02-27] MEDS ORDERED: LORazepam 0.5 MG TAB PO PRN (22:49)
[2021-02-28 04:58] LABS: Partial Thromboplastin Ratio 3.1
[2021-02-28 05:02] LABS: BUN Creatinine Ratio 20.4 (10-20); Calcium 8.7 mg/dl (8.5-10.1); Creatinine Clr Calc Pharmacy 38.4 ml/min; Est GFR (Non-African American) 41.4 ml/min; Potassium 3.6 mmol/L (3.5-5.1)
[2021-02-28 05:32] LABS: Basophils # (auto) 0.02 K/uL (0-0.2); Basophils % (auto) 0.3 %; Eosinophils # (auto) 0.26 K/uL (0-0.5); Eosinophils % (auto) 3.3 %; Hematocrit (blood only) 34.3 % (37-47); Hemoglobin 11.8 g/dL (12.0-16.0); Immature Granulocytes # (auto) 0.01 K/uL (0.00-0.02); Immature Granulocytes % (auto) 0.1 %; Lymphocytes # (auto) 2.62 K/uL (1.2-3.4); Lymphocytes % (auto) 33.4 %; Mean Corpuscular Hgb Conc 34.4 g/dL (32-36); Mean Platelet Volume 11.8 fL (7.4-10.4); Monocytes # (auto) 0.67 K/uL (0.11-0.59); Monocytes % (auto) 8.5 %; Neutrophils # (auto) 4.27 K/uL (1.4-6.5); Neutrophils % (auto) 54.4 %; Platelet Count 215 K/uL (130-400); RDW Coefficient of Variation 14.3 % (11.5-14.5); RDW Standard Deviation 47.3 fL (36.4-46.3); Red Blood Count 3.81 M/uL (4.2-5.4); White Blood Count 7.85 K/uL (4.8-10.8)
[2021-02-28 05:36] LABS: Partial Thromboplastin Time 80.9 Seconds (21.0-31.0)
[2021-02-28] MEDS ORDERED: GLUCAGON FOR INJ 1 MG VIAL SQ PRN (06:31)
[2021-02-28] MEDS ORDERED: CARBOHYDRATES FOR HYPOGLYCEMIA PO PRN (06:31)
[2021-02-28] MEDS ORDERED: DEXTROSE 50% 50 ML SYRINGE IV PRN (06:31)
[2021-02-28] MEDS ORDERED: GLUCOSE 40% GEL 15 GM TUBE PO PRN (06:31)
[2021-02-28] MEDS ORDERED: GLUCOSE 10 TABS/TUBE PO PRN (06:31)
--- NOTE | 2021-02-28 06:32 | Ultrasound Report ---
BILATERAL LOWER EXTREMITY VENOUS DOPPLER HISTORY: Acute shortness of breath with pulmonary emboli. pe workup COMPARISON STUDY: 12/19/2019 Doppler FINDINGS: There is normal compressibility, flow, and augmentation within the bilateral lower extremit y deep venous systems. IMPRESSION: No DVT within the right or left lower extremity. ACT 112: Negative or not required by law. Electronically signed by: Mendel Bagley M.D. 02/28/2021 6:31 AM
[2021-02-28] MEDS: LORATADINE 10 MG TAB PO SCH (08:19)
[2021-02-28] MEDS: METOPROLOL SUCC 50MG EXT REL TAB PO SCH (08:19)
[2021-02-28] MEDS: amLODIPine BESYLATE 5 MG TAB PO SCH (08:20)
[2021-02-28] MEDS: ATORVASTATIN 20 MG TAB PO SCH (08:20)
[2021-02-28] MEDS: INSULIN ASPART 100 UNITS/ML 3 ML PEN SC SCH ×2 (08:21→12:55)
[2021-02-28 12:38] LABS: Partial Thromboplastin Ratio 2.5
[2021-02-28 12:47] LABS: Partial Thromboplastin Time 66.9 Seconds (21.0-31.0)
--- NOTE | 2021-02-28 14:12 | Hospitalist Progress Note ---
Date of Service February 28, 2021 Assessment & Plan (1) Pulmonary emboli: Plan: Age Indeterminate Right Lung PE NSCLC status post surgery ongoing chemotherapy -- CT chest: noted -- Doppler US: no DVT -- discussed with Dr. Linton transition from Heparin to Eliquis -- continue to monitor HTN -- monitor Hypokalemia, ARF ON CKD -- resolved Paroxysmal AFib, patient NSR hx breast cancer, L sp surgery and chemotherapy, history of BRCA gene mutation uterine cancer sp surgery/chemotx DM2 diet controlled, well-controlled as of recent outpatient hemoglobin A1c of 5.7 last October 2020 DVT prophylaxis.Eliquis Full code plan of care discussed with patient in detail and at length all questions answered she is understanding, agreeable, comfortable with the plan of care Admission and Anticipated Discharge Date Admission Date: February 27, 2021 Subjective ff up for acute PE, etc seen resting in bedside chair comfortable states she feels fine overall no chest pain, dyspnea, palpitations, dizziness no bleeding no other symptoms Review of Systems Review of Systems: all noted and negative except for above Physical Exam Physical Exam: General- oriented x 3, not in distress, speaks in sentences with no effort or accessory muscle use Head- atraumatic Eyes- PERRL, EOMI, anicteric ENT- oropharynx clear Neck- supple, no JVD, no adenopathy, no thyromegaly; carotids +2/2, no bruits appreciated Lungs- clear to auscultation bilaterally, no rales/wheezes Heart- normal rate, regular rhythm; no murmur, no gallop, no rub appreciated Abdomen- normal bowel sounds, nondistended, soft, nontender, no masses or hepatosplenomegaly Extremities- no pretibial edema, no calf tenderness; peripheral pulses intact Neuro- alert, oriented x 3; CN 2-12 grossly intact; motor 5/5 bilaterally;sensation 100% on all extremities; no other gross focal neurologic deficits Skin- warm & dry Results & Data Results & Data ([facility]) Vital Signs (Past 12 Hours) Vital Signs Temp Pulse Pulse Resp BP Pulse Ox 02/28/21 11:41 37.0 C 64 16 144/81 H 97 02/28/21 07:23 36.6 C 74 18 129/72 93 02/28/21 07:21 65 02/28/21 04:41 36.9 C 65 18 149/78 H 94 all noted and reviewed including below (1) Pulmonary emboli Acute cor pulmonale presence: unspecified Chronicity: acute Pulmonary embolism type: unspecified Qualified Code(s): I26.99 - Other pulmonary embolism without acute cor pulmonale
[2021-02-28] MEDS: APIXABAN 5 MG TABLET PO SCH ×2 (15:14→22:49)
[2021-02-28 19:36] LABS: Partial Thromboplastin Time 52.7 Seconds (21.0-31.0)
[2021-02-28] MEDS: lisinopril 20 MG TAB PO SCH (20:21)
[2021-02-28] MEDS ORDERED: HEPARIN 100 UNIT/ML 5ML FLUSH FLUSH PRN (22:47)
--- NOTE | 2021-03-01 05:53 | Electrocardiogram Report ---
Test Reason : Blood Pressure : / mmHG Vent. Rate : 056 BPM Atrial Rate : 056 BPM P-R Int : 142 ms QRS Dur : 080 ms QT Int : 474 ms P-R-T Axes : 043 -16 010 degrees QTc Int : 457 ms Poor data quality, interpretation may be adversely affected Sinus bradycardia T wave abnormality, consider anterior ischemia Abnormal ECG When compared with ECG of 19-DEC-2019 19:33, Inverted T waves have replaced nonspecific T wave abnormality in Anterior leads Confirmed by Vega Nunez ([id number]) on 03/01/2021 5:53:00 AM Referred By: Hank Ivey Confirmed By:Vega Nunez
[2021-03-01 08:45] LABS: Basophils # (auto) 0.01 K/uL (0-0.2); Basophils % (auto) 0.2 %; Eosinophils # (auto) 0.17 K/uL (0-0.5); Hematocrit (blood only) 35.6 % (37-47); Hemoglobin 12.3 g/dL (12.0-16.0); Immature Granulocytes # (auto) 0.01 K/uL (0.00-0.02); Immature Granulocytes % (auto) 0.2 %; Lymphocytes # (auto) 1.16 K/uL (1.2-3.4); Lymphocytes % (auto) 20.8 %; Mean Corpuscular Hemoglobin 30.5 pg (25-34); Mean Corpuscular Hgb Conc 34.6 g/dL (32-36); Mean Corpuscular Volume 88.3 fL (80-100); Mean Platelet Volume 10.6 fL (7.4-10.4); Monocytes # (auto) 0.36 K/uL (0.11-0.59); Monocytes % (auto) 6.5 %; Neutrophils # (auto) 3.87 K/uL (1.4-6.5); Neutrophils % (auto) 69.3 %; Platelet Count 174 K/uL (130-400); RDW Coefficient of Variation 14.1 % (11.5-14.5); RDW Standard Deviation 46.1 fL (36.4-46.3); Red Blood Count 4.03 M/uL (4.2-5.4); White Blood Count 5.58 K/uL (4.8-10.8)
[2021-03-01 09:20] LABS: BUN Creatinine Ratio 19.9 (10-20); Calcium 8.8 mg/dl (8.5-10.1); Creatinine Clr Calc Pharmacy 46.7 ml/min; Est GFR (African American) 60.9 ml/min; Est GFR (Non-African American) 52.5 ml/min; Potassium 3.2 mmol/L (3.5-5.1)
[2021-03-01] MEDS: ATORVASTATIN 20 MG TAB PO SCH (09:38)
[2021-03-01] MEDS: lisinopril 20 MG TAB PO SCH (09:38)
[2021-03-01] MEDS: amLODIPine BESYLATE 5 MG TAB PO SCH (09:38)
[2021-03-01] MEDS: APIXABAN 5 MG TABLET PO SCH (09:38)
[2021-03-01] MEDS: LORATADINE 10 MG TAB PO SCH (09:38)
[2021-03-01] MEDS: METOPROLOL SUCC 50MG EXT REL TAB PO SCH (09:39)
--- NOTE | 2021-03-01 10:54 | Hospitalist Progress Note ---
Date of Service March 01, 2021 Assessment & Plan (1) Pulmonary emboli: Plan: Age Indeterminate Right Lung PE NSCLC status post surgery ongoing chemotherapy -- CT chest: 1. There are 2 small segmental/subsegmental pulmonary emboli seen within the right lung as described above. These are technically age indeterminate. 2. No focal lung consolidations to suggest pneumonia. 3. Stable postoperative changes within the right lung. -- Doppler US: no DVT -- discussed with Dr. Linton transition from Heparin to Eliquis -- tolerating well -- d/c on Eliquis ff up with PCP and Dr. Nadir Linton in 1 week HTN -- continue usual medications Hypokalemia, ARF ON CKD -- resolved -- hold Spironolactone for now until re-evaluated by PCP repeat BMP on ff up with PCP next week Paroxysmal AFib, patient NSR hx breast cancer, L sp surgery and chemotherapy, history of BRCA gene mutation uterine cancer sp surgery/chemotx DM2 diet controlled, well-controlled as of recent outpatient hemoglobin A1c of 5.7 last October 2020 DVT prophylaxis.Eliquis Full code plan of care discussed with patient in detail and at length all questions answered she is understanding, agreeable, comfortable with the plan of care Admission and Anticipated Discharge Date Admission Date: February 27, 2021 Subjective ff up for acute PE, etc seen resting in bedside chair, comfortable states she feels fine overall no chest pain, dyspnea, palpitations, dizziness no bleeding no other symptoms Review of Systems Review of Systems: all noted and negative except for above Physical Exam Physical Exam: General- oriented x 3, not in distress, speaks in sentences with no effort or accessory muscle use Eyes- anicteric Neck- no JVD Lungs- clear BS bilaterally, no rales/wheezes Heart- normal rate, regular rhythm; no murmurs Abdomen- normal bowel sounds, nondistended, soft, nontender Extremities- no pretibial edema, no calf tenderness Neuro- alert, oriented x 3; no gross focal neurologic deficits Skin- warm & dry Results & Data Results & Data ([facility]) Vital Signs (Past 12 Hours) Vital Signs Temp Pulse Pulse Pulse Pulse Pulse Resp 03/01/21 10:20 86 85 68 03/01/21 07:20 36.7 C 68 15 03/01/21 04:05 36.7 C 64 18 03/01/21 00:08 64 Resp Resp Resp BP Pulse Ox Pulse Ox Pulse Ox 03/01/21 10:20 18 16 14 96 96 03/01/21 07:20 171/80 H 94 03/01/21 04:05 145/74 H 96 03/01/21 00:08 Pulse Ox 03/01/21 10:20 98 03/01/21 07:20 03/01/21 04:05 03/01/21 00:08 all noted and reviewed including below (1) Pulmonary emboli Acute cor pulmonale presence: unspecified Chronicity: acute Pulmonary embolism type: unspecified Qualified Code(s): I26.99 - Other pulmonary embolism without acute cor pulmonale
--- NOTE | 2021-03-01 11:03 | Discharge Summary ---
Date of Service March 01, 2021 Admission HPI Per Admitting Provider Chief Complaint: Left upper leg pain Primary Care Provider: Hank Ivey DO History obtained from patient, family, and records. Medical history significant for hypertension, paroxysmal AFib, hx BRCA gene mut ation, recurrent NSCLC status post surgery ongoing chemotherapy, breast cancer, L sp surgery and chemotherapy, uterine cancer sp surgery/chemotx, DM2 diet- controlled, CRI (baseline creatinine 1.3), mood disorder Last confinement December 2019 for stress fracture of the left femur status post surgery. 1 week history of fatigue, nausea symptoms with usual exertional shortness of breath. No chest pain. Transient diarrheal illness without abdominal pain. No cough symptoms. No known recent COVID-19 contacts. Patient sent for outpatient CT of the chest after abnormal D-dimer noted with outpatient blood work. Patient directed to ER with CT chest showing pulmonary embolism. IV heparin started at the ER. Admission Exam (Per Admitting) Constitutional GENERAL: Comfortable, pleasant, mild hearing impairment, no respiratory distress SKIN: Normal color, warm HEENT: [place] palpebral conjunctivae, no ptosis, dry buccal mucosa NECK : Supple, no tenderness CHEST : CTA, no tenderness HEART : Bradycardic, no obvious murmurs ABDOMEN: Some distention, nontender EXTREMITIES : No LE swelling/tenderness, no other conspicuous deformities noted NEUROLOGIC : Coherent, no facial asymmetry, mild hearing impairment, no other gross focality Discharge Data Consultations 02/27/21 19:33 ED Decision to Admit Stat Procedures Performed CHEST CTA for PULMONARY ARTERIES CT DOSE: 436.84 mGycm HISTORY: Shortness of breath TECHNIQUE: Multiaxial CT images of the chest were performed following the intravenous administration of contrast to evaluate the pulmonary arteries. Maximal intensity projection images were also obtained. A dose lowering technique was utilized adhering to the principles of ALARA. COMPARISON STUDY: Chest CT 06/28/2019. FINDINGS: Limited views the upper abdomen demonstrate multiple calcified granulomas within the spleen and normal adrenal glands. Partially visualized right renal hypodense lesion which favors a cyst. There is also a 1.2 cm hypodense lesion within the left hepatic lobe which also favors a cyst. Normal esophagus. Prior left mastectomy. The heart remains borderline enlarged. No pleural or pericardial effusions. No mediastinal or hilar lymphadenopathy. Right subclavian Port-A-Cath terminates at the distal SVC. There are healing right lateral sixth and seventh nondisplaced rib fractures. There is a right total shoulder arthroplasty. No suspicious osseous lesions identified. Normal caliber thoracic aorta with no evidence for dissection. Small linear filling defect seen within a segmental/subsegmental branch of the right upper lobe best seen on image 119 and a small filling defect seen within the subsegmental branch of the right lower lobe on image 73. These are consistent with age indeterminate pulmonary emboli. The remaining pulmonary arteries are patent. No pneumothorax. Suture material and a calcified granuloma again noted within the right lung. The central airways are patent. No focal lung consolidations to suggest pneumonia. A few bibasilar linear densities consistent with subsegmental atelectasis. IMPRESSION: 1. There are 2 small segmental/subsegmental pulmonary emboli seen within the right lung as described above. These are technically age indeterminate. 2. No focal lung consolidations to suggest pneumonia. 3. Stable postoperative changes within the right lung. ACT 112: Negative or not required by law. BILATERAL LOWER EXTREMITY VENOUS DOPPLER HISTORY: Acute shortness of breath with pulmonary emboli. pe workup COMPARISON STUDY: 12/19/2019 Doppler FINDINGS: There is normal compressibility, flow, and augmentation within the bilateral lower extremity deep venous systems. IMPRESSION: No DVT within the right or left lower extremity. ACT 112: Negative or not required by law. Hospital Course (1) Pulmonary emboli: Age Indeterminate Right Lung Pulmonary Emboli NSCLC status post surgery ongoing chemotherapy -- CT chest: 1. There are 2 small segmental/subsegmental pulmonary emboli seen within the right lung as described above. These are technically age indeterminate. 2. No focal lung consolidations to suggest pneumonia. 3. Stable postoperative changes within the right lung. -- Doppler US: no DVT -- discussed with Dr. Linton transition from Heparin to Eliquis -- tolerating well no chest pain, shortness of breath -- d/c on Eliquis ff up with PCP and Dr. Nadir Linton in 1 week HTN -- continue usual medications Hypokalemia, Acute Renal Failure On CKD -- resolved -- hold Spironolactone for now until re-evaluated by PCP repeat BMP on ff up with PCP next week Paroxysmal AFib, patient NSR hx breast cancer, L sp surgery and chemotherapy, history of BRCA gene mutation uterine cancer sp surgery/chemotx DM2 diet controlled, well-controlled as of recent outpatient hemoglobin A1c of 5.7 last October 2020 DVT prophylaxis.Gordon Full code plan of care discussed with patient in detail and at length all questions answered she is understanding, agreeable, comfortable with the plan of care
[2021-03-01 11:47] VITALS: BP 147/75; PULSE 71; TEMP 99; O2SAT 95
[2021-03-07] MEDS ORDERED: APIXABAN 5 MG TABLET PO SCH (09:00)
== END 2021-03-01 13:57 | disposition home or self-care (01) ==
LOC: ED 16:45 → 2W 20:48 → INTOOBSV 20:48 → 2W 22:09

== ENCOUNTER 2023-09-27 12:45 | Inpatient (IN) ==
--- OUTSIDE RECORDS SUMMARY | 2023-09-27 13:09 | External Medical Summary | Summary of Care ---
Author Name Unknown Organization [facility] Address [address] [place] [address] Phone [phone] Care Team Providers Care Nutritional Services Cook Name Role Phone Hank Ivey Primary Care Provider Reason for Visit * Reason Comments Medication Management Encounter Details Date Type Department Care Team ([facility] Contact Info) Description 09/24/2023 1:30 PM EDT Pharmacy Pharmacy Hematology Oncology [facility] [address] [place] [address] [facility] [place] Hem/Onc [address] [place] [address] Multiple lung nodules* Allergies Active Allergy Reactions Criticality Noted Date Comments Troy Oil 02/27/2021 Other reaction(s): ANAPHYLACTIC Ciprofloxacin Rash 10/30/2008 Rash Codeine Nausea/vomiting 02/13/2014 Other reaction(s): GI SYMPTOMS Cyproheptadine 07/06/2018 Other reaction(s): lethargy Cyproheptadine Hcl Other (Please comment) 10/30/2008 Groggy Doxepin 07/06/2018 Other reaction(s): lethargy Doxepin Hcl Other (Please comment) 10/30/2008 Groggy Gabapentin Other (Please comment) 04/08/2016 Says it made her feel "out of it" Other reaction(s): GI SYMPTOMS Hydrocodone 07/06/2018 Other reaction(s): GI SYMPTOMS Hydrocodone-Acetaminoph en Nausea/vomiting 03/27/2015 Meloxicam Other (Please comment) 08/13/2012 Dizzy & H/A Other reaction(s): dizzy,headache,nause a Oxycodone 07/06/2018 Other reaction(s): GI SYMPTOMS Oxycodone-Acetaminophen Nausea/vomiting 009 Paclitaxel Anaphylaxis High 06/14/2015 Other reaction(s): ANAPHYLACTIC Tramadol Nausea/vomiting Low 02/05/2015 nausea Other reaction(s): GI SYMPTOMS documented as of this encounter (statuses as of 09/24/2023) Medications Medication Sig Dispensed Refills Start Date End Date Status amoxicillin (AMOXIL) 500 MG Capsule TAKE 4 CAPSULES BY MOUTH 1 HOUR PRIOR TO APPOINTMENT 4 Cap 3 05/10/2019 Active Meclizine HCl 25 MG Oral Tablet (Antivert) Take 1 Tab by mouth 3 times a day as needed for Dizziness. 30 Tab 1 11/13/2020 Active Famotidine 20 MG Oral Tablet (Pepcid)Indications: Nausea without vomiting,Burping Take 1 Tablet by mouth 2 times a day as needed for Heartburn. 60 Tablet 5 04/10/2021 Active Colchicine 0.6 MG Oral Tablet TAKE 1 TABLET BY MOUTH 2 TIMES A DAY NEEDED FOR FLARE 60 Tablet 1 07/19/2021 Active Fluticasone Propionate 50 MCG/ACT Nasal Suspension (Flonase)Indications :ETD (Eustachian tube dysfunction), right Administer 2 Sprays into each nostril in the morning. 48 mL 1 04/16/2022 Active Vitamin D3 50 MCG (2000 UT) Oral Capsule Take 1 Capsule by mouth in the morning. 90 Capsule 3 08/25/2022 Active Potassium Citrate ER 10 MEQ (1080 MG) Oral Tablet Extended Release (potassium citrate-10)Indicatio ns:Nephrolithiasis,S tage 3 chronic kidney disease, unspecified whether stage 3a or 3b CKD (HCC) Take 1 Tablet by mouth in the morning and 1 Tablet before bedtime. 180 Tablet 2 08/28/2022 Active Metoprolol Succinate ER 50 MG Oral Tablet Extended Release 24 Hour (toPROL XL)Indications:HTN, goal below 150/90 Take 1 Tablet by mouth in the morning. 90 Tablet 3 10/20/2022 Active Eliquis 5 MG Oral TabletIndications:Pu lmonary embolism and infarction (HCC) Take 1 Tablet by mouth in the morning and 1 Tablet before bedtime. 180 Tablet 1 10/20/2022 Active tiZANidine HCl 4 MG Oral CapsuleIndications:S pasm of muscle Take 1 Capsule by mouth 3 times a day as needed for Muscle spasms. 270 Capsule 3 12/05/2022 Active amLODIPine Besylate 10 MG Oral Tablet (Norvasc)Indications :Essential hypertension with goal blood pressure less than 140/90 Take 1 Tablet by mouth in the morning. 90 Tablet 2 12/18/2022 Active hydroCHLOROthiazide 12.5 MG Oral Tablet (Hydrodiuril)Indicat ions:Essential hypertension with goal blood pressure less than 140/90 Take 1 Tablet by mouth in the morning. 90 Tablet 3 03/09/2023 Active Fexofenadine HCl 180 MG Oral Tablet (Ashley) Take 1 Tablet by mouth daily as needed for Allergies. 90 Tablet 3 03/13/2023 Active Albuterol Sulfate HFA 108 (90 Base) MCG/ACT Inhalation Aerosol SolutionIndications: SOB (shortness of breath) on exertion Inhale 2 Puffs by mouth in the morning and 2 Puffs at noon and 2 Puffs in the evening and 2 Puffs before bedtime. 54 g 1 03/13/2023 Active Lisinopril 40 MG Oral TabletIndications:HT N, goal below 150/90 Take 1 Tablet by mouth in the morning. 90 Tablet 3 06/19/2023 Active Magnesium Oxide 400 MG Oral Capsule Take 1 capsule daily. 30 Capsule 5 06/23/2023 Active Atorvastatin Calcium 20 MG Oral Tablet (Lipitor) Take 1 Tablet by mouth in the morning. 90 Tablet 1 07/20/2023 Active Ondansetron 4 MG Oral Tablet Disintegrating (Zofran)Indications: Nausea without vomiting Place 1 Tablet on tongue every 8 hours as needed for Nausea. dissolve on tongue. 30 Tablet 08/20/2023 Active Prochlorperazine Maleate 10 MG Oral Tablet (Compazine)Indicatio ns:EGFR-related lung cancer (HCC) Take 1 Tablet by mouth every 6 hours as needed for Nausea. 30 Tablet 2 09/01/2023 Active Ondansetron 8 MG Oral Tablet Disintegrating (Zofran)Indications: Personal history of malignant neoplasm of breast,EGFR-related lung cancer (HCC),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),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) Place 1 Tablet on tongue every 8 hours as needed for Nausea. dissolve on tongue. 30 Tablet 09/17/2023 Active Hydrocortisone 1 % External CreamIndications:EGF R-related lung cancer (HCC),History of malignant neoplasm of upper lobe bronchus or lung Apply topically to affected area 2 times a day. Apply twice daily for 6 weeks 120 g 1 09/24/2023 Active Osimertinib Mesylate 80 MG Oral Tablet (Tagrisso)Indication s:EGFR-related lung cancer (HCC),History of malignant neoplasm of upper lobe bronchus or lung Take 1 Tablet by mouth in the morning. Take medication about same time every day, with or without food.. 30 Tablet 5 09/24/2023 Active Hospital, Clinic, or Other Facility Administered Medication Ordered Dose Route Frequency Start Date End Date Status albuterol (PROVENTIL HFA) inhaler 4 PuffIndications:SOB (shortness of breath) 4 Puff IN Q4H PRN 01/23/2017 Act jacinta documented as of this encounter (statuses as of 09/24/2023) Active Problems Problem Noted Date Diagnosed Date Metastasis to bone 09/17/2023 Metastasis to liver 09/17/2023 Hypercalcemia 09/17/2023 Right acoustic neuroma 09/09/2023 Stage 3 chronic kidney disease 09/03/2023 Closed fracture of neck of right femur with rout ine healing 06/20/2023 Pulmonary embolism and infarction 03/13/2023 Idiopathic chronic gout of multiple sites withou t tophus 04/17/2021 Senile osteoporosis 02/18/2021 Chronic kidney disease, stage 3b 09/11/2020 Overview: Per CKD protocol EGFR-related lung cancer 05/15/2020 Multiple lung nodules 07/20/2019 Endometrial cancer 05/10/2019 Cancer Staging:Clinical stage from 04/06/2015:FIGO Stage IA(cT1a, cN0, cM0) - Signed by Martinez Lin MD on 09/11/2021 Gastroesophageal reflux disease without esophagi tis 04/25/2019 UGO (generalized anxiety disorder) 04/25/2019 HTN, goal below 150/90 02/01/2017 Monoallelic mutation of BRCA1 gene 11/12/2016 Overview: BRCA1, c.427G>A. Disclosed 11/24/16. Reviewed significance for cancer history and future screening options. Recommended genetic testing for her 2 sons. Elyssa Maldonado, MS 11/12/2016, 2:08 PM History of malignant neoplas m of upper lobe bronchus or lung 03/18/2016 Cancer Staging:Clinical: Unsigned Pathologic stage from 03/18/2016:Stage IA(T1a, N0, cM0) - Signed by Benja Merrill MD on 03/18/2016 Overview: A: Lung, right upper lobe, wedge resection: Adenocarcinoma of lung, acinar type. Surgical margin is negative. Visceral pleural invasion is not identified. Acquired bilateral renal cysts 02/08/2014 HX OF BREAST MALIGNANCY 06/25/2002 NAYA (obstructive sleep apnea) documented as of this encounter (statuses as of 09/24/2023) Resolved Problems Problem Noted Date Diagnosed Date Resolved Date Pulmonary embolism and infarction 05/21/2021 08/25/2022 Primary osteoarthritis of left knee 04/17/2021 06/20/2023 Chondrocalcinosis 04/17/2021 06/20/2023 Atypical fracture of femur 07/16/2020 0 06/20/2023 Skin ulcer of sacrum, limite d to breakdown of skin 05/15/2020 08/25/2022 Type 2 diabetes mellitus wit h stage 3b chronic kidney disease, without long-term current use of insulin 05/15/2020 01/02/2022 Hypertensive kidney disease with stage 3b chronic kidney disease 05/14/2020 06/20/2023 Overview: Per CKD protocol - Per CKD protocol Hypertensive kidney disease with stage 3a chronic kidney disease 03/12/2020 05/17/2020 Overview: Per CKD protocol Type 2 diabetes mellitus wit h stage 3a chronic kidney disease, without long-term current use of insulin 03/12/2020 01/02/2022 Overview: Per CKD protocol Type 2 diabetes mellitus wit h stage 3b chronic kidney disease, without long-term current use of insulin 01/03/2020 03/15/2020 Overview: Per CKD protocol Diabetes mellitus without complication 11/09/2019 01/02/2022 Hyperlipidemia, unspecified 05/10/2019 06/20/2023 Hypertensive kidney disease with CKD stage III 04/28/2018 03/15/2020 Overview: Per CKD protocol No advance directive on file 02/23/2018 06/20/2023 Overview: Yes, Patient instructed to provide copy of advance directive for provider to review and to be scanned into Electronic Medical Record Prediabetes 06/16/2017 01/16/2022 Overview: Per Prediabetes protocol #1 Kidney disease, chronic, sta ge III (GFR 30-59 ml/min) 05/12/2016 05/21/2018 Overview: Per CKD protocol #1 Essential hypertension with goal blood pressure less than 140/90 11/13/2015 06/20/2023 Chemotherapy-induced neutropenia 07/05/2015 12/26/2016 Encounter for antineoplastic chemotherapy 05/17/2015 04/28/2018 Solitary pulmonary nodule on lung CT 05/15/2015 03/18/2016 Overview: 11 by 17 mm RUL, stable size Thickened endometrium 02/05/20152015 Nocturia 10/09/2014 06/20/2023 CPAP (continuous positive ai rway pressure) dependence 08/02/2014 11/03/2018 Rotator cuff tear, left 08/02/201404/04 Rotator cuff tear, right 08/02/2014 Calculus of ureter 02/11/2014 4 Female pattern hair loss 08/01/2013 History of colon polyps 02/12/201206/04 Overview: 03/24/13: 6 mm adenoma transverse colon, repeat in 3 years 08/20/12: 1 cm tubular adenoma, repeat 6 months 02/11/12: two adenomas 10 mm ileocecal area and 10 mm of the ascending colon, repeat 6 months Severe obesity with body mas s index (BMI) of 35.0 to 39.9 with serious comorbidity 10/15/2009 Overview: Per Obesity Protocol, #19 ICD-10 update of inactive diagnosis Allergic rhinitis due to pollen 03/01/2009 06/20/2023 Vitamin D deficiency 10/30/2008 024 Chronic otitis externa 06/19/200804/28 OVARIAN CYST NEC-NOS 05/02/2005 018 Urticaria 08/27/2003 05/06/2017 Overview: sees Dr Valdez for recurrent hives Other chest pain 07/18/2003 09/04/2010 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 Osteoporosis 03/14/2002 02/18/2022 Calculus of kidney 08/01/1998 8 Overview: Last fall 2012 lithotripsy, left side HTN, goal below 140/90 11/12 Cough 06/25/2002 Heartburn 05/06/2017 Irritable bowel syndrome documented as of this encounter (statuses as of 09/24/2023) Immunizations Name Administration Dates Next Due COVID-19 mRNA, LNP-s, No Pre serve, 2-Dose Series (SeatMe) 08/26/2021,03/29/2021,07/28/2020,07/02 COVID-19, MRNA-LNP, 23-24, P F, 30 MCG/0.3 mL, 12 YRS AND ABOVE, IM (CityOdds-Comirnaty) 04/07/2023 Covid-19, Mrna, Lnp-s, Pf, B ivalent, 30 Mcg, IM, 12 yrs and above (Pfizer) 02/14/2022 Pneumococcal Conjugate Vacc, 13 Valent (Prevnar) 08/22/2014,08/02/2014(Deferred: Patient Refused - Patient wants to check with her insurance prior to receiving vaccine) Pneumococcal Polysaccharide PPV23 (Pneumovax) 04/05/2010 RSV Vac., Bivalent, Perfusio n F, Pf,0.5 Ml (Abrysvo) 06/19/2023 Seasonal Influenza Virus Vac cine, Unspecified Formulation 01/18/2021,02/02/2020,01/10/2019,02/08,01/08/2017,02/14/2016,02/01/2014 ,01/31/2013,01/12/2012,02/11/2011,02/03,01/16/2009,02/23/2008, 7,03/05/2006,03/18/2005,02/13/2004 Seasonal Influenza, PF, 6 M & above, IM , (FluLaval or Fluzone) 02/02/2020,02/08/2018 Seasonal Influenza, Quadriva lent Hd (Fluzone Hd) 01/20/2023,01/20/2022,01/18/2021 Seasonal Influenza, Quadriva lent, No Preserve, IM 01/08/2017,02/14/2016,02/05/2015 Seasonal Influenza, Split, I IV3, With Preserve, Inj 02/01/2014,01/31/2013,01/12/2012,02/11,03/02/2010,01/16/2009,02/23/2008 ,02/03/2007,03/05/2006,03/18/2005 Seasonal Influenza, Trivalen t, Adjuvanted, 65+ yrs 01/10/2019 TD, Preservative Free 04/18/2010 TDAP (age 10 and older)(Boostrix) 04/26/2015 Varicella Zoster Vaccine (Adult) 05/24/2008 Zoster Vaccine Recombinant (Shingrix) 08/09/2019 ,05/10/2019 documented as of this encounter Social History Tobacco Use Types Packs/Day Years Used Date Smoking Tobacco: Never Smokeless Tobacco: Never Comments: smoked till 1996 Alcohol Use Standard Drinks/Week Comments Yes 0 (1 standard drink = 0.6 oz pur e alcohol) rare beer, splits with pizza AUDIT-C Answer Date Recorded Frequency of Alcohol Consumption Monthly or less 10/26/2019 Average Number of Drinks 1 or 2 020 Frequency of Binge Drinking Not on file 10/03 PHQ-2 Answer Date Recorded PHQ Adult Total Score 6 10/31/2022 Hunger Vital Sign Answer Date Recorded Within the past 12 months, y ou worried that your food would run out before you got the money to buy more. Never true 11/01/19 23 Within the past 12 months, t he food you bought just didn't last and you didn't have money to get more. Never true 10/31/2022 Sex and Gender Information Value Date Recorded Sex Assigned at Female 10/26/2019 4:13 PM EDT Gender Identity Female 10/26/2019 4:13 PM EDT Sexual Orientation Straight 10/26/2019 4: 13 PM EDT Job Start Date Occupation Industry Not on file Not on file Not on file documented as of this encounter Functional Status Functional Status Response Date of Assess ment Are you deaf or do you have serious difficulty h earing? No 07/19/2019 Are you blind or do you have serious difficulty seeing, even when wearing glasses? No 07/19/2019 Do you have serious difficul ty walking or climbing stairs? (5 years old or older) No 07/19/2019 Do you have difficulty dress ing or bathing? (5 years old or older) No 07/19/2019 Because of a physical, menta l, or emotional condition, do you have difficulty doing errands alone such as visiting a doctor s office or shopping? (15 years old or older) No 07/19/19 Cognitive Status Response Date of Assessm ent Because of a physical, menta l, or emotional condition, do you have serious difficulty concentrating, remembering, or making decisions? (5 years old or older) No 07/19/2019 documented as of this encounter Progress Notes * Inge Angulo RPh - 09/24/2023 3:38 PM EDT Osimertinib RX sent to P Hydrocortisone RX sent to [facility] to follow up in 3 days for re-education Inge Angulo, AydeD, BCOP Clinical Pharmacist, [facility] Oral Chemotherapy [facility] 09/24/2023, 3:39 PM Time Spent on Encounter: 6 - 10 minutes Encounter Group: Oncology Encounter Interventions Item Category: Oral Chemotherapy Osimertinib Problem/Rationale: [place] Plan Review: Clinical Review Pharmacist Intervention(s): Medication prescribed Magnitude of Intervention: Modification of medication for asymtomatic patients (Level 2) * Dee Dee Wood PHARM Tech - 09/24/2023 10:40 AM EDT MEDICATION THERAPY MANAGEMENT OSIMERTINIB TREATMENT STATUS NOTE Dianne Aguayo [phone] Patient Phone Numbers Communication: Chart review Treatment: Medication: osimertinib (Tagrisso) Indication/Staging/Diagnosis Code: met EGFR NSCLC / C34.90 Dose: 80mg daily Administration: +/- food Start Date: TBD Primary Electronics Technician/Oncologist: Dr. Emi Linton Supportive Care Meds: Zometa Ondansetron Prochlorperazine Meclizine Assessment and Plan: Yes/no Date Action Taken [place] plan entered? yes 09/21/23 Consent completed? yes 09/18/23 Intro/med rec completed? N/A Pt previously enrolled in [facility] Precert completed? Yes 09/22/23 Approved Test claim completed? Yes 09/22/23 GS - $48.30 copayment Financial assistance needed? No Physician signature? Yes 09/24/23 Rx released? Education completed? [facility] will contact patient once med shipped/received to complete medication education Please refer to initial intake note for detailed review of regimen and patient- specific education points AYDE Calderon Tech Ecg Technician Hematology Oncology Oral Chemotherapy Clinic Medication Therapy Disease Management [facility] 09/24/23,10:46 AM Time Spent on Encounter: 6 - 10 minutes documented in this encounter Plan of Treatment Upcoming Encounters Date Type Department Care Team (Latest Contact Info) Description 09/29/2023 1:00 PM EDT Office Visit Family Practice State [facility] Mon[facility] [address] [place] [address] Hank Ivey, DO [address] [place] [address] 09/30/2023 9:45 AM EDT Pharmacy Pharmacy Hematology Oncology [address] [place] [address] [facility] [place] Hem/Onc [address] [place] [address] 09/30/2023 12:30 PM EDT Office Visit Gynecology/Oncolog y, [place] [address] [place] [address] Ama Ruano PA-C [address] [place] [address] 10/01/2023 8:30 AM EDT Hospital Encounter MRI, [place] [address] [place] [address] 10/01/2023 10:00 AM EDT Documentation Radiation Oncology, [place] [address] [place] [address] Prakash Vyas MD [address] [place] [address] 10/06/2023 1:00 PM EDT Immunization/Injectio n Hematology/Oncolog y Treatment, [place] [address] [place] [phone] Nurse, Med 4 [address] [place] [address] 10/21/2023 8:30 AM EDT Office Visit [facility] [address] [facility] [address] Sarah Mohan CRNP [address] [facility] [address] 10/27/2023 3:00 PM EDT Office Visit Nephrology, [facility] [address] [place] [address] Shirley Alicea PA-C [address] [place] [address] 11/09/2023 10:00 AM EDT Nurse Only Ancillary [facility] [place] [address] [place] [address] Im, Nurse Annual Wellness [facility] [address] [place] [address] 11/20/2023 9:30 AM EDT Hospital Encounter ENDO [facility], Endoscopy Room [facility] [address] [place] [phone] Rogelio Yeh MD [address] [place] [address] 11/20/2023 9:30 AM EDT - 11/20/2023 10:00 AM EDT Surgery ENDO [facility], Endoscopy Room [facility] [address] [place] [phone] Rogelio Yeh MD [address] [place] [address] COLONOSCOPY FLEXIBLE PROXIMAL DIAGNOSTIC 11/23/2023 9:20 AM EDT Office Visit Family Practice [facility] [address] [place] [address] Esperanza Jeffery, [address] [facility] [place] [address] 12/10/2023 3:15 PM EDT Cardiac Studies Cardiac Studies, [facility] [address] [place] [address] 12/10/2023 4:00 PM EDT [facility] [address] [place] [address] 01/28/2024 11:00 AM EDT Office Visit Otolaryngology/Hea d & Neck/Facial Plastic Surgery [address] [place] [address] Tyrone Tenorio MD [address] [place] [address] 03/03/2024 11:00 AM EDT Office Visit Rheumatology [place], [place] [address] [place], [place] [address] Avinash Rasmussen MD [address] [place] [address] Scheduled Procedures Name Priority Associated Diagnoses Date/Ti me COLONOSCOPY FLEXIBLE PROXIMAL DIAGNOSTIC Recall History of colon polyps Tubular adenoma 11/20/2023 9:30 AM EDT Health Maintenance Due Date Last Done Comments Colonoscopy 04/23/2023 04/23/2020, 04/04, 04/29/2016, Additional history exists Albumin/Creatinine Ratio 05/12/2023 023, 02/05/2021, 01/06/2020, Additional history exists COVID-19 Vaccine ( season) 2023 04/07/2023, 02/14/2022, 08/26/2021, Additional history exists Depression Screening 11/01/2023 10/31/2022 GFR 03/23/2024 09/21/2023, 09/01, 08/20/2023, Additional history exists CKD PHOS USE SMARTSET 16861 09/16/202409/01, 07/28/2022, 06/24/2021, Additional history exists CKD HGB USE SMARTSET 89876 09/20/202409/20, 09/21/2023, 09/17/2023, Additional history exists DTaP,Tdap,and Td Vaccines (2 - Td or Tdap) 04/26/2025 04/26/2015, 04/18/2010, 12/03/1999 DXA Scan 05/11/2025 05/11/2023, 10/2020, 02/14/2019, Additional history exists Pneumococcal Vaccine: 65+ Years Completed 08/22/2014, 04/05/2010, 05/19/2001 Zoster Vaccines Completed 08/09/2019, 11/2019, 05/24/2008 Diabetic Eye Exam Discontinued 08/09/2021, , 02/10/2018, Additional history exists Diabetic Foot Exam Discontinued 10/28/2021, 02/23/2020 Influenza Vaccine (FLU shot) Completed 01/20/2023, 01/20/2022, 01/18/2021, Additional history exists VITAMIN D LEVEL ONCE IN A LIFETIME-USE SMARTSET# [id number] Completed 05/11/2023, 07/28/2022, 06/24/2021, Additional history exists GARDASIL-HPV IMMUNIZATION SERIES Aged Out No longer eligible based on patient's age to complete this topic Hepatitis B Aged Out No longer eligi ble based on patient's age to complete this topic MENINGOCOCCAL (MENACTRA/MENVEO) Aged Out No longer eligible based on patient's age to complete this topic documented as of this encounter Medical Devices Implanted Type Area Certified Driver Examiner Device Identifier Shelf Expiration Date Model / Serial / Lot 7fr X 24cm Bard Inlay [place] Ureteral Stent Implanted:Qty : 1 on 04/04/2014 by Sawyer Parson MD at OR [facility] Left: Ureter INACTIVE [employer] 10/01/2018 [id number] / / [id number] Port Power Mri W/8fr Cath - [id number] Implanted:Qty : 1 on 05/23/2015 by Nay Hernandez MD at OR [facility] Right: Subclavian CR [employer]ARD : PERIPHERAL VASCULAR 08/29/2016 [id number] / / [id number] documented as of this encounter Visit Diagnoses Diagnosis Multiple lung nodules- Primary Other nonspecific abnormal finding of lung field History of colon polyps Personal history of colonic polyps Tubular adenoma Benign neoplasm of unspecified site documented in this encounter Advance Directives * Full Code (Latest Code Status on File) Date Activated Date Inactivated Comments 07/19/2019 8:59 AM 07/20/2019 7:53 PM Question Answer Comments Discussion of Advance Directives occurred with: Not Discussed * Full Code Date Activated Date Inactivated Comments 03/12/2016 10:12 AM 03/14/2016 3:17 PM This order reflects the patients wishes and were consensually agreed upon. * Full Code Date Activated Date Inactivated Comments 04/16/2015 9:26 AM 04/20/2015 3:49 PM This order reflects the patients wishes and were consensually agreed upon. * Full Code Date Activated Date Inactivated Comments 04/04/2014 10:29 AM 04/04/2014 3:26 PM This order reflects the patients wishes and were consensually agreed upon. * Full Code Date Activated Date Inactivated Comments 04/04/2014 8:06 AM 04/04/2014 10:29 AM This order reflects the patients wishes and were consensually agreed upon. Care Teams Nutritional Services Cook Relationship Specialty Start Date End Date Hank Ivey DO [address] [place] [address] PCP - General Family Medicine 10/07/16 documented as of this encounter
--- OUTSIDE RECORDS SUMMARY | 2023-09-27 13:09 | External Medical Summary | Summary of Care ---
Author Name Unknown Organization [facility] Address [address] [place] [address] Phone [phone] Care Team Providers Care Agricultural Produce Washer Name Role Phone Hank Ivey Primary Care Provider [phone] Reason for Visit * Reason Onset Date Comments Precert Future 09/18/2023 tagrisso Encounter Details Date Type Department Care Team ([facility] Contact Info) Description 09/18/2023 Telephone Hematology/Oncology Treatment, [place] [address] [place] [address] Kush Linton MD [address] [place] [address] Precert Future (tagrisso) Allergies Active Allergy Reactions Criticality Noted Date Comments [place] Oil 02/27/2021 Other reaction(s): ANAPHYLACTIC Ciprofloxacin Rash [...] as of this encounter (statuses as of 09/21/2023) Medications Medication Sig Dispensed Refills Start Date End Date Status amoxicillin (AMOXIL) 500 MG Capsule TAKE 4 CAPSULES BY MOUTH 1 HOUR PRIOR TO APPOINTMENT 4 Cap 3 05/10/2019 Active Meclizine HCl 25 MG Oral Tablet (Antivert) Take 1 Tab by mouth 3 times a day as needed for Dizziness. 30 Tab 1 11/13/2020 Active Famotidine 20 MG Oral Tablet (Pepcid)Indications :Nausea without vomiting,Burping Take 1 Tablet by mouth 2 times a day as needed for Heartburn. 60 Tablet 5 04/10/2021 Active Colchicine 0.6 MG Oral Tablet TAKE 1 TABLET BY MOUTH 2 TIMES A DAY NEEDED FOR FLARE 60 Tablet 1 07/19/2021 Active Fluticasone Propionate 50 MCG/ACT Nasal Suspension (Flonase)Indication s:ETD (Eustachian tube dysfunction), right Administer 2 Sprays into each nostril in the morning. 48 mL 1 04/16/2022 Active Vitamin D3 50 MCG (2000 UT) Oral Capsule Take 1 Capsule by mouth in the morning. 90 Capsule 3 08/25/2022 Active Potassium Citrate ER 10 MEQ (1080 MG) Oral Tablet Extended Release (potassium citrate-10)Indicati ons:Nephrolithiasis ,Stage 3 chronic kidney disease, unspecified whether stage 3a or 3b CKD (HCC) Take 1 Tablet by mouth in the morning and 1 Tablet before bedtime. 180 Tablet 2 08/28/2022 Active Metoprolol Succinate ER 50 MG Oral Tablet Extended Release 24 Hour (toPROL XL)Indications:HTN, goal below 150/90 Take 1 Tablet by mouth in the morning. 90 Tablet 3 10/20/2022 Active Eliquis 5 MG Oral TabletIndications:P ulmonary embolism and infarction (HCC) Take 1 Tablet by mouth in the morning and 1 Tablet before bedtime. 180 Tablet 1 10/20/2022 Active tiZANidine HCl 4 MG Oral CapsuleIndications: Spasm of muscle Take 1 Capsule by mouth 3 times a day as needed for Muscle spasms. 270 Capsule 3 12/05/2022 Active amLODIPine Besylate 10 MG Oral Tablet (Norvasc)Indication s:Essential hypertension with goal blood pressure less than 140/90 Take 1 Tablet by mouth in the morning. 90 Tablet 2 12/18/2022 Active hydroCHLOROthiazide 12.5 MG Oral Tablet (Hydrodiuril)Indica tions:Essential hypertension with goal blood pressure less than 140/90 Take 1 Tablet by mouth in the morning. 90 Tablet 3 03/09/2023 Active Fexofenadine HCl 180 MG Oral Tablet (Ashley) Take 1 Tablet by mouth daily as needed for Allergies. 90 Tablet 3 03/13/2023 Active Albuterol Sulfate HFA 108 (90 Base) MCG/ACT Inhalation Aerosol SolutionIndications :SOB (shortness of breath) on exertion Inhale 2 Puffs by mouth in the morning and 2 Puffs at noon and 2 Puffs in the evening and 2 Puffs before bedtime. 54 g 1 03/13/2023 Active Lisinopril 40 MG Oral TabletIndications:H TN, goal below 150/90 Take 1 Tablet by mouth in the morning. 90 Tablet 3 06/19/2023 Active Gabapentin 100 MG Oral Capsule (Neurontin) Take 1 capsule nightly 30 Capsule 06/23/2023 Active Magnesium Oxide 400 MG Oral Capsule Take 1 capsule daily. 30 Capsule 5 06/23/2023 Active Riboflavin 400 MG Oral Tablet Take 1 Tablet by mouth in the morning. 30 Tablet 5 06/23/2023 Active Atorvastatin Calcium 20 MG Oral Tablet (Lipitor) Take 1 Tablet by mouth in the morning. 90 Tablet 1 07/20/2023 Active Ondansetron 4 MG Oral Tablet Disintegrating (Zofran)Indications :Nausea without vomiting Place 1 Tablet on tongue every 8 hours as needed for Nausea. dissolve on tongue. 30 Tablet 08/20/2023 Active Prochlorperazine Maleate 10 MG Oral Tablet (Compazine)Indicati ons:EGFR-related lung cancer (HCC) Take 1 Tablet by mouth every 6 hours as needed for Nausea. 30 Tablet 2 09/01/2023 Active Ondansetron 8 MG Oral Tablet Disintegrating (Zofran)Indications :Personal history of malignant neoplasm of breast,EGFR-related lung cancer (HCC),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),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) Place 1 Tablet on tongue every 8 hours as needed for Nausea. dissolve on tongue. 30 Tablet 09/17/2023 Active Ondansetron HCl 8 MG Oral TabletIndications:E GFR-related lung cancer (HCC) Take 1 Tab by mouth every 8 hours as needed for Nausea. 30 Tab 2 11/13/2020 09/21/19 24 Discontinu ed(Medicat ion List Clean Up) Hospital, Clinic, or Other Facility Administered Medication Ordered Dose Route Frequency Start Date End Date Status albuterol (PROVENTIL HFA) inhaler 4 PuffIndications:SOB (shortness of breath) 4 Puff IN Q4H PRN 01/23/2017 Act jacinta documented as of this encounter (statuses as of 09/21/2023) Active Problems Problem Noted Date Diagnosed Date [...] as of this encounter (statuses as of 09/21/2023) Resolved Problems Problem Noted Date Diagnosed Date [...] as of this encounter (statuses as of 09/21/2023) Immunizations Name Administration Dates Next Due COVID-19 mRNA, LNP-s, No Pre serve, 2-Dose Series ([employer]) 08/26/2021,03/29/2021,07/28/2020,07/02 COVID-19, MRNA-LNP, 23-24, P F, 30 MCG/0.3 mL, 12 YRS AND ABOVE, IM ([employer]-Comirnat) 04/07/2023 Covid-19, Mrna, Lnp-s, Pf, B ivalent, [...] (15 years old or older) No 07/19/19 20 Cognitive Status Response Date of Assessm ent Because of a physical, menta l, or emotional condition, do you have serious difficulty concentrating, remembering, or making decisions? (5 years old or older) No 07/19/2019 documented as of this encounter Miscellaneous Notes * Telephone Encounter - Krystal Ventura, RN - 09/18/2023 4:04 PM EDT Order received for tagrisso. Order forwarded to [facility]. Waiting for auth. Patient had signed consent from 07/28/19, but Dr Linton re-signed new consent 09/18/23. Patient had EKG 04/14/23. Will need Hep B labs with next lab draw (having lab work repeated early next week to recheck calcium/ creatinine). Patient was previously on this treatment- declined education. MT: FYI documented in this encounter Plan of Treatment Upcoming Encounters Date Type Department Care Team (Latest Contact Info) Description 09/21/2023 1:00 PM EDT Pharmacy Pharmacy Hematology Oncology [facility] [place] [address] [place] [address] [facility], [facility] Hem/Onc [address] [place] [address] Multiple lung nodules* 09/22/2023 9:00 AM EDT Hospital Encounter OR GL, Operating Room, [facility] - 4th Floor [address] [facility] [place] [address] [facility], In And Out Surgery [address] [facility] [place] [address] 09/22/2023 9:00 AM EDT Appointment Radiology, [facility] [address] [facility] [place] [address] 09/22/2023 9:00 AM EDT - 09/22/2023 10:00 AM EDT Surgery OR [facility], Operating Room, [facility] - 4th Floor [address] [facility] [place] [address] [facility], In And Out Surgery [address] [facility] [address] PRE / POST CARE 09/24/2023 1:30 PM EDT Pharmacy Pharmacy Hematology Oncology [place] [address] [place] [address] [facility], [facility] Hem/Onc [address] [place] [address] 09/29/2023 1:00 PM EDT Office Visit [facility] [place] [address] [facility] [address] Hank Ivey, DO [address] [place] [address] 09/30/2023 12:30 PM EDT Office Visit Gynecology/Oncolog , [place] [address] [place] [address] Ama Ruano PA-C [address] [place] [address] 10/01/2023 8:30 AM EDT Hospital Encounter MRI, [place] [address] [facility] [place] [address] 10/01/2023 10:00 AM EDT Documentation Radiation Oncology, [place] [address] [place] [address] Prakash Vyas MD [address] [facility] [place] [address] 10/06/2023 1:00 PM EDT Immunization/Injectio n Hematology/Oncolog y Treatment, [place] [address] [place] [phone] Nurse, Med [address] [facility] [address] 10/21/2023 8:30 AM EDT Office Visit Cardiology, [facility] [address] [place] [address] Sarah Mohan CRNP [address] [place] [address] 10/27/2023 3:00 PM EDT Office Visit Nephrology, [facility] [address] [facility] [address] Shirley Alicea PA-C [address] [facility] [place] [address] 11/09/2023 10:00 AM EDT Nurse Only Ancillary [facility] [place] [address] [place] [address] Im, Nurse Annual Wellness [facility] [address] [facility] [address] 11/20/2023 9:30 AM EDT Hospital Encounter ENDO [facility], Endoscopy Room [facility] [address] [place] [phone] Rogelio Yeh MD [address] [place] [address] 11/20/2023 9:30 AM EDT - 11/20/2023 10:00 AM EDT Surgery ENDO [facility], Endoscopy Room [facility] [address] [place] [phone] Rogelio Yeh MD [address] [place] [address] COLONOSCOPY FLEXIBLE PROXIMAL DIAGNOSTIC 11/23/2023 9:20 AM EDT Office Visit Family Practice [facility] [address] [place] [address] Esperanza Jeffery DO [address] [facility] [place] [address] 01/28/2024 11:00 AM EDT Office Visit Otolaryngology/Hea d & Neck/Facial Plastic Surgery [address] [place] [address] Tyrone Tenorio MD [address] [place] [address] 03/03/2024 11:00 AM EDT Office Visit Rheumatology [facility] [address] [facility] [place], [place] [address] Avinash Rasmussen MD [address] [facility] [place], [place] [address] Pending Results Name Type Priority Associated Diagnoses Date /Time HEPATITIS B SURFACE ANTIBODY Lab STAT EGFR-related lung cancer (HCC) 09/21/2023 9:26 AM EDT HEPATITIS B SURFACE ANTIGEN Lab STAT EGFR-related lung cancer (HCC) 09/21/2023 9:26 AM EDT HEPATITIS B CORE ANTIBODIES IGG AND IGM Lab STAT EGFR-related lung cancer (HCC) 09/21/2023 9:26 AM EDT Scheduled Orders Name Type Priority Associated Diagnoses Orde r Schedule HEPATITIS B SURFACE ANTIBODY Lab STAT EGFR-related lung cancer (HCC) Expected: 09/18/2023 (Approximate), Expires: 09/17/2024 HEPATITIS B SURFACE ANTIGEN Lab STAT EGFR-related lung cancer (HCC) Expected: 09/18/2023 (Approximate), Expires: 09/17/2024 HEPATITIS B CORE ANTIBODIES IGG AND IGM Lab STAT EGFR-related lung cancer (HCC) Expected: 09/18/2023 (Approximate), Expires: 09/17/2024 Scheduled Procedures Name Priority Associated Diagnoses Date/Ti me PRE / POST CARE Personal history of malignant neoplasm of breast 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) 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) 09/22/2023 9:00 AM EDT COLONOSCOPY FLEXIBLE PROXIMAL DIAGNOSTIC Recall History of [...] Additional history exists CKD PHOS USE SMARTSET 63033 09/16/202409/01, 07/28/2022, 06/24/2021, Additional history exists CKD HGB USE SMARTSET 85252 09/20/202409/20, 09/21/2023, 09/17/2023, Additional history exists DTaP,Tdap,and [...] D LEVEL ONCE IN A LIFETIME-USE SMARTSET# 65549 Completed 05/11/2023, 07/28/2022, 06/24/2021, Additional history exists [...] this encounter Medical Devices Implanted Type Area Hair Spring Cutter Device Identifier Shelf Expiration Date Model / Serial / Lot 7fr X 24cm Bard Inlay [place] Ureteral Stent Implanted:Qty : 1 on 04/04/2014 by Sawyer Parson MD at OR [facility] Left: Ureter INACTIVE [employer] 10/01/2018 [id number] / / [id number] Port Power Mri W/8fr Cath - [id number] Implanted:Qty : 1 on 05/23/2015 by Nay Hernandez MD at OR [facility] Right: Subclavian CR BARD : PERIPHERAL VASCULAR 08/29/2016 [id number] / / [id number] documented as of this encounter Visit Diagnoses Diagnosis EGFR-related lung cancer (HCC)- Primary Multiple lung nodules- Primary Other nonspecific abnormal finding of lung field Personal history of malignant neoplasm of breast 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) Secondary malignant neoplasm of liver 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 Care Teams Agricultural Produce Washer Relationship Specialty Start Date End Date Hank Ivey DO [address] [place] [address] PCP - General Family Medicine 10/07/16 documented as of this encounter
--- OUTSIDE RECORDS SUMMARY | 2023-09-27 13:09 | External Medical Summary | Summary of Care ---
Author Name Unknown Organization [facility] Address [address] [place] [address] Phone [phone] Care Team Providers Care Stonemason Helper Name Role Phone Hank Ivey Primary Care Provider [phone] Reason for Referral * Evaluate & Treat - Unlimited Visits (Within 10 days (routine)) - Pending Review Specialty Diagnoses / Procedures Referred By Fred guidry Referred To Contact Pharmacist / Pharmacy Diagnoses EGFR-related lung cancer (HCC) History of malignant neoplasm of upper lobe bronchus or lung Inge Angulo, [facility] [address] [place] [address] Referral ID Status Reason Start Date Expiration Date Visits Requested Visits Authorized [id number] Pending Review Specialty Services Required 09/24/2023 99 [phone] Question Answer Referral Priority Within 10 days (routine) Where should this appointment be scheduled? [facility] Referring Provider Role: Specialist Specialty: Heme/Onc Reason for Referral: Oral Chemo Has consent been obtained for new oral chemo agent(s)? Yes Comments ORAL CHEMOTHERAPY MTDM MONITORING REFERRAL This patient is being referred to the Oral Chemotherapy Clinic for medication co-management. The planned duration of treatment is: Until disease progression/toxicity Please start oral chemotherapy: Once therapy has arrived from specialty pharmacy Oral Chemotherapy Monitoring will continue until one of the following discharge criteria has been met. The provider will be informed if any of these occur. 1. Disease progression. 2. Patient non-compliance 3. Compliance and tolerating treatment well without major toxicities with routine provider follow up. 4. Completion of therapy. Additional Comments: N/A By my signature, I understand that my patient will have their medication therapy managed by the [facility] Medication Therapy Disease Management Clinic ([facility]) per established policies, procedures, and protocols. I also certify that this referral may serve as an initiation of service for the management of drug therapy in the above noted patient. [facility] providers will be responsible for scheduling patient visits, obtaining appropriate laboratory studies, and adjusting medication management therapy per patient's need, in addition to those roles spelled out in the clinic policy, procedures, and drug management protocols. I understand that the service provided by the [facility] Clinic is voluntary and have informed patient that they can refuse the service at their discretion. I am aware that the [facility] Clinic will provide me with a copy of the patient encounter via my [place] [employer]. I authorize the [facility] Clinic to carry out these activities on my behalf. I consider this program to be a necessary part of the patient's medical care. Encounter Details Date Type Department Care Team (Late st Contact Info) Description 09/21/2023 Orders Only Hematology/Oncology [facility] [place] [address] [facility] [place] [address] Kush Linton MD [address] [facility] [place] [address] EGFR-related lung cancer (HCC)*; History of malignant neoplasm of upper lobe bronchus or lung Allergies Active Allergy Reactions Criticality Noted Date Comments [place] Oil 02/27/2021 Other reaction(s): ANAPHYLACTIC Ciprofloxacin Rash [...] mRNA, LNP-s, No Pre serve, 2-Dose Series ([employer]) 08/26/2021,03/29/2021,07/28/2020,07/02 COVID-19, MRNA-LNP, 23-24, P F, 30 MCG/0.3 mL, 12 YRS AND ABOVE, IM ([employer]-Comirnaty) 04/07/2023 Covid-19, Mrna, Lnp-s, Pf, B ivalent, [...] No 07/19/2019 documented as of this encounter Plan of Treatment Upcoming Encounters Date Type Department Care Team (Latest Contact Info) Description 09/29/2023 1:00 PM EDT Office Visit Family Practice [facility] [address] [place] [address] Hank Ivey, DO [address] [place] [address] 09/30/2023 9:45 AM EDT Pharmacy Pharmacy Hematology Oncology [facility] [address] [place] [address] [facility] Hem/Onc [address] [place] [address] 09/30/2023 12:30 PM EDT Office Visit Gynecology/Oncolog y, [place] [address] [place] [address] Ama Ruano PA-C [address] [place] [address] 10/01/2023 8:30 AM EDT Hospital Encounter MRI, [place] [address] [place] [address] 10/01/2023 10:00 AM EDT Documentation Radiation Oncology, [place] [address] [place] [address] Prakash Vyas MD [address] [place] [address] 10/06/2023 1:00 PM EDT Immunization/Injectio n Hematology/Oncolog y Treatment, [place] [address] [facility] [phone] Nurse, Med [address] [facility] [place] [address] 10/21/2023 8:30 AM EDT Office Visit Cardiology, [facility] [address] [facility] [address] Sarah Mohan CRNP [address] [facility] [address] 10/27/2023 3:00 PM EDT Office Visit Nephrology, [facility] [address] [place] [address] ZeShirley suazo PA-C [address] [place] [address] 11/09/2023 10:00 AM EDT Nurse Only Ancillary [facility] [place] [address] [facility] [place] [address] Im, Nurse Annual Wellness [facility] [address] [place] [address] 11/20/2023 9:30 AM EDT Hospital Encounter ENDO [facility], Endoscopy Room [facility] [address] [place] [phone] Rogelio Yeh MD [address] [place] [address] 11/20/2023 9:30 AM EDT - 11/20/2023 10:00 AM EDT Surgery ENDO [facility], Endoscopy Room [facility] [address] [place] [phone] Rogelio Yeh MD [address] [place] [address] COLONOSCOPY FLEXIBLE PROXIMAL DIAGNOSTIC 11/23/2023 9:20 AM EDT Office Visit Family Practice [facility] [address] [place] [address] Esperanza Jeffery, [address] [place] [address] 12/10/2023 3:15 PM EDT Cardiac Studies Cardiac Studies, [facility] [address] [place] [address] 12/10/2023 4:00 PM EDT Cardiac Studies Cardiac Studies, [facility] [address] [facility] [place] [address] 01/28/2024 11:00 AM EDT Office Visit Otolaryngology/Hea d & Neck/Facial Plastic Surgery [address] [facility] [place] [address] Tyrone Tenorio MD [address] [facility] [place] [address] 03/03/2024 11:00 AM EDT Office Visit Rheumatology [place] [address] [facility] [place] [address] Avinash Rasmussen MD [address] [place] [address] Scheduled Orders Name Type Priority Associated Diagnoses Orde r Schedule CBC WITH WBC DIFFERENTIAL Lab STAT EGFR-related lung cancer (HCC) History of malignant neoplasm of upper lobe bronchus or lung Every 3 Months for 4 Occurrences starting 09/24/2023 until 09/23/2024 COMPREHENSIVE METABOLIC PANEL Lab STAT EGFR-related lung cancer (HCC) History of malignant neoplasm of upper lobe bronchus or lung Other, Please specify in Comments field for 6 Occurrences starting 09/24/2023 until 09/23/2024 Scheduled Procedures Name Priority Associated Diagnoses Date/Ti me COLONOSCOPY FLEXIBLE PROXIMAL DIAGNOSTIC Recall History of colon polyps Tubular adenoma 11/20/2023 9:30 AM EDT Scheduled Referrals Name Type Priority Associated Diagnoses Orde r Schedule PHARMACIST MEDS THERAPY MGMT REFERRAL OP Referral Within 10 days (routine) EGFR-related lung cancer (HCC) History of malignant neoplasm of upper lobe bronchus or lung Ordered: 09/24/2023 Health Maintenance Due Date Last Done Comments Colonoscopy 04/23/2023 04/23/2020, 04/04, 04/29/2016, Additional history exists Albumin/Creatinine Ratio 05/12/2023 023, 02/05/2021, 01/06/2020, Additional history exists COVID-19 Vaccine ( season) 2023 04/07/2023, 02/14/2022, 08/26/2021, Additional history exists Depression Screening 11/01/2023 10/31/2022 GFR 03/23/2024 09/21/2023, 09/01, 08/20/2023, Additional history exists CKD PHOS USE SMARTSET 51564 09/16/202409/01, 07/28/2022, 06/24/2021, Additional history exists CKD HGB USE SMARTSET 13415 09/20/202409/20, 09/21/2023, 09/17/2023, Additional history exists DTaP,Tdap,and [...] D LEVEL ONCE IN A LIFETIME-USE SMARTSET# 98998 Completed 05/11/2023, 07/28/2022, 06/24/2021, Additional history exists [...] this encounter Medical Devices Implanted Type Area Educational Guidance Counselor Device Identifier Shelf Expiration Date Model / Serial / Lot 7fr X 24cm Bard Inlay [place] Ureteral Stent Implanted:Qty : 1 on 04/04/2014 by Sawyer Parson MD at OR [facility] Left: Ureter INACTIVE [employer] 10/01/2018 [id number] / / [id number] Port Power Mri W/8fr Cath - [id number] Implanted:Qty : 1 on 05/23/2015 by Nay Hernandez MD at OR [facility] Right: Subclavian CR BARD : PERIPHERAL VASCULAR 08/29/2016 [id number] / / [id number] documented as of this encounter Visit Diagnoses Diagnosis EGFR-related lung cancer (HCC)- Primary History of malignant neoplasm of upper lobe bronchus or lung Personal history of malignant neoplasm of bronchus and lung History of colon polyps Personal history of [...] and were consensually agreed upon. Care Teams Stonemason Helper Relationship Specialty Start Date End Date Hank Ivey DO [address] [facility] [place] [address] PCP - General Family Medicine 10/07/16 documented as of this encounter
--- OUTSIDE RECORDS SUMMARY | 2023-09-27 13:09 | External Medical Summary | Summary of Care ---
Author Name Unknown Organization [facility] Address [address] [place] [address] Phone [phone] Care Team Providers Care Veneer Department Manager Name Role Phone Hank Ivey Primary Care Provider [phone] Reason for Visit * Reason Onset Date Comments Medical Questions 06/25/2023 Encounter Details Date Type Department Care Team ([facility] Contact Info) Description 06/25/2023 Telephone Neurology, [place] [address] [employer] [place] [address] Rosana Nolan PA-C [employer] [place] [phone] Medical Questions Allergies Active Allergy Reactions Criticality Noted Date Comments Cooter Oil 02/27/2021 Other reaction(s): ANAPHYLACTIC Ciprofloxacin Rash [...] capsule daily. 30 Capsule 5 06/23/2023 Active Hospital, Clinic, or Other Facility Administered [...] genetic testing for her 2 sons. Elyssa Shama Maldonado, MS 11/12/2016, 2:08 PM History of [...] mRNA, LNP-s, No Pre serve, 2-Dose Series ([employer]) 08/26/2021,03/29/2021,07/28/2020,07/02 COVID-19, MRNA-LNP, 23-24, P F, 30 MCG/0.3 mL, 12 YRS AND ABOVE, IM (PFIZER-Comirnaty) 04/07/2023 Covid-19, Mrna, Lnp-s, Pf, B ivalent, [...] encounter Miscellaneous Notes * Telephone Encounter - Unique Roberts CPhT - 06/25/2023 10:51 AM EST [facility] asking to clarify Riboflavin rx. It does not come in 400mg. Please sed new rx to [facility]. Thanks, Unique Roberts CPhT, [facility] ([facility]) [address] [place] [address] documented in this encounter Plan of Treatment Upcoming Encounters Date Type Department Care Team (Latest Contact Info) Description 09/29/2023 1:00 PM EDT Office Visit Family Practice [facility] [place] [address] [facility] [place] [address] Hank Ivey, DO [address] [facility] [place] [address] 09/30/2023 9:45 AM EDT Pharmacy Pharmacy Hematology Oncology [facility] [place] [address] [place] [address] [facility], [facility] Hem/Onc [address] [place] [address] 09/30/2023 12:30 PM EDT Office Visit Gynecology/Oncolog y, [place] [address] [place] [address] Ama Ruano PA-C [address] [place] [address] 10/01/2023 8:30 AM EDT Hospital Encounter MRI, [place] [address], [place] [id number] 10/01/2023 10:00 AM EDT Documentation Radiation Oncology, [place] [address] [place] [address] Prakash Vyas MD [address] [place], [place] [id number] 10/06/2023 1:00 PM EDT Immunization/Injectio n Hematology/Oncolog y Treatment, [place] [address] [place], [place] [phone] Nurse, Med 4 [address] [facility] [place] [address] 10/21/2023 8:30 AM EDT Office Visit Cardiology, [facility] [address] [place] [address] MarquesSarah CRNP [address] [place] [address] 10/27/2023 3:00 PM EDT Office Visit Nephrology, [facility] [address] [facility] [place] [address] ZemaitisShirley PA-C [address] [facility] [place] [address] 11/09/2023 10:00 AM EDT Nurse Only Ancillary [facility] [place] [address] [place] [address] Im, Nurse Annual Wellness [facility] [address] [facility] [place] [address] 11/20/2023 9:30 AM EDT Hospital Encounter ENDO OSS, Endoscopy Room [facility] [address] [place] [phone] Rogelio Yeh MD [address] [place] [address] 11/20/2023 9:30 AM EDT - 11/20/2023 10:00 AM EDT Surgery ENDO OSSC, Endoscopy Room [facility] [address] [place] [phone] Rogelio Yeh MD [address] [place] [address] COLONOSCOPY FLEXIBLE PROXIMAL DIAGNOSTIC 11/23/2023 9:20 AM EDT Office Visit Family Practice [facility] [address] [facility] [place], [place] [address] Esperanza Jeffery DO 200 [facility] [address] [place] [address] 12/10/2023 3:15 PM EDT Cardiac Studies [facility], [facility] [address] 12/10/2023 4:00 PM EDT Cardiac Studies Card[facility] Studies, [facility] [address] [facility] [address] 01/28/2024 11:00 AM EDT Office Visit Otolaryngology/Hea d & Neck/Facial Plastic Surgery [address] [place] [address] Tyrone Tenorio MD [address] [place] [address] 03/03/2024 11:00 AM EDT Office Visit Rheumatology [facility] [address] [facility] [place] [address] Avinash Rasmussen MD [address] [facility] [place], [place] [address] Scheduled Procedures Name Priority Associated Diagnoses Date/Ti [...] Additional history exists CKD PHOS USE SMARTSET 30374 09/16/202409/01, 07/28/2022, 06/24/2021, Additional history exists CKD HGB USE SMARTSET 01114 09/20/202409/20, 09/21/2023, 09/17/2023, Additional history exists DTaP,Tdap,and [...] D LEVEL ONCE IN A LIFETIME-USE SMARTSET# 44569 Completed 05/11/2023, 07/28/2022, 06/24/2021, Additional history exists [...] this encounter Medical Devices Implanted Type Area Computer Science Instructor Device Identifier Shelf Expiration Date Model / Serial / Lot 7fr X 24cm Bard Inlay Guinda Ureteral Stent Implanted:Qty : 1 on 04/04/2014 by Sawyer Parson MD at OR [facility] Left: Ureter INACTIVE [employer] 10/01/2018 [id number] / / [id number] Port Power Mri W/8fr Cath - [id number] Implanted:Qty : 1 on 05/23/2015 by Nay Hernandez MD at OR [facility] Right: Subclavian CR BARD : PERIPHERAL VASCULAR 08/29/2016 [id number] / / [id number] documented as of this encounter Advance Directives * Full Code [...] and were consensually agreed upon. Care Teams [place]eneer Department Manager Relationship Specialty Start Date End Date Hank Ivey DO 200 [facility] [place] [address] PCP - General Family Medicine 10/07/16 documented as of this encounter
--- OUTSIDE RECORDS SUMMARY | 2023-09-27 13:09 | External Medical Summary | Summary of Care ---
Author Name Unknown Organization [facility] Address [address] [place] [address] Phone [phone] Care Team Providers Care Workforce Consultant Name Role Phone Hank Ivey Primary Care Provider Reason for Visit * Reason Onset Date Comments Outpatient Testing 09/24/2023 MyGenvar, PDL 1 Encounter Details Date Type Department Care Team ([facility] Contact Info) Description 09/24/2023 Telephone Hematology/Oncology Treatment, [place] [address] [place] [address] Kush Linton MD [address] [place] [address] Outpatient Testing (MyGenvar, PDL1) Allergies Active Allergy Reactions Criticality Noted Date Comments [place] Oil 02/27/2021 Other reaction(s): ANAPHYLACTIC Ciprofloxacin Rash [...] dissolve on tongue. 30 Tablet 09/17/2023 Active Hospital, Clinic, or Other Facility Administered [...] mRNA, LNP-s, No Pre serve, 2-Dose Series ([employer]) 08/26/2021,03/29/2021,07/28/2020,07/02 COVID-19, MRNA-LNP, 23-24, P F, 30 MCG/0.3 mL, 12 YRS AND ABOVE, IM (Volta-Comirnat911 [employer]ets) 04/07/2023 Covid-19, Mrna, Lnp-s, Pf, B ivalent, 30 Mcg, IM, 12 yrs and above ([employer]) 02/14/2022 Pneumococcal Conjugate Vacc, 13 Valent (Prevnar) [...] Miscellaneous Notes * Telephone Encounter - Krystal Ventura RN - 09/24/2023 12:54 PM EDT Order placed, message sent to pathology. * Telephone Encounter - Krystal Ventura RN - 09/24/2023 12:53 PM EDT ----- Message from Kush Linton MD sent at 09/24/2023 6:28 AM EDT ----- - Biopsy from the left lobe of the liver --> Metastatic carcinoma compatible with lung primary. (09/22/2023) We should send for PD-L1 as well as NGS checkup. documented in this encounter Plan of Treatment Upcoming Encounters Date Type Department Care Team (Latest Contact Info) Description 09/24/2023 1:30 PM EDT Pharmacy Pharmacy Hematology Oncology [place] [address] [place] [address] [facility] Hem[facility]Onc [address] [place] [address] 09/29/2023 1:00 PM EDT Office Visit Family Practice [facility] [address] [place] [address] Hank Ivey DO [address] [facility] [place] [address] 09/30/2023 12:30 PM EDT Office Visit Gynecology/Oncolog y, [place] [address] [place] [address] Ama Ruano PA-C [address] [place] [address] 10/01/2023 8:30 AM EDT Hospital Encounter MRI, [place] [address] [place] [address] 10/01/2023 10:00 AM EDT Documentation Radiation Oncology, [place] [address] [place] [address] Prakash Vyas MD [address] [place] [address] 10/06/2023 1:00 PM EDT Immunization/Injectio n Hematology/Oncolog y Treatment, [place] [address] [place] [phone] Nurse, Med 4 [address] [place] [address] 10/21/2023 8:30 AM EDT Office Visit Cardiology, [facility] [address] [place] [address] Sarah Mohan CRNP [address] [place] [address] 10/27/2023 3:00 PM EDT Office Visit Nephrology, [facility] [address] [place] [address] Shirley Alicea PA-C [address] [place] [address] 11/09/2023 10:00 AM EDT Nurse Only Ancillary [facility] [place] [address] [place] [address] Im, Nurse Annual Wellness [facility] [address] [place] [address] 11/20/2023 9:30 AM EDT Hospital Encounter ENDO OSSC, Endoscopy Room [facility] [address] [place] [phone] Rogelio Yeh MD [address] [place] [address] 11/20/2023 9:30 AM EDT - 11/20/2023 10:00 AM EDT Surgery ENDO OSSC, Endoscopy Room [facility] [address] [place] [phone] Rogelio Yeh MD [address] [place] [address] COLONOSCOPY FLEXIBLE PROXIMAL DIAGNOSTIC 11/23/2023 9:20 AM EDT Office Visit Family Practice [facility] [place] [address] [place] [address] Esperanza Jeffery, 200 [facility] [place] [address] 12/10/2023 3:15 PM EDT Cardiac Studies Cardiac Studies, D[facility] Price [place] [address] [place] [address] 12/10/2023 4:00 PM EDT Cardiac Studies Cardiac Studies, [facility] [address] [place] [address] 01/28/2024 11:00 AM EDT Office Visit Otolaryngology/Hea d & Neck/Facial Plastic Surgery [address] [facility] [place] [address] Tyrone Tenorio MD [address] [place] [address] 03/03/2024 11:00 AM EDT Office Visit Rheumatology [place] [address] [place] [address] Avinash Rasmussen MD [address] [employer] [place] [address] Pending Results Name Type Priority Associated Diagnoses Date /Time ANATOMIC PATHOLOGY (BM/SURGICAL/CYTOLOGY) ADD ON REQUEST Lab Routine EGFR-related lung cancer (HCC) 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) 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) 09/24/2023 12:54 PM EDT Scheduled Procedures Name Priority Associated Diagnoses Date/Ti [...] Additional history exists CKD PHOS USE SMARTSET 97325 09/16/202409/01, 07/28/2022, 06/24/2021, Additional history exists CKD HGB USE SMARTSET 56509 09/20/202409/20, 09/21/2023, 09/17/2023, Additional history exists DTaP,Tdap,and [...] D LEVEL ONCE IN A LIFETIME-USE SMARTSET# 30561 Completed 05/11/2023, 07/28/2022, 06/24/2021, Additional history exists [...] this encounter Medical Devices Implanted Type Area Rotating Equipment Specialist Device Identifier Shelf Expiration Date Model / Serial / Lot 7fr X 24cm Bard Inlay [place] Ureteral Stent Implanted:Qty : 1 on 04/04/2014 by Sawyer Parson MD at OR [facility] Left: Ureter INACTIVE CR [employer] 10/01/2018 [id number] / / [id number] Port Power Mri W/8fr Cath - [id number] Implanted:Qty : 1 on 05/23/2015 by Nay Hernandez MD at OR [facility] Right: Subclavian CR BARD : PERIPHERAL VASCULAR 08/29/2016 [id number] / / [id number] documented as of this encounter Visit Diagnoses Diagnosis 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 Care Teams Workforce Consultant Relationship Specialty Start Date End Date Hank Ivey DO [address] [facility] [place] [place] [address] PCP - General Family Medicine 10/07/16 documented as of this encounter
--- OUTSIDE RECORDS SUMMARY | 2023-09-27 13:09 | External Medical Summary | Summary of Care ---
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) [C78.7] 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) [C79.51] Procedures PRE / POST CARE PRE / POST CARE [facility] [address] [place] [address] Phone: [phone] Or [facility] [address] [place] [id number] Referral ID Status Reason Start Date Expiration Date Visits Re quested Visits Authorized [id number] Encounter Details Date Type Department Care Team (Latest Contact Info) Description 09/22/2023 7:52 AM EDT - 09/22/2023 11:58 AM EDT Hospital Encounter OR [facility], Operating Room, Main Hospital - 4th Floor [address] [place] [address] [facility], In And Out Surgery [address] [place] [address] Discharge Disposition: Home - Self Care Allergies Active Allergy Reactions Criticality Noted Date Comments [place] Oil 02/27/2021 Other reaction(s): ANAPHYLACTIC Ciprofloxacin Rash [...] as of this encounter (statuses as of 09/22/2023) Medications Medication Sig Dispensed Refills Start Date End Date Status amoxicillin (AMOXIL) 500 MG Capsule TAKE 4 CAPSULES BY MOUTH 1 HOUR PRIOR TO APPOINTMENT 4 Cap 3 0 Active Meclizine HCl 25 MG Oral Tablet (Antivert) Take 1 Tab by mouth 3 times a day as needed for Dizziness. 30 Tab 1 1 Active Famotidine 20 MG Oral Tablet (Pepcid)Indications :Nausea without vomiting,Burping Take 1 Tablet by mouth 2 times a day as needed for Heartburn. 60 Tablet 5 1 Active Colchicine 0.6 MG Oral Tablet TAKE 1 TABLET BY MOUTH 2 TIMES A DAY NEEDED FOR FLARE 60 Tablet 1 2 Active Fluticasone Propionate 50 MCG/ACT Nasal Suspension (Flonase)Indication s:ETD (Eustachian tube dysfunction), right Administer 2 Sprays into each nostril in the morning. 48 mL 1 2 Active Vitamin D3 50 MCG (2000 UT) Oral Capsule Take 1 Capsule by mouth in the morning. 90 Capsule 3 3 Active Potassium Citrate ER 10 MEQ (1080 MG) Oral Tablet Extended Release (potassium citrate-10)Indicati ons:Nephrolithiasis ,Stage 3 chronic kidney disease, unspecified whether stage 3a or 3b CKD (HCC) Take 1 Tablet by mouth in the morning and 1 Tablet before bedtime. 180 Tablet 2 3 Active Metoprolol Succinate ER 50 MG Oral Tablet Extended Release 24 Hour (toPROL XL)Indications:HTN, goal below 150/90 Take 1 Tablet by mouth in the morning. 90 Tablet 3 3 Active Eliquis 5 MG Oral TabletIndications:P ulmonary embolism and infarction (HCC) Take 1 Tablet by mouth in the morning and 1 Tablet before bedtime. 180 Tablet 1 3 Active tiZANidine HCl 4 MG Oral CapsuleIndications: Spasm of muscle Take 1 Capsule by mouth 3 times a day as needed for Muscle spasms. 270 Capsule 3 3 Active amLODIPine Besylate 10 MG Oral Tablet (Norvasc)Indication s:Essential hypertension with goal blood pressure less than 140/90 Take 1 Tablet by mouth in the morning. 90 Tablet 2 3 Active hydroCHLOROthiazide 12.5 MG Oral Tablet (Hydrodiuril)Indica tions:Essential hypertension with goal blood pressure less than 140/90 Take 1 Tablet by mouth in the morning. 90 Tablet 3 3 Active Fexofenadine HCl 180 MG Oral Tablet (Ashley) Take 1 Tablet by mouth daily as needed for Allergies. 90 Tablet 3 3 Active Albuterol Sulfate HFA 108 (90 Base) MCG/ACT Inhalation Aerosol SolutionIndications :SOB (shortness of breath) on exertion Inhale 2 Puffs by mouth in the morning and 2 Puffs at noon and 2 Puffs in the evening and 2 Puffs before bedtime. 54 g 1 3 Active Lisinopril 40 MG Oral TabletIndications:H TN, goal below 150/90 Take 1 Tablet by mouth in the morning. 90 Tablet 3 4 Active Magnesium Oxide 400 MG Oral Capsule Take 1 capsule daily. 30 Capsule 5 4 Active Atorvastatin Calcium 20 MG Oral Tablet (Lipitor) Take 1 Tablet by mouth in the morning. 90 Tablet 1 4 Active Ondansetron 4 MG Oral Tablet Disintegrating (Zofran)Indications :Nausea without vomiting Place 1 Tablet on tongue every 8 hours as needed for Nausea. dissolve on tongue. 30 Tablet 4 Active Prochlorperazine Maleate 10 MG Oral Tablet (Compazine)Indicati ons:EGFR-related lung cancer (HCC) Take 1 Tablet by mouth every 6 hours as needed for Nausea. 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 dissolve on tongue. 30 Tablet 4 Active Gabapentin 100 MG Oral Capsule (Neurontin) Take 1 capsule nightly 30 Capsule 4 09/22/19 24 Discontinued Riboflavin 400 MG Oral Tablet Take 1 Tablet by mouth in the morning. 30 Tablet 5 4 09/22/19 24 Discontinued documented as of this encounter (statuses as of 09/22/2023) Active Problems Problem Noted Date Diagnosed Date [...] as of this encounter (statuses as of 09/22/2023) Resolved Problems Problem Noted Date Diagnosed Date [...] as of this encounter (statuses as of 09/22/2023) Immunizations Name Administration Dates Next Due COVID-19 mRNA, LNP-s, No Pre serve, 2-Dose Series ([employer]) 08/26/2021,03/29/2021,07/28/2020,07/02 COVID-19, MRNA-LNP, 23-24, P F, 30 MCG/0.3 mL, 12 YRS AND ABOVE, IM (Memento-Comirnaty) 04/07/2023 Covid-19, Mrna, Lnp-s, Pf, B ivalent, 30 Mcg, IM, 12 yrs and above ([employer]) 02/14/2022 Pneumococcal Conjugate Vacc, 13 Valent (Prevnar) [...] on file documented as of this encounter Last Filed Vital Signs Vital Sign Reading Time Taken Comments Blood Pressure 169/72 09/22/2023 11:38 AM EDT Pulse 72 09/22/2023 11:38 AM EDT Temperature 36.2 C (97.2 F) 09/22/2023 1 1:38 AM EDT Respiratory Rate 22 09/22/2023 11:3 8 AM EDT Oxygen Saturation 95% 09/22/2023 11: 38 AM EDT Inhaled Oxygen Concentration - - Weight 84.8 kg (186 lb 15.2 oz) 09/22/2023 8:06 AM EDT Height 161.3 cm (5' 3.5") 09/22/2023 8:06 AM EDT Body Mass Index 32.59 09/22/2023 8:06 AM EDT documented in this encounter Functional Status Functional Status Response [...] No 07/19/2019 documented as of this encounter Discharge Instructions * Discharge Instr - AVS* Jan Schneider MD - 09/22/2023 10:54 AM EDT Discharge Date: 09/22/2023 Provider: Dr. Jan Schneider If you are experiencing any problems related to your procedure, please contact Interventional Radiology at [phone] during normal business hours: Thursday- Thursday 7:30 am - 4 pm. If a problem occursoutside of normal business hours, please call the hospital buffing machine operator at [phone] and ask for theInterventional Radiologist induction heating equipment setter. Contact scheduling for Interventional Radiology at [phone] during normal business hours: Thursday-Thursday, 7:30 am - 4 pm. The information below provides you with the instructions and the list of medications you need to betaking following discharge from the hospital. If you have any questions, please ask before leaving.Please carry this letter with you when you see your doctor in the clinic. If you have questions, you can reach us at the numbers above. SPECIAL INSTRUCTIONS liver Biopsy Care After Your Biopsy If you experience pain or discomfort at the site you may use a cold pack on the site and/or take acetaminophen (Tylenol) or your preferred pain medicine as directed. Avoid strenuous activity for 24 to 48 hours after the procedure. Do not lift anything heavier than 10 pounds for 3 days after the procedure. Gradually increase your activity after 24 to 48 hours after the procedure. Keep the dressing clean and dry; change as needed. Dressing can be removed in 24 hours. You may shower after 24 hours. Gently wash the area and pat it dry. Please DO NOT take a bath, soak in a hot tub, or swim until the wound is completely healed. Follow Up Your requesting physician will contact you with the results of your test. Please allow 5 to 7 business days for your results. Please check [facility] messages or contact the referring physician for results. When to Call Interventional Radiology Call Interventional Radiology right away if you have any of the following: Fever above 100 degrees Fahrenheit Increased bleeding, redness, swelling, warmth, or discharge at the incision site. Constant or increasing pain, numbness, coldness, or tingling around the incision area. Vomiting or nausea that does not go away If at any time you experience any of the following or feel you are having a medical emergency, [id number] for emergency assistance. Chest Pain Sudden, severe shortness of breath Rapid heart rate Sudden onset of weakness Coughing up blood See your referring physician for follow-up appointment. Do not smoke or use tobacco products in any way! If you feel suicidal or homicidal, please call the crisis hotline at [phone] ([phone]) MODERATE SEDATION You may have received medication that made you comfortable/sedated you during your procedure. This is considered moderate sedation. This medication was given to relax you. You may also not remember having the procedure done. It may take up to 24 hours for this medication to be out of your system. Because of this, you should observe the following for the next 24 hours: Do not drink alcohol or take depressant drugs. Do not operate any type of machinery that requires hand-eye coordination. Do not sign any legal papers or documents. Do not make any financial decisions. You should be in the presence of an adult for the remainder of the day. If you are experiencing any problems related to your procedure, you should contact the Interventional Radiology physician unless otherwise directed. Driving: You may resume driving 2 day . Diet: You may resume your current diet as tolerated. Return to work or school: You may return to school or work 2 days after the procedure, unless otherwise instructed by the physician. 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 Past Medical History: Diagnosis Date Age-related nuclear cataract of both eyes Allergic rhinitis due to pollen 03/01/2009 Axial hypermetropia of both eyes Benign neoplasm of colon 02/11/2012 COLONOSCOPY FLEXIBLE PROXIMAL DIAGNOSTIC performed by Hasmukh Springer MD at END[facility]COPY [facility] adenomatous polyps repeat colonoscopy in 6-8 months Benign neoplasm of colon 08/20/2012 COLONOSCOPY AT [facility] WITH DR. 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 Disclosed 11/24/16. Reviewed significance for cancer history and future screening options. Recommended genetic testing for her 2 sons. 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 Roque Tran in [place]. repeat in 10 years. COLONOSCOPY, DIAGNOSTIC (RECTUM) 02/11/2012 COLONOSCOPY FLEXIBLE PROXIMAL DIAGNOSTIC performed by Hasmukh Springer MD at [facility] adenomatous polyps repeat colonoscopy in 6-8 months COLONOSCOPY, DIAGNOSTIC (RECTUM) 08/20/2012 COLONOSCOPY AT [facility] WITH DR. SPRINGER, BENIGN POLYPS REPEAT COLONOSCOPY IN 6-9 MONTHS COLONOSCOPY, DIAGNOSTIC (RECTUM) 03/24/2013 COLONOSCOPY FLEXIBLE PROXIMAL DIAGNOSTIC performed by Hasmukh Springer MD at [facility] COLONOSCOPY, DIAGNOSTIC (RECTUM) 04/29/2016 diverticulosis, repeat 3 yrs/COLONOSCOPY FLEXIBLE PROXIMAL DIAGNOSTIC performed by Fox Cerda MD at [facility] COLONOSCOPY, DIAGNOSTIC (RECTUM) 04/23/2020 diverticulosis, repeat 3 yrs / COLONOSCOPY FLEXIBLE PROXIMAL DIAGNOSTIC performed by Nellie Gimenez DO at [facility] CYSTO/URETERO W/LITHOTRIPSY Left 04/04/2014 CYSTOURETHROSCOPY URETEROSCOPY WITH LITHOTRIPSY AND STENT INSERTION performed by Sawyer Parson MD at OR [facility] CYSTOSCOPY 02/12/2010 DEXA BODY COMP 1 OR > SITE 01/2009 improving, repeat 3 years. DEXA SCAN/BONE MINERAL AXIAL 03/2002 osteoporosis, improved 3-6% on fosamax, repeat in 2005 DEXA SCAN/BONE MINERAL AXIAL 01/29/2006 improved, repeat 2008 DEXA SCAN/BONE MINERAL AXIAL 02/02/2012 DILATION AND CURETTAGE (D&C) 1978 with polypectomy EXPLORATION OF ABDOMEN N/A 04/16/2015 EXPLORATORY LAPAROTOMY performed by Annabel Turner MD at OR [facility] FEMUR FX, REPAIR Left 12/2019 FRAGMENT KIDNEY STONE BY SHOCK WAVE 05/2013 Lithotripsy (ESWL) INSER TUNN ACC DEV;5 YRS/OLDER Right 05/23/2015 INSERT TUNNELED CENTRAL VENOUS ACCESS WITH SUBQ PORT performed by Nay Hernandez MD at [facility] KNEE ARTHROSCOPY, DIAGNOSTIC 06/1999 Knee Scope,Diagnostic, Dr Leone LASER SURGERY OF INNER EYE STRANDS Right 05/11/2015 Laser procedure of the RIGHT eye; Dr. Lopez LIGATE/CUT OVIDUCT(S) Tubal Ligation REMOVAL OF ADENOIDS, UNDER AGE 12 Adenoids Removal, <12 Y/O REMOVAL OF BREAST, MODIFIED RADICAL Left 1981 LEFT, Dr Mahad Cortez, [facility] with radiation and chemo REMOVAL OF TONSILS, UNDER AGE 12 Tonsils Removal,<12 Y/O REMOVE CATARACT, INSERT LENS PROSTH Right 05/28/[address] Russell REMOVE CATARACT, INSERT LENS PROSTH Right 11/12/2015 OS REVISE KNEE JOINT REPLACEMENT Right 05/19/2017 THORACOSCOPY W/ INFILTRATE BIOPSY Right 07/19/2019 THORACOSCOPY W/ INFILTRATE BIOPSY performed by Benja Merrill MD at [facility] THORACOSCOPY, DIAGNOSTIC, LUNGS Right 03/12/2016 THORACOSCOPY DIAGNOSTIC WITHOUT BIOPSY performed by Benja Merrill MD at [facility] TOTAL ABD HYSTERECTOMY W/WO REMOVAL OF TUBE(S) N/A 04/16/2015 TOTAL ABDOMINAL HYSTERECTOMY WITH OR WITHOUT TUBES AND OVARIES performed by Annabel Turner MD at [facility] Social History Socioeconomic History Marital status: Spouse name: Palmer Number of children: 2 Years of education: 14 Highest education level: Not on file Occupational History Occupation: retired 10/2002 Comment: [employer] Tobacco Use Smoking status: Never Smokeless tobacco: Never Tobacco comments: smoked till 1996 Vaping Use Vaping status: Never Used Substance and Sexual Activity Alcohol use: Yes Comment: rare beer, splits with pizza Drug use: No Sexual activity: Not Currently Other Topics Concern Service No Blood Transfusions No Caffeine Concern Not Asked Occupational Exposure Not Asked Hobby Hazards Not Asked Sleep Concern Not Asked Stress Concern Not Asked Weight Concern Not Asked Special Diet Yes Comment: Ca supp with Vit D Back Care Not Asked Exercise No Comment: hips hurt Bike Helmet Not Asked Seat Belt Not Asked Self-Exams Yes Social History Narrative born Noé Horan MD in [place] since 1965 Iftikhar Aguayo is her granddaughter 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 Social Determinants of Health Financial Resource Strain: Not on file Food Insecurity: No Food Insecurity (10/31/2022) Hunger Vital Sign Worried About Running Out of Food in the Last Year: Never true Ran Out of Food in the Last Year: Never true Transportation Needs: Not on file Physical Activity: Not on file Stress: Not on file Social Connections: Not on file Intimate Partner Violence: Not on file Housing Stability: Not on file Family History Problem Relation Name Age of Onset Cancer Mother 40 breast Mental Disorder Grandmother (Maternal) Alzheimers Heart Disorder Grandfather (Paternal) Cancer Grandmother (Paternal) colon Diabetes None Stroke None Thyroid Disorder None Eye Problems None Patient denies hx AMD, glaucoma, retinal detachments or blindness Review of patient's allergies indicates: Allergen Reactions Paclitaxel Anaphylaxis Other reaction(s): ANAPHYLACTIC [place] Oil Other reaction(s): ANAPHYLACTIC Ciprofloxacin Rash Rash Codeine Nausea/vomiting Other reaction(s): GI SYMPTOMS Cyproheptadine Other reaction(s): lethargy Cyproheptadine Hcl Other (Please comment) Groggy Doxepin Other reaction(s): lethargy Doxepin Hcl Other (Please comment) Groggy Gabapentin Other (Please comment) Says it made her feel "out of it" Other reaction(s): GI SYMPTOMS Hydrocodone Other reaction(s): GI SYMPTOMS Hydrocodone-Acetaminophen Nausea/vomiting Meloxicam Other (Please comment) Dizzy & H/A Other reaction(s): dizzy,headache,nausea Oxycodone Other reaction(s): GI SYMPTOMS Oxycodone-Acetaminophen Nausea/vomiting Tramadol Nausea/vomiting nausea Other reaction(s): GI SYMPTOMS Current Facility-Administered Medications Medication Dose Route Frequency Provider Last Rate Last Admin isolyte-S pH 7.4 infusion Intravenous Continuous Jan Schneider MD 10 mL/hr at 09/22/23 0837 New Bag at 09/22/23 0837 REVIEW OF SYSTEMS: Constitutional: (-) fever chills sweats or weight loss Cardiovascular: (-) negative: no chest pain, dyspnea, syncope, or palpitations Pulmonary: (-) negative: no cough, wheezing, or shortness of breath Abdominal/GI: (-) negative: no pain, heartburn, dysphagia, bleeding, change in bowel habits, nauseaor vomiting OBJECTIVE: BP 160/87 | Pulse 76 | Temp 36.4 C (97.5 F) (Temporal Artery) | Resp 18 | Ht 1.613 m (5' 3.5") | Wt 84.8 kg (186 lb 15.2 oz) | SpO2 96% | BMI 32.59 kg/m | BSA 1.95 m PHYSICAL EXAM: Constitutional: no acute distress CV: normal rate and rhythm, no murmur, gallops or rub Chest: normal respiratory effort, lungs clear to auscultation and percussion, breath sounds normal Abdomen: normal: soft, bowel sounds normal, no masses, tenderness or organomegaly LABS: CBC Results: PT INR Results: Results for orders placed or performed in visit on 09/18/23 PT INR Result Value Ref Range Prothrombin Time 15.6 (H) 11.6 - 15.2 seconds INR 1.2 0.8 - 1.2 *Note: Due to a large number of results and/or encounters for the requested time period, some results have not been displayed. A complete set of results can be found in Results Review. BUN Results: Lab Results Component Value Date/Time BUN - [facility] 18 09/21/2023 09:26 AM BUN - [facility] 23 (H) 09/17/2023 11:17 AM BUN - [facility] 32 (H) 08/20/2023 12:34 PM BUN - [facility] 27 (H) 04/20/2020 02:03 PM BUN - [facility] 31 (H) 02/03/2020 04:22 PM BUN - [facility] 25 (H) 01/06/2020 02:16 PM Creatinine Results: Lab Results Component Value Date/Time CREATININE - [facility] 1.1 (H) 09/21/2023 09:26 AM CREATININE - [facility] 1.3 (H) 09/17/2023 11:17 AM CREATININE - [facility] 1.2 (H) 08/20/2023 12:34 PM CREATININE - [facility] 1.2 (H) 04/20/2020 02:03 PM CREATININE - [facility] 1.3 (H) 02/03/2020 04:22 PM CREATININE - [facility] 1.5 (H) 01/06/2020 02:16 PM CREATININE, 24 HOUR URINE 1015 07/30/2022 09:51 AM CREATININE, 24 HR UR 1,022 04/20/2020 02:03 PM CREATININE, RANDOM URINE - [facility] 141 05/12/2022 09:56 AM CREATININE, RANDOM URINE - [facility] 399 02/05/2021 10:49 AM CREATININE, RANDOM URINE - [facility] 387 02/05/2021 10:49 AM CREATININE, RANDOM URINE - [facility] 336 01/06/2020 02:30 PM CREATININE, RANDOM URINE - [facility] 161 11/09/2019 10:46 AM CREATININE, RANDOM URINE - [facility] 267 01/21/2017 08:35 AM CREATININE-OUTSIDE LAB 1.06 06/28/2018 12:00 AM CREATININE-OUTSIDE LAB 1.10 04/20/2017 12:00 AM CREATININE-OUTSIDE LAB 1.10 12/12/2016 12:00 AM Potassium Results: Lab Results Component Value Date/Time POTASSIUM - [facility] 3.9 09/21/2023 09:26 AM POTASSIUM - [facility] 3.8 09/17/2023 11:17 AM POTASSIUM - [facility] 4.3 08/20/2023 12:34 PM POTASSIUM - [facility] 4.1 04/20/2020 02:03 PM POTASSIUM - [facility] 4.3 02/03/2020 04:22 PM POTASSIUM - [facility] 4.4 01/06/2020 02:16 PM POTASSIUM, 24 HOUR URINE 62 07/30/2022 09:51 AM POTASSIUM, 24 HR UR 36 04/20/2020 02:03 PM POTASSIUM-OUTSIDE LAB 3.8 06/28/2018 12:00 AM POTASSIUM-OUTSIDE LAB 3.3 (A) 04/20/2017 12:00 AM POTASSIUM-OUTSIDE LAB 3.1 (A) 12/12/2016 12:00 AM INFORMED CONSENT: Yes PRE-SEDATION ASSESSMENT IMPRESSION/PLAN: Liver bx Jan Schneider MD documented in this encounter Nursing Notes * Denise Morelos, RN - 09/22/2023 11:55 AM EDT [place] [address] SameDay Surgery Discharge Note Name: Dianne Aguayo Date: 09/22/2023 Time: 11:55 AM Discharge Disposition: Home Responsible adult as escort home: yes Transport Mode: Wheelchair Accompanied by: staff To: Car Belongings with patient: Yes Patient meets criteria to be transferred or discharged. * George Rajan RN - 09/22/2023 9:14 AM EDT Procedure: CT Guided liver biopsy Pt placed on procedure table with comfort measures intact. Hemodynamic monitoring placed and initiated, VS stable. Pt denies any complaints at current time. Pre medicated with zofran in same day surgery per patient request. CT ladies attendant images obtained. Timeout performed by Dr. Jan Schneider at 0934. Dr. Schneider reassessed patient immediately prior to moderate sedation administration and procedure start. Site A: Patient prepped for procedure. Skin around biopsy area cleaned with chloraprep and dried. 9 mL 1% buffered lidocaine administered locally to mid upper abdomen by . Access obtained. Images obtained. Access advanced. Images obtained. Biopsy obtained. Slides prepared and given to label printing machinist who used telecytology method to verify adequacy of cellular material. Access removed. Pressure applied by MD. Gauze and Tegaderm applied to site. Post procedure image obtained. Site B: 7 mL 1% buffered lidocaine administered locally to RUQ abdomen by . Access obtained. Images obtained. Access advanced. Images obtained. Biopsy obtained. Slides prepared and given to label printing machinist who used telecytology method to verify adequacy of cellular material. Access removed. Pressure applied by MD. Gauze and Tegaderm applied to site. Post procedure image obtained. Patient tolerated procedure well without complications. All wires, catheters, sheaths and other devices have been inspected prior to the procedure for damage. All items not intended to remain in the patient have been inspected, accounted for and have beenremoved from the patient at the end of the procedure. This has been confirmed by the operating physician. Pt recieved moderate sedation for their procedure, the patient recieved fentanyl and versed and wassedated for a total of 33 minutes. Start 0935 End 1008 Total medications given Versed: 2 mg Fentanyl: 100 mcg 1% buffered lidocaine: 16 mL * Yue Rosado RN - 09/22/2023 9:03 AM EDT Patient does not meet criteria for testing. documented in this encounter Miscellaneous Notes * Pre-Sedation Assessment - Jan Schneider MD - 09/22/2023 9:24 AM EDT PRE-SEDATION ASSESSMENT PRE-SEDATION ASSESSMENT: Liver Bx Level of sedation planned: Minimal Patient's allergies reviewed: Yes Difficulty with sedation / anesthesia: No Sleep apnea: No History of snoring: No History of difficult intubation: No Decreased ROM neck flexion/extension: No Tracheal deviation: No Decreased ability to open mouth / TMJ: No Loose teeth / dentures / partial: No Congenital deformities / abnormalities: No Dysphagia: No Mallampati Classification: II - soft palate, uvula, fauces visible Chest: Clear Heart: Regular Rhythm ASA Risk Stratification (Select One): ASA 2 - Mild systemic disease, no functional limitations The patient was reevaluated immediately prior to the sedation: 09/22/2023 9:24 AM documented in this encounter Plan of Treatment Upcoming Encounters Date Type Department Care Team (Latest Contact Info) Description 09/24/2023 1:30 PM EDT Pharmacy Pharmacy Hematology Oncology [facility] [place] [address] [place] [address] [facility] Hem/Onc [address] [place] [address] 09/29/2023 1:00 PM EDT Office Visit [facility] [address] [place] [address] Hank Ivey, DO [address] [facility] [address] 09/30/2023 12:30 PM EDT Office Visit Gynecology/Oncolog y, [place] [address] [place] [address] Ama Ruano PA-C [address] [place] [address] 10/01/2023 8:30 AM EDT Hospital Encounter MRI, [address] [address] 10/01/2023 10:00 AM EDT Documentation Radiation Oncology, [place] [address] [address] [facility] [place] [address] Prakash Vyas MD [address] [place] [address] 10/06/2023 1:00 PM EDT Immunization/Injectio n Hematology/Oncolog y Treatment, [place] [address] [place] [phone] Nurse, Med 4 [address] [place] [address] 10/21/2023 8:30 AM EDT Office Visit Cardiology, [facility] [address] [place] [address] Sarah Mohan CRNP [address] [place] [address] 10/27/2023 3:00 PM EDT Office Visit Nephrology, [facility] [address] [facility] [place] [address] ZemaitisShirley PA-C [address] [facility] [address] [place] [address] 11/09/2023 10:00 AM EDT Nurse Only Ancillary [facility] [place] [address] [facility] [place] [address] Im, Nurse Annual Wellness [facility] [address] [facility] [address] [place] [address] 11/20/2023 9:30 AM EDT Hospital Encounter ENDO [facility], Endoscopy Room [facility] [address] [place] [phone] Rogelio Yeh MD [address] [place] [address] 11/20/2023 9:30 AM EDT - 11/20/2023 10:00 AM EDT Surgery ENDO [facility], Endoscopy Room [facility] [address] [place] [address] Rogelio Yeh MD [address] [place] [address] COLONOSCOPY FLEXIBLE PROXIMAL DIAGNOSTIC 11/23/2023 9:20 AM EDT Office Visit Family Practice [facility] [address] [facility] [place] [address] Esperanza Jeffery, [address] [facility] [place] [address] 12/10/2023 3:15 PM EDT Cardiac Studies Cardiac Studies, [facility] 132 [facility] [place] [address] 12/10/2023 4:00 PM EDT Cardiac Studies Cardiac Studies, [facility] [address] 01/28/2024 11:00 AM EDT Office Visit Otolaryngology/Hea d & Neck/Facial Plastic Surgery [address] [place] [address] Tyrone Tenorio MD [address] [place] [address] 03/03/2024 11:00 AM EDT Office Visit Rheumatology [address] [place] [address] Avinash Rasmussen MD [address] [place] [address] [place] [address] Pending Results Name Type Priority Associated Diagnoses Date /Time CYTOLOGY Pathology Routine 09/22/2023 10: 00 AM EDT Scheduled Orders Name Type Priority Associated Diagnoses Orde r Schedule CYTOLOGY Pathology Routine One Time for 1 Occurrences starting 09/22/2023 until 09/22/2023, 1 completed Scheduled Procedures Name Priority Associated Diagnoses Date/Ti [...] Additional history exists CKD PHOS USE SMARTSET 97231 09/16/202409/01, 07/28/2022, 06/24/2021, Additional history exists CKD HGB USE SMARTSET 66965 09/20/202409/20, 09/21/2023, 09/17/2023, Additional history exists DTaP,Tdap,and [...] D LEVEL ONCE IN A LIFETIME-USE SMARTSET# 93944 Completed 05/11/2023, 07/28/2022, 06/24/2021, Additional history exists [...] this encounter Medical Devices Implanted Type Area Repairer Handtools Device Identifier Shelf Expiration Date Model / Serial / Lot 7fr X 24cm Bard Inlay [place] Ureteral Stent Implanted:Qty : 1 on 04/04/2014 by Sawyer Parson MD at OR [facility] Left: Ureter INACTIVE CR [employer]ARD INC 10/01/2018 [id number] / / [id number] Port Power Mri W/8fr Cath - [id number] Implanted:Qty : 1 on 05/23/2015 by Nay Hernandez MD at OR [facility] Right: Subclavian CR BARD : PERIPHERAL VASCULAR 08/29/2016 [id number] / / [id number] documented as of this encounter Administered Medications Inactive Administered Medications - up to 3 most recent administrations Medication Order MAR Action Action Date Dose Rate Site fentaNYL (PF) inj ONCE PRN NARRATOR, Starting on Thu09/22/23 at 0936, Until Thu09/22/23 at 0951 Given 09/22/2023 9:51 AM EDT 50 mcg Given 09/22/2023 9:36 AM EDT 50 mcg isolyte-S pH 7.4 infusion Intravenous, at 10 mL/hr, Plasma-LYTE 148, isolyte-S, and isolyte-S pH 7.4 are considered equivalent - including for MAR barcode scanning., CONTINUOUS, Starting on Thu09/22/23 at 0830, Until Thu09/22/23 at 1558 New Bag 09/22/2023 8:37 AM EDT 10 mL/hr midazolam (Versed) 2 MG/2ML inj ONCE PRN NARRATOR, Starting on Thu09/22/23 at 0935, Until Thu09/22/23 at 0951 Given 09/22/2023 9:51 AM EDT 1 mg Given 09/22/2023 9:35 AM EDT 1 mg ondansetron (Zofran) inj 4 mg 4 mg, IV Push, ONCE, On Thu09/22/23 at 0915, For 1 dose, Pre-Op Given 09/22/2023 8:42 AM EDT 4 mg documented in this encounter Active and Recently Administered Medications Times are shown in EDT. Scheduled Medication Order 09/20/2023 09/21/2023 09/22/2023 ondansetron (Zofran) inj 4 mg (COMPLETED) 4 mg, IV Push, ONCE, On e 09/22/23 at 0915, For 1 dose, Pre-Op 0842 (Given - Provid er: Yue Rosado RN) Continuous Medication Order 09/20/2023 09/21/2023 09/22/2023 isolyte-S pH 7.4 infusion Intravenous, at 10 mL/hr, Plasma-LYTE 148, isolyte-S, and isolyte-S pH 7.4 are considered equivalent - including for MAR barcode scanning., CONTINUOUS, Starting on Thu09/22/23 at 0830, Until Thu09/22/23 at 1558 0837 (New Bag - Prov ider: Yue Rosado RN) PRN Medication Order 09/20/2023 09/21/2023 09/22/2023 fentaNYL (PF) inj (COMPLETED) ONCE PRN NARRATOR, Starting on Thu09/22/23 at 0936, Until Thu09/22/23 at 0951 0936 (Given - Provid er: Veronica Quarles RN)0951 (Given - Provider: Veronica Quarles RN) midazolam (Versed) 2 MG/2ML inj (COMPLETED) ONCE PRN NARRATOR, Starting on Thu09/22/23 at 0935, Until Thu09/22/23 at 0951 0935 (Given - Provid er: Veronica Quarles RN)0951 (Given - Provider: Veronica Quarles RN) documented in this encounter Advance Directives * [...] and were consensually agreed upon. Care Teams Diamond Selector Relationship Specialty Start Date End Date Hank Ivey DO [address] [place] [address] PCP - General Family Medicine 10/07/16 documented as of this encounter
--- OUTSIDE RECORDS SUMMARY | 2023-09-27 13:09 | External Medical Summary | Summary of Care ---
Author Name Unknown Organization [facility] Address [address] [place] [address] Phone [phone] Care Team Providers Care Manager Trade Marketing Name Role Phone Hank Ivey Primary Care Provider [phone] Reason for Visit * Reason Onset Date Comments Appointment 09/21/2023 Encounter Details Date Type Department Care Team ([facility] Contact Info) Description 09/21/2023 Telephone Hematology/Oncology [facility] 200 [place] [phone] Trish Grimaldo MD [address] [place] [address] Appointment Allergies Active Allergy Reactions Criticality Noted Date Comments [place] Oil 02/27/2021 Other reaction(s): ANAPHYLACTIC Ciprofloxacin Rash [...] genetic testing for her 2 sons. Elyssa Sesay Joel, MS 11/12/2016, 2:08 PM History of malignant [...] mRNA, LNP-s, No Pre serve, 2-Dose Series (MetaJure) 08/26/2021,03/29/2021,07/28/2020,07/02 COVID-19, MRNA-LNP, 23-24, P F, 30 MCG/0.3 mL, 12 YRS AND ABOVE, IM (Mytrus-Comirnat) 04/07/2023 Covid-19, Mrna, Lnp-s, Pf, B ivalent, 30 Mcg, IM, 12 yrs and above (MetaJure) 02/14/2022 Pneumococcal Conjugate Vacc, 13 Valent (Prevnar) 08/22/2014,08/02/2014(Deferred: Patient Refused - Patient wants to check with her insurance prior to receiving vaccine) Pneumococcal Polysaccharide PPV23 (Pneumovax) 04/05/2010,05/19/2001 RSV Vac., Bivalent, Perfusio n F, Pf,0.5 Ml (Abrysvo) 06/19/2023 Seasonal Influenza Virus Vac cine, Unspecified Formulation 01/18/2021,02/02/2020,01/10/2019,02/08,01/08/2017,02/14/2016,02/01/2014 ,01/31/2013,01/12/2012,02/11/2011,02/03,01/16/2009,02/23/2008, 7,03/05/2006,03/18/2005,02/13/2004 Seasonal Influenza, PF, 6 M & above, IM , (FluLaval or Fluzone) 02/02/2020,02/08/2018 Seasonal Influenza, Quadriva lent Hd (Fluzone Hd) 01/20/2023,01/20/2022,01/18/2021 Seasonal Influenza, Quadriva lent, No Preserve, IM 01/08/2017,02/14/2016,02/05/2015 Seasonal Influenza, Split, I IV3, With Preserve, Inj 02/01/2014,01/31/2013,01/12/2012,02/11,03/02/2010,01/16/2009,02/23/2008 ,02/03/2007,03/05/2006,03/18/2005,02/01 Seasonal Influenza, Trivalen t, Adjuvanted, 65+ yrs 01/10/2019 TD - Tetanus/Diptheria (ADULT) 12/03/1999 TD, Preservative Free 04/18/2010 TDAP (age 10 [...] encounter Miscellaneous Notes * Telephone Encounter - Edgardo Luo OSA - 09/21/2023 3:32 PM EDT Called patients daughter. ECHO And EKG are set up, and daughter is aware of the dates and times: ECHO 10/08/2023 Status: Abi Time: 1:00 PM Length: 60 Visit Type: ECHOCARDIOGRAM [106627] Reg Status: Verified Copay: $0.00 Provider: ECHO WILLIAM3 GW EKG Name: Dianne Aguayo Date: 10/08/2023 Status: Abi Time: 12:30 PM Length: 15 Visit Type: NURSE [117] Reg Status: Verified Copay: $0.00 Provider: NURSE MELANIE ARNOLD * Telephone Encounter - Sarah Sr OSA - 09/21/2023 1:54 PM EDT Request Summary [[id number]] Procedure: ECHO, COMPLETE (2D), TRANS-THORACIC Status: Needs Scheduling Requested appt date: Authorizing: Kush Linton MD in HEM/ONC [facility] Referral: [id number] (Pending Review) Expires: 09/20/2024 (4 of 4 remaining) Priority: Routine 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 oral chemo monitoring Where is this test being performed? Request History Action Date and Time User Details Request Created 09/21/2023 08:57 Inge Angulo, [facility] Orders Only Encounter Workqueue Summary Current Workqueues Entry Current Tab CARDIAC STUDIES ORDERS [[id number]] 09/21/2023 08:57 Active Details Requesting this be done within 10 days. There is nothing avail. Pts daughter is asking if the EKG could possible be done same day. Okay if not. Valeri Dede [phone] Please call daughter to scheduled as pt is hard of hearing documented in this encounter Plan of Treatment Upcoming Encounters Date Type Department Care Team (Latest Contact Info) Description 09/22/2023 9:00 AM EDT Hospital Encounter OR [facility], Operating Room, [facility] - 4th Floor [address] [place] [address] [facility], In And Out Surgery [address] [place] [address] 09/22/2023 9:00 AM EDT Appointment Radiology, [facility] [address] [place] [address] 09/22/2023 9:00 AM EDT - 09/22/2023 10:00 AM EDT Surgery [facility] [address] [place] [address] [facility], In And Out Surgery [facility] [place] [address] PRE / POST CARE 09/24/2023 1:30 PM EDT Pharmacy Pharmacy Hematology Oncology [address] [place] [phone] [facility]Onc [address] [place] [address] 09/29/2023 1:00 PM EDT Office Visit [facility] [address] [place] [address] Hank Ivey, DO [address] [place] [address] 09/30/2023 12:30 PM EDT Office Visit Gynecology/Oncolog y, [place] [address] [place] [address] Ama Ruano PA-C [address] [place] [address] 10/01/2023 8:30 AM EDT Hospital Encounter MRI, [place] [address] [place] [address] 10/01/2023 10:00 AM EDT Documentation Radiation Oncology, [place] [address] [place] [address] Prakash Vyas MD [address] [place] [address] 10/06/2023 1:00 PM EDT Immunization/Injectio n Hematology/Oncolog y Treatment, [place] [address] [facility] [address] [place] [phone] Nurse, Med 200 [facility] [place] [address] 10/08/2023 12:30 PM EDT Cardiac Studies Cardiac Studies, Dami Arnold [place] 132 [facility] [place] [address] 10/08/2023 1:00 PM EDT Cardiac Studies Cardiac Studies, Dami Arnold [place] 132 [facility] [place] [address] 10/21/2023 8:30 AM EDT Office Visit Cardiology, [facility] [address] [place] [address] Sarah Mohan CRNP [address] [place], [place] [address] 10/27/2023 3:00 PM EDT Office Visit Nephrology, [facility] [address] [place] [address] Shirley Alicea PA-C [address] [place] [address] 11/09/2023 10:00 AM EDT Nurse Only Ancillary [facility] [place] [address] [place] [address] Im, Nurse Annual Wellness [facility] 200 [facility] [place] [address] 11/20/2023 9:30 AM EDT Hospital Encounter ENDO [facility], Endoscopy Room [facility] [address] [place] [phone] Rogelio Yeh MD [address] [place] [address] 11/20/2023 9:30 AM EDT - 11/20/2023 10:00 AM EDT Surgery ENDO [facility], Endoscopy Room [facility] [address] [place] [phone] Rogelio Yeh MD [address] [place] [address] COLONOSCOPY FLEXIBLE PROXIMAL DIAGNOSTIC 11/23/2023 9:20 AM EDT Office Visit Family Practice [facility] [address] [place] [address] Esperanza Jeffery DO [address] [place] [address] 12/10/2023 4:00 PM EDT Cardiac Studies Cardiac Studies, [facility] [address] [place] [address] 01/28/2024 11:00 AM EDT Office Visit Otolaryngology/Hea d & Neck/Facial Plastic Surgery [address] [place] [address] Tyrone Tenorio MD [address] [place] [address] 03/03/2024 11:00 AM EDT Office Visit Rheumatology [place] [address] [employer] [place] [address] Avinash Rasmussen MD [facility] [employer] [place] [address] Scheduled Procedures Name Priority Associated Diagnoses Date/Ti [...] Additional history exists CKD PHOS USE SMARTSET 22569 09/16/202409/01, 07/28/2022, 06/24/2021, Additional history exists CKD HGB USE SMARTSET 51304 09/20/202409/20, 09/21/2023, 09/17/2023, Additional history exists DTaP,Tdap,and [...] D LEVEL ONCE IN A LIFETIME-USE SMARTSET# 86394 Completed 05/11/2023, 07/28/2022, 06/24/2021, Additional history exists [...] this encounter Medical Devices Implanted Type Area Heat And Frost Insulator Device Identifier Shelf Expiration Date Model / Serial / Lot 7fr X 24cm Bard Inlay [place] Ureteral Stent Implanted:Qty : 1 on 04/04/2014 by Sawyer Parson MD at OR [facility] Left: Ureter INACTIVE CR [employer]ARD INC 10/01/2018 [id number] / / [id number] Port Power Mri W/8fr Cath - [id number] Implanted:Qty : 1 on 05/23/2015 by aNy Hernandez MD at OR [facility] Right: Subclavian CR BARD : PERIPHERAL VASCULAR 08/29/2016 [id number] / / [id number] documented as of this encounter Advance Directives [...] and were consensually agreed upon. Care Teams Manager Trade Marketing Relationship Specialty Start Date End Date Hank Ivey DO 200 [facility] [place] [address] PCP - General Family Medicine 10/07/16 documented as of this encounter
--- OUTSIDE RECORDS SUMMARY | 2023-09-27 13:09 | External Medical Summary | Summary of Care ---
Author Name Unknown Organization [facility] Address [address] [place] [address] Phone [phone] Care Team Providers Care Gun Fitter Name Role Phone Hank Ivey Primary Care Provider [phone] Reason for Visit * Reason Onset Date Comments Appointment 09/21/2023 Encounter Details Date Type Department Care Team ([facility] Contact Info) Description 09/21/2023 Telephone Hematology/Oncology [facility] [address] [place] [phone] Trish Grimaldo MD [address] [place] [address] Appointment Allergies Active Allergy Reactions Criticality Noted Date Comments [place] Oil 02/27/2021 Other reaction(s): ANAPHYLACTIC Ciprofloxacin Rash [...] mRNA, LNP-s, No Pre serve, 2-Dose Series (Little Bird) 08/26/2021,03/29/2021,07/28/2020,07/02 COVID-19, MRNA-LNP, 23-24, P F, 30 MCG/0.3 mL, 12 YRS AND ABOVE, IM (Uniken Systems-Comirnat) 04/07/2023 Covid-19, Mrna, Lnp-s, Pf, B ivalent, 30 Mcg, IM, 12 yrs and above (Little Bird) 02/14/2022 Pneumococcal Conjugate Vacc, 13 Valent (Prevnar) [...] encounter Miscellaneous Notes * Telephone Encounter - Sarah Sr OSA - 09/21/2023 1:54 PM EDT Request Summary [[id number]] Procedure: ECHO, COMPLETE (2D), TRANS-THORACIC Status: Needs Scheduling Requested appt date: Authorizing: Kush Linton MD in HEM/ONC [facility] Referral: [id number] (Pending Review) Expires: 09/20/2024 (4 of 4 remaining) Priority: Routine 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 oral chemo monitoring Where is this test being performed? Request History Action Date and Time User Details Request Created 09/21/2023 08:57 Inge Angulo [facility] Orders Only Encounter Workqueue Summary Current Workqueues Entry Current Tab CARDIAC STUDIES ORDERS [[id number]] 09/21/2023 08:57 Active Details Requesting this be done within 10 days. There is nothing avail. Pts daughter is asking if the EKG could possible be done same day. Okay if not. Valeri Aguayo [phone] Please call daughter to scheduled as pt is hard of hearing documented in this encounter Plan of Treatment Upcoming Encounters Date Type Department Care Team (Latest Contact Info) Description 09/22/2023 9:00 AM EDT Hospital Encounter OR [place], Operating Room, [facility] - 4th Floor [address] [place] [address] [facility], In And Out Surgery [address] [place] [address] 09/22/2023 9:00 AM EDT Appointment Radiology, [facility] [address] [place] [address] 09/22/2023 9:00 AM EDT - 09/22/2023 10:00 AM EDT Surgery OR [facility], Operating Room, [facility] - 4th Floor [address] [place] [address] [facility], In And Out Surgery [address] [place] [address] PRE / POST CARE 09/24/2023 1:30 PM EDT Pharmacy Pharmacy Hematology Oncology [facility] [place] [address] [place] [address] [facility] Hem/Onc [address] [place] [address] 09/29/2023 1:00 PM EDT Office Visit Family Practice [facility] [place] [address] [place], [place] [address] Hank Ivey, DO [address] [place] [address] 09/30/2023 12:30 PM EDT Office Visit Gynecology/Oncolog y, [place] [address] [place] [address] Ama Ruano PA-C [address] [place] [address] 10/01/2023 8:30 AM EDT Hospital Encounter [facility], [place] [address] [place] [address] 10/01/2023 10:00 AM EDT Documentation Radiation Oncology, [place] [address] [place] [address] Prakash Vyas MD [address] [place] [address] 10/06/2023 1:00 PM EDT Immunization/Injectio n Hematology/Oncolog y Treatment, [place] [address] [facility] [address] [address] [place] [phone] Nurse, Med 200 [facility] [place] [address] 10/21/2023 8:30 AM EDT Office Visit Cardiology, [facility] 132 [facility] [place] [address] Sarah Mohan CRNP [address] [facility] [place] [address] 10/27/2023 3:00 PM EDT Office Visit Nephrology, [facility] 200 [facility] [place] [address] ZemaitisShirley PA-C 200 [facility] [place] [address] 11/09/2023 10:00 AM EDT Nurse Only Ancillary [facility] [place] 200 [facility] [place] [address] Im, Nurse Annual Wellness [facility] 200 [facility] [place] [address] 11/20/2023 9:30 AM EDT Hospital Encounter [facility]O [facility], Endoscopy Room [facility] [address] [place] [phone] Rogelio Yeh MD [address] [place] [address] 11/20/2023 9:30 AM EDT - 11/20/2023 10:00 AM EDT Surgery ENDO [facility], Endoscopy Room [facility] [address] [place] [phone] Rogelio Yeh MD [address] [place] [address] COLONOSCOPY FLEXIBLE PROXIMAL DIAGNOSTIC 11/23/2023 9:20 AM EDT Office Visit Family Practice [facility] [place] 200 [facility] [place] [address] Esperanza Jeffery, 200 [facility] [place] [address] 01/28/2024 11:00 AM EDT Office Visit Otolaryngology/Hea d & Neck/Facial Plastic Surgery [address] [place] [address] Tyrone Tenorio MD [address] [place] [address] 03/03/2024 11:00 AM EDT Office Visit Rheumatology [facility] [address] [place] [address] Avinash Rasmussen MD [address] [facility] [place] [address] Scheduled Procedures Name Priority Associated Diagnoses Date/Ti [...] Additional history exists CKD PHOS USE SMARTSET 77064 09/16/202409/01, 07/28/2022, 06/24/2021, Additional history exists CKD HGB USE SMARTSET 40771 09/20/202409/20, 09/21/2023, 09/17/2023, Additional history exists DTaP,Tdap,and [...] D LEVEL ONCE IN A LIFETIME-USE SMARTSET# 95106 Completed 05/11/2023, 07/28/2022, 06/24/2021, Additional history exists [...] this encounter Medical Devices Implanted Type Area Shell Freezing Machine Operator Device Identifier Shelf Expiration Date Model / Serial / Lot 7fr X 24cm Bard Inlay [place] Ureteral Stent Implanted:Qty : 1 on 04/04/2014 by Sawyer Parson MD at OR [facility] Left: Ureter INACTIVE CR BARD INC 10/01/2018 [id number] / / [id number] Port Power Mri W/8fr Cath - [id number] Implanted:Qty : 1 on 05/23/2015 by Nay Hernandez MD at OR [facility] Right: Subclavian CR BARD : PERIPHERAL VASCULAR 08/29/2016 [id number] / / [id number] documented as of this encounter Advance Directives [...] and were consensually agreed upon. Care Teams Gun Fitter Relationship Specialty Start Date End Date Hank Ivey DO [address] [place] [address] PCP - General Family Medicine 10/07/16 documented as of this encounter
--- OUTSIDE RECORDS SUMMARY | 2023-09-27 13:10 | External Medical Summary | Summary of Care ---
Author Name Unknown Organization [facility] Address [address] [place] [address] Phone [phone] Care Team Providers Care Mail Carrier And Clerk Name Role Phone BladeHank goodman Primary Care Provider Reason for Visit * Reason Comments Outpatient Testing Encounter Details Date Type Department Care Team ([facility] st Contact Info) Description 09/18/2023 1:30 PM EDT Laboratory Laboratory [facility] [address] [place] [phone] [place], Lab Scenery [address] [place] [address] History of malignant neoplasm of upper lobe bronchus or lung Allergies Active Allergy Reactions Criticality Noted Date Comments [place] Oil 02/27/2021 Other reaction(s): ANAPHYLACTIC Ciprofloxacin Rash [...] as of this encounter (statuses as of 09/18/2023) Medications Medication Sig Dispensed Refills Start Date End Date Status amoxicillin (AMOXIL) 500 MG Capsule TAKE 4 CAPSULES BY MOUTH 1 HOUR PRIOR TO APPOINTMENT 4 Cap 3 05/10/2019 Active Meclizine HCl 25 MG Oral Tablet (Antivert) Take 1 Tab by mouth 3 times a day as needed for Dizziness. 30 Tab 1 11/13/2020 Active Ondansetron HCl 8 MG Oral TabletIndications:EG FR-related lung cancer (HCC) Take 1 Tab by mouth every 8 hours as needed for Nausea. 30 Tab 2 11/13/2020 Active Famotidine 20 MG Oral Tablet [...] (Neurontin) Take 1 capsule nightly 30 Capsule 0 06/23/2023 Active Magnesium Oxide 400 MG Oral [...] for Nausea. dissolve on tongue. 30 Tablet 0 08/20/2023 Active Prochlorperazine Maleate 10 MG Oral [...] for Nausea. dissolve on tongue. 30 Tablet 0 09/17/2023 Active Hospital, Clinic, or Other Facility Administered Medication Ordered Dose Route Frequency Start Date End Date Status albuterol (PROVENTIL HFA) inhaler 4 PuffIndications:SOB (shortness of breath) 4 Puff IN Q4H PRN 01/23/2017 Act jacinta documented as of this encounter (statuses as of 09/18/2023) Active Problems Problem Noted Date Diagnosed Date [...] as of this encounter (statuses as of 09/18/2023) Resolved Problems Problem Noted Date Diagnosed Date [...] as of this encounter (statuses as of 09/18/2023) Immunizations Name Administration Dates Next Due COVID-19 mRNA, LNP-s, No Pre serve, 2-Dose Series (Pace4Life) 08/26/2021,03/29/2021,07/28/2020,07/02 COVID-19, MRNA-LNP, 23-24, P F, 30 MCG/0.3 mL, 12 YRS AND ABOVE, IM (Tomfoolery-Comirnat) 04/07/2023 Covid-19, Mrna, Lnp-s, Pf, B ivalent, [...] Care Team (Latest Contact Info) Description 09/21/2023 10:30 AM EDT Immunization/Injectio n Hematology/Oncolog y Treatment, [place] [address] [place] [place] [phone] Nurse, Med [address] [place] [address] 09/21/2023 1:00 PM EDT Pharmacy [facility] [address] [place] [address] [facility] Hem[facility]Onc [address] [place] [address] 09/22/2023 9:00 AM EDT Hospital Encounter OR [facility], Operating Room, [facility] - 4th [facility] [address] [facility] [place] [address] [facility], In And Out Surgery [address] [place] [address] 09/22/2023 9:00 AM EDT Appointment Radiology, [facility] [address] [place] [place] [address] 09/22/2023 9:00 AM EDT - 09/22/2023 10:00 AM EDT Surgery OR [facility], Operating Room, [facility] - 4th Floor [address] [place] [address] [facility], In And Out Surgery [address] [place] [address] PRE / POST CARE 09/29/2023 1:00 PM EDT Office Visit [facility] [address] [place] [address] Hank Ivey DO [address] [place] [address] 09/30/2023 12:30 PM EDT Office Visit Gynecology/Oncolog y, [place] [address] [place] [address] Ama Ruano PA-C [address] [place] [address] 10/01/2023 8:30 AM EDT Appointment MRI, [place] [address] [place] [address] 10/01/2023 10:00 AM EDT Documentation Radiation Oncology, [place] [address] [place] [address] Prakash Vyas MD [address] [place] [address] 10/06/2023 1:00 PM EDT Immunization/Injectio n Hematology/Oncolog y Treatment, [place] [address] [place] [phone] Nurse, Med 4 [address] [place] [address] 10/21/2023 8:30 AM EDT Office Visit Cardiology, [facility] [address] [place] [address] Sarah Mohan CRNP [address] [place] [address] 10/27/2023 3:00 PM EDT Office Visit Nephrology, [facility] [address] [place] [address] ZeShirley suazo PA-C [address] [place] [address] 11/09/2023 10:00 AM EDT Nurse Only Ancillary [facility] [place] [address] [place] [address] Im, Nurse Annual Wellness [facility] [address] [place] [address] 11/20/2023 9:30 AM EDT Hospital Encounter ENDO [facility], Endoscopy Room [facility] [address] [place] [phone] Rogelio Yeh MD [address] [place] [address] 11/20/2023 9:30 AM EDT - 11/20/2023 10:00 AM EDT Surgery ENDO [facility], Endoscopy Room [facility] [address] [place] [phone] Rogelio Yeh MD [address] [place] [address] COLONOSCOPY FLEXIBLE PROXIMAL DIAGNOSTIC 11/23/2023 9:20 AM EDT Office Visit Family Practice [facility] [place] [address] [place] [address] Esperanza Jeffery DO [address] [place] [address] 01/28/2024 11:00 AM EDT Office Visit Otolaryngology/Hea d & Neck/Facial Plastic Surgery [address] [place] [address] Tyrone Tenorio MD [address] [place] [address] 03/03/2024 11:00 AM EDT Office Visit Rheumatology [place] [address] [email or web address] [address] Avinash Rasmussen MD [facility] [place] [address] Pending Results Name Type Priority Associated Diagnoses Date /Time PT INR Lab Routine History of malignant neoplasm of upper lobe bronchus or lung 09/18/2023 1:17 PM EDT Scheduled Procedures Name Priority Associated [...] 05/12/2023 023, 02/05/2021, 01/06/2020, Additional history exists Depression Screening 11/01/2023 10/31/2022 GFR 03/19/2024 09/17/2023, 08/02, 05/11/2023, Additional history exists CKD HGB USE SMARTSET 36885 09/16/202409/16, 09/17/2023, 08/20/2023, Additional history exists CKD PHOS USE SMARTSET 45201 09/16/2024 09/17/2023, 07/28/2022, 06/24/2021, Additional history exists DTaP,Tdap,and Td Vaccines (2 - Td or Tdap) 04/26/2025 04/26/2015, 04/18/2010, 12/03/1999 DXA Scan 05/11/2025 05/11/2023, 10/2020, 02/14/2019, Additional history exists Pneumococcal Vaccine: 65+ Years Completed 08/22/2014, 04/05/2010, 05/19/2001 *BISPHONATE OR OTHER ACCEPTABLE MEDICATION NEEDED FOR OSTEOPOROSIS (REFER TO SMARTSET #1146) Addressed 02/05/2015 (Course Completed) Overridden with the intention of not completing the topic Zoster Vaccines Completed 08/09/2019, 11/2019, 05/24/2008 Diabetic Eye Exam Discontinued 08/09/2021, , 02/10/2018, Additional history exists Diabetic Foot Exam Discontinued 10/28/2021, 02/23/2020 Influenza Vaccine (FLU shot) Completed 01/20/2023, 01/20/2022, 01/18/2021, Additional history exists COVID-19 Vaccine Completed 04/07/2023, , 08/26/2021, Additional history exists VITAMIN D LEVEL ONCE IN A LIFETIME-USE SMARTSET# 05350 Completed 05/11/2023, 07/28/2022, 06/24/2021, Additional history exists [...] this encounter Medical Devices Implanted Type Area Traffic Expert Device Identifier Shelf Expiration Date Model / Serial / Lot 7fr X 24cm Bard Inlay [place] Ureteral Stent Implanted:Qty : 1 on 04/04/2014 by Sawyer Parson MD at OR [facility] Left: Ureter INACTIVE CR BARD INC 10/01/2018 [id number] / / [id number] Port Power Mri W/8fr Cath - [id number] Implanted:Qty : 1 on 05/23/2015 by Nay Hernandez MD at OR [facility] Right: Subclavian CR BARD : PERIPHERAL VASCULAR 08/29/2016 [id number] / / [id number] documented as of this encounter Visit Diagnoses Diagnosis History of malignant neoplasm of upper lobe bronchus or lung Personal history of malignant neoplasm of bronchus and lung Personal history of malignant neoplasm of breast 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 Full Code 04/16/2015 9:26 AM 04/20/2015 3:49 PM Thi s order reflects the patients wishes and were consensually agreed upon. Full Code 04/04/2014 10:29 AM 04/04/2014 3:26 PM This order reflects the patients wishes and were consensually agreed upon. Full Code 04/04/2014 8:06 AM 04/04/2014 10:29 AM This order reflects the patients wishes and were consensually agreed upon. Care Teams Mail Carrier And Clerk Relationship Specialty Start Date End Date Hank Ivey DO [address] [place] [address] PCP - General Family Medicine 10/07/16 documented as of this encounter
--- OUTSIDE RECORDS SUMMARY | 2023-09-27 13:10 | External Medical Summary ---
Author Name Unknown Address Unknown Organization K09[facility] [place] [address] Laboratory Report Ordering Provider Test Date Status FROILAN VENEGAS 09/21/2023 09:26:10 Final Observation Date Value Abnormality Reference (Units ) Status SYNC LEUKOCYTES IN BLOOD BY AUTOMATED COUNT 09/21/2023 09:26:10 13.12 Above high normal 4.00-10.80 (K/uL) Final Segs 09/21/2023 09:26:10 68.7 40.0-75.0 (%) Final Lymphs % 09/21/2023 09:26:10 19.2 18.0-42.0 (%) Final Monos 09/21/2023 09:26:10 8.2 1.0-11.0 (%) Final Eosinophils 09/21/2023 09:26:10 3.7 0.0-6.0 (%) Final Basos 09/21/2023 09:26:10 0.2 0.0-2.0 (%) Final Absolute Segs 09/21/2023 09:26:10 9.02 Above high normal 1.80-7.70 (K/uL) Final Lymphs, absolute 09/21/2023 09:26:10 2.52 1.00-4.80 (K/ul) Final Monos, Abs 09/21/2023 09:26:10 1.07 0.00-1.10 (K/uL) Final Eos, Abs 09/21/2023 09:26:10 0.48 0.00-0.70 (K/uL) Final Basos, Abs 09/21/2023 09:26:10 0.03 0.00-0.20 (K/uL) Final Performing Location [facility] [place] [address]
--- OUTSIDE RECORDS SUMMARY | 2023-09-27 13:10 | External Medical Summary ---
Author Name Unknown Address Unknown Organization K09[facility] [place] [address] Laboratory Report Ordering Provider Test Date Status FROILAN VENEGAS 09/21/2023 09:26:10 Final Observation Date Value Abnormality Reference (Units ) Status WBC, Total 09/21/2023 09:26:10 13.12 Above high normal 4 .00-10.80 (K/uL) Final RBC 09/21/2023 09:26:10 4.64 3.85-5.15 (M/uL) Final Hemoglobin 09/21/2023 09:26:10 14.0 12.0-15.3 (g/dL) Final HCT 09/21/2023 09:26:10 42.8 36.0-45.2 (%) Final MCV 09/21/2023 09:26:10 92.2 81.5-97.5 (fL) Final MCH 09/21/2023 09:26:10 30.2 27.0-34.0 (pg) Final MCHC 09/21/2023 09:26:10 32.7 32.0-36.0 (g/dL) Final RDW 09/21/2023 09:26:10 14.8 11.5-15.5 (%) Final Platelets 09/21/2023 09:26:10 278 140-400 (K /uL) Final MPV 09/21/2023 09:26:10 10.1 6.6-11.1 ( fL) Final Performing Location [facility] [place] [address]
--- OUTSIDE RECORDS SUMMARY | 2023-09-27 13:10 | External Medical Summary | Summary of Care ---
Author Name Unknown Organization [facility] Address [address] [place] [address] Phone [phone] Care Team Providers Care Actuarial Intern Name Role Phone Hank Ivey Primary Care Provider Reason for Visit * Reason Comments Medication Management Encounter Details Date Type Department Care Team ([facility] Contact Info) Description 09/21/2023 1:00 PM EDT Pharmacy Pharmacy Hematology Oncology [facility] [address] [place] [address] [facility] Clinic Hem/Onc [address] [place] [address] Multiple lung nodules* Allergies Active Allergy Reactions Criticality Noted Date Comments [place] Oil 02/27/2021 Other reaction(s): ANAPHYLACTIC Ciprofloxacin Rash [...] Recommended genetic testing for her 2 sons. Eylssa Maldonado, MS 11/12/2016, 2:08 PM History of [...] mRNA, LNP-s, No Pre serve, 2-Dose Series (Giferent) 08/26/2021,03/29/2021,07/28/2020,07/02 COVID-19, MRNA-LNP, 23-24, P F, 30 MCG/0.3 mL, 12 YRS AND ABOVE, IM (Online Agility-Comirnat) 04/07/2023 Covid-19, Mrna, Lnp-s, Pf, B ivalent, [...] of this encounter Progress Notes * Inge Angulo, [facility] - 09/21/2023 8:31 AM EDT MEDICATION THERAPY MANAGEMENT OSIMERTINIB INITIAL INTAKE NOTE Dianne Aguayo [phone] Patient Phone Numbers Communication: Chart review Treatment: Medication: osimertinib (Tagrisso) Indication/Staging/Diagnosis Code: 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 Emi Linton Supportive Care Meds: Zometa Ondansetron Prochlorperazine Meclizine Prophylactic Meds: Hydrocortisone cream (in beacon plan if needed for EGFR-related rash) Relevant Chronic Medications: Category Medications Pertinent Notes Antihypertensives Lisinopril 40mg daily HCTZ 12.5mg daily Amlodipine 10mg daily Metoprolol ER 50mg daily Per nephrology and PCP Anticoagulation Apixaban 5mg BID Per ACC Review of therapy: Line of therapy: second Previous therapy: 03/2016: right upper lobe wedge resection 08/12/19-04/2022: osimertinib Reviewed dosage prescribed for appropriateness (based on indication, hepatic function,renal function, etc): no changes Are appropriate supportive care medications prescribed? Yes Are appropriate prophylactic medications prescribed? No, hydrocortisone uploaded in [employer] and willbe sent to pharmacy if needed for EGFR-related rash Have baseline labs/tests been obtained? Yes Has hepatitis B screening been completed? No, ordered Potential drug-drug drug-herbal, drug-food, drug-disease interactions: Yes, Colchicine / Osimertinib: P-glycoprotein/ABCB1 Inhibitors may increase the serum concentration of Colchicine. Colchicine distribution into certain tissues (e.g., brain) may also be increased Recommendation: For gout flare prophylaxis: if target dose would otherwise be 0.6 mg daily, change to 0.3 mg every other day, and if target dose would otherwise be 0.6 mg twice daily, change to 0.3 mg daily. Action: Will assess colchicine use and review DDI Atorvastatin / Osimertinib: Osimertinib may increase the serum concentration of BCRP/ABCG2 Substrates (Clinically Relevant with Inhibitors) Recommendation: Monitor for increased concentrations and effects of BCRP substrates if combined with osimertinib Action: Will service counselor pt on DDI and monitor for myopathies and rhabdomyolysis The Hematology/Oncology Oral Chemotherapy Clinic will assess medication compliance at each patient encounter Assessment and Plan: Eugene plan uploaded and sent to Dr Linda Linton for signature [facility] to follow up in 3 days to assess beacon plan signature and auth status Yes/no Date Action Taken Eugene plan entered? yes 09/21/23 Consent completed? yes 09/18/23 Intro/med rec completed? N/A Pt previously enrolled in [facility] Precert completed? Test claim completed? Financial assistance needed? Physician signature? Rx released? Education completed? Follow up: 3 days Inge Angulo, AydeD, BCOP Clinical Pharmacist, [facility] Oral Chemotherapy [facility] 09/21/2023, 9:00 AM Monitoring Parameters: Estimated CrCl Serum creatinine: 1.3 mg/dL (H) 09/17/23 1117 Estimated creatinine clearance: 34.8 mL/min (A) Hepatitis panel N/A - ordered test N/A - pt postmenopausal Suggested lab monitoring Suggested lab monitoring: baseline ECG and ECHO (can consider periodicallywhile on treatment based on risk factors or development of s/sx); test (in females of reproductive potential prior to therapy initiation); electrolytes periodically Date QTc 04/14/23 427 ms Date LVEF 05/21/23 60% Treatment Parameters Qtc > 500 ms Pertinent labs: Latest Reference Range & Units 09/17/23 11:17 WBC 4.00 - 10.80 K/uL 12.89 (H) RBC 3.85 - 5.15 M/uL 4.57 HGB 12.0 - 15.3 g/dL 13.7 HCT 36.0 - 45.2 % 41.6 MCV 81.5 - 97.5 fL 91.0 MCH 27.0 - 34.0 pg 30.0 MCHC 32.0 - 36.0 g/dL 32.9 RDW 11.5 - 15.5 % 14.6 PLT 140 - 400 K/uL 259 MPV 6.6 - 11.1 fL 10.3 CBC WITH WBC DIFFERENTIAL Rpt ! Absolute Neutrophils 1.80 - 7.70 K/uL 9.40 (H) Latest Reference Range & Units 09/17/23 11:17 Albumin 3.8 - 5.0 g/dL 4.2 AST 10 - 35 U/L 29 ALT 10 - 35 U/L 27 Alkaline Phosphatase 35 - 130 U/L 231 (H) Bilirubin, Total <=1.2 mg/dL 1.1 Ammonia 11 - 35 umol/L 29 Time Spent on Encounter: 16 - 20 minutes Encounter Group: Oncology Encounter Interventions Item Category: Oral Chemotherapy Osimertinib Problem/Rationale: Indication: Needs additional medication therapy - Untreated condition Eugene Plan Review: Initial Plan/upload Pharmacist Intervention(s): Drug Interaction Screen, Lab monitoring, Orders labs, and Referral review Magnitude of Intervention: Monitoring with direction (Level 1) documented in this encounter Plan of Treatment Upcoming Encounters Date Type Department Care Team (Latest Contact Info) Description 09/21/2023 9:30 AM EDT Laboratory Laboratory [place] [facility] Monique [address] [place] [phone] Coreen Stapleton [facility] [address] [place] [address] Arrived 09/22/2023 9:00 AM EDT Hospital Encounter OR GL, Operating Room, [facility] - 4th Floor [address] [place] [address] [facility], In And Out Surgery [address] [place] [address] 09/22/2023 9:00 AM EDT Appointment Radiology, [facility] [address] [place] [address] 09/22/2023 9:00 AM EDT - 09/22/2023 10:00 AM EDT Surgery OR [facility], Operating Room, [facility] - 4th Floor [address] [place] [address] [facility], In And Out Surgery [address] [place] [address] PRE / POST CARE 09/24/2023 1:30 PM EDT Pharmacy Pharmacy Hematology Oncology [facility] [place] [address] [place] [address] [facility], [facility] Clinic Hem/Onc [address] [place] [address] 09/29/2023 1:00 PM EDT Office Visit [facility] [address] [place] [address] Hank Ivey, DO [address] [place] [address] 09/30/2023 12:30 PM EDT Office Visit Gynecology/Oncolog y, [place] [address] [place] [address] Ama Ruano PA-C [address] [place] [address] 10/01/2023 8:30 AM EDT Appointment MRI, [address] [address] 10/01/2023 10:00 AM EDT Documentation Radiation Oncology, [place] [address] [address] [facility] [place] [address] Prakash Vyas MD [address] [place] [address] 10/06/2023 1:00 PM EDT Immunization/Injectio n Hematology/Oncolog y Treatment, [place] [address] [facility] [address] [place] [phone] Nurse, Med 4 [address] [facility] [place] [address] 10/21/2023 8:30 AM EDT Office Visit Cardiology, [facility] [address] [place] [address] Sarah Mohan CRNP [address] [place] [address] 10/27/2023 3:00 PM EDT Office Visit Nephrology, [facility] [address] [facility] [place] [address] ZemaitisShirley PA-C [address] [facility] [place] [address] 11/09/2023 10:00 AM EDT Nurse Only Ancillary [facility] [place] [address] [facility] [place] [address] Im, Nurse Annual Wellness [facility] [address] [facility] [place] [address] 11/20/2023 9:30 AM EDT Hospital Encounter ENDO [facility], Endoscopy Room [facility] [address] [place] [phone] Rogelio Yeh MD [address] [place] [address] 11/20/2023 9:30 AM EDT - 11/20/2023 10:00 AM EDT Surgery ENDO [facility], Endoscopy Room [facility] [address] [place] [address] Rogelio Yeh MD [address] [place] [address] COLONOSCOPY FLEXIBLE PROXIMAL DIAGNOSTIC 11/23/2023 9:20 AM EDT Office Visit Family Practice [facility] [address] [facility] [place] [address] Esperanza Jeffery DO [address] [facility] [place] [address] 01/28/2024 11:00 AM EDT Office Visit Otolaryngology/Hea d & Neck/Facial Plastic Surgery [address] [place] [address] Tyrone Tenorio MD [address] [place] [address] 03/03/2024 11:00 AM EDT Office Visit Rheumatology [facility] [address] [place], [place] [address] Avinash Rasmussen MD [address] [place], [place] [address] Scheduled Procedures Name Priority Associated Diagnoses Date/Ti [...] Additional history exists CKD HGB USE SMARTSET 97761 09/16/202409/16, 09/17/2023, 08/20/2023, Additional history exists CKD PHOS USE SMARTSET 43721 09/16/202409/01, 07/28/2022, 06/24/2021, Additional history exists DTaP,Tdap,and Td [...] D LEVEL ONCE IN A LIFETIME-USE SMARTSET# 14736 Completed 05/11/2023, 07/28/2022, 06/24/2021, Additional history exists [...] this encounter Medical Devices Implanted Type Area Prototyper Device Identifier Shelf Expiration Date Model / Serial / Lot 7fr X 24cm Bard Inlay [place] Ureteral Stent Implanted:Qty : 1 on 04/04/2014 by Sawyer Parson MD at OR [facility] Left: Ureter INACTIVE CR [employer] INC 10/01/2018 [id number] / / [id number] Port Power Mri W/8fr Cath - [id number] Implanted:Qty : 1 on 05/23/2015 by Nay Hernandez MD at OR [facility] Right: Subclavian CR BARD : PERIPHERAL VASCULAR 08/29/2016 [id number] / / [id number] documented as of this encounter Visit Diagnoses [...] and were consensually agreed upon. Care Teams Actuarial Intern Relationship Specialty Start Date End Date Hank Ivey DO [address] [place] [address] PCP - General Family Medicine 10/07/16 documented as of this encounter
--- OUTSIDE RECORDS SUMMARY | 2023-09-27 13:10 | External Medical Summary | Summary of Care ---
Author Name Unknown Organization [facility] Address [address] [place] [address] Phone [phone] Care Team Providers Care Interactive Media Designer Name Role Phone BladeHank goodman Primary Care Provider [phone] Reason for Visit * Reason Comments IV Therapy Hydration/ Zometa. * Episode Based Medications (Routine) - Authorized Specialty Diagnoses / Procedures Referred By Contac t Referred To Contact Diagnoses Hypercalcemia 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) 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) EGFR-related lung cancer (HCC) Procedures IN ZOLEDRONIC ACID 1MG Kush Linton MD [address] [place] [address] Anc Hem/Onc [address] [address] Referral ID Status Reason Start Date Expiration Date V isits Requested Visits Authorized [id number] Authorized 09/17/2023 05/03/[phone] Encounter Details Date Type Department Care Team (Latest Contact Info) Description 09/18/2023 10:30 AM EDT Hem/Onc Treatment Hematology/Oncology Treatment, [address] [phone] Daya, Chair 1 Hem Onc [address] [place] [address] Hypercalcemia*; 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); 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); EGFR-related lung cancer (HCC) Allergies Active Allergy Reactions Criticality Noted Date Comments [place] [employer] 02/27/2021 Other reaction(s): ANAPHYLACTIC Ciprofloxacin Rash [...] mRNA, LNP-s, No Pre serve, 2-Dose Series ([employer]) 08/26/2021,03/29/2021,07/28/2020,07/02 COVID-19, MRNA-LNP, 23-24, P F, 30 [...] Sign Reading Time Taken Comments Blood Pressure 119/73 09/18/2023 10:30 AM EDT Pulse 74 09/18/2023 10:30 AM EDT Temperature 36.6 C (97.9 F) 09/18/2023 10:30 AM E DT Respiratory Rate 18 09/18/2023 10:30 AM EDT Oxygen Saturation 92% 09/18/2023 10:30 AM EDT Inhaled Oxygen Concentration - - Weight - - Height - - Body Mass Index - - documented in this encounter Functional Status Functional [...] No 07/19/2019 documented as of this encounter Nursing Notes * Yokasta Alfaro RN - 09/18/2023 1:01 PM EDT Goals: Patient will remain free from injury. Possible barriers to meeting goals: Fall risk d/t ambulation with IV pole. Stability of the patient: Moderately unstable - medium risk of patient condition declining or worsening Summary regarding today's goals: Met: Patient remained free of injury. Patient tolerated infusion well. Discharged in stable condition. * Yokasta Alfaro RN - 09/18/2023 12:05 PM EDT Chair 9. Patient arrived for hydration/zometa with no acute complaints. VAD accessed. Safety and Risk for Injury Patient will remain free from injury. Ensure appropriate safety devices are available. Provide and maintain safe environment. documented in this encounter Plan of Treatment Upcoming Encounters Date Type Department Care Team (Latest Contact Info) Description 09/18/2023 1:30 PM EDT Laboratory Laboratory [facility] [place] [address] [place] [phone] Park, Lab Scene [address] [place] [address] History of malignant neoplasm of upper lobe bronchus or lung 09/21/2023 10:30 AM EDT Immunization/Injectio n Hematology/Oncolog y Treatment, [place] [address] [place] [phone] Nurse, Med 200 [facility] [place] [address] 09/21/2023 1:00 PM EDT Pharmacy Pharmacy Hematology Oncology [facility], [place] [address] [place] [address] [facility], [facility] Hem/Onc [address] [place] [address] 09/22/2023 9:00 AM EDT Hospital Encounter OR GL, Operating Room, [facility] - 4th Floor [address] [place] [address] [facility], In And Out Surgery 400 [place] [address] 09/22/2023 9:00 AM EDT Appointment Radiology, [facility] [address] [facility] [place] [address] 09/22/2023 9:00 AM EDT - 09/22/2023 10:00 AM EDT Surgery OR [facility], Operating Room, [facility] - 4th Floor [address] [place] [address] [facility], In And Out Surgery 400 [place] [address] PRE / POST CARE 09/29/2023 1:00 PM EDT Office Visit [facility] [address] [facility] [place] [address] Hank Ivey, DO 200 [facility] [place] [address] 09/30/2023 12:30 PM EDT Office Visit Gynecology/Oncolog y, [place] [address] [place] [address] Ama Ruano PA-C [address] [place] [address] 10/01/2023 8:30 AM EDT Appointment MRI, [place] [address] [place] [address] 10/01/2023 10:00 AM EDT Documentation Radiation Oncology, [address] [phone] Prakash Vyas MD [address] [place] [address] 10/06/2023 1:00 PM EDT Immunization/Injectio n Hematology/Oncolog y Treatment, [place] [address] [place] [phone] Nurse, Med 4 200 [facility] [place] [address] 10/21/2023 8:30 AM EDT Office Visit Cardiology, [facility] [address] [place] [address] Sarah Mohan CRNP [address] [place] [address] 10/27/2023 3:00 PM EDT Office Visit Nephrology, [facility] 200 [facility] [place] [address] ZemaitisShirley PA-C 200 [facility] [place] [address] 11/09/2023 10:00 AM EDT Nurse Only Ancillary [facility] [place] [address] [place] [address] Im, Nurse Annual Wellness [facility] 200 [facility] [place] [address] 11/20/2023 9:30 AM EDT Hospital Encounter ENDO [facility], Endoscopy Room [facility] [address] [place] [phone] Rogelio Yeh MD [address] [place] [address] 11/20/2023 9:30 AM EDT - 11/20/2023 10:00 AM EDT Surgery ENDO [facility], Endoscopy Room [facility] [address] [place] [address] Rogelio Yeh MD [address] [place] [address] COLONOSCOPY FLEXIBLE PROXIMAL DIAGNOSTIC 11/23/2023 9:20 AM EDT Office Visit Family Practice [facility] [address] [facility] [place] [address] Esperanza Jeffery DO 200 [facility] [place] [address] 01/28/2024 11:00 AM EDT Office Visit Otolaryngology/Hea d & Neck/Facial Plastic Surgery [address] [place] [address] Tyrone Tenorio MD [address] [place] [address] 03/03/2024 11:00 AM EDT Office Visit Rheumatology [facility] [address] [place] [address] Avinash Rasmussen MD [address] [employer] [place], [place] [address] Scheduled Procedures Name Priority Associated Diagnoses Date/Ti [...] Additional history exists CKD HGB USE SMARTSET 70973 09/16/202409/16, 09/17/2023, 08/20/2023, Additional history exists CKD PHOS USE SMARTSET 32780 09/16/2024 09/17/2023, 07/28/2022, 06/24/2021, Additional history exists [...] D LEVEL ONCE IN A LIFETIME-USE SMARTSET# 72127 Completed 05/11/2023, 07/28/2022, 06/24/2021, Additional history exists [...] this encounter Medical Devices Implanted Type Area Family Resource Management Specialist Device Identifier Shelf Expiration Date Model / Serial / Lot 7fr X 24cm Bard Inlay [place] Ureteral Stent Implanted:Qty : 1 on 04/04/2014 by Sawyer Parson MD at OR [facility] Left: Ureter INACTIVE [employer] 10/01/2018 [id number] / / [id number] Port Power Mri W/8fr Cath - [id number] Implanted:Qty : 1 on 05/23/2015 by Nay Hernandez MD at OR [facility] Right: Subclavian CR BARD : PERIPHERAL VASCULAR 08/29/2016 [id number] / / [id number] documented as of this encounter Visit Diagnoses Diagnosis Hypercalcemia- Primary 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) Secondary malignant neoplasm of bone and bone marrow 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) Secondary malignant neoplasm of liver EGFR-related lung cancer (HCC) History of malignant [...] of unspecified site documented in this encounter Administered Medications Inactive Administered Medications - up to 3 most recent administrations Medication Order MAR Action Action Date Dose Rate Site hEParin 100 UNIT/ML Lock Flush inj 500 Units 500 Units (5 mL), IV Lock, PRN Other, IV Flush, Starting on Thu09/18/23 at 1033, Until Thu09/18/23 at 1317, For 24 hours, Do not flush if lock, PICC, or central line not in place; IV infusing or unable to flush. Given 09/18/2023 12:40 PM EDT 500 Units NSS infusion FOR HYDRATION Intravenous, at 500 mL/hr Administer over 2 Hours, ONCE, 1 dose, On Thu09/18/23 at 1115 Start Infusion 09/18/2023 10:44 AM EDT 1,000 mL 500 mL/hr NSS infusion 500 mL, Intravenous, at 50 mL/hr, CONTINUOUS, Starting on Thu09/18/23 at 1145, Until Thu09/18/23 at 1317 Start Infusion 09/18/2023 10:44 AM EDT 500 mL 50 mL/hr sodium chloride 0.9 % flush central line 10 mL 10 mL, IV Push, PRN Other, IV Flush, Starting on Thu09/18/23 at 1033, Until Thu09/18/23 at 1317, For 24 hours, Do not flush if lock, PICC, or central line not in place; IV infusing or unable to flush. Given 09/18/2023 12:40 PM EDT 10 mL Zoledronic Acid (Zometa) 4 mg in 100 mL PREMIX ivpb 4 mg, IV Piggyback, ONCE, 1 dose, On Thu09/18/23 at 1145 Start Infusion 09/18/2023 10:44 AM EDT 4 mg 400 mL/hr documented in this encounter Advance Directives Latest [...] and were consensually agreed upon. Care Teams Interactive Media Designer Relationship Specialty Start Date End Date Hank Ivey DO [address] [place] [address] PCP - General Family Medicine 10/07/16 documented as of this encounter
--- OUTSIDE RECORDS SUMMARY | 2023-09-27 13:10 | External Medical Summary | Summary of Care ---
Author Name Unknown Organization [facility] Address [address] [place] [address] Phone [phone] Care Team Providers Care Microwave Engineer Name Role Phone BladeHank goodman Primary Care Provider Encounter Details Date Type Department Care Team ([facility] Contact Info) Description 09/19/2023 Orders Only PATIENT PORTAL DO NOT DELETE THIS DEPT USED BY [place] [id number] Allergies Active Allergy Reactions Criticality Noted Date Comments [place] [employer] 02/27/2021 Other reaction(s): ANAPHYLACTIC Ciprofloxacin Rash [...] 07/06/2018 Other reaction(s): GI SYMPTOMS Oxycodone-Acetaminophen Nausea/vomiting 09/16/2 009 Paclitaxel Anaphylaxis High 06/14/2015 Other reaction(s): ANAPHYLACTIC Tramadol Nausea/vomiting Low 02/05/2015 nausea Other reaction(s): GI SYMPTOMS documented as of this encounter (statuses as of 09/19/2023) Medications Medication Sig Dispensed Refills Start Date [...] as of this encounter (statuses as of 09/19/2023) Active Problems Problem Noted Date Diagnosed Date [...] as of this encounter (statuses as of 09/19/2023) Resolved Problems Problem Noted Date Diagnosed Date [...] as of this encounter (statuses as of 09/19/2023) Immunizations Name Administration Dates Next Due COVID-19 mRNA, LNP-s, No Pre serve, 2-Dose Series ([employer]) 08/26/2021,03/29/2021,07/28/2020,07/02 COVID-19, MRNA-LNP, 23-24, P F, 30 MCG/0.3 mL, 12 YRS AND ABOVE, IM ([facility] 04/07/2023 Covid-19, Mrna, Lnp-s, Pf, B ivalent, 30 Mcg, IM, 12 yrs and above ([employer]) 02/14/2022 Pneumococcal Conjugate Vacc, 13 Valent (Prevnar) [...] 1:00 PM EDT Pharmacy Pharmacy Hematology Oncology [facility] [address] [place] [address] [facility] Hem/Onc [address] [place] [address] 09/22/2023 9:00 AM EDT Hospital Encounter OR [facility], Operating Room, [facility] - 4th Floor [address] [place] [address] [facility], In And Out Surgery [address] [place] [address] 09/22/2023 9:00 AM EDT Appointment Radiology, [facility] [address] [place] [address] 09/22/2023 9:00 AM EDT - 09/22/2023 10:00 AM EDT Surgery OR [facility], Operating Room, [facility] - 4th Floor [address] [place] [address] [facility], In And Out Surgery 400 [facility] [place] [address] PRE / POST CARE 09/29/2023 1:00 PM EDT Office Visit Family Practice [facility] [address] [facility] [place] [address] Hank Ivey DO [address] [facility] [place] [address] 09/30/2023 12:30 PM EDT Office Visit Gynecology/Oncolog y, [place] [address] [place] [address] Ama Ruano PA-C [address] [place] [address] 10/01/2023 8:30 AM EDT Appointment MRI, [place] [address] [place], [place] [address] 10/01/2023 10:00 AM EDT Documentation Radiation Oncology, [place] [address] [place] [address] Prakash Vyas MD [address] [place] [address] 10/06/2023 1:00 PM EDT Immunization/Injectio n Hematology/Oncolog y Treatment, [place] 200 [facility] [place] [phone] Nurse, Med 4 [address] [place] [address] 10/21/2023 8:30 AM EDT Office Visit Cardiology, [facility] [address] [place] [address] Sarah Mohan CRNP [address] [place] [address] 10/27/2023 3:00 PM EDT Office Visit Nephrology, [facility] [address] [place] [address] Shirley Alicea PA-C [address] [place] [address] 11/09/2023 10:00 AM EDT Nurse Only Ancillary [facility] [place] [address] [place] [address] Im, Nurse Annual Wellness [facility] [address] [facility] [place] [address] 11/20/2023 9:30 AM EDT Hospital Encounter ENDO [facility], Endoscopy Room [facility] [address] [place] [address] Rogelio Yeh MD [address] [place] [address] 11/20/2023 9:30 AM EDT - 11/20/2023 10:00 AM EDT Surgery ENDO [facility], Endoscopy Room [facility] [address] [place] [phone] Rogelio Yeh MD [address] [place] [address] COLONOSCOPY FLEXIBLE PROXIMAL DIAGNOSTIC 11/23/2023 9:20 AM EDT Office Visit Family Practice [facility] [place] [address] [place] [address] Esperanza Jeffery DO 200 [facility] [place] [address] 01/28/2024 11:00 AM EDT Office Visit Otolaryngology/Hea d & Neck/Facial Plastic Surgery [address] [place] [address] Tyrone Tenorio MD [address] [place] [address] 03/03/2024 11:00 AM EDT Office Visit Rheumatology [place] [address] [facility] [place] [address] Avinash Rasmussen MD [address] [place] [address] Scheduled Procedures Name Priority Associated Diagnoses Date/Ti [...] Additional history exists CKD HGB USE SMARTSET 56882 09/16/202409/16, 09/17/2023, 08/20/2023, Additional history exists CKD PHOS USE SMARTSET 97779 09/16/2024 09/17/2023, 07/28/2022, 06/24/2021, Additional history exists [...] D LEVEL ONCE IN A LIFETIME-USE SMARTSET# 63308 Completed 05/11/2023, 07/28/2022, 06/24/2021, Additional history exists [...] this encounter Medical Devices Implanted Type Area Signal Maintenance Technician Device Identifier Shelf Expiration Date Model / Serial / Lot 7fr X 24cm Bard Inlay [place] Ureteral Stent Implanted:Qty : 1 on 04/04/2014 by Sawyer Parson MD at OR [facility] Left: Ureter INACTIVE [employer] 10/01/2018 [id number] / / [id number] Port Power Mri W/8fr Cath - [id number] Implanted:Qty : 1 on 05/23/2015 by Nay Hernandez MD at OR [facility] Right: Subclavian CR [employer]ARD : PERIPHERAL VASCULAR 08/29/2016 [id number] / / [id number] documented as of this encounter Advance Directives Latest Code Status [...] and were consensually agreed upon. Care Teams Microwave Engineer Relationship Specialty Start Date End Date Hank Ivey DO [facility] [place] [address] PCP - General Family Medicine 10/07/16 documented as of this encounter
--- OUTSIDE RECORDS SUMMARY | 2023-09-27 13:10 | External Medical Summary ---
Author Name Unknown Address Unknown Organization K09:[facility] [address] [place] [address] Laboratory Report Ordering Provider Test Date Status FROILAN VENEGAS 09/21/2023 09:26:10 Final Observation Date Value Abnormality Reference (Units ) Status BUN 09/21/2023 09:26:10 18 6-20 (mg/dL) Final Creatinine 09/21/2023 09:26:10 1.1 Above high normal 0.5-1.0 (mg/dL) Final Glomerular filtration rate/1.73 sq M.predicted [Volume Rate/Area] in Serum, Plasma or Blood by Creatinine-based formula (CKD-EPI) 09/21/2023 09:26:10 49 Below low normal >=60 (mL/min) Final eGFR is calculated based on the CKD-EPI 2020 equation Sodium 09/21/2023 09:26:10 142 135-146 (m mol/L) Final Potassium 09/21/2023 09:26:10 3.9 3.5-5.1 (m mol/L) Final Cl 09/21/2023 09:26:10 104 98-107 (mm ol/L) Final CO2 09/21/2023 09:26:10 26 22-32 (mmo l/L) Final Anion gap 09/21/2023 09:26:10 12 7-15 (mmol /L) Final Glucose 09/21/2023 09:26:10 103 70-120 (mg /dL) Final Albumin 09/21/2023 09:26:10 3.9 3.8-5.0 (g /dL) Final AST (Aspartate aminotransferase) 09/21/2023 09:26:10 30 10-35 (U/L) Fin al Alk Phos 09/21/2023 09:26:10 248 Above high normal 35 -130 (U/L) Final Bilirubin, Total 09/21/2023 09:26:10 0.9 <=1 .2 (mg/dL) Final Calcium 09/21/2023 09:26:10 9.3 8.4-10.2 ( mg/dL) Final Protein 09/21/2023 09:26:10 6.4 6.0-8.3 (g /dL) Final ALT (Alanine aminotransferase) 09/21/2023 09:26:10 23 10-35 (U/L) Ismael sue Performing Location [facility] [address] [place] [address]
--- OUTSIDE RECORDS SUMMARY | 2023-09-27 13:10 | External Medical Summary | Summary of Care ---
Author Name Unknown Organization [facility] Address [address] [place] [address] Phone [phone] Care Team Providers Care Hybrid Derivatives Trader Name Role Phone Hank Ivey Primary Care Provider Reason for Visit * Reason Comments Outpatient Testing Encounter Details Date Type Department Care Team ([facility] st Contact Info) Description 09/21/2023 9:30 AM EDT Laboratory Laboratory [facility] [address] [place] [phone] [place], Lab Scenery [address] [facility] [place] [address] 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); 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); EGFR-related lung cancer (HCC) Allergies Active Allergy Reactions Criticality Noted Date Comments [place] Oil 02/27/2021 Other reaction(s): ANAPHYLACTIC Ciprofloxacin Rash [...] mRNA, LNP-s, No Pre serve, 2-Dose Series ([employer]) 08/26/2021,03/29/2021,07/28/2020,07/02 COVID-19, MRNA-LNP, 23-24, P F, 30 MCG/0.3 mL, 12 YRS AND ABOVE, IM ([employer]) 04/07/2023 Covid-19, Mrna, Lnp-s, Pf, B ivalent, 30 Mcg, IM, 12 yrs and above ([place]) 02/14/2022 Pneumococcal Conjugate Vacc, 13 Valent (Prevnar) [...] 4:13 PM EDT Sexual Orientation Straight 10/26/2019 4 :13 PM EDT Job Start Date Occupation Industry [...] 1:00 PM EDT Pharmacy Pharmacy Hematology Oncology [address] [address] [facility] Hem/Onc [address] [place] [address] Multiple lung nodules* 09/22/2023 9:00 AM EDT Hospital Encounter OR [facility], Operating Room, [facility] - 4th Floor [address] [place] [address] [facility], In And Out Surgery [address] [place] [address] 09/22/2023 9:00 AM EDT Appointment Radiology, [facility] [address] [place] [address] 09/22/2023 9:00 AM EDT - 09/22/2023 10:00 AM EDT Surgery OR [facility], Operating Room, [facility] - 4th Floor [address] [place] [address] [facility], In And Out Surgery [address] [place] [address] PRE / POST CARE 09/24/2023 1:30 PM EDT Pharmacy Pharmacy Hematology Oncology [facility], [place] [address] [place] [address] [facility] Hem/Onc [address] [place] [address] 09/29/2023 1:00 PM EDT Office Visit Family Practice [facility] [place] 200 [facility] [place] [address] Hank Ivey, [address] COUNTS INCLUDE 234 BEDS AT THE [facility] [place] [address] 09/30/2023 12:30 PM EDT Office Visit Gynecology/Oncolog y, [place] [address] [place] [address] Ama Ruano PA-C [address] [place] [address] 10/01/2023 8:30 AM EDT Appointment MRI, [place] [address] [place] [address] 10/01/2023 10:00 AM EDT Documentation Radiation Oncology, [place] [address] [place] [address] Prakash Vyas MD [address] [place] [address] 10/06/2023 1:00 PM EDT Immunization/Injectio n Hematology/Oncolog y Treatment, [place] [address] [facility] [place] [address] Nurse, Med 200 [facility] [place] [address] 10/21/2023 8:30 AM EDT Office Visit Cardiology, [facility] [address] [place] [address] Sarah Mohan CRNP [address] [place] [address] 10/27/2023 3:00 PM EDT Office Visit Nephrology, [facility] [address] [place] [address] ZeShirley suazo PA-C [address] [place] [address] 11/09/2023 10:00 AM EDT Nurse Only Ancillary [facility] [place] [address] [place] [address] Im, Nurse Annual Wellness [facility] [address] [facility] [place] [address] 11/20/2023 9:30 AM EDT Hospital Encounter ENDO [facility], Endoscopy Room [facility] [address] [place] [phone] Rogelio Yeh MD [address] [place] [address] 11/20/2023 9:30 AM EDT - 11/20/2023 10:00 AM EDT Surgery ENDO [facility], Endoscopy Room [facility] [address] [place] [phone] Rogelio Yeh MD [address] [place] [address] COLONOSCOPY FLEXIBLE PROXIMAL DIAGNOSTIC 11/23/2023 9:20 AM EDT Office Visit Family Practice [facility] [place] [address] [place] [address] Esperanza Jeffery DO [address] [place] [address] 01/28/2024 11:00 AM EDT Office Visit Otolaryngology/Hea d & Neck/Facial Plastic Surgery [address] [place] [address] Tyrone Tenorio MD [address] [place] [address] 03/03/2024 11:00 AM EDT Office Visit Rheumatology [place] [id number] [place] [address] Avinash Rasmussen MD [facility] [place] [address] Pending Results Name Type Priority Associated Diagnoses Date /Time COMPREHENSIVE METABOLIC PANEL Lab STAT 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) 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) EGFR-related lung cancer (HCC) 09/21/2023 9:26 AM EDT HEPATITIS B SURFACE ANTIBODY Lab STAT EGFR-related lung cancer (HCC) 09/21/2023 9:26 AM EDT HEPATITIS B SURFACE ANTIGEN Lab STAT EGFR-related lung cancer (HCC) 09/21/2023 9:26 AM EDT HEPATITIS B CORE ANTIBODIES IGG AND IGM Lab STAT EGFR-related lung cancer (HCC) 09/21/2023 9:26 AM EDT Scheduled Procedures Name Priority Associated Diagnoses [...] 09/17/2023, 08/02, 05/11/2023, Additional history exists CKD PHOS USE SMARTSET 17927 09/16/202409/01, 07/28/2022, 06/24/2021, Additional history exists CKD HGB USE SMARTSET 17671 09/20/202409/20, 09/21/2023, 09/17/2023, Additional history exists DTaP,Tdap,and [...] D LEVEL ONCE IN A LIFETIME-USE SMARTSET# 22758 Completed 05/11/2023, 07/28/2022, 06/24/2021, Additional history exists [...] this encounter Medical Devices Implanted Type Area Wood Engraver Device Identifier Shelf Expiration Date Model / Serial / Lot 7fr X 24cm Bard Inlay [place] Ureteral Stent Implanted:Qty : 1 on 04/04/2014 by Sawyer Parson MD at OR [facility] Left: Ureter INACTIVE CR BARD INC 10/01/2018 [id number] / / [id number] Port Power Mri W/8fr Cath - [id number] Implanted:Qty : 1 on 05/23/2015 by Nay Hernandez MD at OR [facility] Right: Subclavian CR BARD : PERIPHERAL VASCULAR 08/29/2016 [id number] / / [id number] documented as of this encounter Procedures Procedure Name Priority Date/Time Associated Diagnosis Comments DIFFERENTIAL, AUTOMATED STAT 09/21/2023 9:26 AM EDT 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) 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) EGFR-related lung cancer (HCC) CBC STAT 09/21/2023 9:26 AM EDT 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) 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) EGFR-related lung cancer (HCC) CBC STAT 09/21/2023 9:26 AM EDT 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) 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) EGFR-related lung cancer (HCC) documented in this encounter Results * (ABNORMAL) DIFFERENTIAL, AUTOMATED (09/21/2023 9:26 AM EDT) WBC 13.12(H) 4.00 - 10.80 K/uL 09/21/2023 9:36 AM EDT [facility] [place]02 Neutrophils % 68.7 40.0 - 75.0 % 09/21/2023 9:36 AM EDT [facility] [place]02 Lymphocytes % 19.2 18.0 - 42.0 % 09/21/2023 9:36 AM EDT [facility] [place] 56-02 Monocytes % 8.2 1.0 - 11.0 % 09/21/2023 9:36 AM EDT [facility] [place] 56-02 Eosinophils % 3.7 0.0 - 6.0 % 09/21/2023 9:36 AM EDT [facility] [place] 56-02 Basophils % 0.2 0.0 - 2.0 % 09/21/2023 9:36 AM EDT [facility] [place] 56-02 Absolute Neutrophils 9.02(H) 1.80 - 7.70 K/uL 09/21/2023 9:36 AM EDT LABORATORY COUNTS INCLUDE 234 BEDS AT THE [facility] [place] 56-02 Absolute Lymphocytes 2.52 1.00 - 4.80 K/ul 09/21/2023 9:36 AM EDT LABORATORY COUNTS INCLUDE 234 BEDS AT THE [facility] [place] 56-02 Absolute Monocytes 1.07 0.00 - 1.10 K/uL 09/21/2023 9:36 AM EDT [facility] [place] 56-02 Absolute Eosinophils 0.48 0.00 - 0.70 K/uL 09/21/2023 9:36 AM EDT [facility] Absolute Basophils 0.03 0.00 - 0.20 K/uL 09/21/2023 9:36 AM EDT [facility] Blood Venous blood specimen / Unknown Venipuncture / Unknown 09/21/2023 9:26 AM EDT 09/21/2023 9:26 AM EDT Kush Linton MD LAB BLOOD ORDERABLES [facility] [address] [place], [place] [address] * (ABNORMAL) CBC (09/21/2023 9:26 AM EDT) WBC 13.12(H) 4.00 - 10.80 K/uL 09/21/2023 9:36 AM EDT [facility] RBC 4.64 3.85 - 5.15 M/uL 09/21/2023 9:36 AM EDT [facility] HGB 14.0 12.0 - 15.3 g/dL 09/21/2023 9:36 AM EDT [facility] HCT 42.8 36.0 - 45.2 % 09/21/2023 9:36 AM EDT [facility] MCV 92.2 81.5 - 97.5 fL 09/21/2023 9:36 AM EDT [facility] MCH 30.2 27.0 - 34.0 pg 09/21/2023 9:36 AM EDT [facility] MCHC 32.7 32.0 - 36.0 g/dL 09/21/2023 9:36 AM EDT [facility] RDW 14.8 11.5 - 15.5 % 09/21/2023 9:36 AM EDT [facility] PLT 278 140 - 400 K/uL 09/21/2023 9:36 AM EDT [facility] MPV 10.1 6.6 - 11.1 fL 09/21/2023 9:36 AM EDT [facility] 56- Blood Venous blood specimen / Unknown Venipuncture / Unknown 09/21/2023 9:26 AM EDT 09/21/2023 9:26 AM EDT Kush Linton MD LAB BLOOD ORDERABLES [facility] 56- 200 [place] [address] documented in this encounter Visit Diagnoses Diagnosis Multiple lung nodules- Primary Other nonspecific abnormal finding of lung field 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) Secondary malignant neoplasm of bone and bone marrow 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) Secondary malignant neoplasm of liver EGFR-related lung cancer (HCC) Personal history of malignant neoplasm of [...] and were consensually agreed upon. Care Teams Hybrid Derivatives Trader Relationship Specialty Start Date End Date [facility] DO [facility] [address] PCP - General Family Medicine 10/07/16 documented as of this encounter
--- OUTSIDE RECORDS SUMMARY | 2023-09-27 13:10 | External Medical Summary ---
Author Name Unknown Address Unknown Organization K01:[facility] [place] [address] [place] [address] Laboratory Report Ordering Provider Test Date Status FROILAN VENEGAS 09/21/2023 09:26:10 Final Observation Date Value Abnormality Reference (Units) Status Hepatitis B virus surface Ab [Units/volume] in Serum or Plasma by Immunoassay 09/21/2023 09:26:10 <3.5 (mIU/mL) Final Hepatitis B virus surface Ab [Presence] in Serum by Immunoassay 09/21/2023 09:26:10 Negative Final HEPATITIS B SURFACE ANTIBODY, INTERPRETATION 09/21/2023 09:26:10 NOT immune to Hepatitis B Virus Final POSITIVE: >=11.5 mIU/mL
INDETERMINATE: 8.5-<11.5 mIU/mL
NEGATIVE: <8.5 mIU/mL Performing Location LABORATORY [facility] - [facility] [place] [address]
--- OUTSIDE RECORDS SUMMARY | 2023-09-27 13:10 | External Medical Summary | Summary of Care ---
Author Name Unknown Organization [facility] Address [address] [place] [address] Phone [phone] Care Team Providers Care Stone Gang Sawyer Name Role Phone Hank Ivey Primary Care Provider [phone] Reason for Visit * Reason Onset Date Comments Precert Future 09/18/2023 tagrisso Encounter Details Date Type Department Care Team ([facility] Contact Info) Description 09/18/2023 Telephone Hematology/Oncology Treatment, [place] [address] [place] [address] Kush Linton MD [address] [place] [address] Precert Future (tagrisso) Allergies Active Allergy Reactions Criticality Noted Date Comments [place] Oil 02/27/2021 Other reaction(s): ANAPHYLACTIC Ciprofloxacin Rash [...] dependence 08/02/2014 11/03/2018 Rotator cuff tear, left 08/02/2014/10/2017 Rotator cuff tear, right 08/02/2014 Calculus of [...] mRNA, LNP-s, No Pre serve, 2-Dose Series ([employer]) 08/26/2021,03/29/2021,07/28/2020,07/02 COVID-19, MRNA-LNP, 23-24, P F, 30 MCG/0.3 mL, 12 YRS AND ABOVE, IM ([employer]) 04/07/2023 Covid-19, Mrna, Lnp-s, Pf, B ivalent, [...] Order received for tagrisso. Order forwarded to [place]. Waiting for auth. Patient had signed consent [...] 1:00 PM EDT Pharmacy Pharmacy Hematology Oncology [address] [place] [address] [facility], [facility] Hem/Onc [address] [place] [address] 09/22/2023 9:00 AM EDT Hospital Encounter OR [facility], Operating Room, [facility] - 4th Floor [address] [place] [address] [facility], In And Out Surgery [address] [place] [address] 09/22/2023 9:00 AM EDT Appointment Radiology, [facility] 400 [facility] [place] [address] 09/22/2023 9:00 AM EDT - 09/22/2023 10:00 AM EDT Surgery OR [facility], Operating Room, [facility] - 4th Floor [address] [place] [address] [facility], In And Out Surgery [address] [place] [address] PRE / POST CARE 09/29/2023 1:00 PM EDT Office Visit [facility] 200 [place] [address] Hank Ivey, [address] [place] [address] 09/30/2023 12:30 PM EDT Office Visit Gynecology/Oncolog y, [place] [address] [place] [address] Ama Ruano PA-C [address] [place] [address] 10/01/2023 8:30 AM EDT Appointment MRI, [address] [address] 10/01/2023 10:00 AM EDT Documentation Radiation Oncology, [address] [address] Prakash Vyas MD [address] [place] [address] 10/06/2023 1:00 PM EDT Immunization/Injectio n Hematology/Oncolog y Treatment, [place] [facility] [address] Nurse, Med 200 [facility] [place] [address] 10/21/2023 8:30 AM EDT Office Visit Cardiology, [facility] [address] [place] [address] MarquesSarah mendes CRNP [address] [place] [address] 10/27/2023 3:00 PM EDT Office Visit Nephrology, [facility] [address] [facility] [place] [address] ZemaitisShirley PA-C [address] [facility] [place] [address] 11/09/2023 10:00 AM EDT Nurse Only Ancillary [facility] [address] [facility] [place] [address] Im, Nurse Annual Wellness [facility] [address] [facility] [place] [address] 11/20/2023 9:30 AM EDT Hospital Encounter ENDO [facility], Endoscopy Room [facility] [address] [place] [phone] Rogelio Yeh MD [address] [place] [address] 11/20/2023 9:30 AM EDT - 11/20/2023 10:00 AM EDT Surgery ENDO [facility], Endoscopy Room [facility] [address] [place] [phone] Rogelio Yeh MD [address] [place] [address] COLONOSCOPY FLEXIBLE PROXIMAL DIAGNOSTIC 11/23/2023 9:20 AM EDT Office Visit Family Practice [facility] 200 [facility] [place], [place] [address] Esperanza Jeffery DO 200 [facility] [place] [address] 01/28/2024 11:00 AM EDT Office Visit Otolaryngology/Hea d & Neck/Facial Plastic Surgery [address] [place] [address] Tyrone Tenorio MD [address] [place] [address] 03/03/2024 11:00 AM EDT Office Visit Rheumatology [place] [address] [place] [address] Avinash Rasmussen MD [facility] [address] [place] [address] Scheduled Orders Name Type Priority Associated Diagnoses [...] Additional history exists CKD HGB USE SMARTSET 08538 09/16/202409/16, 09/17/2023, 08/20/2023, Additional history exists CKD PHOS USE SMARTSET 56543 09/16/2024 09/17/2023, 07/28/2022, 06/24/2021, Additional history exists [...] D LEVEL ONCE IN A LIFETIME-USE SMARTSET# 98800 Completed 05/11/2023, 07/28/2022, 06/24/2021, Additional history exists [...] this encounter Medical Devices Implanted Type Area Coverstitch Machine Operator Device Identifier Shelf Expiration Date Model / Serial / Lot 7fr X 24cm Bard Inlay [place] Ureteral Stent Implanted:Qty : 1 on 04/04/2014 by Sawyer Parson MD at OR [facility] Left: Ureter INACTIVE CR BARD INC 10/01/2018 [id number] / / [id number] Port Power Mri W/8fr Cath - [id number] Implanted:Qty : 1 on 05/23/2015 by Nay Hernandez MD at OR [facility] Right: Subclavian CR BARD : PERIPHERAL VASCULAR 08/29/2016 [id number] / / [id number] documented as of this encounter Visit Diagnoses Diagnosis EGFR-related lung cancer (HCC)- Primary Personal history of malignant neoplasm of breast [...] and were consensually agreed upon. Care Teams Stone Gang Sawyer Relationship Specialty Start Date End Date Hank Ivey DO 200 [facility] [place] [address] PCP - General Family Medicine 10/07/16 documented as of this encounter
--- OUTSIDE RECORDS SUMMARY | 2023-09-27 13:10 | External Medical Summary | Summary of Care ---
Author Name Unknown Organization [facility] Address [address] [place] [address] Phone [phone] Care Team Providers Care Assistant Professor Of Communication Name Role Phone Hank Ivey Primary Care Provider [phone] Reason for Referral * Precert (Within 10 days (routine)) - Pending Review Specialty Diagnoses / Procedures Referred By Fred guidry Referred To Contact Cardiac Studies Diagnoses EGFR-related lung cancer (HCC) Procedures ECHO, COMPLETE (2D), TRANS-THORACIC Inge Angulo, [facility] 200 [facility] [place] [address] Referral ID Status Reason Start Date Expiration Date Visits Requested Visits Authorized [id number] Pending Review Precert 09/21/2023 4 4 Encounter Details Date Type Department Care Team ([facility] Contact Info) Description 09/21/2023 Orders Only Hematology/Oncology [address] [place] [address] [place] [address] Kush Linton MD 200 [facility] [place] [address] EGFR-related lung cancer (HCC)* Allergies Active Allergy Reactions Criticality Noted Date Comments [employer] Oil 02/27/2021 Other reaction(s): ANAPHYLACTIC Ciprofloxacin Rash [...] mRNA, LNP-s, No Pre serve, 2-Dose Series ([employer]) 08/26/2021,03/29/2021,07/28/2020,07/02 COVID-19, MRNA-LNP, 23-24, P F, 30 MCG/0.3 mL, 12 YRS AND ABOVE, IM ([employer]) 04/07/2023 Covid-19, Mrna, Lnp-s, Pf, B ivalent, 30 Mcg, IM, 12 yrs and above ([employer]) 02/14/2022 Pneumococcal Conjugate Vacc, 13 Valent (Prevnar) [...] EDT Laboratory [facility] [place] [address] [place] [phone] [place] [address] Arrived 09/21/2023 1:00 PM EDT Pharmacy Pharmacy Hematology Oncology [address] [phone] [facility] Hem/Onc [address] [place] [place] [address] Multiple lung nodules* 09/22/2023 9:00 AM EDT Hospital Encounter OR [place], Operating Room, [facility] - 4th Floor [address] [place] [address] [facility], In And Out Surgery [address] [place] [address] 09/22/2023 9:00 AM EDT Appointment Radiology, [facility] [address] [place] [address] 09/22/2023 9:00 AM EDT - 09/22/2023 10:00 AM EDT Surgery OR [facility], Operating Room, [facility] - 4th Floor [address] [place] [address] [facility], In And Out Surgery [address] [address] PRE / POST CARE 09/24/2023 1:30 PM EDT Pharmacy Pharmacy Hematology Oncology [facility], [place] [address] [place] [address] [facility], [facility] Hem/Onc [address] [place] [address] 09/29/2023 1:00 PM EDT Office Visit [facility] [place] 200 [facility] [place] [place] [address] Hank Ivey, DO 200 [facility] [place] [place] [address] 09/30/2023 12:30 PM EDT Office Visit Gynecology/Oncolog y, [place] 100 [address] [facility] [place] [address] Ama Ruano PA-C [address] [place] [facility] [place] [address] 10/01/2023 8:30 AM EDT Appointment MRI, [place] [address] [place] [address] 10/01/2023 10:00 AM EDT Documentation Radiation Oncology, [place] [address] [place] [address] Prakash Vyas MD [address] [place] [address] 10/06/2023 1:00 PM EDT Immunization/Injectio n Hematology/Oncolog y Treatment, [place] [address] [place] [phone] Nurse, Med 200 [facility] [place] [address] 10/21/2023 8:30 AM EDT Office Visit Cardiology, [facility] 132 [facility] [place] [address] Sarah Mohan CRNP [address] [facility] [address] 10/27/2023 3:00 PM EDT Office Visit Nephrology, [facility] 200 [facility] [place] [address] ZemaitisShirley PA-C 200 [facility] [place] [place] [address] 11/09/2023 10:00 AM EDT Nurse Only Ancillary [facility] [place] 200 [facility] [place] [address] Im, Nurse Annual Wellness [facility] 200 [facility] [place] [place] [address] 11/20/2023 9:30 AM EDT Hospital Encounter ENDO [facility], Endoscopy Room [facility] [address] [place] [phone] Rogelio Yeh MD [address] [place] [address] 11/20/2023 9:30 AM EDT - 11/20/2023 10:00 AM EDT Surgery ENDO [facility], Endoscopy Room [facility] [address] [place] [phone] Rogelio Yeh MD [address] [place] [address] COLONOSCOPY FLEXIBLE PROXIMAL DIAGNOSTIC 11/23/2023 9:20 AM EDT Office Visit [facility] [address] [place] [address] Esperanza Jeffery, [address] [place] [address] 01/28/2024 11:00 AM EDT Office Visit Otolaryngology/Hea d & Neck/Facial Plastic Surgery [address] [place] [address] Tyrone Tenorio MD [address] [place] [address] 03/03/2024 11:00 AM EDT Office Visit Rheumatology [facility] [address] [facility] [place] [address] Avinash Rasmussen MD 2520 [facility] [place], [place] [address] Scheduled Orders Name Type Priority Associated Diagnoses Orde r Schedule EKG EKG Routine EGFR-related lung cancer (HCC) Every 3 Months for 4 Occurrences starting 09/21/2023 until 09/20/2024 ECHO, COMPLETE (2D), TRANS-THORACIC Echocardiology Routine EGFR-related lung cancer (HCC) Every 3 Months for 4 Occurrences starting 09/21/2023 until 09/20/2024 Scheduled Procedures Name Priority Associated Diagnoses Date/Ti [...] Additional history exists CKD HGB USE SMARTSET 47512 09/16/202409/16, 09/17/2023, 08/20/2023, Additional history exists CKD PHOS USE SMARTSET 09316 09/16/202409/01, 07/28/2022, 06/24/2021, Additional history exists DTaP,Tdap,and [...] D LEVEL ONCE IN A LIFETIME-USE SMARTSET# 90227 Completed 05/11/2023, 07/28/2022, 06/24/2021, Additional history exists [...] this encounter Medical Devices Implanted Type Area Drilling Foreman Device Identifier Shelf Expiration Date Model / Serial / Lot 7fr X 24cm Bard Inlay [place] Ureteral Stent Implanted:Qty : 1 on 04/04/2014 by Sawyer Parson MD at OR [facility] Left: Ureter INACTIVE CR BARD INC 10/01/2018 [id number] / / [id number] Port Power Mri W/8fr Cath - [id number] Implanted:Qty : 1 on 05/23/2015 by Nay Hernandez MD at OR [facility] Right: Subclavian CR BARD : PERIPHERAL VASCULAR 08/29/2016 [id number] / / [id number] documented as of this encounter Visit Diagnoses Diagnosis Multiple lung nodules- Primary Other nonspecific abnormal finding of lung field EGFR-related lung cancer (HCC)- Primary Personal history [...] and were consensually agreed upon. Care Teams Assistant Professor Of Communication Relationship Specialty Start Date End Date Hank Ivey DO [address] [place] [address] PCP - General Family Medicine 10/07/16 documented as of this encounter
--- OUTSIDE RECORDS SUMMARY | 2023-09-27 13:10 | External Medical Summary ---
Author Name Unknown Address Unknown Organization [id number]:[facility]AT[facility] [place] - [address] [place] [address] Laboratory Report Ordering Provider Test Date Status FROILAN VENEGAS 09/21/2023 09:26:10 Final Observation Date Value Abnormality Reference (Units ) Status Hepatitis B virus core Ab [Presence] in Serum 09/21/2023 09:26:10 Negative Negative Final Performing Location LABORATORY [facility] [place] - [address] [place] [address]
--- OUTSIDE RECORDS SUMMARY | 2023-09-27 13:10 | External Medical Summary ---
Author Name Unknown Address Unknown Organization [id number]:[facility]ATORY [facility] - [address] [place] [address] Laboratory Report Ordering Provider Test Date Status FROILAN VENEGAS 09/21/2023 09:26:10 Final Observation Date Value Abnormality Reference (Units ) Status Hep B surface Ag 09/21/2023 09:26:10 Negative Neg ative Final Performing Location LABORATORY [facility] - [address] [place] [address]
--- OUTSIDE RECORDS SUMMARY | 2023-09-27 13:11 | External Medical Summary ---
Author Name Unknown Address Unknown Organization [id number]:[facility] [place] [address] Laboratory Report Ordering Provider Test Date Status FROILAN VENEGAS 09/17/2023 11:17:27 Final Observation Date Value Abnormality Reference (Units ) Status Phosphate 09/17/2023 11:17:27 3.6 2.5-4.8 (m g/dL) Final Performing Location [facility] [place] [address]
--- OUTSIDE RECORDS SUMMARY | 2023-09-27 13:11 | External Medical Summary | Summary of Care ---
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) Procedures IR BIOPSY Kush Linton MD [address] [facility] [place] [address] Referral ID Status Reason Start Date Expiration Date V isits Requested Visits Authorized [id number] Pending Review 09/17/2023 999 999 Reason for Visit * Reason Comments Follow Up Review PET/CT Scan R esults Encounter Details Date Type Department Care Team ([facility] st Contact Info) Description 09/17/2023 10:45 AM EDT Office Visit Hematology/Oncology [place] [address] [place] [address] Kush Linton MD [address] [facility] [place] [address] Personal history of malignant neoplasm of breast*; EGFR-related lung cancer (HCC); 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); 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) Allergies Active Allergy Reactions Criticality Noted Date Comments Grant Oil 02/27/2021 Other reaction(s): ANAPHYLACTIC Ciprofloxacin Rash [...] mRNA, LNP-s, No Pre serve, 2-Dose Series (GreenWizard) 08/26/2021,03/29/2021,07/28/2020,07/02 COVID-19, MRNA-LNP, 23-24, P F, 30 [...] Date Smoking Tobacco: Never Smokeless Tobacco: Never Tobacco Cessation:Counseling Given: Not Answered Comments: smoked till 1996 Alcohol Use Standard [...] Sign Reading Time Taken Comments Blood Pressure 128/75 09/17/2023 10:33 AM EDT Pulse 79 09/17/2023 10:33 AM EDT Temperature 36.4 C (97.6 F) 09/17/2023 1 0:33 AM EDT Respiratory Rate - - Oxygen Saturation 92% 09/17/2023 10: 33 AM EDT Inhaled Oxygen Concentration - - Weight 84.8 kg (186 lb 14.4 oz) 024 10:33 AM EDT Height - - Body Mass Index 32.58 08/20/2023 11:26 AM EDT documented in this encounter Functional [...] as of this encounter Progress Notes * Kush Linton MD - 09/17/2023 10:40 AM EDT Images from the original note were not included. Hematology/Oncology Outpatient Clinic note [facility] [address] [place] [address] Name: Dianne Aguayo Date: 04/12/2021 CHIEF COMPLAINT: Dianne Aguayo is a 82 year old female patient here today for f/u visit. DIAGNOSIS: -Recurrent adenocarcinoma of the lung, she has recurrent disease involving the right lung. (07/2019). -EGFR mutation positive (Exon 19). History of resection of the lung cancer (adenocarcinoma, EGFR positive) in late 2015. T1a N0 M0. BRCA1 positive. 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 T1a N0 M0 History of left breast cancer, 38 years back, S/P left mastectomy - ( right breast mammogram done in October 2022 --> negative). Nonsmoker. CURRENT TREATMENT: - Currently she is not on any specific treatment for the cancer diagnosis. Mild hypercalcemia noted with a Calcium level of 10.7. Planning for IV hydration Zometa x1 dose on 09/18/2023. PREVIOUS TREATMENT: -osimertinib since 08/12/2019- 04/2022. DIAGNOSTIC WORKUP: She had a spiculated nodule associated pleural thickening involving the right major fissure in the right upper lobe. She was followed by Dr. Merrill (02/2016) She underwent right upper lobe wedge resection and lymph luan dissection in March [address] Merrill [facility]. Final pathology showed adenocarcinoma, T1a, N0, EGFR positive. She remained under observation. CT chest done on 06/28/2019: -1. A new nodule up to 8 mm long is seen in the anterior aspect of the right mid to lower chest at the level of the right middle lobe which appears to be separate from the fissure. 2. A 6 mm nodule is seen now in the right lower lobe is a new finding just above the diaphragm. 3. Some enlarging lymph nodes are seen in the middle mediastinum compared with a year ago. They are approaching a cm in maximum transverse diameter. 4. Some calcification is seen in some lymph nodes along the right major fissure and a number of 2-3 mm subpleural nodules are present again in the right lung in a diffuse pattern. 5. I am concerned that there is recurrent metastatic cancer in the right chest and I recommend follow-up with CT PET scanning of the patient. 6. No pleural fluid or pericardial fluid is seen. 7. No pneumonia or pulmonary edema is seen. PET-CT scan (07/13/2019) - 1. Old granulomatous disease involving the chest and abdomen. 2. Interval development of numerous subcentimeter subpleural nodules throughout the right lung witha perilymphatic distribution involving the minor/major fissures, costal and diaphragmatic pleura. The subpleural nodules are all below the resolution of PET. The largest subpleural nodule measuring 7mm within the middle lobe . She underwent resection of the right lung nodule x2, It showed adenocarcinoma. (July 2019). PATHOLOGY: S/P hysterectomy and salpingo-oophorectomy (04/2015) -high-grade serous carcinoma of the endometrium, no myometrial invasion noted. Tumor limited to endometrium, pathological T1a, N0. (8 lymph nodes negative). Omentum negative. Bilateral ovary and fallopian tubes --> benign findings Right tube and ovary: Leydig cell hyperplasia. Peritubal ovarian vascular tumor x2, favor hemangioma -MSI stable. - BRCA1 positive (October 2016) Right upper lobe wedge resection and lymph node dissection (in March 2016) Adenocarcinoma, negative margin, no visceral pleural invasion noted, 4 lymph nodes negative. -1.5 cm, unifocal. pathological T1a N0 -EGFR positive for Exon 19 deletion. -ALK --> negative. Right lower lobe lung lesion wedge biopsy (07/19/2019) - multifocal recurrent adenocarcinoma of the lung, moderate differentiated -EGFR mutation, Exon 19 deletion positive. She had a right shoulder arthroplasty (07/08/2018), final pathology showed benign findings, DJD. No evidence of malignancy. Mammogram Right Breast 10/04/2020(S/P left mastectomy): PET Scan 11/19/2020 IMPRESSION: 1. No metabolically active disease. 2. 5 mm size distal left ureteral calculus which is not contributing to obstructive uropathy. Additional chronic findings elsewhere as discussed above. 01/01/21 Echocardiogram: LEFT VENTRICULAR EJECTION FRACTION 64 HISTORY OF PRESENT ILLNESS: She has come the clinic for the follow-up, For the last few weeks, she has not doing very well, she came to clinic in the wheelchair, has moretiredness, poor appetite, not much ambulating, weight loss noted by about 15 lb, current weight around 185 lb, she is on Eliquis for underlying thrombotic complications no new bleeding complications,nausea and vomiting present, she takes Zofran for the symptomatic treatment. 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 Past Medical History: Diagnosis Date Age-related nuclear cataract of both eyes Allergic rhinitis due to pollen 03/01/2009 Axial hypermetropia of both eyes Benign neoplasm of colon 02/11/12 COLONOSCOPY FLEXIBLE PROXIMAL DIAGNOSTIC performed by Hasmukh Springer MD at ENDOSCOPY [facility] adenomatous polyps repeat colonoscopy in 6-8 months Benign neoplasm of colon 08/20/12 COLONOSCOPY AT [facility] WITH DR. 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 Family history of colon cancer PGM UGO (generalized anxiety disorder) 04/25/2019 Heartburn HTN, goal below 140/90 Irritable bowel syndrome Kidney stones Lung cancer (HCC) 07/2019 Malignant neoplasm of female breast (HCC) 1982 left , s/p chemo and mastectomy Malignant neoplasm of upper lobe of right lung (HCC) 03/18/2016 Presbyopia Puckering of right macula Regular astigmatism of both eyes Senile osteoporosis 2000 Sleep apnea uses cpap Squamous cell skin cancer, 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 LLE Patricia cunha Urticaria 08/27/[address] Valdez/Anne for recurrent hives Uterine cancer (HCC) 04/16/2015 Complete Hysterectomy Social History Socioeconomic History Marital status: Spouse name: Palmer Number of children: 2 Years of education: 14 Highest education level: Not on file Occupational History Occupation: retired 10/2002 Comment: [employer] [place] [employer] Tobacco Use Smoking status: Never Smokeless tobacco: Never Tobacco comments: smoked till 1996 Vaping Use Vaping Use: Never used Substance and Sexual Activity Alcohol use: Yes [...] History Narrative born Noé Horan MD in [place] since 1965 Iftikhar Aguayo is her granddaughter 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 Roque Tran in [place]. repeat in 10 years. COLONOSCOPY, DIAGNOSTIC (RECTUM) 02/11/2012 COLONOSCOPY FLEXIBLE PROXIMAL DIAGNOSTIC performed by Hasmukh Springer MD at [facility] adenomatous polyps repeat colonoscopy in 6-8 months COLONOSCOPY, DIAGNOSTIC (RECTUM) 08/20/2012 COLONOSCOPY AT [facility] WITH DR. SPRINGER, BENIGN POLYPS REPEAT COLONOSCOPY IN 6-9 MONTHS COLONOSCOPY, DIAGNOSTIC (RECTUM) 03/24/2013 COLONOSCOPY FLEXIBLE PROXIMAL DIAGNOSTIC performed by Hasmukh Springer MD at ENDOSCOPY [facility] COLONOSCOPY, DIAGNOSTIC (RECTUM) 04/29/2016 diverticulosis, repeat 3 yrs/COLONOSCOPY FLEXIBLE PROXIMAL DIAGNOSTIC performed by Fox Cerda MD at ENDOSCOPY [facility] COLONOSCOPY, DIAGNOSTIC (RECTUM) 04/23/2020 diverticulosis, repeat 3 yrs / COLONOSCOPY FLEXIBLE PROXIMAL DIAGNOSTIC performed by Nellie Gimenez DO at ENDOSCOPY [facility] CYSTO/URETERO W/LITHOTRIPSY Left 04/04/2014 CYSTOURETHROSCOPY URETEROSCOPY WITH LITHOTRIPSY AND STENT INSERTION performed by Sawyer Parson MD at [facility] CYSTOSCOPY 02/12/2010 DEXA BODY COMP 1 OR > SITE 01/2009 improving, repeat 3 years. DEXA SCAN/BONE MINERAL AXIAL 03/2002 osteoporosis, improved 3-6% on fosamax, repeat in 2005 DEXA SCAN/BONE MINERAL AXIAL 01/29/2006 improved, repeat 2008 DEXA SCAN/BONE MINERAL AXIAL 02/02/2012 DILATION AND CURETTAGE (D&C) 1978 with polypectomy EXPLORATION OF ABDOMEN N/A 04/16/2015 EXPLORATORY LAPAROTOMY performed by Annabel Turner MD at [facility]EMUR FX, REPAIR Left 12/2019 FRAGMENT KIDNEY STONE BY SHOCK WAVE 05/2013 Lithotripsy (ESWL) INSER TUNN ACC DEV;5 YRS/OLDER Right 05/23/2015 INSERT TUNNELED CENTRAL VENOUS ACCESS WITH SUBQ PORT performed by Nay Hernandez MD at OR [facility] KNEE ARTHROSCOPY, DIAGNOSTIC 06/1999 Knee Scope,Diagnostic, Dr Leone LASER SURGERY OF INNER EYE STRANDS Right 05/11/2015 Laser procedure of the RIGHT eye; Dr. Lopez LIGATE/CUT OVIDUCT(S) Tubal Ligation REMOVAL OF ADENOIDS, UNDER AGE 12 Adenoids Removal, <12 Y/O REMOVAL OF BREAST, MODIFIED RADICAL Left 1981 LEFT, Dr Mahad Cortez, [facility] with radiation and chemo REMOVAL OF TONSILS, UNDER AGE 12 Tonsils Removal,<12 Y/O REMOVE CATARACT, INSERT LENS PROSTH Right 05/28/[address] Russell REMOVE CATARACT, INSERT LENS PROSTH Right 11/12/2015 OS REVISE KNEE JOINT REPLACEMENT Right 05/19/2017 THORACOSCOPY W/ INFILTRATE BIOPSY Right 07/19/2019 THORACOSCOPY W/ INFILTRATE BIOPSY performed by Benja Merrill MD at [facility] THORACOSCOPY, DIAGNOSTIC, LUNGS Right 03/12/2016 THORACOSCOPY DIAGNOSTIC WITHOUT BIOPSY performed by Benja Merrill MD at [facility] TOTAL ABD HYSTERECTOMY W/WO REMOVAL OF TUBE(S) N/A 04/16/2015 TOTAL ABDOMINAL HYSTERECTOMY WITH OR WITHOUT TUBES AND OVARIES performed by Annabel Turner MD at [facility] Family History Problem Relation Age of Onset Cancer Mother 40 breast Mental Disorder Grandmother (Maternal) Alzheimers Heart Disorder Grandfather (Paternal) Cancer Grandmother (Paternal) colon Diabetes None Stroke None Thyroid Disorder None Eye Problems None Patient denies hx AMD, glaucoma, retinal detachments or blindness Review of patient's allergies indicates: Allergen Reactions Paclitaxel Anaphylaxis Other reaction(s): ANAPHYLACTIC Grant Oil Other reaction(s): ANAPHYLACTIC Ciprofloxacin Rash Rash [...] Nausea/vomiting nausea Other reaction(s): GI SYMPTOMS Current Outpatient Medications Medication Sig Dispense Refill amoxicillin (AMOXIL) 500 MG Capsule TAKE 4 CAPSULES BY MOUTH 1 HOUR PRIOR TO APPOINTMENT 4 Cap 3 Meclizine HCl 25 MG Oral Tablet (Antivert) Take 1 Tab by mouth 3 times a day as needed for Dizziness. 30 Tab 1 Ondansetron HCl 8 MG Oral Tablet Take 1 Tab by mouth every 8 hours as needed for Nausea. 30 Tab 2 Famotidine 20 MG Oral Tablet (Pepcid) Take 1 Tablet by mouth 2 times a day as needed for Heartburn.60 Tablet 5 Colchicine 0.6 MG Oral Tablet TAKE 1 TABLET BY MOUTH 2 TIMES A DAY NEEDED FOR FLARE 60 Tablet 1 Fluticasone Propionate 50 MCG/ACT Nasal Suspension (Flonase) Administer 2 Sprays into each nostril in the morning. 48 mL 1 Vitamin D3 50 MCG (2000 UT) Oral Capsule Take 1 Capsule by mouth in the morning. 90 Capsule 3 Potassium Citrate ER 10 MEQ (1080 MG) Oral Tablet Extended Release (potassium citrate-10) Take 1 Tablet by mouth in the morning and 1 Tablet before bedtime. 180 Tablet 2 Metoprolol Succinate ER 50 MG Oral Tablet Extended Release 24 Hour (toPROL XL) Take 1 Tablet by mouth in the morning. 90 Tablet 3 Eliquis 5 MG Oral Tablet Take 1 Tablet by mouth in the morning and 1 Tablet before bedtime. 180 Tablet 1 tiZANidine HCl 4 MG Oral Capsule Take 1 Capsule by mouth 3 times a day as needed for Muscle spasms.270 Capsule 3 amLODIPine Besylate 10 MG Oral Tablet (Norvasc) Take 1 Tablet by mouth in the morning. 90 Tablet 2 hydroCHLOROthiazide 12.5 MG Oral Tablet (Hydrodiuril) Take 1 Tablet by mouth in the morning. 90 Tablet 3 Fexofenadine HCl 180 MG Oral Tablet (Ashley) Take 1 Tablet by mouth daily as needed for Allergies.90 Tablet 3 Albuterol Sulfate HFA 108 (90 Base) MCG/ACT Inhalation Aerosol Solution Inhale 2 Puffs by mouth in the morning and 2 Puffs at noon and 2 Puffs in the evening and 2 Puffs before bedtime. 54 g 1 Lisinopril 40 MG Oral Tablet Take 1 Tablet by mouth in the morning. 90 Tablet 3 Gabapentin 100 MG Oral Capsule (Neurontin) Take 1 capsule nightly 30 Capsule 0 Magnesium Oxide 400 MG Oral Capsule Take 1 capsule daily. 30 Capsule 5 Riboflavin 400 MG Oral Tablet Take 1 Tablet by mouth in the morning. 30 Tablet 5 Atorvastatin Calcium 20 MG Oral Tablet (Lipitor) Take 1 Tablet by mouth in the morning. 90 Tablet 1 Ondansetron 4 MG Oral Tablet Disintegrating (Zofran) Place 1 Tablet on tongue every 8 hours as needed for Nausea. dissolve on tongue. 30 Tablet 0 Prochlorperazine Maleate 10 MG Oral Tablet (Compazine) Take 1 Tablet by mouth every 6 hours as needed for Nausea. 30 Tablet 2 Current Facility-Administered Medications Medication Dose Route Frequency Provider Last Rate Last Admin albuterol (PROVENTIL HFA) inhaler 4 Puff 4 Puff Inhalation Q4H PRN Hank Ivey, DO 4 Puff at01/27/17 1130 OBJECTIVE: BP 128/75 (BP Site: Right Arm, BP Position: Sitting, BP Cuff Size: Large) | Pulse 79 | Temp 36.4 C (97.6 F) (Tympanic) | Wt 84.8 kg (186 lb 14.4 oz) | SpO2 92% | BMI 32.58 kg/m | BSA 1.95 m PHYSICAL EXAM: General Appearance: Normal - Healthy appearing patient in no acute distress Skin: Normal- No rashes, lesions or petechiae. HEENT: Normal - No oral or pharyngeal masses, ulceration or thrush noted, no sinus tenderness Lymph Nodes: Normal - No palpable lymph nodes in the neck or supraclavicular areas Lungs/Thorax: Normal - Clear to auscultation Heart: Normal - Regular rate and rhythm, normal S1, S2, no appreciable murmurs, rubs, gallops Pulses/Extremities: Normal - 2+ throughout and symmetrical, no edema b/l Abdomen: Normal - Soft, nontender, bowel sounds present, no appreciable hepatosplenomegaly, no palpable masses Musculoskeletal: Normal - No pain on palpation over bony prominence, no joint or bony deformity Neurologic: Normal - Grossly intact Psyche: No vegetative signs of depression. LABS: I reviewed blood workup done on 05/12/2022: -BUN/Creat: 17/1.0, Calcium 9.3. -Uric acid --> 4.9. Blood workup done on 01/09/2023: -WBC 8300, H&H of 13/39.4, Platelet count 641386 -BUN/Creat: 19/0.9, Calcium 9.3, normal liver function test. Blood workup done on 09/17/2023: -WBC 67546, H&H of 13.7/41.6, Platelet count of 597375 -ANC 9400, monocyte count 1100 -BUN/Creat: 23/1.3 -AST 29, ALT 27, alkaline phosphatase 231, bilirubin level 1.1 -phosphorus level --> 3.6 PET-CT scan (06/05/2021: No metabolic active disease noted anywhere else. PET-CT scan done on 07/07/2022 --> no metabolic active disease noted anywhere else. CT scan of chest, abdomen pelvis done on 01/13/2023: - right upper lobe 8 x 5 mm nodule which is new -right lower paratracheal lymph node 1.1 cm, another right lower paratracheal lymph node 1.4 cm, left lower paratracheal lymph node 1 cm, 3 right hilar lymph node measuring each 1.1 cm. -no other suspicious finding noted in the abdomen or pelvis. -multiple pleural nodules noted. PET-CT scan done on 02/02/2023: - No convincing FDG PET/CT evidence of malignancy. Recommend following the new right anterior upperlobe perifissural pulmonary nodule and scattered right pleural plaques with serial diagnostic CT scans. CT chest with contrast done on 05/18/2023: - New 1.1 cm prevascular lymph node -calcified right hilar lymph node which is stable - Multiple right pleural nodules, have increased slightly in the size, from 4 mm --> 6 mm. PET-CT scan done on 09/08/2023: 1. Increased hypermetabolic mediastinal and right hilar lymphadenopathy, consistent with luan metastases. 2. Hypermetabolic right pleural metastastic disease with associated moderate pleural effusion. 3. New hypermetabolic hepatic and osseous metastases. IMPRESSION: EGFR related lung cancer (recurrent adenocarcinoma) History of endometrial cancer History of breast cancer BRCA 1 positive Personal hx of PE, she is on Eliquis. residential use of anticoagulation 80-year-old female, -recurrent non-small cell lung cancer (adenocarcinoma), she has recurrent disease involving the right lung, she has sub cm lung nodules which are not metabolically active, no mediastinal lymphadenopathy, no evidence of distant metastatic disease noted in the PET-CT scan -EGFR mutation positive (Exon 19) -BRCA1 mutation positive. (History of left breast cancer, history of endometrial cancer in the past, MSI stable). -she received osimertinib between August 2019-April 2022. Recently she had follow-up PET-CT scan in July 2022. no evidence of recurrent disease noted anywhere else. Reviewed with regarding the MRI of the right hip done on 07/08/2022, stress fracture in her right femoral neck noted. Currently under conservative treatment , She would several imaging studies done lately in the form of CT scan of the chest, PET-CT scan, reviewed the latest CT scan of the chest done on 05/18/2023. Currently she is off the osimertinib since April of 2022. I reviewed with her and her [id number] regarding the PET-CT scan findings, she has progressionof the disease, now she has mediastinum right hilar lymphadenopathy, pleural metastatic disease, liver metastatic disease, bone metastatic disease. Reviewed blood workup done today, mild hypercalcemia noted, alkaline phosphatase on higher side suggest more bony involvement. I would like to give her IV Zometa x1 dose, IV hydration 1 L of normal saline tomorrow Would like to proceed with a biopsy of the 1 of the liver lesion but also would like to start osimertinib soon. Will see her in about [address] Kush Linton Hem/Onc (This note was completed using the dictation program Fluency Direct. As such, there may be misspellings word substitutions, or other variations that should not change the essence of the clinical content of this encounter note. If there is need for further clarification, please direct questions to the provider listed above.) documented in this encounter Nursing Notes * Dyana Oliveira, MED ASSIST - 09/17/2023 10:33 AM EDT Patient identifed by name and birthdate Do you have any concerns about pain management for today's visit? No Living Will or Advance Directive for Health Care as noted on the problem list. [facility] is a way you can talk to your provider on line through e-mail. Would you like to sign up? I can activate it for you? ALREADY ACTIVE Filed Vitals: 09/17/23 1033 BP: 128/75 Pulse: 79 Temp: 36.4 C (97.6 F) TempSrc: Tympanic SpO2: 92% Weight: 84.8 kg (186 lb 14.4 oz) Patient was instructed to not get up on the exam table/exam chair until directed and assisted by their provider; patient is to remain seated in the chair/ wheelchair/ exam table/ exam chair for fall prevention and safety reasons. Patient is aware to have assistance to step down off exam table/exam chair with personnel. Patient voiced full comprehension of instructions. documented in this encounter Plan of Treatment Upcoming Encounters Date Type Department Care Team (Latest Contact Info) Description 09/21/2023 10:30 AM EDT Immunization/Injectio n Hematology/Oncolog y Treatment, [place] [address] [place] [address] Nurse, Eduardo [address] [facility] [address] [place] [address] 09/21/2023 1:00 PM EDT Pharmacy Pharmacy Hematology Oncology [facility] [address] [place] [address] [facility] Hem/Onc [address] [place] [address] 09/22/2023 9:00 AM EDT Hospital Encounter OR [facility], Operating Room, [facility] - 4th Floor [address] [place] [address] [facility], In And Out Surgery [address] [place] [address] 09/22/2023 9:00 AM EDT Appointment Radiology, [facility] [address] [place] [address] 09/22/2023 9:00 AM EDT - 09/22/2023 10:00 AM EDT Surgery OR [facility], Operating Room, [address] [place] [address] [facility], In And Out Surgery [address] [place] [address] PRE / POST CARE 09/29/2023 1:00 PM EDT Office Visit Family Practice [facility] [address] [facility] [place] [address] Hank Ivey DO [address] [facility] [place] [address] 09/30/2023 12:30 PM EDT Office Visit Gynecology/Oncolog y, [facility] [address] [place] [address] Ama Ruano PA-C [address] [place] [address] 10/01/2023 8:30 AM EDT Appointment MRI, [place] [address], [place] [id number] 10/01/2023 10:00 AM EDT Documentation Radiation Oncology, [facility] [address] [place] [address] Prakash Vyas MD [address], [place] [id number] 10/06/2023 1:00 PM EDT Immunization/Injectio n Hematology/Oncolog y Treatment, [place] [address] [facility] [address] Nurse, Med 4 [address] [facility] [place] [address] 10/21/2023 8:30 AM EDT Office Visit Cardiology, [facility] [address] [place] [address] Sarah Mohan CRNP [address] [place] [address] 10/27/2023 3:00 PM EDT Office Visit Nephrology, [facility] [address] [place] [address] Shirley Alicea PA-C [address] [place] [address] 11/09/2023 10:00 AM EDT Nurse Only Ancillary [facility] [place] [address] [place] [address] Im, Nurse Annual Wellness [facility] [address] [place] [address] 11/20/2023 9:30 AM EDT Hospital Encounter ENDO [facility], Endoscopy Room [facility] [address] [place] [address] Rogelio Yeh MD [address] [place] [address] 11/20/2023 9:30 AM EDT - 11/20/2023 10:00 AM EDT Surgery ENDO [facility], Endoscopy Room [facility] [address] [place] [phone] Rogelio Yeh MD [address] [place] [address] COLONOSCOPY FLEXIBLE PROXIMAL DIAGNOSTIC 11/23/2023 9:20 AM EDT Office Visit Family Practice [facility] [place] [address] [place] [address] Esperanza Jeffery DO [address] [place] [address] 01/28/2024 11:00 AM EDT Office Visit Otolaryngology/Hea d & Neck/Facial Plastic Surgery [address] [place] [address] Tyrone Tenorio MD [address] [place] [address] 03/03/2024 11:00 AM EDT Office Visit Rheumatology [place] [id number] [facility] [place] [address] Avinash Rasmussen MD [facility] [place] [address] Scheduled Orders Name Type Priority Associated Diagnoses Orde r Schedule IR BIOPSY Medical Imaging Routine Personal history of malignant neoplasm of breast 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) 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) Ordered: 09/17/2023 Scheduled Procedures Name Priority Associated Diagnoses Date/Ti [...] Additional history exists CKD HGB USE SMARTSET 23802 09/16/202409/16, 09/17/2023, 08/20/2023, Additional history exists CKD PHOS USE SMARTSET 06082 09/16/2024 09/17/2023, 07/28/2022, 06/24/2021, Additional history exists [...] D LEVEL ONCE IN A LIFETIME-USE SMARTSET# 10443 Completed 05/11/2023, 07/28/2022, 06/24/2021, Additional history exists [...] this encounter Medical Devices Implanted Type Area Glazing Department Supervisor Device Identifier Shelf Expiration Date Model / Serial / Lot 7fr X 24cm Bard Inlay [place] Green Ureteral Stent Implanted:Qty : 1 on 04/04/2014 by Sawyer Parson MD at OR [facility] Left: Ureter INA[employer]IVE [employer] 10/01/2018 [id number] / / [id number] Port Power Mri W/8fr Cath - [id number] Implanted:Qty : 1 on 05/23/2015 by Nay Hernandez MD at OR [facility] Right: Subclavian CR BARD : PERIPHERAL VASCULAR 08/29/2016 [id number] / / [id number] documented as of this encounter Procedures Procedure Name Priority Date/Time Associated Diagnosis Comments DIFFERENTIAL, AUTOMATED STAT 09/17/2023 11:17 AM EDT Personal history of malignant neoplasm of breast 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) 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) COMPREHENSIVE METABOLIC PANEL STAT 09/17/2023 11:17 AM EDT Personal history of malignant neoplasm of breast 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) 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) CBC STAT 09/17/2023 11:17 AM EDT Personal history of malignant neoplasm of breast 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) 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) PHOSPHORUS STAT 09/17/2023 11:17 AM EDT Personal history of malignant neoplasm of breast 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) 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) CBC STAT 09/17/2023 11:17 AM EDT Personal history of malignant neoplasm of breast 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) 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) documented in this encounter Results * PHOSPHORUS (09/17/2023 11:17 AM EDT) Phosphorus 3.6 2.5 - 4.8 mg/dL 09/17/2023 2:55 PM EDT [facility] 56- Blood Venous blood specimen / Unknown Venipuncture / Unknown 09/17/2023 11:17 AM EDT 09/17/2023 11:17 AM EDT Kush Linton MD LAB BLOOD ORDERABLES [facility] [address]- [address] [place] [address] * (ABNORMAL) DIFFERENTIAL, AUTOMATED (09/17/2023 11:17 AM EDT) WBC 12.89(H) 4.00 - 10.80 K/uL 09/17/2023 11:28 AM EDT [facility] 56- Neutrophils % 72.9 40.0 - 75.0 % 09/17/2023 11:28 AM EDT [facility] 56- Lymphocytes % 16.0(L) 18.0 - 42.0 % 09/17/2023 11:28 AM EDT [facility] 56- Monocytes % 8.9 1.0 - 11.0 % 09/17/2023 11:28 AM EDT [facility] 56- Eosinophils % 2.0 0.0 - 6.0 % 09/17/2023 11:28 AM EDT [facility] 56- Basophils % 0.2 0.0 - 2.0 % 09/17/2023 11:28 AM EDT [facility] Absolute Neutrophils 9.40(H) 1.80 - 7.70 K/uL 09/17/2023 11:28 AM EDT [facility] Absolute Lymphocytes 2.06 1.00 - 4.80 K/ul 09/17/2023 11:28 AM EDT [facility] Absolute Monocytes 1.15(H) 0.00 - 1.10 K/uL 09/17/2023 11:28 AM EDT [facility] Absolute Eosinophils 0.26 0.00 - 0.70 K/uL 09/17/2023 11:28 AM EDT [facility] Absolute Basophils 0.02 0.00 - 0.20 K/uL 09/17/2023 11:28 AM T [facility] Blood Venous blood specimen / Unknown Venipuncture / Unknown 09/17/2023 11:17 AM EDT 09/17/2023 11:17 AM EDT Kush Linton MD LAB BLOOD ORDERABLES [facility] [address] [place] [address] * (ABNORMAL) CBC (09/17/2023 11:17 AM EDT) WBC 12.89(H) 4.00 - 10.80 K/uL 09/17/2023 11:28 AM EDT [facility] RBC 4.57 3.85 - 5.15 M/uL 09/17/2023 11:28 AM EDT [facility] HGB 13.7 12.0 - 15.3 g/dL 09/17/2023 11:28 AM EDT [facility] HCT 41.6 36.0 - 45.2 % 09/17/2023 11:28 AM EDT [facility] MCV 91.0 81.5 - 97.5 fL 09/17/2023 11:28 AM EDT [facility] MCH 30.0 27.0 - 34.0 pg 09/17/2023 11:28 AM EDT [facility] 56 MCHC 32.9 32.0 - 36.0 g/dL 09/17/2023 11:28 AM EDT [facility] 56 RDW 14.6 11.5 - 15.5 % 09/17/2023 11:28 AM EDT [facility] 56 PLT 259 140 - 400 K/uL 09/17/2023 11:28 AM EDT [place] [address] MPV 10.3 6.6 - 11.1 fL 09/17/2023 11:28 AM EDT [facility] 56 Blood Venous blood specimen / Unknown Venipuncture / Unknown 09/17/2023 11:17 AM EDT 09/17/2023 11:17 AM EDT Kush Linton MD LAB BLOOD ORDERABLES [facility] [address] [place] [address] * AMMONIA (09/17/2023 11:17 AM EDT) Ammonia 29 11 - 35 umol/L 09/17/2023 5:23 PM EDT [facility] Blood Venous blood specimen / Unknown Venipuncture / Unknown 09/17/2023 11:17 AM EDT 09/17/2023 11:17 AM EDT Kush Linton MD LAB BLOOD ORDERABLES [facility] [address] [place] [address] * (ABNORMAL) COMPREHENSIVE METABOLIC PANEL (09/17/2023 11:17 AM EDT) BUN 23(H) 6 - 20 mg/dL 09/17/2023 12:07 PM EDT [facility] 56 Creatinine 1.3(H) 0.5 - 1.0 mg/dL 09/17/2023 12:07 PM EDT [facility] 56 Estimated Glomerular Filtration Rate 40(L) >=60 mL/min 09/17/2023 12:07 PM EDT [address] Comment:eGFR is calculated b ased on the CKD-EPI 2020 equation Sodium 140 135 - 146 mmol/L 09/17/2023 12:07 PM EDT [address] Potassium 3.8 3.5 - 5.1 mmol/L 09/17/2023 12:07 PM EDT [address] Chloride 101 98 - 107 mmol/L 09/17/2023 12:07 [address]T [address] CO2 25 22 - 32 mmol/L 09/17/2023 12:07 PM EDT [place] [address] Anion Gap 14 7 - 15 mmol/L 09/17/2023 12:07 [address] Glucose 132(H) 70 - 120 mg/dL 09/17/2023 12:07 PM T [address] Albumin 4.2 3.8 - 5.0 g/dL 09/17/2023 12:07 [address] AST 29 10 - 35 U/L 09/17/2023 12:07 PM T [address] Alkaline Phosphatase 231(H) 35 - 130 U/L 09/17/2023 12:07 PM T [address] Bilirubin, Total 1.1 <=1.2 mg/dL 09/17/2023 12:07 PM T [address] Calcium 10.7(H) 8.4 - 10.2 mg/dL 09/17/2023 12:07 [address] Protein 6.2 6.0 - 8.3 g/dL 09/17/2023 12:[address] ALT 27 10 - 35 U/L 09/17/2023 12:07 PM T [address] Blood Venous blood specimen / Unknown Venipuncture / Unknown 09/17/2023 11:17 AM EDT 09/17/2023 11:17 AM EDT Kush Linton MD LAB BLOOD ORDERABLES [address] [place] [address] documented in this encounter Visit Diagnoses Diagnosis Personal history of malignant neoplasm of breast- Primary 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) Secondary malignant neoplasm of liver 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) Secondary malignant neoplasm of bone and bone marrow Personal history of malignant neoplasm of breast [...] and were consensually agreed upon. 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
--- OUTSIDE RECORDS SUMMARY | 2023-09-27 13:11 | External Medical Summary ---
Author Name Unknown Address Unknown Organization K09:[facility] [place] [address] Laboratory Report Ordering Provider Test Date Status FROILAN VENEGAS 09/17/2023 11:17:27 Final Observation Date Value Abnormality Reference (Units ) Status WBC, Total 09/17/2023 11:17:27 12.89 Above high normal 4 .00-10.80 (K/uL) Final RBC 09/17/2023 11:17:27 4.57 3.85-5.15 (M/uL) Final Hemoglobin 09/17/2023 11:17:27 13.7 12.0-15.3 (g/dL) Final HCT 09/17/2023 11:17:27 41.6 36.0-45.2 (%) Final MCV 09/17/2023 11:17:27 91.0 81.5-97.5 (fL) Final MCH 09/17/2023 11:17:27 30.0 27.0-34.0 (pg) Final MCHC 09/17/2023 11:17:27 32.9 32.0-36.0 (g/dL) Final RDW 09/17/2023 11:17:27 14.6 11.5-15.5 (%) Final Platelets 09/17/2023 11:17:27 259 140-400 (K /uL) Final MPV 09/17/2023 11:17:27 10.3 6.6-11.1 ( fL) Final Performing Location [facility] [place] [address]
--- OUTSIDE RECORDS SUMMARY | 2023-09-27 13:11 | External Medical Summary | Summary of Care ---
Author Name Unknown Organization [facility] Address [address] [place] [address] Phone [phone] Care Team Providers Care Market Research Interviewer Name Role Phone Hank Ivey Primary Care Provider [phone] Reason for Referral * Precert (Within 10 days (routine)) - Pending Review Specialty Diagnoses / Procedures Referred By Contac t Referred To Contact Radiology Diagnoses Personal history of malignant neoplasm of breast 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) 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) Procedures IR BIOPSY Kush Linton MD 200 [facility] [place] [address] Referral ID Status Reason Start Date Expiration Date V isits Requested Visits Authorized [id number] Pending Review 09/17/2023 999 999 Reason for Visit * Reason Comments Follow Up Review PET/CT Scan R esults Encounter Details Date Type Department Care Team ([facility] st Contact Info) Description 09/17/2023 10:45 AM EDT Office Visit Hematology/Oncology [place] [address] [place] [address] Kush Linton MD 200 [facility] [place] [address] Personal history of malignant neoplasm of breast*; EGFR-related lung cancer (HCC); 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); 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) Allergies Active Allergy Reactions Criticality Noted Date Comments [place] Oil 02/27/2021 Other reaction(s): ANAPHYLACTIC Ciprofloxacin Rash [...] as of this encounter (statuses as of 09/17/2023) Medications Medication Sig Dispensed Refills Start Date [...] as of this encounter (statuses as of 09/17/2023) Active Problems Problem Noted Date Diagnosed Date [...] as of this encounter (statuses as of 09/17/2023) Resolved Problems Problem Noted Date Diagnosed Date [...] as of this encounter (statuses as of 09/17/2023) Immunizations Name Administration Dates Next Due COVID-19 mRNA, LNP-s, No Pre serve, 2-Dose Series (Sitesimon) 08/26/2021,03/29/2021,07/28/2020,07/02 COVID-19, MRNA-LNP, 23-24, P F, 30 [...] were not included. Hematology/Oncology Outpatient Clinic note [facility] [address] [place] [address] Name: Dianne Aguayo Date: 04/12/2021 CHIEF COMPLAINT: [...] dissection in March [address] Merrill [facility]. Final pathology showed adenocarcinoma, T1a, N0, [...] performed by Hasmukh Springer MD at ENDOSCOPY [facility] adenomatous polyps repeat colonoscopy in 6-8 months Benign neoplasm of colon 08/20/12 COLONOSCOPY AT [facility] WITH DR. 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 Roque Tran in [place]. repeat in 10 years. COLONOSCOPY, DIAGNOSTIC (RECTUM) 02/11/2012 COLONOSCOPY FLEXIBLE PROXIMAL DIAGNOSTIC performed by Hasmukh Springer MD at ENDOSCOPY [facility] adenomatous polyps repeat colonoscopy in 6-8 months COLONOSCOPY, DIAGNOSTIC (RECTUM) 08/20/2012 COLONOSCOPY AT [facility] WITH DR. SPRINGER, BENIGN POLYPS REPEAT COLONOSCOPY IN 6-9 MONTHS COLONOSCOPY, DIAGNOSTIC (RECTUM) 03/24/2013 COLONOSCOPY FLEXIBLE PROXIMAL DIAGNOSTIC performed by Hasmukh Springer MD at ENDOSCOPY [facility] COLONOSCOPY, DIAGNOSTIC (RECTUM) 04/29/2016 diverticulosis, repeat 3 yrs/COLONOSCOPY FLEXIBLE PROXIMAL DIAGNOSTIC performed by Fox Cerda MD at ENDOSCOPY [facility] COLONOSCOPY, DIAGNOSTIC (RECTUM) 04/23/2020 diverticulosis, repeat 3 yrs / COLONOSCOPY FLEXIBLE PROXIMAL DIAGNOSTIC performed by Nellie Gimenez DO at ENDOSCOPY [facility] CYSTO/URETERO W/LITHOTRIPSY Left 04/04/2014 CYSTOURETHROSCOPY URETEROSCOPY WITH LITHOTRIPSY AND STENT INSERTION performed by Sawyer Parson MD at OR [facility] CYSTOSCOPY 02/12/2010 DEXA BODY COMP 1 OR > SITE 01/2009 improving, repeat 3 years. DEXA SCAN/BONE MINERAL AXIAL 03/2002 osteoporosis, improved 3-6% on fosamax, repeat in 2005 DEXA SCAN/BONE MINERAL AXIAL 01/29/2006 improved, repeat 2008 DEXA SCAN/BONE MINERAL AXIAL 02/02/2012 DILATION AND CURETTAGE (D&C) 1977 with polypectomy EXPLORATION OF ABDOMEN N/A 04/16/2015 EXPLORATORY LAPAROTOMY performed by Annabel Turner MD at OR [facility] FEMUR FX, REPAIR Left 12/2019 FRAGMENT KIDNEY STONE BY SHOCK WAVE 05/2013 Lithotripsy (ESWL) INSER TUNN ACC DEV;5 YRS/OLDER Right 05/23/2015 INSERT TUNNELED CENTRAL VENOUS ACCESS WITH SUBQ PORT performed by Nay Hernandez MD at [facility] KNEE ARTHROSCOPY, DIAGNOSTIC 06/1999 Knee Scope,Diagnostic, Dr Leone LASER SURGERY OF INNER EYE STRANDS Right 05/11/2015 Laser procedure of the RIGHT eye; Dr. Lopez LIGATE/CUT OVIDUCT(S) Tubal Ligation REMOVAL OF ADENOIDS, UNDER AGE 12 Adenoids Removal, <12 Y/O REMOVAL OF BREAST, MODIFIED RADICAL Left 1981 LEFT, Dr Mahad Cortez, [facility] with radiation and chemo REMOVAL OF TONSILS, UNDER AGE 12 Tonsils Removal,<12 Y/O REMOVE CATARACT, INSERT LENS PROSTH Right 05/28/[address] Russell REMOVE CATARACT, INSERT LENS PROSTH Right 11/12/2015 OS REVISE KNEE JOINT REPLACEMENT Right 05/19/2017 THORACOSCOPY W/ INFILTRATE BIOPSY Right 07/19/2019 THORACOSCOPY W/ INFILTRATE BIOPSY performed by Benja Merrill MD at [facility] THORACOSCOPY, DIAGNOSTIC, LUNGS Right 03/12/2016 THORACOSCOPY DIAGNOSTIC WITHOUT BIOPSY performed by Benja Merrill MD at [facility] TOTAL ABD HYSTERECTOMY W/WO REMOVAL OF TUBE(S) N/A 04/16/2015 TOTAL ABDOMINAL HYSTERECTOMY WITH OR WITHOUT TUBES AND OVARIES performed by Annabel Turner MD at [facility] Family History Problem Relation Age of Onset Cancer Mother 40 breast Mental Disorder Grandmother (Maternal) Alzheimers Heart Disorder Grandfather (Paternal) Cancer Grandmother (Paternal) colon Diabetes None Stroke None Thyroid Disorder None Eye Problems None Patient denies hx AMD, glaucoma, retinal detachments or blindness Review of patient's allergies indicates: Allergen Reactions Paclitaxel Anaphylaxis Other reaction(s): ANAPHYLACTIC [place] Oil Other reaction(s): ANAPHYLACTIC Ciprofloxacin Rash Rash [...] 4 Puff Inhalation Q4H PRN Hank Ivey, 4 Puff at01/27/17 1130 OBJECTIVE: BP 128/75 [...] -WBC 8300, H&H of 13/39.4, Platelet count 897996 -BUN/Creat: 19/0.9, Calcium 9.3, normal liver function test. Blood workup done on 09/17/2023: -WBC 58250, H&H of 13.7/41.6, [place] [address]89 -ANC 9400, monocyte count 1100 -BUN/Creat: 23/1.3 [...] hx of PE, she is on Eliquis. intermediate designer use of anticoagulation 80-year-old female, -recurrent non-small [...] 2022. I reviewed with her and her [id number] regarding the PET-CT scan findings, she has [...] Description 09/18/2023 10:30 AM EDT Hem/Onc Treatment Hematology/Oncolog y Treatment, [place] [address] [facility] [place] [phone] Park, Chair 1 Hem Onc [facility] [address] [facility] [place] [address] 09/21/2023 10:30 AM EDT Immunization/Injectio n Hematology/Oncolog y Treatment, [place] [address] [facility] [place] [phone] Nurse, Med 4 [address] [facility] [place] [address] 09/29/2023 1:00 PM EDT Office Visit Family Practice [facility] [address] Hank Ivey, DO [address] [facility] [place] [address] 09/30/2023 12:30 PM EDT Office Visit Gynecology/Oncolog y, [place] [address] [place] [address] Ama Ruano PA-C [address] [place] [address] 10/01/2023 8:30 AM EDT Appointment MRI, [address] [phone] 10/01/2023 10:00 AM EDT Documentation Radiation Oncology, [address] [id number] Prakash Vyas MD [address] [facility] [place] [address] 10/06/2023 1:00 PM EDT Immunization/Injectio n Hematology/Oncolog y Treatment, [place] [address] [place] [phone] Nurse, Med 4 [address] [facility] [place] [address] 10/21/2023 8:30 AM EDT Office Visit Cardiology, [facility] [address] [place] [address] Sarah Mohan CRNP [address] [place] [address] 10/27/2023 3:00 PM EDT Office Visit Nephrology, [facility] [address] [facility] [place] [address] ZemaShirley newman PA-C [address] [facility] [place] [address] 11/09/2023 10:00 AM EDT Nurse Only Ancillary [facility] [place] [address] [place] [address] Im, Nurse Annual Wellness [facility] [address] [facility] [place] [address] 11/20/2023 9:30 AM EDT Hospital Encounter ENDO [facility], Endoscopy Room [facility] [address] [place] [phone] Rogelio Yeh MD [address] [place] [address] 11/20/2023 9:30 AM EDT - 11/20/2023 10:00 AM EDT Surgery ENDO [facility], Endoscopy Room [facility] [address] [place] [phone] Rogelio Yeh MD [address] [place] [address] COLONOSCOPY FLEXIBLE PROXIMAL DIAGNOSTIC 11/23/2023 9:20 AM EDT Office Visit Family Practice [facility] [address] [facility] [place] [address] Esperanza Jeffery DO [address] [facility] [place] [address] 01/28/2024 11:00 AM EDT Office Visit Otolaryngology/Hea d & Neck/Facial Plastic Surgery [address] [place] [address] Tyrone Tenorio MD [address] [place] [address] 03/03/2024 11:00 AM EDT Office Visit Rheumatology [facility] [address] [place] [address] Avinash Rasmussen MD [address] [place] [address] Pending Results Name Type Priority Associated Diagnoses Date /Time AMMONIA Lab Routine Personal history of malignant neoplasm of breast 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) 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) 09/17/2023 11:17 AM EDT Scheduled Orders Name Type Priority Associated Diagnoses Orde r Schedule AMMONIA Lab Routine Personal history of malignant neoplasm of breast 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) 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) Expected: 09/17/2023, Expires: 09/16/2024 IR BIOPSY Medical Imaging Routine Personal history [...] Additional history exists CKD HGB USE SMARTSET 11980 09/16/202409/16, 09/17/2023, 08/20/2023, Additional history exists CKD PHOS USE SMARTSET 51504 09/16/2024 09/17/2023, 07/28/2022, 06/24/2021, Additional history exists [...] D LEVEL ONCE IN A LIFETIME-USE SMARTSET# 76498 Completed 05/11/2023, 07/28/2022, 06/24/2021, Additional history exists [...] this encounter Medical Devices Implanted Type Area Loader Device Identifier Shelf Expiration Date Model / Serial / Lot 7fr X 24cm Bard Inlay Peavine Ureteral Stent Implanted:Qty : 1 on 04/04/2014 by Sawyer Parson MD at OR [facility] Left: Ureter INACTIVE CR [employer] 10/01/2018 [id number] / / [id number] Port Power Mri W/8fr Cath - [id number] Implanted:Qty : 1 on 05/23/2015 by Nay Hernandez MD at OR [facility] Right: Subclavian CR BARD : PERIPHERAL VASCULAR 08/29/2016 [id number] / / [id number] documented as of this encounter Procedures Procedure [...] - 4.8 mg/dL 09/17/2023 2:55 PM EDT [facility] 56 Blood Venous blood specimen / Unknown Venipuncture / Unknown 09/17/2023 11:17 AM EDT 09/17/2023 11:17 AM EDT Kush Linton MD LAB BLOOD ORDERABLES [facility] [address] [place] [address] * (ABNORMAL) DIFFERENTIAL, AUTOMATED (09/17/2023 11:17 AM EDT) WBC 12.89(H) 4.00 - 10.80 K/uL 09/17/2023 11:28 AM EDT [facility] 56 Neutrophils % 72.9 40.0 - 75.0 % 09/17/2023 11:28 AM EDT [facility] 56 Lymphocytes % 16.0(L) 18.0 - 42.0 % 09/17/2023 11:28 AM EDT [facility] 56 Monocytes % 8.9 1.0 - 11.0 % 09/17/2023 11:28 AM EDT [facility] 56 Eosinophils % 2.0 0.0 - 6.0 % 09/17/2023 11:28 AM EDT [facility] 56 Basophils % 0.2 0.0 - 2.0 % 09/17/2023 11:28 AM EDT [facility] 56 Absolute Neutrophils 9.40(H) 1.80 - 7.70 K/uL 09/17/2023 11:28 AM EDT [facility] 56 Absolute Lymphocytes 2.06 1.00 - 4.80 K/ul 09/17/2023 11:28 AM EDT [facility] 56 Absolute Monocytes 1.15(H) 0.00 - 1.10 K/uL 09/17/2023 11:28 AM EDT [facility] 56 Absolute Eosinophils 0.26 0.00 - 0.70 K/uL 09/17/2023 11:28 AM EDT [facility] 56 Absolute Basophils 0.02 0.00 - 0.20 K/uL 09/17/2023 11:28 AM EDT [place] [address] Blood Venous blood specimen / Unknown Venipuncture / Unknown 09/17/2023 11:17 AM EDT 09/17/2023 11:17 AM EDT Kush Linton MD LAB BLOOD ORDERABLES [place] [address] [place] [address] * (ABNORMAL) CBC (09/17/2023 11:17 AM EDT) WBC 12.89(H) 4.00 - 10.80 K/uL 09/17/2023 11:28 AM EDT [place] [address] RBC 4.57 3.85 - 5.15 M/uL 09/17/2023 11:28 AM EDT [place] [address] HGB 13.7 12.0 - 15.3 g/dL 09/17/2023 11:28 AM EDT [place] [address] HCT 41.6 36.0 - 45.2 % 09/17/2023 11:28 AM EDT [place] [address] MCV 91.0 81.5 - 97.5 fL 09/17/2023 11:[address] MCH 30.0 27.0 - 34.0 pg 09/17/2023 11:28 AM EDT [place] [address] MCHC 32.9 32.0 - 36.0 g/dL 09/17/2023 11:28 AM EDT [place] [address] RDW 14.6 11.5 - 15.5 % 09/17/2023 11:[address] PLT 259 140 - 400 K/uL 09/17/2023 11:[address] EDT [address] MPV 10.3 6.6 - 11.1 fL 09/17/2023 11:28 AM EDT [place] [address] Blood Venous blood specimen / Unknown Venipuncture / Unknown 09/17/2023 11:17 AM EDT 09/17/2023 11:17 AM EDT Kush Linton MD LAB BLOOD ORDERABLES [address] [place], [place] [phone] * (ABNORMAL) COMPREHENSIVE METABOLIC PANEL (09/17/2023 11:17 AM EDT) BUN 23(H) 6 - 20 mg/dL 09/17/2023 12:[address] Creatinine 1.3(H) 0.5 - 1.0 mg/dL 09/17/2023 12:[address] Estimated Glomerular Filtration Rate 40(L) >=60 mL/min 09/17/2023 12:[address] Comment:eGFR is calculated b ased on the CKD-EPI 2020 equation Sodium 140 135 - 146 mmol/L 09/17/2023 12:[address] Potassium 3.8 3.5 - 5.1 mmol/L 09/17/2023 12:[address] Chloride 101 98 - 107 mmol/L 09/17/2023 12:[address] CO2 25 22 - 32 mmol/L 09/17/2023 12:[address] Anion Gap 14 7 - 15 mmol/L 09/17/2023 12:[address] Glucose 132(H) 70 - 120 mg/dL 09/17/2023 12:[address] Albumin 4.2 3.8 - 5.0 g/dL 09/17/2023 12:[address] AST 29 10 - 35 U/L 09/17/2023 12:[address] Alkaline Phosphatase 231(H) 35 - 130 U/L 09/17/2023 12:[address] Bilirubin, Total 1.1 <=1.2 mg/dL 09/17/2023 12:[address] Calcium 10.7(H) 8.4 - 10.2 mg/dL 09/17/2023 12:07 PM EDT [facility] [place] 56 Protein 6.2 6.0 - 8.3 g/dL 09/17/2023 12:07 PM EDT [facility] [place] 56 ALT 27 10 - 35 U/L 09/17/2023 12:07 PM EDT [facility] 56 Blood Venous blood specimen / Unknown Venipuncture / Unknown 09/17/2023 11:17 AM EDT 09/17/2023 11:17 AM EDT Kush Linton MD LAB BLOOD ORDERABLES [facility] 56- 200 [facility] [place] [address] documented in this encounter Visit Diagnoses Diagnosis [...] and were consensually agreed upon. Care Teams Market Research Interviewer Relationship Specialty Start Date End Date Hank Ivey DO 200 [facility] [place] [address] PCP - General Family Medicine 10/07/16 documented as of this encounter
--- OUTSIDE RECORDS SUMMARY | 2023-09-27 13:11 | External Medical Summary | Summary of Care ---
Author Name Unknown Organization [facility] Address [address] [place] [address] Phone [phone] Care Team Providers Care Glazier Apprentice Name Role Phone Hank Ivey DO Primary Care Provider [phone] Reason for Visit * Reason Onset Date Comments Scheduling 09/18/2023 Liver lesion bio psy Encounter Details Date Type Department Care Team ([facility] Contact Info) Description 09/18/2023 Telephone Radiology, [address] [address] Veronica Quarles I, ERVIN Scheduling (Liver lesion biopsy) Allergies Active Allergy Reactions Criticality Noted Date Comments [place] Oil 02/27/2021 Other reaction(s): ANAPHYLACTIC Ciprofloxacin Rash [...] mRNA, LNP-s, No Pre serve, 2-Dose Series (InGaugeIt) 08/26/2021,03/29/2021,07/28/2020,07/02 COVID-19, MRNA-LNP, 23-24, P F, 30 MCG/0.3 mL, 12 YRS AND ABOVE, IM ([facility]) 04/07/2023 Covid-19, Mrna, Lnp-s, Pf, B ivalent, 30 Mcg, IM, 12 yrs and above (InGaugeIt) 02/14/2022 Pneumococcal Conjugate Vacc, 13 Valent (Prevnar) [...] encounter Miscellaneous Notes * Telephone Encounter - Veronica Quarles RN - 09/18/2023 8:39 AM EDT Spoke with patient to schedule liver lesion biopsy for 09-[address]Conway Schneider performing. Eating, drinking, check in, and arrival time instructions reviewed with patient. Patient aware to hold eliquis starting on and obtain pt/inr as ordered. Order for pt/inr placed. Patient identified by: name and date of Person taught: Patient METHOD: Lecture-telephone interview PATIENT INSTRUCTIONS GIVEN: - Medication Instructions Reviewed - NPO Instructions Reviewed, pt to stop eating 8 hours prior to procedure and stop drinking 2 hoursprior to procedure. - Machine Filler recommended Location and check-in instructions - Hold anti-coagulant as instructed - Obtain blood work as ordered Verbalizes understanding of education: Yes Procedure date at time of Imaging Encounter: 09-21 What procedure is patient having? liver lesion biopsy Laterality confirmed as Not Applicable Does the patient have a yellow bar? did not The Patient was given the opportunity to ask questions concerning the procedure. Signature: Veronica Quarles RN 09/18/2023 documented in this encounter Plan of Treatment Upcoming Encounters Date Type Department Care Team (Latest Contact Info) Description 09/18/2023 10:30 AM EDT Hem/Onc Treatment Hematology/Oncolog y Treatment, [place] 200 [facility] [place] [address] Daya, Chair 1 Hem Onc [address] [place] [phone] 09/21/2023 10:30 AM EDT Immunization/Injectio n Hematology/Oncolog y Treatment, [address] [place] [address] Nurse, Med 4 200 [facility] [place] [address] 09/21/2023 1:00 PM EDT Pharmacy Pharmacy Hematology Oncology [facility], [address] [address] [facility] Hem/Onc [address] [place] [address] 09/29/2023 1:00 PM EDT Office Visit Family Practice [facility] [address] [facility] [place] [address] Hank Ivey, DO [address] [facility] [place] [address] 09/30/2023 12:30 PM EDT Office Visit Gynecology/Oncolog y, [place] [address] [place] [address] Ama Ruano PA-C [facility] [place] [address] 10/01/2023 8:30 AM EDT Appointment MRI, [address] [address] 10/01/2023 10:00 AM EDT Documentation Radiation Oncology, [place] [address] [place] [address] Prakash Vyas MD [address] [place] [address] 10/06/2023 1:00 PM EDT Immunization/Injectio n Hematology/Oncolog y Treatment, [place] [address] [facility] [phone] Nurse, Med 200 [facility] [place] [address] 10/21/2023 8:30 AM EDT Office Visit Cardiology, [facility] [address] [facility] [place] [address] MarquesSarah mendes CRNP 132 [facility] [place] [address] 10/27/2023 3:00 PM EDT Office Visit Nephrology, [facility] 200 [facility] [place] [address] Zemaitis, Shirley Bravo PA-C 200 [facility] [place] [address] 11/09/2023 10:00 AM EDT Nurse Only Ancillary [facility] [place] [address] [facility] [place] [address] Im, Nurse Annual Wellness [facility] 200 [facility] [place] [address] 11/20/2023 9:30 AM EDT Hospital Encounter ENDO [facility], Endoscopy Room [facility] [address] [place] [phone] Rogelio Yeh MD [address] [place] [address] 11/20/2023 9:30 AM EDT - 11/20/2023 10:00 AM EDT Surgery ENDO [facility], Endoscopy Room [facility] [address] [place] [phone] Rogelio Yeh MD [address] [place] [address] COLONOSCOPY FLEXIBLE PROXIMAL DIAGNOSTIC 11/23/2023 9:20 AM EDT Office Visit Family [facility] [address] [facility] [place] [address] Esperanza Jeffery, DO 200 [facility] [place] [address] 01/28/2024 11:00 AM EDT Office Visit Otolaryngology/Hea d & Neck/Facial Plastic Surgery [address] [place] [address] Tyrone Tenorio MD [address] [place] [address] 03/03/2024 11:00 AM EDT Office Visit Rheumatology [facility] [address] [place] [address] Avinash Rasmussen MD [address] [place], [place] [address] Scheduled Orders Name Type Priority Associated Diagnoses Orde r Schedule PT INR Lab Routine History of malignant neoplasm of upper lobe bronchus or lung Expected: 09/18/2023, Expires: 09/17/2024 Scheduled Procedures Name Priority Associated [...] Additional history exists CKD HGB USE SMARTSET 89061 09/16/202409/16, 09/17/2023, 08/20/2023, Additional history exists CKD PHOS USE SMARTSET 89798 09/16/2024 09/17/2023, 07/28/2022, 06/24/2021, Additional history exists [...] D LEVEL ONCE IN A LIFETIME-USE SMARTSET# 46560 Completed 05/11/2023, 07/28/2022, 06/24/2021, Additional history exists [...] this encounter Medical Devices Implanted Type Area Web Designer Device Identifier Shelf Expiration Date Model / Serial / Lot 7fr X 24cm Bard Inlay [place] Ureteral Stent Implanted:Qty : 1 on 04/04/2014 by Sawyer Parson MD at OR [facility] Left: Ureter INACTIVE [employer] 10/01/2018 [id number] / / [id number] Port Power Mri W/8fr Cath - [id number] Implanted:Qty : 1 on 05/23/2015 by Nay Hernandez MD at OR [facility] Right: Subclavian CR BARD : PERIPHERAL VASCULAR 08/29/2016 [id number] / / [id number] documented as of this encounter Visit Diagnoses Diagnosis History of malignant neoplasm of upper lobe bronchus or lung- Primary Personal history of malignant neoplasm of bronchus [...] and were consensually agreed upon. Care Teams Glazier Apprentice Relationship Specialty Start Date End Date Hank Ivey DO [address] [place] [address] [place] [address] PCP - General Family Medicine 10/07/16 documented as of this encounter
--- OUTSIDE RECORDS SUMMARY | 2023-09-27 13:11 | External Medical Summary | Summary of Care ---
Author Name Unknown Organization [facility] Address [address] [place] [address] Phone [phone] Care Team Providers Care Livestock Slaughterer Name Role Phone Hank Ivey Primary Care Provider [phone] Reason for Visit * Reason Onset Date Comments Medication Question 09/17/2023 Encounter Details Date Type Department Care Team ([facility] Contact Info) Description 09/17/2023 Telephone Hematology/Oncology [facility] [address] [place] [phone] Kush Linton MD [address] [place] [address] Medication Question Allergies Active Allergy Reactions Criticality Noted Date Comments [place] Oil 02/27/2021 Other reaction(s): ANAPHYLACTIC Ciprofloxacin Rash [...] mRNA, LNP-s, No Pre serve, 2-Dose Series (Faculte) 08/26/2021,03/29/2021,07/28/2020,07/02 COVID-19, MRNA-LNP, 23-24, P F, 30 MCG/0.3 mL, 12 YRS AND ABOVE, IM (Cubresa-Comirnat) 04/07/2023 Covid-19, Mrna, Lnp-s, Pf, B ivalent, [...] Telephone Encounter - Krystal Ventura RN - 09/17/2023 2:49 PM EDT Referral entered. * Telephone Encounter - Krystal Ventura RN - 09/17/2023 2:[address] Linton: "Blood workup done on 09/17/2023: -BUN/Creat: 20/1.0, Calcium 10.7. -alkaline phosphatase 231. Would like to give her intravenous hydration 1 IV saline over 2 hours and IV Zometa 4 mg x 1 dose for hypercalcemia Would like to repeat CBCD, comprehensive metabolic panel early next week." Reviewed with Dr Linton- patient should hold off on ativan until he gets ammonia level back. Called patients daughter. She verbalized understanding of ativan directions, agreeable to bringing her mother in for hydration/ zometa tomorrow. Accepted appt for tomorrow at 10:30am. She will also have her mom repeat labs early next week. [place] plan built and routed for signature. Message sent to STAT precert group to check for auth. * Telephone Encounter - Sarah Sr OSA - 09/17/2023 2:06 PM EDT Pts daughter Valeri is asking if she should hold off on taking ativan or continue taking it. Valeri could not remember what told her [phone] documented in this encounter Plan of Treatment Upcoming Encounters Date Type Department Care Team (Latest Contact Info) Description 09/18/2023 10:30 AM EDT Hem/Onc Treatment Hematology/Oncolog y Treatment, [place] [facility] [phone] Daya, Chair 1 Hem Onc [place] [address] [place] [address] 09/21/2023 10:30 AM EDT Immunization/Injectio n Hematology/Oncolog y Treatment, [place] 200 [facility] [place] [phone] Nurse, Med 4 [address] [place] [address] 09/29/2023 1:00 PM EDT Office Visit Family Practice [facility]a [place] [address] [place] [address] Hank Ivey DO [address] [facility] [place] [address] 09/30/2023 12:30 PM EDT Office Visit Gynecology/Oncolog y, [place] [address], [place] [phone] Ama Ruano PA-C [address] [place] [address] 10/01/2023 8:30 AM EDT Appointment MRI, [place] [address] [place] [address] 10/01/2023 10:00 AM EDT Documentation Radiation Oncology, [place] [address] [place] [address] Prakash Vyas MD [address] [place] [address] 10/06/2023 1:00 PM EDT Immunization/Injectio n Hematology/Oncolog y Treatment, [place] [address] [facility] [address] [place] [phone] Nurse, Med 200 [facility] [place] [address] 10/21/2023 8:30 AM EDT Office Visit Cardiology, [facility] 132 [facility] [place] [address] Sarah Mohan CRNP [facility] [place] [address] 10/27/2023 3:00 PM EDT Office Visit Nephrology, [facility] 200 [facility] [place] [address] ZeShirley suazo PA-C 200 [facility] [place] [address] 11/09/2023 10:00 AM EDT Nurse Only Ancillary [facility] [place] [address] [facility] [place] [address] Im, Nurse Annual Wellness [facility] 200 [facility] [place] [address] 11/20/2023 9:30 AM EDT Hospital Encounter ENDO [facility], Endoscopy Room [facility] 132 [facility] [place] [phone] Rogelio Yeh MD [address] [place] [address] 11/20/2023 9:30 AM EDT - 11/20/2023 10:00 AM EDT Surgery ENDO [facility], Endoscopy Room [facility] [address] [place] [phone] Rogelio Yeh MD [address] [place] [address] COLONOSCOPY FLEXIBLE PROXIMAL DIAGNOSTIC 11/23/2023 9:20 AM EDT Office Visit [facility] 200 [facility] [place] [address] Esperanza Jeffery DO [address] [facility] [address] 01/28/2024 11:00 AM EDT Office Visit Otolaryngology/Hea d & Neck/Facial Plastic Surgery [address] [place] [address] Tyrone Tenorio MD [address] [place] [address] 03/03/2024 11:00 AM EDT Office Visit Rheumatology [place] [address] [facility] [place], [place] [address] Avinash Rasmussen MD [facility] [place], [place] [address] Scheduled Orders Name Type Priority Associated Diagnoses Orde r Schedule CBC WITH WBC DIFFERENTIAL Lab STAT 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) 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) EGFR-related lung cancer (HCC) Expected: 09/21/2023 (Approximate), Expires: 09/16/2024 COMPREHENSIVE METABOLIC PANEL Lab STAT 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) 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) EGFR-related lung cancer (HCC) Expected: 09/21/2023 (Approximate), Expires: 09/16/2024 Scheduled Procedures Name Priority Associated Diagnoses Date/Ti me COLONOSCOPY FLEXIBLE PROXIMAL DIAGNOSTIC Recall History of colon polyps Tubular adenoma 11/20/2023 9:30 AM EDT Health Maintenance Due Date Last Done Comments Colonoscopy 04/23/2023 04/23/2020, 04/04, 04/29/2016, Additional history exists Albumin/Creatinine Ratio 05/12/2023 023, 02/05/2021, 01/06/2020, Additional history exists Depression Screening 11/01/2023 10/31/2022 GFR 03/19/2024 09/17/2023, 08/02, 05/11/2023, Additional history exists CKD HGB USE SMARTSET 47439 09/16/202409/16, 09/17/2023, 08/20/2023, Additional history exists CKD PHOS USE SMARTSET 95489 09/16/2024 09/17/2023, 07/28/2022, 06/24/2021, Additional history exists [...] D LEVEL ONCE IN A LIFETIME-USE SMARTSET# 75985 Completed 05/11/2023, 07/28/2022, 06/24/2021, Additional history exists [...] this encounter Medical Devices Implanted Type Area Chief Client Officer Device Identifier Shelf Expiration Date Model / Serial / Lot 7fr X 24cm Bard Inlay [place] Ureteral Stent Implanted:Qty : 1 on 04/04/2014 by Sawyer Parson MD at OR [facility] Left: Ureter INACTIVE CR BARD INC 10/01/2018 [id number] / / [id number] Port Power Mri W/8fr Cath - [id number] Implanted:Qty : 1 on 05/23/2015 by Nay Hernandez MD at OR [facility] Right: Subclavian CR BARD : PERIPHERAL VASCULAR 08/29/2016 [id number] / / [id number] documented as of this encounter Visit Diagnoses Diagnosis 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)- Primary Secondary malignant neoplasm of bone and bone marrow 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) Secondary malignant neoplasm of liver EGFR-related lung cancer (HCC) History of colon polyps Personal history of [...] and were consensually agreed upon. Care Teams Livestock Slaughterer Relationship Specialty Start Date End Date Hank Ivey DO [address] [place] [address] PCP - General Family Medicine 10/07/16 documented as of this encounter
--- OUTSIDE RECORDS SUMMARY | 2023-09-27 13:11 | External Medical Summary | Summary of Care ---
Author Name Unknown Organization [facility] Address [address] [place] [address] Phone [phone] Care Team Providers Care Wood Room Supervisor Name Role Phone Hank Ivey DO Primary Care Provider Encounter Details Date Type Department Care Team ([facility] st Contact Info) Description 09/17/2023 Orders Only Hematology/Oncology [facility] 200 [place] [phone] Kush Linton MD [address] [place] [address] EGFR-related lung cancer (HCC)*; 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); 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); Hypercalcemia Allergies Active Allergy Reactions Criticality Noted Date Comments [place] Oil 02/27/2021 Other reaction(s): ANAPHYLACTIC Ciprofloxacin Rash [...] mRNA, LNP-s, No Pre serve, 2-Dose Series ([employer]Me VIdeoke) 08/26/2021,03/29/2021,07/28/2020,07/02 COVID-19, MRNA-LNP, 23-24, P F, 30 MCG/0.3 mL, 12 YRS AND ABOVE, IM (Sangon [employer]otech-Comirnaty) 04/07/2023 Covid-19, Mrna, Lnp-s, Pf, B ivalent, [...] Notes * Kush Linton MD - 09/17/2023 2:15 PM EDT Blood workup done on 09/17/2023: -BUN/Creat: 20/1.0, Calcium 10.7. -alkaline phosphatase 231. Would like to give her intravenous hydration 1 IV saline over 2 hours and IV Zometa 4 mg x 1 dose for hypercalcemia Would like to repeat CBCD, comprehensive metabolic panel early next week. documented in this encounter Plan of Treatment Upcoming Encounters Date Type Department Care Team (Latest Contact Info) Description 09/18/2023 10:30 AM EDT Hem/Onc Treatment Hematology/Oncolog y Treatment, [place] [address] [place] [address] Park, Chair 1 Hem Onc [place] 200 [facility] [place], [place] [address] 09/21/2023 10:30 AM EDT Immunization/Injectio n Hematology/Oncolog y Treatment, [place] 200 [facility], [place] [phone] Nurse, Med 4 200 [facility] [address] [place], [place] [phone] 09/29/2023 1:00 PM EDT Office Visit Family Practice [facility] 200 [facility] [place] [phone] Hank Ivey, DO 200 [facility] [address] [place] [address] 09/30/2023 12:30 PM EDT Office Visit Gynecology/Oncolog y, [place] [address] [place] [address] Ama Ruano PA-C [address] [place] [address] 10/01/2023 8:30 AM EDT Appointment MRI, [place] [address], [place] [phone] 10/01/2023 10:00 AM EDT Documentation Radiation Oncology, [place] [address] [place] [address] Prakash Vyas MD [address] [place], [place] [phone] 10/06/2023 1:00 PM EDT Immunization/Injectio n Hematology/Oncolog y Treatment, [place] 200 [facility], [place] [phone] Nurse, Med 4 200 [facility] [address] [place] [phone] 10/21/2023 8:30 AM EDT Office Visit Cardiology, [facility] 132 [facility] [place] [address] Sarah Mohan CRNP [address] [place] [address] 10/27/2023 3:00 PM EDT Office Visit Nephrology, [facility] 200 [facility] [place] [address] Shirley Alicea PA-C 200 [facility] [place] [address] 11/09/2023 10:00 AM EDT Nurse Only Ancillary [employer] 200 [facility] [place] [address] Im, Nurse Annual Wellness [facility] 200 [facility] [place] [address] 11/20/2023 9:30 AM EDT Hospital Encounter ENDO [facility], Endoscopy Room [facility] [address] [place] [phone] Rogelio Yeh MD [address] [place] [address] 11/20/2023 9:30 AM EDT - 11/20/2023 10:00 AM EDT Surgery ENDO [facility], Endoscopy Room [facility] [address] [place] [phone] Rogelio Yeh MD [address] [place] [address] COLONOSCOPY FLEXIBLE PROXIMAL DIAGNOSTIC 11/23/2023 9:20 AM EDT [facility] 200 [facility] [place] [address] Esperanza Jeffery DO 200 [facility] [place] [address] 01/28/2024 11:00 AM EDT Office Visit Otolaryngology/Hea d & Neck/Facial Plastic Surgery [address] [facility] [place] [address] Tyrone Tenorio MD [address] [place] [address] 03/03/2024 11:00 AM EDT Office Visit Rheumatology [facility] [address] [place] [address] Avinash Rasmussen MD [address] [employer] [place] [address] Scheduled Procedures Name Priority Associated Diagnoses Date/Ti me COLONOSCOPY FLEXIBLE PROXIMAL DIAGNOSTIC Recall History of colon polyps Tubular adenoma 11/20/2023 9:30 AM EDT Health Maintenance Due Date Last Done Comments Colonoscopy 04/23/2023 04/23/2020, 04/04, 04/29/2016, Additional history exists Albumin/Creatinine Ratio 05/12/2023 023, 02/05/2021, 01/06/2020, Additional history exists CKD PHOS USE SMARTSET 41102 07/29/2023 07/28/2022, 06/24/2021, 05/10/2019, Additional history exists Depression Screening 11/01/2023 10/31/2022 GFR 03/19/2024 09/17/2023, 08/02, 05/11/2023, Additional history exists CKD HGB USE SMARTSET 01276 09/16/202409/16, 09/17/2023, 08/20/2023, Additional history exists DTaP,Tdap,and Td Vaccines (2 [...] D LEVEL ONCE IN A LIFETIME-USE SMARTSET# 86001 Completed 05/11/2023, 07/28/2022, 06/24/2021, Additional history exists [...] this encounter Medical Devices Implanted Type Area Tumbler Machine Operator Helper Device Identifier Shelf Expiration Date Model / Serial / Lot 7fr X 24cm Bard Inlay [place] Ureteral Stent Implanted:Qty : 1 on 04/04/2014 by Sawyer Parson MD at OR [facility] Left: Ureter INACTIVE CR BARD INC 10/01/2018 [id number] / / [id number] Port Power Mri W/8fr Cath - [id number] Implanted:Qty : 1 on 05/23/2015 by Nay Hernandez MD at OR [facility] Right: Subclavian CR BARD : PERIPHERAL VASCULAR 08/29/2016 [id number] / / [id number] documented as of this encounter Visit Diagnoses Diagnosis EGFR-related lung cancer (HCC)- Primary 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) Secondary malignant neoplasm of liver 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) Secondary malignant neoplasm of bone and bone marrow Hypercalcemia History of colon polyps Personal history of [...] and were consensually agreed upon. Care Teams Wood Room Supervisor Relationship Specialty Start Date End Date Hank Ivey DO [address] [place] [address] [place] [address] PCP - General Family Medicine 10/07/16 documented as of this encounter
--- OUTSIDE RECORDS SUMMARY | 2023-09-27 13:11 | External Medical Summary | Summary of Care ---
Author Name Unknown Organization [facility] Address [address] [place] [address] Phone [phone] Care Team Providers Care Warper Creeler Name Role Phone BladeHank goodman Primary Care Provider Reason for Visit * Reason Comments Outpatient Testing Encounter Details Date Type Department Care Team ([facility] st Contact Info) Description 09/17/2023 11:50 AM EDT Laboratory [facility] [address] [place] [address] [place], Lab Scen[place] [address] [place] [address] Personal history of malignant neoplasm of breast; EGFR-related lung cancer (HCC); 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 Stage 3 chronic [...] mRNA, LNP-s, No Pre serve, 2-Dose Series ([employer]) 08/26/2021,03/29/2021,07/28/2020,07/02 COVID-19, MRNA-LNP, 23-24, P F, 30 MCG/0.3 mL, 12 YRS AND ABOVE, IM (AYLIEN-Comirnat) 04/07/2023 Covid-19, Mrna, Lnp-s, Pf, B ivalent, 30 Mcg, IM, 12 yrs and above ([employer]) 02/14/2022 Pneumococcal Conjugate Vacc, 13 Valent [...] 1:00 PM EDT Office Visit Family Practice [facility] 200 [place] [address] Hank Ivey, DO 200 [place] [address] 09/30/2023 12:30 PM EDT Office Visit Gynecology/Oncolog y, [place] [address] [place] [address] Ama Ruano PA-C [address] [place] [address] 10/01/2023 8:30 AM EDT Appointment MRI, [place] [address] [place] [address] 10/01/2023 10:00 AM EDT Documentation Radiation Oncology, [place] [address] [place] [address] Prakash Vyas MD [address] [place] [address] 10/06/2023 1:00 PM EDT Immunization/Injectio n Hematology/Oncolog y Treatment, [place] [address] [place] [phone] Nurse, Med [address] [facility] [place] [address] 10/21/2023 8:30 AM EDT Office Visit Cardiology, [facility] [address] [place] [address] MarquesSarah mendes CRNP [address] [place] [address] 10/27/2023 3:00 PM EDT Office Visit Nephrology, [facility] 200 [facility] [place] [address] ZeShirley suazo PA-C 200 [facility] [place] [address] 11/09/2023 10:00 AM EDT Nurse Only Ancillary [facility] [place] [facility] [place] [address] Im, Nurse Annual Wellness [facility] 200 [facility] [place] [address] 11/20/2023 9:30 AM EDT Hospital Encounter ENDO [facility], Endoscopy Room [facility] [address] [place] [phone] Rogelio Yeh MD [address] [place] [address] 11/20/2023 9:30 AM EDT - 11/20/2023 10:00 AM EDT Surgery ENDO [facility], Endoscopy Room [facility] [address] [place] [phone] Rogelio Yeh MD [address] [place] [address] COLONOSCOPY FLEXIBLE PROXIMAL DIAGNOSTIC 11/23/2023 9:20 AM EDT Office Visit Family Practice [facility] 200 [facility] [place], [place] [address] Esperanza Jeffery DO 200 [facility] [place] [address] 01/28/2024 11:00 AM EDT Office Visit Otolaryngology/Hea d & Neck/Facial Plastic Surgery [address] [place] [address] Tyrone Tenorio MD [address] [place] [address] 03/03/2024 11:00 AM EDT Office Visit Rheumatology [facility] [address] [place] [address] Avinash Rasmussen MD [address] [employer] [place] [address] Pending Results Name Type Priority Associated Diagnoses Date /Time [place]IA Lab Routine Personal history of malignant neoplasm of breast 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) 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) 09/17/2023 11:17 AM EDT Scheduled Procedures Name Priority Associated Diagnoses Date/Ti me COLONOSCOPY FLEXIBLE PROXIMAL DIAGNOSTIC Recall History of colon polyps Tubular adenoma 11/20/2023 9:30 AM EDT Health Maintenance Due Date Last Done Comments Colonoscopy 04/23/2023 04/23/2020, 04/04, 04/29/2016, Additional history exists Albumin/Creatinine Ratio 05/12/2023 023, 02/05/2021, 01/06/2020, Additional history exists CKD PHOS USE SMARTSET 51108 07/29/2023 07/28/2022, 06/24/2021, 05/10/2019, Additional history exists Depression Screening 11/01/2023 10/31/2022 GFR 02/19/2024 08/20/2023, /0 12/2023, 01/09/2023, Additional history exists CKD HGB USE SMARTSET 80454 09/16/202409/16, 09/17/2023, 08/20/2023, Additional history exists DTaP,Tdap,and [...] D LEVEL ONCE IN A LIFETIME-USE SMARTSET# 65311 Completed 05/11/2023, 07/28/2022, 06/24/2021, Additional history exists [...] this encounter Medical Devices Implanted Type Area Put In Beat Adjuster Device Identifier Shelf Expiration Date Model / Serial / Lot 7fr X 24cm Bard Inlay [place] Ureteral Stent Implanted:Qty : 1 on 04/04/2014 by Sawyer Parson MD at OR [facility] Left: Ureter INACTIVE CR [employer]ARD INC 10/01/2018 [id number] / / [id number] Port Power Mri W/8fr Cath - [id number] Implanted:Qty : 1 on 05/23/2015 by Nay Hernandez MD at OR [facility] Right: Subclavian CR BARD : PERIPHERAL VASCULAR 08/29/2016 [id number] / / [id number] documented as of this encounter Visit Diagnoses Diagnosis Personal history of malignant neoplasm of breast [...] and were consensually agreed upon. Care Teams Warper Creeler Relationship Specialty Start Date End Date Hank Ivey DO [address] [place] [address] PCP - General Family Medicine 10/07/16 documented as of this encounter
--- OUTSIDE RECORDS SUMMARY | 2023-09-27 13:11 | External Medical Summary ---
Author Name Unknown Address Unknown Organization [facility] [address] [place] [address] Laboratory Report Ordering Provider Test Date Status FROILAN VENEGAS 09/17/2023 11:17:27 Final Observation Date Value Abnormality Reference (Units ) Status BUN 09/17/2023 11:17:27 23 Above high normal 6-20 (mg/dL) Final Creatinine 09/17/2023 11:17:27 1.3 Above high normal 0.5-1.0 (mg/dL) Final Glomerular filtration rate/1.73 sq M.predicted [Volume Rate/Area] in Serum, Plasma or Blood by Creatinine-based formula (CKD-EPI) 09/17/2023 11:17:27 40 Below low normal >=60 (mL/min) Final eGFR is calculated based on the CKD-EPI 2020 equation Sodium 09/17/2023 11:17:27 140 135-146 (m mol/L) Final Potassium 09/17/2023 11:17:27 3.8 3.5-5.1 (m mol/L) Final Cl 09/17/2023 11:17:27 101 98-107 (mm ol/L) Final CO2 09/17/2023 11:17:27 25 22-32 (mmo l/L) Final Anion gap 09/17/2023 11:17:27 14 7-15 (mmol /L) Final Glucose 09/17/2023 11:17:27 132 Above high normal 70 -120 (mg/dL) Final Albumin 09/17/2023 11:17:27 4.2 3.8-5.0 (g /dL) Final AST (Aspartate aminotransferase) 09/17/2023 11:17:27 29 10-35 (U/L) Fin al Alk Phos 09/17/2023 11:17:27 231 Above high normal 35 -130 (U/L) Final Bilirubin, Total 09/17/2023 11:17:27 1.1 <=1 .2 (mg/dL) Final Calcium 09/17/2023 11:17:27 10.7 Above high normal 8. 4-10.2 (mg/dL) Final Protein 09/17/2023 11:17:27 6.2 6.0-8.3 (g /dL) Final ALT (Alanine aminotransferase) 09/17/2023 11:17:27 27 10-35 (U/L) Ismael sue Performing Location [facility] [address] [place] [address]
--- OUTSIDE RECORDS SUMMARY | 2023-09-27 13:11 | External Medical Summary | Summary of Care ---
Author Name Unknown Organization [facility] Address [address] [place] [address] Phone [phone] Care Team Providers Care Practice Performance Manager Name Role Phone Hank Ivey Primary Care Provider [phone] Reason for Visit * Reason Onset Date Comments Appointment 09/17/2023 Encounter Details Date Type Department Care Team ([facility] Contact Info) Description 09/17/2023 Telephone Hematology/Oncology [facility] [address] [place] [phone] Kush Linton MD [address] [place] [address] Appointment Allergies Active Allergy Reactions Criticality Noted Date Comments [place] Oil 02/27/2021 Other reaction(s): ANAPHYLACTIC Ciprofloxacin Rash [...] mRNA, LNP-s, No Pre serve, 2-Dose Series (Zooppa) 08/26/2021,03/29/2021,07/28/2020,07/02 COVID-19, MRNA-LNP, 23-24, P F, 30 MCG/0.3 mL, 12 YRS AND ABOVE, IM (DesignMyNight-Comirnat) 04/07/2023 Covid-19, Mrna, Lnp-s, Pf, B ivalent, [...] Encounter - Sarah Sr OSA - 09/17/2023 2:10 PM EDT Request Summary [[id number]] Procedure: IR BIOPSY Status: Needs Scheduling Requested appt date: Authorizing: Kush Linton MD in HEM/ONC [facility] Referral: [id number] (Pending Review) Priority: Routine Diagnosis: Personal history of malignant neoplasm of breast [Z85.3] EGFR-related lung cancer (HCC) [C34.90] 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) [C78.7] 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) [C79.51] Order Specific Questions Location liver lesion Lab Tests for specimen(s) collected routine histopathology Reason for Procedure Recurrent lung cancer, previous history of breast cancer and uterine cancer, now she has 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 Would like to have biopsy of the liver lesion. Where Will The Procedure Be Performed? [facility] How Soon Should This Procedure Be Scheduled? 1 Week or Less Specimen collection? Request History Action Date and Time User Details Request Created 09/17/2023 12:52 Kush Linton MD Appointment Encounter, Details Workqueue Summary Current Workqueues Entry Current Tab RADIANT SOR IR TECH [3908] RADIANT IR ORDERS [4714] RADIANT SOR IR TECH [facility] [4810] 09/17/2023 12:52 09/17/2023 12:52 09/17/2023 12:52 Active Active Active Details Details Details documented in this encounter Plan of Treatment Upcoming Encounters Date Type Department Care Team (Latest Contact Info) Description 09/18/2023 10:30 AM EDT Hem/Onc Treatment Hematology/Oncolog y Treatment, [address] [phone] Daya, Chair 1 Hem Onc [address] [place] [address] 09/21/2023 10:30 AM EDT Immunization/Injectio n Hematology/Oncolog y Treatment, [place] [address] [place] [phone] Nurse, Med [address] [place] [address] 09/29/2023 1:00 PM EDT Office Visit Family Practice [facility] [address] [place] [address] Hank Ivey, DO [address] [place] [address] 09/30/2023 12:30 PM EDT Office Visit Gynecology/Oncolog y, [address] [phone] Ama Ruano PA-C [address] [place] [address] 10/01/2023 8:30 AM EDT Appointment MRI, [place] [address] [place] [address] 10/01/2023 10:00 AM EDT Documentation Radiation Oncology, [place] [address] [place] [address] Prakash Vyas MD [address] [place] [address] 10/06/2023 1:00 PM EDT Immunization/Injectio n Hematology/Oncolog y Treatment, [place] [address] [place] [phone] Nurse, Med [address] [facility] [place] [address] 10/21/2023 8:30 AM EDT Office Visit Cardiology, [facility] [address] [facility] [place] [address] Sarah Mohna CRNP [address] [facility] [place] [address] 10/27/2023 3:00 PM EDT Office Visit Nephrology, [facility] [address] [facility] [place] [address] ZemaShirley newman PA-C [address] [facility] [place] [address] 11/09/2023 10:00 AM EDT Nurse Only Ancillary [facility] [place] [address] [facility] [place] [address] Im, Nurse Annual Wellness [facility] [address] [facility] [place] [address] 11/20/2023 9:30 AM EDT Hospital Encounter ENDO [facility], [facility] [place] [phone] Rogelio Yeh MD [address] [facility] [place] [address] 11/20/2023 9:30 AM EDT - 11/20/2023 10:00 AM EDT Surgery ENDO [facility], Endoscopy Room [facility] [address] [place] [phone] Rogelio Yeh MD [address] [place] [address] COLONOSCOPY FLEXIBLE PROXIMAL DIAGNOSTIC 11/23/2023 9:20 AM EDT Office Visit Family Practice [facility] [address] [facility] [place] [address] Esperanza Jeffery, [address] [facility] [place] [address] 01/28/2024 11:00 AM EDT Office Visit Otolaryngology/Hea d & Neck/Facial Plastic Surgery [address] [place] [address] Tyrone Tneorio MD [address] [place] [address] 03/03/2024 11:00 AM EDT Office Visit Rheumatology [facility] [address] [facility] [place] [address] Avinash Rasmussen MD [address] [facility] [place], [place] [address] Scheduled Procedures Name Priority Associated Diagnoses Date/Ti me COLONOSCOPY FLEXIBLE PROXIMAL DIAGNOSTIC Recall History of colon polyps Tubular adenoma 11/20/2023 9:30 AM EDT Health Maintenance Due Date Last Done Comments Colonoscopy 04/23/2023 04/23/2020, 04/04, 04/29/2016, Additional history exists Albumin/Creatinine Ratio 05/12/2023 023, 02/05/2021, 01/06/2020, Additional history exists Depression Screening 11/01/2023 10/31/2022 GFR 03/19/2024 09/17/2023, 0412/2023, 05/11/2023, Additional history exists CKD HGB USE SMARTSET 57078 09/16/202409/16, 09/17/2023, 08/20/2023, Additional history exists CKD PHOS USE SMARTSET 25504 09/16/2024 09/17/2023, 07/28/2022, 06/24/2021, Additional history exists [...] D LEVEL ONCE IN A LIFETIME-USE SMARTSET# 70643 Completed 05/11/2023, 07/28/2022, 06/24/2021, Additional history exists [...] this encounter Medical Devices Implanted Type Area Call Center Dispatcher Device Identifier Shelf Expiration Date Model / Serial / Lot 7fr X 24cm Bard Inlay [place] Ureteral Stent Implanted:Qty : 1 on 04/04/2014 by Sawyer Parson MD at OR [facility] Left: Ureter INACTIVE CR [employer] 10/01/2018 [id number] / / [id number] Port Power Mri W/8fr Cath - [id number] Implanted:Qty : 1 on 05/23/2015 by Nay Hernandez MD at OR [facility] Right: Subclavian CR BARD : PERIPHERAL VASCULAR 08/29/2016 [id number] / / [id number] documented as of this encounter Advance Directives [...] and were consensually agreed upon. Care Teams Practice Performance Manager Relationship Specialty Start Date End Date Hank Ivey DO [address] [place] [address] PCP - General Family Medicine 10/07/16 documented as of this encounter
--- OUTSIDE RECORDS SUMMARY | 2023-09-27 13:11 | External Medical Summary ---
Author Name Unknown Address Unknown Organization K09:[facility] [place] [address] Laboratory Report Ordering Provider Test Date Status BARBARA TAN 09/18/2023 13:17:07 Final Warfarin Therapy
INR: 2 .0-3.0 conventional anticoagulation
INR: 2.5- 3.5 high intensity anticoagulation Observation Date Value Abnormality Reference (Units ) Status PT 09/18/2023 13:17:07 15.6 Above high normal 11 .6-15.2 (seconds) Final INR 09/18/2023 13:17:07 1.2 0.8-1.2 Final Performing Location [facility] [place] [address]
--- OUTSIDE RECORDS SUMMARY | 2023-09-27 13:12 | External Medical Summary | Summary of Care ---
Author Name Unknown Organization [facility] Address [address] [place] [address] Phone [phone] Care Team Providers Care Slasher Name Role Phone BladeHank goodman Primary Care Provider [phone] Reason for Visit * Reason Onset Date Comments Appointment 09/10/2023 Encounter Details Date Type Department Care Team ([facility] st Contact Info) Description 09/10/2023 Telephone Radiation Oncology, [place] [address] [place] [address] Prakash Vyas MD [address] [place] [address] Appointment Allergies Active Allergy Reactions Criticality Noted Date Comments [place] Oil 02/27/2021 Other reaction(s): ANAPHYLACTIC Ciprofloxacin Rash [...] as of this encounter (statuses as of 09/10/2023) Medications Medication Sig Dispensed Refills Start Date [...] as of this encounter (statuses as of 09/10/2023) Active Problems Problem Noted Date Diagnosed Date [...] testing for her 2 sons. Elyssa Sesay Maldonado, [place] 11/12/2016, 2:08 PM History of [...] as of this encounter (statuses as of 09/10/2023) Resolved Problems Problem Noted Date Diagnosed Date [...] as of this encounter (statuses as of 09/10/2023) Immunizations Name Administration Dates Next Due COVID-19 mRNA, LNP-s, No Pre serve, 2-Dose Series (Dataium) 08/26/2021,03/29/2021,07/28/2020,07/02 COVID-19, MRNA-LNP, 23-24, P F, 30 MCG/0.3 mL, 12 YRS AND ABOVE, IM ([facility]) 04/07/2023 Covid-19, Mrna, Lnp-s, Pf, B ivalent, 30 Mcg, IM, 12 yrs and above (Dataium) 02/14/2022 Pneumococcal Conjugate Vacc, 13 Valent (Prevnar) [...] encounter Miscellaneous Notes * Telephone Encounter - Ginette Menendez OSA - 09/10/2023 2:30 PM EDT Called patient to advise of d/t of simulation with Dr. Vyas. On 09/30 @10:00 after MRI. Patient aware. Provided number for call back in case of issues with transport. 09/09 AP documented in this encounter Plan of Treatment Upcoming Encounters Date Type Department Care Team (Latest Contact Info) Description 09/17/2023 10:45 AM EDT Office Visit Hematology/Oncolog y [facility] [place] [address] [place] [phone] Kush Linton MD [address] [facility] [place] [address] 09/29/2023 1:00 PM EDT Office Visit Family Practice [facility] [place] [address] [place] [address] Hank Ivey, [address] [place] [address] 09/30/2023 12:30 PM EDT Office Visit Gynecology/Oncolog y, [address] [place] [address] Ama Ruano PA-C [address] [place] [address] 10/01/2023 8:30 AM EDT Appointment MRI, [place] [address] [place] [address] 10/01/2023 10:00 AM EDT Documentation Radiation Oncology, [place] [address] [place] [address] Prakash Vyas MD [address] [place] [address] 10/06/2023 1:00 PM EDT Immunization/Injectio n Hematology/Oncolog y Treatment, [place] 200 [facility] [place] [phone] Nurse, Med 4 [address] [facility] [place] [address] 10/21/2023 8:30 AM EDT Office Visit Cardiology, [facility] [place] [address] Sarah Mohan CRNP [facility] [address] 10/27/2023 3:00 PM EDT Office Visit Nephrology, [facility] [address] [facility] [place] [address] ZemaShirley newman PA-C [address] [facility] [place] [address] 11/09/2023 10:00 AM EDT Nurse Only Ancillary [facility] [place] [address] [facility] [place] [address] Im, Nurse Annual Wellness [facility] [address] [facility] [place] [address] 11/20/2023 9:30 AM EDT Hospital Encounter ENDO [facility], Endoscopy Room [facility] [address] [facility] [place] [phone] Rogelio Yeh MD [address] [place] [address] 11/20/2023 9:30 AM EDT - 11/20/2023 10:00 AM EDT Surgery ENDO [facility], Endoscopy Room [facility] [address] [place] [phone] Rogelio Yeh MD [address] [place] [address] COLONOSCOPY FLEXIBLE PROXIMAL DIAGNOSTIC 11/23/2023 9:20 AM EDT Office Visit Family Practice [facility] [address] [facility] [place] [address] Esperanza Jeffery DO [address] [facility] [place] [address] 01/28/2024 11:00 AM EDT Office Visit Otolaryngology/Hea d & Neck/Facial Plastic Surgery [address] [place] [address] Tyrone Tenorio MD [address] [place] [address] 03/03/2024 11:00 AM EDT Office Visit Rheumatology [place] [phone] [facility] [place] [address] Avinash Rasmussen MD [facility] [employer] [place] [address] Scheduled Procedures Name Priority Associated Diagnoses Date/Ti me COLONOSCOPY FLEXIBLE PROXIMAL DIAGNOSTIC Recall History of colon polyps Tubular adenoma 11/20/2023 9:30 AM EDT Health Maintenance Due Date Last Done Comments Colonoscopy 04/23/2023 04/23/2020, 04/04, 04/29/2016, Additional history exists Albumin/Creatinine Ratio 05/12/2023 023, 02/05/2021, 01/06/2020, Additional history exists CKD PHOS USE SMARTSET 68467 07/29/2023 07/28/2022, 06/24/2021, 05/10/2019, Additional history exists Depression Screening 11/01/2023 10/31/2022 GFR 02/19/2024 08/20/2023, 12/2023, 01/09/2023, Additional history exists CKD HGB USE SMARTSET 18988 08/19/202408/19, 08/20/2023, 01/09/2023, Additional history exists DTaP,Tdap,and Td Vaccines (2 [...] D LEVEL ONCE IN A LIFETIME-USE SMARTSET# [id number] Completed 05/11/2023, 07/28/2022, 06/24/2021, Additional history exists [...] this encounter Medical Devices Implanted Type Area Electronic Engineering Draftsperson Device Identifier Shelf Expiration Date Model / Serial / Lot 7fr X 24cm Bard Inlay [place] Ureteral Stent Implanted:Qty : 1 on 04/04/2014 by Sawyer Parson MD at OR [facility] Left: Ureter INACTIVE CR [employer] 10/01/2018 [id number] / / [id number] Port Power Mri W/8fr Cath - [id number] Implanted:Qty : 1 on 05/23/2015 by Nay Hernandez MD at OR [facility] Right: Subclavian CR BARD : PERIPHERAL VASCULAR 08/29/2016 [id number] / / [id number] documented as of this encounter Advance Directives [...] and were consensually agreed upon. Care Teams Slasher Relationship Specialty Start Date End Date Hank Ivey DO [facility] [place] [address] PCP - General Family Medicine 10/07/16 documented as of this encounter
--- OUTSIDE RECORDS SUMMARY | 2023-09-27 13:12 | External Medical Summary | Summary of Care ---
Author Name Unknown Organization [facility] Address [address] [place] [address] Phone [phone] Care Team Providers Care [employer]oples[employer] Hcm Developer Name Role Phone JessicaHank salas Cheyenne GUTIERREZ Primary Care Provider [phone] Reason for Visit * Reason Comments Short of Breath Patient states that this has been ongoing for months and continues to worsen. She states that it typically occurs with exertion. Tremor Patient states that she is very shaky primarily in her hands. Nausea Patient states that the nausea comes and goes and can be very bad. Patient states that its been occurring for a couple of weeks, on and off with Thursday being the worst. Cough Patient reports havi ng a cough for about 3 weeks. Patient states that she has a dry cough and she feels weak. Encounter Details Date Type Department Care Team (Late st Contact Info) Description 08/20/2023 11:40 AM EDT Office Visit [facility] [place] [place] [place] [address] Esperanza Jeffery DO 200 [facility] [place] [address] Mediastinal lymphadenopathy*; LOCKETT (dyspnea on exertion); Nausea without vomiting; Diarrhea, unspecified type; Pulmonary embolism and infarction (HCC); Stage 3 chronic kidney disease, unspecified whether stage 3a or 3b CKD (HCC); Chronic kidney disease, stage 3b (HCC) Allergies Active Allergy Reactions Criticality Noted Date Comments [place] Oil 02/27/2021 Other reaction(s): ANAPHYLACTIC Ciprofloxacin Rash [...] as of this encounter (statuses as of 09/03/2023) Medications Medication Sig Dispensed Refills Start Date End Date Status amoxicillin (AMOXIL) 500 MG Capsule TAKE 4 CAPSULES BY MOUTH 1 HOUR PRIOR TO APPOINTMENT 4 Cap 3 05/10/2019 Active Meclizine HCl 25 MG Oral Tablet (Antivert) Take 1 Tab by mouth 3 times a day as needed for Dizziness. 30 Tab 1 11/13/2020 Active Ondansetron HCl 8 MG Oral TabletIndications:E [...] Tablet (Compazine)Indicati ons:EGFR-related lung cancer (HCC) Take by mouth 1 Tablet every 6 hours as needed for Nausea. 30 Tablet 2 10/28/2021 09/01/19 24 Discontinu ed(Refill) Hospital, Clinic, or Other Facility Administered Medication Ordered Dose Route Frequency Start Date End Date Status albuterol (PROVENTIL HFA) inhaler 4 PuffIndications:SOB (shortness of breath) 4 Puff IN Q4H PRN 01/23/2017 Act jacinta documented as of this encounter (statuses as of 09/03/2023) Active Problems Problem Noted Date Diagnosed Date Stage 3 chronic kidney disease 09/03/2023 Closed [...] as of this encounter (statuses as of 09/03/2023) Resolved Problems Problem Noted Date Diagnosed Date [...] as of this encounter (statuses as of 09/03/2023) Immunizations Name Administration Dates Next Due COVID-19 mRNA, LNP-s, No Pre serve, 2-Dose Series (SwimTopia) 08/26/2021,03/29/2021,07/28/2020,07/02 COVID-19, MRNA-LNP, 23-24, P F, 30 MCG/0.3 mL, 12 YRS AND ABOVE, IM ([employer]-Comirnaty) 04/07/2023 Covid-19, Mrna, Lnp-s, Pf, B ivalent, [...] Sign Reading Time Taken Comments Blood Pressure 118/64 08/20/2023 11:26 AM EDT Pulse 97 08/20/2023 11:26 AM EDT Temperature 36.7 C (98 F) 08/20/2023 11:26 AM EDT Respiratory Rate - - Oxygen Saturation 97% 08/20/2023 11:26 AM EDT Inhaled Oxygen Concentration - - Weight 87.1 kg (192 lb 1.9 oz) 08/20/2023 11:26 AM EDT Height 161.3 cm (5' 3.5") 08/20/2023 11:26 AM ED T Body Mass Index 33.49 08/20/2023 11:26 AM EDT documented in this [...] as of this encounter Progress Notes * Esperanza Jeffery DO - 08/20/2023 11:59 AM EDT Subjective: Dianne Aguayo is a 82 year old female. Chief Complaint Patient presents with Short of Breath Patient states that this has been ongoing for months and continues to worsen. She states that it typically occurs with exertion. Tremor Patient states that she is very shaky primarily in her hands. Nausea Patient states that the nausea comes and goes and can be very bad. Patient states that its been occurring for a couple of weeks, on and off with Thursday being the worst. Cough Patient reports having a cough for about 3 weeks. Patient states that she has a dry cough and she feels weak. HPI: Shortness of breath has gradually worsened over the last few months. Has h/o cancer, and now new mediastinal lymphadenopathy. Awaiting CT PET Wasn't able to get up in the morning Thursday, very weak and tired. Wasn't able to turkey picker gabapentin. A lot of mucous in her mouth. 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 90 Tablet 1 Gabapentin 100 MG Oral Capsule (Neurontin) Take 1 capsule nightly 30 Capsule 0 Magnesium Oxide 400 MG Oral Capsule Take 1 capsule daily. 30 Capsule 5 Riboflavin 400 MG Oral Tablet Take 1 Tablet by mouth in the morning. 30 Tablet 5 Lisinopril 40 MG Oral Tablet Take 1 Tablet by mouth in the morning. 90 Tablet 3 Albuterol Sulfate HFA 108 (90 Base) MCG/ACT Inhalation Aerosol Solution Inhale 2 Puffs by mouth in the morning and 2 Puffs at noon and 2 Puffs in the evening and 2 Puffs before bedtime. 54 g 1 Fexofenadine HCl 180 MG Oral Tablet (Ashley) Take 1 Tablet by mouth daily as needed for Allergies.90 Tablet 3 hydroCHLOROthiazide 12.5 MG Oral Tablet (Hydrodiuril) Take 1 Tablet by mouth in the morning. 90 Tablet 3 amLODIPine Besylate 10 MG Oral Tablet (Norvasc) Take 1 Tablet by mouth in the morning. 90 Tablet 2 tiZANidine HCl 4 MG Oral Capsule Take 1 Capsule by mouth 3 times a day as needed for Muscle spasms.270 Capsule 3 Eliquis 5 MG Oral Tablet Take 1 Tablet by mouth in the morning and 1 Tablet before bedtime. 180 Tablet 1 Metoprolol Succinate ER 50 MG Oral Tablet Extended Release 24 Hour (toPROL XL) Take 1 Tablet by mouth in the morning. 90 Tablet 3 Potassium Citrate ER 10 MEQ (1080 MG) Oral Tablet Extended Release (potassium citrate-10) Take 1 Tablet by mouth in the morning and 1 Tablet before bedtime. 180 Tablet 2 Vitamin D3 50 MCG (2000 UT) Oral Capsule Take 1 Capsule by mouth in the morning. 90 Capsule 3 Fluticasone Propionate 50 MCG/ACT Nasal Suspension (Flonase) Administer 2 Sprays into each nostril in the morning. 48 mL 1 [DISCONTINUED] Prochlorperazine Maleate 10 MG Oral Tablet (Compazine) Take by mouth 1 Tablet every 6 hours as needed for Nausea. 30 Tablet 2 Colchicine 0.6 MG Oral Tablet TAKE 1 TABLET BY MOUTH 2 TIMES A DAY NEEDED FOR FLARE 60 Tablet 1 Famotidine 20 MG Oral Tablet (Pepcid) Take 1 Tablet by mouth 2 times a day as needed for Heartburn.60 Tablet 5 Meclizine HCl 25 MG Oral Tablet (Antivert) Take 1 Tab by mouth 3 times a day as needed for Dizziness. 30 Tab 1 Ondansetron HCl 8 MG Oral Tablet Take 1 Tab by mouth every 8 hours as needed for Nausea. 30 Tab 2 amoxicillin (AMOXIL) 500 MG Capsule TAKE 4 CAPSULES BY MOUTH 1 HOUR PRIOR TO APPOINTMENT 4 Cap 3 Facility-Administered Medications Prior to Visit Medication Dose Route Frequency Provider Last Rate Last Admin albuterol (PROVENTIL HFA) inhaler 4 Puff 4 Puff Inhalation Q4H PRN Hank Ivey, DO 4 Puff at01/27/17 1130 Last reviewed on 08/20/2023 11:27 AM by Mikel Oliveros MED ASSIST Review of patient's allergies indicates: Allergen Reactions Paclitaxel Anaphylaxis Other reaction(s): ANAPHYLACTIC [place] Oil Other reaction(s): ANAPHYLACTIC Ciprofloxacin Rash Rash [...] Tramadol Nausea/vomiting nausea Other reaction(s): GI SYMPTOMS Objective: BP 118/64 | Pulse 97 | Temp 36.7 C (98 F) (Tympanic) | Ht 1.613 m (5' 3.5") | Wt 87.1 kg (192 lb 1.9 oz) | SpO2 97% | BMI 33.49 kg/m | BSA 1.98 m Physical Exam: General: alert, healthy, and no distress Head: Normocephalic, No masses, lesions, tenderness or abnormalities Neck: supple, no adenopathy, no bruits, thyroid normal size, non-tender, without nodularity Heart: regular rate & rhythm, no murmur, and no gallops Lungs: chest symmetric with normal AP diameter, no chest deformities noted, coarse sounds heard, decreased breath sounds Pulses: carotid=2/4 w/o bruits Extremities: less than 2 second capillary refill, no joint deformities, effusion, or inflammation EXAM EXAM: CT CHEST W CONTRAST DATE and TIME: 05/18/2023 1:07 pm HISTORY CLINICAL INFORMATION: Case of recurrent lung cancer involving the right lung, previous history of lung cancer and breast cancer. Pleural-based nodule, mediastinal lymphadenopathy in the previous CT scan but PET-CT scan showed no convincing FDG avid disease. TECHNIQUE IV Contrast: IV contrast used COMPARISON 01/13/2023 FINDINGS LINES AND DEVICES: Venous port in the right chest terminates in the lower SVC. LUNGS: Surgical staple line in the posterior segment of the right upper lobe consistent with prior wedge resection. Large densely calcified granuloma in the right upper lobe measuring 9 mm along the interlobar fissure. Right upper lobe 8 x 5 mm perifissural nodule along the horizontal fissure is stable (image 131 series 12). Left lung micro nodules are unchanged. LARGE AIRWAYS: Patent PLEURA: Multiple right pleural nodules have increased in size and number when compared to the priorexam. For example there is now a 6 millimeter subpleural nodule in the right lower lobe on image 141 series 12, previously 4 millimeters. VESSELS: Main pulmonary artery is dilated, 3.4 cm. No pulmonary artery filling defect is seen. HEART: Chambers are normal size. No pericardial effusion. Mild coronary artery calcifications. MEDIASTINUM AND NOLA: Increasing prominence of the mediastinal lymph nodes. For example there is a new 11 millimeter prevascular lymph node on image 86 series 12. Similar right calcified hilar nodes CHEST WALL/SOFT TISSUES: Findings of left mastectomy. IMPRESSION IMPRESSION Increasing mediastinal adenopathy. Increasing burden of multiple right pleural nodules ASSESSMENT/PLAN: Symptoms are consistent with increasing mediastinal lymphadenopathy and increasingpulmonary nodules. Currently awaiting CT PET which is scheduled. Oxygenating okay, for now continuesupportive care, treatment of nausea as needed with Zofran will check chest x-ray today to be sure no rapid progression or significant change since last recent CT in May. Go to ER with emergencies. Mediastinal lymphadenopathy (Primary) - XR CHEST 2 VIEWS - CBC WITH WBC DIFFERENTIAL; Future; Expected date: 08/20/2023 LOCKETT (dyspnea on exertion) - XR CHEST 2 VIEWS Nausea without vomiting - COMPREHENSIVE METABOLIC PANEL; Future; Expected date: 08/20/2023 - Ondansetron 4 MG Oral Tablet Disintegrating (Zofran); Place 1 Tablet on tongue every 8 hours as needed for Nausea. dissolve on tongue. Diarrhea, unspecified type - COMPREHENSIVE METABOLIC PANEL; Future; Expected date: 08/20/2023 Follow Up: Return in about 3 months (around 11/19/2023) for Clinic Visit, Labs Today. | For: Clinic Visit, Labs Today | Check-out note: xraY TODAy 30 min spent with patient, reviewing history, performing physical exam, reviewing labs, studies, specialist OVNs, and reports, educating and coordinating care, discussing treatment Esperanza Jeffery DO documented in this encounter Nursing Notes * Mikel Oliveros MED ASSIST - 08/20/2023 11:31 AM EDT Chief Complaint Patient presents with Short of Breath Patient states that this has been ongoing for months and continues to worsen. She states that it typically occurs with exertion. Tremor Patient states that she is very shaky primarily in her hands. Nausea Patient states that the nausea comes and goes and can be very bad. Patient states that its been occurring for a couple of weeks, on and off with Thursday being the worst. Cough Patient reports having a cough for about 3 weeks. Patient states that she has a dry cough and she feels weak. documented in this encounter Plan of Treatment Upcoming Encounters Date Type Department Care Team (Latest Contact Info) Description 09/08/2023 10:45 AM EDT Imaging Radiology [facility] [address] [facility] [place] [address] 09/09/2023 3:00 PM EDT Office Visit Radiation Oncology, [place] [address] [place] [address] Prakash Vyas MD [address] [place] [address] 09/17/2023 10:45 AM EDT Office Visit Hematology/Oncology [facility] [address] [place] [phone] Kush Linton MD [address] [place] [address] 09/29/2023 1:00 PM EDT Office Visit Family Practice [facility] [place] [address] [place] [address] Hank Ivey, DO 200 [facility] [place] [address] 09/30/2023 12:30 PM EDT Office Visit Gynecology/Oncology , [place] [address] [place] [address] Ama Ruano PA-C [address] [place] [address] 10/06/2023 1:00 PM EDT Immunization/Injec tion Hematology/Oncology Treatment, [place] [address] [facility] [id number] Nurse, Med 200 [facility] [place] [address] 10/21/2023 8:30 AM EDT Office Visit Cardiology, [facility] [address] [place] [address] Sarah Mohan CRNP [address] [place] [address] 10/27/2023 3:00 PM EDT Office Visit Nephrology, [facility] [address] [facility] [place] [address] ZeShirley suazo PA-C [address] [facility] [place] [address] 11/09/2023 10:00 AM EDT Nurse Only Ancillary [facility] [place] [address] [place] [address] Im, Nurse Annual Wellness [facility] [address] [place] [address] 11/20/2023 9:30 AM EDT Hospital Encounter ENDO [facility], Endoscopy Room [facility] [address] [place] [phone] Rogelio Yeh MD [address] [place] [address] 11/20/2023 9:30 AM EDT - 11/20/2023 10:00 AM EDT Surgery ENDO [facility], Endoscopy Room [facility] [address] [place] [phone] Rogelio Yeh MD [address] [place] [address] COLONOSCOPY FLEXIBLE PROXIMAL DIAGNOSTIC 11/23/2023 9:20 AM EDT Office Visit Family Practice [facility] [address] [facility] [address] [place] [address] Esperanza Jeffery DO 200 [facility] [place] [address] 01/28/2024 11:00 AM EDT Office Visit Otolaryngology/Head & Neck/Facial Plastic Surgery [address] [place] [address] Tyrone Tenorio MD [address] [place] [address] 03/03/2024 11:00 AM EDT Office Visit Rheumatology [facility] [address] [place] [address] Avinash Rasmussen MD [address] [place] [address] Scheduled Procedures Name Priority Associated Diagnoses Date/Ti me COLONOSCOPY FLEXIBLE PROXIMAL DIAGNOSTIC Recall History of colon polyps Tubular adenoma 11/20/2023 9:30 AM EDT Health Maintenance Due Date Last Done Comments Colonoscopy 04/23/2023 04/23/2020, 04/04, 04/29/2016, Additional history exists Albumin/Creatinine Ratio 05/12/2023 023, 02/05/2021, 01/06/2020, Additional history exists CKD PHOS USE SMARTSET 44273 07/29/2023 07/28/2022, 06/24/2021, 05/10/2019, Additional history exists Depression Screening 11/01/2023 10/31/2022 GFR 02/19/2024 08/20/2023, 12/2023, 01/09/2023, Additional history exists CKD HGB USE SMARTSET 19419 08/19/202408/19, 08/20/2023, 01/09/2023, Additional history exists DTaP,Tdap,and [...] D LEVEL ONCE IN A LIFETIME-USE SMARTSET# 48299 Completed 05/11/2023, 07/28/2022, 06/24/2021, Additional history exists [...] this encounter Medical Devices Implanted Type Area Door Fitter Device Identifier Shelf Expiration Date Model / Serial / Lot 7fr X 24cm Bard Inlay [place] Ureteral Stent Implanted:Qty : 1 on 04/04/2014 by Sawyer Parson MD at OR [facility] Left: Ureter INACTIVE [employer] 10/01/2018 [id number] / / [id number] Port Power Mri W/8fr Cath - [id number] Implanted:Qty : 1 on 05/23/2015 by Nay Hernandez MD at OR [facility] Right: Subclavian CR BARD : PERIPHERAL VASCULAR 08/29/2016 [id number] / / [id number] documented as of this encounter Procedures Procedure Name Priority Date/Time Associated Diagnosis Comments XR CHEST 2 VIEWS Routine 08/20/2023 12:5 6 PM EDT Mediastinal lymphadenopathy LOCKETT (dyspnea on exertion) documented in this encounter Results * XR CHEST 2 VIEWS (08/20/2023 12:56 PM EDT) Anatomical Region Laterality Modality Chest Computed Radiogr aphy 08/20/2023 5:29 PM EDT Impressions 08/20/2023 5:26 PM EDT IMPRESSION Hypoventilatory changes. There appears to be increased nodular thickening of the right pleura which is nonspecific given hypoventilatory changes and may be related to inspiratory effort or worsening disease. Correlate with upcoming PET-CT. In compliance with act 112, the DONAVAN (radiology employee service officer) was contacted to invoke system generated communication of the patient's results. Narrative 08/20/2023 5:26 PM EDT EXAM XR CHEST 2 VIEWS-08/20/2023 12:56 pm HISTORY Increased SOB, mediastinal adenopathy, plan for PET in September, h/o lung cancer x 3, COMPARISON Chest radiograph 02/26/2021. CT chest 05/18/2023. TECHNIQUE PA and lateral views of the chest are examined. FINDINGS No focal airspace consolidation. Small nodular opacity in the right upper lobe appears similar. Right chest wall power injectable MediPort terminates near the cavoatrial junction. There are hypoventilatory changes with worsened nodular thickening of the periphery of the right hemithorax. There is no pleural effusion. The pulmonary vasculature and cardiomediastinal silhouette are within normal limits. No acute osseous finding. Bilateral shoulder arthroplasties. Procedure Note Alexander Dunn MD - 08/20/2023 EXAM XR CHEST 2 VIEWS-08/20/2023 12:56 pm HISTORY Increased SOB, mediastinal adenopathy, plan for PET in September, h/o lungcancer x 3, COMPARISON Chest radiograph 02/26/2021. CT chest 05/18/2023. TECHNIQUE PA and lateral views of the chest are examined. FINDINGS No focal airspace consolidation. Small nodular opacity in the right upperlobe appears similar. Right chest wall power injectable MediPortterminates near the cavoatrial junction. There are hypoventilatorychanges with worsened nodular thickening of the periphery of the righthemithorax. There is no pleural effusion. The pulmonary vasculature andcardiomediastinal silhouette are within normal limits. No acute osseousfinding. Bilateral shoulder arthroplasties. IMPRESSION IMPRESSION Hypoventilatory changes. There appears to be increased nodular thickeningof the right pleura which is nonspecific given hypoventilatory changes andmay be related to inspiratory effort or worsening disease. Correlate withupcoming PET-CT. In compliance with act 112, the DONAVAN (radiology employee service officer) wascontacted to invoke system generated communication of the patient'sresults. Esperanza Jeffery DO RADIOLOGY (RAD GENERAL) * (ABNORMAL) COMPREHENSIVE METABOLIC PANEL (08/20/2023 12:34 PM EDT) BUN 32(H) 6 - 20 mg/dL 08/20/2023 1:45 PM EDT [facility] 56- Creatinine 1.2(H) 0.5 - 1.0 mg/dL 08/20/2023 1:45 PM EDT [facility] 56- Estimated Glomerular Filtration Rate 45(L) >=60 mL/min 08/20/2023 1:45 PM EDT [facility] 56- Comment:eGFR is calculated b ased on the CKD-EPI 2020 equation Sodium 145 135 - 146 mmol/L 08/20/2023 1:45 PM EDT [facility] 56- Potassium 4.3 3.5 - 5.1 mmol/L 08/20/2023 1:45 PM EDT [facility] 56- Chloride 106 98 - 107 mmol/L 08/20/2023 1:45 PM EDT [facility] 56- CO2 27 22 - 32 mmol/L 08/20/2023 1:45 PM EDT [facility] 56 Anion Gap 12 7 - 15 mmol/L 08/20/2023 1:45 PM EDT [place] [address] Glucose 111 70 - 120 mg/dL 08/20/2023 1:45 PM EDT [place] [address] Albumin 4.2 3.8 - 5.0 g/dL 08/20/2023 1:[address]T [address] AST 23 10 - 35 U/L 08/20/2023 1:45 PM EDT [address] Alkaline Phosphatase 170(H) 35 - 130 U/L 08/20/2023 1:45 PM [address]T [address] Bilirubin, Total 0.7 <=1.2 mg/dL 08/20/2023 1:45 PM EDT [place] [address] Calcium 10.3(H) 8.4 - 10.2 mg/dL 08/20/2023 1:[address]T [address] Protein 6.2 6.0 - 8.3 g/dL 08/20/2023 1:[address] ALT 20 10 - 35 U/L 08/20/2023 1:45 PM EDT [address] Blood Venous blood specimen / Unknown Venipuncture / Unknown 08/20/2023 12:34 PM EDT 08/20/2023 12:34 PM EDT Esperanza Jeffery DO LAB BLOOD ORDER [place] [facility] [address] [place] [address] documented in this encounter Visit Diagnoses Diagnosis Mediastinal lymphadenopathy- Primary Enlargement of lymph nodes LOCKETT (dyspnea on exertion) Other dyspnea and respiratory abnormality Nausea without vomiting Diarrhea, unspecified type Pulmonary embolism and infarction (HCC) Other pulmonary embolism and infarction Stage 3 chronic kidney disease, unspecified whether stage 3a or 3b CKD (HCC) Chronic kidney disease, stage 3b (HCC) History of colon polyps Personal history [...] and were consensually agreed upon. Care Teams Peoplesoft Hcm Developer Relationship Specialty Start Date End Date Hank Ivey DO [address] [place] [address] PCP - General Family Medicine 10/07/16 documented as of this encounter
--- OUTSIDE RECORDS SUMMARY | 2023-09-27 13:12 | External Medical Summary ---
Author Name Unknown Address Unknown Organization K09:[facility] [place] [address] Laboratory Report Ordering Provider Test Date Status FROILAN VENEGAS 09/17/2023 11:17:27 Final Observation Date Value Abnormality Reference (Units ) Status SYNC LEUKOCYTES IN BLOOD BY AUTOMATED COUNT 09/17/2023 11:17:27 12.89 Above high normal 4.00-10.80 (K/uL) Final Segs 09/17/2023 11:17:27 72.9 40.0-75.0 (%) Final Lymphs % 09/17/2023 11:17:27 16.0 Below low normal 18.0-42.0 (%) Final Monos 09/17/2023 11:17:27 8.9 1.0-11.0 (%) Final Eosinophils 09/17/2023 11:17:27 2.0 0.0-6.0 (%) Final Basos 09/17/2023 11:17:27 0.2 0.0-2.0 (%) Final Absolute Segs 09/17/2023 11:17:27 9.40 Above high normal 1.80-7.70 (K/uL) Final Lymphs, absolute 09/17/2023 11:17:27 2.06 1.00-4.80 (K/ul) Final Monos, Abs 09/17/2023 11:17:27 1.15 Above high normal 0.00-1.10 (K/uL) Final Eos, Abs 09/17/2023 11:17:27 0.26 0.00-0.70 (K/uL) Final Basos, Abs 09/17/2023 11:17:27 0.02 0.00-0.20 (K/uL) Final Performing Location [facility] [place] [address]
--- OUTSIDE RECORDS SUMMARY | 2023-09-27 13:12 | External Medical Summary ---
Author Name Unknown Address Unknown Organization K01:[facility] [address] [place] [address] Laboratory Report Ordering Provider Test Date Status FROILAN VENEGAS 09/17/2023 11:17:27 Final Observation Date Value Abnormality Reference (Units ) Status Ammonia 09/17/2023 11:17:27 29 11-35 (umo l/L) Final Performing Location [facility] [address] [place] [address]
--- OUTSIDE RECORDS SUMMARY | 2023-09-27 13:12 | External Medical Summary | Summary of Care ---
Author Name Unknown Organization [facility] Address [address] [place] [address] Phone [phone] Care Team Providers Care Poultry Pinner Name Role Phone BladeHank goodman Cheyenne GUTIERREZ Primary Care Provider [phone] Reason for Referral * Precert (Within 24 hrs (call dept; emergent)) - Pending Review Specialty Diagnoses / Procedures Referred By Fred guidry Referred To Contact Radiology Diagnoses Right acoustic neuroma (HCC) Procedures MRI BRAIN,RAD ONC PLANNING W WO CONTRAST Prakash Vyas MD [address] [place] [address] Referral ID Status Reason Start Date Expiration Date V isits Requested Visits Authorized [id number] Pending Review 09/16/[phone] Reason for Visit * Evaluate & Treat - Unlimited Visits (Within 30 days (routine)) - Pending Review Specialty Diagnoses / Procedures Referred By Fred guidry Referred To Contact Radiation Oncology Diagnoses Asymmetric SNHL (sensorineural hearing loss) Unilateral vestibular schwannoma (HCC) Ortiz Farley PA-C [address] [place] [address] Prakash Vyas MD [address] [place] [address] Referral ID Status Reason Start Date Expiration Date Visits Requested Visits Authorized [id number] Pending Review Specialty Services Required 08/12/[phone] Encounter Details Date Type Department Care Team ([facility] st Contact Info) Description 09/09/2023 3:00 PM EDT Office Visit Radiation Oncology, [place] [address] [place] [address] Prakash Vyas MD [address] [place] [address] Right acoustic neuroma (HCC)* Allergies Active Allergy Reactions Criticality Noted Date Comments Nardin Oil 02/27/2021 Other reaction(s): ANAPHYLACTIC Ciprofloxacin Rash [...] as of this encounter (statuses as of 09/09/2023) Medications Medication Sig Dispensed Refills Start Date [...] as of this encounter (statuses as of 09/09/2023) Active Problems Problem Noted Date Diagnosed Date [...] as of this encounter (statuses as of 09/09/2023) Resolved Problems Problem Noted Date Diagnosed Date [...] as of this encounter (statuses as of 09/09/2023) Immunizations Name Administration Dates Next Due COVID-19 mRNA, LNP-s, No Pre serve, 2-Dose Series (Canines) 08/26/2021,03/29/2021,07/28/2020,07/02 COVID-19, MRNA-LNP, 23-24, P F, 30 MCG/0.3 mL, 12 YRS AND ABOVE, IM ([employer]) 04/07/2023 Covid-19, Mrna, Lnp-s, Pf, B ivalent, [...] as of this encounter Progress Notes * Prakash Vyas MD - 09/09/2023 3:00 PM EDT Images from the original note were not included. RADIATION ONCOLOGY CONSULTATION NOTE Radiation Oncology, [address] [address] DATA SOURCE: Patient, [facility] LOCATION: Radiation Oncology Clinic 09/09/2023 2:36 PM Dianne Aguayo [id number] 82 year old Dianne Aguayo was seen in consultation by Radiation Oncology on 09/09/2023. REFERRING PHYSICIAN: Ortiz Farley PA-C DIAGNOSTIC HISTORY: 82 year old female with Left breast cancer s/p left mastectomy 1982 HG serous endometrial JOSH, [id number], Stage Ia, diagnosed via biopsy 02/09/2015, s/p HAIM/BSO/LND 04/16/2015, s/p Paclitaxel->Carboplatin/Docetaxel 06/19 - 07/17 G2 Acinar JOSH RUL, EGFRmut, [id number], diagnosed via wedge resection 03/12/2016 (margins-), S/p wedgeresection for recurrence 07/19/2019 (MD MORENO, EGFRmut), s/p osimertinib 08/21 - 04/24 Acoustic neuroma right IAC, radiographically progressing REASON FOR CONSULTATION: Discussion of the potential role of radiation therapy in the management of the patient's disease HISTORY OF PRESENT ILLNESS: 07/29/2019 MRI brain (staging for recurrent JOSH lung): No acute intracranial abnormality or evidenceof intracranial metastatic disease. P/W gradual hearing loss R>L 01/29/2022 MRI IAC (concerned about right ear hearing loss): 1. Again noted is the enhancing mass seen within the right internal auditory canal extending slightly into the right CP angle cistern that measures 1.8 x 0.9 x 0.8 cm, previously measuring 1.5 x 0.9 x 0.6 cm on 07/29/2019. The cisternal portions of the trigeminal nerves are unremarkable. The course of the left 7th and 8th cranial nerves is unremarkable. The T2 weighted signal intensity within the bilateral vestibule and cochlea is grossly maintained. 2. Global volume loss and findings most commonly associated with mild chronic small vessel disease. 3. Mild mucosal thickening of the left sphenoid sinus. 08/14/2022 MRI IAC: 1. Right CPA-IAC vestibular schwannoma. Lesion extends laterally within internal auditory canal to within 1 mm of cochlear aperture, a stable finding. Cerebellopontine angle lesion component [id number] x 11 x 11 mm, increased in size compared with 01/2022 (8 x 6 x 8 mm). 2. Scattered nonspecific cerebral white matter T2/FLAIR hyperintense and nonenhancing foci, compatible with chronic microvascular ischemic changes, normal in number for stated age. 3. Chronic brain parenchymal volume loss. 4. Otherwise, negative contrast-enhanced internal auditory canal MR. No restricted diffusion concerning for acute CVA. No additional abnormal enhancement. 07/16/2023 MRI IAC: Again seen is an enhancing mass filling and expanding the right internal auditory canal, and protruding into the cerebellopontine angle cistern. The extra-canalicular component measures 8 x 9 mm, unchanged. The mass extends to within 1 mm of the cochlear aperture. 07/30/2023 Audiology (very little functional hearing right ear): 08/12/2023 NS ([place]): recommended SRS 08/18/2023 PODIATRIC FOOT AND ANKLE SPECIALIST TB: recommend SRS as lesion growing since 2020 RADIATION HISTORY: None Patient Active Problem List Diagnosis Code HX [...] of right femur with routine healing S72.001D Stage 3 chronic kidney disease (HCC) N18.30 Past Medical History: Diagnosis Date Age-related nuclear cataract of both eyes Allergic rhinitis due to pollen 03/01/2009 Axial hypermetropia of both eyes Benign neoplasm of colon 02/11/2012 COLONOSCOPY FLEXIBLE PROXIMAL DIAGNOSTIC performed by Hasmukh Springer MD at ENDOSCOPY [facility] adenomatous polyps repeat colonoscopy in 6-8 months Benign neoplasm of colon 08/20/2012 COLONOSCOPY AT [facility] WITH DR. 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 Past Surgical History: Procedure Laterality Date CARPAL TUNNEL SURGERY 2000 right hand, at [facility] COLONOSCOPY, DIAGNOSTIC (RECTUM) 03/02/2002 normal-Dr. Roque Tran in [place]. repeat in 10 years. COLONOSCOPY, DIAGNOSTIC (RECTUM) 02/11/2012 COLONOSCOPY FLEXIBLE PROXIMAL DIAGNOSTIC performed by Hasmukh Springer MD at ENDOSCOPY [facility] adenomatous polyps repeat colonoscopy in 6-8 months COLONOSCOPY, DIAGNOSTIC (RECTUM) 08/20/2012 COLONOSCOPY AT [facility] WITH DR. SPRINGER, BENIGN POLYPS REPEAT COLONOSCOPY IN 6-9 MONTHS COLONOSCOPY, DIAGNOSTIC (RECTUM) 03/24/2013 COLONOSCOPY FLEXIBLE PROXIMAL DIAGNOSTIC performed by Hasmukh Springer MD at ENDOSCOPY [facility] COLONOSCOPY, DIAGNOSTIC (RECTUM) 04/29/2016 diverticulosis, repeat 3 yrs/COLONOSCOPY FLEXIBLE PROXIMAL DIAGNOSTIC performed by Fox Cerda MD at ENDOSCOPY [facility] COLONOSCOPY, DIAGNOSTIC (RECTUM) 04/23/2020 diverticulosis, repeat 3 yrs / COLONOSCOPY FLEXIBLE PROXIMAL DIAGNOSTIC performed by Nellie Gimenez DO at ENDOSCOPY [facility] CYSTO/URETERO W/LITHOTRIPSY Left 04/04/2014 CYSTOURETHROSCOPY URETEROSCOPY WITH LITHOTRIPSY AND STENT INSERTION performed by Sawyer Parson MD at OR [facility] CYSTOSCOPY 02/12/2010 DEXA BODY COMP 1 OR > SITE 01/2009 improving, repeat 3 years. DEXA SCAN/BONE MINERAL AXIAL 03/2002 osteoporosis, improved 3-6% on fosamax, repeat in 2005 DEXA SCAN/BONE MINERAL AXIAL 01/29/2006 improved, repeat 2008 DEXA SCAN/BONE MINERAL AXIAL 02/02/2012 DILATION AND CURETTAGE (D&C) 1977 with polypectomy EXPLORATION OF ABDOMEN N/A 04/16/2015 EXPLORATORY LAPAROTOMY performed by Annabel Turner MD at OR [facility] FEMUR FX, REPAIR Left 12/2019 FRAGMENT KIDNEY STONE BY SHOCK WAVE 05/2013 Lithotripsy (ESWL) INSER TUNN ACC DEV;5 YRS/OLDER Right 05/23/2015 INSERT TUNNELED CENTRAL VENOUS ACCESS WITH SUBQ PORT performed by Nay Hernandez MD at [facility] KNEE ARTHROSCOPY, DIAGNOSTIC 06/1999 Knee Scope,Diagnostic, Dr Leone LASER SURGERY OF INNER EYE STRANDS Right 05/11/2015 Laser procedure of the RIGHT eye; Dr. Lopez LIGATE/CUT OVIDUCT(S) Tubal Ligation REMOVAL OF ADENOIDS, UNDER AGE 12 Adenoids Removal, <12 Y/O REMOVAL OF BREAST, MODIFIED RADICAL Left 1981 LEFT, Dr Mahad Cortez, [facility] with radiation and chemo REMOVAL OF TONSILS, UNDER AGE 12 Tonsils Removal,<12 Y/O REMOVE CATARACT, INSERT LENS PROSTH Right 05/28/[address] Russell REMOVE CATARACT, INSERT LENS PROSTH Right 11/12/2015 OS REVISE KNEE JOINT REPLACEMENT Right 05/19/2017 THORACOSCOPY W/ INFILTRATE BIOPSY Right 07/19/2019 THORACOSCOPY W/ INFILTRATE BIOPSY performed by Benja Merrill MD at OR [facility] THORACOSCOPY, DIAGNOSTIC, LUNGS Right 03/12/2016 THORACOSCOPY DIAGNOSTIC WITHOUT BIOPSY performed by Benja Merrill MD at OR [facility] TOTAL ABD HYSTERECTOMY W/WO REMOVAL OF TUBE(S) N/A 04/16/2015 TOTAL ABDOMINAL HYSTERECTOMY WITH OR WITHOUT TUBES AND OVARIES performed by Annabel Turner MD at [facility] Current Outpatient Medications Medication Sig Dispense Refill [...] Hank Ivey, DO 4 Puff at01/27/17 1130 Review of patient's allergies indicates: Allergen Reactions Paclitaxel Anaphylaxis Other reaction(s): ANAPHYLACTIC Nardin Oil Other reaction(s): ANAPHYLACTIC Ciprofloxacin Rash Rash [...] Tramadol Nausea/vomiting nausea Other reaction(s): GI SYMPTOMS Social History Socioeconomic History Marital status: Spouse name: Palmer Number of children: 2 Years of education: 14 Highest education level: Not on file Occupational History Occupation: retired 10/2002 Comment: [employer] Tobacco Use Smoking status: Never [...] History Narrative born Noé Horan MD in [place] since 1965 Iftikhar Aguayo is her granddaughter Cytotechnologist Supervisor for her 5 years older, recovering [...] Not on file Family History Problem Relation Age of Onset Cancer Mother 40 breast Mental Disorder Grandmother (Maternal) Alzheimers Heart Disorder Grandfather (Paternal) Cancer Grandmother (Paternal) colon Diabetes None Stroke None Thyroid Disorder None Eye Problems None Patient denies hx AMD, glaucoma, retinal detachments or blindness REVIEW OF SYSTEMS: Please see history of present illness above. Review of systems is otherwise non-contributory. PHYSICAL EXAMINATION: There were no vitals taken for this visit. Wt Readings from Last 4 Encounters: 08/20/23 87.1 kg (192 lb 1.9 oz) 08/12/23 88.8 kg (195 lb 11.2 oz) 06/23/23 89.3 kg (196 lb 14.4 oz) 06/20/23 91.3 kg (201 lb 3.2 oz) General: alert and oriented, no apparent distress, cognition normal, and speech normal ZUBROD PERFORMANCE SCALE: 2 ambulatory and capable of all self-care but unable to carry out any work activities, up and aboutmore than 50% of waking hours ASSESSMENT: The patient is an appropriate candidate for SRS. The rationale, the risks, the benefits, the alternatives, and the personnel of radiotherapy were explained to the patient. The role of other modalities, including surgery, systemic therapy, medical management, and observation, were also discussed. The natural history of the patient's disease was explained. All questions were answered and the patient expressed understanding of the relevant issues. The patient is in agreement with this plan. The informed consent form was signed. PLAN: Simulation (no IV contrast as GFR 45) and MRI SRS planning Single fraction SRS anticipated. The patient voiced understanding of all of the above. All questions and concerns were addressed in an apparently satisfactory manner. I spent 45 minutes on this patients care on the date of service. Thank you very much for having asked us to evaluate this patient. Prakash Vyas MD 09/09/2023 documented in this encounter Plan of Treatment Upcoming Encounters Date Type Department Care Team (Latest Contact Info) Description 09/17/2023 10:45 AM EDT Office Visit Hematology/Oncology [facility] [place] [address] [facility] [place] [phone] Kush Linton MD [address] [facility] [place] [address] 09/29/2023 1:00 PM EDT Office Visit Family Practice [facility] [place] [address] [facility] [place] [address] Hank Ivey, [address] [facility] [place] [address] 09/30/2023 12:30 PM EDT Office Visit Gynecology/Oncology , [place] [address] [place] [address] Ama Ruano PA-C [address], [place] [id number] 10/06/2023 1:00 PM EDT Immunization/Injec tion Hematology/Oncology Treatment, [place] [address] [facility] [place] [phone] Nurse, Med [address] [facility] [place] [address] 10/21/2023 8:30 AM EDT Office Visit Cardiology, [facility] [address] [facility] [place] [id number] Sarah Mohan CRNP [address] [place] [address] 10/27/2023 3:00 PM EDT Office Visit Nephrology, [facility] [address] [place] [address] Shirley Alicea PA-C [address] [facility] [place] [address] 11/09/2023 10:00 AM EDT Nurse Only [employer] [address] [place] [address] Im, Nurse Annual Wellness [facility] [address] [facility] [place] [address] 11/20/2023 9:30 AM EDT Hospital Encounter ENDO [facility], Endoscopy Room [facility] [address] [place] [phone] Rogelio Yeh MD [address] [place] [address] 11/20/2023 9:30 AM EDT - 11/20/2023 10:00 AM EDT Surgery ENDO [facility], Endoscopy Room [facility] [address] [place] [phone] Rogelio Yeh MD [address] [place] [address] COLONOSCOPY FLEXIBLE PROXIMAL DIAGNOSTIC 11/23/2023 9:20 AM EDT Office Visit Family Practice [facility] [place] [address] [place] [address] Esperanza Jeffery DO [address] [place] [address] 01/28/2024 11:00 AM EDT Office Visit Otolaryngology/Head & Neck/[facility] [address] [facility] [place] [address] Tyrone Tenorio MD [address] [place] [address] 03/03/2024 11:00 AM EDT Office Visit Rheumatology [facility] [address] [place] [address] Avinash Rasmussen MD [address] [place] [id number] Scheduled Orders Name Type Priority Associated Diagnoses Orde r Schedule MRI BRAIN,RAD ONC PLANNING W WO CONTRAST Medical Imaging STAT Right acoustic neuroma (HCC) Expected: 09/16/2023, Expires: 10/09/2024 Scheduled Procedures Name Priority Associated Diagnoses Date/Ti me COLONOSCOPY FLEXIBLE PROXIMAL DIAGNOSTIC Recall History of colon polyps Tubular adenoma 11/20/2023 9:30 AM EDT Health Maintenance Due Date Last Done Comments Colonoscopy 04/23/2023 04/23/2020, 04/04, 04/29/2016, Additional history exists Albumin/Creatinine Ratio 05/12/2023 023, 02/05/2021, 01/06/2020, Additional history exists CKD PHOS USE SMARTSET 75859 07/29/2023 07/28/2022, 06/24/2021, 05/10/2019, Additional history exists Depression Screening 11/01/2023 10/31/2022 GFR 02/19/2024 08/20/2023, 12/2023, 01/09/2023, Additional history exists CKD HGB USE SMARTSET 38542 08/19/202408/19, 08/20/2023, 01/09/2023, Additional history exists DTaP,Tdap,and [...] D LEVEL ONCE IN A LIFETIME-USE SMARTSET# [id number] Completed 05/11/2023, 07/28/2022, 06/24/2021, Additional history exists [...] this encounter Medical Devices Implanted Type Area Railroad Repairer Device Identifier Shelf Expiration Date Model / Serial / Lot 7fr X 24cm Bard Inlay Euharlee Ureteral Stent Implanted:Qty : 1 on 04/04/2014 by Sawyer Parson MD at OR [facility] Left: Ureter INACTIVE [employer] 10/01/2018 [id number] / / [id number] Port Power Mri W/8fr Cath - [id number] Implanted:Qty : 1 on 05/23/2015 by Nay Hernandez MD at OR [facility] Right: Subclavian CR BARD : PERIPHERAL VASCULAR 08/29/2016 [id number] / / [id number] documented as of this encounter Visit Diagnoses Diagnosis Right acoustic neuroma (HCC)- Primary Benign neoplasm of cranial nerves History of colon polyps Personal history of [...] and were consensually agreed upon. Care Teams Poultry Pinner Relationship Specialty Start Date End Date Hank Ivey DO [address] [place] [address] PCP - General Family Medicine 10/07/16 documented as of this encounter
--- OUTSIDE RECORDS SUMMARY | 2023-09-27 13:13 | External Medical Summary | Summary of Care ---
Author Name Unknown Organization [facility] Address [address] [place] [address] Phone [phone] Care Team Providers Care Funeral Driver Name Role Phone BladeHank goodman Primary Care Provider [phone] Reason for Referral * Evaluate & Treat - Unlimited Visits (Within 10 days (routine)) - Pending Review Specialty Diagnoses / Procedures Referred By Fred guidry Referred To Contact Neurological Surgery Diagnoses Right acoustic neuroma (HCC) Tyrone Tenorio MD [address] [place] [address] Referral ID Status Reason Start Date Expiration Date Visits Requested Visits Authorized [id number] Pending Review Specialty Services Required 07/30/[phone] Question Answer Referral Priority Within 10 days (routine) Where should this appointment be scheduled? [facility] What condition is the patient being seen for? Brain Tumor Comments Right vestibular schwannoma mild increase in size very small fluid space between tumor and brainstem. Consideration for stereotactic radiation. Reason for Visit * Reason Comments Follow Up Encounter Details Date Type Department Care Team ([facility] st Contact Info) Description 07/30/2023 11:00 AM EDT Office Visit Otolaryngology/Head & Neck/Facial Plastic Surgery [address] [place] [address] Tyrone Tenorio MD [address] [place] [address] Right acoustic neuroma (HCC)* Allergies Active Allergy Reactions Criticality Noted Date Comments [place] Oil 02/27/2021 Other reaction(s): ANAPHYLACTIC Ciprofloxacin Rash [...] as of this encounter (statuses as of 07/30/2023) Medications Medication Sig Dispensed Refills Start Date End Date Status amoxicillin (AMOXIL) 500 MG Capsule TAKE 4 CAPSULES BY MOUTH 1 HOUR PRIOR TO APPOINTMENT 4 Cap 3 05/10/2019 Active Meclizine HCl 25 MG Oral Tablet (Antivert) Take 1 Tab by mouth 3 times a day as needed for Dizziness. 30 Tab 1 11/13/2020 Active Ondansetron HCl 8 MG Oral TabletIndications :EGFR-related lung cancer (HCC) Take 1 Tab by mouth every 8 hours as needed for Nausea. 30 Tab 2 11/13/2020 Active Famotidine 20 MG Oral Tablet (Pepcid)Indicatio ns:Nausea without vomiting,Burping Take 1 Tablet by mouth 2 times a day as needed for Heartburn. 60 Tablet 5 04/10/2021 Active Colchicine 0.6 MG Oral Tablet TAKE 1 TABLET BY MOUTH 2 TIMES A DAY NEEDED FOR FLARE 60 Tablet 1 07/19/2021 Active Prochlorperazine Maleate 10 MG Oral Tablet (Compazine)Indica tions:EGFR-relate d lung cancer (HCC) Take by mouth 1 Tablet every 6 hours as needed for Nausea. 30 Tablet 2 10/28/2021 Active Fluticasone Propionate 50 MCG/ACT Nasal Suspension (Flonase)Indicati ons:ETD (Eustachian tube dysfunction), right Administer 2 Sprays into each nostril in the morning. 48 mL 1 04/16/2022 Active Vitamin D3 50 MCG (2000 UT) Oral Capsule Take 1 Capsule by mouth in the morning. 90 Capsule 3 08/25/2022 Active Potassium Citrate ER 10 MEQ (1080 MG) Oral Tablet Extended Release (potassium citrate-10)Indica tions:Nephrolithi asis,Stage 3 chronic kidney disease, unspecified whether stage 3a or 3b CKD (HCC) Take 1 Tablet by mouth in the morning and 1 Tablet before bedtime. 180 Tablet 2 08/28/2022 Active Metoprolol Succinate ER 50 MG Oral Tablet Extended Release 24 Hour (toPROL XL)Indications:HT N, goal below 150/90 Take 1 Tablet by mouth in the morning. 90 Tablet 3 10/20/2022 Active Eliquis 5 MG Oral TabletIndications :Pulmonary embolism and infarction (HCC) Take 1 Tablet by mouth in the morning and 1 Tablet before bedtime. 180 Tablet 1 10/20/2022 Active tiZANidine HCl 4 MG Oral CapsuleIndication s:Spasm of muscle Take 1 Capsule by mouth 3 times a day as needed for Muscle spasms. 270 Capsule 3 12/05/2022 Active amLODIPine Besylate 10 MG Oral Tablet (Norvasc)Indicati ons:Essential hypertension with goal blood pressure less than 140/90 Take 1 Tablet by mouth in the morning. 90 Tablet 2 12/18/2022 Active hydroCHLOROthiazi de 12.5 MG Oral Tablet (Hydrodiuril)Ju cations:Essential hypertension with goal blood pressure less than 140/90 Take 1 Tablet by mouth in the morning. 90 Tablet 3 03/09/2023 Active Fexofenadine HCl 180 MG Oral Tablet (Sahley) Take 1 Tablet by mouth daily as needed for Allergies. 90 Tablet 3 03/13/2023 Active Albuterol Sulfate HFA 108 (90 Base) MCG/ACT Inhalation Aerosol SolutionIndicatio ns:SOB (shortness of breath) on exertion Inhale 2 Puffs by mouth in the morning and 2 Puffs at noon and 2 Puffs in the evening and 2 Puffs before bedtime. 54 g 1 03/13/2023 Active Lisinopril 40 MG Oral TabletIndications :HTN, goal below 150/90 Take 1 Tablet by [...] the morning. 90 Tablet 1 07/20/2023 Active Vitamin B-2 100 MG Oral Tablet (Riboflavin) 0 06/23/2023 4 Discontinue d(Medicatio n List Clean Up) Hospital, Clinic, or Other Facility Administered Medication Ordered Dose Route Frequency Start Date End Date Status albuterol (PROVENTIL HFA) inhaler 4 PuffIndications:SOB (shortness of breath) 4 Puff IN Q4H PRN 01/23/2017 Act jacinta documented as of this encounter (statuses as of 07/30/2023) Active Problems Problem Noted Date Diagnosed Date Closed fracture of neck of right femur [...] as of this encounter (statuses as of 07/30/2023) Resolved Problems Problem Noted Date Diagnosed Date [...] as of this encounter (statuses as of 07/30/2023) Immunizations Name Administration Dates Next Due COVID-19 mRNA, LNP-s, No Pre serve, 2-Dose Series (Explain My Surgery) 08/26/2021,03/29/2021,07/28/2020,07/02 COVID-19, MRNA-LNP, 23-24, P F, 30 MCG/0.3 mL, 12 YRS AND ABOVE, IM ([employer]-Comirnaty) 04/07/2023 Covid-19, Mrna, Lnp-s, Pf, B ivalent, [...] as of this encounter Progress Notes * Tyrone Tenorio MD - 07/30/2023 5:48 PM EDT CLINIC NOTES Otolaryngology/Head & Neck/Facial Plastic Surgery [address] [facility] [address] Dianne Aguayo : 1940 OTOLARYNGOLOGY OUTPATIENT NOTE 07/30/2023 HISTORY OF PRESENT ILLNESS: 82-year-old female coming in today to check her ears. She has a historyof right vestibular schwannoma and previously had discussion regarding continued follow-up or consideration of possible stereotactic radiation. Recent MRI reportedly without change in size of tumor si nce last check. She notes no obvious change of hearing in the interim. EXAM: Awake, alert, in no acute distress. Ears: Examination of the ears revealed that the auricles were normally formed with no lesions. The external auditory canals were cleaned of any obstructing cerumen. The tympanic membranes were intactand freely mobile to pneumatoscopy. There are no significant retraction pockets. There is no inflammation visualized. No effusions are seen. Cranial nerve VII intact bilaterally Audiogram: Right Ear: mild/moderate, to severe, downsloping sensorineural hearing loss, speech discrimination is 76 percent at 90dB. Left Ear: mild, to moderate/severe, downsloping sensorineural hearing loss, speech discrimination is 88 percent at 80dB. ASSESSMENT AND PLAN: 82-year-old female with right vestibular schwannoma. Recent MRI reportedly without change in size. When comparing to original MRI less fluid space between cap of tumor in brainstem. Again discussed referral to neuro surgery to discuss options. No obvious change in her hearing would not expect impending symptoms from tumor, more the concern is if tumor became significantly larger would reduce possibility of stereotactic radiation has treatment. She will call with any questions plan to otherwise follow up in 6 months to recheck. Tyrone Tenorio MD Department of Otolaryngology 07/30/2023 5:48 PM documented in this encounter Plan of Treatment Upcoming Encounters Date Type Department Care Team (Latest Contact Info) Description 08/25/2023 11:00 AM EDT Immunization/Injec tion Hematology/Oncology Treatment, [place] [address] [facility] [place] [phone] Nurse, Med [address] [facility] [place] [address] 09/08/2023 10:45 AM EDT Imaging Radiology [facility], [place] [address] [facility] [place] [address] 09/17/2023 10:45 AM EDT Office Visit Hematology/Oncology [facility] [address] [facility] [place] [address] Kush Linton MD [address] [place] [address] 09/29/2023 1:00 PM EDT Office Visit Family Practice [facility] [place] [address] [place] [address] Hank Ivey, [address] [place] [address] 09/30/2023 12:30 PM EDT Office Visit Gynecology/Oncology , [place] [address] [place], [place] [phone] Ama Ruano PA-C [address] [place], [place] [id number] 10/21/2023 8:30 AM EDT Office Visit Cardiology, [facility] [address] [place] [address] Sarah Mohan CRNP [address] [place] [address] 10/27/2023 3:00 PM EDT Office Visit Nephrology, [facility] [address] [place] [address] Shirley Alicea PA-C [address] [facility] [place] [address] 11/09/2023 10:00 AM EDT Nurse Only Ancillary [facility] [address] [place] [address] Im, Nurse Annual Wellness [facility] [address] [place] [address] 11/20/2023 9:30 AM EDT Hospital Encounter ENDO [facility], Endoscopy Room [facility] [address] [place] [phone] Rogelio Yeh MD [address] [place] [address] 11/20/2023 9:30 AM EDT - 11/20/2023 10:00 AM EDT Surgery ENDO [facility], Endoscopy Room [facility] [address] [place] [phone] Rogelio Yeh MD [address] [place] [address] COLONOSCOPY FLEXIBLE PROXIMAL DIAGNOSTIC 01/28/2024 11:00 AM EDT Office Visit Otolaryngology/Head & Neck/Facial Plastic Surgery [address] [place] [address] Tyrone Tenorio MD [address] [place] [address] 03/03/2024 11:00 AM EDT Office Visit [facility]umatology [address] [place] [address] Avinash Rasmussen MD [facility] [place] [address] Scheduled Orders Name Type Priority Associated Diagnoses Orde r Schedule AUDIOLOGY LAB Procedures Routine Right acoustic neuroma (HCC) Ordered: 07/30/2023 Scheduled Procedures Name Priority Associated Diagnoses Date/Ti me COLONOSCOPY FLEXIBLE PROXIMAL DIAGNOSTIC Recall History of colon polyps Tubular adenoma 11/20/2023 9:30 AM EDT Scheduled Referrals Name Type Priority Associated Diagnoses Order Schedule NEUROSURGERY ADULT REFERRAL OP Referral Within 10 days (routine) Right acoustic neuroma (HCC) Ordered: 07/30/2023 Health Maintenance Due Date Last Done Comments COLONOSCOPY-EVERY 3 YRS AGES 18-100 04/23/2023 04/23/2020, 04/23/2020, 04/29/2016, Additional history exists Albumin/Creatinine Ratio 05/12/2023 023, 02/05/2021, 01/06/2020, Additional history exists CKD PHOS USE SMARTSET 45841 07/29/2023 07/28/2022, 06/24/2021, 05/10/2019, Additional history exists Depression Screening 11/01/2023 10/31/2022 GFR 11/09/2023 05/11/2023, 12/2022, 08/06/2022, Additional history exists CKD HGB USE SMARTSET 21511 01/10/202401/09, 01/09/2023, 08/06/2022, Additional history exists DTaP,Tdap,and Td Vaccines (2 [...] D LEVEL ONCE IN A LIFETIME-USE SMARTSET# 10104 Completed 05/11/2023, 07/28/2022, 06/24/2021, Additional history exists [...] this encounter Medical Devices Implanted Type Area Manufacturing Area Manager Device Identifier Shelf Expiration Date Model / Serial / Lot 7fr X 24cm Bard Inlay [place] Ureteral Stent Implanted:Qty : 1 on 04/04/2014 by Sawyer Parson MD at OR [facility] Left: Ureter INACTIVE CR [employer] 10/01/2018 [id number] / / [id number] Port Power Mri W/8fr Cath - [id number] Implanted:Qty : 1 on 05/23/2015 by Nay Hernandez MD at OR [facility] Right: Subclavian CR BARD : PERIPHERAL VASCULAR 08/29/2016 [id number] / / [id number] documented as of this encounter Visit Diagnoses [...] and were consensually agreed upon. Care Teams Funeral Driver Relationship Specialty Start Date End Date Hank Ivey DO [address] [place] [address] PCP - General Family Medicine 10/07/16 documented as of this encounter
--- OUTSIDE RECORDS SUMMARY | 2023-09-27 13:13 | External Medical Summary | Summary of Care ---
Author Name Unknown Organization [facility] Address [address] [place] [address] Phone [phone] Care Team Providers Care Clinical Review Specialist Name Role Phone Hank Ivey DO Primary Care Provider [phone] Reason for Visit * Reason Onset Date Comments Medication Refill 08/31/2023 Encounter Details Date Type Department Care Team ([facility] Contact Info) Description 08/31/2023 Telephone Family Practice [facility] [address] [place] [address] Hank Ivey DO [address] [place] [address] Medication Refill Allergies Active Allergy Reactions Criticality Noted Date Comments [place] Oil 02/27/2021 Other reaction(s): ANAPHYLACTIC Ciprofloxacin [...] as of this encounter (statuses as of 09/01/2023) Medications Medication Sig Dispensed Refills Start Date [...] Tablet (Compazine)Indicatio ns:EGFR-related lung cancer (HCC) Take by mouth 1 [...] on tongue. 30 Tablet 0 08/20/2023 Active Hospital, Clinic, or Other Facility Administered Medication Ordered Dose Route Frequency Start Date End Date Status albuterol (PROVENTIL HFA) inhaler 4 PuffIndications:SOB (shortness of breath) 4 Puff IN Q4H PRN 01/23/2017 Act jacinta documented as of this encounter (statuses as of 09/01/2023) Active Problems Problem Noted Date Diagnosed Date [...] as of this encounter (statuses as of 09/01/2023) Resolved Problems Problem Noted Date Diagnosed Date [...] as of this encounter (statuses as of 09/01/2023) Immunizations Name Administration Dates Next Due COVID-19 mRNA, LNP-s, No Pre serve, 2-Dose Series ([employer]) 08/26/2021,03/29/2021,07/28/2020,07/02 COVID-19, MRNA-LNP, 23-24, P F, 30 MCG/0.3 mL, 12 YRS AND ABOVE, IM ([facility]) 04/07/2023 Covid-19, Mrna, Lnp-s, Pf, B ivalent, 30 Mcg, IM, 12 yrs and above (Foody) 02/14/2022 Pneumococcal Conjugate Vacc, 13 Valent (Prevnar) [...] encounter Miscellaneous Notes * Telephone Encounter - Radha Mckenna patient placement coordinator - 08/31/2023 4:38 PM EDT RE Ondansetron 4 MG Oral Tablet Disintegrating (Zofran This is not working. Please send rx for the compazine Please advise Thank you for your assistance Radha Mckenna Leather Piece Inspector II [facility] ([facility]) (Formerly Telepharmacy) 08/31/2023,4:39 PM documented in this encounter Plan of Treatment Upcoming Encounters Date Type Department Care Team (Latest Contact Info) Description 09/08/2023 10:45 AM EDT Imaging Radiology [address] [address] 09/09/2023 3:00 PM EDT Office Visit Radiation Oncology, [place] [address] [place] [address] Prakash Vyas MD [address] [place] [address] 09/17/2023 10:45 AM EDT Office Visit Hematology/Oncology [facility] [address] [place] [phone] Kush Linton MD [address] [place] [address] 09/29/2023 1:00 PM EDT Office Visit Family Practice [facility] [place] [address] [place] [address] Hank Ivey, [address] [facility] [place] [address] 09/30/2023 12:30 PM EDT Office Visit Gynecology/Oncology , [place] [address] [place] [address] Ama Ruano PA-C [address] [place] [address] 10/06/2023 1:00 PM EDT Immunization/Injec tion Hematology/Oncology Treatment, [place] [address] [place] [phone] Nurse, Med [address] [place] [address] 10/21/2023 8:30 AM EDT Office Visit Cardiology, [facility] [address] [facility] [place] [address] Sarah Mohan CRNP [address] [facility] [place] [address] 10/27/2023 3:00 PM EDT Office Visit Nephrology, [facility] [address] [place] [address] ZemaitisShirley PA-C [address] [place] [address] 11/09/2023 10:00 AM EDT Nurse Only Ancillary [facility] [place] [address] [place] [address] Im, Nurse Annual Wellness [facility] [address] [place] [address] 11/20/2023 9:30 AM EDT Hospital Encounter ENDO [facility], Endoscopy Room [facility] [address] [place] [phone] Rogelio Yeh MD [address] [place] [address] 11/20/2023 9:30 AM EDT - 11/20/2023 10:00 AM EDT Surgery ENDO [facility], Endoscopy Room [facility] [address] [place] [phone] Rogelio Yeh MD [address] [place] [address] COLONOSCOPY FLEXIBLE PROXIMAL DIAGNOSTIC 11/23/2023 9:20 AM EDT Office Visit Family Practice [facility] [place] [address] [facility] [place] [address] Esperanza Jeffery DO [address] [facility] [place] [address] 01/28/2024 11:00 AM EDT Office Visit Otolaryngology/Head & Neck/Facial Plastic Surgery [address] [place] [address] Tyrone Tenorio MD [address] [place] [address] 03/03/2024 11:00 AM EDT Office Visit Rheumatology [facility] [address] [facility] [place] [address] Avinash Rasmussen MD [facility] [place] [address] Scheduled Procedures Name Priority Associated Diagnoses Date/Ti me COLONOSCOPY FLEXIBLE PROXIMAL DIAGNOSTIC Recall History of colon polyps Tubular adenoma 11/20/2023 9:30 AM EDT Health Maintenance Due Date Last Done Comments Colonoscopy 04/23/2023 04/23/2020, 04/04, 04/29/2016, Additional history exists Albumin/Creatinine Ratio 05/12/2023 023, 02/05/2021, 01/06/2020, Additional history exists CKD PHOS USE SMARTSET 75343 07/29/2023 07/28/2022, 06/24/2021, 05/10/2019, Additional history exists Depression Screening 11/01/2023 10/31/2022 GFR 02/19/2024 08/20/2023, 12/2023, 01/09/2023, Additional history exists CKD HGB USE SMARTSET 87450 08/19/202408/19, 08/20/2023, 01/09/2023, Additional history exists DTaP,Tdap,and [...] D LEVEL ONCE IN A LIFETIME-USE SMARTSET# 84714 Completed 05/11/2023, 07/28/2022, 06/24/2021, Additional history exists [...] this encounter Medical Devices Implanted Type Area Bicycle Taxi Driver Device Identifier Shelf Expiration Date Model / Serial / Lot 7fr X 24cm Bard Inlay [place] Ureteral Stent Implanted:Qty : 1 on 04/04/2014 by Sawyer Parson MD at OR [facility] Left: Ureter INACTIVE CR [employer] 10/01/2018 [id number] / / [id number] Port Power Mri W/8fr Cath - [id number] Implanted:Qty : 1 on 05/23/2015 by Nay Hernandez MD at OR [facility] Right: Subclavian CR BARD : PERIPHERAL VASCULAR 08/29/2016 [id number] / / [id number] documented as of this encounter Advance Directives [...] and were consensually agreed upon. Care Teams Clinical Review Specialist Relationship Specialty Start Date End Date Hank Ivey DO [address] [facility] [place] [address] PCP - General Family Medicine 10/07/16 documented as of this encounter
--- OUTSIDE RECORDS SUMMARY | 2023-09-27 13:13 | External Medical Summary ---
Author Name Unknown Address Unknown Organization K09:[facility] [place] [address] Laboratory Report Ordering Provider Test Date Status LORENZO VARELA 08/20/2023 12:34:54 Final Observation Date Value Abnormality Reference (Units ) Status BUN 08/20/2023 12:34:54 32 Above high normal 6-20 (mg/dL) Final Creatinine 08/20/2023 12:34:54 1.2 Above high normal 0.5-1.0 (mg/dL) Final Glomerular filtration rate/1.73 sq M.predicted [Volume Rate/Area] in Serum, Plasma or Blood by Creatinine-based formula (CKD-EPI) 08/20/2023 12:34:54 45 Below low normal >=60 (mL/min) Final eGFR is calculated based on the CKD-EPI 2020 equation Sodium 08/20/2023 12:34:54 145 135-146 (m mol/L) Final Potassium 08/20/2023 12:34:54 4.3 3.5-5.1 (m mol/L) Final Cl 08/20/2023 12:34:54 106 98-107 (mm ol/L) Final CO2 08/20/2023 12:34:54 27 22-32 (mmo l/L) Final Anion gap 08/20/2023 12:34:54 12 7-15 (mmol /L) Final Glucose 08/20/2023 12:34:54 111 70-120 (mg /dL) Final Albumin 08/20/2023 12:34:54 4.2 3.8-5.0 (g /dL) Final AST (Aspartate aminotransferase) 08/20/2023 12:34:54 23 10-35 (U/L) Fin al Alk Phos 08/20/2023 12:34:54 170 Above high normal 35 -130 (U/L) Final Bilirubin, Total 08/20/2023 12:34:54 0.7 <=1 .2 (mg/dL) Final Calcium 08/20/2023 12:34:54 10.3 Above high normal 8. 4-10.2 (mg/dL) Final Protein 08/20/2023 12:34:54 6.2 6.0-8.3 (g /dL) Final ALT (Alanine aminotransferase) 08/20/2023 12:34:54 20 10-35 (U/L) Ismael sue Performing Location [facility] [address] [place] [address]
--- OUTSIDE RECORDS SUMMARY | 2023-09-27 13:13 | External Medical Summary | Summary of Care ---
Author Name Unknown Organization [facility] Address [address] [place] [address] Phone [phone] Care Team Providers Care Animation Camera Operator Name Role Phone Hank Ivey DO Primary Care Provider [phone] Reason for Visit * Reason Onset Date Comments Medication Refill 08/31/2023 Encounter Details Date Type Department Care Team ([facility] Contact Info) Description 08/31/2023 Telephone Family Practice [facility] [address] [place] [address] Hank Ivey DO [address] [place] [address] Medication Refill Allergies Active Allergy Reactions Criticality Noted Date Comments Lenora Oil 02/27/2021 Other reaction(s): ANAPHYLACTIC Ciprofloxacin Rash [...] mRNA, LNP-s, No Pre serve, 2-Dose Series ([facility]I) 08/26/2021,03/29/2021,07/28/2020,07/02 COVID-19, MRNA-LNP, 23-24, P F, 30 MCG/0.3 mL, 12 YRS AND ABOVE, IM ([employer]) 04/07/2023 Covid-19, Mrna, Lnp-s, Pf, B ivalent, 30 Mcg, IM, 12 yrs and above ([facility]I) 02/14/2022 Pneumococcal Conjugate Vacc, 13 Valent (Prevnar) [...] Miscellaneous Notes * Telephone Encounter - Krystal Mohan LPN - 09/01/2023 11:19 AM EDT Please advise if okay for compazine * Telephone Encounter - Radha Mckenna supervisor sterile processing - 08/31/2023 4:38 PM EDT RE Ondansetron 4 MG Oral Tablet Disintegrating (Zofran This is not working. Please send rx for the compazine Please advise Thank you for your assistance Radha Mckenna Management Assistant II [facility] ([facility]) (Formerly Telepharmacy) 08/31/2023,4:39 PM documented in this encounter Plan of Treatment Upcoming Encounters Date Type Department Care Team (Latest Contact Info) Description 09/08/2023 10:45 AM EDT [address] [address] 09/09/2023 3:00 PM EDT Office Visit Radiation Oncology, [place] [address] [place] [facility] [place] [address] Prakash Vyas MD [address] [place] [address] 09/17/2023 10:45 AM EDT Office Visit Hematology/Oncology [facility] [address] [facility] [place] [phone] Kush Linton MD [address] [facility] [place] [address] 09/29/2023 1:00 PM EDT Office Visit Family Practice [facility] [address] [facility] [place] [address] Hank Ivey, [address] [place], [place] [address] 09/30/2023 12:30 PM EDT Office Visit Gynecology/Oncology , [place] [address] [place] [address] Ama Ruano PA-C [address] [place] [address] 10/06/2023 1:00 PM EDT Immunization/Injec tion Hematology/Oncology Treatment, [place] [facility] [phone] Nurse, Med [address] [facility] [place] [address] 10/21/2023 8:30 AM EDT Office Visit Cardiology, [facility] [address] [place] [address] Sarah Moahn CRNP [address] [place] [address] 10/27/2023 3:00 PM EDT Office Visit Nephrology, [facility] [address] [facility] [place] [address] Shirley Alicea PA-C [address] [place] [address] 11/09/2023 10:00 AM EDT Nurse Only Ancillary [facility] [place] [address] [place] [address] Im, Nurse Annual Wellness [facility] [address] [place] [address] 11/20/2023 9:30 AM EDT Hospital Encounter ENDO [facility], Endoscopy Room [facility] [address] [place] [address] Rogelio Yeh MD [address] [place] [address] 11/20/2023 9:30 AM EDT - 11/20/2023 10:00 AM EDT Surgery ENDO [facility], Endoscopy Room [facility] [address] [place] [phone] Rogelio Yeh MD [address] [place] [address] COLONOSCOPY FLEXIBLE PROXIMAL DIAGNOSTIC 11/23/2023 9:20 AM EDT Office Visit Family Practice [facility] [place] [address] [place] [address] Esperanza Jeffery, [address] [place] [address] 01/28/2024 11:00 AM EDT Office Visit Otolaryngology/Head & Neck/Facial Plastic Surgery [address] [place] [address] Tyrone Tenorio MD [address] [place] [address] 03/03/2024 11:00 AM EDT Office Visit Rheumatology [place] [id number] [place] [address] Avinash Rasmussen MD [facility] [employer] [place] [address] Scheduled Procedures Name Priority Associated Diagnoses Date/Ti me COLONOSCOPY FLEXIBLE PROXIMAL DIAGNOSTIC Recall History of colon polyps Tubular adenoma 11/20/2023 9:30 AM EDT Health Maintenance Due Date Last Done Comments Colonoscopy 04/23/2023 04/23/2020, 04/04, 04/29/2016, Additional history exists Albumin/Creatinine Ratio 05/12/2023 023, 02/05/2021, 01/06/2020, Additional history exists CKD PHOS USE SMARTSET 17631 07/29/2023 07/28/2022, 06/24/2021, 05/10/2019, Additional history exists Depression Screening 11/01/2023 10/31/2022 GFR 02/19/2024 08/20/2023, 12/2023, 01/09/2023, Additional history exists CKD HGB USE SMARTSET 06658 08/19/202408/19, 08/20/2023, 01/09/2023, Additional history exists DTaP,Tdap,and [...] D LEVEL ONCE IN A LIFETIME-USE SMARTSET# 49630 Completed 05/11/2023, 07/28/2022, 06/24/2021, Additional history exists [...] this encounter Medical Devices Implanted Type Area Cook Helper Preserves Device Identifier Shelf Expiration Date Model / Serial / Lot 7fr X 24cm Bard Inlay [place] Ureteral Stent Implanted:Qty : 1 on 04/04/2014 by Sawyer Parson MD at OR [facility] Left: Ureter INACTIVE [employer] 10/01/2018 [id number] / / [id number] Port Power Mri W/8fr Cath - [id number] Implanted:Qty : 1 on 05/23/2015 by Nay Hernandez MD at OR [facility] Right: Subclavian CR BARD : PERIPHERAL VASCULAR 08/29/2016 [id number] / / [id number] documented as of this encounter Advance Directives [...] and were consensually agreed upon. Care Teams Animation Camera Operator Relationship Specialty Start Date End Date Hank Ivey DO [address] [place] [address] PCP - General Family Medicine 10/07/16 documented as of this encounter
--- OUTSIDE RECORDS SUMMARY | 2023-09-27 13:13 | External Medical Summary | Summary of Care ---
Author Name Unknown Organization [facility] Address [address] [place] [address] Phone [phone] Care Team Providers Care Thermite Bomb Loader Name Role Phone Loni Hank Cheyenne GUTIERREZ Primary Care Provider [phone] Reason for Visit * Reason Comments Outpatient Testing Encounter Details Date Type Department Care Team (Latest Contact Info) Description 08/20/2023 12:50 PM EDT Laboratory Laboratory [facility] [address] [place] [address] [place], [address] [place] [address] Nausea without vomiting; Diarrhea, unspecified type; Mediastinal lymphadenopathy Allergies Active Allergy Reactions Criticality Noted Date Comments [place] Oil 02/27/2021 Other reaction(s): ANAPHYLACTIC Ciprofloxacin Rash [...] as of this encounter (statuses as of 08/20/2023) Medications Medication Sig Dispensed Refills Start Date [...] as of this encounter (statuses as of 08/20/2023) Active Problems Problem Noted Date Diagnosed Date [...] as of this encounter (statuses as of 08/20/2023) Resolved Problems Problem Noted Date Diagnosed Date [...] as of this encounter (statuses as of 08/20/2023) Immunizations Name Administration Dates Next Due COVID-19 mRNA, LNP-s, No Pre serve, 2-Dose Series ([employer]) 08/26/2021,03/29/2021,07/28/2020,07/02 COVID-19, MRNA-LNP, 23-24, P F, 30 MCG/0.3 mL, 12 YRS AND ABOVE, IM ([facility]) 04/07/2023 Covid-19, Mrna, Lnp-s, Pf, B ivalent, 30 Mcg, IM, 12 yrs and above ([employer]) 02/14/2022 Pneumococcal Conjugate Vacc, 13 Valent (Prevnar) [...] 11:00 AM EDT Immunization/Injec tion Hematology/Oncology Treatment, [place] [address] [place] [phone] Nurse, Med 4 [address] [place] [address] 09/08/2023 10:45 AM EDT Imaging Radiology [facility] 1st [facility], [place] [address] [facility] [address] 09/09/2023 3:00 PM EDT Office Visit Radiation Oncology, [place] [address] [place] [address] Prakash Vyas MD [address] [place] [address] 09/17/2023 10:45 AM EDT Office Visit Hematology/Oncology [facility] [address] [place] [phone] Kush Linton MD [address] [place] [address] 09/29/2023 1:00 PM EDT Office Visit Family Practice [facility] [address] [place] [address] Hank Ivey, DO [address] [place] [address] 09/30/2023 12:30 PM EDT Office Visit Gynecology/Oncology , [place] [address] [place] [address] Ama Ruano PA-C [address] [place] [address] 10/21/2023 8:30 AM EDT Office Visit Cardiology, [facility] [address] [place] [address] Sarah Mohan CRNP [address] [place] [address] 10/27/2023 3:00 PM EDT Office Visit Nephrology, [facility] [address] [facility] [place] [address] ZemaitisShirley PA-C [address] [facility] [place] [address] 11/09/2023 10:00 AM EDT Nurse Only Ancillary [facility] [place] [address] [facility] [place] [address] Im, Nurse Annual Wellness [facility] [address] [facility] [place] [address] 11/20/2023 9:30 AM EDT Hospital Encounter ENDO [facility], Endoscopy Room [facility] [address] [place] [phone] Rogelio Yeh MD [address] [place] [address] 11/20/2023 9:30 AM EDT - 11/20/2023 10:00 AM EDT Surgery ENDO [facility], Endoscopy Room [facility] [address] [place] [phone] Rogelio Yeh MD [address] [place] [address] COLONOSCOPY FLEXIBLE PROXIMAL DIAGNOSTIC 11/23/2023 9:20 AM EDT Office Visit Family Practice [facility] [address] [facility] [place] [address] Esperanza Jeffery DO 200 [facility] [place] [address] 01/28/2024 11:00 AM EDT Office Visit Otolaryngology/Head & Neck/Facial Plastic Surgery [address] [place] [address] Tyrone Tenorio MD [address] [place] [address] 03/03/2024 11:00 AM EDT Office Visit Rheumatology [place] [phone] [employer] [place] [address] Avinash Rasmussen MD [facility] [place] [address] Pending Results Name Type Priority Associated Diagnoses Date /Time COMPREHENSIVE METABOLIC PANEL Lab Routine Nausea without vomiting Diarrhea, unspecified type 08/20/2023 12:34 PM EDT CBC WITH WBC DIFFERENTIAL Lab Routine Mediastinal lymphadenopathy 08/20/2023 12:34 PM EDT CBC Lab Routine Mediastinal lymphadenopathy 08/20/2023 12:34 PM EDT DIFFERENTIAL, AUTOMATED Lab Routine Mediastinal lymphadenopathy 08/20/2023 12:34 PM EDT Scheduled Procedures Name Priority Associated Diagnoses Date/Ti me COLONOSCOPY FLEXIBLE PROXIMAL DIAGNOSTIC Recall History of colon polyps Tubular adenoma 11/20/2023 9:30 AM EDT Health Maintenance Due Date Last Done Comments COLONOSCOPY-EVERY 3 YRS AGES 18-100 04/23/2023 04/23/2020, 04/23/2020, 04/29/2016, Additional history exists Albumin/Creatinine Ratio 05/12/2023 023, 02/05/2021, 01/06/2020, Additional history exists CKD PHOS USE SMARTSET 62209 07/29/2023 07/28/2022, 06/24/2021, 05/10/2019, Additional history exists Depression Screening 11/01/2023 10/31/2022 GFR 11/09/2023 05/11/2023, 12/2022, 08/06/2022, Additional history exists CKD HGB USE SMARTSET 76925 01/10/202401/09, 01/09/2023, 08/06/2022, Additional history exists DTaP,Tdap,and [...] D LEVEL ONCE IN A LIFETIME-USE SMARTSET# 95611 Completed 05/11/2023, 07/28/2022, 06/24/2021, Additional history exists [...] this encounter Medical Devices Implanted Type Area Retail Brand Ambassador Device Identifier Shelf Expiration Date Model / Serial / Lot 7fr X 24cm Bard Inlay [place] Ureteral Stent Implanted:Qty : 1 on 04/04/2014 by Sawyer Parson MD at OR [facility] Left: Ureter INACTIVE [employer] 10/01/2018 [id number] / / [id number] Port Power Mri W/8fr Cath - [id number] Implanted:Qty : 1 on 05/23/2015 by Nay Hernandez MD at OR [facility] Right: Subclavian CR BARD : PERIPHERAL VASCULAR 08/29/2016 [id number] / / [id number] documented as of this encounter Visit Diagnoses Diagnosis Nausea without vomiting Diarrhea, unspecified type Mediastinal lymphadenopathy Enlargement of lymph nodes History of colon polyps Personal history of [...] and were consensually agreed upon. Care Teams Thermite Bomb Loader Relationship Specialty Start Date End Date Hank Ivey DO [address] [facility] [place] [address] PCP - General Family Medicine 10/07/16 documented as of this encounter
--- OUTSIDE RECORDS SUMMARY | 2023-09-27 13:13 | External Medical Summary | Summary of Care ---
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 [facility] What is the preferred location to have this test performed? [facility] Comments Discussion of SRS to enlarging R acoustic neuroma Reason for Visit * Reason Comments NEW PATIENT * Evaluate & Treat - Unlimited Visits (Within 10 days (routine)) - Pending Review Specialty Diagnoses / Procedures Referred By Fred guidry Referred To Contact Neurological Surgery Diagnoses Right acoustic neuroma (HCC) Tyrone Tenorio MD [address] [place] [address] Referral ID Status Reason Start Date Expiration Date Visits Requested Visits Authorized [id number] Pending Review Specialty Services Required 07/30/[phone] Encounter Details Date Type Department Care Team (Late st Contact Info) Description 08/12/2023 2:00 PM EDT Office Visit Neurosurgery, [place] [address] [place] [address] Paras Boogie MD [address] [place] [address] Unilateral vestibular schwannoma (HCC)*; Asymmetric SNHL (sensorineural hearing loss) Allergies Active Allergy Reactions Criticality Noted Date Comments [place] [employer] 02/27/2021 Other reaction(s): ANAPHYLACTIC Ciprofloxacin Rash [...] as of this encounter (statuses as of 08/15/2023) Medications Medication Sig Dispensed Refills Start Date [...] the morning. 90 Tablet 1 07/20/2023 Active Hospital, Clinic, or Other Facility Administered Medication Ordered Dose Route Frequency Start Date End Date Status albuterol (PROVENTIL HFA) inhaler 4 PuffIndications:SOB (shortness of breath) 4 Puff IN Q4H PRN 01/23/2017 Act jacinta documented as of this encounter (statuses as of 08/15/2023) Active Problems Problem Noted Date Diagnosed Date [...] as of this encounter (statuses as of 08/15/2023) Resolved Problems Problem Noted Date Diagnosed Date [...] dependence 08/02/2014 11/03/2018 Rotator cuff tear, left 08/02/2014 12/2 10/2017 Rotator cuff tear, right 08/02/2014 Calculus of [...] as of this encounter (statuses as of 08/15/2023) Immunizations Name Administration Dates Next Due COVID-19 mRNA, LNP-s, No Pre serve, 2-Dose Series ([employer]) 08/26/2021,03/29/2021,07/28/2020,07/02 COVID-19, MRNA-LNP, 23-24, P F, 30 MCG/0.3 mL, 12 YRS AND ABOVE, IM ([facility]) 04/07/2023 Covid-19, Mrna, Lnp-s, Pf, B ivalent, [...] Sign Reading Time Taken Comments Blood Pressure 172/76 08/12/2023 1:46 PM EDT Pulse 71 08/12/2023 1:46 PM EDT Temperature 36.5 C (97.7 F) 08/12/2023 1:46 PM ED T Respiratory Rate - - Oxygen Saturation 98% 08/12/2023 1:46 PM EDT Inhaled Oxygen Concentration - - Weight 88.8 kg (195 lb 11.2 oz) 08/12/2023 1:46 PM EDT Height 161.3 cm (5' 3.5") 08/12/2023 1:46 PM EDT Body Mass Index 34.12 08/12/2023 1:46 PM EDT documented in this encounter Functional Status [...] as of this encounter Progress Notes * Ortiz Farley PA-Colleen - 08/12/2023 2:38 PM EDT PROGRESS NOTE - Neurosurgery [facility], [facility] [address] Name: Dianne Aguayo Date: 08/12/2023 Time: 2:38 PM Primary Care Provider: Hank Ivey DO Referring Provider: Tyrone Tenorio MD PRESENTING PROBLEM: R SNHL HPI: Dianne Aguayo is a 82 year old female with h/o progressive right sided SNHL, prompting MRI IAC that revealed the R IAC lesion with extension into the CPA c/w vestibular schwannoma. She reports that her hearing loss has been progressive over several years. She had been following with ENT and surveillance imaging has shown interval growth since 2019 with further extension towards the cerebellar peduncle. She denies imbalance or dizziness, other than a h/o episodes of BPPV. Denies headaches, nausea, vomiting, fevers, chills, facial numbness, or changes in mentation/speech. PAST MEDICAL HISTORY: Past Medical History: Diagnosis Date Age-related nuclear cataract of both eyes Allergic rhinitis due to pollen 03/01/2009 Axial hypermetropia of both eyes Benign neoplasm of colon 02/11/2012 COLONOSCOPY FLEXIBLE PROXIMAL DIAGNOSTIC performed by Hasmukh Springer MD at ENDOSCOPY [facility] adenomatous polyps repeat colonoscopy in 6-8 months Benign neoplasm of colon 08/20/2012 COLONOSCOPY AT [facility] WITH DR. SPRINGER, BENIGN POLYPS REPEAT COLONOSCOPY [...] hives Uterine cancer (HCC) 04/16/2015 Complete Hysterectomy PAST SURGICAL HISTORY: Past Surgical History: Procedure Laterality Date CARPAL TUNNEL SURGERY 2000 right hand, at [facility] COLONOSCOPY, DIAGNOSTIC (RECTUM) 03/02/2002 normal-Dr. Roque Tran in [place]. repeat in 10 years. COLONOSCOPY, DIAGNOSTIC (RECTUM) 02/11/2012 COLONOSCOPY FLEXIBLE PROXIMAL DIAGNOSTIC performed by Hasmukh Springer MD at ENDOSCOPY [facility] adenomatous polyps repeat colonoscopy in 6-8 months COLONOSCOPY, DIAGNOSTIC (RECTUM) 08/20/2012 COLONOSCOPY AT [facility] WITH DR. SPRINGER, BENIGN POLYPS REPEAT COLONOSCOPY IN 6-9 MONTHS COLONOSCOPY, DIAGNOSTIC (RECTUM) 03/24/2013 COLONOSCOPY FLEXIBLE PROXIMAL DIAGNOSTIC performed by Hasmukh Springer MD at ENDOSCOPY [facility] COLONOSCOPY, DIAGNOSTIC (RECTUM) 04/29/2016 diverticulosis, repeat 3 yrs/COLONOSCOPY FLEXIBLE PROXIMAL DIAGNOSTIC performed by Fox Cerda MD at ENDOSCOPY [facility] COLONOSCOPY, DIAGNOSTIC (RECTUM) 04/23/2020 diverticulosis, repeat 3 yrs / COLONOSCOPY FLEXIBLE PROXIMAL DIAGNOSTIC performed by Nellie Gimenez DO at ENDOSCOPY [facility] CYSTO/URETERO W/LITHOTRIPSY Left 04/04/2014 CYSTOURETHROSCOPY URETEROSCOPY WITH LITHOTRIPSY AND STENT INSERTION performed by Sawyer Parson MD at [facility] CYSTOSCOPY 02/12/2010 DEXA BODY COMP 1 OR > SITE 01/2009 improving, repeat 3 years. DEXA SCAN/BONE MINERAL AXIAL 03/2002 osteoporosis, improved 3-6% on fosamax, repeat in 2005 DEXA SCAN/BONE MINERAL AXIAL 01/29/2006 improved, repeat 2008 DEXA SCAN/BONE MINERAL AXIAL 02/02/2012 DILATION AND CURETTAGE (D&C) 1978 with polypectomy EXPLORATION OF ABDOMEN N/A 04/16/2015 EXPLORATORY LAPAROTOMY performed by Annabel Turner MD at [facility] FEMUR FX, REPAIR Left 12/2019 FRAGMENT KIDNEY STONE BY SHOCK WAVE 05/2013 Lithotripsy (ESWL) INSER TUNN ACC DEV;5 YRS/OLDER Right 05/23/2015 INSERT TUNNELED CENTRAL VENOUS ACCESS WITH SUBQ PORT performed by Nay Hernandez MD at [facility] KNEE ARTHROSCOPY, DIAGNOSTIC 06/1999 Knee Scope,Diagnostic, Dr Leone LASER SURGERY OF INNER EYE STRANDS Right 05/11/2015 Laser procedure of the RIGHT eye; Dr. Lopez LIGATE/CUT OVIDUCT(S) Tubal Ligation REMOVAL OF ADENOIDS, UNDER AGE 12 Adenoids Removal, <12 Y/O REMOVAL OF BREAST, MODIFIED RADICAL Left 1981 LEFT, Dr Mahad Cortez, [facility] [place] with radiation and chemo REMOVAL OF TONSILS, UNDER AGE 12 Tonsils Removal,<12 Y/O REMOVE CATARACT, INSERT LENS PROSTH Right 05/28/[address] Russell REMOVE CATARACT, INSERT LENS PROSTH Right 11/12/2015 OS REVISE KNEE JOINT REPLACEMENT Right 05/19/2017 THORACOSCOPY W/ INFILTRATE BIOPSY Right 07/19/2019 THORACOSCOPY W/ INFILTRATE BIOPSY performed by Benja Merrill MD at [facility] THORACOSCOPY, DIAGNOSTIC, LUNGS Right 03/12/2016 THORACOSCOPY DIAGNOSTIC WITHOUT BIOPSY performed by Benja Merrill MD at [facility] TOTAL ABD HYSTERECTOMY W/WO REMOVAL OF TUBE(S) N/A 04/16/2015 TOTAL ABDOMINAL HYSTERECTOMY WITH OR WITHOUT TUBES AND OVARIES performed by Annabel Turner MD at [facility] SOCIAL HISTORY: Social History Socioeconomic History Marital status: Spouse name: Palmer Number of children: 2 Years of education: 14 Highest education level: Not on file Occupational History Occupation: retired 10/2002 Comment: [employer] Tobacco Use Smoking status: Never [...] History Narrative born Noé Horan MD in [place] since 1965 Iftikhar Aguayo is her granddaughter Rand Butter for her 5 years older, recovering from [...] on file Housing Stability: Not on file FAMILY HISTORY: Family History Problem Relation Age of Onset Cancer Mother 40 breast Mental Disorder Grandmother (Maternal) Alzheimers Heart Disorder Grandfather (Paternal) Cancer Grandmother (Paternal) colon Diabetes None Stroke None Thyroid Disorder None Eye Problems None Patient denies hx AMD, glaucoma, retinal detachments or blindness Current Outpatient Medications Medication Sig Dispense Refill [...] DAY NEEDED FOR FLARE 60 Tablet 1 Prochlorperazine Maleate 10 MG Oral Tablet (Compazine) Take by mouth 1 Tablet every 6 hours as needed for Nausea. 30 Tablet 2 Fluticasone Propionate 50 MCG/ACT Nasal Suspension (Flonase) [...] mouth in the morning. 90 Tablet 1 Current Facility-Administered Medications Medication Dose Route Frequency Provider Last Rate Last Admin albuterol (PROVENTIL HFA) inhaler 4 Puff 4 Puff Inhalation Q4H PRN Hank Ivey DO 4 Puff at01/27/17 1130 ALLERGIES: Review of patient's allergies indicates: Allergen Reactions Paclitaxel Anaphylaxis Other reaction(s): ANAPHYLACTIC [place] [employer] Other reaction(s): ANAPHYLACTIC Ciprofloxacin Rash Rash [...] Tramadol Nausea/vomiting nausea Other reaction(s): GI SYMPTOMS ROS: A full 14 point ROS was reviewed and are only positive for the above noted pertinent complaints PHYSICAL EXAMINATION: Visit Vital Signs: BP 172/76 | Pulse 71 | Temp 36.5 C (97.7 F) | Ht 1.613 m (5' 3.5") | Wt 88.8 kg (195 lb 11.2 oz) | SpO2 98% | BMI 34.12 kg/m | BSA 1.99 m Gen: Pt found sitting in chair; NAD Psych: Pleasant and cooperative Neuro: AOx3 Cranial Nerves: CN 2,3 - PER CN 3, 4, 6 - EOMI CN 5 - intact facial sensation to light touch in all 3 distributions CN 7 - no facial asymmetry CN 8 - R sided hearing loss to finger rub CN 9, 10, 12 - tongue and uvula midline CN 11- normal shoulder shrug Trudi spontaneously and to command 5/5 motor strength in bilateral deltoids, biceps, triceps, IO, IP Normal finger-nose testing No pronator drift Gait appears normal IMAGES: MRI IAC 07/16/23 with homogenously enhancing R IAC mass with extension into the CPA, which has showninterval growth since imaging in 2019 IMPRESSION: 82 year old male female with h/o progressive right sided SNHL, prompting MRI IAC that revealed the R IAC lesion with extension into the CPA c/w vestibular schwannoma. Hearing loss has been progressive over several years. Surveillance imaging has shown interval growth since 2020 with further extension towards the cerebellar peduncle. She denies imbalance or dizziness, other than a h/o episodes of BPPV. Patient Active Problem List Diagnosis Code HX [...] of right femur with routine healing S72.001D I spent a total of 40-54 minutes (exact time 45 mins) on the date of service in preparation, delivery, and documentation of the care provided to Dianne Aguayo excluding any time spent in the performance of separately billed services. PLAN: Reviewed MRI IAC with the patient and her daughter. We discussed the interval enlarged since 2019. We discussed options including observation versus treatment with radiotherapy versus operative treatment. Given size, interval growth, multiple comorbidities, recommended discussion with radiation oncology regarding radiosurgery. Referral has been placed. Patient seen by Dr. Boogie at today's encounter. Call with any questions or concerns. Ortiz Farley PA-C Department of Neurosurgery 08/12/2023 2:38 PM I have reviewed the advanced practitioner's documentation on the date of service referenced in note, and I agree with, and take responsibility for the plan of care. 82 yr old female with progressive right SNHL and progressively enlarging right vestibular schwannoma. I recommend SRS. Paras Boogie MD, MS Pituitary and Skull Base Neurosurgery Neurosurgical Oncology [facility] Neuroscience [place] documented in this encounter Plan of Treatment Upcoming Encounters Date Type Department Care Team (Latest Contact Info) Description 08/25/2023 11:00 AM EDT Immunization/Injec tion Hematology/Oncology Treatment, [place] [address] [place] [id number] Nurse, Med [address] [facility] [address] 09/08/2023 10:45 AM EDT Imaging Radiology [address] [place] [address] 09/09/2023 3:00 PM EDT Office Visit Radiation Oncology, [place] [address] [place] [address] Prakash Vyas MD [address], [place] [id number] 09/17/2023 10:45 AM EDT Office Visit Hematology/Oncology [facility] [address] [place] [phone] Kush Linton MD [address] [place] [address] 09/29/2023 1:00 PM EDT Office Visit Family Practice [facility] [address] [place] [address] Hank Ivey, [address] [place] [address] 09/30/2023 12:30 PM EDT Office Visit Gynecology/Oncology , [place] [address] [place] [address] Ama Ruano PA-C [address], [place] [id number] 10/21/2023 8:30 AM EDT Office Visit Cardiology, [facility] [address] [place] [address] Sarah Mohan CRNP [address] [facility] [place] [address] 10/27/2023 3:00 PM EDT Office Visit Nephrology, [facility] [address] [place] [address] Shirley Alicea PA-C [address] [place] [address] 11/09/2023 10:00 AM EDT Nurse Only Ancillary [facility] [address] [facility] [place] [address] Im, Nurse Annual Wellness [facility] [address] [facility] [place] [address] 11/20/2023 9:30 AM EDT Hospital Encounter ENDO [facility], Endoscopy Room [facility] [address] [place] [address] Rogelio Yeh MD [address] [place] [address] 11/20/2023 9:30 AM EDT - 11/20/2023 10:00 AM EDT Surgery ENDO [facility], Endoscopy Room [facility] [address] [place] [phone] Rogelio Yeh MD [address] [place] [address] COLONOSCOPY FLEXIBLE PROXIMAL DIAGNOSTIC 01/28/2024 11:00 AM EDT Office Visit Otolaryngology/Head & Neck/Facial Plastic Surgery [address] [place] [address] Tyrone Tenorio MD [address] [place] [address] 03/03/2024 11:00 AM EDT Office Visit Rheumatology [place] [id number] [employer] [place] [address] Avinash Rasmussen MD [facility] [employer] [place] [address] Scheduled Procedures Name Priority Associated Diagnoses Date/Ti me COLONOSCOPY FLEXIBLE PROXIMAL DIAGNOSTIC Recall History of colon polyps Tubular adenoma 11/20/2023 9:30 AM EDT Scheduled Referrals Name Type Priority Associated Diagnoses Orde r Schedule RADIATION/ONCOLOGY REFERRAL OP Referral Within 30 days (routine) Asymmetric SNHL (sensorineural hearing loss) Unilateral vestibular schwannoma (HCC) Ordered: 08/12/2023 Health Maintenance Due Date Last Done Comments COLONOSCOPY-EVERY 3 YRS AGES 18-100 04/23/2023 04/23/2020, 04/23/2020, 04/29/2016, Additional history exists Albumin/Creatinine Ratio 05/12/2023 023, 02/05/2021, 01/06/2020, Additional history exists CKD PHOS USE SMARTSET 76464 07/29/2023 07/28/2022, 06/24/2021, 05/10/2019, Additional history exists Depression Screening 11/01/2023 10/31/2022 GFR 11/09/2023 05/11/2023, 12/2022, 08/06/2022, Additional history exists CKD HGB USE SMARTSET 95394 01/10/202401/09, 01/09/2023, 08/06/2022, Additional history exists DTaP,Tdap,and [...] D LEVEL ONCE IN A LIFETIME-USE SMARTSET# [id number] Completed 05/11/2023, 07/28/2022, 06/24/2021, Additional history exists [...] this encounter Medical Devices Implanted Type Area Automatic Clipper And Stripper Device Identifier Shelf Expiration Date Model / Serial / Lot 7fr X 24cm Bard Inlay [place] Ureteral Stent Implanted:Qty : 1 on 04/04/2014 by Sawyer Parson MD at OR [facility] Left: Ureter INACTIVE [employer] 10/01/2018 [id number] / / [id number] Port Power Mri W/8fr Cath - [id number] Implanted:Qty : 1 on 05/23/2015 by Nay Hernandez MD at OR [facility] Right: Subclavian CR BARD : PERIPHERAL VASCULAR 08/29/2016 [id number] / / [id number] documented as of this encounter Visit Diagnoses Diagnosis Unilateral vestibular schwannoma (HCC)- Primary Asymmetric SNHL (sensorineural hearing loss) Sensorineural hearing loss, asymmetrical History of colon polyps Personal history of [...] and were consensually agreed upon. Care Teams Choir Accompanist Relationship Specialty Start Date End Date Hank Ivey DO [address] [place] [address] PCP - General Family Medicine 10/07/16 documented as of this encounter
--- OUTSIDE RECORDS SUMMARY | 2023-09-27 13:13 | External Medical Summary | Summary of Care ---
Author Name Unknown Organization [facility] Address [address] [place] [address] Phone [phone] Care Team Providers Care Director Bioinformatics Name Role Phone Loni Hank Cheyenne GUTIERREZ Primary Care Provider [phone] Reason for Visit * Reason Comments Procedure Port flush Encounter Details Date Type Department Care Team ([facility] Contact Info) Description 08/25/2023 11:00 AM EDT Immunization/I njection Hematology/Oncology Treatment, [place] [address] [place] [address] Nurse, Med [address] [place] [address] Personal history of malignant neoplasm of breast*; Encounter for adjustment and management of vascular access device Allergies Active Allergy Reactions Criticality Noted Date Comments [place]ena Oil 02/27/2021 Other reaction(s): ANAPHYLACTIC Ciprofloxacin Rash [...] as of this encounter (statuses as of 08/25/2023) Medications Medication Sig Dispensed Refills Start Date [...] as of this encounter (statuses as of 08/25/2023) Active Problems Problem Noted Date Diagnosed Date [...] as of this encounter (statuses as of 08/25/2023) Resolved Problems Problem Noted Date Diagnosed Date [...] as of this encounter (statuses as of 08/25/2023) Immunizations Name Administration Dates Next Due COVID-19 mRNA, LNP-s, No Pre serve, 2-Dose Series ([employer] Earth) 08/26/2021,03/29/2021,07/28/2020,07/02 COVID-19, MRNA-LNP, 23-24, P F, 30 MCG/0.3 mL, 12 YRS AND ABOVE, IM ([facility] 04/07/2023 Covid-19, Mrna, Lnp-s, Pf, B ivalent, 30 Mcg, IM, 12 yrs and above ([employer]) 02/14/2022 Pneumococcal Conjugate Vacc, 13 Valent (Prevnar) [...] as of this encounter Nursing Notes * Ute Gavin, RN - 08/25/2023 11:16 AM EDT Chair 6 Pt here for port flush. No complaints. R port accessed with #20G 3/4" Ramírez without difficulty. Port with positive blood return. Flushes easily. Port flushed with 20 ml NSS and Heparin 5 ml (100 units/ml). Ramírez needle removed intact. Pt adarsh well. Discharged in stable condition. documented in this encounter Plan of Treatment Upcoming Encounters Date Type Department Care Team (Latest Contact Info) Description 09/08/2023 10:45 AM EDT Imaging Radiology [address] 132 [place] [address] 09/09/2023 3:00 PM EDT Office Visit Radiation Oncology, [place] [address] [place] [address] Prakash Vyas MD [address] [place] [address] 09/17/2023 10:45 AM EDT Office Visit Hematology/Oncology [facility] [address] [place] [address] Kush Linton MD [address] [place] [address] 09/29/2023 1:00 PM EDT Office Visit Family Practice [facility] [place] [address] [place] [address] Hank Ivey, [address] [facility] [place] [address] 09/30/2023 12:30 PM EDT Office Visit Gynecology/Oncology , [place] [address] [place], [place] [address] Ama Ruano PA-C [address] [place], [place] [phone] 10/06/2023 1:00 PM EDT Immunization/Injec tion Hematology/Oncology Treatment, [place] [address] [place] [phone] Nurse, Med [address] [place] [address] 10/21/2023 8:30 AM EDT Office Visit Cardiology, [facility] [address] [place] [address] Sarah Mohan CRNP [address] [facility], [place] [address] 10/27/2023 3:00 PM EDT Office Visit Nephrology, [facility] [address] [place] [address] ZemaShirley newman PA-C [address] [place] [address] 11/09/2023 10:00 AM EDT Nurse Only Ancillary [facility] [place] [address] [place] [address] Im, Nurse Annual Wellness [facility] [address] [place] [address] 11/20/2023 9:30 AM EDT Hospital Encounter ENDO [facility], Endoscopy Room [facility] [address] [place] [phone] Rogelio Yeh MD [address] [place] [address] 11/20/2023 9:30 AM EDT - 11/20/2023 10:00 AM EDT Surgery ENDO [facility], Endoscopy Room [facility] [address] [place] [phone] Rogelio Yeh MD [address] [place] [address] COLONOSCOPY FLEXIBLE PROXIMAL DIAGNOSTIC 11/23/2023 9:20 AM EDT Office Visit [facility] 200 [facility] [place] [address] Esperanza Jeffery DO 200 [facility] [place] [address] 01/28/2024 11:00 AM EDT Office Visit Otolaryngology/Head & Neck/Facial Plastic Surgery [address] [place] [address] Tyrone Tenorio MD [address] [place] [address] 03/03/2024 11:00 AM EDT Office Visit Rheumatology [facility] [address] [facility] [place] [address] Avinash Rasmussen MD [facility] [employer] [place], [place] [address] Scheduled Procedures Name Priority Associated Diagnoses Date/Ti me COLONOSCOPY FLEXIBLE PROXIMAL DIAGNOSTIC Recall History of colon polyps Tubular adenoma 11/20/2023 9:30 AM EDT Health Maintenance Due Date Last Done Comments COLONOSCOPY-EVERY 3 YRS AGES 18-100 04/23/2023 04/23/2020, 04/23/2020, 04/29/2016, Additional history exists Albumin/Creatinine Ratio 05/12/2023 023, 02/05/2021, 01/06/2020, Additional history exists CKD PHOS USE SMARTSET 50362 07/29/2023 07/28/2022, 06/24/2021, 05/10/2019, Additional history exists Depression Screening 11/01/2023 10/31/2022 GFR 02/19/2024 08/20/2023, 12/2023, 01/09/2023, Additional history exists CKD HGB USE SMARTSET 96089 08/19/202408/19, 08/20/2023, 01/09/2023, Additional history exists DTaP,Tdap,and [...] D LEVEL ONCE IN A LIFETIME-USE SMARTSET# 99367 Completed 05/11/2023, 07/28/2022, 06/24/2021, Additional history exists [...] this encounter Medical Devices Implanted Type Area Workplace Relations Adviser Device Identifier Shelf Expiration Date Model / Serial / Lot 7fr X 24cm Bard Inlay [place] Ureteral Stent Implanted:Qty : 1 on 04/04/2014 by Sawyer Parson MD at OR [facility] Left: Ureter INACTIVE CR [employer]ARD INC 10/01/2018 [id number] / / [id number] Port Power Mri W/8fr Cath - [id number] Implanted:Qty : 1 on 05/23/2015 by Nay Hernandez MD at OR [facility] Right: Subclavian CR BARD : PERIPHERAL VASCULAR 08/29/2016 [id number] / / [id number] documented as of this encounter Visit Diagnoses Diagnosis Personal history of malignant neoplasm of breast- Primary Encounter for adjustment and management of vascular access device History of colon polyps Personal history of colonic polyps Tubular adenoma Benign neoplasm of unspecified site documented in this encounter Administered Medications Active Administered Medications - up to 3 most recent administrations Medication Order MAR Action Action Date Dose Rate Site hEParin 100 UNIT/ML Lock Flush inj 500 Units 500 Units (5 mL), IV Lock, PRN Other, IV Flush, Starting on Thu08/25/23 at 1109, Until Thu08/26/23 at 1108, For 24 hours, Do not flush if lock, PICC, or central line not in place; IV infusing or unable to flush. Given 08/25/2023 11:09 AM EDT 500 Units sodium chloride 0.9 % flush central line 10 mL 10 mL, IV Push, PRN Other, IV Flush, Starting on Thu08/25/23 at 1109, Until Thu08/26/23 at 1108, For 24 hours, Do not flush if lock, PICC, or central line not in place; IV infusing or unable to flush. Given 08/25/2023 11:09 AM EDT 10 mL documented in this encounter Advance Directives Latest [...] and were consensually agreed upon. Care Teams Director Bioinformatics Relationship Specialty Start Date End Date Hank Ivey DO 200 [place] [address] PCP - General Family Medicine 10/07/16 documented as of this encounter
--- OUTSIDE RECORDS SUMMARY | 2023-09-27 13:13 | External Medical Summary | Summary of Care ---
Author Name Unknown Organization [facility] Address [address] [place] [address] Phone [phone] Care Team Providers Care Home Health Attendant Name Role Phone BladeHank goodman DO Primary Care Provider [phone] Encounter Details Date Type Department Care Team ([facility] Contact Info) Description 08/18/2023 Abstract [facility] [address] [place], [place] [phone] Ortiz Farley PA-C [address] [place], [place] [phone] Allergies Active Allergy Reactions Criticality Noted Date Comments [place] Oil 02/27/2021 Other reaction(s): ANAPHYLACTIC Ciprofloxacin Rash [...] as of this encounter (statuses as of 08/18/2023) Medications Medication Sig Dispensed Refills Start Date [...] as of this encounter (statuses as of 08/18/2023) Active Problems Problem Noted Date Diagnosed Date [...] as of this encounter (statuses as of 08/18/2023) Resolved Problems Problem Noted Date Diagnosed Date [...] as of this encounter (statuses as of 08/18/2023) Immunizations Name Administration Dates Next Due COVID-19 mRNA, LNP-s, No Pre serve, 2-Dose Series ([employer]) 08/26/2021,03/29/2021,07/28/2020,07/02 COVID-19, MRNA-LNP, 23-24, P F, 30 MCG/0.3 mL, 12 YRS AND ABOVE, IM ([employer]) 04/07/2023 Covid-19, Mrna, Lnp-s, Pf, B ivalent, [...] this encounter Progress Notes * Ortiz Farley PA-C - 08/18/2023 9:21 AM EDT MULTIDISCIPLINARY CRANIAL BASE AND PITUITARY BOARD We discussed that case of Dianne Aguayo on 08/18/2023 in our tumor board with goals to evaluate the patient clinical presentation, review available brain/spine imaging, discuss differential diagnoses and management options as well as any potential barriers to care. Our team of providers routinely includes staff from the following disciplines: otolaryngology, neurosurgery, radiation oncology, neuroradiology, endocrinology, neuropathology, and there is usually a combination of physicians, clinical trainees, nurses, and advanced practitioners from our local and regional care centers for an open discussion of the cases presented. While all input is considered in patient decision-making, this tumor board meeting is designed to provide evidence based and best practice options for our patients and is not intended to represent all possible approaches or conclusions. We also offer these tumor board meetings for multidisciplinary discussion, education, and evaluation for potential clinical trials when appropriate. Based on the clinical exam findings, review of imaging and noted comorbid conditions, our multidisciplinary team arrived at the following approaches as the best practice next steps in care for Dianne Aguayo: 1. Consensus agreement that given age, comorbidities, and current symptomology, radiosurgery would be preferential for treatment as the lesion has shown interval growth since 2019 2. Patient to return as scheduled with Dr. Vyas on 09/09/23 The above is subject to change based on new clinical data or input from other expert advisors. Ortiz Farley PA-C 08/18/2023 9:21 AM documented in this encounter Plan of Treatment Upcoming Encounters Date Type Department Care Team (Latest Contact Info) Description 08/25/2023 11:00 AM EDT Immunization/Injec tion Hematology/Oncology Treatment, [place] [facility] [phone] Nurse, Med 4 200 [facility] [place] [address] 09/08/2023 10:45 AM EDT Imaging Radiology [address] 132 [place] [address] 09/09/2023 3:00 PM EDT Office Visit Radiation Oncology, [place] [address] [place] [address] Prakash Vyas MD [address] [place] [address] 09/17/2023 10:45 AM EDT Office Visit Hematology/Oncology [facility] [address] [place] [phone] Kush Linton MD 200 [facility] [place] [address] 09/29/2023 1:00 PM EDT Office Visit Family Practice [facility] 200 [facility] [place] [address] Hank Ivey, DO 200 [facility] [place] [address] 09/30/2023 12:30 PM EDT Office Visit Gynecology/Oncology , [place] [address] [place] [address] Ama Ruano PA-C [address] [place] [address] 10/21/2023 8:30 AM EDT Office Visit Cardiology, [facility] 132 [place] [address] Sarah Mohan CRNP 132 [place] [address] 10/27/2023 3:00 PM EDT Office Visit Nephrology, [facility] 200 [facility] [place] [address] Zemaitis, Shirley Bravo PA-C [address] [place] [address] 11/09/2023 10:00 AM EDT Nurse Only Ancillary [facility] [place] 200 [facility] [place] [address] Im, Nurse Annual Wellness [facility] 200 [facility] [place] [address] 11/20/2023 9:30 AM EDT Hospital Encounter ENDO [facility], Endoscopy Room [facility] [address] [place] [address] Rogelio Yeh MD [address] [place] [address] 11/20/2023 9:30 AM EDT - 11/20/2023 10:00 AM EDT Surgery [facility], Endoscopy Room [facility] [address] [place] [address] Rogelio Yeh MD [address] [place] [address] COLONOSCOPY FLEXIBLE PROXIMAL DIAGNOSTIC 01/28/2024 11:00 AM EDT Office Visit Otolaryngology/Head & Neck/Facial Plastic Surgery [address] [place] [address] Tyrone Tenorio MD [address] [place] [address] 03/03/2024 11:00 AM EDT Office Visit Rheumatology [place] [phone] [facility] [place] [address] Avinash Rasmussen MD [address] [place] [address] Scheduled Procedures Name Priority Associated Diagnoses Date/Ti me COLONOSCOPY FLEXIBLE PROXIMAL DIAGNOSTIC Recall History of colon polyps Tubular adenoma 11/20/2023 9:30 AM EDT Health Maintenance Due Date Last Done Comments COLONOSCOPY-EVERY 3 YRS AGES 18-100 04/23/2023 04/23/2020, 04/23/2020, 04/29/2016, Additional history exists Albumin/Creatinine Ratio 05/12/2023 023, 02/05/2021, 01/06/2020, Additional history exists CKD PHOS USE SMARTSET 52092 07/29/2023 07/28/2022, 06/24/2021, 05/10/2019, Additional history exists Depression Screening 11/01/2023 10/31/2022 GFR 11/09/2023 05/11/2023, 12/2022, 08/06/2022, Additional history exists CKD HGB USE SMARTSET 95105 01/10/202401/09, 01/09/2023, 08/06/2022, Additional history exists DTaP,Tdap,and [...] D LEVEL ONCE IN A LIFETIME-USE SMARTSET# 55705 Completed 05/11/2023, 07/28/2022, 06/24/2021, Additional history exists [...] this encounter Medical Devices Implanted Type Area Parts Cataloger Device Identifier Shelf Expiration Date Model / Serial / Lot 7fr X 24cm Bard Inlay [employer] [place] Ureteral Stent Implanted:Qty : 1 on 04/04/2014 by Sawyer Parson MD at OR [facility] Left: Ureter INACTIVE CR [employer] INC 10/01/2018 [id number] / / [id number] Port Power Mri W/8fr Cath - [id number] Implanted:Qty : 1 on 05/23/2015 by Nay Hernandez MD at OR [facility] Right: Subclavian CR BARD : PERIPHERAL VASCULAR 08/29/2016 [id number] / / [id number] documented as of this encounter Advance Directives [...] and were consensually agreed upon. Care Teams Home Health Attendant Relationship Specialty Start Date End Date Hank Ivey DO 200 [facility] [place] [address] PCP - General Family Medicine 10/07/16 documented as of this encounter
--- OUTSIDE RECORDS SUMMARY | 2023-09-27 13:13 | External Medical Summary ---
Author Name Unknown Address Unknown Organization K09:[facility] [place] [address] Laboratory Report Ordering Provider Test Date Status LORENZO VARELA 08/20/2023 12:34:54 Final Observation Date Value Abnormality Reference (Units ) Status WBC, Total 08/20/2023 12:34:54 12.80 Above high normal 4 .00-10.80 (K/uL) Final RBC 08/20/2023 12:34:54 4.38 3.85-5.15 (M/uL) Final Hemoglobin 08/20/2023 12:34:54 13.1 12.0-15.3 (g/dL) Final HCT 08/20/2023 12:34:54 40.1 36.0-45.2 (%) Final MCV 08/20/2023 12:34:54 91.6 81.5-97.5 (fL) Final MCH 08/20/2023 12:34:54 29.9 27.0-34.0 (pg) Final MCHC 08/20/2023 12:34:54 32.7 32.0-36.0 (g/dL) Final RDW 08/20/2023 12:34:54 14.7 11.5-15.5 (%) Final Platelets 08/20/2023 12:34:54 273 140-400 (K /uL) Final MPV 08/20/2023 12:34:54 10.0 6.6-11.1 ( fL) Final Performing Location [facility] [place] [address]
--- OUTSIDE RECORDS SUMMARY | 2023-09-27 13:13 | External Medical Summary ---
Author Name Unknown Address Unknown Organization K09:[facility] [place] [address] Laboratory Report Ordering Provider Test Date Status LORENZO VARELA 08/20/2023 12:34:54 Final Observation Date Value Abnormality Reference (Units ) Status SYNC LEUKOCYTES IN BLOOD BY AUTOMATED COUNT 08/20/2023 12:34:54 12.80 Above high normal 4.00-10.80 (K/uL) Final Segs 08/20/2023 12:34:54 61.1 40.0-75.0 (%) Final Lymphs % 08/20/2023 12:34:54 24.8 18.0-42.0 (%) Final Monos 08/20/2023 12:34:54 10.6 1.0-11.0 (%) Final Eosinophils 08/20/2023 12:34:54 3.3 0.0-6.0 (%) Final Basos 08/20/2023 12:34:54 0.2 0.0-2.0 (%) Final Absolute Segs 08/20/2023 12:34:54 7.81 Above high normal 1.80-7.70 (K/uL) Final Lymphs, absolute 08/20/2023 12:34:54 3.18 1.00-4.80 (K/ul) Final Monos, Abs 08/20/2023 12:34:54 1.36 Above high normal 0.00-1.10 (K/uL) Final Eos, Abs 08/20/2023 12:34:54 0.42 0.00-0.70 (K/uL) Final Basos, Abs 08/20/2023 12:34:54 0.03 0.00-0.20 (K/uL) Final Performing Location [facility] [place] [address]
--- OUTSIDE RECORDS SUMMARY | 2023-09-27 13:13 | External Medical Summary | Summary of Care ---
Author Name Unknown Organization [facility] Address [address] [place] [address] Phone [phone] Care Team Providers Care Sales Merchandise Associate Name Role Phone Josy Ivey DO Primary Care Provider [phone] Reason for Visit * Reason Onset Date Comments Medication Refill 08/31/2023 Encounter Details Date Type Department Care Team ([facility] Contact Info) Description 08/31/2023 Telephone Family Practice [facility] [address] [place] [address] Josy Ivey DO 200 [place] [address] Medication Refill Allergies Active Allergy Reactions Criticality Noted Date Comments [place] Oil 02/27/2021 Other reaction(s): ANAPHYLACTIC Ciprofloxacin Rash [...] for Nausea. 30 Tablet 2 09/01/2023 Active Prochlorperazine Maleate 10 MG Oral Tablet [...] mRNA, LNP-s, No Pre serve, 2-Dose Series (travayl) 08/26/2021,03/29/2021,07/28/2020,07/02 COVID-19, MRNA-LNP, 23-24, P F, 30 MCG/0.3 mL, 12 YRS AND ABOVE, IM ([employer]Comir[employer]) 04/07/2023 Covid-19, Mrna, Lnp-s, Pf, B ivalent, 30 Mcg, IM, 12 yrs and above (travayl) 02/14/2022 Pneumococcal Conjugate Vacc, 13 Valent (Prevnar) [...] as of this encounter Miscellaneous Notes * Addendum Note - Josy Ivey DO - 09/01/2023 1:02 PM EDTAddended by: JOSY IVEY on: 09/01/2023 01:02 PM Modules accepted: Orders * Telephone Encounter - Josy Ivey DO - 09/01/2023 1:02 PM EDT Compazine sent * Telephone Encounter - Krystal Mohan LPN - 09/01/2023 11:19 AM EDT Please advise if okay for compazine * Telephone Encounter - Radha Mckenna, family nurse practitioner - 08/31/2023 4:38 PM EDT RE Ondansetron 4 MG Oral Tablet Disintegrating (Zofran This is not working. Please send rx for the compazine Please advise Thank you for your assistance Radha Mckenna Seed Cleaner Operator II [facility] ([facility] (Formerly Telepharmacy) 08/31/2023,4:39 PM documented in this encounter Plan of Treatment Upcoming Encounters Date Type Department Care Team (Latest Contact Info) Description 09/08/2023 10:45 AM EDT Imaging Radiology [address], [place] 132 [place] [address] 09/09/2023 3:00 PM EDT Office Visit Radiation Oncology, [place] [address] [place] [address] Prakash Vyas MD [facility] [place] [address] 09/17/2023 10:45 AM EDT Office Visit Hematology/Oncology [address] [place] [phone] Kush Linton MD [address] [place] [address] [place] [address] 09/29/2023 1:00 PM EDT Office Visit Family Practice [facility] 200 [facility] [place] [address] Josy Ivey, 200 [facility] [place] [address] 09/30/2023 12:30 PM EDT Office Visit Gynecology/Oncology , [place] [address] [place] [address] Ama Ruano PA-C [address] [place] [address] 10/06/2023 1:00 PM EDT Immunization/Injec tion Hematology/Oncology Treatment, [place] 200 [facility] [place] [phone] Nurse, Med 4 200 [facility] [place] [address] 10/21/2023 8:30 AM EDT Office Visit Cardiology, [facility] [address] [place] [address] MarquesSarah mendes CRNP [address] [place] [address] 10/27/2023 3:00 PM EDT Office Visit Nephrology, [facility] 200 [facility] [place] [address] ZeShirley suazo PA-C 200 [facility] [place] [address] 11/09/2023 10:00 AM EDT Nurse Only Ancillary [facility] [place] [address] [place] [address] Im, Nurse Annual Wellness [facility] 200 [facility] [place] [address] 11/20/2023 9:30 AM EDT Hospital Encounter ENDO [facility], Endoscopy Room [facility] [address] [place] [phone] Rogelio Yeh MD [address] [place] [address] 11/20/2023 9:30 AM EDT - 11/20/2023 10:00 AM EDT Surgery ENDO [facility], Endoscopy Room [facility] [address] [place] [phone] Rogelio Yeh MD [address] [place] [address] COLONOSCOPY FLEXIBLE PROXIMAL DIAGNOSTIC 11/23/2023 9:20 AM EDT Office Visit Family Practice [facility] [place] [address] [place] [address] Esperanza Jeffery, DO [address] [place] [address] 01/28/2024 11:00 AM EDT Office Visit Otolaryngology/Head & Neck/Facial Plastic Surgery [address] [place] [address] Tyrone Tenorio MD [address] [place] [address] 03/03/2024 11:00 AM EDT Office Visit Rheumatology [facility] [email or web address] [place], [place] [address] Avinash Rasmussen MD [address] [place], [place] [address] Scheduled Procedures Name Priority Associated Diagnoses Date/Ti me COLONOSCOPY FLEXIBLE PROXIMAL DIAGNOSTIC Recall History of colon polyps Tubular adenoma 11/20/2023 9:30 AM EDT Health Maintenance Due Date Last Done Comments Colonoscopy 04/23/2023 04/23/2020, 04/04, 04/29/2016, Additional history exists Albumin/Creatinine Ratio 05/12/2023 023, 02/05/2021, 01/06/2020, Additional history exists CKD PHOS USE SMARTSET 93247 07/29/2023 07/28/2022, 06/24/2021, 05/10/2019, Additional history exists Depression Screening 11/01/2023 10/31/2022 GFR 02/19/2024 08/20/2023, 12/2023, 01/09/2023, Additional history exists CKD HGB USE SMARTSET 37255 08/19/202408/19, 08/20/2023, 01/09/2023, Additional history exists DTaP,Tdap,and [...] D LEVEL ONCE IN A LIFETIME-USE SMARTSET# 06258 Completed 05/11/2023, 07/28/2022, 06/24/2021, Additional history exists [...] this encounter Medical Devices Implanted Type Area Handkerchief Folder Device Identifier Shelf Expiration Date Model / Serial / Lot 7fr X 24cm Bard Inlay [place] Ureteral Stent Implanted:Qty : 1 on 04/04/2014 by Sawyer Parson MD at OR [facility] Left: Ureter INACTIVE CR [employer] INC 10/01/2018 [id number] / / [id number] Port Power Mri W/8fr Cath - [id number] Implanted:Qty : 1 on 05/23/2015 by Nay Hernandez MD at OR [facility] Right: Subclavian CR BARD : PERIPHERAL VASCULAR 08/29/2016 [id number] / / [id number] documented as of this encounter Visit Diagnoses Diagnosis EGFR-related lung cancer (HCC) History of colon [...] and were consensually agreed upon. Care Teams Sales Merchandise Associate Relationship Specialty Start Date End Date Josy Ivey DO 200 [facility] [place] [address] PCP - General Family Medicine 10/07/16 documented as of this encounter
--- OUTSIDE RECORDS SUMMARY | 2023-09-27 13:14 | External Medical Summary | Summary of Care ---
Author Name Unknown Organization [facility] Address [address] [place] [address] Phone [phone] Care Team Providers Care Waterway Traffic Checker Name Role Phone JessicaHank salas Cheyenne GUTIERREZ Primary Care Provider [phone] Reason for Visit * Reason Comments Procedure Port flush. Encounter Details Date Type Department Care Team ([facility] Contact Info) Description 07/14/2023 10:30 AM EDT Immunization/I njection Hematology/Oncology Treatment, [place] [address] [place] [address] Nurse, Med 4 [address] [place] [address] Personal history of malignant neoplasm of breast*; Encounter for central line care Allergies Active Allergy Reactions Criticality Noted Date Comments [place] Oil 02/27/2021 Other reaction(s): ANAPHYLACTIC Ciprofloxacin Rash [...] as of this encounter (statuses as of 07/14/2023) Medications Medication Sig Dispensed Refills Start Date [...] Muscle spasms. 270 Capsule 3 12/05/2022 Active Atorvastatin Calcium 20 MG Oral Tablet (Lipitor) Take 1 Tablet by mouth in the morning. 90 Tablet 1 12/05/2022 Active amLODIPine Besylate 10 MG Oral [...] the morning. 30 Tablet 5 06/23/2023 Active Hospital, Clinic, or Other Facility Administered Medication Ordered Dose Route Frequency Start Date End Date Status albuterol (PROVENTIL HFA) inhaler 4 PuffIndications:SOB (shortness of breath) 4 Puff IN Q4H PRN 01/23/2017 Act jacinta documented as of this encounter (statuses as of 07/14/2023) Active Problems Problem Noted Date Diagnosed Date [...] as of this encounter (statuses as of 07/14/2023) Resolved Problems Problem Noted Date Diagnosed Date [...] as of this encounter (statuses as of 07/14/2023) Immunizations Name Administration Dates Next Due COVID-19 mRNA, LNP-s, No Pre serve, 2-Dose Series ([employer]) 08/26/2021,03/29/2021,07/28/2020,07/02 COVID-19, MRNA-LNP, 23-24, P F, 30 MCG/0.3 mL, 12 YRS AND ABOVE, IM ([facility] 04/07/2023 Covid-19, Mrna, Lnp-s, Pf, [...] Nursing Notes * Yokasta Alfaro RN - 07/14/2023 10:50 AM EDT Chair 10. VAD (Venous Access Device) accessed with #20G 3/4" without difficulty. VAD flushed with 10 ml NSS and Heparin 5 ml (100 units/ml). Ramírez needle removed intact. Patient tolerated procedure well. Discharged in stable condition. documented in this encounter Plan of Treatment Upcoming Encounters Date Type Department Care Team (Latest Contact Info) Description 07/16/2023 11:30 AM EDT Imaging Radiology [address] [place] [address] 07/30/2023 11:00 AM EDT Office Visit Otolaryngology/Head & Neck/Facial Plastic Surgery [address] [place] [address] Tyrone Tenorio MD [address] [place] [address] 08/25/2023 11:00 AM EDT Immunization/Injec tion Hematology/Oncology Treatment, [place] [address] [place] [phone] Nurse, Med [address] [place] [address] 09/08/2023 10:45 AM EDT Imaging Radiology [address], [place] [address] [place] [address] 09/17/2023 10:45 AM EDT Office Visit Hematology/Oncology [facility] [place] [address] [place] [phone] Kush Linton MD [address] [place] [address] 09/29/2023 1:00 PM EDT Office Visit Family Practice [facility] [place] [address] [place] [address] Hank Ivey, [address] [place] [address] 09/30/2023 12:30 PM EDT Office Visit Gynecology/Oncology , [place] [address] [place], [place] [phone] Ama Ruano PA-C [address] [place] [address] 10/14/2023 11:00 AM EDT Office Visit Cardiology, [facility] [address] Sarah Mohan CRNP [facility] [address] 10/27/2023 3:00 PM EDT Office Visit Nephrology, [facility] [address] [place] [address] Shirley Alicea PA-C [address] [place] [address] 11/09/2023 10:00 AM EDT Nurse Only Ancillary [facility] [place] [address] [place] [address] Im, Nurse Annual Wellness [facility] [address] [place] [address] 11/20/2023 9:30 AM EDT Hospital Encounter [facility]O [facility] [place] [phone] Rogelio Yeh MD [address] [place] [address] 11/20/2023 9:30 AM EDT - 11/20/2023 10:00 AM EDT Surgery ENDO [facility], Endoscopy Room [facility] [address] [place] [phone] Rogelio Yeh MD [address] [place] [address] COLONOSCOPY FLEXIBLE PROXIMAL DIAGNOSTIC 03/03/2024 11:00 AM EDT Office Visit Rheumatology [place] [address] [facility] [employer] [place] [address] Avinash Rasmussen MD [address] [place] [address] Scheduled Procedures Name Priority Associated Diagnoses Date/Ti me COLONOSCOPY FLEXIBLE PROXIMAL DIAGNOSTIC Recall History of colon polyps Tubular adenoma 11/20/2023 9:30 AM EDT Health Maintenance Due Date Last Done Comments COLONOSCOPY-EVERY 3 YRS AGES 18-100 04/23/2023 04/23/2020, 04/23/2020, 04/29/2016, Additional history exists Albumin/Creatinine Ratio 05/12/2023 023, 02/05/2021, 01/06/2020, Additional history exists CKD PHOS USE SMARTSET 04662 07/29/2023 07/28/2022, 06/24/2021, 05/10/2019, Additional history exists Depression Screening 11/01/2023 10/31/2022 GFR 11/09/2023 05/11/2023, 09/0 12/2022, 08/06/2022, Additional history exists CKD HGB USE SMARTSET 85487 01/10/202401/09, 01/09/2023, 08/06/2022, Additional history exists DTaP,Tdap,and [...] D LEVEL ONCE IN A LIFETIME-USE SMARTSET# 99063 Completed 05/11/2023, 07/28/2022, 06/24/2021, Additional history exists [...] this encounter Medical Devices Implanted Type Area General Labor Device Identifier Shelf Expiration Date Model / Serial / Lot 7fr X 24cm Bard Inlay [place] Ureteral Stent Implanted:Qty : 1 on 04/04/2014 by Sawyer Parson MD at OR [facility] Left: Ureter INACTIVE CR [employer] 10/01/2018 [id number] / / [id number] Port Power Mri W/8fr Cath - [id number] Implanted:Qty : 1 on 05/23/2015 by Nay Hernandez MD at OR [facility] Right: Subclavian CR BARD : PERIPHERAL VASCULAR 08/29/2016 [id number] / / [id number] documented as of this encounter Visit Diagnoses Diagnosis Personal history of malignant neoplasm of breast- Primary Encounter for central line care Fitting and adjustment of vascular catheter History of colon polyps Personal history of colonic polyps Tubular adenoma Benign neoplasm of unspecified site documented in this encounter Administered Medications Active Administered Medications - up to 3 most recent administrations Medication Order MAR Action Action Date Dose Rate Site hEParin 100 UNIT/ML Lock Flush inj 500 Units 500 Units (5 mL), IV Lock, PRN Other, IV Flush, Starting on Thu07/14/23 at 1042, Until Thu07/15/23 at 1041, For 24 hours, Do not flush if lock, PICC, or central line not in place; IV infusing or unable to flush. Given 07/14/2023 10:42 AM EDT 500 Units sodium chloride 0.9 % flush central line 10 mL 10 mL, IV Push, PRN Other, IV Flush, Starting on Thu07/14/23 at 1042, Until Thu07/15/23 at 1041, For 24 hours, Do not flush if lock, PICC, or central line not in place; IV infusing or unable to flush. Given 07/14/2023 10:42 AM EDT 10 mL documented in this [...] and were consensually agreed upon. Care Teams Waterway Traffic Checker Relationship Specialty Start Date End Date Hank Ivey DO [address] [facility] [place], [place] [address] PCP - General Family Medicine 10/07/16 documented as of this encounter
--- OUTSIDE RECORDS SUMMARY | 2023-09-27 13:14 | External Medical Summary | Summary of Care ---
Author Name Unknown Organization [facility] Address [address] [place] [address] Phone [phone] Care Team Providers Care Night Shift Manager Name Role Phone LoniHank Cheyenne GUTIERREZ Primary Care Provider [phone] Reason for Visit * Reason Onset Date Comments Test Results 06/29/2023 Encounter Details Date Type Department Care Team ([facility] Contact Info) Description 06/29/2023 Telephone Cardiology, [facility] [address] [facility] [place] [address] Toy Omer DO [address] [place] [address] Test Results Allergies Active Allergy Reactions Criticality Noted Date Comments [place] Oil 02/27/2021 Other reaction(s): ANAPHYLACTIC Ciprofloxacin Rash [...] as of this encounter (statuses as of 06/29/2023) Medications Medication Sig Dispensed Refills Start Date [...] as of this encounter (statuses as of 06/29/2023) Active Problems Problem Noted Date Diagnosed Date [...] as of this encounter (statuses as of 06/29/2023) Resolved Problems Problem Noted Date Diagnosed Date [...] as of this encounter (statuses as of 06/29/2023) Immunizations Name Administration Dates Next Due COVID-19 mRNA, LNP-s, No Pre serve, 2-Dose Series ([employer]) 08/26/2021,03/29/2021,07/28/2020,07/02 COVID-19, MRNA-LNP, 23-24, P F, 30 MCG/0.3 mL, 12 YRS AND ABOVE, IM ([employer]) 04/07/2023 Covid-19, Mrna, Lnp-s, Pf, B ivalent, [...] encounter Miscellaneous Notes * Telephone Encounter - Toy Omer DO - 06/29/2023 6:04 PM EST I called patient discussed results of her recent combined low intensity exercise plus pharmacologicnuclear stress test. The perfusion images did not suggest ischemia. The patient however had a hypertensive blood pressure response and did develop a brief run of supraventricular tachycardia after the administration of Lexiscan with heart rates in the 170s. Blood pressure and heart rate returned to baseline in the post stress recovery interval. The patient is already on metoprolol succinate 50 milligrams daily. Otherwise for her blood pressure she was on lisinopril 40 milligrams daily, amlodipine 10 milligrams daily and HCTZ 12.5 milligrams daily. BP Readings from Last 4 Encounters: 06/23/23 142/68 06/20/23 146/80 06/19/23 144/74 06/02/23 145/72 Recent systolic blood pressures mostly in the 140s. At present, recommend ongoing observation on her current medications. I am not going to titrate up her metoprolol present as her baseline heart rate is in the 60s. She was to keep her upcoming cardiology follow-up in October. Toy Omer DO documented in this encounter Plan of Treatment Upcoming Encounters Date Type Department Care Team (Latest Contact Info) Description 07/14/2023 10:30 AM EDT Immunization/Injec tion Hematology/Oncology Treatment, [place] [address] [place] [phone] Nurse, Med 200 [facility] [place] [address] 07/16/2023 11:30 AM EDT Imaging Radiology [address] 132 [place] [address] 07/30/2023 11:00 AM EDT Office Visit Otolaryngology/Head & Neck/Facial Plastic Surgery [address] [place] [address] Tyrone Tenorio MD [address] [place] [address] 09/08/2023 10:45 AM EDT Imaging Radiology [address] 132 [place] [address] 09/17/2023 10:45 AM EDT Office Visit Hematology/Oncology [facility] [address] [place] [address] Kush Linton MD [address] [place] [address] 09/29/2023 1:00 PM EDT Office Visit Family Practice [facility] [address] [place] [address] Hank Ivey, DO 200 [place] [address] 09/30/2023 12:30 PM EDT Office Visit Gynecology/Oncology , [place] [address] [place] [address] Aam Ruano PA-C [address] [place] [address] 10/14/2023 11:00 AM EDT Office Visit Cardiology, [facility] 132 [facility] [place] [address] Sarah Mohan CRNP 132 [facility] [place] [address] 10/27/2023 3:00 PM EDT Office Visit Nephrology, [facility] 200 [facility] [place], [place] [address] Zemaitis, Shirley Bravo PA-C 200 [facility] [place] [address] 11/09/2023 10:00 AM EDT Nurse Only [facility] [address] [facility] [place] [address] Im, Nurse Annual Wellness [facility] [address] [facility] [place] [address] 11/20/2023 9:30 AM EDT Hospital Encounter ENDO [facility], Endoscopy Room [facility] [address] [place] [address] Rogelio Yeh MD [address] [place] [address] 11/20/2023 9:30 AM EDT - 11/20/2023 10:00 AM EDT Surgery ENDO [facility], Endoscopy Room [facility] [address] [place] [phone] Rogelio Yeh MD [address] [place] [address] COLONOSCOPY FLEXIBLE PROXIMAL DIAGNOSTIC 03/03/2024 11:00 AM EDT Office Visit Rheumatology [place] [address] [facility] [place], [place] [address] Avinash Rasmussen MD [facility] [employer] [place], [place] [address] Scheduled Procedures Name Priority Associated Diagnoses Date/Ti me COLONOSCOPY FLEXIBLE PROXIMAL DIAGNOSTIC Recall History of colon polyps Tubular adenoma 11/20/2023 9:30 AM EDT Health Maintenance Due Date Last Done Comments COLONOSCOPY-EVERY 3 YRS AGES 18-100 04/23/2023 04/23/2020, 04/23/2020, 04/29/2016, Additional history exists Albumin/Creatinine Ratio 05/12/2023 023, 02/05/2021, 01/06/2020, Additional history exists CKD PHOS USE SMARTSET 41195 07/29/2023 07/28/2022, 06/24/2021, 05/10/2019, Additional history exists Depression Screening 11/01/2023 10/31/2022 GFR 11/09/2023 05/11/2023, 090 12/2022, 08/06/2022, Additional history exists CKD HGB USE SMARTSET 62040 01/10/202401/09, 01/09/2023, 08/06/2022, Additional history exists DTaP,Tdap,and [...] D LEVEL ONCE IN A LIFETIME-USE SMARTSET# 14037 Completed 05/11/2023, 07/28/2022, 06/24/2021, Additional history exists [...] this encounter Medical Devices Implanted Type Area Bilingual Teacher Assistant Device Identifier Shelf Expiration Date Model / Serial / Lot 7fr X 24cm Bard Inlay [place] Ureteral Stent Implanted:Qty : 1 on 04/04/2014 by Sawyer Parson MD at OR [facility] Left: Ureter INACTIVE [employer] 10/01/2018 [id number] / / [id number] Port Power Mri W/8fr Cath - [id number] Implanted:Qty : 1 on 05/23/2015 by Nay Hernandez MD at OR [facility] Right: Subclavian CR BARD : PERIPHERAL VASCULAR 08/29/2016 [id number] / / [id number] documented as of this encounter Advance Directives [...] and were consensually agreed upon. Care Teams Night Shift Manager Relationship Specialty Start Date End Date Hank Ivey DO 200 [place] [address] PCP - General Family Medicine 10/07/16 documented as of this encounter
--- OUTSIDE RECORDS SUMMARY | 2023-09-27 13:14 | External Medical Summary | Summary of Care ---
Author Name Unknown Organization [facility] Address [address] [place] [address] Phone [phone] Care Team Providers Care Grader Operator Name Role Phone BladeHank goodman Cheyenne GUTIERREZ Primary Care Provider [phone] Reason for Visit * Reason Onset Date Comments Appointment 07/15/2023 Encounter Details Date Type Department Care Team ([facility] Contact Info) Description 07/15/[address] [place] [address] Molly Mcdaniel TECH Appointment Allergies Active Allergy Reactions Criticality Noted Date Comments [place] Oil 02/27/2021 Other reaction(s): ANAPHYLACTIC Ciprofloxacin Rash [...] as of this encounter (statuses as of 07/15/2023) Medications Medication Sig Dispensed Refills Start Date [...] as of this encounter (statuses as of 07/15/2023) Active Problems Problem Noted Date Diagnosed Date [...] as of this encounter (statuses as of 07/15/2023) Resolved Problems Problem Noted Date Diagnosed Date [...] as of this encounter (statuses as of 07/15/2023) Immunizations Name Administration Dates Next Due COVID-19 mRNA, LNP-s, No Pre serve, 2-Dose Series ([employer]) 08/26/2021,03/29/2021,07/28/2020,07/02 COVID-19, MRNA-LNP, 23-24, P F, 30 MCG/0.3 mL, 12 YRS AND ABOVE, IM ([facility]) 04/07/2023 Covid-19, Mrna, Lnp-s, Pf, B ivalent, 30 Mcg, IM, 12 yrs and above ([employer]) 02/14/2022 Pneumococcal Conjugate Vacc, 13 Valent (Prevnar) [...] encounter Miscellaneous Notes * Telephone Encounter - Molly Mcdaniel TECH - 07/15/2023 4:12 PM EDT Name: Dianne Aguayo Do you have any of the following: Pacemaker, stents, heart valves, aneurysm clips? No Have you ever worked with metal or have you ever gotten metal in your eyes? No Have you had a colonoscopy in the last 30 days? No On dialysis? No Do you have any dermals or body piercing's? No or ? Do you wear an insulin pump or diabetic monitor? No No new tattoos WILLIAM Antonio documented in this encounter Plan of Treatment Upcoming Encounters Date Type Department Care Team (Latest Contact Info) Description 07/16/2023 11:30 AM EDT Imaging Radiology [address] 132 [facility] [place] [address] 07/30/2023 11:00 AM EDT Office Visit Otolaryngology/Head & Neck/Facial Plastic Surgery [address] [place] [address] Tyrone Tenorio MD [address] [place] [address] 08/25/2023 11:00 AM EDT Immunization/Injec tion Hematology/Oncology Treatment, [place] [address] [place] [phone] Nurse, Med [address] [place] [address] 09/08/2023 10:45 AM EDT Imaging Radiology [address] 132 [facility] [place] [address] 09/17/2023 10:45 AM EDT Office Visit Hematology/Oncology [facility] [place] [address] [place] [address] Kush Linton MD [address] [place] [address] 09/29/2023 1:00 PM EDT Office Visit Family Practice [facility] [place] [address] [place] [address] Hank Ivey, [address] [place] [address] 09/30/2023 12:30 PM EDT Office Visit Gynecology/Oncology , [place] [address] [place] [address] Ama Ruano PA-C [address] [place] [address] 10/14/2023 11:00 AM EDT Office Visit Cardiology, [facility] [address] [place] [address] Sarah Mohan CRNP 132 [facility] [place] [address] 10/27/2023 3:00 PM EDT [facility] [place] [address] [place] [address] ZeShirley suazo PA-C 200 [facility] [place] [address] 11/09/2023 10:00 AM EDT Nurse Only Ancillary [facility] [place] [address] [place] [address] Im, Nurse Annual Wellness [facility] [address] [place] [address] 11/20/2023 9:30 AM EDT Hospital Encounter [facility]O [facility], Endoscopy Room [facility] [address] [place] [address] Rogelio Yeh MD [address] [place] [address] 11/20/2023 9:30 AM EDT - 11/20/2023 10:00 AM EDT Surgery ENDO [facility], Endoscopy Room [facility] [address] [place] [address] Rogelio Yeh MD [address] [place] [address] COLONOSCOPY FLEXIBLE PROXIMAL DIAGNOSTIC 03/03/2024 11:00 AM EDT Office Visit Rheumatology [place] [address] [employer] [place], [place] [address] Avinash Rasmussen MD [facility] [employer] [place] [address] Scheduled Procedures Name Priority Associated Diagnoses Date/Ti me COLONOSCOPY FLEXIBLE PROXIMAL DIAGNOSTIC Recall History of colon polyps Tubular adenoma 11/20/2023 9:30 AM EDT Health Maintenance Due Date Last Done Comments COLONOSCOPY-EVERY 3 YRS AGES 18-100 04/23/2023 04/23/2020, 04/23/2020, 04/29/2016, Additional history exists Albumin/Creatinine Ratio 05/12/2023 023, 02/05/2021, 01/06/2020, Additional history exists CKD PHOS USE SMARTSET 04161 07/29/2023 07/28/2022, 06/24/2021, 05/10/2019, Additional history exists Depression Screening 11/01/2023 10/31/2022 GFR 11/09/2023 05/11/2023, 09/0 12/2022, 08/06/2022, Additional history exists CKD HGB USE SMARTSET 30665 01/10/202401/09, 01/09/2023, 08/06/2022, Additional history exists DTaP,Tdap,and [...] D LEVEL ONCE IN A LIFETIME-USE SMARTSET# 37083 Completed 05/11/2023, 07/28/2022, 06/24/2021, Additional history exists [...] this encounter Medical Devices Implanted Type Area Fiber Glass Worker Device Identifier Shelf Expiration Date Model / Serial / Lot 7fr X 24cm Bard Inlay [place] Ureteral Stent Implanted:Qty : 1 on 04/04/2014 by Sawyer Parson MD at OR [facility] Left: Ureter INACTIVE CR [employer] 10/01/2018 [id number] / / [id number] Port Power Mri W/8fr Cath - [id number] Implanted:Qty : 1 on 05/23/2015 by Nay Hernandez MD at OR [facility] Right: Subclavian CR BARD : PERIPHERAL VASCULAR 08/29/2016 [id number] / / [id number] documented as of this encounter Advance Directives [...] and were consensually agreed upon. Care Teams Grader Operator Relationship Specialty Start Date End Date Hank Ivey DO [address] [facility] [place] [address] PCP - General Family Medicine 10/07/16 documented as of this encounter
--- OUTSIDE RECORDS SUMMARY | 2023-09-27 13:14 | External Medical Summary | Summary of Care ---
Author Name Unknown Organization [facility] Address [address] [place] [address] Phone [phone] Care Team Providers Care Paint Maker Name Role Phone BladeHank goodman Primary Care Provider [phone] Reason for Visit * Reason Onset Date Comments Precert Denied 06/23/2023 Gabapentin Encounter Details Date Type Department Care Team ([facility] Contact Info) Description 06/23/2023 Telephone Neurology [facility] [address], [place] [id number] Rosana Nolan PA-C [address] [place] [address] Precert Denied (Gabapentin) Allergies Active Allergy Reactions Criticality Noted Date Comments [place] Oil 02/27/2021 Other reaction(s): ANAPHYLACTIC Ciprofloxacin Rash [...] as of this encounter (statuses as of 07/03/2023) Medications Medication Sig Dispensed Refills Start Date [...] as of this encounter (statuses as of 07/03/2023) Active Problems Problem Noted Date Diagnosed Date [...] as of this encounter (statuses as of 07/03/2023) Resolved Problems Problem Noted Date Diagnosed Date [...] as of this encounter (statuses as of 07/03/2023) Immunizations Name Administration Dates Next Due COVID-19 mRNA, LNP-s, No Pre serve, 2-Dose Series (I & Combine) 08/26/2021,03/29/2021,07/28/2020,07/02 COVID-19, MRNA-LNP, 23-24, P F, 30 MCG/0.3 mL, 12 YRS AND ABOVE, IM ([employer]-ComirnatVivacta) 04/07/2023 Covid-19, Mrna, Lnp-s, Pf, B ivalent, [...] encounter Miscellaneous Notes * Telephone Encounter - Neeta Ledezma LPN - 06/23/2023 9:07 AM EST Neurology Pre-Cert Request Medication/Disease State Information: Medication: Gabapentin 100mg Diagnosis (including ICD-10): Migraine - Chronic Migraine G43.709 - Self- administered - route pre-cert request to [id number] See corresponding visit note(s) for additional supporting clinical information. Office Information: Prescriber: Rosana Nolan PA-C documented in this encounter Plan of Treatment Upcoming Encounters Date Type Department Care Team (Latest Contact Info) Description 07/14/2023 10:30 AM EDT Immunization/Injec tion Hematology/Oncology Treatment, [place] [address] [facility] [place] [address] Nurse, Med [address] [place] [address] 07/16/2023 11:30 AM EDT Imaging Radiology [address] [place] [address] 07/30/2023 11:00 AM EDT Office Visit Otolaryngology/Head & Neck/Facial Plastic Surgery [address] [place] [address] Tyrone Tenorio MD [address] [place] [address] 09/08/2023 10:45 AM EDT [address]iology [address] [place] [address] 09/17/2023 10:45 AM EDT Office Visit Hematology/Oncology [facility] [place] [address] [place] [address] Kush Linton MD [address] [place] [address] 09/29/2023 1:00 PM EDT Office Visit Family Practice [facility] [place] [address] [place] [address] Hank Ivey, DO [address] [place] [address] 09/30/2023 12:30 PM EDT Office Visit Gynecology/Oncology , [place] [address] [place] [address] Ama Ruano PA-C [address] [place] [address] 10/14/2023 11:00 AM EDT Office Visit Cardiology, [facility] [address] [facility] [place] [address] Sarah Mohan CRNP [facility] [place] [address] 10/27/2023 3:00 PM EDT Office Visit [facility], [facility] [address] [place] [address] ZeShirley suazo PA-C [address] [place] [address] 11/09/2023 10:00 AM EDT Nurse Only Ancillary [facility] [place] [address] [place] [address] Im, Nurse Annual Wellness [facility] [address] [place] [address] 11/20/2023 9:30 AM EDT Hospital Encounter [facility]O [facility], Endoscopy Room [facility] [address] [place] [phone] Rogelio Yeh MD [address] [place] [address] 11/20/2023 9:30 AM EDT - 11/20/2023 10:00 AM EDT Surgery ENDO [facility], Endoscopy Room [facility] [address] [place] [phone] Rogelio Yeh MD [address] [place] [address] COLONOSCOPY FLEXIBLE PROXIMAL DIAGNOSTIC 03/03/2024 11:00 AM EDT Office Visit Rheumatology [place] [address] [place] [address] Avinash Rasmussen MD [facility] [place] [address] Scheduled Procedures Name Priority Associated Diagnoses Date/Ti me COLONOSCOPY FLEXIBLE PROXIMAL DIAGNOSTIC Recall History of colon polyps Tubular adenoma 11/20/2023 9:30 AM EDT Health Maintenance Due Date Last Done Comments COLONOSCOPY-EVERY 3 YRS AGES 18-100 04/23/2023 04/23/2020, 04/23/2020, 04/29/2016, Additional history exists Albumin/Creatinine Ratio 05/12/2023 023, 02/05/2021, 01/06/2020, Additional history exists CKD PHOS USE SMARTSET 51732 07/29/2023 07/28/2022, 06/24/2021, 05/10/2019, Additional history exists Depression Screening 11/01/2023 10/31/2022 GFR 11/09/2023 05/11/2023, 09/12/2022, 08/06/2022, Additional history exists CKD HGB USE SMARTSET 97113 01/10/202401/09, 01/09/2023, 08/06/2022, Additional history exists DTaP,Tdap,and [...] D LEVEL ONCE IN A LIFETIME-USE SMARTSET# 66965 Completed 05/11/2023, 07/28/2022, 06/24/2021, Additional history exists [...] this encounter Medical Devices Implanted Type Area Janitorial Supervisor Device Identifier Shelf Expiration Date Model / Serial / Lot 7fr X 24cm Bard Inlay [place] Ureteral Stent Implanted:Qty : 1 on 04/04/2014 by Sawyer Parson MD at OR [facility] Left: Ureter INACTIVE CR [employer] 10/01/2018 [id number] / / [id number] Port Power Mri W/8fr Cath - [id number] Implanted:Qty : 1 on 05/23/2015 by Nay Hernandez MD at OR [facility] Right: Subclavian CR BARD : PERIPHERAL VASCULAR 08/29/2016 [id number] / / [id number] documented as of this encounter Advance Directives [...] and were consensually agreed upon. Care Teams Paint Maker Relationship Specialty Start Date End Date Hank Ivey DO [address] [facility] [place] [address] PCP - General Family Medicine 10/07/16 documented as of this encounter
--- OUTSIDE RECORDS SUMMARY | 2023-09-27 13:14 | External Medical Summary | Summary of Care ---
Author Name Unknown Organization [facility] Address [address] [place] [address] Phone [phone] Care Team Providers Care Manager Bench Name Role Phone JessicaHank salas Cheyenne GUTIERREZ Primary Care Provider [phone] Encounter Details Date Type Department Care Team (Latest Contact Info) Description 07/30/2023 11:30 AM EDT [facility] [address], [place] [phone] Raeann Willingham Au.D. [address] [place] [address] Asymmetrical sensorineural hearing loss* Allergies Active Allergy Reactions Criticality Noted Date Comments [place] Oil 02/27/2021 Other reaction(s): ANAPHYLACTIC Ciprofloxacin Rash [...] mRNA, LNP-s, No Pre serve, 2-Dose Series ([employer]) 08/26/2021,03/29/2021,07/28/2020,07/02 COVID-19, MRNA-LNP, 23-24, P F, 30 MCG/0.3 mL, 12 YRS AND ABOVE, IM ([employer]-Comircape fear/harnett healthTXCOM) 04/07/2023 Covid-19, Mrna, Lnp-s, Pf, B ivalent, 30 Mcg, IM, 12 yrs and above ([employer]ogar) 02/14/2022 Pneumococcal Conjugate Vacc, 13 Valent (Prevnar) [...] as of this encounter Progress Notes * Raeann Willingham Au.D. - 07/30/2023 1:31 PM EDT Images from the original note were not included. AUDIOLOGIC EVALUATION Dianne Aguayo 82 year old : 1940 Audiologic evaluation was completed on referral from Otolaryngology clinic. Standard comprehensive audiometry 84393 supra-aural earphones, Good reliability Right: moderate sloping to profound sensorineural hearing loss Left: borderline sloping to moderately-severe sensorineural hearing loss Speech recognition thresholds were consistent with hearing thresholds. Word recognition scores, obtained via recorded material were: right 76%, left 88% Olivia Baldwin, [facility]-A Video Specialist Scan: audiogram documented in this encounter Plan of Treatment Upcoming Encounters Date Type Department Care Team (Latest Contact Info) Description 08/25/2023 11:00 AM EDT Immunization/Injec tion Hematology/Oncology Treatment, [place] [facility] [address] Nurse, Med [address] [place] [address] 09/08/2023 10:45 AM EDT Imaging Radiology [facility] [address] [facility], [place] 132 [facility] [place] [address] 09/17/2023 10:45 AM EDT Office Visit Hematology/Oncology [facility] [place] [address] [place] [phone] Kush Linton MD 200 [facility] [place] [address] 09/29/2023 1:00 PM EDT Office Visit Family Practice [facility] [address] [place] [address] Hank Ivey, DO [address] [facility] [place] [address] 09/30/2023 12:30 PM EDT Office Visit Gynecology/Oncology , [place] [address] [place] [address] Ama Ruano PA-C [address] [place], [place] [address] 10/21/2023 8:30 AM EDT Office Visit Cardiology, [facility] [address] [place] [address] Sarah Mohan CRNP [address] [facility] [place] [address] 10/27/2023 3:00 PM EDT Office Visit Nephrology, [facility] [address] [place] [address] ZeShirley suazo PA-C 200 [facility] [place] [address] 11/09/2023 10:00 AM EDT Nurse Only Ancillary [facility] [address] [place] [address] Im, Nurse Annual Wellness [facility] [address] [facility] [place] [address] 11/20/2023 9:30 AM EDT Hospital Encounter [facility]O [facility], Endoscopy Room [facility] [address] [place] [phone] Rogelio Yeh MD [address] [place] [address] 11/20/2023 9:30 AM EDT - 11/20/2023 10:00 AM EDT Surgery ENDO [facility], Endoscopy Room [facility] [address] [place] [address] Rogelio Yeh MD [address] [place] [address] COLONOSCOPY FLEXIBLE PROXIMAL DIAGNOSTIC 01/28/2024 11:00 AM EDT Office Visit Otolaryngology/Head & Neck/Facial Plastic Surgery [address] [place] [address] Tyrone Tenorio MD [address] [place] [address] 03/03/2024 11:00 AM EDT Office Visit Rheumatology [place] [address] [place] [address] Avinash Rasmussen MD [facility] [place] [address] Scheduled Procedures Name Priority Associated Diagnoses Date/Ti me COLONOSCOPY FLEXIBLE PROXIMAL DIAGNOSTIC Recall History of colon polyps Tubular adenoma 11/20/2023 9:30 AM EDT Health Maintenance Due Date Last Done Comments COLONOSCOPY-EVERY 3 YRS AGES 18-100 04/23/2023 04/23/2020, 04/23/2020, 04/29/2016, Additional history exists Albumin/Creatinine Ratio 05/12/20232 023, 02/05/2021, 01/06/2020, Additional history exists CKD PHOS USE SMARTSET 16792 07/29/2023 07/28/2022, 06/24/2021, 05/10/2019, Additional history exists Depression Screening 11/01/2023 10/31/2022 GFR 11/09/2023 05/11/2023, 09/0 12/2022, 08/06/2022, Additional history exists CKD HGB USE SMARTSET 78741 01/10/202401/09, 01/09/2023, 08/06/2022, Additional history exists DTaP,Tdap,and [...] D LEVEL ONCE IN A LIFETIME-USE SMARTSET# 45599 Completed 05/11/2023, 07/28/2022, 06/24/2021, Additional history exists [...] this encounter Medical Devices Implanted Type Area Disc Pad Plate Filler Device Identifier Shelf Expiration Date Model / Serial / Lot 7fr X 24cm Bard Inlay [place] Ureteral Stent Implanted:Qty : 1 on 04/04/2014 by Sawyer Parson MD at OR [facility] Left: Ureter INACTIVE CR [employer] INC 10/01/2018 [id number] / / [id number] Port Power Mri W/8fr Cath - [id number] Implanted:Qty : 1 on 05/23/2015 by Nay Hernandez MD at OR [facility] Right: Subclavian CR BARD : PERIPHERAL VASCULAR 08/29/2016 [id number] / / [id number] documented as of this encounter Procedures Procedure Name Priority Date/Time Associated Diagnosis Comments AUDIOMETRIC RESULT 07/30/2023 documented in this encounter Results * AUDIOMETRIC RESULT (07/30/2023) 07/30/2023 Raeann Baker [facility] documented in this encounter Visit Diagnoses Diagnosis Asymmetrical sensorineural hearing loss- Primary Sensorineural hearing loss, asymmetrical History of colon [...] were consensually agreed upon. Care Teams Manager Bench Relationship Specialty Start Date End Date Hank Ivey DO [address] [facility] [place] [address] PCP - General Family Medicine 10/07/16 documented as of this encounter
--- OUTSIDE RECORDS SUMMARY | 2023-09-27 13:14 | External Medical Summary | Summary of Care ---
Author Name Unknown Organization [facility] Address [address] [place] [address] Phone [phone] Care Team Providers Care Copy Editor Name Role Phone Hank Ivey DO Primary Care Provider [phone] Reason for Visit * Reason Onset Date Comments Medication Refill 07/17/2023 Encounter Details Date Type Department Care Team ([facility] Contact Info) Description 07/17/2023 Refill Family Practice [facility] [address] [facility] [place] [address] Hank Ivey DO 200 [place] [address] Allergies Active Allergy Reactions Criticality Noted Date Comments [place] Oil 02/27/2021 Other reaction(s): ANAPHYLACTIC Ciprofloxacin Rash [...] as of this encounter (statuses as of 07/20/2023) Medications Medication Sig Dispensed Refills Start Date [...] the morning. 90 Tablet 1 07/20/2023 Active Atorvastatin Calcium 20 MG Oral Tablet (Lipitor) Take 1 Tablet by mouth in the morning. 90 Tablet 1 12/05/2022 4 Discontinue d(Refill) Hospital, Clinic, or Other Facility Administered Medication Ordered Dose Route Frequency Start Date End Date Status albuterol (PROVENTIL HFA) inhaler 4 PuffIndications:SOB (shortness of breath) 4 Puff IN Q4H PRN 01/23/2017 Act jacinta documented as of this encounter (statuses as of 07/20/2023) Active Problems Problem Noted Date Diagnosed Date [...] as of this encounter (statuses as of 07/20/2023) Resolved Problems Problem Noted Date Diagnosed Date [...] 018 Urticaria 08/27/2003 05/06/2017 Overview: sees Dr Valedz for recurrent hives Other chest pain 07/18/2003 09/04/2010 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 Osteoporosis 03/14/2002 02/18/2022 Calculus of kidney 08/01/1998 8 Overview: Last fall 2012 lithotripsy, left side HTN, goal below 140/90 11/12 Cough 06/25/2002 Heartburn 05/06/2017 Irritable bowel syndrome documented as of this encounter (statuses as of 07/20/2023) Immunizations Name Administration Dates Next Due COVID-19 mRNA, LNP-s, No Pre serve, 2-Dose Series ([employer]) 08/26/2021,03/29/2021,07/28/2020,07/02 COVID-19, MRNA-LNP, 23-24, P F, 30 MCG/0.3 mL, 12 YRS AND ABOVE, IM ([employer]) 04/07/2023 Covid-19, Mrna, Lnp-s, Pf, B ivalent, 30 Mcg, IM, 12 yrs and above ([employer]) 02/14/2022 Pneumococcal Conjugate Vacc, 13 Valent (Prevnar) [...] encounter Miscellaneous Notes * Telephone Encounter - Urszula Marrero [facility] - 07/20/2023 10:50 AM EDTSigned Prescriptions: Disp Refills Atorvastatin Calcium 20 MG Oral Tablet (Li*90 Tab*1 Sig: Take 1 Tablet by mouth in the morning.Authorizing Provider: YARA LARA User: URSZULA MARRERO * Telephone Encounter - Tiffanie Sapp PHARM Tech - 07/17/2023 3:23 PM EDT Did you pend patient's preferred pharmacy and medication before forwarding?yes Pharmacy: [facility] [facility] [place] Pending Prescriptions: Disp Refills Atorvastatin Calcium 20 MG Oral Tablet (L*90 Tab*1 Sig: Take 1 Tablet by mouth in the morning. Last Visit: 03/13/2023 (in office), Visit date not found (telemedicine) Next Visit: 09/29/2023 If no future appointments scheduled, and last appointment is greater than a year ago, please schedule patient for a follow-up appointment Last date the medication was ordered: 12-05-22 Is this request for a controlled substance?No Urine Drug Screen:No results found. However, due to the size of the patient record, not all encounters were searched. Please check Results Review for a complete set of results. Patient Phone Numbers Labs: Lab Results Component Value Date/Time CREAT 1.0 05/11/2023 11:47 AM CREAT 1.2 (H) 04/20/2020 02:03 PM POTASSIUM 4.0 05/11/2023 11:47 AM POTASSIUM 4.1 04/20/2020 02:03 PM TSH 0.90 02/26/2021 03:19 PM TSH 1.70 01/21/2017 08:36 AM LDLCALC 58 01/09/2023 09:41 AM LDLCALC 72 05/10/2019 09:23 AM LDLDIRECT NOT APPLICABLE 05/10/2019 09:23 AM LDLDIRECT 121 08/04/2013 03:27 PM ALT 14 01/09/2023 09:41 AM ALT 16 07/20/2019 06:24 AM HGBA1C 6.2 (H) 05/11/2023 11:47 AM HGBA1C 5.2 02/03/2020 04:22 PM documented in this encounter Plan of Treatment Upcoming Encounters Date Type Department Care Team (Latest Contact Info) Description 07/30/2023 11:00 AM EDT Office Visit Otolaryngology/Head & Neck/Facial Plastic Surgery [address] [place] [facility] [place] [address] Tyrone Tenorio MD [address] [place] [address] 08/25/2023 11:00 AM EDT Immunization/Injec tion Hematology/Oncology Treatment, [place] [address] [place] [address] Nurse, Med [address] [place] [address] 09/08/2023 10:45 AM EDT Imaging Radiology [facility] 1st [facility], [place] [address] [place] [address] 09/17/2023 10:45 AM EDT Office Visit Hematology/Oncology [facility] [place] [address] [place] [address] Kush Linton MD [address] [place] [address] 09/29/2023 1:00 PM EDT Office Visit Family Practice [facility] [place] [address] [place] [address] Hank Ivey, [address] [facility] [place] [address] 09/30/2023 12:30 PM EDT Office Visit Gynecology/Oncology , [place] [address], [place] [phone] Ama Ruano PA-C [address] [place], [place] [address] 10/14/2023 11:00 AM EDT Office Visit Cardiology, [facility] [address] Sarah Mohan CRNP [facility] [address] 10/27/2023 3:00 PM EDT Office Visit Nephrology, [facility] [address] [place] [address] ZeShirley suazo PA-C [facility] [place] [address] 11/09/2023 10:00 AM EDT Nurse Only Ancillary [facility] [place] [address] [place] [address] Im, Nurse Annual Wellness [facility] [address] [place] [address] 11/20/2023 9:30 AM EDT Hospital Encounter [facility]O [facility], Endoscopy Room [facility] [address] [place] [address] Rogelio Yeh MD [address] [place] [address] 11/20/2023 9:30 AM EDT - 11/20/2023 10:00 AM EDT Surgery ENDO [facility], Endoscopy Room [facility] [address] [place] [phone] Rogelio Yeh MD [address] [place] [address] COLONOSCOPY FLEXIBLE PROXIMAL DIAGNOSTIC 03/03/2024 11:00 AM EDT Office Visit Rheumatology [place] [phone] [employer] [place] [address] Avinash Rasmussen MD [address] [employer] [place] [address] Scheduled Procedures Name Priority Associated Diagnoses Date/Ti me COLONOSCOPY FLEXIBLE PROXIMAL DIAGNOSTIC Recall History of colon polyps Tubular adenoma 11/20/2023 9:30 AM EDT Health Maintenance Due Date Last Done Comments COLONOSCOPY-EVERY 3 YRS AGES 18-100 04/23/2023 04/23/2020, 04/23/2020, 04/29/2016, Additional history exists Albumin/Creatinine Ratio 05/12/2023 023, 02/05/2021, 01/06/2020, Additional history exists CKD PHOS USE SMARTSET 87982 07/29/2023 07/28/2022, 06/24/2021, 05/10/2019, Additional history exists Depression Screening 11/01/2023 10/31/2022 GFR 11/09/2023 05/11/2023, 09/0 12/2022, 08/06/2022, Additional history exists CKD HGB USE SMARTSET 77135 01/10/202401/09, 01/09/2023, 08/06/2022, Additional history exists DTaP,Tdap,and [...] D LEVEL ONCE IN A LIFETIME-USE SMARTSET# 14862 Completed 05/11/2023, 07/28/2022, 06/24/2021, Additional history exists [...] this encounter Medical Devices Implanted Type Area Tutorial Laboratory Supervisor Device Identifier Shelf Expiration Date Model / Serial / Lot 7fr X 24cm Bard Inlay [place] Ureteral Stent Implanted:Qty : 1 on 04/04/2014 by Sawyer Parson MD at OR [facility] Left: Ureter INACTIVE CR [employer] INC 10/01/2018 [id number] / / [id number] Port Power Mri W/8fr Cath - [id number] Implanted:Qty : 1 on 05/23/2015 by Nay Hernandez MD at OR [facility] Right: Subclavian CR BARD : PERIPHERAL VASCULAR 08/29/2016 [id number] / / [id number] documented as of this encounter Advance Directives [...] and were consensually agreed upon. Care Teams Copy Editor Relationship Specialty Start Date End Date Hank Ivey DO [address] [facility] [place] [address] PCP - General Family Medicine 10/07/16 documented as of this encounter
[2023-09-27] MEDS: SODIUM CHLORIDE 0.9% 1,000 ML IV SCH (13:42)
[2023-09-27] MEDS: ONDANSETRON INJ 2 MG/ML 2 ML VIAL IV STA (13:42)
[2023-09-27] MEDS: PROMETHAZINE 6.25 MG/50.25 ML BAG IV STA (13:42)
--- NOTE | 2023-09-27 13:42 | Emergency Department Note ---
Impression & Plan Weakness, Leukocytosis, Fever, Malignancy, Pleural effusion ED Provider Note NAME: MELANIE AVILA AGE: 82 SEX: F : 1940 ARRIVES VIA: Walk-In INFORMANT: [Patient][family] ED PROVIDER(S): [Farhat Griffin MD] CHIEF COMPLAINT: Nausea, weakness HISTORY OF PRESENT ILLNESS: The patient is an 82-year-old female who was diagnosed with cancer earlier this year. She has been undergoing a workup to try and determine the type of cancer. The patient had a PET scan showing hot areas at the liver, some lymph nodes and T6 vertebral body. She had a biopsy of the liver performed within the last week or so and, the results are still pending. The patient did receive IV fluids last week as she was dehydrated. She has had no appetite or intake. She feels weak and exhausted. The patient was told that she had a high calcium, she has some repeat levels drawn but, she is not sure of the repeat calcium level value. The patient in the last day or so has developed a fever. She is more weak and really cannot do anything for herself at home. She does live alone. There has been no cough or congestion. No chest pain or shortness of breath. No vomiting or diarrhea, no urinary complaints. Patient is using Zofran 8 mg with no relief, she has also tried Compazine without relief. She currently complains of nausea. PMHx/PSHx/Social Hx: See Below PHYSICAL EXAM: GENERAL: Patient is in no acute distress. HEENT: No acute trauma, normocephalic atraumatic, mucous membranes moist, no nasal congestion. NECK: No stridor, no adenopathy, no meningismus, trachea is midline. LUNGS: Few crackles heard at both bases, mostly on the right. No wheezing or respiratory distress. HEART: Without murmurs gallops or rubs, regular rate and rhythm. ABDOMEN: Soft, nontender, no peritonitis. EXTREMITIES: No cyanosis, full range of motion of all the joints without pain or difficulty. NEUROLOGIC: Oriented x 3, no acute motor or sensory deficits, no focal weakness. SKIN: No jaundice, no diaphoresis. Somewhat pale. DIFFERENTIAL DIAGNOSIS: Dehydration, electrolyte imbalance, anemia, UTI, viral illness, debilitation, among others. EMERGENCY DEPARTMENT PROCEDURES: MEDICAL DECISION MAKING: There is a significant leukocytosis at 21,000, this of course could be consistent with infection. There was a normal hemoglobin and platelet count. Potassium slightly low at 3.3. No renal failure. Lactic acid level was not elevated making severe sepsis less likely. There were some liver enzyme elevations noted, likely consistent with her liver lesions. ECG showed a sinus rhythm, there was no acute ischemia. Cardiac enzyme testing x 1 was not consistent with acute cardiac injury. The patient appeared to be in a euthyroid state. Urinalysis did not show true infection. Respiratory bio fire was negative. Chest x-ray does show a right sided effusion with a possible underlying consolidation. Abdominal and pelvis CT shows lesions consistent with her malignancy diagnosis. No acute surgical process or findings to suggest abscess/infection. The patient was given IV saline, 1 L. She received IV cefepime as empiric antibiotic coverage. She was given IV Zofran and IV Phenergan for nausea. She received IV Tylenol for headache. Patient presents with persistent nausea and vomiting despite 2 different antinausea medications prescribed in the outpatient setting. She is dehydrated. She is weak, she lives alone. She just recently developed a fever, she has a significant leukocytosis. At this point, I do think the patient requires a hospital stay, further workup and care. She is not safe for discharge. I did speak with the patient and case management, the on-call hospitalist was consulted. I am concerned for infection although, at this point, a source has not been identified. Prior/Outside records/notes reviewed: None ECG per my interpretation: Indication was weakness. The ECG shows a normal sinus rhythm with a rate of 85. There is no ST elevation, no PVCs. There is some baseline artifact. QTc is 449. Continuous Cardiac Monitoring per my interpretation: An order was placed for continuous cardiac monitoring. The monitor shows a rate of 93 with normal sinus rhythm. Imaging/x-ray results per my interpretation: Chest x-ray does show a right pleural effusion with a potential underlying consolidation. No pneumothorax. Chronic Medical/Social conditions affecting care: Advanced age. Care/Management discussed with: Case management, the on-call hospitalist. Level of care consideration(s): After review of the information above and other included data: --I believe the patient requires escalation of care to admission DISPOSITION: Admission Past Med/Surg History Problem List Pleural effusion (Acute) Malignancy (Acute) Fever (Acute) Leukocytosis (Acute) Weakness (Acute) De Quervain's tenosynovitis Stress fracture Thigh pain Status post reverse total replacement of left shoulder (~03/2022) HTN (hypertension) (Chronic) Kidney calculi (Chronic) Uterine cancer (Chronic) CTS (carpal tunnel syndrome) (Chronic) NAYA on CPAP (Chronic) Age related osteoporosis (Chronic) H/O mastectomy (Chronic) H/O: hysterectomy (Chronic) H/O tubal ligation (Chronic) Hx of tonsillectomy (Chronic) H/O knee surgery (Chronic) H/O dilation and curettage (Chronic) H/O eye surgery (Chronic) Cellulitis (Acute) Hypertensive urgency Hypokalemia (Acute) Hypomagnesemia Neutropenic fever Encounter for pre-operative examination Bronchogenic cancer of left lung Chronic bronchitis Cervical spondylosis Asymptomatic hypertensive urgency Stress fracture of left femur Acute leg pain (Acute) Difficulty walking (Acute) Pressure ulcer of sacrum (Acute) DJD (degenerative joint disease) of cervical spine Stage II pressure ulcer (Acute) Pulmonary emboli (Acute) Acute hypokalemia (Acute) Dehydration (Acute) 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 Medical History History of Clostridioides difficile infection After abx, s/p vanco completed 12/31- diarrhea resolved per PAT visit 01/01 Pulmonary embolism 2020, reason for Eliquis; f/u dr morgan, [facility] once/year Sleep apnea Remote hx- no device currently ("lost device") History of bronchitis Reason for inhaler PRN, no recent issues Osteoporosis History of skin cancer Nose and left leg (s/p excision) History of breast cancer s/p chemo, left mastectomy; limb restriction lt arm History of lung cancer s/p RUL wedge resection NSCLC - on Osimertinib (Tagrisso) per heme/onc History of uterine cancer s/p Hysterectomy History of kidney stones Kidney disease Stage III Acid reflux Anxiety Gout Hx Hypertension Surgical History Hx of myringotomy Hx of cataract extraction History of open reduction and internal fixation (ORIF) procedure Status post reverse arthroplasty of shoulder History of surgery History of colonoscopy History of tonsillectomy and adenoidectomy History of total right knee replacement History of left mastectomy History of lung surgery History of hysterectomy Family History Mother History of breast cancer History of ovarian cancer Grandmother History of colon cancer Social History Smoking Status: Never smoker Second Hand Exposure: Yes ( used to smoke); Do You Dip or Chew Tobacco: No; Hx Alcohol Use: Yes Alcohol type: wine Hx Substance Use: No Preferred Language: Qatari Communication Ability: Effective 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 Required: No Beliefs That Will Affect Care: None marital status: Current Living Situation: Spouse Current Living Situation Comment: lives in house Feels Safe at Home: Yes Assistive Devices: None Allergies Allergies Allergy/AdvReac Type Severity Reaction Status Date / Time castor oil Allergy Severe ANAPHYLAXIS Verified 09/27/23 16:45 paclitaxel Allergy Severe ANAPHYLAXIS Verified 09/27/23 16:45 ciprofloxacin Allergy Intermediate HIVES/RASH Verified 09/27/23 16:45 codeine AdvReac Intermediate GI SYMPTOMS Verified 09/27/23 16:45 cyproheptadine AdvReac Intermediate LETHARGY Verified 09/27/23 16:45 doxepin AdvReac Intermediate LETHARGY Verified 09/27/23 16:45 gabapentin AdvReac Intermediate GI Verified 09/27/23 16:45 SYMPTOMS/"FEEL OUT OF IT" hydrocodone AdvReac Intermediate GI SYMPTOMS Verified 09/27/23 16:45 meloxicam AdvReac Intermediate DIZZINESS, Verified 09/27/23 16:45 HEADACHE, NAUSEA oxycodone AdvReac Intermediate GI SYMPTOMS Verified 09/27/23 16:45 prednisone AdvReac Intermediate ELEVATED Verified 09/27/23 16:46 GLUCOSE tramadol AdvReac Intermediate GI SYMPTOMS Verified 09/27/23 16:46 Home Meds Home Medications Medication Instructions Recorded Confirmed albuterol sulfate 90 mcg/actuation 2 puff inhalation QID PRN SOB 06/23/18 09/27/23 aerosol inhaler amlodipine 10 mg tablet 10 mg PO QAM 06/23/18 09/27/23 atorvastatin 20 mg tablet 20 mg PO QAM 06/23/18 09/27/23 colchicine 0.6 mg tablet 0.6 mg PO BID PRN GOUT 06/23/18 09/27/23 metoprolol succinate 50 mg 50 mg PO QAM 06/23/18 09/27/23 tablet,extended release 24 hr tizanidine 4 mg capsule 4 mg PO TID PRN MUSCLE SPASMS 06/23/18 09/27/23 fluticasone propionate 50 2 spray intranasal HS Congestion 12/19/19 09/27/23 mcg/actuation nasal spray,suspension ondansetron HCl 8 mg tablet 8 mg PO Q8H PRN Nausea 12/19/19 09/27/23 prochlorperazine maleate 10 mg 10 mg PO Q6H PRN Nausea 12/19/19 09/27/23 tablet apixaban 5 mg tablet (Eliquis) 5 mg PO BID 12/30/21 09/27/23 famotidine 20 mg tablet (Pepcid) 20 mg PO BID PRN Heartburn 12/30/21 09/27/23 amoxicillin 500 mg capsule 2,000 mg PO DIRECTED PRN 1 HR 09/27/23 09/27/23 PRIOR TO DENTAL PROCEDURES cholecalciferol (vitamin D3) 50 2,000 unit PO DAILY 09/27/23 09/27/23 mcg (2,000 unit) capsule (Vitamin D3) fexofenadine 180 mg tablet 180 mg PO DAILY PRN ALLERGY 09/27/23 09/27/23 SYPMTOMS hydrochlorothiazide 12.5 mg tablet 12.5 mg PO QAM 09/27/23 09/27/23 lisinopril 40 mg tablet 40 mg PO QAM 09/27/23 09/27/23 magnesium oxide 400 mg PO DAILY 09/27/23 09/27/23 meclizine 25 mg tablet 25 mg PO TID PRN Dizziness 09/27/23 09/27/23 potassium citrate 10 mEq (1,080 10 meq PO BID 09/27/23 09/27/23 mg) tablet,extended release Results & Data (ED) Vital Signs Vital Signs - 24 hr 09/27/23 12:55 09/27/23 13:22 09/27/23 15:21 Temperature 37.2 C Temperature Source Temporal Artery Scan Pulse Rate 87 93 H Pulse Rate [Apical] 89 Respiratory Rate 20 18 Respiratory Effort / Characteristics Non-Labored Spontaneous Respiratory Depth Normal Respiratory Pattern Regular Blood Pressure 142/81 H Blood Pressure [Right Arm] 176/76 H Blood Pressure Mean 101 Blood Pressure Mean [Right Arm] 109 Pulse Oximetry 94 92 Oxygen Delivery Method Room Air Room Air Oxygen Flow Rate Sepsis Recent Fever Within 48 Hours No Sepsis New/Unexplained Change in Mental Status N/A Sepsis Action Taken by Nursing No Action Required Oxygen Flow Rate - Titration Pulse Oximetry Post Tiitration 09/27/23 15:46 Temperature Temperature Source Pulse Rate Pulse Rate [Apical] Respiratory Rate Respiratory Effort / Characteristics Respiratory Depth Respiratory Pattern Blood Pressure Blood Pressure [Right Arm] Blood Pressure Mean Blood Pressure Mean [Right Arm] Pulse Oximetry 89 L Oxygen Delivery Method Nasal Cannula Oxygen Flow Rate 0 Sepsis Recent Fever Within 48 Hours Sepsis New/Unexplained Change in Mental Status Sepsis Action Taken by Nursing Oxygen Flow Rate - Titration 1 Pulse Oximetry Post Tiitration 94 Home Medications Current Medication List: was personally reviewed by me Laboratory Data Attestation: I reviewed the patient's lab results. 09/27/23 13:16 09/27/23 13:16 Lab Results 09/27/23 09/27/23 09/27/23 Range/Units 13:16 13:28 13:49 WBC 21.87 H (4.8-10.8) K/ul RBC 4.76 (4.20-5.40) M/uL Hgb 14.0 (12.0-16.0) g/dl Hct 41.2 (37.0-47.0) % MCV 86.6 (80.0-100.0) fL MCH 29.4 (25.0-34.0) pg MCHC 34.0 (32.0-36.0) g/dL RDW Std Deviation 44.5 (36.4-46.3) fL RDW Coeff of Thien 14.0 (11.5-14.5) % Plt Count 274 (130-400) K/uL MPV 10.3 (9.4-12.4) fL Immature Gran % (Auto) 0.5 % Neut % (Auto) 83.8 % Lymph % (Auto) 6.0 % [place] % (Auto) 8.2 % Eos % (Auto) 1.1 % Baso % (Auto) 0.4 % Neut # (Auto) 18.35 H (1.40-6.50) K/uL Lymph # (Auto) 1.32 (1.20-3.40) K/uL [place] # (Auto) 1.79 H (0.11-0.59) K/uL Eos # (Auto) 0.23 (0.00-0.50) K/uL Baso # (Auto) 0.08 (0.00-0.20) K/uL Immature Gran # (Auto) 0.10 (0.01-0.20) K/uL Sodium 137 (136-145) mmol/L Potassium 3.3 L (3.5-5.1) mmol/L Chloride 102 (98-107) mmol/L Carbon Dioxide 24 (21-32) mmol/L Anion Gap 11 (3-11) BUN 22 (6-23) mg/dl Creatinine 1.03 (0.6-1.2) mg/dl Est Cr Clr Drug Dosing Not Reportable Est GFR ( Amer) 58.6 ml/min Est GFR (Non-Af Amer) 50.6 ml/min BUN/Creatinine Ratio 21.4 H (10-20) Glucose 111 H (70-99(Fasting)) mg/dl Lactate 1.5 (0.4-2.0) mmol/L Calcium 9.2 (8.6-10.3) mg/dl Magnesium 1.8 (1.7-2.4) mg/dl Total Bilirubin 1.1 H (0.2-1.0) mg/dl AST 81 H (13-39) U/L ALT 40 (7-52) U/L Alkaline Phosphatase 302 H (34-104) U/L Troponin I High Sens 7.5 (0-14) pg/ml Total Protein 6.3 (6.0-8.3) gm/dl Albumin 4.2 (3.4-5.0) gm/dl Globulin 2.1 L (2.5-4.0) gm/dl Albumin/Globulin Ratio 2.0 (0.9-2) TSH 1.153 (0.300-4.500) uIu/ml Urine Color Urine Appearance (Clear) Urine pH (4.5-7.5) Ur Specific [place] (1.000-1.030) Urine Protein (Negative) Urine Glucose (UA) (Negative) Urine Ketones (Negative) Urine Blood (Negative) Urine Nitrite (Negative) Urine Bilirubin (Negative) Urine Urobilinogen (Negative) Ur Leukocyte Esterase (Negative) Urine WBC (Auto) (0-5) /hpf Urine RBC (Auto) (0-2) /hpf U Hyaline Cast (Auto) (0-2) /lpf U Epithel Cells (Auto) (0-2) /hpf Urine Bacteria (Auto) (None Seen) Adenovirus (PCR) Not Detected (NotDetected) B. pertussis DNA (PCR) Not Detected (NotDetected) B.parapertussis DNA PCR Not Detected (NotDetected) C. pneumoniae DNA (PCR) Not Detected (NotDetected) Coronavirus OC43 (PCR) Not Detected (NotDetected) Coronavirus HKU1 (PCR) Not Detected (NotDetected) Coronavirus 229E (PCR) Not Detected (NotDetected) SARS-CoV-2 (PCR) Not Detected (NotDetected) Coronavirus NL63 (PCR) Not Detected (NotDetected) Human Metapneumovir PCR Not Detected (NotDetected) Influenza Type A (PCR) Not Detected (NotDetected) Influenza Type B (PCR) Not Detected (NotDetected) M. pneumoniae (PCR) Not Detected (NotDetected) Parainfluenza 1 (PCR) Not Detected (NotDetected) Parainfluenza 2 (PCR) Not Detected (NotDetected) Parainfluenza 3 (PCR) Not Detected (NotDetected) Parainfluenza 4 (PCR) Not Detected (NotDetected) RSV (PCR) Not Detected (NotDetected) Entero/Rhino (PCR) Not Detected (NotDetected) 09/27/23 Range/Units 15:06 WBC (4.8-10.8) K/ul RBC (4.20-5.40) M/uL Hgb (12.0-16.0) g/dl Hct (37.0-47.0) % MCV (80.0-100.0) fL MCH (25.0-34.0) pg MCHC (32.0-36.0) g/dL RDW Std Deviation (36.4-46.3) fL RDW Coeff of Thien (11.5-14.5) % Plt Count (130-400) K/uL MPV (9.4-12.4) fL Immature Gran % (Auto) % Neut % (Auto) % Lymph % (Auto) % [place] % (Auto) % Eos % (Auto) % Baso % (Auto) % Neut # (Auto) (1.40-6.50) K/uL Lymph # (Auto) (1.20-3.40) K/uL [place] # (Auto) (0.11-0.59) K/uL Eos # (Auto) (0.00-0.50) K/uL Baso # (Auto) (0.00-0.20) K/uL Immature Gran # (Auto) (0.01-0.20) K/uL Sodium (136-145) mmol/L Potassium (3.5-5.1) mmol/L Chloride (98-107) mmol/L Carbon Dioxide (21-32) mmol/L Anion Gap (3-11) BUN (6-23) mg/dl Creatinine (0.6-1.2) mg/dl Est Cr Clr Drug Dosing Est GFR ( Amer) ml/min Est GFR (Non-Af Amer) ml/min BUN/Creatinine Ratio (10-20) Glucose (70-99(Fasting)) mg/dl Lactate (0.4-2.0) mmol/L Calcium (8.6-10.3) mg/dl Magnesium (1.7-2.4) mg/dl Total Bilirubin (0.2-1.0) mg/dl AST (13-39) U/L ALT (7-52) U/L Alkaline Phosphatase (34-104) U/L Troponin I High Sens (0-14) pg/ml Total Protein (6.0-8.3) gm/dl Albumin (3.4-5.0) gm/dl Globulin (2.5-4.0) gm/dl Albumin/Globulin Ratio (0.9-2) TSH (0.300-4.500) uIu/ml Urine Color Yellow Urine Appearance Clear (Clear) Urine pH 7.5 (4.5-7.5) Ur Specific [place] 1.006 (1.000-1.030) Urine Protein Trace H (Negative) Urine Glucose (UA) Negative (Negative) Urine Ketones Negative (Negative) Urine Blood 1+ H (Negative) Urine Nitrite Negative (Negative) Urine Bilirubin Negative (Negative) Urine Urobilinogen Negative (Negative) Ur Leukocyte Esterase 2+ H (Negative) Urine WBC (Auto) 6-10 H (0-5) /hpf Urine RBC (Auto) 3-5 H (0-2) /hpf U Hyaline Cast (Auto) 0-2 (0-2) /lpf U Epithel Cells (Auto) 0-2 (0-2) /hpf Urine Bacteria (Auto) None Seen (None Seen) Adenovirus (PCR) (NotDetected) B. pertussis DNA (PCR) (NotDetected) B.parapertussis DNA PCR (NotDetected) C. pneumoniae DNA (PCR) (NotDetected) Coronavirus OC43 (PCR) (NotDetected) Coronavirus HKU1 (PCR) (NotDetected) Coronavirus 229E (PCR) (NotDetected) SARS-CoV-2 (PCR) (NotDetected) Coronavirus NL63 (PCR) (NotDetected) Human Metapneumovir PCR (NotDetected) Influenza Type A (PCR) (NotDetected) Influenza Type B (PCR) (NotDetected) M. pneumoniae (PCR) (NotDetected) Parainfluenza 1 (PCR) (NotDetected) Parainfluenza 2 (PCR) (NotDetected) Parainfluenza 3 (PCR) (NotDetected) Parainfluenza 4 (PCR) (NotDetected) RSV (PCR) (NotDetected) Entero/Rhino (PCR) (NotDetected) Administered Medications Discontinued Medications Promethazine HCl (Phenergan) 6.25 mg in 50.25 mls @ 201 mls/hr IV NOW STA Stop: 09/27/23 13:44 Last Infusion: 09/27/23 14:04 Dose: Infused Documented By: Admin: 09/27/23 13:42 Dose: 201 mls/hr Documented By: DANISH Sodium Chloride (Nss) 1,000 mls @ 999 mls/hr IV .Q1H1M BERNARDA Stop: 09/27/23 14:30 Last Infusion: 09/27/23 15:04 Dose: Infused Documented By: Admin: 09/27/23 13:42 Dose: 999 mls/hr Documented By: DANISH Cefepime HCl (Maxipime) 2,000 mg in 20 mls @ 5 mls/min IV NOW STA; Protocol Stop: 09/27/23 13:52 Last Admin: 09/27/23 15:04 Dose: 5 mls/min Documented By: DANISH Acetaminophen (Ofirmev) 1,000 mg in 100 mls @ 400 mls/hr IV NOW STA Stop: 09/27/23 15:22 Last Infusion: 09/27/23 15:46 Dose: Infused Documented By: Admin: 09/27/23 15:16 Dose: 400 mls/hr Documented By: DANISH Ioversol (Optiray 320 100ml) 90 ml IV ONCE ONE Stop: 09/27/23 15:55 Last Admin: 09/27/23 15:54 Dose: 90 ml Documented By: ESVIN Ondansetron HCl (Ondansetron Inj 2 Mg/Ml 2 Ml Vial) 4 mg IV NOW STA Stop: 09/27/23 13:31 Last Admin: 09/27/23 13:42 Dose: 4 mg Documented By: DANISH Imaging Data Radiologist's Impression: Chest X-Ray 09/27/23 13:31 XR chest 1V portable CLINICAL HISTORY: weakness TECHNIQUE: Single frontal radiograph of the chest was obtained. Comparison: Comparison is made to chest radiograph 01/01/2022 FINDINGS: A port catheter is seen. Cardiomegaly is noted. The lungs are clear. Small right pleural effusion is seen. IMPRESSION: Small right pleural effusion is seen. Underlying airspace opacity likely represents atelectasis with or without pneumonia/aspiration. ACT 112: Negative or not required by law. Electronically signed by: Antwon Greenberg M.D. 09/27/2023 3:06 PM Abdomen/Pelvis CT 09/27/23 14:24 CT abd pelvis IV con only CLINICAL HISTORY: fever, recent liver biopsy TECHNIQUE: Helical axial images of the abdomen and pelvis were obtained and displayed. Automated dose lowering techniques and/or adjustment according to patient size were utilized for this exam. This exam was performed with intravenous contrast. CT DOSE: 1176.11 mGy.cm COMPARISON: Comparison is made to CT abdomen pelvis 08/26/2015 FINDINGS: Lower chest: There is a small right pleural effusion with associated atelectasis. Cardiomegaly is seen. Liver: Innumerable, relatively hypoenhancing hepatic lesions are seen. Gallbladder and biliary tree: Cholelithiasis is seen without evidence of cholecystitis. No intra- or extrahepatic biliary ductal dilation. Pancreas: Fatty replacement of the pancreas is seen. Spleen: Mildly hypoenhancing splenic lesions are also seen. Adrenals: There is a right adrenal nodule measuring 14 mm in diameter, new from prior exam. Nodular thickening of the left adrenal gland is unchanged. Kidneys and ureters: Nonobstructive nephrolithiasis is seen. Bilateral renal cysts are seen. Bladder: Unremarkable. Reproductive organs: Patient is status post hysterectomy. Bowel: The appendix is normal. Lymph nodes Retroperitoneal: Unremarkable. Pelvic: Unremarkable. Mesenteric: Unremarkable. Peritoneum: Normal. Vessels: Unremarkable. Abdominal wall: Unremarkable. Bones: Degenerative changes in the visualized spine. Multiple sclerotic foci are seen in the skeleton. A left femoral nail is seen. IMPRESSION: 1. Multifocal lesions concerning for metastatic disease noted in the liver, spleen, possibly right adrenal gland, and skeleton. No acute abnormalities to explain fever and nausea. In particular the appendix is normal and there is no evidence of bowel obstruction. 2. Right pleural effusion is nonspecific but malignant effusion cannot be excluded. 3. Additional findings as above. ACT 112: Negative or not required by law. Electronically signed by: Antwon Greenberg M.D. 09/27/2023 4:17 PM Discharge Plan Visit Data Chief Complaint: Nausea Stated Complaint: WEAKNESS ED Provider: Farhat Griffin Discharge Problem: Weakness, Leukocytosis, Fever, Malignancy, Pleural effusion Patient Disposition: Admitted As Inpatient Condition: Fair Forms Stand Alone Forms: [facility], Important Visit Information Prescriptions Prescriptions: No Action atorvastatin 20 mg Tablet 20 mg PO QAM metoprolol succinate 50 mg Tablet Extended Release 24 Hr 50 mg PO QAM amlodipine 10 mg Tablet 10 mg PO QAM albuterol sulfate 90 mcg/actuation Hfa Aerosol Inhaler 2 puff INHALATION QID PRN (Reason: SOB) colchicine 0.6 mg Tablet 0.6 mg PO BID PRN (Reason: GOUT) tizanidine 4 mg Capsule 4 mg PO TID PRN (Reason: MUSCLE SPASMS) ondansetron HCl 8 mg tablet 8 mg PO Q8H PRN (Reason: Nausea) prochlorperazine maleate 10 mg tablet 10 mg PO Q6H PRN (Reason: Nausea) fluticasone propionate 50 mcg/actuation [place],Suspension 2 spray INTRANASAL HS Eliquis 5 mg tablet 5 mg PO BID famotidine [Pepcid] 20 mg Tablet 20 mg PO BID PRN (Reason: Heartburn) amoxicillin 500 mg Capsule 2,000 mg PO DIRECTED PRN (Reason: 1 HR PRIOR TO DENTAL PROCEDURES) fexofenadine [Ashley] 180 mg Tablet 180 mg PO DAILY PRN (Reason: ALLERGY SYPMTOMS) meclizine 25 mg Tablet 25 mg PO TID PRN (Reason: Dizziness) potassium citrate 10 mEq (1,080 mg) tablet extended release 10 meq PO BID lisinopril 40 mg tablet 40 mg PO QAM hydrochlorothiazide 12.5 mg tablet 12.5 mg PO QAM cholecalciferol (vitamin D3) [Vitamin D3] 50 mcg (2,000 unit) Capsule 2,000 unit PO DAILY magnesium oxide 400 mg magnesium Tablet 400 mg PO DAILY Referrals Referrals: Hank Ivey DO [Primary Care Provider] - Discharge Problem: Leukocytosis Qualifiers: Leukocytosis type: unspecified Qualified Code(s): D72.829 - Elevated white blood cell count, unspecified Fever Qualifiers: Fever type: unspecified Qualified Code(s): R50.9 - Fever, unspecified
[2023-09-27 13:48] LABS: Basophils # (auto) 0.08 K/uL (0.00-0.20); Basophils % (auto) 0.4 %; Eosinophils # (auto) 0.23 K/uL (0.00-0.50); Eosinophils % (auto) 1.1 %; Hematocrit (blood only) 41.2 % (37.0-47.0); Immature Granulocytes % (auto) 0.5 %; Lymphocytes # (auto) 1.32 K/uL (1.20-3.40); Mean Corpuscular Hemoglobin 29.4 pg (25.0-34.0); Mean Corpuscular Volume 86.6 fL (80.0-100.0); Mean Platelet Volume 10.3 fL (9.4-12.4); Monocytes # (auto) 1.79 K/uL (0.11-0.59); Monocytes % (auto) 8.2 %; Neutrophils # (auto) 18.35 K/uL (1.40-6.50); Neutrophils % (auto) 83.8 %; Platelet Count 274 K/uL (130-400); RDW Standard Deviation 44.5 fL (36.4-46.3); Red Blood Count 4.76 M/uL (4.20-5.40); White Blood Count 21.87 K/ul (4.8-10.8)
[2023-09-27 13:52] LABS: Alanine Aminotransferase 40 U/L (7-52); Albumin Level 4.2 gm/dl (3.4-5.0); Alkaline Phosphatase 302 U/L (34-104); Anion Gap 11 (3-11); Aspartate Aminotransferase 81 U/L (13-39); BUN Creatinine Ratio 21.4 (10-20); Bilirubin,Total 1.1 mg/dl (0.2-1.0); Blood Urea Nitrogen 22 mg/dl (6-23); Calcium 9.2 mg/dl (8.6-10.3); Carbon Dioxide 24 mmol/L (21-32); Chloride 102 mmol/L (98-107); Est GFR (African American) 58.6 ml/min; Est GFR (Non-African American) 50.6 ml/min; Globulin 2.1 gm/dl (2.5-4.0); Glucose 111 mg/dl (70-99(Fasting)); Magnesium 1.8 mg/dl (1.7-2.4); Potassium 3.3 mmol/L (3.5-5.1); Sodium 137 mmol/L (136-145); Total Protein 6.3 gm/dl (6.0-8.3)
[2023-09-27 13:59] LABS: Troponin I High Sensitivity 7.5 pg/ml (0-14)
[2023-09-27 14:08] LABS: Thyroid Stimulating Hormone 1.153 uIu/ml (0.300-4.500)
[2023-09-27 14:50] LABS: Adenovirus PCR Not Detected (NotDetected); Bordetella parapertussis PCR Not Detected (NotDetected); Bordetella pertussis PCR Not Detected (NotDetected); Chlamydia pneumoniae PCR Not Detected (NotDetected); Coronavirus 229E PCR Not Detected (NotDetected); Coronavirus CoV-2 (COVID19)PCR Not Detected (NotDetected); Coronavirus HKU1 PCR Not Detected (NotDetected); Coronavirus NL63 PCR Not Detected (NotDetected); Coronavirus OC43PCR Not Detected (NotDetected); Human Metapneumovirus PCR Not Detected (NotDetected); Influenza A PCR Not Detected (NotDetected); Influenza B PCR Not Detected (NotDetected); Mycoplasma pneumoniae PCR Not Detected (NotDetected); Parainfluenza Virus 1 PCR Not Detected (NotDetected); Parainfluenza Virus 2 PCR Not Detected (NotDetected); Parainfluenza Virus 3 PCR Not Detected (NotDetected); Parainfluenza Virus 4 PCR Not Detected (NotDetected); Respiratory Syncytial VirusPCR Not Detected (NotDetected); Rhinovirus/Enterovirus PCR Not Detected (NotDetected)
[2023-09-27] MEDS: CEFEPIME 2,000 MG/20 ML VIAL IV STA (15:04)
--- NOTE | 2023-09-27 15:07 | XRay Report ---
XR chest 1V portable CLINICAL HISTORY: weakness TECHNIQUE: Single frontal radiograph of the chest was obtained. Comparison: Comparison is made to chest radiograph 01/01/2022 FINDINGS: A port catheter is seen. Cardiomegaly is noted. The lungs are clear. Small right pleural effusion is seen. IMPRESSION: Small right pleural effusion is seen. Underlying airspace opacity likely represents atelectasis with or without pneumonia/aspiration. ACT 112: Negative or not required by law. Electronically signed by: Antwon Greenberg M.D. 09/27/2023 3:06 PM
[2023-09-27] MEDS: ACETAMINOPHEN 1,000 MG/100 ML VIAL IV STA (15:16)
[2023-09-27 15:19] LABS: Appearance Urine Clear (Clear); Bacteria Urine Automated None Seen (None Seen); Bilirubin Urine Negative (Negative); Blood Urine 1+ (Negative); Cast Urine Automated 0-2 /lpf (0-2); Color Urine Yellow; Epithelial Cell Urine Auto 0-2 /hpf (0-2); Glucose Urine UA Negative (Negative); Ketones Urine Negative (Negative); Leukocyte Esterase Urine 2+ (Negative); Nitrite Urine Negative (Negative); Protein Urine Trace (Negative); Specific Gravity Urine 1.006 (1.000-1.030); Urobilinogen Urine Negative (Negative); pH Urine 7.5 (4.5-7.5)
[2023-09-27] MEDS: OPTIRAY 320 100ml IV ONE (15:54)
--- NOTE | 2023-09-27 16:19 | CT Scan Report ---
CT abd pelvis IV con only CLINICAL HISTORY: fever, recent liver biopsy TECHNIQUE: Helical axial images of the abdomen and pelvis were obtained and displayed. Automated dose lowering techniques and/or adjustment according to patient size were utilized for this exam. This e xam was performed with intravenous contrast. CT DOSE: 1176.11 mGy.cm COMPARISON: Comparison is made to CT abdomen pelvis 08/26/2015 FINDINGS: Lower chest: There is a small right pleural effusion with associated atelectasis. Cardiomegaly is se en. Liver: Innumerable, relatively hypoenhancing hepatic lesions are seen. Gallbladder and biliary tree: Cholelithiasis is seen without evidence of cholecystitis. No intra- or extrahepatic biliary ductal dilation. Pancreas: Fatty replacement of the pancreas is seen. Spleen: Mildly hypoenhancing splenic lesions are also seen. Adrenals: There is a right adrenal nodule measuring 14 mm in diameter, new from prior exam. Nodular t hickening of the left adrenal gland is unchanged. Kidneys and ureters: Nonobstructive nephrolithiasis is seen. Bilateral renal cysts are seen. Bladder: Unremarkable. Reproductive organs: Patient is status post hysterectomy. Bowel: The appendix is normal. Lymph nodes Retroperitoneal: Unremarkable. Pelvic: Unremarkable. Mesenteric: Unremarkable. Peritoneum: Normal. Vessels: Unremarkable. Abdominal wall: Unremarkable. Bones: Degenerative changes in the visualized spine. Multiple sclerotic foci are seen in the skeleton . A left femoral nail is seen. IMPRESSION: 1. Multifocal lesions concerning for metastatic disease noted in the liver, spleen, possibly right a drenal gland, and skeleton. No acute abnormalities to explain fever and nausea. In particular the sg endix is normal and there is no evidence of bowel obstruction. 2. Right pleural effusion is nonspecific but malignant effusion cannot be excluded. 3. Additional findings as above. ACT 112: Negative or not required by law. Electronically signed by: Antwon Greenberg M.D. 09/27/2023 4:17 PM
--- NOTE | 2023-09-27 17:41 | History & Physical Report ---
Date of Service September 27, 2023 Assessment & Plan (1) Fever: Plan: Presented with fever since yesterday associated with leukocytosis but no sepsis otherwise Likely secondary to right lower lobe pneumonia with associated effusion could be malignant Blood cultures were taken She was started with intravenous cefepime and doxycycline to cover atypicals Will monitor CBC and BMP (2) Leukocytosis: (3) Pleural effusion: (4) Metastatic disease: Plan: History of multiple malignancies including lung cancer with recurrence and subsequent treatment Uterine cancer status post hysterectomy Left breast cancer status postlumpectomy She has metastatic disease in the liver and in the bone and under investigation with Dr. Linton Has had liver biopsy about 1 week back and is still waiting for the results Will notify Dr. Linton about the admission Ongoing nausea Since beginning of this year Denies any vomiting No significant weight loss Has electrolyte imbalance and we will supplement (5) HTN (hypertension): Plan: Continue current medications for the blood pressure Hold hydrochlorothiazide (6) NAYA on CPAP: Plan: Continue CPAP at night (7) Pulmonary emboli: Plan: Has been on Eliquis and will be continued DVT prophylaxis On Eliquis History of Present Illness Chief Complaint: Nausea, progressive weakness for the last few months, fever with chills since last evening Primary Care Provider: Hank Ivey DO She is an 82-year-old female with significant past medical history of recurrent malignancy of the lung, history of uterine cancer, history of breast cancer, hypertension, NAYA on CPAP, history of pulmonary emboli , osteoarthritis and recent diagnosis of multiple metastasis under investigation apparently has been complaining of nausea and progressive weakness since beginning of the year. She was seen by her oncologist last Thursday and she has been waiting the results of the liver biopsy which was done about 1 week ago. She developed fever last evening with chills and the weakness got worse that she was in the ER today. Has cough without any phlegm and has minimal shortness of breath with exertion. Denies any chest pain, any palpitation, no abdominal pain but has nausea without vomiting. No anorexia and denies any significant weight loss. Noted to have high white count of 21,000 and chest x-ray did show possible right lower lobe infiltration with associated effusion. She started with intravenous cefepime and was admitted to medical telemetry unit for continuation of care. Allergies Allergy/AdvReac Type Severity Reaction Status Date / Time castor oil Allergy Severe ANAPHYLAXIS Verified 09/27/23 16:45 paclitaxel Allergy Severe ANAPHYLAXIS Verified 09/27/23 16:45 ciprofloxacin Allergy Intermediate HIVES/RASH Verified 09/27/23 16:45 codeine AdvReac Intermediate GI SYMPTOMS Verified 09/27/23 16:45 cyproheptadine AdvReac Intermediate LETHARGY Verified 09/27/23 16:45 doxepin AdvReac Intermediate LETHARGY Verified 09/27/23 16:45 gabapentin AdvReac Intermediate GI Verified 09/27/23 16:45 SYMPTOMS/"FEEL OUT OF IT" hydrocodone AdvReac Intermediate GI SYMPTOMS Verified 09/27/23 16:45 meloxicam AdvReac Intermediate DIZZINESS, Verified 09/27/23 16:45 HEADACHE, NAUSEA oxycodone AdvReac Intermediate GI SYMPTOMS Verified 09/27/23 16:45 prednisone AdvReac Intermediate ELEVATED Verified 09/27/23 16:46 GLUCOSE tramadol AdvReac Intermediate GI SYMPTOMS Verified 09/27/23 16:46 Home Medications Medication Instructions Recorded Confirmed Type albuterol sulfate 90 mcg/actuation 2 puff inhalation QID PRN SOB 06/23/18 09/27/23 History aerosol inhaler amlodipine 10 mg tablet 10 mg PO QAM 06/23/18 09/27/23 History atorvastatin 20 mg tablet 20 mg PO QAM 06/23/18 09/27/23 History colchicine 0.6 mg tablet 0.6 mg PO BID PRN GOUT 06/23/18 09/27/23 History metoprolol succinate 50 mg 50 mg PO QAM 06/23/18 09/27/23 History tablet,extended release 24 hr tizanidine 4 mg capsule 4 mg PO TID PRN MUSCLE SPASMS 06/23/18 09/27/23 History fluticasone propionate 50 2 spray intranasal HS Congestion 12/19/19 09/27/23 History mcg/actuation nasal spray,suspension ondansetron HCl 8 mg tablet 8 mg PO Q8H PRN Nausea 12/19/19 09/27/23 History prochlorperazine maleate 10 mg 10 mg PO Q6H PRN Nausea 12/19/19 09/27/23 History tablet apixaban 5 mg tablet (Eliquis) 5 mg PO BID 12/30/21 09/27/23 History famotidine 20 mg tablet (Pepcid) 20 mg PO BID PRN Heartburn 12/30/21 09/27/23 H istory amoxicillin 500 mg capsule 2,000 mg PO DIRECTED PRN 1 HR 09/27/23 09/27/23 History PRIOR TO DENTAL PROCEDURES cholecalciferol (vitamin D3) 50 2,000 unit PO DAILY 09/27/23 09/27/23 History mcg (2,000 unit) capsule (Vitamin D3) fexofenadine 180 mg tablet 180 mg PO DAILY PRN ALLERGY 09/27/23 09/27/23 History SYPMTOMS hydrochlorothiazide 12.5 mg tablet 12.5 mg PO QAM 09/27/23 09/27/23 History lisinopril 40 mg tablet 40 mg PO QAM 09/27/23 09/27/23 History magnesium oxide 400 mg PO DAILY 09/27/23 09/27/23 History meclizine 25 mg tablet 25 mg PO TID PRN Dizziness 09/27/23 09/27/23 History potassium citrate 10 mEq (1,080 10 meq PO BID 09/27/23 09/27/23 History mg) tablet,extended release Past Med/Surg History Problem List Metastatic disease Pleural effusion (Acute) Malignancy (Acute) Fever (Acute) Leukocytosis (Acute) Weakness (Acute) De Quervain's tenosynovitis Stress fracture Thigh pain Status post reverse total replacement of left shoulder (~03/2022) HTN (hypertension) (Chronic) Kidney calculi (Chronic) Uterine cancer (Chronic) CTS (carpal tunnel syndrome) (Chronic) NAYA on CPAP (Chronic) Age related osteoporosis (Chronic) H/O mastectomy (Chronic) H/O: hysterectomy (Chronic) H/O tubal ligation (Chronic) Hx of tonsillectomy (Chronic) H/O knee surgery (Chronic) H/O dilation and curettage (Chronic) H/O eye surgery (Chronic) Cellulitis (Acute) Hypertensive urgency Hypokalemia (Acute) Hypomagnesemia Neutropenic fever Encounter for pre-operative examination Bronchogenic cancer of left lung Chronic bronchitis Cervical spondylosis Asymptomatic hypertensive urgency Stress fracture of left femur Acute leg pain (Acute) Difficulty walking (Acute) Pressure ulcer of sacrum (Acute) DJD (degenerative joint disease) of cervical spine Stage II pressure ulcer (Acute) Pulmonary emboli (Acute) Acute hypokalemia (Acute) Dehydration (Acute) 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 Medical History History of Clostridioides difficile infection After abx, s/p vanco completed 12/31- diarrhea resolved per PAT visit 01/01 Pulmonary embolism 2020, reason for Eliquis; f/u dr morgan, s once/year Sleep apnea Remote hx- no device currently ("lost device") History of bronchitis Reason for inhaler PRN, no recent issues Osteoporosis History of skin cancer Nose and left leg (s/p excision) History of breast cancer s/p chemo, left mastectomy; limb restriction lt arm History of lung cancer s/p RUL wedge resection NSCLC - on Osimertinib (Tagrisso) per heme/onc History of uterine cancer s/p Hysterectomy History of kidney stones Kidney disease Stage III Acid reflux Anxiety Gout Hx Hypertension Surgical History Hx of myringotomy Hx of cataract extraction History of open reduction and internal fixation (ORIF) procedure Status post reverse arthroplasty of shoulder History of surgery History of colonoscopy History of tonsillectomy and adenoidectomy History of total right knee replacement History of left mastectomy History of lung surgery History of hysterectomy Family History Mother History of breast cancer History of ovarian cancer Grandmother History of colon cancer Social History Smoking Status: Never smoker Second Hand Exposure: Yes ( used to smoke); Do You Dip or Chew Tobacco: No; Hx Alcohol Use: Yes Alcohol type: wine Hx Substance Use: No Preferred Language: Sami Communication Ability: Effective Prepress Operator Required: No Beliefs That Will Affect Care: None marital status: Current Living Situation: Spouse Current Living Situation Comment: lives in house Feels Safe at Home: Yes Assistive Devices: None Review of Systems Review of Systems: All systems reviewed & are unremarkable except as noted in HPI & below Physical Exam Physical Exam: Lying in bed comfortably. Looks depressed and anxious but no distress Constitutional: well developed, well nourished, + ill appearing and + obese Eyes: PERRL, conjunctivae normal, anicteric sclerae ENMT: external ear and nose normal, oropharynx normal Neck: trachea midline, no thyromegaly Respiratory: no respiratory distress Auscultation: + diminished lung sounds and + crackles (Right basilar crackles) Cardiovascular: Rate/Rhythm: regular rate and regular rhythm; not tachycardic Heart Sounds: normal S1 and normal S2; no murmur Extremities: no edema Gastrointestinal (Abdomen): Inspection/Auscultation: normal bowel sounds; abdomen not distended Percussion/Palpation: abdomen soft; abdomen nontender Musculoskeletal: No acute arthritis involving any of the joints Neurologic: normal touch/pain/proprioception and moves all extremities; no focal motor deficits Psychiatric: A+Ox3, euthymic affect Lymphatic: no cervical or axillary lymphadenopathy Results & Data Results & Data Vital Signs (Past 12 Hours) Vital Signs Temp Pulse Pulse Resp BP BP Pulse Ox 09/27/23 17:22 79 09/27/23 15:46 89 L 09/27/23 15:21 89 18 176/76 H 92 09/27/23 13:22 93 H 09/27/23 12:55 37.2 C 87 20 142/81 H 94 O2 Del Method O2 Flow Rate 09/27/23 17:22 09/27/23 15:46 Nasal Cannula 0 09/27/23 15:21 Room Air 09/27/23 13:22 09/27/23 12:55 Room Air Laboratory Results Short CBC 09/27/23 Range/Units 13:16 WBC 21.87 H (4.8-10.8) K/ul Hgb 14.0 (12.0-16.0) g/dl Hct 41.2 (37.0-47.0) % Plt Count 274 (130-400) K/uL BMP 09/27/23 13:16 Sodium 137 Potassium 3.3 L Chloride 102 Carbon Dioxide 24 BUN 22 Creatinine 1.03 Glucose 111 H Calcium 9.2 Liver Function 09/27/23 Range/Units 13:16 Total Bilirubin 1.1 H (0.2-1.0) mg/dl AST 81 H (13-39) U/L ALT 40 (7-52) U/L Alkaline Phosphatase 302 H (34-104) U/L Albumin 4.2 (3.4-5.0) gm/dl Urine 09/27/23 Range/Units 15:06 Urine Color Yellow Urine Appearance Clear (Clear) Urine pH 7.5 (4.5-7.5) Ur Specific [place] 1.006 (1.000-1.030) Urine Protein Trace H (Negative) Urine Glucose (UA) Negative (Negative) Medications Administered Current Inpatient Medications Potassium Chloride/Sodium Chloride (Normal Saline W/20 Meq Kcl) 20 meq in 1,000 mls @ 100 mls/hr IV .Q10H [facility]; Protocol Stop: 09/28/23 23:29 Cefepime HCl 2,000 mg/ Syringe 20 mls @ 5 mls/min IV Q12H [facility]; Protocol Stop: 10/04/23 17:29 Doxycycline Hyclate 100 mg/ (Dextrose) 100 mls @ 50 mls/hr IV Q12H [facility] Stop: 10/04/23 17:29 Ondansetron HCl (Ondansetron Inj 2 Mg/Ml 2 Ml Vial) 4 mg IV Q6H PRN PRN Reason: Nausea And Vomiting Stop: 10/27/23 17:26 Code Status & VTE Plan VTE Prophylaxis Plan VTE Prophylaxis will be ordered: Yes (1) Fever Fever type: unspecified Qualified Code(s): R50.9 - Fever, unspecified (2) Leukocytosis Leukocytosis type: unspecified Qualified Code(s): D72.829 - Elevated white blood cell count, unspecified (7) Pulmonary emboli Acute cor pulmonale presence: unspecified Chronicity: acute Pulmonary embolism type: unspecified Qualified Code(s): I26.99 - Other pulmonary embolism without acute cor pulmonale
[2023-09-27] MEDS: NSS + 20MEQ KCL 20 MEQ/1,000 ML BAG IV SCH (18:46)
[2023-09-27] MEDS: DOXYCYCLINE HYCLATE 100 MG in DEXTROSE 5% MINI-B 100 ML IV ONE (19:35)
[2023-09-27] MEDS ORDERED: COLCHICINE 0.6 MG TAB PO PRN (21:04)
[2023-09-27] MEDS ORDERED: ALBUTEROL HFA 8 GM INHALER INH PRN (21:04)
[2023-09-27] MEDS: APIXABAN 5 MG TABLET PO SCH (22:35)
[2023-09-27] MEDS: FLUTICASONE PROPIONATE NA SPR 16 GM BTL SCH (22:35)
--- NOTE | 2023-09-27 22:44 | Electrocardiogram Report ---
Test Reason : Blood Pressure : / mmHG Vent. Rate : 085 BPM Atrial Rate : 085 BPM P-R Int : 128 ms QRS Dur : 086 ms QT Int : 378 ms P-R-T Axes : 042 -14 047 degrees QTc Int : 449 ms Normal sinus rhythm Normal ECG When compared with ECG of 01-JAN-2022 13:29, Questionable change in QRS axis Confirmed by Gerson Olmedo ([id number]) on 09/27/2023 10:43:48 PM Referred By: REFERRED SELF Confirmed By:Gerson Olmedo
[2023-09-28] MEDS: CEFEPIME 2,000 MG in SYRINGE 0 ML IV SCH (02:00)
[2023-09-28] MEDS: ONDANSETRON INJ 2 MG/ML 2 ML VIAL IV PRN (02:00)
[2023-09-28] MEDS: ACETAMINOPHEN 325 MG TAB PO PRN (02:17)
[2023-09-28] MEDS ORDERED: CEFEPIME 2,000 MG in SYRINGE 0 ML IV SCH (03:00)
[2023-09-28 06:35] LABS: Basophils # (auto) 0.06 K/uL (0.00-0.20); Basophils % (auto) 0.3 %; Eosinophils # (auto) 0.11 K/uL (0.00-0.50); Eosinophils % (auto) 0.6 %; Hematocrit (blood only) 38.9 % (37.0-47.0); Hemoglobin 13.4 g/dl (12.0-16.0); Immature Granulocytes # (auto) 0.12 K/uL (0.01-0.20); Immature Granulocytes % (auto) 0.6 %; Lymphocytes # (auto) 1.64 K/uL (1.20-3.40); Lymphocytes % (auto) 8.6 %; Mean Corpuscular Hemoglobin 30.4 pg (25.0-34.0); Mean Corpuscular Hgb Conc 34.4 g/dL (32.0-36.0); Mean Corpuscular Volume 88.2 fL (80.0-100.0); Mean Platelet Volume 10.4 fL (9.4-12.4); Monocytes # (auto) 2.02 K/uL (0.11-0.59); Monocytes % (auto) 10.5 %; Neutrophils % (auto) 79.4 %; Platelet Count 216 K/uL (130-400); RDW Coefficient of Variation 14.2 % (11.5-14.5); RDW Standard Deviation 45.8 fL (36.4-46.3); Red Blood Count 4.41 M/uL (4.20-5.40); White Blood Count 19.15 K/ul (4.8-10.8)
[2023-09-28 06:51] LABS: Albumin Globulin Ratio 1.7 (0.9-2); Albumin Level 3.5 gm/dl (3.4-5.0); BUN Creatinine Ratio 17.5 (10-20); Bilirubin,Total 1.3 mg/dl (0.2-1.0); Calcium 7.8 mg/dl (8.6-10.3); Creatinine Clr Calc Pharmacy 57.8 ml/min; Est GFR (African American) 79.6 ml/min; Est GFR (Non-African American) 68.7 ml/min; Globulin 2.1 gm/dl (2.5-4.0); Magnesium 1.7 mg/dl (1.7-2.4); Phosphorus 2.7 mg/dl (2.5-4.9); Potassium 3.4 mmol/L (3.5-5.1); Total Protein 5.6 gm/dl (6.0-8.3)
[2023-09-28] MEDS: POTASSIUM CHLORIDE CRTAB 20 MEQ TABCR PO STA (08:20)
[2023-09-28] MEDS: DOXYCYCLINE HYCLATE 100 MG in DEXTROSE 5% MINI-B 100 ML IV SCH (08:21)
[2023-09-28] MEDS: ATORVASTATIN 20 MG TAB PO SCH (08:21)
[2023-09-28] MEDS: METOPROLOL SUCC 50MG EXT REL TAB PO SCH (08:21)
[2023-09-28] MEDS: amLODIPine BESYLATE 5 MG TAB PO SCH (08:22)
[2023-09-28] MEDS: lisinopril 40 MG TAB PO SCH (08:22)
[2023-09-28] MEDS: MAGNESIUM OXIDE 400 MG TAB PO SCH (08:22)
[2023-09-28] MEDS: CHOLECALCIFEROL 25 MCG (1000 UNITS) TAB PO SCH (08:22)
--- NOTE | 2023-09-28 13:28 | Hospitalist Progress Note ---
Date of Service September 28, 2023 Assessment & Plan (1) Fever: Plan: Presented with fever since yesterday associated with leukocytosis but no sepsis otherwise Likely secondary to right lower lobe pneumonia with associated effusion could be malignant Blood cultures were taken She was started with intravenous cefepime and doxycycline to cover atypicals White count has improved to 19,000 Blood cultures are pending Will continue current antibiotic (2) Leukocytosis: Plan: Minimally down (3) Pleural effusion: Plan: Denies any increasing shortness of breath (4) Metastatic disease: Plan: History of multiple malignancies including lung cancer with recurrence and subsequent treatment Uterine cancer status post hysterectomy Left breast cancer status postlumpectomy She has metastatic disease in the liver and in the bone and under investigation with Dr. Linton Has had liver biopsy about 1 week back and is still waiting for the results Will notify Dr. Linton about the admission Will talk to Dr. Linton tomorrow Ongoing nausea Since beginning of this year Denies any vomiting No significant weight loss Has electrolyte imbalance and we will supplement Will add Phenergan on top of Zofran (5) HTN (hypertension): Plan: Continue current medications for the blood pressure Hold hydrochlorothiazide (6) NAYA on CPAP: Plan: Continue CPAP at night (7) Pulmonary emboli: Plan: Has been on Eliquis and will be continued DVT prophylaxis On Eliquis Admission and Anticipated Discharge Date Admission Date: September 27, 2023 Subjective 09/28/2023 The patient was seen and examined in medical telemetry unit in presence of the family member She has been nauseous but no vomiting Has been eating and drinking reasonably Remain generally weak and lethargic No fever and no chills Review of Systems Review of Systems: All systems reviewed and are unremarkable except as noted below Physical Exam Physical Exam: Lying in bed comfortably. Looks depressed and anxious but no distress Constitutional: well developed, well nourished, + ill appearing and + obese Eyes: PERRL, conjunctivae normal, anicteric sclerae ENMT: external ear and nose normal, oropharynx normal Neck: trachea midline, no thyromegaly Respiratory: no respiratory distress Auscultation: + diminished lung sounds and + crackles (Right basilar crackles) Cardiovascular: Rate/Rhythm: regular rate and regular rhythm; not tachycardic Heart Sounds: normal S1 and normal S2; no murmur Extremities: no edema Gastrointestinal (Abdomen): Inspection/Auscultation: normal bowel sounds; abdomen not distended Percussion/Palpation: abdomen soft; abdomen nontender Musculoskeletal: No acute arthritis involving any of the joint Neurologic: normal touch/pain/proprioception and moves all extremities; no focal motor deficits Psychiatric: A+Ox3, euthymic affect Lymphatic: no cervical or axillary lymphadenopathy Results & Data Results & Data Vital Signs (Past 12 Hours) Vital Signs Temp Pulse Pulse Pulse Resp BP Pulse Ox 09/28/23 11:18 37.2 C 64 18 163/81 H 95 09/28/23 08:20 09/28/23 07:40 37.1 C 101 H 18 187/82 H 93 09/28/23 07:00 90 09/28/23 03:40 37.0 C 83 18 154/83 H 95 O2 Del Method O2 Flow Rate 09/28/23 11:18 Room Air 09/28/23 08:20 Room Air 09/28/23 07:40 Nasal Cannula 1 09/28/23 07:00 09/28/23 03:40 Nasal Cannula 1 Laboratory Results Short CBC 09/27/23 09/28/23 Range/Units 13:16 05:49 WBC 21.87 H 19.15 H (4.8-10.8) K/ul Hgb 14.0 13.4 (12.0-16.0) g/dl Hct 41.2 38.9 (37.0-47.0) % Plt Count 274 216 (130-400) K/uL BMP 09/27/23 09/28/23 13:16 05:49 Sodium 137 140 Potassium 3.3 L 3.4 L Chloride 102 109 H Carbon Dioxide 24 24 BUN 22 14 Creatinine 1.03 0.80 Glucose 111 H 108 H Calcium 9.2 7.8 L Liver Function 09/27/23 09/28/23 Range/Units 13:16 05:49 Total Bilirubin 1.1 H 1.3 H (0.2-1.0) mg/dl AST 81 H 55 H (13-39) U/L ALT 40 30 (7-52) U/L Alkaline Phosphatase 302 H 246 H (34-104) U/L Albumin 4.2 3.5 (3.4-5.0) gm/dl Urine 09/27/23 Range/Units 15:06 Urine Color Yellow Urine Appearance Clear (Clear) Urine pH 7.5 (4.5-7.5) Ur Specific [place] 1.006 (1.000-1.030) Urine Protein Trace H (Negative) Urine Glucose (UA) Negative (Negative) Medications Administered Current Inpatient Medications Acetaminophen (Acetaminophen 325 Mg Tab) 650 mg PO Q6H PRN PRN Reason: Pain or Fever Stop: 10/28/23 02:07 Last Admin: 09/28/23 08:20 Dose: 650 mg Albuterol (Albuterol Hfa 8 Gm Inhaler) 2 puffs INH QID PRN PRN Reason: Shortness Of Breath Stop: 10/27/23 21:03 Amlodipine Besylate (Amlodipine Besylate 5 Mg Tab) 10 mg PO QAM [facility] Stop: 10/28/23 08:59 Last Admin: 09/28/23 08:22 Dose: 10 mg Apixaban (Apixaban 5 Mg Tablet) 5 mg PO BID [facility] Stop: 10/27/23 21:03 Last Admin: 09/28/23 08:21 Dose: 5 mg Atorvastatin Calcium (Atorvastatin 20 Mg Tab) 20 mg PO QAM [facility] Stop: 10/28/23 08:59 Last Admin: 09/28/23 08:21 Dose: 20 mg Colchicine (Colchicine 0.6 Mg Tab) 0.6 mg PO BID PRN PRN Reason: GOUT Stop: 10/27/23 21:03 Famotidine (Famotidine 20 Mg Tab) 20 mg PO BID PRN PRN Reason: Heartburn Stop: 10/27/23 21:03 Fexofenadine HCl (Fexofenadine Hcl 180 Mg Tab) 180 mg PO DAILY PRN PRN Reason: ALLERGY SYPMTOMS Stop: 10/27/23 21:03 Fluticasone Propionate (Fluticasone Propionate Na Spr 16 Gm Btl) 2 sprays NA HS [facility] Stop: 10/27/23 21:03 Last Admin: 09/27/23 22:35 Dose: 2 sprays Potassium Chloride/Sodium Chloride (Normal Saline W/20 Meq Kcl) 20 meq in 1,000 mls @ 100 mls/hr IV .Q10H [facility]; Protocol Stop: 09/28/23 23:29 Last Admin: 09/28/23 04:45 Dose: 100 mls/hr Cefepime HCl 2,000 mg/ Syringe 20 mls @ 5 mls/min IV Q12H [facility]; Protocol Stop: 10/05/23 02:59 Last Admin: 09/28/23 02:00 Dose: 5 mls/min Doxycycline Hyclate 100 mg/ (Dextrose) 100 mls @ 50 mls/hr IV Q12H [facility] Stop: 10/05/23 06:59 Last Infusion: 09/28/23 10:33 Dose: Infused Lisinopril (Lisinopril 40 Mg Tab) 40 mg PO QAM [facility] Stop: 10/28/23 08:59 Last Admin: 09/28/23 08:22 Dose: 40 mg Magnesium Oxide (Magnesium Oxide 400 Mg Tab) 400 mg PO DAILY [facility] Stop: 10/28/23 08:59 Last Admin: 09/28/23 08:22 Dose: 400 mg Metoprolol Succinate (Metoprolol Succ 50mg Ext Rel Tab) 50 mg PO QAM [facility] Stop: 10/28/23 08:59 Last Admin: 09/28/23 08:21 Dose: 50 mg Ondansetron HCl (Ondansetron Inj 2 Mg/Ml 2 Ml Vial) 4 mg IV Q6H PRN PRN Reason: Nausea And Vomiting Stop: 10/27/23 17:26 Last Admin: 09/28/23 02:00 Dose: 4 mg Tizanidine HCl (Tizanidine Hcl 4 Mg Tablet) 4 mg PO TID PRN PRN Reason: MUSCLE SPASMS Stop: 10/27/23 21:03 Vitamin D (Cholecalciferol 25 Mcg (1000 Units) Tab) 50 mcg PO DAILY [facility] Stop: 10/28/23 08:59 Last Admin: 09/28/23 08:22 Dose: 50 mcg (1) Fever Fever type: unspecified Qualified Code(s): R50.9 - Fever, unspecified (2) Leukocytosis Leukocytosis type: unspecified Qualified Code(s): D72.829 - Elevated white blood cell count, unspecified (7) Pulmonary emboli Acute cor pulmonale presence: unspecified Chronicity: acute Pulmonary embolism type: unspecified Qualified Code(s): I26.99 - Other pulmonary embolism without acute cor pulmonale
[2023-09-28] MEDS: POTASSIUM CHLORIDE / WTR 10 MEQ/100 ML PLCT IV SCH (14:21)
[2023-09-28] MEDS: METOPROLOL TARTRATE 1 MG/ML VIAL IV ONE (22:45)
[2023-09-28] MEDS: METOPROLOL TARTRATE 1 MG/ML VIAL IV PRN (23:07)
[2023-09-28 23:31] LABS: BUN Creatinine Ratio 16.5 (10-20); Calcium 8.4 mg/dl (8.6-10.3); Creatinine Clr Calc Pharmacy 58.5 ml/min; Est GFR (African American) 80.8 ml/min; Est GFR (Non-African American) 69.7 ml/min; Magnesium 1.7 mg/dl (1.7-2.4); Potassium 3.9 mmol/L (3.5-5.1)
[2023-09-28] MEDS: dilTIAZem HCl 5 MG/ML 5 ML VIAL IV STA (23:45)
[2023-09-29] MEDS: METOPROLOL TARTRATE 25 MG TAB PO SCH (00:45)
[2023-09-29] MEDS: MAGNESIUM SULFATE / D5W 1 GM/100 ML BAG IV SCH (01:03)
[2023-09-29] MEDS: tiZANidine HCL 4 MG TABLET PO PRN (03:17)
[2023-09-29 07:39] LABS: Basophils # (auto) 0.08 K/uL (0.00-0.20); Basophils % (auto) 0.4 %; Eosinophils # (auto) 0.38 K/uL (0.00-0.50); Eosinophils % (auto) 1.7 %; Hematocrit (blood only) 38.3 % (37.0-47.0); Hemoglobin 12.9 g/dl (12.0-16.0); Immature Granulocytes # (auto) 0.18 K/uL (0.01-0.20); Immature Granulocytes % (auto) 0.8 %; Lymphocytes # (auto) 2.28 K/uL (1.20-3.40); Lymphocytes % (auto) 10.5 %; Mean Corpuscular Hemoglobin 29.5 pg (25.0-34.0); Mean Corpuscular Hgb Conc 33.7 g/dL (32.0-36.0); Mean Corpuscular Volume 87.6 fL (80.0-100.0); Mean Platelet Volume 10.5 fL (9.4-12.4); Monocytes # (auto) 2.05 K/uL (0.11-0.59); Monocytes % (auto) 9.4 %; Neutrophils # (auto) 16.84 K/uL (1.40-6.50); Neutrophils % (auto) 77.2 %; Platelet Count 225 K/uL (130-400); RDW Coefficient of Variation 14.4 % (11.5-14.5); RDW Standard Deviation 46.4 fL (36.4-46.3); Red Blood Count 4.37 M/uL (4.20-5.40); White Blood Count 21.81 K/ul (4.8-10.8)
[2023-09-29 07:56] LABS: BUN Creatinine Ratio 15.9 (10-20); Creatinine Clr Calc Pharmacy 56.2 ml/min; Est GFR (African American) 77.2 ml/min; Est GFR (Non-African American) 66.6 ml/min; Magnesium 2.3 mg/dl (1.7-2.4); Potassium 3.9 mmol/L (3.5-5.1)
--- NOTE | 2023-09-29 08:05 | Electrocardiogram Report ---
Test Reason : Blood Pressure : / mmHG Vent. Rate : 082 BPM Atrial Rate : 082 BPM P-R Int : 150 ms QRS Dur : 084 ms QT Int : 392 ms P-R-T Axes : 031 018 038 degrees QTc Int : 457 ms Normal sinus rhythm Poor R wave progression, consider anterior KS vs. lead placement vs. LVH Abnormal ECG When compared with ECG of 27-SEP-2023 13:04, PRWP now present Confirmed by Holger Fierro ([id number]) on 09/29/2023 8:05:41 AM Referred By: REFERRED SELF Confirmed By:Holger Fierro
--- NOTE | 2023-09-29 08:37 | XRay Report ---
XR chest 1V portable CLINICAL HISTORY: congestion? COMPARISON STUDY: Chest CT February 27, 2021. Chest radiograph 09/27/2023. FINDINGS: Right subclavian [id number] and bilateral shoulder arthroplasties are incidentally noted . Cardiomegaly is unchanged. Pulmonary vascular congestion persists. A moderate right pleural effusio n is unchanged. There is no pneumothorax. . There are postoperative findings within the right hemitho rax. IMPRESSION: 1. Cardiomegaly with pulmonary vascular congestion. 2. Moderate right pleural effusion. No pneumothorax. ACT 112: Negative or not required by law. Electronically signed by: Tam Ferrari M.D. 09/29/2023 8:35 AM
--- NOTE | 2023-09-29 09:02 | Cardiology Consultation ---
Date of Consultation September 29, 2023 Assessment & Plan (1) Paroxysmal atrial fibrillation: (2) Metastatic disease: (3) HTN (hypertension): (4) Pleural effusion: Plan Patient admitted for febrile illness, source unknown. Blood cultures negative x2 (prelim) Possible pneumonia with right pleural effusion Started on gisela spectrum antibiotics. History of multiple forms of CA - breast, uterine, lung adenocarcinoma. Recent METS to liver, spleen, bone. Liver biopsy results from last week pending. Would consider palliative care consult. During admission she had run of afib RVR. Converting to NSR with metoprolol Added metoprolol tartrate 25 mg q 6 hours (in place of metoprolol succinate 50 mg). Metoprolol was held this morning due to low BP. She then had recurrent bout of afib. Will resume metoprolol succinate 50 mg a.m., 25 mg p.o. Do not hold metoprolol for low BP. Would reduce/hold amlodipine or other antihypertensive if needed. If she has break through arrhythmias, consider amiodarone. Patient already anticoagulated with Eliquis due to history of DVT/PE. Continue anticoagulation. Echo revealed preserved EF, no significant valvular disease. Case discussed with Dr. Esparza. No further cardiac testing warranted at this time. Will sign off. Please notify network liaison cardiology provider with additional questions or concerns. I spent a total of 60 minutes on the date of service in preparation, delivery, and documentation of the care provided to this patient, excluding any time spent in the performance of separately billed services. Trish Telles PA-C Department of Cardiology, [facility] This chart was completed in part utilizing Speech Voice Recognition Software. Grammatical errors, random word insertions, pronoun errors, and incomplete sentences are an occasional consequence of this system due to software limitations, ambient noise, and hardware issues. Any formal questions or concerns about the content, text, or information contained within the body of this dictation should be directly addressed to the provider for clarification. Supervising Physician Co-Signing Physician Notes Patient was seen and personally examined. Full assessment and plan as outlined above. Care and management discussed and personally endorsed with advanced provider 82-year-old female presented for noncardiac concerns but lapsed into atrial fibrillation during management. Now back in sinus rhythm with short paroxysmal episode of atrial fibrillation last evening. Recommendations as above. Patient chronically anticoagulated with Eliquis Would increase metoprolol succinate dosing to 50 mg a.m. 25 mg pm If relapse in atrial fibrillation persists would consider amiodarone though with contraindications given pulmonary disease and hepatic disease Contact with further question. I spent a total of 60 minutes on the date of service in preparation, delivery, and documentation of the care provided to this patient, excluding any time spent in the performance of separately billed services. History of Present Illness Reason for Consultation: Afib RVR Requesting Physician: Dr. Ruiz Attending Physician: Dr. Esparza History of Present Illness Patient is a 82 year old female, known to [facility] Cardiology, Dr. Morgan. History includes: 1. Hypertension 2. History of pulmonary emboli 3. Recurrent adenocarcinoma of the lung s/p pulm wedge resection surgery 4. history of Breast CA and uterine CA 5. metastatic disease to the liver and bone - following with oncology currently 6. dyslipidemia 7. Multifactorial dyspnea with recent echo in May 2023 - preserved LVEF, no significant valvular disease, no pulm hypertension. Negative nuclear lexiscan stress test Jun 2023 Admitted to [facility] after several days of febrile illness. Found to have possible right lower lobe pneumonia. Started on broad spectrum antibiotics. Right pleural effusion also noted, possibly malignant. Generalized weakness reported by the patient She had liver biopsy about 1 week ago and awaiting results. METS also noted to spleen and bones Last night patient developed afib RVR between 10:00 PM to 4:15 AM, rates ranging from 130-200 bmp. Metoprolol succinate changed to metoprolol tartrate. Magnesium supplemented. Converting to NSR at 4:14 AM. 6:00 AM dose of metoprolol tartrate was held. Around 8:57 patient had recurrent afib lasting about 5 minutes and converting spontaneously. she is on chronic anticoagulation with Eliquis Currently at time of consult, patient resting in bed. She was unaware of palpitations/tachypalpitations last night until they told her. She denied chest pain. Ongoing dyspnea reported, unchanged for several months. Mild orthopnea. No edema. Allergies Allergy/AdvReac Type Severity Reaction Status Date / Time castor oil Allergy Severe ANAPHYLAXIS Verified 09/27/23 16:45 paclitaxel Allergy Severe ANAPHYLAXIS Verified 09/27/23 16:45 ciprofloxacin Allergy Intermediate HIVES/RASH Verified 09/27/23 16:45 codeine AdvReac Intermediate GI SYMPTOMS Verified 09/27/23 16:45 cyproheptadine AdvReac Intermediate LETHARGY Verified 09/27/23 16:45 doxepin AdvReac Intermediate LETHARGY Verified 09/27/23 16:45 gabapentin AdvReac Intermediate GI Verified 09/27/23 16:45 SYMPTOMS/"FEEL OUT OF IT" hydrocodone AdvReac Intermediate GI SYMPTOMS Verified 09/27/23 16:45 meloxicam AdvReac Intermediate DIZZINESS, Verified 09/27/23 16:45 HEADACHE, NAUSEA oxycodone AdvReac Intermediate GI SYMPTOMS Verified 09/27/23 16:45 prednisone AdvReac Intermediate ELEVATED Verified 09/27/23 16:46 GLUCOSE tramadol AdvReac Intermediate GI SYMPTOMS Verified 09/27/23 16:46 Home Medications Medication Instructions Recorded Confirmed Type albuterol sulfate 90 mcg/actuation 2 puff inhalation QID PRN SOB 06/23/18 09/27/23 History aerosol inhaler amlodipine 10 mg tablet 10 mg PO QAM 06/23/18 09/27/23 History atorvastatin 20 mg tablet 20 mg PO QAM 06/23/18 09/27/23 History colchicine 0.6 mg tablet 0.6 mg PO BID PRN GOUT 06/23/18 09/27/23 History metoprolol succinate 50 mg 50 mg PO QAM 06/23/18 09/27/23 History tablet,extended release 24 hr tizanidine 4 mg capsule 4 mg PO TID PRN MUSCLE SPASMS 06/23/18 09/27/23 History fluticasone propionate 50 2 spray intranasal HS Congestion 12/19/19 09/27/23 History mcg/actuation nasal spray,suspension ondansetron HCl 8 mg tablet 8 mg PO Q8H PRN Nausea 12/19/19 09/27/23 History prochlorperazine maleate 10 mg 10 mg PO Q6H PRN Nausea 12/19/19 09/27/23 History tablet apixaban 5 mg tablet (Eliquis) 5 mg PO BID 12/30/21 09/27/23 History famotidine 20 mg tablet (Pepcid) 20 mg PO BID PRN Heartburn 12/30/21 09/27/23 History amoxicillin 500 mg capsule 2,000 mg PO DIRECTED PRN 1 HR 09/27/23 09/27/23 History PRIOR TO DENTAL PROCEDURES cholecalciferol (vitamin D3) 50 2,000 unit PO DAILY 09/27/23 09/27/23 History mcg (2,000 unit) capsule (Vitamin D3) fexofenadine 180 mg tablet 180 mg PO DAILY PRN ALLERGY 09/27/23 09/27/23 History SYPMTOMS hydrochlorothiazide 12.5 mg tablet 12.5 mg PO QAM 09/27/23 09/27/23 History lisinopril 40 mg tablet 40 mg PO QAM 09/27/23 09/27/23 History magnesium oxide 400 mg PO DAILY 09/27/23 09/27/23 History meclizine 25 mg tablet 25 mg PO TID PRN Dizziness 09/27/23 09/27/23 History potassium citrate 10 mEq (1,080 10 meq PO BID 09/27/23 09/27/23 History mg) tablet,extended release Patient History Medical History History of Clostridioides difficile infection After abx, s/p vanco completed 12/31- diarrhea resolved per PAT visit 01/01 Pulmonary embolism 2020, reason for Eliquis; f/u dr morgan, [facility] once/year Sleep apnea Remote hx- no device currently ("lost device") History of bronchitis Reason for inhaler PRN, no recent issues Osteoporosis History of skin cancer Nose and left leg (s/p excision) History of breast cancer s/p chemo, left mastectomy; limb restriction lt arm History of lung cancer s/p RUL wedge resection NSCLC - on Osimertinib (Tagrisso) per heme/onc History of uterine cancer s/p Hysterectomy History of kidney stones Kidney disease Stage III Acid reflux Anxiety Gout Hx Hypertension Surgical History Hx of myringotomy Hx of cataract extraction History of open reduction and internal fixation (ORIF) procedure Status post reverse arthroplasty of shoulder History of surgery History of colonoscopy History of tonsillectomy and adenoidectomy History of total right knee replacement History of left mastectomy History of lung surgery History of hysterectomy Family History Mother History of breast cancer History of ovarian cancer Grandmother History of colon cancer Social History Smoking Status: Never smoker Second Hand Exposure: Yes ( used to smoke); Do You Dip or Chew Tobacco: No; Hx Alcohol Use: No Hx Substance Use: No Preferred Language: German Communication Ability: Effective 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: No Beliefs That Will Affect Care: None marital status: Current Living Situation: Alone Current Living Situation Comment: lives in house Other Information That Helps Us Care for You: No Feels Safe at Home: Yes Safety Concerns: Feels Safe At This Time Assistive Devices: Cane and Walker Review of Systems Review of Systems: All systems reviewed & are unremarkable except as noted in HPI & below Physical Exam Constitutional: WD/WN, vitals as above + ill appearing; no acute distress Neck: trachea midline, no thyromegaly Respiratory: no labored breathing Auscultation: + diminished lung sounds; no crackles and no rales Cardiovascular: Heart Sounds: normal S1, normal S2 and + murmur (I/ systolic murmur) Vessels: no JVD Extremities: no edema Gastrointestinal (Abdomen): normal bowel sounds, soft, nontender, no hepatosplenomegaly Neurologic: PERRL, EOMI, accommodation nl, no face palsy, no dysarthria Psychiatric: A+Ox3, euthymic affect Results & Data Vital Signs (Past 12 Hours) Vital Signs Temp Pulse Pulse Pulse Resp BP BP 09/29/23 08:04 36.8 C 63 22 111/58 L 09/29/23 07:28 65 09/29/23 05:33 59 L 97/67 L 09/29/23 04:42 58 L 09/29/23 04:14 60 09/29/23 02:38 37.2 C 121 H 26 H 133/84 09/29/23 00:45 130 H 144/78 H 09/29/23 00:13 140 H 09/28/23 23:45 139 H 121/83 09/28/23 23:22 140 H 141/94 H 09/28/23 23:08 09/28/23 23:07 154 H 145/94 H 09/28/23 23:00 156 H 09/28/23 23:00 148 H 145/94 H 09/28/23 22:57 37.0 C 158 H 25 H 145/94 H 09/28/23 22:45 175 H 134/93 09/28/23 22:30 154 H 18 134/93 Pulse Ox O2 Del Method 09/29/23 08:04 97 Room Air 09/29/23 07:28 09/29/23 05:33 09/29/23 04:42 09/29/23 04:14 09/29/23 02:38 96 Room Air 09/29/23 00:45 09/29/23 00:13 09/28/23 23:45 09/28/23 23:22 09/28/23 23:08 Room Air 09/28/23 23:07 09/28/23 23:00 09/28/23 23:00 09/28/23 22:57 92 Room Air 09/28/23 22:45 09/28/23 22:30 Laboratory Results Cardiac Enzymes 09/28/23 09/29/23 Range/Units 22:53 05:59 Troponin I High Sens 14.0 D 15.2 H (0-14) pg/ml CBC 09/29/23 Range/Units 07:09 WBC 21.81 H (4.8-10.8) K/ul RBC 4.37 (4.20-5.40) M/uL Hgb 12.9 (12.0-16.0) g/dl Hct 38.3 (37.0-47.0) % Plt Count 225 (130-400) K/uL Neut # (Auto) 16.84 H (1.40-6.50) K/uL Lymph # (Auto) 2.28 (1.20-3.40) K/uL [place] # (Auto) 2.05 H (0.11-0.59) K/uL Eos # (Auto) 0.38 (0.00-0.50) K/uL Baso # (Auto) 0.08 (0.00-0.20) K/uL Comprehensive Metabolic Panel 09/28/23 09/29/23 Range/Units 22:53 07:09 Sodium 139 138 (136-145) mmol/L Potassium 3.9 3.9 (3.5-5.1) mmol/L Chloride 110 H 109 H (98-107) mmol/L Carbon Dioxide 17 L 24 (21-32) mmol/L BUN 13 13 (6-23) mg/dl Creatinine 0.79 0.82 (0.6-1.2) mg/dl Glucose 120 H 106 H (70-99(Fasting)) mg/dl Calcium 8.4 L 8.0 L (8.6-10.3) mg/dl Intake and Output 09/28/23 09/29/23 09/29/23 22:59 06:59 14:59 Intake Total 300 / 2920 1200 / 2920 Balance 300 / 2918 1200 / 2918 Intake: IV 300 / 2560 1200 / 2560 Doxycycline Hyclate 100 mg In 100 / 200 Dextrose 5% Mini-B 100 ml @ 50 mls/hr IV Q12H [facility] Rx#:[id number] Magnesium Sulfate / D5w 1 gm In 200 / 200 100 ml @ 50 mls/hr IV Q2H [facility] Rx#:[id number] Nss + 20Meq KCl 20 meq In 1,000 1000 / 1960 ml @ 100 mls/hr IV .Q10H [facility] Rx#:[id number] Potassium Chloride / Wtr 10 meq 200 / 200 In 100 ml @ 100 mls/hr IV Q1H [facility] Rx#:[id number] Other: Weight 82.9 kg Weight Measurement Method Standing Scale Diagnostic Findings Telemetry reviewed: NSR upon admission, converting to afib RVR at around 10:00 PM on 09/27 and converting back to NSR on 09/28 at 4:15 AM. She had one recurrent episode of afib around 8:30 this morning, converting back to NSR after 5 minutes. EKG reviewed from 09/29/23: NSR Low voltage QRS No acute ischemic changes EKG reviewed from 09/27/23: NSR at 85 bmp, nonspecific T wave abnormality in lateral leads Chest xray today, 09/29/23: IMPRESSION: 1. Cardiomegaly with pulmonary vascular congestion. 2. Moderate right pleural effusion. No pneumothorax. Echocardiogram reviewed from today, 09/29/23: Normal LVEF at 55-60% Moderate concentric LVH LV wall motion is normal Grade I diastolic dysfunction aortic valve sclerosis moderate without significant aortic valvular stenosis LA size is normal Prior outside data: Echo reviewed from [facility] dated May 2023: Interpretation Summary The examination is adequate to evaluate the referral indication. The LV wall thickness is mildly increased (concentric). The left ventricular wall motion is normal. The qualitative LV ejection fraction is 60-64% (normal). The left ventricular diastolic function is mildly abnormal (grade I). There is mild mitral annular calcification. There is no evidence of pulmonary hypertension. Compared to the previous study dated 01/01/2021 there has been no significant interval change Nuclear Lexiscan stress test report reviewed from Jun 2023: Interpretation Summary Lexiscan myocardial perfusion imaging study is negative for scar or inducible ischemia. Fixed inferior wall defect likely secondary to soft tissue attenuation artifact. Hypertensive blood pressure response to Lexiscan infusion. Paroxysmal supraventricular tachycardia with heart rate of 176 beats per minute and associated ischemic ECG changes recorded. Gated SPECT images reveals normal myocardial thickening and wall motion. The LV ejection fraction is calculated at >70%. Medications Administered Current Inpatient Medications Acetaminophen (Acetaminophen 325 Mg Tab) 650 mg PO Q6H PRN PRN Reason: Pain or Fever Stop: 10/28/23 02:07 Last Admin: 09/28/23 23:33 Dose: 650 mg Albuterol (Albuterol Hfa 8 Gm Inhaler) 2 puffs INH QID PRN PRN Reason: Shortness Of Breath Stop: 10/27/23 21:03 Amlodipine Besylate (Amlodipine Besylate 5 Mg Tab) 10 mg PO QAM [facility] Stop: 10/28/23 08:59 Last Admin: 09/28/23 08:22 Dose: 10 mg Apixaban (Apixaban 5 Mg Tablet) 5 mg PO BID [facility] Stop: 10/27/23 21:03 Last Admin: 09/29/23 09:50 Dose: 5 mg Atorvastatin Calcium (Atorvastatin 20 Mg Tab) 20 mg PO QAM [facility] Stop: 10/28/23 08:59 Last Admin: 09/28/23 08:21 Dose: 20 mg Colchicine (Colchicine 0.6 Mg Tab) 0.6 mg PO BID PRN PRN Reason: GOUT Stop: 10/27/23 21:03 Famotidine (Famotidine 20 Mg Tab) 20 mg PO BID PRN PRN Reason: Heartburn Stop: 10/27/23 21:03 Fexofenadine HCl (Fexofenadine Hcl 180 Mg Tab) 180 mg PO DAILY PRN PRN Reason: ALLERGY SYPMTOMS Stop: 10/27/23 21:03 Fluticasone Propionate (Fluticasone Propionate Na Spr 16 Gm Btl) 2 sprays NA HS [facility] Stop: 10/27/23 21:03 Last Admin: 09/28/23 21:03 Dose: 2 sprays Cefepime HCl 2,000 mg/ Syringe 20 mls @ 5 mls/min IV Q12H [facility]; Protocol Stop: 10/05/23 02:59 Last Admin: 09/29/23 03:06 Dose: 5 mls/min Doxycycline Hyclate 100 mg/ (Dextrose) 100 mls @ 50 mls/hr IV Q12H [facility] Stop: 10/05/23 06:59 Last Admin: 09/29/23 09:45 Dose: 50 mls/hr Promethazine HCl 12.5 mg/ (Sodium Chloride) 50.5 mls @ 202 mls/hr IV Q6H PRN PRN Reason: Nausea And Vomiting Stop: 10/28/23 13:27 Lisinopril (L[facility]op[facility] 40 Mg Tab) [facility] Stop: 10/28/23 08:59 Last Admin: 09/28/23 08:22 Dose: 40 mg Magnesium Oxide (Magnesium Oxide 400 Mg Tab) 400 mg PO DAILY [facility] Stop: 10/28/23 08:59 Last Admin: 09/28/23 08:22 Dose: 400 mg Metoprolol Succinate (Metoprolol Succ 50mg Ext Rel Tab) 50 mg PO [facility] Stop: 10/28/23 08:59 Last Admin: 09/28/23 08:21 Dose: 50 mg Metoprolol Tartrate (Metoprolol Tartrate 1 Mg/Ml Vial) 5 mg IV Q6 PRN PRN Reason: HR > 120 Stop: 10/28/23 22:56 Last Admin: 09/28/23 23:07 Dose: 5 mg Metoprolol Tartrate (Metoprolol Tartrate 25 Mg Tab) 25 mg PO Q6 [facility] Stop: 10/28/23 23:44 Last Admin: 09/29/23 09:46 Dose: 25 mg Ondansetron HCl (Ondansetron Inj 2 Mg/Ml 2 Ml Vial) 4 mg IV Q6H PRN PRN Reason: Nausea And Vomiting Stop: 10/27/23 17:26 Last Admin: 09/28/23 23:07 Dose: 4 mg Tizanidine HCl (Tizanidine Hcl 4 Mg Tablet) 4 mg PO TID PRN PRN Reason: MUSCLE SPASMS Stop: 10/27/23 21:03 Last Admin: 09/29/23 03:17 Dose: 4 mg Vitamin D (Cholecalciferol 25 Mcg (1000 Units) Tab) 50 mcg PO DAILY [facility] Stop: 10/28/23 08:59 Last Admin: 09/28/23 08:22 Dose: 50 mcg
--- NOTE | 2023-09-29 12:57 | Electrocardiogram Report ---
Test Reason : Blood Pressure : / mmHG Vent. Rate : 160 BPM Atrial Rate : 178 BPM P-R Int : 000 ms QRS Dur : 082 ms QT Int : 282 ms P-R-T Axes : 000 027 233 degrees QTc Int : 460 ms Atrial fibrillation with rapid ventricular response Diffuse Nonspecific ST and T wave abnormality Abnormal ECG When compared with ECG of 27-SEP-2023 13:04, Atrial fibrillation has replaced Sinus rhythm Vent. rate has increased BY [address] and T wave abnormality now present Confirmed by Holger Fierro ([id number] on 09/29/2023 12:56:42 PM Referred By: REFERRED SELF Confirmed By:Holger Fierro
--- NOTE | 2023-09-29 14:17 | Hospitalist Progress Note ---
Date of Service September 29, 2023 Assessment & Plan (1) Fever: Plan: Presented with fever since yesterday associated with leukocytosis but no sepsis otherwise Likely secondary to right lower lobe pneumonia with associated effusion could be malignant Blood cultures were taken She was started with intravenous cefepime and doxycycline to cover atypicals White count has improved to 19,000 Blood cultures are pending Will continue current antibiotic No more fever and chills Has had episodes of SVT last night and was transferred to telemetry unit White count is minimally elevated today likely secondary to stress We will continue with the antibiotic and changed to oral on discharge Paroxysmal atrial fibrillation Went into A-fib last night Appreciate cardiology input and recommendation Toprol XL has been changed to metoprolol tartrate 25 mg every 6 hourly If recurs will need to start amiodarone Palliative care consult was recommended given the multiple cancer history and current situation (2) Leukocytosis: Plan: Minimally down Persistent leukocytosis may be increased due to stress (3) Pleural effusion: Plan: Denies any increasing shortness of breath (4) Metastatic disease: Plan: History of multiple malignancies including lung cancer with recurrence and subsequent treatment Uterine cancer status post hysterectomy Left breast cancer status postlumpectomy She has metastatic disease in the liver and in the bone and under investigation with Dr. Linton Has had liver biopsy about 1 week back and is still waiting for the results Will notify Dr. Linton about the admission Discussed with Dr. Linton-liver biopsy results are not back yet She will be seen in the office following discharge Ongoing nausea Since beginning of this year Denies any vomiting No significant weight loss Has electrolyte imbalance and we will supplement Will add Phenergan on top of Zofran (5) HTN (hypertension): Plan: Continue current medications for the blood pressure Hold hydrochlorothiazide (6) NAYA on CPAP: Plan: Continue CPAP at night (7) Pulmonary emboli: Plan: Has been on Eliquis and will be continued DVT prophylaxis On Eliquis CODE STATUS Full Will get PT and OT evaluation and possible discharge tomorrow Admission and Anticipated Discharge Date Admission Date: September 27, 2023 Subjective 09/28/2023 The patient was seen and examined in medical telemetry unit in presence of the family member She has been nauseous but no vomiting Has been eating and drinking reasonably Remain generally weak and lethargic No fever and no chills 09/29/2023 The patient was seen and examined in telemetry unit in the presence of the daughter She has been stable remains weak and lethargic Still has nausea but denies any fever and chills Had an episode of A-fib with RVR and she is back to sinus rhythm this morning Review of Systems Review of Systems: All systems reviewed and are unremarkable except as noted below Physical Exam Physical Exam: Lying in bed comfortably. Looks depressed and anxious but no distress Constitutional: well developed, well nourished, + ill appearing and + obese Eyes: PERRL, conjunctivae normal, anicteric sclerae ENMT: external ear and nose normal, oropharynx normal Neck: trachea midline, no thyromegaly Respiratory: no respiratory distress Auscultation: + diminished lung sounds and + crackles (Right basilar crackles) Cardiovascular: Rate/Rhythm: regular rate and regular rhythm; not tachycardic Heart Sounds: normal S1 and normal S2; no murmur Extremities: no edema Gastrointestinal (Abdomen): Inspection/Auscultation: normal bowel sounds; abdomen not distended Percussion/Palpation: abdomen soft; abdomen nontender Neurologic: normal touch/pain/proprioception and moves all extremities; no focal motor deficits Psychiatric: A+Ox3, euthymic affect Lymphatic: no cervical or axillary lymphadenopathy Results & Data Results & Data Vital Signs (Past 12 Hours) Vital Signs Temp Pulse Pulse Pulse Resp BP Pulse Ox 09/29/23 12:16 36.7 C 65 20 145/81 H 98 09/29/23 11:42 09/29/23 08:04 36.8 C 63 22 111/58 L 97 09/29/23 07:28 65 09/29/23 05:33 59 L 97/67 L 09/29/23 04:42 58 L 09/29/23 04:14 60 09/29/23 02:38 37.2 C 121 H 26 H 133/84 96 O2 Del Method 09/29/23 12:16 Room Air 09/29/23 11:42 Room Air 09/29/23 08:04 Room Air 09/29/23 07:28 09/29/23 05:33 09/29/23 04:42 09/29/23 04:14 09/29/23 02:38 Room Air Laboratory Results Short CBC 09/29/23 Range/Units 07:09 WBC 21.81 H (4.8-10.8) K/ul Hgb 12.9 (12.0-16.0) g/dl Hct 38.3 (37.0-47.0) % Plt Count 225 (130-400) K/uL BMP 09/28/23 09/29/23 22:53 07:09 Sodium 139 138 Potassium 3.9 3.9 Chloride 110 H 109 H Carbon Dioxide 17 L 24 BUN 13 13 Creatinine 0.79 0.82 Glucose 120 H 106 H Calcium 8.4 L 8.0 L Medications Administered Current Inpatient Medications Acetaminophen (Acetaminophen 325 Mg Tab) 650 mg PO Q6H PRN PRN Reason: Pain or Fever Stop: 10/28/23 02:07 Last Admin: 09/28/23 23:33 Dose: 650 mg Albuterol (Albuterol Hfa 8 Gm Inhaler) 2 puffs INH QID PRN PRN Reason: Shortness Of Breath Stop: 10/27/23 21:03 Amlodipine Besylate (Amlodipine Besylate 5 Mg Tab) 10 mg PO QAM [facility] Stop: 10/28/23 08:59 Last Admin: 09/29/23 11:13 Dose: 10 mg Apixaban (Apixaban 5 Mg Tablet) 5 mg PO BID [facility] Stop: 10/27/23 21:03 Last Admin: 09/29/23 09:50 Dose: 5 mg Atorvastatin Calcium (Atorvastatin 20 Mg Tab) 20 mg PO QAM [facility] Stop: 10/28/23 08:59 Last Admin: 09/29/23 11:13 Dose: 20 mg Colchicine (Colchicine 0.6 Mg Tab) 0.6 mg PO BID PRN PRN Reason: GOUT Stop: 10/27/23 21:03 Famotidine (Famotidine 20 Mg Tab) 20 mg PO BID PRN PRN Reason: Heartburn Stop: 10/27/23 21:03 Fexofenadine HCl (Fexofenadine Hcl 180 Mg Tab) 180 mg PO DAILY PRN PRN Reason: ALLERGY SYPMTOMS Stop: 10/27/23 21:03 Fluticasone Propionate (Fluticasone Propionate Na Spr 16 Gm Btl) 2 sprays NA HS [facility] Stop: 10/27/23 21:03 Last Admin: 09/28/23 21:03 Dose: 2 sprays Cefepime HCl 2,000 mg/ Syringe 20 mls @ 5 mls/min IV Q12H [facility]; Protocol Stop: 10/05/23 02:59 Last Admin: 09/29/23 03:06 Dose: 5 mls/min Doxycycline Hyclate 100 mg/ (Dextrose) 100 mls @ 50 mls/hr IV Q12H [facility] Stop: 10/05/23 06:59 Last Infusion: 09/29/23 11:47 Dose: Infused Promethazine HCl 12.5 mg/ (Sodium Chloride) 50.5 mls @ 202 mls/hr IV Q6H PRN PRN Reason: Nausea And Vomiting Stop: 10/28/23 13:27 Lisinopril (Lisinopril 40 Mg Tab) 40 mg PO [facility] Stop: 10/28/23 08:59 Last Admin: 09/29/23 11:13 Dose: 40 mg Magnesium Oxide (Magnesium Oxide 400 Mg Tab) 400 mg PO DAILY [facility] Stop: 10/28/23 08:59 Last Admin: 09/29/23 11:13 Dose: 400 mg Metoprolol Succinate (Metoprolol Succ 50mg Ext Rel Tab) 50 mg PO [facility] Stop: 10/28/23 08:59 Last Admin: 09/28/23 08:21 Dose: 50 mg Metoprolol Tartrate (Metoprolol Tartrate 1 Mg/Ml Vial) 5 mg IV Q6 PRN PRN Reason: HR > 120 Stop: 10/28/23 22:56 Last Admin: 09/28/23 23:07 Dose: 5 mg Metoprolol Tartrate (Metoprolol Tartrate 25 Mg Tab) 25 mg PO Q6 [facility] Stop: 10/28/23 23:44 Last Admin: 09/29/23 09:46 Dose: 25 mg Ondansetron HCl (Ondansetron Inj 2 Mg/Ml 2 Ml Vial) 4 mg IV Q6H PRN PRN Reason: Nausea And Vomiting Stop: 10/27/23 17:26 Last Admin: 09/29/23 11:17 Dose: 4 mg Tizanidine HCl (Tizanidine Hcl 4 Mg Tablet) 4 mg PO TID PRN PRN Reason: MUSCLE SPASMS Stop: 10/27/23 21:03 Last Admin: 09/29/23 03:17 Dose: 4 mg Vitamin D (Cholecalciferol 25 Mcg (1000 Units) Tab) 50 mcg PO DAILY [facility] Stop: 10/28/23 08:59 Last Admin: 09/29/23 11:14 Dose: 50 mcg (1) Fever Fever type: unspecified Qualified Code(s): R50.9 - Fever, unspecified (2) Leukocytosis Leukocytosis type: unspecified Qualified Code(s): D72.829 - Elevated white blood cell count, unspecified (7) Pulmonary emboli Acute cor pulmonale presence: unspecified Chronicity: acute Pulmonary embolism type: unspecified Qualified Code(s): I26.99 - Other pulmonary embolism without acute cor pulmonale
[2023-09-29] MEDS: PROMETHAZINE HCL 12.5 MG in SODIUM CHLORIDE 0.9% 50 ML IV PRN (16:40)
[2023-09-29] MEDS: PROCHLORPERAZINE 10 MG in SYRINGE 8 ML IV PRN (19:11)
[2023-09-30 06:39] LABS: Hematocrit (blood only) 41.4 % (37.0-47.0); Mean Corpuscular Hemoglobin 29.5 pg (25.0-34.0); Mean Corpuscular Hgb Conc 33.8 g/dL (32.0-36.0); Mean Corpuscular Volume 87.3 fL (80.0-100.0); Mean Platelet Volume 10.7 fL (9.4-12.4); Platelet Count 265 K/uL (130-400); RDW Coefficient of Variation 14.5 % (11.5-14.5); RDW Standard Deviation 46.5 fL (36.4-46.3); Red Blood Count 4.74 M/uL (4.20-5.40); White Blood Count 28.91 K/ul (4.8-10.8)
[2023-09-30 06:50] LABS: BUN Creatinine Ratio 24.4 (10-20); Calcium 8.2 mg/dl (8.6-10.3); Creatinine Clr Calc Pharmacy 56.2 ml/min; Est GFR (African American) 77.2 ml/min; Est GFR (Non-African American) 66.6 ml/min; Potassium 3.9 mmol/L (3.5-5.1)
[2023-09-30 06:57] LABS: Troponin I High Sensitivity 21.2 pg/ml (0-14)
[2023-09-30 07:02] LABS: Basophils # (auto) 0.09 K/uL (0.00-0.20); Basophils % (auto) 0.3 %; Eosinophils # (auto) 0.41 K/uL (0.00-0.50); Eosinophils % (auto) 1.4 %; Immature Granulocytes # (auto) 0.22 K/uL (0.01-0.20); Immature Granulocytes % (auto) 0.8 %; Lymphocytes # (auto) 2.78 K/uL (1.20-3.40); Lymphocytes % (auto) 9.6 %; Monocytes # (auto) 3.16 K/uL (0.11-0.59); Monocytes % (auto) 10.9 %; Neutrophils # (auto) 22.25 K/uL (1.40-6.50)
[2023-09-30] MEDS: FAMOTIDINE 20 MG TAB PO PRN (08:50)
[2023-09-30] MEDS: FEXOFENADINE HCL 180 MG TAB PO PRN (08:51)
--- NOTE | 2023-09-30 12:36 | Communication Note ---
Date of Service: September 30, 2023 Mrs Aguayo requested results from her liver bx done at [facility]. EMR Link reviewed. confirms met ca consistent with lung primary. additional stains and testing pending. updated pt and her son at bedside. reinforced additional studies pending. she informed me her prior oncologist told her if this is lung again she will be restarting her prior chemo regimen as it had done well for her the first time and she tolerated it well. Thank you for allowing us to participate in the ongoing care of this patient. Please don't hesitate to call or page with any additional concerns. Dr. Yenny Mann DNP Director, Palliative Care
[2023-09-30] MEDS: FUROSEMIDE INJ 20 MG/2 ML VIAL IV ONE (14:15)
--- NOTE | 2023-09-30 14:16 | XRay Report ---
XR chest 1V portable CLINICAL HISTORY: sob TECHNIQUE: Single frontal radiograph of the chest was obtained. 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 Port catheter is stable. Cardiomegaly is noted. The aortic arch is calcified. Right lower lung airspace opacity has increased from prior exam. Right greater than left pleural effusions. IMPRESSION: Bilateral pleural effusions and right lower lung airspace opacity are increased from prior exam. ACT 112: Negative or not required by law. Electronically signed by: Antwon Greenberg M.D. 09/30/2023 2:14 PM
[2023-09-30] MEDS ORDERED: SODIUM CHLORIDE 0.9% 10ML FLUSH IV ONE (15:47)
[2023-09-30] MEDS ORDERED: ADENOSINE IV SOLN 3 MG/ML 2 ML VIAL IV ONE (15:47)
--- NOTE | 2023-09-30 17:05 | Hospitalist Progress Note ---
Date of Service September 30, 2023 Assessment & Plan (1) Pleural effusion: Plan: SIRS--presented with fever, leukocytosis Suspected right lower lobe pneumonia with associated effusion B/L pleural effusion ? Malignant pleural effusion H/O lung Cancer --CXR:Bilateral pleural effusions and right lower lung airspace opacity are increased from prior exam. --Negative BioFire --ECHO: Left ventricle is normal in size. Moderate concentric LVH (, mostly normal. EF 55 to 60%. Grade 1 diastolic dysfunction. -- Blood cultures pending Empirically on cefepime, doxycycline Lasix as needed Continue HCTZ Will consider ID evaluation if no improvement Will repeat chest x-ray tomorrow Paroxysmal atrial fibrillation -- Normal TSH --Echo as above --Continue metoprolol On Eliquis for anticoagulation Appreciate cardiology input Metastatic disease: H/O multiple malignancies including lung cancer with recurrence and subsequent treatment Uterine cancer S/P hysterectomy Left breast cancer S/P lumpectomy H/O Skin Cancer Metastatic disease to Liver and bone--Path pending --CT ABD: Multifocal lesions concerning for metastatic disease noted in the liver, spleen, possibly right adrenal gland, and skeleton. No acute abnormalities to explain fever and nausea. In particular the appendix is normal and there is no evidence of bowel obstruction. Right pleural effusion is nonspecific but malignant effusion cannot be excluded. -- Appreciate palliative care input --Needs follow-up with oncology on discharge Ongoing nausea Likely due to above Monitor and replete electrolytes as needed Antiemetics as needed HTN Continue lisinopril, metoprolol, HCTZ Monitor BP NAYA on CPAP HS H/O PE/DVT on Eliquis DVT prophylaxis On Eliquis CODE STATUS Full Code Admission and Anticipated Discharge Date Admission Date: September 27, 2023 Subjective Patient is seen and examined at bedside Reports chronic nausea but no vomiting today Also states having cough, generalized weakness No significant dyspnea today Discussed with patient's son at bedside Offers no other complaints Saturating well on room air Review of Systems Review of Systems: All systems reviewed & are unremarkable except as noted in Subjective Physical Exam Physical Exam: Physical Exam: Vitals signs as noted above General Appearance:Obese, no apparent distress Head: normocephalic, Atraumatic Eyes: normal inspection, EOMI Neck: supple, Trachea midline Respiratory/Chest: Decreased breath sounds, +Basal rales, No accessory muscle use, +R chemo port Cardiovascular: S1, S2, No murmur Abdomen/GI:Soft, Non tender, Bowel sounds present Extremities/Musculoskeletal:normal inspection, no edema Neurologic/Psych:AAOX3, grossly no focal neurological deficits Skin: normal color, warm Results & Data Results & Data Vital Signs (Past 12 Hours) Vital Signs Temp Pulse Pulse Resp BP Pulse Ox O2 Del Method 09/30/23 15:35 75 09/30/23 10:39 36.5 C 91 H 18 158/90 H 95 Room Air 09/30/23 10:13 Room Air 09/30/23 08:02 36.6 C 88 20 159/66 H 96 Room Air 09/30/23 07:26 88 Laboratory Results Short CBC 09/30/23 Range/Units 05:54 WBC 28.91 H (4.8-10.8) K/ul Hgb 14.0 (12.0-16.0) g/dl Hct 41.4 (37.0-47.0) % Plt Count 265 (130-400) K/uL BMP 09/30/23 05:54 Sodium 137 Potassium 3.9 Chloride 107 Carbon Dioxide 22 BUN 20 Creatinine 0.82 Glucose 104 H Calcium 8.2 L
--- NOTE | 2023-09-30 19:48 | Palliative Care Consultation ---
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 Met with her and son. We reviewed her declining trajectory which has been more accelerated this past 5 months with weight loss of approx 25lbs. She tells me she is pretty sure this is her lung cancer coming back and they asked for results from liver biopsy - I reviewed EPIC EMR link and we confirmed prelim result is met cancer from lung primary which i confirmed for her and son. she says dr donnelly already said if it comes back as met lung he will restart her prior cancer rx. we also discussed code status and cpr survival. she has historically favored no code but son was very emotional and wants time to speak with family together so i told them to discuss tonight into tomorrow. I will f/u Thursday. I am in OP clinic all day tomorrow but available by pager for any urgent needs. (4) Palliative care by specialist: Plan as above Thank you for allowing us to participate in the ongoing care of this patient. Please don't hesitate to call or page with any additional concerns. Dr. Yenny Mann DNP Director, Palliative Care History of Present Illness Reason for Consultation: Please address goals of care Attending Physician: Ayan Moreno MD History of Present Illness Fevers progressively worsening shortness of breath which she reported began in May 2023. She was found to have a right pleural effusion. She reports that prior imaging studies did reveal a mass in the liver which she had biopsy to [facility] last week and she is awaiting test results. Additionally she reports an outside hospital PET/CT revealed multiple hotspots in her liver and spine. She has a prior history of lung cancer. She already spoke with her prior oncologist at [facility] who advised that if the biopsy returns as a metastatic lung cancer, the plan will be to resume her prior cancer directed th erapy as it has been effective for her. During this admission, she developed paroxysmal A-fib with RVR. Metoprolol 25 mg every 6 hours has been added. This was held earlier this morning due to hypo tension. Additionally, it is thought that she may have a possible pneumonia in addition to her right pleural effusion. She has been started on broad-spectrum antibiotics. Blood cultures x 2 remain negative (preliminary. Generalized, tingling decline over the last year which began to accelerate beginning in May 2023. She has steadily lost weight, approximately 25 pounds, with increasing weakness, fatigue, nausea, and progressively worsening dyspnea. Her son adds that she was very short of breath even at rest. She was not able to tolerate any activities for sustained period of time. Dianne is known to me from prior hospital encounters with her , Palmer, who is followed by palliative medicine until the time of his December 2022. Allergies Allergy/AdvReac Type Severity Reaction Status Date / Time castor oil Allergy Severe ANAPHYLAXIS Verified 09/27/23 16:45 paclitaxel Allergy Severe ANAPHYLAXIS Verified 09/27/23 16:45 ciprofloxacin Allergy Intermediate HIVES/RASH Verified 09/27/23 16:45 codeine AdvReac Intermediate GI SYMPTOMS Verified 09/27/23 16:45 cyproheptadine AdvReac Intermediate LETHARGY Verified 09/27/23 16:45 doxepin AdvReac Intermediate LETHARGY Verified 09/27/23 16:45 gabapentin AdvReac Intermediate GI Verified 09/27/23 16:45 SYMPTOMS/"FEEL OUT OF IT" hydrocodone AdvReac Intermediate GI SYMPTOMS Verified 09/27/23 16:45 meloxicam AdvReac Intermediate DIZZINESS, Verified 09/27/23 16:45 HEADACHE, NAUSEA oxycodone AdvReac Intermediate GI SYMPTOMS Verified 09/27/23 16:45 prednisone AdvReac Intermediate ELEVATED Verified 09/27/23 16:46 GLUCOSE tramadol AdvReac Intermediate GI SYMPTOMS Verified 09/27/23 16:46 Home Medications Medication Instructions Recorded Confirmed Type albuterol sulfate 90 mcg/actuation 2 puff inhalation QID PRN SOB 06/23/18 09/27/23 History aerosol inhaler amlodipine 10 mg tablet 10 mg PO QAM 06/23/18 09/27/23 History atorvastatin 20 mg tablet 20 mg PO QAM 06/23/18 09/27/23 History colchicine 0.6 mg tablet 0.6 mg PO BID PRN GOUT 06/23/18 09/27/23 History metoprolol succinate 50 mg 50 mg PO QAM 06/23/18 09/27/23 History tablet,extended release 24 hr tizanidine 4 mg capsule 4 mg PO TID PRN MUSCLE SPASMS 06/23/18 09/27/23 History fluticasone propionate 50 2 spray intranasal HS Congestion 12/19/19 09/27/23 History mcg/actuation nasal spray,suspension ondansetron HCl 8 mg tablet 8 mg PO Q8H PRN Nausea 12/19/19 09/27/23 History prochlorperazine maleate 10 mg 10 mg PO Q6H PRN Nausea 12/19/19 09/27/23 History tablet apixaban 5 mg tablet (Eliquis) 5 mg PO BID 12/30/21 09/27/23 History famotidine 20 mg tablet (Pepcid) 20 mg PO BID PRN Heartburn 12/30/21 09/27/23 History amoxicillin 500 mg capsule 2,000 mg PO DIRECTED PRN 1 HR 09/27/23 09/27/23 History PRIOR TO DENTAL PROCEDURES cholecalciferol (vitamin D3) 50 2,000 unit PO DAILY 09/27/23 09/27/23 History mcg (2,000 unit) capsule (Vitamin D3) fexofenadine 180 mg tablet 180 mg PO DAILY PRN ALLERGY 09/27/23 09/27/23 History SYPMTOMS hydrochlorothiazide 12.5 mg tablet 12.5 mg PO QAM 09/27/23 09/27/23 History lisinopril 40 mg tablet 40 mg PO QAM 09/27/23 09/27/23 History magnesium oxide 400 mg PO DAILY 09/27/23 09/27/23 History meclizine 25 mg tablet 25 mg PO TID PRN Dizziness 09/27/23 09/27/23 History potassium citrate 10 mEq (1,080 10 meq PO BID 09/27/23 09/27/23 History mg) tablet,extended release Patient History Medical History History of Clostridioides difficile infection After abx, s/p vanco completed 12/31- diarrhea resolved per PAT visit 01/01 Pulmonary embolism 2020, reason for Eliquis; f/u dr morgan, s once/year Sleep apnea Remote hx- no device currently ("lost device") History of bronchitis Reason for inhaler PRN, no recent issues Osteoporosis History of skin cancer Nose and left leg (s/p excision) History of breast cancer s/p chemo, left mastectomy; limb restriction lt arm History of lung cancer s/p RUL wedge resection NSCLC - on Osimertinib (Tagrisso) per heme/onc History of uterine cancer s/p Hysterectomy History of kidney stones Kidney disease Stage III Acid reflux Anxiety Gout Hx Hypertension Surgical History Hx of myringotomy Hx of cataract extraction History of open reduction and internal fixation (ORIF) procedure Status post reverse arthroplasty of shoulder History of surgery History of colonoscopy History of tonsillectomy and adenoidectomy History of total right knee replacement History of left mastectomy History of lung surgery History of hysterectomy Family History Mother History of breast cancer History of ovarian cancer Grandmother History of colon cancer Social History Smoking Status: Never smoker Second Hand Exposure: Yes ( used to smoke); Do You Dip or Chew Tobacco: No; Hx Alcohol Use: No Hx Substance Use: No Preferred Language: Egyptian Communication Ability: Effective Home Stereo Equipment Installer Required: No Beliefs That Will Affect Care: None marital status: Current Living Situation: Alone Current Living Situation Comment: lives in house Other Information That Helps Us Care for You: No Feels Safe at Home: Yes Safety Concerns: Feels Safe At This Time Assistive Devices: Cane and Walker Review of Systems Review of Systems: All systems reviewed & are unremarkable except as noted in Subjective Physical Exam Physical Exam: Ill appearing female supine in bed bitemp wasting conversational dyspnea use of accessory muscles dim right lung irreg irreg s1s2 abd tender, TTP, BS diminished gen weakness skin pale, cool aaox3 Results & Data Vital Signs (Past 12 Hours) Vital Signs Temp Pulse Pulse Resp BP Pulse Ox O2 Del Method 09/30/23 16:52 36.5 C 87 18 149/72 H 96 Room Air 09/30/23 15:35 75 09/30/23 10:39 36.5 C 91 H 18 158/90 H 95 Room Air 09/30/23 10:13 Room Air 09/30/23 08:02 36.6 C 88 20 159/66 H 96 Room Air Laboratory Results 09/30/23 09/30/23 09/29/23 Range/Units 10:52 05:54 16:33 WBC 28.91 H (4.8-10.8) K/ul RBC 4.74 (4.20-5.40) M/uL Hgb 14.0 (12.0-16.0) g/dl Hct 41.4 (37.0-47.0) % MCV 87.3 (80.0-100.0) fL MCH 29.5 (25.0-34.0) pg MCHC 33.8 (32.0-36.0) g/dL RDW Std Deviation 46.5 H (36.4-46.3) fL RDW Coeff of Thien 14.5 (11.5-14.5) % Plt Count 265 (130-400) K/uL MPV 10.7 (9.4-12.4) fL Immature Gran % (Auto) 0.8 % Neut % (Auto) 77.0 % Lymph % (Auto) 9.6 % [place] % (Auto) 10.9 % Eos % (Auto) 1.4 % Baso % (Auto) 0.3 % Neut # (Auto) 22.25 H (1.40-6.50) K/uL Lymph # (Auto) 2.78 (1.20-3.40) K/uL [place] # (Auto) 3.16 H (0.11-0.59) K/uL Eos # (Auto) 0.41 (0.00-0.50) K/uL Baso # (Auto) 0.09 (0.00-0.20) K/uL Immature Gran # (Auto) 0.22 H (0.01-0.20) K/uL Sodium 137 (136-145) mmol/L Potassium 3.9 (3.5-5.1) mmol/L Chloride 107 (98-107) mmol/L Carbon Dioxide 22 (21-32) mmol/L Anion Gap 8 (3-11) BUN 20 (6-23) mg/dl Creatinine 0.82 (0.6-1.2) mg/dl Est Cr Clr Drug Dosing 56.2 Est GFR ( Amer) 77.2 ml/min Est GFR (Non-Af Amer) 66.6 ml/min BUN/Creatinine Ratio 24.4 H (10-20) Glucose 104 H (70-99(Fasting)) mg/dl Lactate (0.4-2.0) mmol/L Calcium 8.2 L (8.6-10.3) mg/dl Phosphorus (2.5-4.9) mg/dl Magnesium 2.0 (1.7-2.4) mg/dl Total Bilirubin (0.2-1.0) mg/dl AST (13-39) U/L ALT (7-52) U/L Alkaline Phosphatase (34-104) U/L Troponin I High Sens 15.6 H D 21.2 H 27.5 H D (0-14) pg/ml Total Protein (6.0-8.3) gm/dl Albumin (3.4-5.0) gm/dl Globulin (2.5-4.0) gm/dl Albumin/Globulin Ratio (0.9-2) TSH (0.300-4.500) uIu/ml Urine Color Urine Appearance (Clear) Urine pH (4.5-7.5) Ur Specific [place] (1.000-1.030) Urine Protein (Negative) Urine Glucose (UA) (Negative) Urine Ketones (Negative) Urine Blood (Negative) Urine Nitrite (Negative) Urine Bilirubin (Negative) Urine Urobilinogen (Negative) Ur Leukocyte Esterase (Negative) Urine WBC (Auto) (0-5) /hpf Urine RBC (Auto) (0-2) /hpf U Hyaline Cast (Auto) (0-2) /lpf U Epithel Cells (Auto) (0-2) /hpf Urine Bacteria (Auto) (None Seen) Adenovirus (PCR) (NotDetected) B. pertussis DNA (PCR) (NotDetected) B.parapertussis DNA PCR (NotDetected) C. pneumoniae DNA (PCR) (NotDetected) Coronavirus OC43 (PCR) (NotDetected) Coronavirus HKU1 (PCR) (NotDetected) Coronavirus 229E (PCR) (NotDetected) SARS-CoV-2 (PCR) (NotDetected) Coronavirus NL63 (PCR) (NotDetected) Human Metapneumovir PCR (NotDetected) Influenza Type A (PCR) (NotDetected) Influenza Type B (PCR) (NotDetected) M. pneumoniae (PCR) (NotDetected) Parainfluenza 1 (PCR) (NotDetected) Parainfluenza 2 (PCR) (NotDetected) Parainfluenza 3 (PCR) (NotDetected) Parainfluenza 4 (PCR) (NotDetected) RSV (PCR) (NotDetected) Entero/Rhino (PCR) (NotDetected) 09/29/23 09/29/23 09/29/23 Range/Units 10:56 07:09 05:59 WBC 21.81 H (4.8-10.8) K/ul RBC 4.37 (4.20-5.40) M/uL Hgb 12.9 (12.0-16.0) g/dl Hct 38.3 (37.0-47.0) % MCV 87.6 (80.0-100.0) fL MCH 29.5 (25.0-34.0) pg MCHC 33.7 (32.0-36.0) g/dL RDW Std Deviation 46.4 H (36.4-46.3) fL RDW Coeff of Thien 14.4 (11.5-14.5) % Plt Count 225 (130-400) K/uL MPV 10.5 (9.4-12.4) fL Immature Gran % (Auto) 0.8 % Neut % (Auto) 77.2 % Lymph % (Auto) 10.5 % [place] % (Auto) 9.4 % Eos % (Auto) 1.7 % Baso % (Auto) 0.4 % Neut # (Auto) 16.84 H (1.40-6.50) K/uL Lymph # (Auto) 2.28 (1.20-3.40) K/uL [place] # (Auto) 2.05 H (0.11-0.59) K/uL Eos # (Auto) 0.38 (0.00-0.50) K/uL Baso # (Auto) 0.08 (0.00-0.20) K/uL Immature Gran # (Auto) 0.18 (0.01-0.20) K/uL Sodium 138 (136-145) mmol/L Potassium 3.9 (3.5-5.1) mmol/L Chloride 109 H (98-107) mmol/L Carbon Dioxide 24 (21-32) mmol/L Anion Gap 5 (3-11) BUN 13 (6-23) mg/dl Creatinine 0.82 (0.6-1.2) mg/dl Est Cr Clr Drug Dosing 56.2 Est GFR ( Amer) 77.2 ml/min Est GFR (Non-Af Amer) 66.6 ml/min BUN/Creatinine Ratio 15.9 (10-20) Glucose 106 H (70-99(Fasting)) mg/dl Lactate (0.4-2.0) mmol/L Calcium 8.0 L (8.6-10.3) mg/dl Phosphorus (2.5-4.9) mg/dl Magnesium 2.3 (1.7-2.4) mg/dl Total Bilirubin (0.2-1.0) mg/dl AST (13-39) U/L ALT (7-52) U/L Alkaline Phosphatase (34-104) U/L Troponin I High Sens 16.1 H 15.2 H (0-14) pg/ml Total Protein (6.0-8.3) gm/dl Albumin (3.4-5.0) gm/dl Globulin (2.5-4.0) gm/dl Albumin/Globulin Ratio (0.9-2) TSH (0.300-4.500) uIu/ml Urine Color Urine Appearance (Clear) Urine pH (4.5-7.5) Ur Specific [place] (1.000-1.030) Urine Protein (Negative) Urine Glucose (UA) (Negative) Urine Ketones (Negative) Urine Blood (Negative) Urine Nitrite (Negative) Urine Bilirubin (Negative) Urine Urobilinogen (Negative) Ur Leukocyte Esterase (Negative) Urine WBC (Auto) (0-5) /hpf Urine RBC (Auto) (0-2) /hpf U Hyaline Cast (Auto) (0-2) /lpf U Epithel Cells (Auto) (0-2) /hpf Urine Bacteria (Auto) (None Seen) Adenovirus (PCR) (NotDetected) B. pertussis DNA (PCR) (NotDetected) B.parapertussis DNA PCR (NotDetected) C. pneumoniae DNA (PCR) (NotDetected) Coronavirus OC43 (PCR) (NotDetected) Coronavirus HKU1 (PCR) (NotDetected) Coronavirus 229E (PCR) (NotDetected) SARS-CoV-2 (PCR) (NotDetected) Coronavirus NL63 (PCR) (NotDetected) Human Metapneumovir PCR (NotDetected) Influenza Type A (PCR) (NotDetected) Influenza Type B (PCR) (NotDetected) M. pneumoniae (PCR) (NotDetected) Parainfluenza 1 (PCR) (NotDetected) Parainfluenza 2 (PCR) (NotDetected) Parainfluenza 3 (PCR) (NotDetected) Parainfluenza 4 (PCR) (NotDetected) RSV (PCR) (NotDetected) Entero/Rhino (PCR) (NotDetected) 09/28/23 09/28/23 09/27/23 Range/Units 22:53 05:49 15:06 WBC 19.15 H (4.8-10.8) K/ul RBC 4.41 (4.20-5.40) M/uL Hgb 13.4 (12.0-16.0) g/dl Hct 38.9 (37.0-47.0) % MCV 88.2 (80.0-100.0) fL MCH 30.4 (25.0-34.0) pg MCHC 34.4 (32.0-36.0) g/dL RDW Std Deviation 45.8 (36.4-46.3) fL RDW Coeff of Thien 14.2 (11.5-14.5) % Plt Count 216 (130-400) K/uL MPV 10.4 (9.4-12.4) fL Immature Gran % (Auto) 0.6 % Neut % (Auto) 79.4 % Lymph % (Auto) 8.6 % [place] % (Auto) 10.5 % Eos % (Auto) 0.6 % Baso % (Auto) 0.3 % Neut # (Auto) 15.20 H (1.40-6.50) K/uL Lymph # (Auto) 1.64 (1.20-3.40) K/uL [place] # (Auto) 2.02 H (0.11-0.59) K/uL Eos # (Auto) 0.11 (0.00-0.50) K/uL Baso # (Auto) 0.06 (0.00-0.20) K/uL Immature Gran # (Auto) 0.12 (0.01-0.20) K/uL Sodium 139 140 (136-145) mmol/L Potassium 3.9 3.4 L (3.5-5.1) mmol/L Chloride 110 H 109 H (98-107) mmol/L Carbon Dioxide 17 L 24 (21-32) mmol/L Anion Gap 12 H 7 (3-11) BUN 13 14 (6-23) mg/dl Creatinine 0.79 0.80 (0.6-1.2) mg/dl Est Cr Clr Drug Dosing 58.5 57.8 Est GFR ( Amer) 80.8 79.6 ml/min Est GFR (Non-Af Amer) 69.7 68.7 ml/min BUN/Creatinine Ratio 16.5 17.5 (10-20) Glucose 120 H 108 H (70-99(Fasting)) mg/dl Lactate (0.4-2.0) mmol/L Calcium 8.4 L 7.8 L (8.6-10.3) mg/dl Phosphorus 2.7 (2.5-4.9) mg/dl Magnesium 1.7 1.7 (1.7-2.4) mg/dl Total Bilirubin 1.3 H (0.2-1.0) mg/dl AST 55 H (13-39) U/L ALT 30 (7-52) U/L Alkaline Phosphatase 246 H (34-104) U/L Troponin I High Sens 14.0 D (0-14) pg/ml Total Protein 5.6 L (6.0-8.3) gm/dl Albumin 3.5 (3.4-5.0) gm/dl Globulin 2.1 L (2.5-4.0) gm/dl Albumin/Globulin Ratio 1.7 (0.9-2) TSH (0.300-4.500) uIu/ml Urine Color Yellow Urine Appearance Clear (Clear) Urine pH 7.5 (4.5-7.5) Ur Specific [place] 1.006 (1.000-1.030) Urine Protein Trace H (Negative) Urine Glucose (UA) Negative (Negative) Urine Ketones Negative (Negative) Urine Blood 1+ H (Negative) Urine Nitrite Negative (Negative) Urine Bilirubin Negative (Negative) Urine Urobilinogen Negative (Negative) Ur Leukocyte Esterase 2+ H (Negative) Urine WBC (Auto) 6-10 H (0-5) /hpf Urine RBC (Auto) 3-5 H (0-2) /hpf U Hyaline Cast (Auto) 0-2 (0-2) /lpf U Epithel Cells (Auto) 0-2 (0-2) /hpf Urine Bacteria (Auto) None Seen (None Seen) Adenovirus (PCR) (NotDetected) B. pertussis DNA (PCR) (NotDetected) B.parapertussis DNA PCR (NotDetected) C. pneumoniae DNA (PCR) (NotDetected) Coronavirus OC43 (PCR) (NotDetected) Coronavirus HKU1 (PCR) (NotDetected) Coronavirus 229E (PCR) (NotDetected) SARS-CoV-2 (PCR) (NotDetected) Coronavirus NL63 (PCR) (NotDetected) Human Metapneumovir PCR (NotDetected) Influenza Type A (PCR) (NotDetected) Influenza Type B (PCR) (NotDetected) M. pneumoniae (PCR) (NotDetected) Parainfluenza 1 (PCR) (NotDetected) Parainfluenza 2 (PCR) (NotDetected) Parainfluenza 3 (PCR) (NotDetected) Parainfluenza 4 (PCR) (NotDetected) RSV (PCR) (NotDetected) Entero/Rhino (PCR) (NotDetected) 09/27/23 09/27/23 09/27/23 Range/Units 13:49 13:28 13:16 WBC 21.87 H (4.8-10.8) K/ul RBC 4.76 (4.20-5.40) M/uL Hgb 14.0 (12.0-16.0) g/dl Hct 41.2 (37.0-47.0) % MCV 86.6 (80.0-100.0) fL MCH 29.4 (25.0-34.0) pg MCHC 34.0 (32.0-36.0) g/dL RDW Std Deviation 44.5 (36.4-46.3) fL RDW Coeff of Thien 14.0 (11.5-14.5) % Plt Count 274 (130-400) K/uL MPV 10.3 (9.4-12.4) fL Immature Gran % (Auto) 0.5 % Neut % (Auto) 83.8 % Lymph % (Auto) 6.0 % [place] % (Auto) 8.2 % Eos % (Auto) 1.1 % Baso % (Auto) 0.4 % Neut # (Auto) 18.35 H (1.40-6.50) K/uL Lymph # (Auto) 1.32 (1.20-3.40) K/uL [place] # (Auto) 1.79 H (0.11-0.59) K/uL Eos # (Auto) 0.23 (0.00-0.50) K/uL Baso # (Auto) 0.08 (0.00-0.20) K/uL Immature Gran # (Auto) 0.10 (0.01-0.20) K/uL Sodium 137 (136-145) mmol/L Potassium 3.3 L (3.5-5.1) mmol/L Chloride 102 (98-107) mmol/L Carbon Dioxide 24 (21-32) mmol/L Anion Gap 11 (3-11) BUN 22 (6-23) mg/dl Creatinine 1.03 (0.6-1.2) mg/dl Est Cr Clr Drug Dosing Not Reportable Est GFR ( Amer) 58.6 ml/min Est GFR (Non-Af Amer) 50.6 ml/min BUN/Creatinine Ratio 21.4 H (10-20) Glucose 111 H (70-99(Fasting)) mg/dl Lactate 1.5 (0.4-2.0) mmol/L Calcium 9.2 (8.6-10.3) mg/dl Phosphorus (2.5-4.9) mg/dl Magnesium 1.8 (1.7-2.4) mg/dl Total Bilirubin 1.1 H (0.2-1.0) mg/dl AST 81 H (13-39) U/L ALT 40 (7-52) U/L Alkaline Phosphatase 302 H (34-104) U/L Troponin I High Sens 7.5 (0-14) pg/ml Total Protein 6.3 (6.0-8.3) gm/dl Albumin 4.2 (3.4-5.0) gm/dl Globulin 2.1 L (2.5-4.0) gm/dl Albumin/Globulin Ratio 2.0 (0.9-2) TSH 1.153 (0.300-4.500) uIu/ml Urine Color Urine Appearance (Clear) Urine pH (4.5-7.5) Ur Specific [place] (1.000-1.030) Urine Protein (Negative) Urine Glucose (UA) (Negative) Urine Ketones (Negative) Urine Blood (Negative) Urine Nitrite (Negative) Urine Bilirubin (Negative) Urine Urobilinogen (Negative) Ur Leukocyte Esterase (Negative) Urine WBC (Auto) (0-5) /hpf Urine RBC (Auto) (0-2) /hpf U Hyaline Cast (Auto) (0-2) /lpf U Epithel Cells (Auto) (0-2) /hpf Urine Bacteria (Auto) (None Seen) Adenovirus (PCR) Not Detected (NotDetected) B. pertussis DNA (PCR) Not Detected (NotDetected) B.parapertussis DNA PCR Not Detected (NotDetected) C. pneumoniae DNA (PCR) Not Detected (NotDetected) Coronavirus OC43 (PCR) Not Detected (NotDetected) Coronavirus HKU1 (PCR) Not Detected (NotDetected) Coronavirus 229E (PCR) Not Detected (NotDetected) SARS-CoV-2 (PCR) Not Detected (NotDetected) Coronavirus NL63 (PCR) Not Detected (NotDetected) Human Metapneumovir PCR Not Detected (NotDetected) Influenza Type A (PCR) Not Detected (NotDetected) Influenza Type B (PCR) Not Detected (NotDetected) M. pneumoniae (PCR) Not Detected (NotDetected) Parainfluenza 1 (PCR) Not Detected (NotDetected) Parainfluenza 2 (PCR) Not Detected (NotDetected) Parainfluenza 3 (PCR) Not Detected (NotDetected) Parainfluenza 4 (PCR) Not Detected (NotDetected) RSV (PCR) Not Detected (NotDetected) Entero/Rhino (PCR) Not Detected (NotDetected) Diagnostic Findings Chest X-Ray 09/27/23 13:31 XR chest 1V portable CLINICAL HISTORY: weakness TECHNIQUE: Single frontal radiograph of the chest was obtained. Comparison: Comparison is made to chest radiograph 01/01/2022 FINDINGS: A port catheter is seen. Cardiomegaly is noted. The lungs are clear. Small right pleural effusion is seen. IMPRESSION: Small right pleural effusion is seen. Underlying airspace opacity likely represents atelectasis with or without pneumonia/aspiration. ACT 112: Negative or not required by law. Electronically signed by: Antwon Greenberg M.D. 09/27/2023 3:06 PM Abdomen/Pelvis CT 09/27/23 14:24 CT abd pelvis IV con only CLINICAL HISTORY: fever, recent liver biopsy TECHNIQUE: Helical axial images of the abdomen and pelvis were obtained and displayed. Automated dose lowering techniques and/or adjustment according to patient size were utilized for this exam. This exam was performed with intravenous contrast. CT DOSE: 1176.11 mGy.cm COMPARISON: Comparison is made to CT abdomen pelvis 08/26/2015 FINDINGS: Lower chest: There is a small right pleural effusion with associated atelectasis. Cardiomegaly is seen. Liver: Innumerable, relatively hypoenhancing hepatic lesions are seen. Gallbladder and biliary tree: Cholelithiasis is seen without evidence of cholecystitis. No intra- or extrahepatic biliary ductal dilation. Pancreas: Fatty replacement of the pancreas is seen. Spleen: Mildly hypoenhancing splenic lesions are also seen. Adrenals: There is a right adrenal nodule measuring 14 mm in diameter, new from prior exam. Nodular thickening of the left adrenal gland is unchanged. Kidneys and ureters: Nonobstructive nephrolithiasis is seen. Bilateral renal cysts are seen. Bladder: Unremarkable. Reproductive organs: Patient is status post hysterectomy. Bowel: The appendix is normal. Lymph nodes Retroperitoneal: Unremarkable. Pelvic: Unremarkable. Mesenteric: Unremarkable. Peritoneum: Normal. Vessels: Unremarkable. Abdominal wall: Unremarkable. Bones: Degenerative changes in the visualized spine. Multiple sclerotic foci are seen in the skeleton. A left femoral nail is seen. IMPRESSION: 1. Multifocal lesions concerning for metastatic disease noted in the liver, spleen, possibly right adrenal gland, and skeleton. No acute abnormalities to explain fever and nausea. In particular the appendix is normal and there is no evidence of bowel obstruction. 2. Right pleural effusion is nonspecific but malignant effusion cannot be excluded. 3. Additional findings as above. ACT 112: Negative or not required by law. Electronically signed by: Antwon Greenberg M.D. 09/27/2023 4:17 PM Chest X-Ray 09/29/23 00:12 XR chest 1V portable CLINICAL HISTORY: congestion? COMPARISON STUDY: Chest CT February 27, 2021. Chest radiograph 09/27/2023. FINDINGS: Right subclavian [id number] and bilateral shoulder arthroplasties are incidentally noted. Cardiomegaly is unchanged. Pulmonary vascular congestion persists. A moderate right pleural effusion is unchanged. There is no pneumothorax. . There are postoperative findings within the right hemithorax. IMPRESSION: 1. Cardiomegaly with pulmonary vascular congestion. 2. Moderate right pleural effusion. No pneumothorax. ACT 112: Negative or not required by law. Electronically signed by: Tam Ferrari M.D. 09/29/2023 8:35 AM Chest X-Ray 09/29/23 21:13 XR chest 1V portable CLINICAL HISTORY: sob TECHNIQUE: Single frontal radiograph of the chest was obtained. 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 Port catheter is stable. Cardiomegaly is noted. The aortic arch is calcified. Right lower lung airspace opacity has increased from prior exam. Right greater than left pleural effusions. IMPRESSION: Bilateral pleural effusions and right lower lung airspace opacity are increased from prior exam. ACT 112: Negative or not required by law. Electronically signed by: Antwon Greenberg M.D. 09/30/2023 2:14 PM PG Care Time/CCT Total # of Minutes Spent Total Time Spent with Patient: Total time spent is greater than 50% in coordination of care (as documented) at patient's floor/unit and/or counseling patient: I spent 125 minutes overall addressing this case: 15 min in medical data review/discussion with referring provider(s) and/or preparation for the visit 20 min in direct interaction with the patient/exam 60 min in Advance Care Planning/Goals of Care discussions as detailed above in note (must be >16min) 15 min in subsequent review and synthesis of assessment and plan 15 min communicating with other providers regarding the patient's case: primary team, oncology, nursing Prolonged Care Time Prolonged Care Time: Yes Advanced Care Planning 92325 Advanced Care Planning 30 Min 17524 Advanced Care Planning Additional 30 [place] [address] IN/OBS CONSULT LVL 5,80M (25 - SIGNIFICANT, SEPARATELY IDENTIFIABLE ) Patient Type New Medical Decision Making High Complexity Diagnoses Dyspnea and respiratory abnormalities R06.00; R06.89 Weakness generalized R53.1 Advanced care planning/counseling discussion Z71.89 Palliative care by specialist Z51.5 Additional Codes Advanced Care Planning - 26676 Advanced Care Planning 30 Min: 06150 Advanced Care Planning 30 Min ([id number]) Advanced Care Planning - 87335 Advanced Care Planning Additional 30 Min: 77885 Advanced Care Planning Additional 30 Min ([id number]) Prolonged Care Time - Prolonged Care Time: Yes ([id number])
[2023-09-30] MEDS: DOXYCYCLINE HYCLATE 100 MG CAP PO SCH (20:19)
[2023-10-01 07:37] LABS: Basophils # (auto) 0.09 K/uL (0.00-0.20); Basophils % (auto) 0.4 %; Eosinophils # (auto) 0.57 K/uL (0.00-0.50); Eosinophils % (auto) 2.6 %; Hematocrit (blood only) 38.7 % (37.0-47.0); Immature Granulocytes # (auto) 0.16 K/uL (0.01-0.20); Immature Granulocytes % (auto) 0.7 %; Lymphocytes # (auto) 1.88 K/uL (1.20-3.40); Lymphocytes % (auto) 8.5 %; Mean Corpuscular Hemoglobin 29.1 pg (25.0-34.0); Mean Corpuscular Hgb Conc 33.6 g/dL (32.0-36.0); Mean Corpuscular Volume 86.6 fL (80.0-100.0); Mean Platelet Volume 10.2 fL (9.4-12.4); Monocytes # (auto) 2.35 K/uL (0.11-0.59); Monocytes % (auto) 10.7 %; Neutrophils # (auto) 17.01 K/uL (1.40-6.50); Neutrophils % (auto) 77.1 %; Platelet Count 229 K/uL (130-400); RDW Coefficient of Variation 14.5 % (11.5-14.5); RDW Standard Deviation 45.7 fL (36.4-46.3); Red Blood Count 4.47 M/uL (4.20-5.40); White Blood Count 22.06 K/ul (4.8-10.8)
[2023-10-01 07:48] LABS: BUN Creatinine Ratio 29.8 (10-20); Calcium 7.9 mg/dl (8.6-10.3); Creatinine Clr Calc Pharmacy 48.6 ml/min; Est GFR (African American) 65.5 ml/min; Est GFR (Non-African American) 56.5 ml/min; Potassium 3.6 mmol/L (3.5-5.1)
--- NOTE | 2023-10-01 07:58 | XRay Report ---
XR chest 1V portable HISTORY: Shortness of breath. pleural effusion COMPARISON: Chest 09/29/2023. FINDINGS: No pneumothorax. There are low lung volumes. A small right pleural effusion and patchy righ t basilar densities have slightly improved. Small linear density within the left lung base favor subs egmental atelectasis or scarring. This is similar to the prior study. No evidence for bone edema. Sta ble calcified granuloma within the right upper lobe. A right subclavian Port-A-Cath terminates in the SVC. The heart is stable in size. 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 IMPRESSION: Slight improvement in the small right pleural effusion and right basilar densities. ACT 112: Negative or not required by law. Electronically signed by: Edgardo Johnston M.D. 10/01/2023 7:56 AM
[2023-10-01] MEDS: hydroCHLOROthiazide 25 MG TAB PO SCH (08:37)
[2023-10-01] MEDS: DICLOFENAC SOD 1% GEL 100 GM TUBE EXT SCH (13:33)
[2023-10-01] MEDS: FUROSEMIDE INJ 20 MG/2 ML VIAL IV ONE (14:55)
--- NOTE | 2023-10-01 16:19 | Hospitalist Progress Note ---
Date of Service October 01, 2023 Assessment & Plan (1) Pleural effusion: Plan: Sepsis due to Pneumonia-POA Right pleural effusion chronic per family--parapneumonic effusion Vs secondary to lung malignancy H/O lung Cancer --CXR:Bilateral pleural effusions and right lower lung airspace opacity are increased from prior exam. --Negative BioFire --ECHO: Left ventricle is normal in size. Moderate concentric LVH (, mostly normal. EF 55 to 60%. Grade 1 diastolic dysfunction. -- Blood cultures: No growth to date Empirically on cefepime, doxycycline Lasix as needed Hold HCTZ Will consider ID evaluation if no improvement Repeat chest x-ray today showed Slight improvement in the small right pleural effusion and right basilar densities. Leukocytosis trending down PT OT eval was able Left knee pain Likely musculoskeletal No significant tenderness on exam No erythema, swelling Will try Voltaren gel Will consider imaging if needed Paroxysmal atrial fibrillation -- Normal TSH --Echo as above --Continue metoprolol On Eliquis for anticoagulation Appreciate cardiology input Metastatic disease: H/O multiple malignancies including lung cancer with recurrence and subsequent treatment Uterine cancer S/P hysterectomy Left breast cancer S/P lumpectomy H/O Skin Cancer Metastatic disease to Liver and bone Liver biopsy done as outpatient: Consistent with metastatic disease, lung primary --CT ABD: Multifocal lesions concerning for metastatic disease noted in the liver, spleen, possibly right adrenal gland, and skeleton. No acute abnormalities to explain fever and nausea. In particular the appendix is normal and there is no evidence of bowel obstruction. Right pleural effusion is nonspecific but malignant effusion cannot be excluded. -- Appreciate palliative care input --Needs follow-up with oncology on discharge Ongoing nausea Likely due to above Monitor and replete electrolytes as needed Antiemetics as needed HTN Continue lisinopril, metoprolol Resume HCTZ as able Monitor BP NAYA on CPAP HS H/O PE/DVT on Eliquis DVT prophylaxis On Eliquis CODE STATUS Full Code Disposition PT OT prior to discharge Admission and Anticipated Discharge Date Admission Date: September 27, 2023 Subjective Patient is seen and examined at bedside Reports chronic nausea Also reports left knee pain today Cough, dyspnea about the same as yesterday per patient Saturating well on room air No other complaints Review of Systems Review of Systems: All systems reviewed & are unremarkable except as noted in Subjective Physical Exam Physical Exam: Physical Exam: Vitals signs as noted above General Appearance:Obese, no apparent distress Head: normocephalic, Atraumatic Eyes: normal inspection, EOMI Neck: supple, Trachea midline Respiratory/Chest: Decreased breath sounds, +Basal rales, No accessory muscle use, +R chemo port Cardiovascular: S1, S2, No murmur Abdomen/GI:Soft, Non tender, Bowel sounds present Extremities/Musculoskeletal:normal inspection, no edema Neurologic/Psych:AAOX3, grossly no focal neurological deficits Skin: normal color, warm Results & Data Results & Data Vital Signs (Past 12 Hours) Vital Signs Temp Pulse Pulse Pulse Resp BP Pulse Ox 10/01/23 15:49 37.1 C 91 H 21 114/80 94 10/01/23 13:31 107 H 10/01/23 10:46 37.0 C 93 H 21 143/93 H 94 10/01/23 08:01 37.3 C 85 22 137/74 94 10/01/23 08:00 95 H 10/01/23 08:00 10/01/23 05:34 88 150/81 H O2 Del Method 10/01/23 15:49 Room Air 10/01/23 13:31 10/01/23 10:46 Room Air 10/01/23 08:01 Room Air 10/01/23 08:00 10/01/23 08:00 Room Air 10/01/23 05:34 Laboratory Results Short CBC 10/01/23 Range/Units 07:02 WBC 22.06 H (4.8-10.8) K/ul Hgb 13.0 (12.0-16.0) g/dl Hct 38.7 (37.0-47.0) % Plt Count 229 (130-400) K/uL BMP 10/01/23 07:02 Sodium 136 Potassium 3.6 Chloride 106 Carbon Dioxide 22 BUN 28 H Creatinine 0.94 Glucose 92 Calcium 7.9 L
[2023-10-02] MEDS ORDERED: traMADol HCL 50 MG TABLET PO PRN (04:58)
[2023-10-02] MEDS: NITROGLYCERIN SL 0.4 MG/TAB TAB ONE (04:58)
--- NOTE | 2023-10-02 04:58 | Communication Note ---
Date of Service: October 02, 2023 Patient with left-sided chest pain this a.m. as per RN. SBP 160s. Chest pain improved with nitroglycerin. EKG as per my interpretation: Rate 80, NSR, RAD, nonspecific T wave abnormalities Troponin 26.6 AP Chest pain Possibly from elevated BP Possible NSTEMI given nitro relief and troponin elevation Aspirin for CAD prevention Follow troponin N.p.o, hold Eliquis for now Defer decision regarding ischemic workup to AM provider (Palliative care consultation noted.)
[2023-10-02] MEDS: NITROGLYCERIN SL 0.4 MG/TAB TAB SL STA (05:30)
[2023-10-02 06:09] LABS: Basophils % (auto) 0.4 %; Eosinophils # (auto) 0.49 K/uL (0.00-0.50); Eosinophils % (auto) 2.1 %; Hematocrit (blood only) 35.7 % (37.0-47.0); Immature Granulocytes # (auto) 0.21 K/uL (0.01-0.20); Immature Granulocytes % (auto) 0.9 %; Lymphocytes # (auto) 2.36 K/uL (1.20-3.40); Lymphocytes % (auto) 10.3 %; Mean Corpuscular Hemoglobin 29.5 pg (25.0-34.0); Mean Corpuscular Hgb Conc 33.6 g/dL (32.0-36.0); Mean Corpuscular Volume 87.7 fL (80.0-100.0); Mean Platelet Volume 10.5 fL (9.4-12.4); Monocytes # (auto) 2.65 K/uL (0.11-0.59); Monocytes % (auto) 11.6 %; Neutrophils # (auto) 17.02 K/uL (1.40-6.50); Neutrophils % (auto) 74.7 %; Platelet Count 225 K/uL (130-400); RDW Coefficient of Variation 13.6 % (11.5-14.5); RDW Standard Deviation 43.7 fL (36.4-46.3); Red Blood Count 4.07 M/uL (4.20-5.40); White Blood Count 22.83 K/ul (4.8-10.8)
[2023-10-02 06:22] LABS: Albumin Globulin Ratio 1.4 (0.9-2); Albumin Level 3.2 gm/dl (3.4-5.0); BUN Creatinine Ratio 31.7 (10-20); Bilirubin,Total 1.2 mg/dl (0.2-1.0); Calcium 7.8 mg/dl (8.6-10.3); Creatinine Clr Calc Pharmacy 45.2 ml/min; Est GFR (Non-African American) 51.8 ml/min; Globulin 2.3 gm/dl (2.5-4.0); Potassium 3.3 mmol/L (3.5-5.1); Total Protein 5.5 gm/dl (6.0-8.3)
[2023-10-02 06:34] LABS: Troponin I High Sensitivity 26.6 pg/ml (0-14)
[2023-10-02] MEDS: POTASSIUM CHLORIDE CRTAB 20 MEQ TABCR PO STA (06:42)
[2023-10-02] MEDS: ASPIRIN 81 MG ECTAB PO STA (06:52)
[2023-10-02 07:46] LABS: Magnesium 2.1 mg/dl (1.7-2.4)
[2023-10-02 08:00] LABS: Troponin I High Sensitivity 16.8 pg/ml (0-14)
[2023-10-02 08:06] LABS: Partial Thromboplastin Ratio 1.2; Partial Thromboplastin Time 33 Seconds (21-31)
[2023-10-02] MEDS ORDERED: FUROSEMIDE 20 MG TAB PO SCH (09:00)
[2023-10-02] MEDS: POTASSIUM CHLORIDE CRTAB 20 MEQ TABCR PO ONE (09:11)
--- NOTE | 2023-10-02 12:27 | Electrocardiogram Report ---
Test Reason : Blood Pressure : / mmHG Vent. Rate : 080 BPM Atrial Rate : 080 BPM P-R Int : 142 ms QRS Dur : 086 ms QT Int : 388 ms P-R-T Axes : 082 172 116 degrees QTc Int : 447 ms Poor data quality, interpretation may be adversely affected Probable limb lead placement error Normal sinus rhythm Right axis deviation Pulmonary disease pattern Diffuse Minor Nonspecific T wave abnormality Poor R wave progression, consider anterior IA vs. lead placement vs. LVH Abnormal ECG When compared with ECG of 29-SEP-2023 06:24, QRS axis Shifted right (likely due to lead placement error) Confirmed by Holger Fierro ([id number]) on 10/02/2023 12:27:10 PM Referred By: REFERRED SELF Confirmed By:Holger Fierro
--- NOTE | 2023-10-02 13:53 | Palliative Care Progress Note ---
Date of Service October 02, 2023 Assessment & Plan (1) Dyspnea and respiratory abnormalities: (2) Weakness generalized: (3) Advanced care planning/counseling discussion: Plan: Face to Face ACP d/w , dtr in law and grand daughter x 45min at bedside.we spoke about rehab goals, timing for f/u with oncology and how PS will help guide decisions about chemo/no chemo/should chemo be dose modified etc. She is contemplating no code. We reviewed cpr survival. She tells me she has an advance directive and POA, dtr in law states the AD says chest compressions and defibrillator but no intubation. I recommended no code and she was in agreement. She had a lot of what if questions about rehab not helping or not being candidate for chemo. Extensive psychosocial support provided. Reassured she does not walk this path alone, we will all be helping her and will support her decisions.We reviewed alot of what-if scenarios, potential prognosis, the RT which was planned next week at [facility] and need for power port to be flushed (OP appt for 10/06/23 noted and family would like this done here at [facility] during admission/confirmed nursing can accomodate) and we agreed she will see me in OP c in two weeks and I will update Dr Linton as well. (4) Palliative care by specialist: (5) Metastatic disease: Plan As above Thank you for allowing us to participate in the ongoing care of this patient. Please don't hesitate to call or page with any additional concerns. Dr. Yenny Mann DNP Director, Palliative Care Admission and Anticipated Discharge Date Admission Date: September 27, 2023 Results & Data Vital Signs (Past 12 Hours) Vital Signs Temp Pulse Pulse Resp BP Pulse Ox O2 Del Method 10/02/23 11:16 36.7 C 80 20 135/76 96 Room Air 10/02/23 07:45 76 10/02/23 07:45 Room Air 10/02/23 07:43 36.4 C L 72 22 135/78 95 Room Air 10/02/23 06:02 131/63 10/02/23 05:12 123/59 L 10/02/23 04:58 175/80 H 10/02/23 02:15 36.6 C 73 18 156/79 H 96 Room Air Laboratory Results Abnormal lab results 10/02/23 10/02/23 Range/Units 05:22 07:04 WBC 22.83 H (4.8-10.8) K/ul RBC 4.07 L (4.20-5.40) M/uL Hct 35.7 L (37.0-47.0) % Neut # (Auto) 17.02 H (1.40-6.50) K/uL [place] # (Auto) 2.65 H (0.11-0.59) K/uL Immature Gran # (Auto) 0.21 H (0.01-0.20) K/uL APTT 33 H (21-31) Seconds Sodium 135 L (136-145) mmol/L Potassium 3.3 L (3.5-5.1) mmol/L Carbon Dioxide 20 L (21-32) mmol/L BUN 32 H (6-23) mg/dl BUN/Creatinine Ratio 31.7 H (10-20) Glucose 102 H (70-99(Fasting)) mg/dl Calcium 7.8 L (8.6-10.3) mg/dl Total Bilirubin 1.2 H (0.2-1.0) mg/dl Alkaline Phosphatase 250 H (34-104) U/L Troponin I High Sens 26.6 H D 16.8 H D (0-14) pg/ml Total Protein 5.5 L (6.0-8.3) gm/dl Albumin 3.2 L (3.4-5.0) gm/dl Globulin 2.3 L (2.5-4.0) gm/dl Diagnostic Findings Abdomen/Pelvis CT 09/27/23 14:24 CT abd pelvis IV con only CLINICAL HISTORY: fever, recent liver biopsy TECHNIQUE: Helical axial images of the abdomen and pelvis were obtained and displayed. Automated dose lowering techniques and/or adjustment according to patient size were utilized for this exam. This exam was performed with intravenous contrast. CT DOSE: 1176.11 mGy.cm COMPARISON: Comparison is made to CT abdomen pelvis 08/26/2015 FINDINGS: Lower chest: There is a small right pleural effusion with associated atelectasis. Cardiomegaly is seen. Liver: Innumerable, relatively hypoenhancing hepatic lesions are seen. Gallbladder and biliary tree: Cholelithiasis is seen without evidence of cholecystitis. No intra- or extrahepatic biliary ductal dilation. Pancreas: Fatty replacement of the pancreas is seen. Spleen: Mildly hypoenhancing splenic lesions are also seen. Adrenals: There is a right adrenal nodule measuring 14 mm in diameter, new from prior exam. Nodular thickening of the left adrenal gland is unchanged. Kidneys and ureters: Nonobstructive nephrolithiasis is seen. Bilateral renal cysts are seen. Bladder: Unremarkable. Reproductive organs: Patient is status post hysterectomy. Bowel: The appendix is normal. Lymph nodes Retroperitoneal: Unremarkable. Pelvic: Unremarkable. Mesenteric: Unremarkable. Peritoneum: Normal. Vessels: Unremarkable. Abdominal wall: Unremarkable. Bones: Degenerative changes in the visualized spine. Multiple sclerotic foci are seen in the skeleton. A left femoral nail is seen. IMPRESSION: 1. Multifocal lesions concerning for metastatic disease noted in the liver, spleen, possibly right adrenal gland, and skeleton. No acute abnormalities to explain fever and nausea. In particular the appendix is normal and there is no evidence of bowel obstruction. 2. Right pleural effusion is nonspecific but malignant effusion cannot be excluded. 3. Additional findings as above. ACT 112: Negative or not required by law. Electronically signed by: Antwon Greenberg M.D. 09/27/2023 4:17 PM Chest X-Ray 10/01/23 07:00 XR chest 1V portable HISTORY: Shortness of breath. pleural effusion COMPARISON: Chest 09/29/2023. FINDINGS: No pneumothorax. There are low lung volumes. A small right pleural effusion and patchy right basilar densities have slightly improved. Small linear density within the left lung base favor subsegmental atelectasis or scarring. This is similar to the prior study. No evidence for bone edema. Stable calcified granuloma within the right upper lobe. A right subclavian Port-A-Cath terminates in the SVC. The heart is stable in size. 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 IMPRESSION: Slight improvement in the small right pleural effusion and right basilar densities. ACT 112: Negative or not required by law. Electronically signed by: Edgardo Johnston M.D. 10/01/2023 7:56 AM PG Care Time/CCT Total # of Minutes Spent Total Time Spent with Patient: Total time spent is greater than 50% in coordination of care (as documented) at patient's floor/unit and/or counseling patient: I spent 85 minutes overall addressing this case: 5 min in medical data review/discussion with referring provider(s) and/or preparation for the visit 15 min in direct interaction with the patient/exam 45 min in Advance Care Planning/Goals of Care discussions as detailed above in note (must be >16min) 5 min in subsequent review and synthesis of assessment and plan 15 min communicating with other providers regarding the patient's case: primary team, nursing Advanced Care Planning 24282 Advanced Care Planning 30 Min 76324 Advanced Care Planning Additional 30 Min [place] [address] SUB INP/OBS CARE 3/50MIN (25 - SIGNIFICANT, SEPARATELY IDENTIFIABLE ) Patient Type Established Medical Decision Making High Complexity Diagnoses Dyspnea and respiratory abnormalities R06.00; R06.89 Weakness generalized R53.1 Advanced care planning/counseling discussion Z71.89 Palliative care by specialist Z51.5 Metastatic disease C79.9 Additional Codes Advanced Care Planning - 42681 Advanced Care Planning 30 Min: 07685 Advanced Care Planning 30 Min ([id number]) Advanced Care Planning - 03460 Advanced Care Planning Additional 30 Min: 68131 Advanced Care Planning Additional 30 Min ([id number])
[2023-10-02] MEDS: hydrALAZINE 10 MG TAB PO PRN (17:24)
--- NOTE | 2023-10-02 17:52 | Hospitalist Progress Note ---
Date of Service October 02, 2023 Assessment & Plan (1) Pleural effusion: Plan: Sepsis due to Pneumonia-POA Right pleural effusion chronic per family--parapneumonic effusion Vs secondary to lung malignancy H/O lung Cancer --CXR:Bilateral pleural effusions and right lower lung airspace opacity are increased from prior exam. --Negative BioFire --ECHO: Left ventricle is normal in size. Moderate concentric LVH (, mostly normal. EF 55 to 60%. Grade 1 diastolic dysfunction. -- Blood cultures: No growth to date Empirically on cefepime, doxycycline Resume HCTZ in AM Repeat chest x-ray showed Slight improvement in the small right pleural effusion and right basilar densities. Transition to p.o. antibiotics tomorrow Plan to discharge to rehab facility as able Saturating well on room air Atypical chest pain No significant troponin elevation EKG showed diffuse nonspecific T wave abnormality Limited echo ordered to assess wall motion abnormality Blood pressure likely contributing Added hydralazine as needed Currently asymptomatic Monitor Left knee pain Likely musculoskeletal No significant tenderness on exam No erythema, swelling Continue Voltaren gel PRN Paroxysmal atrial fibrillation -- Normal TSH --Echo as above --Continue metoprolol On Eliquis for anticoagulation Appreciate cardiology input Metastatic disease: H/O multiple malignancies including lung cancer with recurrence and subsequent treatment Uterine cancer S/P hysterectomy Left breast cancer S/P lumpectomy H/O Skin Cancer Metastatic disease to Liver and bone Liver biopsy done as outpatient: Consistent with metastatic disease, lung primary --CT ABD: Multifocal lesions concerning for metastatic disease noted in the liver, spleen, possibly right adrenal gland, and skeleton. No acute abnormalities to explain fever and nausea. In particular the appendix is normal and there is no evidence of bowel obstruction. Right pleural effusion is nonspecific but malignant effusion cannot be excluded. -- Appreciate palliative care input --Needs follow-up with oncology on discharge Ongoing nausea Likely due to above Monitor and replete electrolytes as needed Antiemetics as needed HTN Continue lisinopril, metoprolol, amlodipine Resume HCTZ Hydralazine as needed Monitor BP NAYA on CPAP HS H/O PE/DVT on Eliquis DVT prophylaxis On Eliquis CODE STATUS Full Code Disposition Rehab when accepted Admission and Anticipated Discharge Date Admission Date: September 27, 2023 Subjective Patient is seen and examined at bedside Reports having sharp left-sided transient chest pain overnight, resolved this morning No significant rise in troponin Otherwise no complaints today Reports chronic nausea No significant cough, dyspnea today Discussed with palliative care today Review of Systems Review of Systems: All systems reviewed & are unremarkable except as noted in Subjective Physical Exam Physical Exam: Physical Exam: Vitals signs as noted above General Appearance:Obese, no apparent distress Head: normocephalic, Atraumatic Eyes: normal inspection, EOMI Neck: supple, Trachea midline Respiratory/Chest: Decreased breath sounds, +Basal rales, No accessory muscle use, +R chemo port Cardiovascular: S1, S2, No murmur Abdomen/GI:Soft, Non tender, Bowel sounds present Extremities/Musculoskeletal:normal inspection, no edema Neurologic/Psych:AAOX3, grossly no focal neurological deficits Skin: normal color, warm Results & Data Results & Data Vital Signs (Past 12 Hours) Vital Signs Temp Pulse Pulse Resp BP Pulse Ox O2 Del Method 10/02/23 16:06 36.9 C 95 H 21 170/84 H 95 Room Air 10/02/23 11:16 36.7 C 80 20 135/76 96 Room Air 10/02/23 07:45 76 10/02/23 07:45 Room Air 10/02/23 07:43 36.4 C L 72 22 135/78 95 Room Air 10/02/23 06:02 131/63 Laboratory Results Short CBC 10/02/23 Range/Units 05:22 WBC 22.83 H (4.8-10.8) K/ul Hgb 12.0 (12.0-16.0) g/dl Hct 35.7 L (37.0-47.0) % Plt Count 225 (130-400) K/uL BMP 10/02/23 10/02/23 05:22 14:23 Sodium 135 L Potassium 3.3 L 3.7 Chloride 105 Carbon Dioxide 20 L BUN 32 H Creatinine 1.01 Glucose 102 H Calcium 7.8 L Liver Function 10/02/23 Range/Units 05:22 Total Bilirubin 1.2 H (0.2-1.0) mg/dl AST 31 (13-39) U/L ALT 27 (7-52) U/L Alkaline Phosphatase 250 H (34-104) U/L Albumin 3.2 L (3.4-5.0) gm/dl
--- NOTE | 2023-10-02 20:16 | Communication Note ---
Date of Service: October 02, 2023 Code cristal called around 7:50 PM Patient was on the commode when she went into rapid A-fib., Heart rate 200s, SBP 160s. Patient denies headache, chest pain, SOB, abdominal pain. New posterior neck pain symptoms. AP Rapid A-fib Uncontrolled hypertension Neck pain IV Lopressor 1 dose now Titrate maintenance oral beta-bernard CT neck once heart rate controlled given Eliquis Rx Palliative care note today reviewed. "She is contemplating no code. We reviewed cpr survival. She tells me she has an advance directive and POA, dtr in law states the AD says chest compressions and defibrillator but no intubation. I recommended no code and she was in agreement. " Patient still full code as per EMR. Palliative care discussion regarding CODE STATUS clarified with patient. Patient requested I contact her family as [id number] was present during conversation with palliative care provider as well. Patient family updated of developments and queried regarding regarding patient CODE STATUS and consideration of palliative care note documentation. Full CODE STATUS for now until further discussion between AM provider and patient/family today.
[2023-10-02] MEDS: dilTIAZem HCl 5 MG/ML 5 ML VIAL IV STA (20:31)
[2023-10-02] MEDS: MoRPHine SULFATE 2 MG/ML CARP IV STA (20:31)
[2023-10-02] MEDS: dilTIAZem HCl 5 MG/ML 5 ML VIAL IV ONE (20:38)
[2023-10-02] MEDS: POTASSIUM CHLORIDE / WTR 10 MEQ/100 ML PLCT IV SCH (21:02)
[2023-10-02] MEDS: METOPROLOL TARTRATE 1 MG/ML VIAL IV STA (21:58)
--- NOTE | 2023-10-03 00:25 | CT Scan Report ---
Exam(s): CT C SPINE EXAM: CT Cervical Spine Without Intravenous Contrast CLINICAL HISTORY: Reason for exam: neck pain, eliquis. TECHNIQUE: Axial computed tomography images of the cervical spine without intravenous contrast. CTDI is 19.12 mGy and DLP is 342.65 mGy-cm. Automated exposure control was utilized for the study. A dose lowering technique was utilized adhering to the principles of ALARA. COMPARISON: No relevant prior studies available. FINDINGS: The vertebral body heights are maintained. The craniocervical junction is intact. The atlanto-dens interval is maintained. The dens is intact. There is no spondylolisthesis. Multilevel cervical spondylosis and degenerative disc disease. Straightening of the cervical lordosis. The unenhanced neck soft tissues are grossly unremarkable. The visualized lung apices are grossly clear. IMPRESSION: No acute fracture or subluxation of the cervical spine. Electronically signed by: Chidi Durant MD 10/03/23 00:24 AM
[2023-10-03] MEDS: POTASSIUM CHLORIDE CRTAB 20 MEQ TABCR PO STA (00:41)
[2023-10-03 06:58] LABS: BUN Creatinine Ratio 32.4 (10-20); Calcium 7.7 mg/dl (8.6-10.3); Creatinine Clr Calc Pharmacy 61.7 ml/min; Est GFR (African American) 87.4 ml/min; Est GFR (Non-African American) 75.4 ml/min
[2023-10-03] MEDS: ASPIRIN 81 MG ECTAB PO SCH (09:27)
[2023-10-03] MEDS: METOPROLOL SUCC 50MG EXT REL TAB PO SCH (09:28)
[2023-10-03] MEDS: LABETALOL HCL IV 5 MG/ML 20ML IV PRN (10:35)
--- NOTE | 2023-10-03 15:21 | Communication Note ---
Date of Service: October 03, 2023 Discussed with patient's family and patient in detail today. Patient and patient's family prefers patient's CODE STATUS changed to DO NOT INTUBATE only. Plans to discuss further with palliative care on Thursday to address goals of care.
--- NOTE | 2023-10-03 17:22 | Hospitalist Progress Note ---
Date of Service October 03, 2023 Assessment & Plan (1) Pleural effusion: Plan: Sepsis due to Pneumonia-POA Right pleural effusion chronic per family--parapneumonic effusion Vs secondary to lung malignancy H/O lung Cancer --CXR:Bilateral pleural effusions and right lower lung airspace opacity are increased from prior exam. --Repeat chest x-ray showed Slight improvement in the small right pleural effusion and right basilar densities. --Negative BioFire --ECHO: Left ventricle is normal in size. Moderate concentric LVH (, mostly normal. EF 55 to 60%. Grade 1 diastolic dysfunction. -- Blood cultures: No growth to date Empirically on cefepime, doxycycline>> transition to cefdinir, doxycycline to complete the course continue HCTZ Plan to discharge to rehab facility as able Atypical chest pain No significant troponin elevation EKG showed diffuse nonspecific T wave abnormality Limited echo ordered to assess wall motion abnormality Blood pressure likely contributing Added IV labetalol as needed Continue amlodipine, metoprolol, HCTZ, Lisinopril Currently asymptomatic Monitor Left knee pain Likely musculoskeletal No significant tenderness on exam No erythema, swelling Continue Voltaren gel PRN Paroxysmal atrial fibrillation -- Normal TSH --Echo as above --Continue metoprolol On Eliquis for anticoagulation Appreciate cardiology input Metastatic disease: H/O multiple malignancies including lung cancer with recurrence and subsequent treatment Uterine cancer S/P hysterectomy Left breast cancer S/P lumpectomy H/O Skin Cancer Metastatic disease to Liver and bone Liver biopsy done as outpatient: Consistent with metastatic disease, lung primary --CT ABD: Multifocal lesions concerning for metastatic disease noted in the liver, spleen, possibly right adrenal gland, and skeleton. No acute abnormalities to explain fever and nausea. In particular the appendix is normal and there is no evidence of bowel obstruction. Right pleural effusion is nonspecific but malignant effusion cannot be excluded. -- Appreciate palliative care input --Needs follow-up with oncology on discharge Ongoing nausea Likely due to above Monitor and replete electrolytes as needed Antiemetics as needed HTN Continue lisinopril, metoprolol, amlodipine, HCTZ Hydralazine as needed Monitor BP Chronic nausea Likely secondary to malignancy Antiemetics as needed Dietitian consulted to help with nutritional assessment Continue nutritional supplements NAYA on CPAP HS H/O PE/DVT on Eliquis DVT prophylaxis On Eliquis CODE STATUS DNI only Disposition Rehab when accepted Admission and Anticipated Discharge Date Admission Date: September 27, 2023 Subjective Patient is seen and examined at bedside Patient went into A-fib RVR overnight and in sinus this morning during my encounter Discussed with patient's family at bedside in detail States feeling tired today Also reports some neck pain associated with headache today No other complaints Review of Systems Review of Systems: All systems reviewed & are unremarkable except as noted in Subjective Physical Exam Physical Exam: Physical Exam: Vitals signs as noted above General Appearance:Obese, no apparent distress Head: normocephalic, Atraumatic Eyes: normal inspection, EOMI Neck: supple, Trachea midline Respiratory/Chest: Decreased breath sounds, +Basal rales, No accessory muscle use, +R chemo port Cardiovascular: S1, S2, No murmur Abdomen/GI:Soft, Non tender, Bowel sounds present Extremities/Musculoskeletal:normal inspection, no edema Neurologic/Psych:AAOX3, grossly no focal neurological deficits Skin: normal color, warm Results & Data Results & Data Vital Signs (Past 12 Hours) Vital Signs Temp Pulse Pulse Pulse Resp BP BP 10/03/23 15:54 37.0 C 87 19 144/87 H 10/03/23 10:51 84 133/79 10/03/23 10:50 36.7 C 84 16 133/79 10/03/23 10:23 36.6 C 83 16 189/89 H 10/03/23 09:20 115 H 162/90 H 10/03/23 07:56 37.1 C 103 H 20 156/90 H 10/03/23 07:45 106 H Pulse Ox O2 Del Method 10/03/23 15:54 93 Room Air 10/03/23 10:51 10/03/23 10:50 95 Room Air 10/03/23 10:23 95 Room Air 10/03/23 09:20 10/03/23 07:56 95 Room Air 10/03/23 07:45 Laboratory Results BMP 10/03/23 05:53 Sodium 138 Potassium 4.0 Chloride 109 H Carbon Dioxide 22 BUN 24 H Creatinine 0.74 Glucose 90 Calcium 7.7 L
[2023-10-03] MEDS: CEFDINIR 300 MG CAP PO SCH (19:52)
[2023-10-04 06:24] LABS: Hematocrit (blood only) 35.3 % (37.0-47.0); Hemoglobin 12.2 g/dl (12.0-16.0); Mean Corpuscular Hemoglobin 29.8 pg (25.0-34.0); Mean Corpuscular Hgb Conc 34.6 g/dL (32.0-36.0); Mean Corpuscular Volume 86.1 fL (80.0-100.0); Mean Platelet Volume 10.1 fL (9.4-12.4); Platelet Count 267 K/uL (130-400); RDW Coefficient of Variation 14.5 % (11.5-14.5); RDW Standard Deviation 45.4 fL (36.4-46.3); White Blood Count 21.77 K/ul (4.8-10.8)
[2023-10-04 06:59] LABS: BUN Creatinine Ratio 30.2 (10-20); Creatinine Clr Calc Pharmacy 53.1 ml/min; Est GFR (African American) 72.9 ml/min; Est GFR (Non-African American) 62.9 ml/min; Potassium 3.5 mmol/L (3.5-5.1)
[2023-10-04] MEDS ORDERED: HEPARIN 100 UNIT/ML 5ML FLUSH FLUSH PRN (08:29)
--- NOTE | 2023-10-04 15:36 | Hospitalist Progress Note ---
Date of Service October 04, 2023 Assessment & Plan (1) Pleural effusion: Plan: Sepsis due to Pneumonia-POA Right pleural effusion chronic per family--parapneumonic effusion Vs secondary to lung malignancy H/O lung Cancer --CXR:Bilateral pleural effusions and right lower lung airspace opacity are increased from prior exam. --Repeat chest x-ray showed Slight improvement in the small right pleural effusion and right basilar densities. --Negative BioFire --ECHO: Left ventricle is normal in size. Moderate concentric LVH (, mostly normal. EF 55 to 60%. Grade 1 diastolic dysfunction. -- Blood cultures: No growth to date Empirically on cefepime, doxycycline>> transition to cefdinir, doxycycline to complete the course continue HCTZ Plan to discharge to rehab facility as able We will recheck chest x-ray tomorrow to assess volume status and pneumonia Procalcitonin normalized Rehab when accepted Atypical chest pain No significant troponin elevation EKG showed diffuse nonspecific T wave abnormality Limited echo ordered to assess wall motion abnormality Blood pressure likely contributing Added IV labetalol as needed Continue amlodipine, metoprolol, HCTZ, Lisinopril Currently asymptomatic Monitor Left knee pain Likely musculoskeletal No significant tenderness on exam No erythema, swelling Continue Voltaren gel PRN Paroxysmal atrial fibrillation -- Normal TSH --Echo as above --Continue metoprolol On Eliquis for anticoagulation Appreciate cardiology input Metastatic disease: H/O multiple malignancies including lung cancer with recurrence and subsequent treatment Uterine cancer S/P hysterectomy Left breast cancer S/P lumpectomy H/O Skin Cancer Metastatic disease to Liver and bone Liver biopsy done as outpatient: Consistent with metastatic disease, lung primary --CT ABD: Multifocal lesions concerning for metastatic disease noted in the liver, spleen, possibly right adrenal gland, and skeleton. No acute abnormalities to explain fever and nausea. In particular the appendix is normal and there is no evidence of bowel obstruction. Right pleural effusion is nonspecific but malignant effusion cannot be excluded. 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 HTN Continue lisinopril, metoprolol, amlodipine, HCTZ IV labetalol as needed Monitor BP NAYA on CPAP HS H/O PE/DVT on Eliquis DVT prophylaxis On Eliquis CODE STATUS DNI only Disposition Rehab when accepted Admission and Anticipated Discharge Date Admission Date: September 27, 2023 Subjective Patient is seen and examined at bedside Remains in sinus today States having some discomfort on posterior side of neck and hip Had 1 loose BM today Has chronic nausea Reports some dyspnea on exertion No other complaints Review of Systems Review of Systems: All systems reviewed & are unremarkable except as noted in Subjective Physical Exam Physical Exam: Physical Exam: Vitals signs as noted above General Appearance:Obese, no apparent distress Head: normocephalic, Atraumatic Eyes: normal inspection, EOMI Neck: supple, Trachea midline Respiratory/Chest: Decreased breath sounds, +Basal rales, No accessory muscle use, +R chemo port Cardiovascular: S1, S2, No murmur Abdomen/GI:Soft, Non tender, Bowel sounds present Extremities/Musculoskeletal:normal inspection, no edema Neurologic/Psych:AAOX3, grossly no focal neurological deficits Skin: normal color, warm Results & Data Results & Data Vital Signs (Past 12 Hours) Vital Signs Temp Pulse Pulse Resp BP Pulse Ox O2 Del Method 10/04/23 11:32 36.8 C 75 20 146/81 H 94 Room Air 10/04/23 09:16 36.7 C 73 16 136/69 95 Room Air 10/04/23 08:10 80 10/04/23 07:30 36.8 C 85 19 173/98 H 93 Room Air 10/04/23 07:30 88 10/04/23 07:30 Room Air 10/04/23 04:31 36.8 C 80 17 136/72 96 Room Air Laboratory Results Short CBC 10/04/23 Range/Units 05:34 WBC 21.77 H (4.8-10.8) K/ul Hgb 12.2 (12.0-16.0) g/dl Hct 35.3 L (37.0-47.0) % Plt Count 267 (130-400) K/uL BMP 10/04/23 05:34 Sodium 138 Potassium 3.5 Chloride 107 Carbon Dioxide 23 BUN 26 H Creatinine 0.86 Glucose 89 Calcium 8.0 L
--- NOTE | 2023-10-04 19:51 | Electrocardiogram Report ---
Test Reason : Blood Pressure : / mmHG Vent. Rate : 180 BPM Atrial Rate : 174 BPM P-R Int : 000 ms QRS Dur : 072 ms QT Int : 250 ms P-R-T Axes : 000 -02 265 degrees QTc Int : 432 ms Poor data quality, interpretation may be adversely affected Atrial fibrillation with rapid ventricular response Nonspecific ST and T wave abnormality Abnormal ECG When compared with ECG of 02-OCT-2023 04:42, Atrial fibrillation has replaced Sinus rhythm Vent. rate has increased BY 100 BPM QRS axis Shifted left ST now depressed in Anterolateral leads Confirmed by Vega Nnuez ([id number]) on 10/04/2023 7:50:42 PM Referred By: REFERRED SELF Confirmed By:Vega Nunez
[2023-10-04] MEDS: MIRTAZAPINE TAB 15 MG TAB PO SCH (20:04)
--- NOTE | 2023-10-05 06:17 | Electrocardiogram Report ---
Test Reason : Blood Pressure : / mmHG Vent. Rate : 097 BPM Atrial Rate : 097 BPM P-R Int : 136 ms QRS Dur : 084 ms QT Int : 360 ms P-R-T Axes : 032 -02 025 degrees QTc Int : 457 ms Normal sinus rhythm Normal ECG When compared with ECG of 02-OCT-2023 19:57, Sinus rhythm has replaced Atrial fibrillation Vent. rate has decreased BY [address] no longer depressed in Anterolateral leads Confirmed by Vega Nunez ([id number]) on 10/05/2023 6:17:33 AM Referred By: REFERRED SELF Confirmed By:Vega Nunez
[2023-10-05 06:29] LABS: BUN Creatinine Ratio 30.8 (10-20); Calcium 8.3 mg/dl (8.6-10.3); Creatinine Clr Calc Pharmacy 58.6 ml/min; Est GFR (African American) 82.1 ml/min; Est GFR (Non-African American) 70.8 ml/min; Potassium 3.3 mmol/L (3.5-5.1)
--- NOTE | 2023-10-05 07:47 | XRay Report ---
XR chest 1V portable HISTORY: pleural effusion COMPARISON: Chest 10/01/2023. FINDINGS: No pneumothorax. A right subclavian Port-A-Cath runs at the SVC. The heart remains mildly e nlarged. Small right pleural effusion and right mid to lower lung zone densities persist. 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 The left lung is essentially clear. There is mild central pul monary vascular congestion without overt edema. Stable calcified granuloma within the right upper lob e. There are suture material within the right lung consistent with postoperative change. IMPRESSION: No significant change in the small right pleural effusion and right basilar densities. ACT 112: Negative or not required by law. Electronically signed by: Edgardo Johnston M.D. 10/05/2023 7:45 AM
[2023-10-05] MEDS: POTASSIUM CHLORIDE CRTAB 20 MEQ TABCR PO ONE (10:16)
[2023-10-05] MEDS: PROMETHAZINE HCL 6.25 MG in SODIUM CHLORIDE 0.9% 50 ML IV PRN (10:16)
[2023-10-05] MEDS: POTASSIUM CHLORIDE 20 MEQ/15 ML UDC PO ONE (11:41)
--- NOTE | 2023-10-05 17:22 | Hospitalist Progress Note ---
Date of Service October 05, 2023 Assessment & Plan (1) Pleural effusion: Plan: Sepsis due to Pneumonia-POA Right pleural effusion chronic per family--parapneumonic effusion Vs secondary to lung malignancy H/O lung Cancer --CXR:Bilateral pleural effusions and right lower lung airspace opacity are increased from prior exam. --Repeat chest x-ray showed Slight improvement in the small right pleural effusion and right basilar densities. --Negative BioFire --ECHO: Left ventricle is normal in size. Moderate concentric LVH (, mostly normal. EF 55 to 60%. Grade 1 diastolic dysfunction. -- Blood cultures: No growth to date Empirically on cefepime, doxycycline>> transition to cefdinir, doxycycline to complete the course continue HCTZ Plan to discharge to rehab facility as able Procalcitonin normalized Repeat chest x-ray unchanged Waiting for rehab placement Atypical chest pain No significant troponin elevation EKG showed diffuse nonspecific T wave abnormality Limited echo ordered to assess wall motion abnormality Blood pressure likely contributing Added IV labetalol as needed Continue amlodipine, metoprolol, HCTZ, Lisinopril Currently asymptomatic Monitor Left knee pain Likely musculoskeletal No significant tenderness on exam No erythema, swelling Continue Voltaren gel PRN Paroxysmal atrial fibrillation -- Normal TSH --Echo as above --Continue metoprolol On Eliquis for anticoagulation Appreciate cardiology input Metastatic disease: H/O multiple malignancies including lung cancer with recurrence and subsequent treatment Uterine cancer S/P hysterectomy Left breast cancer S/P lumpectomy H/O Skin Cancer Metastatic disease to Liver and bone Liver biopsy done as outpatient: Consistent with metastatic disease, lung primary --CT ABD: Multifocal lesions concerning for metastatic disease noted in the liver, spleen, possibly right adrenal gland, and skeleton. No acute abnormalities to explain fever and nausea. In particular the appendix is normal and there is no evidence of bowel obstruction. Right pleural effusion is nonspecific but malignant effusion cannot be excluded. 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 HTN Continue lisinopril, metoprolol, amlodipine, HCTZ IV labetalol as needed Monitor BP NAYA on CPAP HS H/O PE/DVT on Eliquis DVT prophylaxis On Eliquis CODE STATUS DNI only Disposition Rehab when accepted Admission and Anticipated Discharge Date Admission Date: September 27, 2023 Subjective Patient is seen and examined at bedside Feels very tired this morning Discussed with patient's family at bedside Appetite slowly improving Reports chronic nausea Also has some dyspnea intermittently No other complaints Review of Systems Review of Systems: All systems reviewed & are unremarkable except as noted in Subjective Physical Exam Physical Exam: Physical Exam: Vitals signs as noted above General Appearance:Obese, no apparent distress Head: normocephalic, Atraumatic Eyes: normal inspection, EOMI Neck: supple, Trachea midline Respiratory/Chest: Decreased breath sounds, +Basal rales, No accessory muscle use, +R chemo port Cardiovascular: S1, S2, No murmur Abdomen/GI:Soft, Non tender, Bowel sounds present Extremities/Musculoskeletal:normal inspection, no edema Neurologic/Psych:AAOX3, grossly no focal neurological deficits Skin: normal color, warm Results & Data Results & Data Vital Signs (Past 12 Hours) Vital Signs Temp Pulse Resp BP Pulse Ox O2 Del Method 10/05/23 15:51 36.6 C 77 21 139/81 94 Room Air 10/05/23 12:48 36.6 C 80 21 143/80 H 95 Room Air 10/05/23 08:07 36.6 C 81 23 158/77 H 92 Room Air Laboratory Results BMP 10/05/23 05:51 Sodium 139 Potassium 3.3 L Chloride 106 Carbon Dioxide 24 BUN 24 H Creatinine 0.78 Glucose 89 Calcium 8.3 L
[2023-10-06 06:42] LABS: Hematocrit (blood only) 37.3 % (37.0-47.0); Hemoglobin 12.5 g/dl (12.0-16.0); Mean Corpuscular Hemoglobin 29.2 pg (25.0-34.0); Mean Corpuscular Hgb Conc 33.5 g/dL (32.0-36.0); Mean Corpuscular Volume 87.1 fL (80.0-100.0); Mean Platelet Volume 9.6 fL (9.4-12.4); Platelet Count 360 K/uL (130-400); RDW Coefficient of Variation 14.8 % (11.5-14.5); RDW Standard Deviation 47.6 fL (36.4-46.3); Red Blood Count 4.28 M/uL (4.20-5.40); White Blood Count 17.99 K/ul (4.8-10.8)
[2023-10-06 07:10] LABS: Calcium 8.3 mg/dl (8.6-10.3); Potassium 3.5 mmol/L (3.5-5.1)
[2023-10-06 07:16] LABS: Creatinine Clr Calc Pharmacy 48.8 ml/min; Est GFR (African American) 65.5 ml/min; Est GFR (Non-African American) 56.5 ml/min
--- NOTE | 2023-10-06 15:46 | Hospitalist Progress Note ---
Date of Service October 06, 2023 Assessment & Plan (1) Pleural effusion: Plan: Sepsis due to Pneumonia-POA Right pleural effusion chronic per family--parapneumonic effusion Vs secondary to lung malignancy H/O lung Cancer --CXR:Bilateral pleural effusions and right lower lung airspace opacity are increased from prior exam. --Repeat chest x-ray showed Slight improvement in the small right pleural effusion and right basilar densities. --Negative BioFire --ECHO: Left ventricle is normal in size. Moderate concentric LVH (, mostly normal. EF 55 to 60%. Grade 1 diastolic dysfunction. -- Blood cultures: No growth to date Empirically on cefepime, doxycycline>> transition to cefdinir, doxycycline to complete the course continue HCTZ Plan to discharge to rehab facility as able Procalcitonin normalized Leukocytosis trending down Clinically improving Waiting for rehab placement Case management to help with discharge planning Atypical chest pain No significant troponin elevation EKG showed diffuse nonspecific T wave abnormality Limited echo ordered to assess wall motion abnormality Blood pressure likely contributing Added IV labetalol as needed Continue amlodipine, metoprolol, HCTZ, Lisinopril Currently asymptomatic Monitor Left knee pain Likely musculoskeletal No significant tenderness on exam No erythema, swelling Continue Voltaren gel PRN Paroxysmal atrial fibrillation -- Normal TSH --Echo as above --Continue metoprolol On Eliquis for anticoagulation Appreciate cardiology input Metastatic disease: H/O multiple malignancies including lung cancer with recurrence and subsequent treatment Uterine cancer S/P hysterectomy Left breast cancer S/P lumpectomy H/O Skin Cancer Metastatic disease to Liver and bone Liver biopsy done as outpatient: Consistent with metastatic disease, lung primary --CT ABD: Multifocal lesions concerning for metastatic disease noted in the liver, spleen, possibly right adrenal gland, and skeleton. No acute abnormalities to explain fever and nausea. In particular the appendix is normal and there is no evidence of bowel obstruction. Right pleural effusion is nonspecific but malignant effusion cannot be excluded. 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 HTN Continue lisinopril, metoprolol, amlodipine, HCTZ IV labetalol as needed Monitor BP NAYA on CPAP HS H/O PE/DVT on Eliquis DVT prophylaxis On Eliquis CODE STATUS DNI only Disposition Rehab when accepted Admission and Anticipated Discharge Date Admission Date: September 27, 2023 Subjective Patient is seen and examined at bedside No new complaints Appetite continues to improve Denies any significant dyspnea Also denies any chest pain, abdominal pain Reports chronic nausea Waiting for rehab placement Review of Systems Review of Systems: All systems reviewed & are unremarkable except as noted in Subjective Physical Exam Physical Exam: Physical Exam: Vitals signs as noted above General Appearance:Obese, no apparent distress Head: normocephalic, Atraumatic Eyes: normal inspection, EOMI Neck: supple, Trachea midline Respiratory/Chest: Decreased breath sounds, +CTA, No accessory muscle use, +R chemo port Cardiovascular: S1, S2, No murmur Abdomen/GI:Soft, Non tender, Bowel sounds present Extremities/Musculoskeletal:normal inspection, no edema Neurologic/Psych:AAOX3, grossly no focal neurological deficits Skin: normal color, warm Results & Data Results & Data Vital Signs (Past 12 Hours) Vital Signs Temp Pulse Resp BP Pulse Ox O2 Del Method 10/06/23 15:32 36.8 C 80 18 121/75 94 Room Air 10/06/23 11:23 36.6 C 80 20 115/78 95 Room Air 10/06/23 07:37 36.8 C 85 25 H 134/76 92 Room Air Laboratory Results Short CBC 10/06/23 Range/Units 05:52 WBC 17.99 H (4.8-10.8) K/ul Hgb 12.5 (12.0-16.0) g/dl Hct 37.3 (37.0-47.0) % Plt Count 360 (130-400) K/uL BMP 10/06/23 05:52 Sodium 143 Potassium 3.5 Chloride 108 H Carbon Dioxide 26 BUN 31 H Creatinine 0.94 Glucose 91 Calcium 8.3 L
--- NOTE | 2023-10-07 06:49 | Communication Note ---
Date of Service: October 07, 2023 Prolonged QT on the monitor as per RN. 640 MS EKG now Check a.m. labs
[2023-10-07 06:57] LABS: Hematocrit (blood only) 35.4 % (37.0-47.0); Hemoglobin 12.1 g/dl (12.0-16.0); Mean Corpuscular Hemoglobin 29.7 pg (25.0-34.0); Mean Corpuscular Hgb Conc 34.2 g/dL (32.0-36.0); Mean Platelet Volume 9.8 fL (9.4-12.4); Platelet Count 386 K/uL (130-400); RDW Coefficient of Variation 14.8 % (11.5-14.5); RDW Standard Deviation 47.5 fL (36.4-46.3); Red Blood Count 4.07 M/uL (4.20-5.40); White Blood Count 20.08 K/ul (4.8-10.8)
[2023-10-07 07:14] LABS: BUN Creatinine Ratio 37.1 (10-20); Calcium 8.3 mg/dl (8.6-10.3); Creatinine Clr Calc Pharmacy 47.4 ml/min; Est GFR (Non-African American) 54.4 ml/min; Magnesium 1.9 mg/dl (1.7-2.4); Potassium 3.4 mmol/L (3.5-5.1)
--- NOTE | 2023-10-07 08:04 | Hospitalist Progress Note ---
Date of Service October 07, 2023 Assessment & Plan (1) Pleural effusion: Plan: Sepsis due to Pneumonia-POA Right pleural effusion chronic per family--parapneumonic effusion Vs secondary to lung malignancy H/O lung Cancer --CXR:Bilateral pleural effusions and right lower lung airspace opacity are increased from prior exam. --Repeat chest x-ray showed Slight improvement in the small right pleural effusion and right basilar densities. --Negative BioFire --ECHO: Left ventricle is normal in size. Moderate concentric LVH (, mostly normal. EF 55 to 60%. Grade 1 diastolic dysfunction. -- Blood cultures: No growth to date Empirically on cefepime, doxycycline>> transitioned to cefdinir, doxycycline to complete the course continue HCTZ Plan to discharge to rehab facility as able Procalcitonin normalized Leukocytosis - currently 20K - > will further discuss w/ ID (urine legionella ag ordered) Clinically improving Waiting for rehab placement Case management to help with discharge planning Atypical chest pain No significant troponin elevation EKG showed diffuse nonspecific T wave abnormality Limited echo ordered to assess wall motion abnormality Blood pressure likely contributing Added IV labetalol as needed Continue amlodipine, metoprolol, HCTZ, Lisinopril Currently asymptomatic Monitor Left knee pain Likely musculoskeletal No significant tenderness on exam No erythema, swelling Continue Voltaren gel PRN Paroxysmal atrial fibrillation -- Normal TSH --Echo as above --Continue metoprolol On Eliquis for anticoagulation Appreciate cardiology input Metastatic disease: H/O multiple malignancies including lung cancer with recurrence and subsequent treatment Uterine cancer S/P hysterectomy Left breast cancer S/P lumpectomy H/O Skin Cancer Metastatic disease to Liver and bone Liver biopsy done as outpatient: Consistent with metastatic disease, lung primary --CT ABD: Multifocal lesions concerning for metastatic disease noted in the liver, spleen, possibly right adrenal gland, and skeleton. No acute abnormalities to explain fever and nausea. In particular the appendix is normal and there is no evidence of bowel obstruction. Right pleural effusion is nonspecific but malignant effusion cannot be excluded. 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 HTN Continue lisinopril, metoprolol, amlodipine, HCTZ IV labetalol as needed Monitor BP NAYA on CPAP HS H/O PE/DVT on Eliquis DVT prophylaxis On Eliquis CODE STATUS DNI only Disposition Rehab when accepted Admission and Anticipated Discharge Date Admission Date: September 27, 2023 Subjective Patient is seen and examined at bedside Appetite continues to improve Denies any significant dyspnea Also denies any chest pain, abdominal pain Reports chronic nausea WBC 20 K - ID consulted - ordered urine legionella ag Pt's son present at the bedside and updated overnight concern for prolonged QT, ECG ordered by dedra arcos on hold for now (pt uses chronically) Review of Systems Review of Systems: All systems reviewed & are unremarkable except as noted in Subjective Physical Exam Physical Exam: General Appearance: Obese, elderly F in NAD Head: NC/AT Eyes: normal inspection, EOMI Neck: supple Respiratory/Chest: Decreased breath sounds, +CTA, No accessory muscle use, +R chemo port Cardiovascular: S1, S2, No murmur Abdomen/GI:Soft, Non tender, soft, Bowel sounds present Extremities/Musculoskeletal:normal inspection, no edema Neurologic/Psych:AAOX3, grossly no focal neurological deficits Skin: normal color, warm Results & Data Results & Data Vital Signs (Past 12 Hours) Vital Signs Temp Pulse Pulse Resp BP Pulse Ox O2 Del Method 10/07/23 02:38 36.7 C 76 18 142/81 H 96 Room Air 10/06/23 23:27 36.7 C 77 16 128/78 94 Room Air 10/06/23 22:00 82 Laboratory Results 10/07/23 Range/Units 06:00 WBC 20.08 H (4.8-10.8) K/ul RBC 4.07 L (4.20-5.40) M/uL Hgb 12.1 (12.0-16.0) g/dl Hct 35.4 L (37.0-47.0) % MCV 87.0 (80.0-100.0) fL MCH 29.7 (25.0-34.0) pg MCHC 34.2 (32.0-36.0) g/dL RDW Std Deviation 47.5 H (36.4-46.3) fL RDW Coeff of Thien 14.8 H (11.5-14.5) % Plt Count 386 (130-400) K/uL MPV 9.8 (9.4-12.4) fL Sodium 140 (136-145) mmol/L Potassium 3.4 L (3.5-5.1) mmol/L Chloride 107 (98-107) mmol/L Carbon Dioxide 25 (21-32) mmol/L Anion Gap 8 (3-11) BUN 36 H (6-23) mg/dl Creatinine 0.97 (0.6-1.2) mg/dl Est Cr Clr Drug Dosing 47.4 ml/min Est GFR ( Amer) 63.0 ml/min Est GFR (Non-Af Amer) 54.4 ml/min BUN/Creatinine Ratio 37.1 H (10-20) Glucose 97 (70-99(Fasting)) mg/dl Calcium 8.3 L (8.6-10.3) mg/dl Magnesium 1.9 (1.7-2.4) mg/dl
[2023-10-07 08:57] LABS: BUN Creatinine Ratio 36.4 (10-20); Calcium 8.2 mg/dl (8.6-10.3); Creatinine Clr Calc Pharmacy 46.4 ml/min; Est GFR (African American) 61.5 ml/min; Est GFR (Non-African American) 53.1 ml/min; Phosphorus 3.4 mg/dl (2.5-4.9); Potassium 3.2 mmol/L (3.5-5.1)
[2023-10-07] MEDS: POTASSIUM CHLORIDE PWD 20 MEQ PACK PO STA (09:34)
[2023-10-07] MEDS: guaiFENesin 600 MG TABCR PO SCH (09:36)
--- NOTE | 2023-10-07 13:11 | Infectious Disease Consult ---
Date of Service October 07, 2023 Telehealth Information I performed this visit using a real-time telehealth connection between my location and the patients location ([facility]). After connecting through interactive tele-video, patient was identified by name and date of and/or wristband check.Patient (or authorized healthcare product support representative) was informed that this was a telemedicine visit and it was being conducted confidentially over secure lines. My office door was closed and no one else was present in the room with me.Patient (or authorized healthcare product support representative) provided consent to proceed with the visit, expressed an understanding of privacy and security of the telemedicine visit, and gave permission to have a hospital product support representative in the room in order to assist with the visit and to conduct portions of the visit, as needed. I informed the patient (or authorized healthcare product support representative) that I reviewed their record and presented the opportunity for them to ask any questions regarding the visit today. The patient agreed to participate. Assessment & Plan (1) Metastatic disease: Plan: As per Oncology (2) Pleural effusion: Plan: Likely 2/2 malignancy (3) Malignancy: Plan: As per Oncology (4) Fever: Plan: Afebrile (5) Leukocytosis: Plan: trending down and likely related to her metastatic cancer Plan Patient with lung ,breast and uterine cancer with mets to liver and bone who presented with fever and was found to have leukocytosis .Her infectious work up has so far been negative and she was on cefepime and doxycycline and has been switched to cefdinir and doxycycline It is unclear if the right pleural effusion is secondary to an infection or to her malignancies and so would not recommend any further antibiotics .Consider testing for urine legionella and strep pneumoniae if there remains concern for a respiratory infection and respiratory cultures Thank you for allowing us to participate in the care of this patient ID will sign off History of Present Illness History of Present Illness 82-year-old female with significant past medical history of recurrent malignancy of the lung, history of uterine cancer, history of breast cancer, hypertension, NAYA on CPAP, history of pulmonary emboli , osteoarthritis and recent diagnosis of multiple metastasis under investigation apparently has been complaining of nausea and progressive weakness since beginning of the year. She was seen by her oncologist last Thursday and she has been waiting the results of the liver biopsy which was done about 1 week ago. She developed fever last evening with chills and the weakness got worse that she was in the ER today. Has cough without any phlegm and has minimal shortness of breath with exertion. Denies any chest pain, any palpitation, no abdominal pain but has nausea without vomiting. No anorexia and denies any significant weight loss. Noted to have high white count of 21,000 and chest x-ray did show possible right lower lobe infiltration with associated effusion. She started with intravenous cefepime and was admitted to medical telemetry unit for continuation of care. Allergies Allergy/AdvReac Type Severity Reaction Status Date / Time castor oil Allergy Severe ANAPHYLAXIS Verified 09/27/23 16:45 paclitaxel Allergy Severe ANAPHYLAXIS Verified 09/27/23 16:45 ciprofloxacin Allergy Intermediate HIVES/RASH Verified 09/27/23 16:45 codeine AdvReac Intermediate GI SYMPTOMS Verified 09/27/23 16:45 cyproheptadine AdvReac Intermediate LETHARGY Verified 09/27/23 16:45 doxepin AdvReac Intermediate LETHARGY Verified 09/27/23 16:45 gabapentin AdvReac Intermediate GI Verified 09/27/23 16:45 SYMPTOMS/"FEEL OUT OF IT" hydrocodone AdvReac Intermediate GI SYMPTOMS Verified 09/27/23 16:45 meloxicam AdvReac Intermediate DIZZINESS, Verified 09/27/23 16:45 HEADACHE, NAUSEA oxycodone AdvReac Intermediate GI SYMPTOMS Verified 09/27/23 16:45 prednisone AdvReac Intermediate ELEVATED Verified 09/27/23 16:46 GLUCOSE tramadol AdvReac Intermediate GI SYMPTOMS Verified 09/27/23 16:46 Home Medications Medication Instructions Recorded Confirmed Type albuterol sulfate 90 mcg/actuation 2 puff inhalation QID PRN SOB 06/23/18 09/27/23 History aerosol inhaler amlodipine 10 mg tablet 10 mg PO QAM 06/23/18 09/27/23 History atorvastatin 20 mg tablet 20 mg PO QAM 06/23/18 09/27/23 History colchicine 0.6 mg tablet 0.6 mg PO BID PRN GOUT 06/23/18 09/27/23 History metoprolol succinate 50 mg 50 mg PO QAM 06/23/18 09/27/23 History tablet,extended release 24 hr tizanidine 4 mg capsule 4 mg PO TID PRN MUSCLE SPASMS 06/23/18 09/27/23 History fluticasone propionate 50 2 spray intranasal HS Congestion 12/19/19 09/27/23 History mcg/actuation nasal spray,suspension ondansetron HCl 8 mg tablet 8 mg PO Q8H PRN Nausea 12/19/19 09/27/23 History prochlorperazine maleate 10 mg 10 mg PO Q6H PRN Nausea 12/19/19 09/27/23 History tablet apixaban 5 mg tablet (Eliquis) 5 mg PO BID 12/30/21 09/27/23 History famotidine 20 mg tablet (Pepcid) 20 mg PO BID PRN Heartburn 12/30/21 09/27/23 History amoxicillin 500 mg capsule 2,000 mg PO DIRECTED PRN 1 HR 09/27/23 09/27/23 History PRIOR TO DENTAL PROCEDURES cholecalciferol (vitamin D3) 50 2,000 unit PO DAILY 09/27/23 09/27/23 History mcg (2,000 unit) capsule (Vitamin D3) fexofenadine 180 mg tablet 180 mg PO DAILY PRN ALLERGY 09/27/23 09/27/23 History SYPMTOMS hydrochlorothiazide 12.5 mg tablet 12.5 mg PO QAM 09/27/23 09/27/23 History lisinopril 40 mg tablet 40 mg PO QAM 09/27/23 09/27/23 History magnesium oxide 400 mg PO DAILY 09/27/23 09/27/23 History meclizine 25 mg tablet 25 mg PO TID PRN Dizziness 09/27/23 09/27/23 History potassium citrate 10 mEq (1,080 10 meq PO BID 09/27/23 09/27/23 History mg) tablet,extended release Patient History Medical History History of Clostridioides difficile infection After abx, s/p vanco completed 12/31- diarrhea resolved per PAT visit 01/01 Pulmonary embolism 2020, reason for Eliquis; f/u dr morgan s once/year Sleep apnea Remote hx- no device currently ("lost device") History of bronchitis Reason for inhaler PRN, no recent issues Osteoporosis History of skin cancer Nose and left leg (s/p excision) History of breast cancer s/p chemo, left mastectomy; limb restriction lt arm History of lung cancer s/p RUL wedge resection NSCLC - on Osimertinib (Tagrisso) per heme/onc History of uterine cancer s/p Hysterectomy History of kidney stones Kidney disease Stage III Acid reflux Anxiety Gout Hx Hypertension Surgical History Hx of myringotomy Hx of cataract extraction History of open reduction and internal fixation (ORIF) procedure Status post reverse arthroplasty of shoulder History of surgery History of colonoscopy History of tonsillectomy and adenoidectomy History of total right knee replacement History of left mastectomy History of lung surgery History of hysterectomy Family History Mother History of breast cancer History of ovarian cancer Grandmother History of colon cancer Social History Smoking Status: Never smoker Second Hand Exposure: Yes ( used to smoke); Do You Dip or Chew Tobacco: No; Hx Alcohol Use: No Hx Substance Use: No Preferred Language: Mohawk Communication Ability: Effective Project Program Manager Required: No Beliefs That Will Affect Care: None marital status: Current Living Situation: Alone Current Living Situation Comment: lives in house Other Information That Helps Us Care for You: No Feels Safe at Home: Yes Safety Concerns: Feels Safe At This Time Assistive Devices: Cane and Walker Review of Systems Awake alert c/o weakness and fatigue Physical Exam No respiratory distress sitting upright in a chair ,occasional non productive cough Results & Data Vital Signs (Past 12 Hours) Vital Signs Temp Pulse Resp BP Pulse Ox O2 Del Method 10/07/23 10:55 36.9 C 82 24 107/73 95 Room Air 10/07/23 08:32 37.3 C 81 24 148/86 H 92 Room Air 10/07/23 02:38 36.7 C 76 18 142/81 H 96 Room Air Laboratory Results WBC 20,000 Diagnostic Findings FINDINGS: No pneumothorax. A right subclavian Port-A-Cath runs at the SVC. The heart remains mildly enlarged. Small right pleural effusion and right mid to lower lung zone densities persist. There are bilateral total shoulder arthroplasties. The left lung is essentially clear. There is mild central pulmonary vascular congestion without overt edema. Stable calcified granuloma within the right upper lobe. There are suture material within the right lung consistent with postoperative change. IMPRESSION: No significant change in the small right pleural effusion and right basilar densities. IMPRESSION: 1. Multifocal lesions concerning for metastatic disease noted in the liver, spleen, possibly right adrenal gland, and skeleton. No acute abnormalities to explain fever and nausea. In particular the appendix is normal and there is no evidence of bowel obstruction. 2. Right pleural effusion is nonspecific but malignant effusion cannot be excluded. 3. Additional findings as above. (4) Fever Fever type: unspecified Qualified Code(s): R50.9 - Fever, unspecified (5) Leukocytosis Leukocytosis type: unspecified Qualified Code(s): D72.829 - Elevated white blood cell count, unspecified
[2023-10-08 07:46] LABS: Hematocrit (blood only) 35.7 % (37.0-47.0); Hemoglobin 11.9 g/dl (12.0-16.0); Mean Corpuscular Hemoglobin 29.2 pg (25.0-34.0); Mean Corpuscular Hgb Conc 33.3 g/dL (32.0-36.0); Mean Corpuscular Volume 87.5 fL (80.0-100.0); Mean Platelet Volume 9.5 fL (9.4-12.4); Platelet Count 399 K/uL (130-400); RDW Standard Deviation 48.1 fL (36.4-46.3); Red Blood Count 4.08 M/uL (4.20-5.40); White Blood Count 17.16 K/ul (4.8-10.8)
[2023-10-08 08:00] LABS: BUN Creatinine Ratio 34.8 (10-20); Calcium 8.1 mg/dl (8.6-10.3); Creatinine Clr Calc Pharmacy 50.6 ml/min; Est GFR (African American) 67.2 ml/min; Magnesium 1.8 mg/dl (1.7-2.4); Potassium 3.4 mmol/L (3.5-5.1)
[2023-10-08] MEDS: POTASSIUM CHLORIDE CRTAB 20 MEQ TABCR PO STA (09:16)
[2023-10-08] MEDS: DOXYCYCLINE HYCLATE 100 MG CAP PO SCH (09:52)
[2023-10-08] MEDS: CEFDINIR 300 MG CAP PO SCH (09:52)
--- NOTE | 2023-10-08 10:25 | Hospitalist Progress Note ---
Date of Service October 08, 2023 Assessment & Plan (1) Pleural effusion: Plan: Sepsis due to Pneumonia-POA Right pleural effusion chronic per family--parapneumonic effusion Vs secondary to lung malignancy H/O lung Cancer --CXR:Bilateral pleural effusions and right lower lung airspace opacity are increased from prior exam. --Repeat chest x-ray showed Slight improvement in the small right pleural effusion and right basilar densities. --Negative BioFire --ECHO: Left ventricle is normal in size. Moderate concentric LVH (, mostly normal. EF 55 to 60%. Grade 1 diastolic dysfunction. -- Blood cultures: No growth to date Empirically on cefepime, doxycycline>> transitioned to cefdinir, doxycycline to complete the course continue HCTZ Plan to discharge to rehab facility as able Procalcitonin normalized Clinically improving Leukocytosis - currently 20K - > ID consulted - Do not recommend any further abx, as not clear if pl. effusion is d/t infection or malignancy. urine legionella ag ordered and results pending, sputum cultx ordered (uncollected). Atypical chest pain No significant troponin elevation EKG showed diffuse nonspecific T wave abnormality Limited echo ordered to assess wall motion abnormality Blood pressure likely contributing Added IV labetalol as needed Continue amlodipine, metoprolol, HCTZ, Lisinopril Currently asymptomatic Monitor Left knee pain Likely musculoskeletal No significant tenderness on exam No erythema, swelling Continue Voltaren gel PRN Paroxysmal atrial fibrillation -- Normal TSH --Echo as above --Continue metoprolol On Eliquis for anticoagulation Appreciate cardiology input Metastatic disease: H/O multiple malignancies including lung cancer with recurrence and subsequent treatment Uterine cancer S/P hysterectomy Left breast cancer S/P lumpectomy H/O Skin Cancer Metastatic disease to Liver and bone Liver biopsy done as outpatient: Consistent with metastatic disease, lung primary --CT ABD: Multifocal lesions concerning for metastatic disease noted in the liver, spleen, possibly right adrenal gland, and skeleton. No acute abnormalities to explain fever and nausea. In particular the appendix is normal and there is no evidence of bowel obstruction. Right pleural effusion is nonspecific but malignant effusion cannot be excluded. 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 poor oral intake Customer Orders Clerk following HTN Continue lisinopril, metoprolol, amlodipine, HCTZ IV labetalol as needed Monitor BP NAYA on CPAP HS H/O PE/DVT on Eliquis DVT prophylaxis On Eliquis CODE STATUS DNI only Disposition Rehab when accepted Admission and Anticipated Discharge Date Admission Date: September 27, 2023 Subjective Patient is seen and examined at bedside Appetite continues to improve Denies any significant dyspnea Also denies any chest pain, abdominal pain Reports chronic nausea WBC 20 K yesterday, today 17K - ID consulted - ordered urine legionella ag - pending Pt's son present at the bedside yesterday and updated Called P2P today - so that pt can be DC'ed to [facility], CM updated Review of Systems Review of Systems: All systems reviewed & are unremarkable except as noted in Subjective Physical Exam Physical Exam: General Appearance: Obese, elderly F in NAD Head: NC/AT Eyes: normal inspection, EOMI Neck: supple Respiratory/Chest: Decreased breath sounds, +CTA, No accessory muscle use, +R chemo port Cardiovascular: S1, S2, No murmur Abdomen/GI:Soft, Non tender, soft, Bowel sounds present Extremities/Musculoskeletal:normal inspection, no edema Neurologic/Psych:AAOX3, grossly no focal neurological deficits Skin: normal color, warm Results & Data Results & Data Vital Signs (Past 12 Hours) Vital Signs Temp Pulse Pulse Resp BP Pulse Ox O2 Del Method 10/08/23 08:10 36.9 C 73 17 127/75 92 Room Air 10/08/23 03:27 36.5 C 64 20 138/73 91 Room Air 10/07/23 23:58 75 10/07/23 23:54 36.5 C 77 22 138/73 91 Room Air Laboratory Results 10/08/23 10/07/23 Range/Units 07:06 Unknown WBC 17.16 H (4.8-10.8) K/ul RBC 4.08 L (4.20-5.40) M/uL Hgb 11.9 L (12.0-16.0) g/dl Hct 35.7 L (37.0-47.0) % MCV 87.5 (80.0-100.0) fL MCH 29.2 (25.0-34.0) pg MCHC 33.3 (32.0-36.0) g/dL RDW Std Deviation 48.1 H (36.4-46.3) fL RDW Coeff of Thien 15.0 H (11.5-14.5) % Plt Count 399 (130-400) K/uL MPV 9.5 (9.4-12.4) fL Sodium 141 (136-145) mmol/L Potassium 3.4 L (3.5-5.1) mmol/L Chloride 107 (98-107) mmol/L Carbon Dioxide 26 (21-32) mmol/L Anion Gap 8 (3-11) BUN 32 H (6-23) mg/dl Creatinine 0.92 (0.6-1.2) mg/dl Est Cr Clr Drug Dosing 50.6 ml/min Est GFR ( Amer) 67.2 ml/min Est GFR (Non-Af Amer) 58.0 ml/min BUN/Creatinine Ratio 34.8 H (10-20) Glucose 97 (70-99(Fasting)) mg/dl Calcium 8.1 L (8.6-10.3) mg/dl Phosphorus 4.0 (2.5-4.9) mg/dl Magnesium 1.8 (1.7-2.4) mg/dl Urine Legionella Ag Pending Medications Administered Current Inpatient Medications Acetaminophen (Acetaminophen 325 Mg Tab) 650 mg PO Q6H PRN PRN Reason: Pain or Fever Stop: 10/28/23 02:07 Last Admin: 10/05/23 17:04 Dose: 650 mg Albuterol (Albuterol Hfa 8 Gm Inhaler) 2 puffs INH QID PRN PRN Reason: Shortness Of Breath Stop: 10/27/23 21:03 Amlodipine Besylate (Amlodipine Besylate 5 Mg Tab) 10 mg PO [facility] Stop: 10/28/23 08:59 Last Admin: 10/08/23 09:16 Dose: 10 mg Apixaban (Apixaban 5 Mg Tablet) 5 mg PO BID [facility] Stop: 10/27/23 21:03 Last Admin: 10/08/23 09:17 Dose: 5 mg Aspirin (Aspirin 81 Mg Ectab) [facility] Stop: 11/02/23 08:59 Last Admin: 10/08/23 09:16 Dose: 81 mg Atorvastatin Calcium (Atorvastatin 20 Mg Tab) 20 mg PO [facility] Stop: 10/28/23 08:59 Last Admin: 10/08/23 09:16 Dose: 20 mg Cefdinir (Cefdinir 300 Mg Cap) 300 mg PO BID [facility]; Protocol Stop: 10/15/23 08:59 Last Admin: 10/08/23 09:52 Dose: 300 mg Colchicine (Colchicine 0.6 Mg Tab) 0.6 mg PO BID PRN PRN Reason: GOUT Stop: 10/27/23 21:03 Diclofenac Sodium (Diclofenac Sod 1% Gel 100 Gm Tube) 2 gm EXT BID BERNARDA; Protocol Stop: 10/31/23 10:59 Last Admin: 10/08/23 09:18 Dose: 2 gm Doxycycline Hyclate (Doxycycline Hyclate 100 Mg Cap) 100 mg PO BID [facility] Stop: 10/15/23 08:59 Last Admin: 10/08/23 09:52 Dose: 100 mg Famotidine (Famotidine 20 Mg Tab) 20 mg PO BID PRN PRN Reason: Heartburn Stop: 10/27/23 21:03 Last Admin: 10/06/23 08:50 Dose: 20 mg Fexofenadine HCl (Fexofenadine Hcl 180 Mg Tab) 180 mg PO DAILY PRN PRN Reason: ALLERGY SYPMTOMS Stop: 10/27/23 21:03 Last Admin: 10/05/23 08:42 Dose: 180 mg Fluticasone Propionate (Fluticasone Propionate Na Spr 16 Gm Btl) 2 sprays NA HS [facility] Stop: 10/27/23 21:03 Last Admin: 10/07/23 20:56 Dose: 2 sprays Guaifenesin (Guaifenesin 600 Mg Tabcr) 600 mg PO Q12 [facility] Stop: 11/06/23 08:59 Last Admin: 10/08/23 09:19 Dose: 600 mg Heparin Sodium (Porcine) (Heparin 100 Unit/Ml 5ml Flush) 5 ml FLUSH PRN PRN PRN Reason: Flush Stop: 11/03/23 08:28 Hydrochlorothiazide (Hydrochlorothiazide 25 Mg Tab) 12.5 mg PO QAM [facility] Stop: 10/31/23 08:59 Last Admin: 10/08/23 09:14 Dose: 12.5 mg Prochlorperazine 10 mg/ (Syringe) 10 mls @ 5 mls/min IV Q6H PRN PRN Reason: Nausea And Vomiting Stop: 10/29/23 17:50 Last Admin: 10/07/23 20:47 Dose: 5 mls/min Promethazine HCl 6.25 mg/ (Sodium Chloride) 50.25 mls @ 201 mls/hr IV Q6H PRN PRN Reason: Nausea And Vomiting Stop: 11/02/23 14:33 Last Admin: 10/08/23 09:53 Dose: 201 mls/hr Magnesium Sulfate/Dextrose (Magnesium Sulfate / D5w) 1 gm in 100 mls @ 50 mls/hr IV ONE ONE Stop: 10/08/23 12:15 Labetalol HCl (Labetalol Hcl Iv 5 Mg/Ml 20ml) 10 mg IV Q6H PRN PRN Reason: Hypertension SBP>180orDBP>100 Stop: 11/02/23 10:27 Last Admin: 10/03/23 10:35 Dose: 10 mg Lisinopril (Lisinopril 40 Mg Tab) [facility] Stop: 10/28/23 08:59 Last Admin: 10/08/23 09:16 Dose: 40 mg Magnesium Oxide (Magnesium Oxide 400 Mg Tab) 400 mg PO DAILY [facility] Stop: 10/28/23 08:59 Last Admin: 10/08/23 09:17 Dose: 400 mg Metoprolol Succinate (Metoprolol Succ 50mg Ext Rel Tab) 50 mg PO BID [facility] Stop: 11/02/23 08:59 Last Admin: 10/08/23 09:16 Dose: 50 mg Metoprolol Tartrate (Metoprolol Tartrate 1 Mg/Ml Vial) 5 mg IV Q6 PRN PRN Reason: HR > 120 Stop: 10/28/23 22:56 Last Admin: 10/02/23 21:41 Dose: 5 mg Mirtazapine (Mirtazapine Tab 15 Mg Tab) 7.5 mg PO HS [facility] Stop: 11/03/23 20:59 Last Admin: 10/07/23 20:55 Dose: 7.5 mg Ondansetron HCl (Ondansetron Inj 2 Mg/Ml 2 Ml Vial) 4 mg IV Q6H PRN PRN Reason: Nausea And Vomiting Stop: 10/27/23 17:26 Last Admin: 10/06/23 21:57 Dose: 4 mg Tizanidine HCl (Tizanidine Hcl 4 Mg Tablet) 4 mg PO TID PRN PRN Reason: MUSCLE SPASMS Stop: 10/27/23 21:03 Last Admin: 10/03/23 21:11 Dose: 4 mg Tramadol HCl (Tramadol Hcl 50 Mg Tablet) 25 - 50 mg PO Q4H PRN PRN Reason: Pain Stop: 11/01/23 04:57 Vitamin D (Cholecalciferol 25 Mcg (1000 Units) Tab) 50 mcg PO DAILY [facility]ERNAR[facility] Stop: 10/28/23 08:59 Last Admin: 10/08/23 09:16 Dose: 50 mcg
--- NOTE | 2023-10-08 10:44 | Communication Note ---
Date of Service: October 08, 2023 Tel call from Hugo Aguayo, pt son who is asking for update re dc plan, rehab acceptance and overall continuation of care. Chart reviewed, updates provided. He notes she remains nauseated. I suggest a change to Zyprexa Zydis ODT 5mg PO BID, stop zofran; will also note that Haldol intensol may be a great option however her QTc is 452 and I would generally avoid this in non comfort care patients and QTc should be below 450ms. Hugo and his brother have been in discussion re the hope for chemo vs reality of where things may be headed. I encouraged him to see how rehab goes for a few weeks and keep the follow up with oncology for re eval. extensive psychosocial reassurance and support provided. I will arrange OP Pall med follow up with me in 3 weeks, Hugo will be notified of the date/time TS 25min telephonic ACP Thank you for allowing us to participate in the ongoing care of this patient. Please page with any additional concerns. Kira Mann DNP Director, Palliative Medicine
--- NOTE | 2023-10-08 11:50 | Discharge Summary ---
Date of Service October 08, 2023 Admission HPI Per Admitting Provider She is an 82-year-old female with significant past medical history of recurrent malignancy of the lung, history of uterine cancer, history of breast cancer, hypertension, NAYA on CPAP, history of pulmonary emboli , osteoarthritis and recent diagnosis of multiple metastasis under investigation apparently has been complaining of nausea and progressive weakness since beginning of the year. She was seen by her oncologist last Thursday and she has been waiting the results of the liver biopsy which was done about 1 week ago. She developed fever last evening with chills and the weakness got worse that she was in the ER today. Has cough without any phlegm and has minimal shortness of breath with exertion. Denies any chest pain, any palpitation, no abdominal pain but has nausea without vomiting. No anorexia and denies any significant weight loss. Noted to have high white count of 21,000 and chest x-ray did show possible right lower lobe infiltration with associated effusion. She started with intravenous cefepime and was admitted to medical telemetry unit for continuation of care. Admission Exam Per Admitting Provider Physical Exam: Lying in bed comfortably. Looks depressed and anxious but no distress Constitutional: well developed, well nourished, + ill appearing and + obese Eyes: PERRL, conjunctivae normal, anicteric sclerae ENMT: external ear and nose normal, oropharynx normal Neck: trachea midline, no thyromegaly Respiratory: no respiratory distress Auscultation: + diminished lung sounds and + crackles (Right basilar crackles) Cardiovascular: Rate/Rhythm: regular rate and regular rhythm; not tachycardic Heart Sounds: normal S1 and normal S2; no murmur Extremities: no edema Gastrointestinal (Abdomen): Inspection/Auscultation: normal bowel sounds; abdomen not distended Percussion/Palpation: abdomen soft; abdomen nontender Musculoskeletal: No acute arthritis involving any of the joints Neurologic: normal touch/pain/proprioception and moves all extremities; no focal motor deficits Psychiatric: A+Ox3, euthymic affect Lymphatic: no cervical or axillary lymphadenopathy Principal Diagnosis Sepsis due to Pneumonia-POA Pleural effusion H/O lung Cancer Discharge Exam General Appearance: Obese, elderly F in NAD Head: NC/AT Eyes: normal inspection, EOMI Neck: supple Respiratory/Chest: Decreased breath sounds, +CTA, No accessory muscle use, +R chemo port Cardiovascular: S1, S2, No murmur Abdomen/GI:Soft, Non tender, soft, Bowel sounds present Extremities/Musculoskeletal:normal inspection, no edema Neurologic/Psych:AAOX3, grossly no focal neurological deficits Skin: normal color, warm Discharge Data Allergies Allergy/AdvReac Type Severity Reaction Status Date / Time castor oil Allergy Severe ANAPHYLAXIS Verified 09/27/23 16:45 paclitaxel Allergy Severe ANAPHYLAXIS Verified 09/27/23 16:45 ciprofloxacin Allergy Intermediate HIVES/RASH Verified 09/27/23 16:45 codeine AdvReac Intermediate GI SYMPTOMS Verified 09/27/23 16:45 cyproheptadine AdvReac Intermediate LETHARGY Verified 09/27/23 16:45 doxepin AdvReac Intermediate LETHARGY Verified 09/27/23 16:45 gabapentin AdvReac Intermediate GI Verified 09/27/23 16:45 SYMPTOMS/"FEEL OUT OF IT" hydrocodone AdvReac Intermediate GI SYMPTOMS Verified 09/27/23 16:45 meloxicam AdvReac Intermediate DIZZINESS, Verified 09/27/23 16:45 HEADACHE, NAUSEA oxycodone AdvReac Intermediate GI SYMPTOMS Verified 09/27/23 16:45 prednisone AdvReac Intermediate ELEVATED Verified 09/27/23 16:46 GLUCOSE tramadol AdvReac Intermediate GI SYMPTOMS Verified 09/27/23 16:46 Consultations 09/27/23 16:48 ED Decision to Admit Stat 09/29/23 08:00 Consult Cardiology Routine 09/30/23 10:00 Consult Palliative Care Routine 10/07/23 08:02 Consult Infectious Diseases Routine Ordered Studies 09/27/23 14:24 CT abd pelvis IV con only Stat FINDINGS: Lower chest: There is a small right pleural effusion with associated atelectasis. Cardiomegaly is seen. Liver: Innumerable, relatively hypoenhancing hepatic lesions are seen. Gallbladder and biliary tree: Cholelithiasis is seen without evidence of cholecystitis. No intra- or extrahepatic biliary ductal dilation. Pancreas: Fatty replacement of the pancreas is seen. Spleen: Mildly hypoenhancing splenic lesions are also seen. Adrenals: There is a right adrenal nodule measuring 14 mm in diameter, new from prior exam. Nodular thickening of the left adrenal gland is unchanged. Kidneys and ureters: Nonobstructive nephrolithiasis is seen. Bilateral renal cysts are seen. Bladder: Unremarkable. Reproductive organs: Patient is status post hysterectomy. Bowel: The appendix is normal. Lymph nodes Retroperitoneal: Unremarkable. Pelvic: Unremarkable. Mesenteric: Unremarkable. Peritoneum: Normal. Vessels: Unremarkable. Abdominal wall: Unremarkable. Bones: Degenerative changes in the visualized spine. Multiple sclerotic foci are seen in the skeleton. A left femoral nail is seen. IMPRESSION: 1. Multifocal lesions concerning for metastatic disease noted in the liver, spleen, possibly right adrenal gland, and skeleton. No acute abnormalities to explain fever and nausea. In particular the appendix is normal and there is no evidence of bowel obstruction. 2. Right pleural effusion is nonspecific but malignant effusion cannot be excluded. 3. Additional findings as above. ACT 112: Negative or not required by law. 10/02/23 20:06 CT cervical spine wo con Stat FINDINGS: The vertebral body heights are maintained. The craniocervical junction is intact. The atlanto-dens interval is maintained. The dens is intact. There is no spondylolisthesis. Multilevel cervical spondylosis and degenerative disc disease. Straightening of the cervical lordosis. The unenhanced neck soft tissues are grossly unremarkable. The visualized lung apices are grossly clear. IMPRESSION: No acute fracture or subluxation of the cervical spine. Hospital Course (1) Pleural effusion: Sepsis due to Pneumonia-POA Right pleural effusion chronic per family--parapneumonic effusion Vs secondary to lung malignancy H/O lung Cancer --CXR:Bilateral pleural effusions and right lower lung airspace opacity are increased from prior exam. --Repeat chest x-ray showed Slight improvement in the small right pleural effusion and right basilar densities. --Negative BioFire --ECHO: Left ventricle is normal in size. Moderate concentric LVH (, mostly normal. EF 55 to 60%. Grade 1 diastolic dysfunction. -- Blood cultures: No growth to date Empirically on cefepime, doxycycline>> transitioned to cefdinir, doxycycline to complete the course continue HCTZ Plan to discharge to rehab facility as able Procalcitonin normalized Clinically improving Leukocytosis - currently 20K - > ID consulted - Do not recommend any further abx, as not clear if pl. effusion is d/t infection or malignancy. urine legionella ag ordered and results pending, sputum cultx ordered (uncollected). Atypical chest pain No significant troponin elevation EKG showed diffuse nonspecific T wave abnormality Limited echo ordered to assess wall motion abnormality Blood pressure likely contributing Added IV labetalol as needed Continue amlodipine, metoprolol, HCTZ, Lisinopril Currently asymptomatic Monitor Left knee pain Likely musculoskeletal No significant tenderness on exam No erythema, swelling Continue Voltaren gel PRN Paroxysmal atrial fibrillation -- Normal TSH --Echo as above --Continue metoprolol On Eliquis for anticoagulation Appreciate cardiology input Metastatic disease: H/O multiple malignancies including lung cancer with recurrence and subsequent treatment Uterine cancer S/P hysterectomy Left breast cancer S/P lumpectomy H/O Skin Cancer Metastatic disease to Liver and bone Liver biopsy done as outpatient: Consistent with metastatic disease, lung primary --CT ABD: Multifocal lesions concerning for metastatic disease noted in the liver, spleen, possibly right adrenal gland, and skeleton. No acute abnormalities to explain fever and nausea. In particular the appendix is normal and there is no evidence of bowel obstruction. Right pleural effusion is nonspecific but malignant effusion cannot be excluded. -- Appreciate palliative care input --Needs follow-up with oncology on discharge Ongoing nausea Likely secondary to malignancy/Infection Monitor and replete electrolytes as needed Antiemetics as needed - may need IV antiemetic in rehab- also palliative medicine consulted - suggest a change to Zyprexa Zydis ODT 5mg PO BID, stop zo tamika; will also note that Haldol intensol may be a great option however her QTc is 452 and I would generally avoid this in non comfort care patients and QTc should be below 450ms.- discussed these recommendations over the phone with pt's daughter- for now will not change to zyprexa but this may be further considered at rehab or after leaving rehab Added Remeron given poor oral intake Facing Baster Jumpbasting following HTN Continue lisinopril, metoprolol, amlodipine, HCTZ IV labetalol as needed Monitor BP NAYA on CPAP HS H/O PE/DVT on Eliquis DVT prophylaxis On Eliquis CODE STATUS DNI only Disposition Rehab / [facility] Total Time Total Time Spent Total Time Spent (In Minutes): 40 Discharge Plan Discharge Items Patient Disposition: Transfer Acute Care Hospital Reason For Visit: FEVER,NAUSEA,MATASTIC CANCER Discharge Diagnosis: Sepsis due to Pneumonia-POA Pleural effusion H/O lung Cancer Condition on Discharge: Fair Activity: Per Instructions section Non-emergency contact: Primary Care Provider and Oncologist Call non-emergency contact if: you have any medication questions and your sy mptoms worsen Follow-up/Referrals: Hank Ivey, DO [Primary Care Provider] - Yenny Mann DNP [Nurse Practitioner] - 10/29/23 2:00 pm Diet: Regular Addtl Attending Provider Instructions: Follow up with your primary care doctor and oncologist. Finish antibiotic treatment as prescribed. Recommend to have blood work checked - CBC in next 2-3 days x3. Your metoprolol dose was increased to 50 twice a day. Monitor your blood pressure and heart rate, and follow up with your health care providers. Your medications may need to be further adjusted. Pending Studies at Discharge: No Stand-Alone Forms: My [facility] Skilled Items Patient informed of condition?: Yes DNR: Yes (conditional code) Discharge Level of Care: Acute rehab Communicable Disease: No Discharge Prognosis: Other Lines: [place] Urinary Catheter: No Medications and DC Order Prescriptions: New cefdinir 300 mg Capsule 300 mg PO BID Qty: 4 0RF Advanced Probiotic 625 mg (10 billion cell) Capsule 1 cap PO DAILY Qty: 10 0RF guaifenesin [Mucinex] 600 mg Tablet Extended Release 12hr 600 mg PO Q12 Qty: 10 0RF mirtazapine 15 mg Tablet 7.5 mg PO HS 30 Days Qty: 15 0RF aspirin 81 mg Tablet,Delayed Release (Dr/Ec) 81 mg PO QAM Qty: 30 0RF metoprolol succinate 50 mg Tablet Extended Release 24 Hr 50 mg PO BID Qty: 60 0RF acetaminophen 325 mg Tablet 650 mg PO Q6H PRN (Reason: pain) Qty: 14 0RF doxycycline hyclate 100 mg Capsule 100 mg PO BID Qty: 4 0RF Continued atorvastatin 20 mg Tablet 20 mg PO QAM amlodipine 10 mg Tablet 10 mg PO QAM albuterol sulfate 90 mcg/actuation Hfa Aerosol Inhaler 2 puff INHALATION QID PRN (Reason: SOB) colchicine 0.6 mg Tablet 0.6 mg PO BID PRN (Reason: GOUT) tizanidine 4 mg Capsule 4 mg PO TID PRN (Reason: MUSCLE SPASMS) ondansetron HCl 8 mg tablet 8 mg PO Q8H PRN (Reason: Nausea) prochlorperazine maleate 10 mg tablet 10 mg PO Q6H PRN (Reason: Nausea) fluticasone propionate 50 mcg/actuation [place],Suspension 2 spray INTRANASAL HS Eliquis 5 mg tablet 5 mg PO BID famotidine [Pepcid] 20 mg Tablet 20 mg PO BID PRN (Reason: Heartburn) amoxicillin 500 mg Capsule 2,000 mg PO DIRECTED PRN (Reason: 1 HR PRIOR TO DENTAL PROCEDURES) fexofenadine [Ashley] 180 mg Tablet 180 mg PO DAILY PRN (Reason: ALLERGY SYPMTOMS) meclizine 25 mg Tablet 25 mg PO TID PRN (Reason: Dizziness) potassium citrate 10 mEq (1,080 mg) tablet extended release 10 meq PO BID lisinopril 40 mg tablet 40 mg PO QAM hydrochlorothiazide 12.5 mg tablet 12.5 mg PO QAM cholecalciferol (vitamin D3) [Vitamin D3] 50 mcg (2,000 unit) Capsule 2,000 unit PO DAILY magnesium oxide 400 mg magnesium Tablet 400 mg PO DAILY Discontinued metoprolol succinate 50 mg Tablet Extended Release 24 Hr 50 mg PO QAM Discharge Orders: Discharge Order (Routine); Ordered 10/08/23 Ordered By: John Song Admission Data Admit Date/Time: 09/27/23 17:33 Attending Provider: John Song Admit Provider: Cori Broderick Primary Care Provider: Hank Ivey Other Providers: Cori Broderick; Yenny Mann; [facility]; [facility]; Ayan Moreno; Jonny Bello; Gilberto Pinedo; Chris Paez I.; Bob Pace II; Shirley Jones; Hugo Thakkar; Sawyer Golden; Nydia Olsen
[2023-10-08] MEDS: MAGNESIUM SULFATE / D5W 1 GM/100 ML BAG IV ONE (12:32)
[2023-10-08] MEDS: ADVANCED PROBIOTIC 625 MG CAPSULE PO SCH (12:32)
--- NOTE | 2023-10-09 23:01 | Electrocardiogram Report ---
Test Reason : Blood Pressure : / mmHG Vent. Rate : 089 BPM Atrial Rate : 089 BPM P-R Int : 142 ms QRS Dur : 086 ms QT Int : 372 ms P-R-T Axes : 026 -18 012 degrees QTc Int : 452 ms Normal sinus rhythm Anterior infarct , age undetermined Nonspecific T wave abnormality Abnormal ECG When compared with ECG of 02-OCT-2023 22:05, Nonspecific T wave abnormality, worse in Inferior leads and anterior leads Confirmed by Vega Nunez ([id number]) on 10/09/2023 11:00:22 PM Referred By: REFERRED SELF Confirmed By:Vega Nunez
== END 2023-10-08 15:48 | DRG 871 ==
LOC: ED 12:45 → SUATTDRO 17:33 → 2N 17:33 → 2E 09-28 22:55

== ENCOUNTER 2025-02-20 15:54 | Observation (INO) ==
[2025-02-20] MEDS: SODIUM CHLORIDE 0.9% 1,000 ML IV ONE (16:33)
--- NOTE | 2025-02-20 16:33 | Emergency Department Note ---
Impression & Plan Weakness, ALCIRA (acute kidney injury), Hypomagnesemia, Metastatic cancer ED Provider Note NAME: MELANIE AVILA AGE: 84 SEX: F : 1940 ARRIVES VIA: Walk-In INFORMANT: Patient ED PROVIDER(S): Edward Fermin DO CHIEF COMPLAINT: Weakness HPI: Patient is an 84-year-old female with a past medical history of ALCIRA, weakness, adenocarcinoma, metastatic disease who presents to the ER for weakness with family present at bedside. She notes that she has been nauseated for several months. Denies any headache or change in vision. No chest pain or shortness of breath. Daughter notes that she was diagnosed with kidney stones previously. She has no back pain or belly pain. No dysuria, urgency or frequency. No other exacerbating or remitting factors. Daughters present bedside notes that she is too weak to go home as she cannot even get up out of bed. ADDITIONAL HISTORY OBTAINED: Per HPI Chronic Medical/Social Conditions Affecting Care: Per HPI PAST MEDICAL HISTORY:See Below PAST SURGICAL HISTORY:See Below FAMILY HISTORY:See Below SOCIAL HISTORY:See Below HOME MEDICATIONS:See Below ALLERGIES:See Below VITALS:See Below PHYSICAL EXAMINATION: GENERAL: Sitting up in bed, alert, comfortable appearing, disheveled EYE EXAM: normal conjunctiva. PERRL and EOM's grossly intact. OROPHARYNX: mucous membranes are moist NECK: supple, no nuchal rigidity, no adenopathy, non-tender LUNGS: Clear to auscultation. Normal chest wall mechanics HEART: no murmurs, S1 normal and S2 normal ABDOMEN: abdomen soft, non-tender, normo-active bowel sounds, no masses, no rebound or guarding. BACK: Back is symmetrical on inspection and there is no deformity, no midline tenderness, no CVA tenderness. SKIN: no rashes and no bruising UPPER EXTREMITIES: upper extremities are grossly normal. LOWER EXTREMITIES: No pitting edema. NEURO EXAM: Normal sensorium, cranial nerves II-XII grossly intact, normal speech, no gross weakness of arms, no gross weakness of legs. MEDICAL DECISION MAKING: Patient is an 84-year-old female brought in by daughter who provides additional history notes that she is very weak and was sent in for admission by hematology oncology. IV was established and blood work is obtained. Labs show mild leukocytosis to 13,000. No significant anemia. BMP with a creatinine of 2 up from 1.6 previously. Calcium mildly elevated 11.9. Mag slightly low at 1.5. Lipase was normal. UA was contaminated. CT of the head was unremarkable. Chest x-ray with a mild effusion. Case was discussed with the hospitalist for further evaluation management treatment. She was given IV fluids. Consults/Care Managements Discussions: Per MDM Triage Nursing notes reviewed. Limited review of prior medical records performed Vital Signs: reviewed and remarkable for no significant abnormalities Differential diagnosis: Infection, dehydration, metabolic abnormality, hypo/hyperglycemia, electrolyte disturbance, anemia, hypoxia, cardiac sources, intracerebral event, toxicologic, neurologic, as well as other pathologies. ER treatment provided: See below Diagnostics interpreted by me include EKG and cardiac monitoring as listed below: -Cardiac Monitoring: An order was placed for continuous cardiac monitoring. The monitor shows a rate of 90 with sinus rhythm. -ECG: none -Laboratory studies:Interpreted by me as stated above in MDM and shown below. Imaging studies: Xrays: As interpreted by me: Portable AP upright 1 view of the chest she has a right lower effusion CTs show: CT of the head shows no acute pathology Procedures:none Critical Care: None Past Med/Surg History Problem List Metastatic cancer (Acute) Hypomagnesemia (Acute) ALCIRA (acute kidney injury) (Acute) Weakness (Acute) History of venous thromboembolism Chronic nausea Severe protein-calorie malnutrition Malignant pleural effusion Metastatic lung cancer (metastasis from lung to other site) Hypercalcemia of malignancy ALCIRA (acute kidney injury) (Acute) Hypercalcemia (Acute) Weakness (Acute) Nausea vomiting and diarrhea (Acute) Tremor Vocal tremor Anxiety and depression Contusion of arm, right Adenocarcinoma Non-small cell lung cancer Palliative care by specialist Advanced care planning/counseling discussion Weakness generalized Dyspnea and respiratory abnormalities Paroxysmal atrial fibrillation Metastatic disease Pleural effusion (Acute) Malignancy (Acute) Fever (Acute) Leukocytosis (Acute) Weakness (Acute) De Quervain's tenosynovitis Stress fracture Thigh pain Status post reverse total replacement of left shoulder (~03/2022) HTN (hypertension) (Chronic) Kidney calculi (Chronic) Uterine cancer (Chronic) CTS (carpal tunnel syndrome) (Chronic) NAYA on CPAP (Chronic) Age related osteoporosis (Chronic) H/O mastectomy (Chronic) H/O: hysterectomy (Chronic) H/O tubal ligation (Chronic) Hx of tonsillectomy (Chronic) H/O knee surgery (Chronic) H/O dilation and curettage (Chronic) H/O eye surgery (Chronic) Cellulitis (Acute) Hypertensive urgency Hypokalemia (Acute) Hypomagnesemia Neutropenic fever Encounter for pre-operative examination Bronchogenic cancer of left lung Chronic bronchitis Cervical spondylosis Asymptomatic hypertensive urgency Stress fracture of left femur Acute leg pain (Acute) Difficulty walking (Acute) Pressure ulcer of sacrum (Acute) DJD (degenerative joint disease) of cervical spine Stage II pressure ulcer (Acute) Pulmonary emboli (Acute) Acute hypokalemia (Acute) Dehydration (Acute) 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 Medical History History of Clostridioides difficile infection Pulmonary embolism Sleep apnea History of bronchitis Osteoporosis History of skin cancer History of breast cancer History of lung cancer History of uterine cancer History of kidney stones Kidney disease Acid reflux Anxiety Gout Hypertension Surgical History Hx of myringotomy Hx of cataract extraction History of open reduction and internal fixation (ORIF) procedure History of surgery History of colonoscopy History of tonsillectomy and adenoidectomy History of total right knee replacement History of left mastectomy History of lung surgery History of hysterectomy Family History Mother History of breast cancer History of ovarian cancer Grandmother History of colon cancer Social History Smoking Status: Never smoker Second Hand Exposure: Yes ( used to smoke); Do You Dip or Chew Tobacco: No; Hx Alcohol Use: No Hx Substance Use: No Preferred Language: Scottish Communication Ability: Effective Floor Broker Required: No Beliefs That Will Affect Care: None marital status: Current Living Situation: Alone Current Living Situation Comment: lives in house Feels Safe at Home: Yes Assistive Devices: Cane and Walker Allergies Allergies Allergy/AdvReac Type Severity Reaction Status Date / Time castor oil Allergy Severe ANAPHYLAXIS Verified 09/27/23 16:45 paclitaxel Allergy Severe ANAPHYLAXIS Verified 09/27/23 16:45 ciprofloxacin Allergy Intermediate HIVES/RASH Verified 09/27/23 16:45 codeine AdvReac Intermediate GI SYMPTOMS Verified 09/27/23 16:45 cyproheptadine AdvReac Intermediate LETHARGY Verified 09/27/23 16:45 doxepin AdvReac Intermediate LETHARGY Verified 09/27/23 16:45 gabapentin AdvReac Intermediate GI Verified 09/27/23 16:45 SYMPTOMS/"FEEL OUT OF IT" hydrocodone AdvReac Intermediate GI SYMPTOMS Verified 09/27/23 16:45 meloxicam AdvReac Intermediate DIZZINESS, Verified 09/27/23 16:45 HEADACHE, NAUSEA oxycodone AdvReac Intermediate GI SYMPTOMS Verified 09/27/23 16:45 prednisone AdvReac Intermediate ELEVATED Verified 09/27/23 16:46 GLUCOSE tramadol AdvReac Intermediate GI SYMPTOMS Verified 09/27/23 16:46 Home Meds Home Medications Medication Instructions Recorded Confirmed albuterol sulfate 90 mcg/actuation 2 puff inhalation QID PRN SOB 06/23/18 02/20/25 aerosol inhaler amlodipine 10 mg tablet 10 mg PO QAM 06/23/18 02/20/25 atorvastatin 20 mg tablet 20 mg PO QAM 06/23/18 02/20/25 colchicine 0.6 mg tablet 0.6 mg PO BID PRN GOUT 06/23/18 02/20/25 tizanidine 4 mg capsule 4 mg PO TID PRN MUSCLE SPASMS 06/23/18 02/20/25 fluticasone propionate 50 2 spray intranasal HS Congestion 12/19/19 02/20/25 mcg/actuation nasal spray,suspension ondansetron HCl 8 mg tablet 8 mg PO Q8H PRN Nausea 12/19/19 02/20/25 prochlorperazine maleate 10 mg 10 mg PO Q6H PRN Nausea 12/19/19 02/20/25 tablet apixaban 5 mg tablet (Eliquis) 5 mg PO BID 12/30/21 02/20/25 famotidine 20 mg tablet (Pepcid) 20 mg PO BID PRN Heartburn 12/30/21 02/20/25 amoxicillin 500 mg capsule 2,000 mg PO DIRECTED PRN 1 HR 09/27/23 02/20/25 PRIOR TO DENTAL PROCEDURES cholecalciferol (vitamin D3) 50 2,000 unit PO DAILY 09/27/23 02/20/25 mcg (2,000 unit) capsule (Vitamin D3) fexofenadine 180 mg tablet 180 mg PO DAILY PRN ALLERGY 09/27/23 02/20/25 SYPMTOMS hydrochlorothiazide 12.5 mg tablet 12.5 mg PO QAM 09/27/23 02/20/25 lisinopril 40 mg tablet 40 mg PO QAM 09/27/23 02/20/25 magnesium oxide 400 mg PO DAILY 09/27/23 02/20/25 meclizine 25 mg tablet 25 mg PO TID PRN Dizziness 09/27/23 02/20/25 potassium citrate 10 mEq (1,080 10 meq PO BID 09/27/23 02/20/25 mg) tablet,extended release Previous Rx's Medication Instructions Recorded L.acidop,casei,lactis,rham-B.lact,esther 1 cap PO DAILY #10 caps 10/08/23 625 mg (10 billion cell) capsule (Advanced Probiotic) acetaminophen 325 mg tablet 650 mg (2 x 325 mg) PO Q6H PRN 10/08/23 pain #14 tabs aspirin 81 mg tablet,delayed 81 mg PO QAM #30 tabs 10/08/23 release cefdinir 300 mg capsule 300 mg PO BID #4 caps 10/08/23 doxycycline hyclate 100 mg capsule 100 mg PO BID #4 caps 10/08/23 guaifenesin 600 mg tablet, 600 mg PO Q12 #10 tabs 10/08/23 extended release 12 hr (Mucinex) metoprolol succinate 50 mg 50 mg PO BID #60 tabs 10/08/23 tablet,extended release 24 hr citalopram 10 mg tablet (Celexa) 10 mg PO DAILY 3 months #90 tabs 08/01/24 metoclopramide HCl 5 mg tablet 5 mg PO DAILY PRN nausea and 02/08/25 (Reglan) vomiting #10 tabs Results & Data (ED) Vital Signs Vital Signs - 24 hr 02/20/25 15:55 02/20/25 17:45 02/20/25 18:35 Temperature 36.6 C Temperature Source Temporal Artery Scan Pulse Rate 90 71 67 Pulse Rate from SpO2 Sensor 69 67 Respiratory Rate 16 23 Blood Pressure 119/79 187/98 H 169/83 H Blood Pressure Mean 92 127 85 Pulse Oximetry 95 95 95 Sepsis Recent Fever Within 48 Hours No Sepsis New/Unexplained Change in Mental Status N/A Sepsis Action Taken by Nursing No Action Required 02/20/25 19:00 02/20/25 19:30 02/20/25 20:30 Temperature Temperature Source Pulse Rate 76 79 73 Pulse Rate from SpO2 Sensor 76 79 73 Respiratory Rate 22 20 Blood Pressure 158/108 H 184/135 H 152/85 H Blood Pressure Mean 118 148 120 Pulse Oximetry 95 94 Sepsis Recent Fever Within 48 Hours Sepsis New/Unexplained Change in Mental Status Sepsis Action Taken by Nursing 02/20/25 21:17 Temperature Temperature Source Pulse Rate 85 Pulse Rate from SpO2 Sensor Respiratory Rate Blood Pressure Blood Pressure Mean Pulse Oximetry Sepsis Recent Fever Within 48 Hours Sepsis New/Unexplained Change in Mental Status Sepsis Action Taken by Nursing Laboratory Data 02/20/25 16:26 02/20/25 16:26 Lab Results 02/20/25 02/20/25 Range/Units 16:26 Unknown WBC 13.12 H (4.8-10.8) K/ul RBC 4.26 (4.20-5.40) M/uL Hgb 13.4 (12.0-16.0) g/dl Hct 37.8 (37.0-47.0) % MCV 88.7 (80.0-100.0) fL MCH 31.5 (25.0-34.0) pg MCHC 35.4 (32.0-36.0) g/dL RDW Std Deviation 49.9 H (36.4-46.3) fL RDW Coeff of Thien 15.3 H (11.5-14.5) % Plt Count 174 (130-400) K/uL MPV 11.4 (9.4-12.4) fL Immature Gran % (Auto) 0.5 % Neut % (Auto) 71.5 % Lymph % (Auto) 15.5 % Pope % (Auto) 10.0 % Eos % (Auto) 2.0 % Baso % (Auto) 0.5 % Neut # (Auto) 9.38 H (1.40-6.50) K/uL Lymph # (Auto) 2.04 (1.20-3.40) K/uL Pope # (Auto) 1.31 H (0.11-0.59) K/uL Eos # (Auto) 0.26 (0.00-0.50) K/uL Baso # (Auto) 0.06 (0.00-0.20) K/uL Immature Gran # (Auto) 0.07 (0.01-0.20) K/uL Sodium 140 (136-145) mmol/L Potassium 3.8 (3.5-5.1) mmol/L Chloride 105 (98-107) mmol/L Carbon Dioxide 24 (21-32) mmol/L Anion Gap 11 (3-11) BUN 34 H (6-23) mg/dl Creatinine 2.00 H (0.6-1.2) mg/dl Est Cr Clr Drug Dosing 19.6 ml/min eGFR 24.18 BUN/Creatinine Ratio 17.0 (10-20) Glucose 93 (70-99(Fasting)) mg/dl Calcium 11.9 H (8.6-10.3) mg/dl Magnesium 1.5 L (1.7-2.4) mg/dl Total Bilirubin 1.2 H (0.2-1.0) mg/dl AST 39 (13-39) U/L ALT 22 (7-52) U/L Alkaline Phosphatase 632 H (34-104) U/L Total Protein 5.7 L (6.0-8.3) gm/dl Albumin 3.4 (3.4-5.0) gm/dl Globulin 2.3 L (2.5-4.0) gm/dl Albumin/Globulin Ratio 1.5 (0.9-2) Lipase 9 L (11-82) U/L Urine Color Dark Yellow Urine Appearance Cloudy A (Clear) Urine pH 5.5 (4.5-7.5) Ur Specific Wann 1.025 (1.000-1.030) Urine Protein 2+ H (Negative) Urine Glucose (UA) Negative (Negative) Urine Ketones Negative (Negative) Urine Blood 3+ H (Negative) Urine Nitrite Negative (Negative) Urine Bilirubin 1+ H (Negative) Urine Urobilinogen Negative (Negative) Ur Leukocyte Esterase Trace H (Negative) Urine WBC (Auto) 21-50 H (0-5) /hpf Urine RBC (Auto) >20 H (0-2) /hpf U Hyaline Cast (Auto) >20 H (0-2) /lpf U Epithel Cells (Auto) >20 H (0-2) /hpf Urine Bacteria (Auto) None Seen (None Seen) Urine Comment Administered Medications Discontinued Medications Sodium Chloride (Nss) 1,000 mls @ 999 mls/hr IV .Q1H1M ONE Stop: 02/20/25 17:29 Last Infusion: 02/20/25 18:00 Dose: Infused Documented By: Admin: 02/20/25 16:33 Dose: 999 mls/hr Documented By: NICKOLAS Imaging Data Radiologist's Impression: Head CT 02/20/25 16:28 Exam(s): CT HEAD Without Contrast EXAM: CT Head Without Intravenous Contrast CLINICAL HISTORY: Reason for exam: trouble walking. TECHNIQUE: Axial computed tomography images of the head/brain without intravenous contrast. CTDI is 38.17 mGy and DLP is 703.85 mGy-cm. Automated exposure control was utilized for the study. A dose lowering technique was utilized adhering to the principles of ALARA. COMPARISON: CT head on 12/12/2023 FINDINGS: Brain: No acute infarct or hemorrhage identified. No extra-axial fluid collection. No mass effect or midline shift. Scattered areas of hypoattenuation in the supratentorial white matter likely represent chronic small vessel ischemic changes. Stable small calcifications. Ventricles and sulci: Prominence of the ventricles and sulci is likely secondary to cerebral volume loss. Bones: Mild hyperostosis frontalis interna. No bony lesion or acute fracture. Subcutaneous tissues: Normal. Sinuses: Mild mucosal thickening in the left sphenoid sinus. Mastoid air cells: Fluid in the right mastoid air cells. Orbits: Bilateral lens implants. Calcifications in the posterior aspect of the globes. Other: Atherosclerotic calcifications in the intracranial vasculature. IMPRESSION: 1. No acute intracranial abnormality. Further evaluation could be performed with MRI if clinically indicated. 2. Chronic small vessel ischemic changes and cerebral volume loss. Electronically signed by: Arnulfo Hodgson M.D. 02/20/25 18:43 PM Chest X-Ray 02/20/25 16:29 Exam(s): XR CXR 1 VIEW EXAM: XR Chest, 1 View CLINICAL HISTORY: Weakness. TECHNIQUE: Frontal view of the chest. COMPARISON: Chest radiographs 10/05/2023 FINDINGS: Lungs: Unremarkable. No consolidation. Pleural space: Improved, now small right pleural effusion. Stable minimal left pleural effusion. No pneumothorax. Heart: Stable cardiac silhouette. Mediastinum: Unremarkable. Normal mediastinal contour. Bones/joints: Redemonstrated bilateral shoulder arthroplasties. There are degenerative changes of the spine. No acute fracture. Tubes, lines and devices: Stable right central venous catheter. IMPRESSION: Improved, now small right pleural effusion. Stable minimal left pleural effusion. Electronically signed by: Deidre Dawkins MD 02/20/25 17:16 PM Abdomen/Pelvis CT 02/20/25 19:21 Exam(s): CT ABDOMEN + PELVIS Without Contrast EXAM: CT Abdomen and Pelvis Without Intravenous Contrast CLINICAL HISTORY: Reason for exam: alcira, kidney stones. TECHNIQUE: Axial computed tomography images of the abdomen and pelvis without intravenous contrast. CTDI is 21 mGy and DLP is 579 mGy-cm. Automated exposure control was utilized for the study. A dose lowering technique was utilized adhering to the principles of ALARA. COMPARISON: CT abdomen/pelvis on 02/08/2025 FINDINGS: Lung bases: Calcified granuloma in the right lower lobe. Lower lung atelectasis. Pleural space: Small right pleural effusion. ABDOMEN: Liver: Hepatomegaly. Hypoattenuating lesions throughout the liver, compatible with hepatic metastases. Gallbladder and bile ducts: Cholelithiasis. No ductal dilation. Pancreas: Atrophy of the pancreas. No ductal dilation. Spleen: Calcified granulomas in the spleen. Small hypodense lesions in the spleen are better visualized on the prior contrast-enhanced exam. Adrenals: Unremarkable. No mass. Kidneys and ureters: Nonobstructing bilateral renal stones. No hydronephrosis or obstructing ureteral stone. Small left renal cyst. No further follow-up necessary. Stomach and bowel: Evaluation of the stomach is limited by underdistention. Diverticulosis without evidence of diverticulitis. PELVIS: Appendix: Normal appendix. Bladder: Underdistended bladder limits evaluation. No stones. Reproductive: Prior hysterectomy. ABDOMEN and PELVIS: Intraperitoneal space: Unremarkable. No free air. No significant fluid collection. Bones/joints: Sclerotic metastases seen throughout the visualized bones. Possible hemangiomas versus lucent metastases in the spine. Intramedullary juan carlos and screw fixation partially seen in the left femur. Degenerative changes of the spine. Grade 1 anterolisthesis of L5 on S1. No acute fracture. No dislocation. Soft tissues: Calcification partially seen in the right breast. Vasculature: Phleboliths in the pelvis. Atherosclerotic changes of the vasculature. No abdominal aortic aneurysm. Lymph nodes: Unremarkable. No enlarged lymph nodes. IMPRESSION: 1. Hepatomegaly. Hypoattenuating lesions throughout the liver, compatible with hepatic metastases. 2. Sclerotic metastases seen throughout the visualized bones. 3. Small right pleural effusion. 4. Nonobstructing bilateral renal stones. No hydronephrosis or obstructing ureteral stone. 5. Cholelithiasis. Electronically signed by: Arnulfo Hodgson M.D. 02/20/25 21:01 PM Discharge Plan Visit Data Chief Complaint: Weakness Stated Complaint: NAUSEA, WEAKNESS, LOSS OF BALANCE ED Provider: Edward Fermin Discharge Problem: Weakness, ALCIRA (acute kidney injury), Hypomagnesemia, Metastatic cancer Condition: Serious Forms Stand Alone Forms: My [facility] [employer] Prescriptions Prescriptions: No Action citalopram [Celexa] 10 mg tablet 10 mg PO DAILY 90 Days Qty: 90 1RF atorvastatin 20 mg Tablet 20 mg PO QAM amlodipine 10 mg Tablet 10 mg PO QAM albuterol sulfate 90 mcg/actuation Hfa Aerosol Inhaler 2 puff INHALATION QID PRN (Reason: SOB) colchicine 0.6 mg Tablet 0.6 mg PO BID PRN (Reason: GOUT) tizanidine 4 mg Capsule 4 mg PO TID PRN (Reason: MUSCLE SPASMS) ondansetron HCl 8 mg tablet 8 mg PO Q8H PRN (Reason: Nausea) prochlorperazine maleate 10 mg tablet 10 mg PO Q6H PRN (Reason: Nausea) fluticasone propionate 50 mcg/actuation Ute,Suspension 2 spray INTRANASAL HS Eliquis 5 mg tablet 5 mg PO BID famotidine [Pepcid] 20 mg Tablet 20 mg PO BID PRN (Reason: Heartburn) amoxicillin 500 mg Capsule 2,000 mg PO DIRECTED PRN (Reason: 1 HR PRIOR TO DENTAL PROCEDURES) fexofenadine 180 mg Tablet 180 mg PO DAILY PRN (Reason: ALLERGY SYPMTOMS) meclizine 25 mg Tablet 25 mg PO TID PRN (Reason: Dizziness) potassium citrate 10 mEq (1,080 mg) tablet extended release 10 meq PO BID lisinopril 40 mg tablet 40 mg PO QAM hydrochlorothiazide 12.5 mg tablet 12.5 mg PO QAM cholecalciferol (vitamin D3) [Vitamin D3] 50 mcg (2,000 unit) Capsule 2,000 unit PO DAILY magnesium oxide 400 mg magnesium Tablet 400 mg PO DAILY cefdinir 300 mg Capsule 300 mg PO BID Qty: 4 0RF Advanced Probiotic 625 mg (10 billion cell) Capsule 1 cap PO DAILY Qty: 10 0RF guaifenesin [Mucinex] 600 mg Tablet Extended Release 12hr 600 mg PO Q12 Qty: 10 0RF aspirin 81 mg Tablet,Delayed Release (Dr/Ec) 81 mg PO QAM Qty: 30 0RF metoprolol succinate 50 mg Tablet Extended Release 24 Hr 50 mg PO BID Qty: 60 0RF acetaminophen 325 mg Tablet 650 mg PO Q6H PRN (Reason: pain) Qty: 14 0RF doxycycline hyclate 100 mg Capsule 100 mg PO BID Qty: 4 0RF metoclopramide HCl [Reglan] 5 mg tablet 5 mg PO DAILY PRN (Reason: nausea and vomiting) Qty: 10 0RF Referrals Referrals: Hank Ivey DO [Primary Care Provider] -
[2025-02-20 16:39] LABS: Hematocrit (blood only) 37.8 % (37.0-47.0); Hemoglobin 13.4 g/dl (12.0-16.0); Immature Granulocytes # (auto) 0.07 K/uL (0.01-0.20); Immature Granulocytes % (auto) 0.5 %; Mean Corpuscular Hemoglobin 31.5 pg (25.0-34.0); Mean Corpuscular Volume 88.7 fL (80.0-100.0); Platelet Count 174 K/uL (130-400); RDW Standard Deviation 49.9 fL (36.4-46.3); Red Blood Count 4.26 M/uL (4.20-5.40); White Blood Count 13.12 K/ul (4.8-10.8)
[2025-02-20 17:05] LABS: Alanine Aminotransferase 22.0 U/L (7-52); Albumin Globulin Ratio 1.5 (0.9-2); Albumin Level 3.4 gm/dl (3.4-5.0); Alkaline Phosphatase 632.0 U/L (34-104); Anion Gap 11.0 (3-11); Bilirubin,Total 1.2 mg/dl (0.2-1.0); Blood Urea Nitrogen 34.0 mg/dl (6-23); Calcium 11.9 mg/dl (8.6-10.3); Carbon Dioxide 24.0 mmol/L (21-32); Chloride 105.0 mmol/L (98-107); Creatinine Clr Calc Pharmacy 19.6 ml/min; Globulin 2.3 gm/dl (2.5-4.0); Glucose 93.0 mg/dl (70-99(Fasting)); Lipase 9.0 U/L (11-82); Magnesium 1.5 mg/dl (1.7-2.4); Potassium 3.8 mmol/L (3.5-5.1); Sodium 140.0 mmol/L (136-145); Total Protein 5.7 gm/dl (6.0-8.3)
--- NOTE | 2025-02-20 17:17 | XRay Report ---
Exam(s): XR CXR 1 VIEW EXAM: XR Chest, 1 View CLINICAL HISTORY: Weakness. TECHNIQUE: Frontal view of the chest. COMPARISON: Chest radiographs 10/05/2023 FINDINGS: Lungs: Unremarkable. No consolidation. Pleural space: Improved, now small right pleural effusion. Stable minimal left pleural effusion. No pneumothorax. Heart: Stable cardiac silhouette. Mediastinum: Unremarkable. Normal mediastinal contour. Bones/joints: Redemonstrated bilateral shoulder arthroplasties. There are degenerative changes of the spine. No acute fracture. Tubes, lines and devices: Stable right central venous catheter. IMPRESSION: Improved, now small right pleural effusion. Stable minimal left pleural effusion. Electronically signed by: Deidre Dawkins MD 02/20/25 17:16 PM
[2025-02-20 17:25] LABS: Appearance Urine Cloudy (Clear); Glucose Urine UA Negative (Negative)
[2025-02-20 18:12] LABS: Bacteria Urine Automated None Seen (None Seen); Cast Urine Automated >20 /lpf (0-2); Epithelial Cell Urine Auto >20 /hpf (0-2); RBC Urine Automated >20 /hpf (0-2); WBC Urine Automated 21-50 /hpf (0-5)
--- NOTE | 2025-02-20 18:43 | CT Scan Report ---
Exam(s): CT HEAD Without Contrast EXAM: CT Head Without Intravenous Contrast CLINICAL HISTORY: Reason for exam: trouble walking. TECHNIQUE: Axial computed tomography images of the head/brain without intravenous contrast. CTDI is 38.17 mGy and DLP is 703.85 mGy-cm. Automated exposure control was utilized for the study. A dose lowering technique was utilized adhering to the principles of ALARA. COMPARISON: CT head on 12/12/2023 FINDINGS: Brain: No acute infarct or hemorrhage identified. No extra-axial fluid collection. No mass effect or midline shift. Scattered areas of hypoattenuation in the supratentorial white matter likely represent chronic small vessel ischemic changes. Stable small calcifications. Ventricles and sulci: Prominence of the ventricles and sulci is likely secondary to cerebral volume loss. Bones: Mild hyperostosis frontalis interna. No bony lesion or acute fracture. Subcutaneous tissues: Normal. Sinuses: Mild mucosal thickening in the left sphenoid sinus. Mastoid air cells: Fluid in the right mastoid air cells. Orbits: Bilateral lens implants. Calcifications in the posterior aspect of the globes. Other: Atherosclerotic calcifications in the intracranial vasculature. IMPRESSION: 1. No acute intracranial abnormality. Further evaluation could be performed with MRI if clinically indicated. 2. Chronic small vessel ischemic changes and cerebral volume loss. Electronically signed by: Arnulfo Hodgson M.D. 02/20/25 18:43 PM
--- NOTE | 2025-02-20 19:25 | History & Physical Report ---
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 Found to have acute kidney injury most likely due to volume depletion, hypercalcemia of malignancy and other electrolyte abnormalities. Patient is at high risk for ongoing symptoms associated with electrolyte abnormalities and progression of her disease. Requires hospital level care and intervention Admit to the MedSurg unit IV fluid resuscitation Monitor renal function Monitor calcium level, will see how hydration affects calcium level and renal function. If renal function improves and remains hypercalcemia would recommend a dose of Zometa Consult nephrology for acute kidney injury and hypercalcemia, suspect renal dysfunction laying mostly prerenal. Family is requesting Consult palliative care, patient and family requesting to have ongoing discussions with them about goals of care giving her most current condition Hold nephrotoxins including lisinopril and hydrochlorothiazide Increase metoprolol dose for blood pressure management and to offset the holding of the lisinopril Will hold the Tagrisso in the acute hospital setting. Patient may also be having some side effects from this medication contributing to her nausea. Trial of scheduled Reglan before meals and at bedtime to see if that helps with her ability for oral intake Pepcid scheduled twice daily, previously only taking as needed Consult dietitian for nutritional evaluation and recommendations Case management to assist with possible home care Continue other outpatient medications as ordered including Eliquis for chronic anticoagulation in setting of paroxysmal atrial fibrillation and history of VTE disease associated with malignancy. Did discuss CODE STATUS and advanced directives with patient and family at bedside. Patient did request to be a full code and would want CPR, ICU level care mechanical ventilation if required. History of Present Illness Chief Complaint: Progressive weakness, and constant nausea, poor oral intake, unable to care for self at home Primary Care Provider: Hank Ivey DO Patient is 84-year-old female with known metastatic adenocarcinoma of the lung that has reoccurred in the mediastinum and right hilar area, liver and bones.About 6 weeks ago patient presented to [facility] with hematuria. Noted to have kidney stones. According to the [id number] at the bedside states that the patient's condition has steadily declined since then. She has had persistent nausea. Has decreased oral intake. She was seen at [facility] emergency room on 02/08/2025. She was noted to have some mild kidney injury and hypercalcemia. She was given some IV fluids and she felt improved and was discharged home. Since then she has been at hematology office where she received IV fluids and Zometa in the outpatient transfusion center for hypercalcemia of malignancy. Despite these interventions patient continued to progressively get weaker. Still not eating or drinking well came back to the emergency room today at the prompting of her financial institution treasurer and oncologist. In the emergency room laboratory studies were consistent with multiple electrolyte abnormalities including hypercalcemia and progressive renal dysfunction. She was referred to our service for further evaluation. Time of my evaluation patient was comfortable. [id number] at bedside. Most the history is obtained from her. She confirms that ever since her ED visit at [facility] the end of January she has progressively declined. She is barely eating or drinking much at all. Patient states she still is having bowel movements. No real abdominal pain. Some chronic shortness of breath. Her weakness has progressed the point really where she is really unable to get up and walk around and take care of herself at home. Prior to this she was ambulating on her own. Last week or so they have been assisting her in a wheelchair but she was able to assist with transfers. Now she can hardly even stand to assist with transfers. No fever or chills. No chest pain. She had been doing so well since April 2024 as she was actually discharged from the palliative care service. She was doing well as far as her oncologist was concerned. They had decided that she would not pursue any additional treatment other than what she is currently on for her cancer Tagrisso. [id number]'s concern that the kidney stones may somehow be causing her decline. They did request inpatient nephrology and palliative care consults with this hospitalization. Allergies Allergy/AdvReac Type Severity Reaction Status Date / Time castor oil Allergy Severe ANAPHYLAXIS Verified 09/27/23 16:45 paclitaxel Allergy Severe ANAPHYLAXIS Verified 09/27/23 16:45 ciprofloxacin Allergy Intermediate HIVES/RASH Verified 09/27/23 16:45 codeine AdvReac Intermediate GI SYMPTOMS Verified 09/27/23 16:45 cyproheptadine AdvReac Intermediate LETHARGY Verified 09/27/23 16:45 doxepin AdvReac Intermediate LETHARGY Verified 09/27/23 16:45 gabapentin AdvReac Intermediate GI Verified 09/27/23 16:45 SYMPTOMS/"FEEL OUT OF IT" hydrocodone AdvReac Intermediate GI SYMPTOMS Verified 09/27/23 16:45 meloxicam AdvReac Intermediate DIZZINESS, Verified 09/27/23 16:45 HEADACHE, NAUSEA oxycodone AdvReac Intermediate GI SYMPTOMS Verified 09/27/23 16:45 prednisone AdvReac Intermediate ELEVATED Verified 09/27/23 16:46 GLUCOSE tramadol AdvReac Intermediate GI SYMPTOMS Verified 09/27/23 16:46 Home Medications Medication Instructions Recorded Confirmed Type albuterol sulfate 90 mcg/actuation 2 puff inhalation QID PRN SOB 06/23/18 02/20/25 History aerosol inhaler amlodipine 10 mg tablet 10 mg PO QAM 06/23/18 02/20/25 History atorvastatin 20 mg tablet 20 mg PO QAM 06/23/18 02/20/25 History colchicine 0.6 mg tablet 0.6 mg PO BID PRN GOUT 06/23/18 02/20/25 History tizanidine 4 mg capsule 4 mg PO TID PRN MUSCLE SPASMS 06/23/18 02/20/25 History fluticasone propionate 50 2 spray intranasal HS Congestion 12/19/19 02/20/25 History mcg/actuation nasal spray,suspension ondansetron HCl 8 mg tablet 8 mg PO Q8H PRN Nausea 12/19/19 02/20/25 History prochlorperazine maleate 10 mg 10 mg PO Q6H PRN Nausea 12/19/19 02/20/25 History tablet apixaban 5 mg tablet (Eliquis) 5 mg PO BID 12/30/21 02/20/25 History famotidine 20 mg tablet (Pepcid) 20 mg PO BID PRN Heartburn 12/30/21 02/20/25 History amoxicillin 500 mg capsule 2,000 mg PO DIRECTED PRN 1 HR 09/27/23 02/20/25 History PRIOR TO DENTAL PROCEDURES cholecalciferol (vitamin D3) 50 2,000 unit PO DAILY 09/27/23 02/20/25 History mcg (2,000 unit) capsule (Vitamin D3) fexofenadine 180 mg tablet 180 mg PO DAILY PRN ALLERGY 09/27/23 02/20/25 History SYPMTOMS hydrochlorothiazide 12.5 mg tablet 12.5 mg PO QAM 09/27/23 02/20/25 History lisinopril 40 mg tablet 40 mg PO QAM 09/27/23 02/20/25 History magnesium oxide 400 mg PO DAILY 09/27/23 02/20/25 History meclizine 25 mg tablet 25 mg PO TID PRN Dizziness 09/27/23 02/20/25 History potassium citrate 10 mEq (1,080 10 meq PO BID 09/27/23 02/20/25 History mg) tablet,extended release L.acidop,casei,lactis,rham-B.lact,esther 1 cap PO DAILY #10 caps 10/08/23 02/20/25 Rx 625 mg (10 billion cell) capsule (Advanced Probiotic) acetaminophen 325 mg tablet 650 mg (2 x 325 mg) PO Q6H PRN 10/08/23 02/20/25 Rx pain #14 tabs aspirin 81 mg tablet,delayed 81 mg PO QAM #30 tabs 10/08/23 02/20/25 Rx release cefdinir 300 mg capsule 300 mg PO BID #4 caps 10/08/23 02/20/25 Rx doxycycline hyclate 100 mg capsule 100 mg PO BID #4 caps 10/08/23 02/20/25 Rx guaifenesin 600 mg tablet, 600 mg PO Q12 #10 tabs 10/08/23 02/20/25 Rx extended release 12 hr (Mucinex) metoprolol succinate 50 mg 50 mg PO BID #60 tabs 10/08/23 02/20/25 Rx tablet,extended release 24 hr citalopram 10 mg tablet (Celexa) 10 mg PO DAILY 3 months #90 tabs 08/01/24 02/20/25 Rx metoclopramide HCl 5 mg tablet 5 mg PO DAILY PRN nausea and 02/08/25 02/20/25 Rx (Reglan) vomiting #10 tabs Past Med/Surg History Problem List History of venous thromboembolism Chronic nausea Severe protein-calorie malnutrition Malignant pleural effusion Metastatic lung cancer (metastasis from lung to other site) Hypercalcemia of malignancy ALCIRA (acute kidney injury) (Acute) Hypercalcemia (Acute) Weakness (Acute) Nausea vomiting and diarrhea (Acute) Tremor Vocal tremor Anxiety and depression Contusion of arm, right Adenocarcinoma Non-small cell lung cancer Palliative care by specialist Advanced care planning/counseling discussion Weakness generalized Dyspnea and respiratory abnormalities Paroxysmal atrial fibrillation Metastatic disease Pleural effusion (Acute) Malignancy (Acute) Fever (Acute) Leukocytosis (Acute) Weakness (Acute) De Quervain's tenosynovitis Stress fracture Thigh pain Status post reverse total replacement of left shoulder (~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) HTN (hypertension) (Chronic) Kidney calculi (Chronic) Uterine cancer (Chronic) CTS (carpal tunnel syndrome) (Chronic) NAYA on CPAP (Chronic) Age related osteoporosis (Chronic) H/O mastectomy (Chronic) H/O: hysterectomy (Chronic) H/O tubal ligation (Chronic) Hx of tonsillectomy (Chronic) H/O knee surgery (Chronic) H/O dilation and curettage (Chronic) H/O eye surgery (Chronic) Cellulitis (Acute) Hypertensive urgency Hypokalemia (Acute) Hypomagnesemia Neutropenic fever Encounter for pre-operative examination Bronchogenic cancer of left lung Chronic bronchitis Cervical spondylosis Asymptomatic hypertensive urgency Stress fracture of left femur Acute leg pain (Acute) Difficulty walking (Acute) Pressure ulcer of sacrum (Acute) DJD (degenerative joint disease) of cervical spine Stage II pressure ulcer (Acute) Pulmonary emboli (Acute) Acute hypokalemia (Acute) Dehydration (Acute) 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 Medical History History of Clostridioides difficile infection Pulmonary embolism Sleep apnea History of bronchitis Osteoporosis History of skin cancer History of breast cancer History of lung cancer History of uterine cancer History of kidney stones Kidney disease Acid reflux Anxiety Gout Hypertension Surgical History Hx of myringotomy Hx of cataract extraction History of open reduction and internal fixation (ORIF) procedure History of surgery History of colonoscopy History of tonsillectomy and adenoidectomy History of total right knee replacement History of left mastectomy History of lung surgery History of hysterectomy Family History Mother History of breast cancer History of ovarian cancer Grandmother History of colon cancer Social History Smoking Status: Never smoker Second Hand Exposure: Yes ( used to smoke); Do You Dip or Chew Tobacco: No; Hx Alcohol Use: No Hx Substance Use: No Preferred Language: Jordanian Communication Ability: Effective Safety Sitter Required: No Beliefs That Will Affect Care: None marital status: Current Living Situation: Alone Current Living Situation Comment: lives in house Feels Safe at Home: Yes Assistive Devices: Cane and Walker Review of Systems Review of Systems: Pertinent positive and negative review of systems as mentioned in the HPI Physical Exam Physical Exam: Constitutional: Alert, ill in appearance, frail, underweight nontoxic HEENT: Mucous membranes dry. Sclera clear Neck: Soft, no adenopathy Lungs: Decreased breath sounds, no wheezes CV: S1-S2, regular Abdomen: Soft, nontender, nondistended Extremities: No significant edema Musculoskeletal: No significant joint tenderness Neuro: No focal deficits, generally weak Psych: Cooperative, normal mood Results & Data Results & Data Vital Signs (Past 12 Hours) Vital Signs Temp Pulse Resp BP Pulse Ox 02/20/25 17:45 71 23 187/98 H 95 02/20/25 15:55 36.6 C 90 16 119/79 95 Diagnostic Findings Reviewed imaging, laboratory and diagnostic studies. Pertinent findings as below. WBCs 13.1 Hemoglobin 13.4 Platelets of 174 Sodium 140 Potassium 3.8 Chloride 105 Carbon oxide 24 Creatinine 2.0, this is significantly increased from 02/08/2025 Calcium 11.9, increased from previous Magnesium 1.5 LFTs stable Alk phos 632, increasing Urinalysis negative nitrite trace leukocyte esterase positive blood, no bacteria Personally viewed chest x-ray, small right pleural effusion Head CT no acute abnormalities Code Status & VTE Plan VTE Prophylaxis Plan VTE Prophylaxis will be ordered: No Reason for no VTE drug order: Contraindicated
--- NOTE | 2025-02-20 21:02 | CT Scan Report ---
Exam(s): CT ABDOMEN + PELVIS Without Contrast EXAM: CT Abdomen and Pelvis Without Intravenous Contrast CLINICAL HISTORY: Reason for exam: steve, kidney stones. TECHNIQUE: Axial computed tomography images of the abdomen and pelvis without intravenous contrast. CTDI is 21 mGy and DLP is 579 mGy-cm. Automated exposure control was utilized for the study. A dose lowering technique was utilized adhering to the principles of ALARA. COMPARISON: CT abdomen/pelvis on 02/08/2025 FINDINGS: Lung bases: Calcified granuloma in the right lower lobe. Lower lung atelectasis. Pleural space: Small right pleural effusion. ABDOMEN: Liver: Hepatomegaly. Hypoattenuating lesions throughout the liver, compatible with hepatic metastases. Gallbladder and bile ducts: Cholelithiasis. No ductal dilation. Pancreas: Atrophy of the pancreas. No ductal dilation. Spleen: Calcified granulomas in the spleen. Small hypodense lesions in the spleen are better visualized on the prior contrast-enhanced exam. Adrenals: Unremarkable. No mass. Kidneys and ureters: Nonobstructing bilateral renal stones. No hydronephrosis or obstructing ureteral stone. Small left renal cyst. No further follow-up necessary. Stomach and bowel: Evaluation of the stomach is limited by underdistention. Diverticulosis without evidence of diverticulitis. PELVIS: Appendix: Normal appendix. Bladder: Underdistended bladder limits evaluation. No stones. Reproductive: Prior hysterectomy. ABDOMEN and PELVIS: Intraperitoneal space: Unremarkable. No free air. No significant fluid collection. Bones/joints: Sclerotic metastases seen throughout the visualized bones. Possible hemangiomas versus lucent metastases in the spine. Intramedullary juan carlos and screw fixation partially seen in the left femur. Degenerative changes of the spine. Grade 1 anterolisthesis of L5 on S1. No acute fracture. No dislocation. Soft tissues: Calcification partially seen in the right breast. Vasculature: Phleboliths in the pelvis. Atherosclerotic changes of the vasculature. No abdominal aortic aneurysm. Lymph nodes: Unremarkable. No enlarged lymph nodes. IMPRESSION: 1. Hepatomegaly. Hypoattenuating lesions throughout the liver, compatible with hepatic metastases. 2. Sclerotic metastases seen throughout the visualized bones. 3. Small right pleural effusion. 4. Nonobstructing bilateral renal stones. No hydronephrosis or obstructing ureteral stone. 5. Cholelithiasis. Electronically signed by: Arnulfo Hodgson M.D. 02/20/25 21:01 PM
[2025-02-20] MEDS ORDERED: ALUMINUM/MAGNESIUM SUSP 30 ML UDC PO PRN (23:29)
[2025-02-20] MEDS ORDERED: ACETAMINOPHEN 325 MG TAB PO PRN (23:29)
[2025-02-21] MEDS: METOCLOPRAMIDE HCL 5 MG TABLET PO SCH (00:29)
[2025-02-21] MEDS: METOPROLOL SUCC 25MG EXT REL TAB PO SCH ×2 (00:29→07:58)
[2025-02-21] MEDS: APIXABAN 2.5 MG TAB PO SCH (00:29)
[2025-02-21] MEDS: FAMOTIDINE 10 MG TABLET PO SCH (00:29)
[2025-02-21] MEDS: POTASSIUM CITRATE 10 MEQ TAB PO SCH (00:35)
[2025-02-21] MEDS: MAGNESIUM OXIDE 400 MG TAB PO SCH (00:36)
[2025-02-21] MEDS: SODIUM CHLORIDE 0.9% 1,000 ML IV SCH (00:39)
[2025-02-21] MEDS: MAGNESIUM SULFATE / D5W 1 GM/100 ML BAG IV SCH (00:46)
[2025-02-21 05:58] LABS: Hematocrit (blood only) 39.8 % (37.0-47.0); Hemoglobin 13.3 g/dl (12.0-16.0); Mean Corpuscular Hemoglobin 29.8 pg (25.0-34.0); Mean Corpuscular Volume 89.2 fL (80.0-100.0); Platelet Count 150 K/uL (130-400); RDW Standard Deviation 50.1 fL (36.4-46.3); Red Blood Count 4.46 M/uL (4.20-5.40); White Blood Count 15.27 K/ul (4.8-10.8)
[2025-02-21] MEDS: METOPROLOL TARTRATE 1 MG/ML VIAL IV STA ×2 (06:14→06:19)
[2025-02-21 06:15] LABS: Anion Gap 8.0 (3-11); Blood Urea Nitrogen 27.0 mg/dl (6-23); Calcium 10.6 mg/dl (8.6-10.3); Carbon Dioxide 26.0 mmol/L (21-32); Chloride 106.0 mmol/L (98-107); Creatinine Clr Calc Pharmacy 22.1 ml/min; Glucose 86.0 mg/dl (70-99(Fasting)); Magnesium 2.2 mg/dl (1.7-2.4); Potassium 3.4 mmol/L (3.5-5.1); Sodium 140.0 mmol/L (136-145)
[2025-02-21] MEDS: POTASSIUM CHLORIDE CRTAB 20 MEQ TABCR PO STA (07:59)
[2025-02-21] MEDS: ASPIRIN 81 MG ECTAB PO SCH (08:08)
[2025-02-21] MEDS: CITALOPRAM 20 MG TAB PO SCH (08:08)
--- NOTE | 2025-02-21 08:13 | Hospitalist Progress Note ---
Date of Service February 21, 2025 Assessment & Plan (1) ALCIRA (acute kidney injury): (2) Hypercalcemia of malignancy: (3) Non-small cell lung cancer: (4) Metastatic lung cancer (metastasis from lung to other site): (5) Malignant pleural effusion: (6) Severe protein-calorie malnutrition: (7) Chronic nausea: (8) Paroxysmal atrial fibrillation: (9) History of venous thromboembolism: Plan 84 year old female with PMH significant for gout, NAYA, history of PE, paroxysmal atrial fibrillation, hypertension, hyperlipidemia, GERD, CKD IIIb, anxiety, and 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 Found to have acute kidney injury, hypercalcemia of malignancy and other electrolyte abnormalities. ALCIRA on CKD Baseline creat 1.0 Creat on admission 2.0-> 1.77 today Pre renal in the setting of volume depletion and nephrotoxic agents Nephrology consulted and recommending permanent stop HCTZ and ACEI-> discontinue at dc Continue NSS Recheck BMP in am Hypercalcemia of malignancy Received Zometa outpatient for Ca 12.2 on 02/10/2025 Ca on admission 11.9-> 10.6 today Nephrology following Recheck Ca in am with ionized calcium Metastatic non small cell lung cancer to multiple sites Malignant pleural effusion Follows with Dr Linton of [facility] Oncology Recurrent adenocarcinoma of the lung with recurrent disease involving the right lung, mediastinum, right hilar region, liver, bones, right pleural effusion Confirmed metastatic lung cancer via liver biopsy in September 2023 Current treatment with Tagrisso since October 2023 Palliative care consulted Weakness Ambulatory dysfunction PT/OT consults placed to assist with dc planning Atrial fibrillation History of PE RVR this am with rates 115-140 s/p metoprolol tartrate 5mg IV and rate controlled since then Continue Eliquis Metoprolol dose increased from 50 to 75 bid Hypertension HCTZ and lisinopril stopped due to ALCIRA as recommended by Nephrology Continue amlodipine Hyperlipidemia Continue atorvastatin GERD Continue PPI and famotidine Anxiety Continue citalopram DVT Prophylaxis: on Eliquis Code Status: FULL CODE PCP: Hnak Ivey Disposition: pending am labs and goals of care discussion with palliative Patient seen in collaboration with Dr. Moreno. Please see addendum. I spent a total of 60 minutes coordinating, documenting and providing care for this patient excluding time spent in the performance of separately billed services or time spent by another provider/QHP. Admission and Anticipated Discharge Date Admission Date: February 20, 2025 Supervising Physician Co-Signing Physician Notes Patient is seen and examined at bedside states having generalized weakness associate with nausea and poor oral intake. Also admits to have chronic dyspnea on exertion. On exam patient is chronically appearing, elderly, no apparent distress, normocephalic atraumatic, EOMI, decreased breath sounds, clear to auscultation, irregularly irregular, no murmur, no pedal edema, abdomen soft, nontender, normal bowel sounds, alert, awake, oriented, grossly no focal deficits, decreased hearing. Patient is currently being managed for ALCIRA on CKD, hypercalcemia secondary to metastatic disease, transient A-fib RVR. A-fib RVR resolved after IV Lopressor. Metoprolol dose increased to 75 mg twice a day. Monitor and replete electrolytes as needed. Patient already received Zometa as outpatient, despite continues to have hypercalcemia. Appreciate nephrology input. Palliative care consulted. Continue IV fluids. Plan to discontinue HCTZ, OTONIEL permanently. Monitor renal function and avoid nephrotoxic agents as able. I personally interviewed and examined the patient at bedside. I have reviewed the advanced practitioner's documentation on the date of service referred in note and agree with plan. Patient's care is coordinated with Sumi YEH. Please refer to the documentation above for details of patient's presentation and for discussion of other issues. I spent a total [id number] coordinating, documenting, and providing care for this patient excluding time spent in the performance of separately billed services or time spent by another provider/QHP. Subjective Patient seen resting in bed Feels very weak and fatigued Denies pain, chest pain, SOB, abdominal pain, N/V/D, dysuria Review of Systems Review of Systems: All systems reviewed & are unremarkable except as noted in HPI & below Physical Exam Physical Exam: General/Psych: ill appearing, frail, sitting up in bed, conversing easily Head: normocephalic, atraumatic Eyes: normal inspection, PERRL, conjunctivae pink, anicteric sclerae ENT: external ear and nose normal, oropharynx normal, mucous membranes dry Neck: normal visual inspection, trachea midline Respiratory: normal respiratory effort, lungs clear to auscultation, no wheeze/rales/rhonchi, no accessory muscle use Cardiovascular: irregularly irregular rate and rhythm, no murmur/rub/gallop Extremities: no cyanosis or clubbing, normal peripheral pulses, no BLE edema Abdomen/GI: normal bowel sounds, soft, nontender Neurologic/MSK: A+Ox3, motor strength 5/5, moves all extremities Skin: no rashes, normal color, warm and dry Results & Data Results & Data Vital Signs (Past 12 Hours) Vital Signs Pulse Pulse Resp BP BP Pulse Ox O2 Del Method 02/21/25 07:18 135 H 02/21/25 06:44 116 H 18 133/98 95 Room Air 02/21/25 06:14 141 H 159/96 H 02/21/25 05:54 131 H 19 136/93 92 Room Air 02/21/25 02:47 73 18 182/100 H 95 Room Air 02/20/25 23:57 92 H 20 134/83 96 Room Air 02/20/25 23:00 84 20 152/81 H 94 02/20/25 21:17 85 02/20/25 20:30 73 20 152/85 H 94 Laboratory Results Short CBC 02/20/25 02/21/25 Range/Units 16:26 05:16 WBC 13.12 H 15.27 H (4.8-10.8) K/ul Hgb 13.4 13.3 (12.0-16.0) g/dl Hct 37.8 39.8 (37.0-47.0) % Plt Count 174 150 (130-400) K/uL BMP 02/20/25 02/21/25 16:26 05:16 Sodium 140 140 Potassium 3.8 3.4 L Chloride 105 106 Carbon Dioxide 24 26 BUN 34 H 27 H Creatinine 2.00 H 1.77 H Glucose 93 86 Calcium 11.9 H 10.6 H Liver Function 02/20/25 Range/Units 16:26 Total Bilirubin 1.2 H (0.2-1.0) mg/dl AST 39 (13-39) U/L ALT 22 (7-52) U/L Alkaline Phosphatase 632 H (34-104) U/L Albumin 3.4 (3.4-5.0) gm/dl Urine 02/20/25 Range/Units Unknown Urine Color Dark Yellow Urine Appearance Cloudy A (Clear) Urine pH 5.5 (4.5-7.5) Ur Specific [place] 1.025 (1.000-1.030) Urine Protein 2+ H (Negative) Urine Glucose (UA) Negative (Negative) I have independently reviewed and interpreted patient's labs including CBC, BMP, mag, phos Medications Administered Current Inpatient Medications Acetaminophen (Acetaminophen 325 Mg Tab) 650 mg PO Q4H PRN PRN Reason: pain/fever Stop: 03/22/25 23:28 Al Hydrox/Mg Hydrox/Simethicone (Aluminum/Magnesium Susp 30 Ml Udc) 30 ml PO Q6H PRN PRN Reason: Dyspepsia Stop: 03/22/25 23:28 Amlodipine Besylate (Amlodipine Besylate 5 Mg Tab) 10 mg PO QAM [facility] Stop: 03/23/25 08:59 Last Admin: 02/21/25 08:06 Dose: 10 mg Apixaban (Apixaban 5 Mg Tablet) 5 mg PO BID BERNARDA Stop: 03/23/25 20:59 Aspirin (Aspirin 81 Mg Ectab) 81 mg PO QAM BERNARDA Stop: 03/23/25 08:59 Last Admin: 02/21/25 08:08 Dose: 81 mg Citalopram Hydrobromide (Citalopram 20 Mg Tab) 10 mg PO DAILY BERNARDA Stop: 03/23/25 08:59 Last Admin: 02/21/25 08:08 Dose: 10 mg Famotidine (Famotidine 10 Mg Tablet) 10 mg PO BID BERNARDA Stop: 03/22/25 23:28 Last Admin: 02/21/25 08:00 Dose: 10 mg Sodium Chloride (Nss) 1,000 mls @ 100 mls/hr IV .Q10H BERNARDA Stop: 02/23/25 23:28 Last Admin: 02/21/25 08:30 Dose: 125 mls/hr Magnesium Sulfate/Dextrose (Magnesium Sulfate / D5w) 1 gm in 100 mls @ 50 mls/hr IV ONE ONE Stop: 02/21/25 15:59 Magnesium Oxide (Magnesium Oxide 400 Mg Tab) 400 mg PO BID BERNARDA Stop: 03/22/25 23:28 Last Admin: 02/21/25 08:05 Dose: Not Given Metoclopramide HCl (Metoclopramide Hcl 5 Mg Tablet) 5 mg PO ACHS BERNARDA Stop: 03/22/25 23:28 Last Admin: 02/21/25 11:31 Dose: Not Given Metoprolol Succinate (Metoprolol Succ 25mg Ext Rel Tab) 75 mg PO BID [facility] Stop: 03/23/25 07:04 Last Admin: 02/21/25 07:58 Dose: 75 mg Polyethylene Glycol (Polyethylene (Miralax) 17 Gm Pack) 17 gm PO DAILY BERNARDA Stop: 03/23/25 08:59 Last Admin: 02/21/25 11:33 Dose: Not Given Potassium Citrate (Potassium Citrate 10 Meq Tab) 10 meq PO BID [facility] Stop: 03/22/25 23:28 Last Admin: 02/21/25 08:09 Dose: Not Given
[2025-02-21] MEDS: POTASSIUM CHLORIDE / WTR 10 MEQ/100 ML PLCT IV SCH (08:30)
--- NOTE | 2025-02-21 10:05 | Palliative Care Consultation ---
Date of Consultation February 21, 2025 Assessment & Plan (1) Weakness generalized: (2) Nausea & vomiting: (3) Palliative care by specialist: (4) Advanced care planning/counseling discussion: I had a 60min face to face ACP d/w Dianne, her son and dtr in law at bedside along with Shraddha [employer] G[employer] CANDY and Qing ARMANDO. Events to date reviewed Swallowing issues reviewed, Shraddha's reccs significantly appreciated. She will also be seen by OT Reviewed data to date - current CT with hepatic mets - Dr Emi Linton/heme onc was updated Code status rediscussed - in the past, Dianne has favored the option to treat what is treatable and fix what is fixable but when she has a natural , allow it/assure comfort/do not prolong dying.We talked about risks/benefits/likely outcomes of CPR in the context of her age and illness. She is clear about wanting to be home with family. She does not want to on machines or a SNF. We also discussed her current complications of worsening hypercalcemia over past year and renal issues. She elects no code, family in agreement. (5) Dyspnea and respiratory abnormalities: Plan As above We agreed to a follow up family discussion tomorrow at 230pm. If calcium levels remain elevated, Dr Emi Linton suggests another dose of Zometa. Thank you for allowing us to participate in the ongoing care of this patient. Please page with any additional concerns. Kira Mann DNP Director, Palliative Medicine History of Present Illness Reason for Consultation: ongoing GOC, established with PC /known to Sylvester Mann Attending Physician: Ayan Moreno MD History of Present Illness Dianne is an 84yo female well known to me from the past 2 years on ongoing pall care for cancer related symptom mgt. Presented to ED with progressive weakness, n/v, poor oral intake, inc triuble swallowing, worsening tremor, fatigure/forgetful, not swallowing well for about 7-10 days Found to have acute kidney injury and hypercalcemia of malignancy. Creat was 2 and Ca was 11.9 s/p IVF overnight--> +labs improved with creat down to 1.77 and Ca now 10.6. UOP 900 ml overnight. She has hx recurrent non-small cell lung cancer (adenocarcinoma) w/ recurrent disease involving the right lung, she has sub cm lung nodules which are not metabolically active, no mediastinal lymphadenopathy, there had been no evidence of distant metastatic disease noted in the prior PET-CT scan - she is followed by Dr Kush Linton in [facility] 02/20: CT A/P: 1. Hepatomegaly. Hypoattenuating lesions throughout the liver, compatible with hepatic metastases. 2. Sclerotic metastases seen throughout the visualized bones. 3. Small right pleural effusion. 4. Nonobstructing bilateral renal stones. No hydronephrosis or obstructing ureteral stone. 5. Cholelithiasis. 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), pt resides with them They note she was found to have kidney stones a few weeks ago with brea red urine OP has been decreasing Allergies Allergy/AdvReac Type Severity Reaction Status Date / Time castor oil Allergy Severe ANAPHYLAXIS Verified 09/27/23 16:45 paclitaxel Allergy Severe ANAPHYLAXIS Verified 09/27/23 16:45 ciprofloxacin Allergy Intermediate HIVES/RASH Verified 09/27/23 16:45 codeine AdvReac Intermediate GI SYMPTOMS Verified 09/27/23 16:45 cyproheptadine AdvReac Intermediate LETHARGY Verified 09/27/23 16:45 doxepin AdvReac Intermediate LETHARGY Verified 09/27/23 16:45 gabapentin AdvReac Intermediate GI Verified 09/27/23 16:45 SYMPTOMS/"FEEL OUT OF IT" hydrocodone AdvReac Intermediate GI SYMPTOMS Verified 09/27/23 16:45 meloxicam AdvReac Intermediate DIZZINESS, Verified 09/27/23 16:45 HEADACHE, NAUSEA oxycodone AdvReac Intermediate GI SYMPTOMS Verified 09/27/23 16:45 prednisone AdvReac Intermediate ELEVATED Verified 09/27/23 16:46 GLUCOSE tramadol AdvReac Intermediate GI SYMPTOMS Verified 09/27/23 16:46 Home Medications Medication Instructions Recorded Confirmed Type albuterol sulfate 90 mcg/actuation 2 puff inhalation QID PRN SOB 06/23/18 02/20/25 History aerosol inhaler amlodipine 10 mg tablet 10 mg PO QAM 06/23/18 02/20/25 History atorvastatin 20 mg tablet 20 mg PO QAM 06/23/18 02/20/25 History colchicine 0.6 mg tablet 0.6 mg PO BID PRN GOUT 06/23/18 02/20/25 History tizanidine 4 mg capsule 4 mg PO TID PRN MUSCLE SPASMS 06/23/18 02/20/25 History fluticasone propionate 50 2 spray intranasal HS Congestion 12/19/19 02/20/25 History mcg/actuation nasal spray,suspension ondansetron HCl 8 mg tablet 8 mg PO Q8H PRN Nausea 12/19/19 02/20/25 History prochlorperazine maleate 10 mg 10 mg PO Q6H PRN Nausea 12/19/19 02/20/25 History tablet apixaban 5 mg tablet (Eliquis) 5 mg PO BID 12/30/21 02/20/25 History famotidine 20 mg tablet (Pepcid) 20 mg PO BID PRN Heartburn 12/30/21 02/20/25 History amoxicillin 500 mg capsule 2,000 mg PO DIRECTED PRN 1 HR 09/27/23 02/20/25 History PRIOR TO DENTAL PROCEDURES cholecalciferol (vitamin D3) 50 2,000 unit PO DAILY 09/27/23 02/20/25 History mcg (2,000 unit) capsule (Vitamin D3) fexofenadine 180 mg tablet 180 mg PO DAILY PRN ALLERGY 09/27/23 02/20/25 History SYPMTOMS hydrochlorothiazide 12.5 mg tablet 12.5 mg PO QAM 09/27/23 02/20/25 History lisinopril 40 mg tablet 40 mg PO QAM 09/27/23 02/20/25 History magnesium oxide 400 mg PO DAILY 09/27/23 02/20/25 History meclizine 25 mg tablet 25 mg PO TID PRN Dizziness 09/27/23 02/20/25 History potassium citrate 10 mEq (1,080 10 meq PO BID 09/27/23 02/20/25 History mg) tablet,extended release L.acidop,casei,lactis,rham-B.lact,esther 1 cap PO DAILY #10 caps 10/08/23 02/20/25 Rx 625 mg (10 billion cell) capsule (Advanced Probiotic) acetaminophen 325 mg tablet 650 mg (2 x 325 mg) PO Q6H PRN 10/08/23 02/20/25 Rx pain #14 tabs aspirin 81 mg tablet,delayed 81 mg PO QAM #30 tabs 10/08/23 02/20/25 Rx release cefdinir 300 mg capsule 300 mg PO BID #4 caps 10/08/23 02/20/25 Rx doxycycline hyclate 100 mg capsule 100 mg PO BID #4 caps 10/08/23 02/20/25 Rx guaifenesin 600 mg tablet, 600 mg PO Q12 #10 tabs 10/08/23 02/20/25 Rx extended release 12 hr (Mucinex) metoprolol succinate 50 mg 50 mg PO BID #60 tabs 10/08/23 02/20/25 Rx tablet,extended release 24 hr citalopram 10 mg tablet (Celexa) 10 mg PO DAILY 3 months #90 tabs 08/01/24 02/20/25 Rx metoclopramide HCl 5 mg tablet 5 mg PO DAILY PRN nausea and 02/08/25 02/20/25 Rx (Reglan) vomiting #10 tabs Patient History Medical History History of Clostridioides difficile infection After abx, s/p vanco completed 12/31- diarrhea resolved per PAT visit 01/01 Pulmonary embolism 2020, reason for Eliquis; f/u dr morgan, [facility] once/year Sleep apnea Remote hx- no device currently ("lost device") History of bronchitis Reason for inhaler PRN, no recent issues Osteoporosis History of skin cancer Nose and left leg (s/p excision) History of breast cancer s/p chemo, left mastectomy; limb restriction lt arm History of lung cancer s/p RUL wedge resection NSCLC - on Osimertinib (Tagrisso) per heme/onc History of uterine cancer s/p Hysterectomy History of kidney stones Kidney disease Stage III Acid reflux Anxiety Gout Hx Hypertension Surgical History Hx of myringotomy Right ear tube 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, seeing ear sx on 03/13/22" Hx of cataract extraction R/L History of open reduction and internal fixation (ORIF) procedure Left femur fracture ORIF (12/21/19): SAB at L3/4 (x2 attempts) at [facility] History of surgery A-PORT (RIGHT) PLACED 2/2 CHEMO; Rt chest History of colonoscopy History of tonsillectomy and adenoidectomy History of total right knee replacement 05/19/17= SAB X 1 ATTEMPT + PNB AT [facility] History of left mastectomy History of lung surgery RIGHT LUNG NODULE EXCISION/PARTIAL LUNG RESECTION History of hysterectomy Family History Mother History of breast cancer History of ovarian cancer Grandmother History of colon cancer Social History Smoking Status: Never smoker Second Hand Exposure: Yes ( used to smoke); Do You Dip or Chew Tobacco: No; Hx Alcohol Use: No Hx Substance Use: No Preferred Language: Qatari Communication Ability: Effective Manager Utilization Management Required: No Beliefs That Will Affect Care: None marital status: Current Living Situation: Alone Current Living Situation Comment: lives in house Feels Safe at Home: Yes Safety Concerns: Feels Safe At This Time Assistive Devices: Cane, Walker and Wheelchair Review of Systems Review of Systems: All systems reviewed & are unremarkable except as noted in Subjective Physical Exam Physical Exam: Bitemp wasting Ill appearing, frail Neck supple, no stridor Lungs diminished, mild inc effort S1S2 Abd soft, no guarding Gen weakness OA joint changes AAOx3 +fine tremor skin +pallor Results & Data Vital Signs (Past 12 Hours) Vital Signs Pulse Pulse Resp BP BP Pulse Ox O2 Del Method 02/21/25 08:00 88 18 127/83 95 Room Air 02/21/25 07:18 135 H 02/21/25 06:44 116 H 18 133/98 95 Room Air 02/21/25 06:14 141 H 159/96 H 02/21/25 05:54 131 H 19 136/93 92 Room Air 02/21/25 02:47 73 18 182/100 H 95 Room Air 02/20/25 23:57 92 H 20 134/83 96 Room Air 02/20/25 23:00 84 20 152/81 H 94 Laboratory Results 02/21/25 02/21/25 02/20/25 Range/Units 09:54 05:16 Unknown WBC 15.27 H (4.8-10.8) K/ul RBC 4.46 (4.20-5.40) M/uL Hgb 13.3 (12.0-16.0) g/dl Hct 39.8 (37.0-47.0) % MCV 89.2 (80.0-100.0) fL MCH 29.8 (25.0-34.0) pg MCHC 33.4 (32.0-36.0) g/dL RDW Std Deviation 50.1 H (36.4-46.3) fL RDW Coeff of Thien 15.4 H (11.5-14.5) % Plt Count 150 (130-400) K/uL MPV 11.5 (9.4-12.4) fL Immature Gran % (Auto) % Neut % (Auto) % Lymph % (Auto) % [place] % (Auto) % Eos % (Auto) % Baso % (Auto) % Neut # (Auto) (1.40-6.50) K/uL Lymph # (Auto) (1.20-3.40) K/uL [place] # (Auto) (0.11-0.59) K/uL Eos # (Auto) (0.00-0.50) K/uL Baso # (Auto) (0.00-0.20) K/uL Immature Gran # (Auto) (0.01-0.20) K/uL Sodium 140 (136-145) mmol/L Potassium 3.4 L (3.5-5.1) mmol/L Chloride 106 (98-107) mmol/L Carbon Dioxide 26 (21-32) mmol/L Anion Gap 8 (3-11) BUN 27 H (6-23) mg/dl Creatinine 1.77 H (0.6-1.2) mg/dl Est Cr Clr Drug Dosing 22.1 ml/min eGFR 28.00 BUN/Creatinine Ratio 15.3 (10-20) Glucose 86 (70-99(Fasting)) mg/dl Calcium 10.6 H (8.6-10.3) mg/dl Ionized Calcium 1.39 H (1.12-1.32) mmol/L Phosphorus 2.5 (2.5-4.9) mg/dl Magnesium 2.2 (1.7-2.4) mg/dl Total Bilirubin (0.2-1.0) mg/dl AST (13-39) U/L ALT (7-52) U/L Alkaline Phosphatase (34-104) U/L Total Protein (6.0-8.3) gm/dl Albumin (3.4-5.0) gm/dl Globulin (2.5-4.0) gm/dl Albumin/Globulin Ratio (0.9-2) Lipase (11-82) U/L PTH Related Protein Pending Urine Color Dark Yellow Urine Appearance Cloudy A (Clear) Urine pH 5.5 (4.5-7.5) Ur Specific [place] 1.025 (1.000-1.030) Urine Protein 2+ H (Negative) Urine Glucose (UA) Negative (Negative) Urine Ketones Negative (Negative) Urine Blood 3+ H (Negative) Urine Nitrite Negative (Negative) Urine Bilirubin 1+ H (Negative) Urine Urobilinogen Negative (Negative) Ur Leukocyte Esterase Trace H (Negative) Urine WBC (Auto) 21-50 H (0-5) /hpf Urine RBC (Auto) >20 H (0-2) /hpf U Hyaline Cast (Auto) >20 H (0-2) /lpf U Epithel Cells (Auto) >20 H (0-2) /hpf Urine Bacteria (Auto) None Seen (None Seen) Urine Comment 02/20/25 Range/Units 16:26 WBC 13.12 H (4.8-10.8) K/ul RBC 4.26 (4.20-5.40) M/uL Hgb 13.4 (12.0-16.0) g/dl Hct 37.8 (37.0-47.0) % MCV 88.7 (80.0-100.0) fL MCH 31.5 (25.0-34.0) pg MCHC 35.4 (32.0-36.0) g/dL RDW Std Deviation 49.9 H (36.4-46.3) fL RDW Coeff of Thien 15.3 H (11.5-14.5) % Plt Count 174 (130-400) K/uL MPV 11.4 (9.4-12.4) fL Immature Gran % (Auto) 0.5 % Neut % (Auto) 71.5 % Lymph % (Auto) 15.5 % [place] % (Auto) 10.0 % Eos % (Auto) 2.0 % Baso % (Auto) 0.5 % Neut # (Auto) 9.38 H (1.40-6.50) K/uL Lymph # (Auto) 2.04 (1.20-3.40) K/uL [place] # (Auto) 1.31 H (0.11-0.59) K/uL Eos # (Auto) 0.26 (0.00-0.50) K/uL Baso # (Auto) 0.06 (0.00-0.20) K/uL Immature Gran # (Auto) 0.07 (0.01-0.20) K/uL Sodium 140 (136-145) mmol/L Potassium 3.8 (3.5-5.1) mmol/L Chloride 105 (98-107) mmol/L Carbon Dioxide 24 (21-32) mmol/L Anion Gap 11 (3-11) BUN 34 H (6-23) mg/dl Creatinine 2.00 H (0.6-1.2) mg/dl Est Cr Clr Drug Dosing 19.6 ml/min eGFR 24.18 BUN/Creatinine Ratio 17.0 (10-20) Glucose 93 (70-99(Fasting)) mg/dl Calcium 11.9 H (8.6-10.3) mg/dl Ionized Calcium (1.12-1.32) mmol/L Phosphorus (2.5-4.9) mg/dl Magnesium 1.5 L (1.7-2.4) mg/dl Total Bilirubin 1.2 H (0.2-1.0) mg/dl AST 39 (13-39) U/L ALT 22 (7-52) U/L Alkaline Phosphatase 632 H (34-104) U/L Total Protein 5.7 L (6.0-8.3) gm/dl Albumin 3.4 (3.4-5.0) gm/dl Globulin 2.3 L (2.5-4.0) gm/dl Albumin/Globulin Ratio 1.5 (0.9-2) Lipase 9 L (11-82) U/L PTH Related Protein Urine Color Urine Appearance (Clear) Urine pH (4.5-7.5) Ur Specific [place] (1.000-1.030) Urine Protein (Negative) Urine Glucose (UA) (Negative) Urine Ketones (Negative) Urine Blood (Negative) Urine Nitrite (Negative) Urine Bilirubin (Negative) Urine Urobilinogen (Negative) Ur Leukocyte Esterase (Negative) Urine WBC (Auto) (0-5) /hpf Urine RBC (Auto) (0-2) /hpf U Hyaline Cast (Auto) (0-2) /lpf U Epithel Cells (Auto) (0-2) /hpf Urine Bacteria (Auto) (None Seen) Urine Comment Diagnostic Findings Head CT 02/20/25 16:28 Exam(s): CT HEAD Without Contrast EXAM: CT Head Without Intravenous Contrast CLINICAL HISTORY: Reason for exam: trouble walking. TECHNIQUE: Axial computed tomography images of the head/brain without intravenous contrast. CTDI is 38.17 mGy and DLP is 703.85 mGy-cm. Automated exposure control was utilized for the study. A dose lowering technique was utilized adhering to the principles of ALARA. COMPARISON: CT head on 12/12/2023 FINDINGS: Brain: No acute infarct or hemorrhage identified. No extra-axial fluid collection. No mass effect or midline shift. Scattered areas of hypoattenuation in the supratentorial white matter likely represent chronic small vessel ischemic changes. Stable small calcifications. Ventricles and sulci: Prominence of the ventricles and sulci is likely secondary to cerebral volume loss. Bones: Mild hyperostosis frontalis interna. No bony lesion or acute fracture. Subcutaneous tissues: Normal. Sinuses: Mild mucosal thickening in the left sphenoid sinus. Mastoid air cells: Fluid in the right mastoid air cells. Orbits: Bilateral lens implants. Calcifications in the posterior aspect of the globes. Other: Atherosclerotic calcifications in the intracranial vasculature. IMPRESSION: 1. No acute intracranial abnormality. Further evaluation could be performed with MRI if clinically indicated. 2. Chronic small vessel ischemic changes and cerebral volume loss. Electronically signed by: Arnulfo Hodgson M.D. 02/20/25 18:43 PM Chest X-Ray 02/20/25 16:29 Exam(s): XR CXR 1 VIEW EXAM: XR Chest, 1 View CLINICAL HISTORY: Weakness. TECHNIQUE: Frontal view of the chest. COMPARISON: Chest radiographs 10/05/2023 FINDINGS: Lungs: Unremarkable. No consolidation. Pleural space: Improved, now small right pleural effusion. Stable minimal left pleural effusion. No pneumothorax. Heart: Stable cardiac silhouette. Mediastinum: Unremarkable. Normal mediastinal contour. Bones/joints: Redemonstrated bilateral shoulder arthroplasties. There are degenerative changes of the spine. No acute fracture. Tubes, lines and devices: Stable right central venous catheter. IMPRESSION: Improved, now small right pleural effusion. Stable minimal left pleural effusion. Electronically signed by: Deidre Dawkins MD 02/20/25 17:16 PM Abdomen/Pelvis CT 02/20/25 19:21 Exam(s): CT ABDOMEN + PELVIS Without Contrast EXAM: CT Abdomen and Pelvis Without Intravenous Contrast CLINICAL HISTORY: Reason for exam: steve, kidney stones. TECHNIQUE: Axial computed tomography images of the abdomen and pelvis without intravenous contrast. CTDI is 21 mGy and DLP is 579 mGy-cm. Automated exposure control was utilized for the study. A dose lowering technique was utilized adhering to the principles of ALARA. COMPARISON: CT abdomen/pelvis on 02/08/2025 FINDINGS: Lung bases: Calcified granuloma in the right lower lobe. Lower lung atelectasis. Pleural space: Small right pleural effusion. ABDOMEN: Liver: Hepatomegaly. Hypoattenuating lesions throughout the liver, compatible with hepatic metastases. Gallbladder and bile ducts: Cholelithiasis. No ductal dilation. Pancreas: Atrophy of the pancreas. No ductal dilation. Spleen: Calcified granulomas in the spleen. Small hypodense lesions in the spleen are better visualized on the prior contrast-enhanced exam. Adrenals: Unremarkable. No mass. Kidneys and ureters: Nonobstructing bilateral renal stones. No hydronephrosis or obstructing ureteral stone. Small left renal cyst. No further follow-up necessary. Stomach and bowel: Evaluation of the stomach is limited by underdistention. Diverticulosis without evidence of diverticulitis. PELVIS: Appendix: Normal appendix. Bladder: Underdistended bladder limits evaluation. No stones. Reproductive: Prior hysterectomy. ABDOMEN and PELVIS: Intraperitoneal space: Unremarkable. No free air. No significant fluid collection. Bones/joints: Sclerotic metastases seen throughout the visualized bones. Possible hemangiomas versus lucent metastases in the spine. Intramedullary juan carlos and screw fixation partially seen in the left femur. Degenerative changes of the spine. Grade 1 anterolisthesis of L5 on S1. No acute fracture. No dislocation. Soft tissues: Calcification partially seen in the right breast. Vasculature: Phleboliths in the pelvis. Atherosclerotic changes of the vasculature. No abdominal aortic aneurysm. Lymph nodes: Unremarkable. No enlarged lymph nodes. IMPRESSION: 1. Hepatomegaly. Hypoattenuating lesions throughout the liver, compatible with hepatic metastases. 2. Sclerotic metastases seen throughout the visualized bones. 3. Small right pleural effusion. 4. Nonobstructing bilateral renal stones. No hydronephrosis or obstructing ureteral stone. 5. Cholelithiasis. Electronically signed by: Arnulfo Hodgson M.D. 02/20/25 21:01 PM PG Care Time/CCT Total # of Minutes Spent Total Time Spent with Patient: Total time spent is greater than 50% in coordination of care (as documented) at patient's floor/unit and/or counseling patient: I spent 130 minutes overall addressing this case: 25 min in medical data review/discussion with referring provider(s) and/or preparation for the visit incl OSH data review 15 min in direct interaction with the patient/exam 60 min in Advance Care Planning/Goals of Care discussions as detailed above in note (must be >16min) 15 min in subsequent review and synthesis of assessment and plan 15 min communicating with other providers regarding the patient's case: hospital med, STE[employer]ER G[employer] CANDY, CM, nursing, [facility] Advanced Care Planning 26113 Advanced Care Planning Additional 30 [place] [address] IN/OBS CONSULT LVL 5,80M (25 - SIGNIFICANT, SEPARATELY IDENTIFIABLE ) Patient Type New Medical Decision Making High Complexity Diagnoses Weakness generalized R53.1 Nausea & vomiting R11.2 Palliative care by specialist Z51.5 Advanced care planning/counseling discussion Z71.89 Dyspnea and respiratory abnormalities R06.00; R06.89 Additional Codes Advanced Care Planning - 22597 Advanced Care Planning Additional 30 Min: 60992 Advanced Care Planning Additional 30 Min ([id number]) Comment [id number], [id number]
--- NOTE | 2025-02-21 10:41 | Nephrology Consultation ---
Date of Consultation February 21, 2025 Assessment & Plan (1) ALCIRA (acute kidney injury): pre renal type form volume depletion in the setting of concomitant use of OTONIEL and HCTZ and now superimposed hypercalcemia of malignancy. this will keep happening. permanently stop HCTZ and OTONIEL--BP can be high in her setting. makes it less likely in her case to go into ALCIRA if she is not on OTONIEL and HCTZ labs have improved with IVF. Continue NS but will lower the rate to 100 mL/hour at least till morning tomorrow Monitor I and O. (2) Hypercalcemia: Sec to Underlying metastatic Cancer. Already gets Zometa as outpt. Ca did come down nicely overnight (3) Hypomagnesemia: give another 1 gm iv x 1 now (4) Metastatic cancer: Hypercalcemia malignancy is terminal and there is no utility in anything medical that is being done. none of the treatment will work anyway would recommend to Stop all meds and stop all treatment. Consider Hospice care. Of course this is my recommendation and final decision to be made by patient and her family and her oncologist. 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 Found to have acute kidney injury and hypercalcemia of malignancy. Creat was 2 and Ca was 11.9. has got iv fluids overnight and labs improved with creat down to 1.77 and Ca now 10.6. Making urine and so far 900 ml documented overnight. palliative med also consulted. vital signs appears fine--BP and HR and on RA with 95% baseline creat previously normal but recently 02/08 when she came to ED for similar complaints and was abnormal already creat 1.6 and Ca already slightly high at 11.3. heme-on recommended Reclast but was not given because of ALCIRA. About 6 weeks ago patient presented to [facility] with hematuria. Noted to have kidney stones. According to the [id number] patient's condition has steadily declined since then. She has had persistent nausea. Has decreased oral intake. She was seen at [facility] emergency room on 02/08/2025. She was noted to have some mild kidney injury and hypercalcemia that time also. She was given some IV fluids and she felt improved and was discharged home. Since then she has been at hematology office where she received IV fluids and Zometa in the outpatient transfusion center for hypercalcemia of malignancy. Despite these interventions patient continued to progressively get weaker. 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 ROS_-12 systems otherwise negative. see HPI Physical Exam Physical Exam: Constitutional: Alert, ill , frail, underweight HEENT: Mucous membranes dry. Neck: Soft, Non tender Lungs: Decreased breath sounds CV: S1-S2, regular Abdomen: Soft, nontender Extremities: No edema Neuro: No focal deficits, generally weak Psych: Cooperative, normal mood Allergies Allergy/AdvReac Type Severity Reaction Status Date / Time castor oil Allergy Severe ANAPHYLAXIS Verified 09/27/23 16:45 paclitaxel Allergy Severe ANAPHYLAXIS Verified 09/27/23 16:45 ciprofloxacin Allergy Intermediate HIVES/RASH Verified 09/27/23 16:45 codeine AdvReac Intermediate GI SYMPTOMS Verified 09/27/23 16:45 cyproheptadine AdvReac Intermediate LETHARGY Verified 09/27/23 16:45 doxepin AdvReac Intermediate LETHARGY Verified 09/27/23 16:45 gabapentin AdvReac Intermediate GI Verified 09/27/23 16:45 SYMPTOMS/"FEEL OUT OF IT" hydrocodone AdvReac Intermediate GI SYMPTOMS Verified 09/27/23 16:45 meloxicam AdvReac Intermediate DIZZINESS, Verified 09/27/23 16:45 HEADACHE, NAUSEA oxycodone AdvReac Intermediate GI SYMPTOMS Verified 09/27/23 16:45 prednisone AdvReac Intermediate ELEVATED Verified 09/27/23 16:46 GLUCOSE tramadol AdvReac Intermediate GI SYMPTOMS Verified 09/27/23 16:46 Home Medications Medication Instructions Recorded Confirmed Type albuterol sulfate 90 mcg/actuation 2 puff inhalation QID PRN SOB 06/23/18 02/20/25 History aerosol inhaler amlodipine 10 mg tablet 10 mg PO QAM 06/23/18 02/20/25 History atorvastatin 20 mg tablet 20 mg PO QAM 06/23/18 02/20/25 History colchicine 0.6 mg tablet 0.6 mg PO BID PRN GOUT 06/23/18 02/20/25 History tizanidine 4 mg capsule 4 mg PO TID PRN MUSCLE SPASMS 06/23/18 02/20/25 History fluticasone propionate 50 2 spray intranasal HS Congestion 12/19/19 02/20/25 History mcg/actuation nasal spray,suspension ondansetron HCl 8 mg tablet 8 mg PO Q8H PRN Nausea 12/19/19 02/20/25 History prochlorperazine maleate 10 mg 10 mg PO Q6H PRN Nausea 12/19/19 02/20/25 History tablet apixaban 5 mg tablet (Eliquis) 5 mg PO BID 12/30/21 02/20/25 History famotidine 20 mg tablet (Pepcid) 20 mg PO BID PRN Heartburn 12/30/21 02/20/25 History amoxicillin 500 mg capsule 2,000 mg PO DIRECTED PRN 1 HR 09/27/23 02/20/25 History PRIOR TO DENTAL PROCEDURES cholecalciferol (vitamin D3) 50 2,000 unit PO DAILY 09/27/23 02/20/25 History mcg (2,000 unit) capsule (Vitamin D3) fexofenadine 180 mg tablet 180 mg PO DAILY PRN ALLERGY 09/27/23 02/20/25 History SYPMTOMS hydrochlorothiazide 12.5 mg tablet 12.5 mg PO QAM 09/27/23 02/20/25 History lisinopril 40 mg tablet 40 mg PO QAM 09/27/23 02/20/25 History magnesium oxide 400 mg PO DAILY 09/27/23 02/20/25 History meclizine 25 mg tablet 25 mg PO TID PRN Dizziness 09/27/23 02/20/25 History potassium citrate 10 mEq (1,080 10 meq PO BID 09/27/23 02/20/25 History mg) tablet,extended release L.acidop,casei,lactis,rham-B.lact,esther 1 cap PO DAILY #10 caps 10/08/23 02/20/25 Rx 625 mg (10 billion cell) capsule (Advanced Probiotic) acetaminophen 325 mg tablet 650 mg (2 x 325 mg) PO Q6H PRN 10/08/23 02/20/25 Rx pain #14 tabs aspirin 81 mg tablet,delayed 81 mg PO QAM #30 tabs 10/08/23 02/20/25 Rx release cefdinir 300 mg capsule 300 mg PO BID #4 caps 10/08/23 02/20/25 Rx doxycycline hyclate 100 mg capsule 100 mg PO BID #4 caps 10/08/23 02/20/25 Rx guaifenesin 600 mg tablet, 600 mg PO Q12 #10 tabs 10/08/23 02/20/25 Rx extended release 12 hr (Mucinex) metoprolol succinate 50 mg 50 mg PO BID #60 tabs 10/08/23 02/20/25 Rx tablet,extended release 24 hr citalopram 10 mg tablet (Celexa) 10 mg PO DAILY 3 months #90 tabs 08/01/24 02/20/25 Rx metoclopramide HCl 5 mg tablet 5 mg PO DAILY PRN nausea and 02/08/25 02/20/25 Rx (Reglan) vomiting #10 tabs Patient History Medical History History of Clostridioides difficile infection After abx, s/p vanco completed 12/31- diarrhea resolved per PAT visit 01/01 Pulmonary embolism 2020, reason for Eliquis; f/u dr morgan, [facility] once/year Sleep apnea Remote hx- no device currently ("lost device") History of bronchitis Reason for inhaler PRN, no recent issues Osteoporosis History of skin cancer Nose and left leg (s/p excision) History of breast cancer s/p chemo, left mastectomy; limb restriction lt arm History of lung cancer s/p RUL wedge resection NSCLC - on Osimertinib (Tagrisso) per heme/onc History of uterine cancer s/p Hysterectomy History of kidney stones Kidney disease Stage III Acid reflux Anxiety Gout Hx Hypertension Surgical History Hx of myringotomy Right ear tube 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, seeing ear sx on 03/13/22" Hx of cataract extraction R/L History of open reduction and internal fixation (ORIF) procedure Left femur fracture ORIF (12/21/19): SAB at L3/4 (x2 attempts) at [facility] History of surgery A-PORT (RIGHT) PLACED 2/2 CHEMO; Rt chest History of colonoscopy History of tonsillectomy and adenoidectomy History of total right knee replacement 05/19/17= SAB X 1 ATTEMPT + PNB AT [facility] History of left mastectomy History of lung surgery RIGHT LUNG NODULE EXCISION/PARTIAL LUNG RESECTION History of hysterectomy Family History Mother History of breast cancer History of ovarian cancer Grandmother History of colon cancer Social History Smoking Status: Never smoker Second Hand Exposure: Yes ( used to smoke); Do You Dip or Chew Tobacco: No; Hx Alcohol Use: No Hx Substance Use: No Preferred Language: Tristanian Communication Ability: Effective Contract Accountant Required: No Beliefs That Will Affect Care: None marital status: Current Living Situation: Alone Current Living Situation Comment: lives in house Feels Safe at Home: Yes Safety Concerns: Feels Safe At This Time Assistive Devices: Cane and Walker Results & Data Vital Signs (Past 12 Hours) Vital Signs Pulse Pulse Resp BP BP Pulse Ox O2 Del Method 02/21/25 08:00 88 18 127/83 95 Room Air 02/21/25 07:18 135 H 02/21/25 06:44 116 H 18 133/98 95 Room Air 02/21/25 06:14 141 H 159/96 H 02/21/25 05:54 131 H 19 136/93 92 Room Air 02/21/25 02:47 73 18 182/100 H 95 Room Air 02/20/25 23:57 92 H 20 134/83 96 Room Air 02/20/25 23:00 84 20 152/81 H 94 Laboratory Results CBC, renal panel
[2025-02-21] MEDS: APIXABAN 2.5 MG TAB PO ONE (11:23)
[2025-02-21] MEDS: APIXABAN 5 MG TABLET PO SCH ×2 (11:29→21:25)
[2025-02-21] MEDS: POLYETHYLENE (MIRALAX) 17 GM PACK PO SCH (11:33)
[2025-02-21] MEDS ORDERED: METOCLOPRAMIDE HCL 5 MG TABLET PO PRN (14:26)
[2025-02-21] MEDS ORDERED: POLYETHYLENE (MIRALAX) 17 GM PACK PO PRN (14:27)
[2025-02-21] MEDS: MAGNESIUM SULFATE / D5W 1 GM/100 ML BAG IV ONE (15:32)
[2025-02-22 07:26] LABS: Hematocrit (blood only) 34.8 % (37.0-47.0); Hemoglobin 12.4 g/dl (12.0-16.0); Mean Corpuscular Hemoglobin 31.4 pg (25.0-34.0); Mean Corpuscular Volume 88.1 fL (80.0-100.0); Platelet Count 120 K/uL (130-400); RDW Standard Deviation 48.8 fL (36.4-46.3); Red Blood Count 3.95 M/uL (4.20-5.40); White Blood Count 14.76 K/ul (4.8-10.8)
[2025-02-22 07:43] LABS: Anion Gap 7.0 (3-11); Blood Urea Nitrogen 18.0 mg/dl (6-23); Calcium 8.3 mg/dl (8.6-10.3); Carbon Dioxide 24.0 mmol/L (21-32); Chloride 107.0 mmol/L (98-107); Creatinine Clr Calc Pharmacy 32.4 ml/min; Glucose 70.0 mg/dl (70-99(Fasting)); Magnesium 1.7 mg/dl (1.7-2.4); Potassium 3.2 mmol/L (3.5-5.1); Sodium 138.0 mmol/L (136-145)
[2025-02-22] MEDS ORDERED: FAMOTIDINE 20 MG TAB PO PRN (08:13)
[2025-02-22] MEDS: POTASSIUM CHLORIDE 20 MEQ/15 ML UDC PO STA (08:55)
[2025-02-22] MEDS: MAGNESIUM SULFATE / D5W 1 GM/100 ML BAG IV SCH (08:59)
--- NOTE | 2025-02-22 13:52 | Palliative Care Progress Note ---
Date of Service February 22, 2025 Assessment & Plan (1) Nausea & vomiting: Plan: Better today but did not tolerate liquid potassium - made her more nauseated. (2) Weakness generalized: Plan: She is open to resuming OP PT in [place] but wheeler snot want SNF rehab or acute IP rehab (3) Palliative care by specialist: (4) Hypercalcemia: Plan: Ca lower today = 8.6 Plan Family meeting later today - please see separate FM note Less nauseated today but liquid K is not to her liking - recc resuming tablet/crush into pudding of choice. Thank you for allowing us to participate in the ongoing care of this patient. Please page with any additional concerns. Kira Mann DNP Director, Palliative Medicine Admission and Anticipated Discharge Date Admission Date: February 21, 2025 Subjective Dianne is feeling better this morning but liquid K made her feel more nauseated She was able to eat most of her breakfast and maybe about 50% of lunch denies swallowing issues today breathing comfortably anticipating family visit today for meeting around 230pm Review of Systems Review of Systems: All systems reviewed & are unremarkable except as noted in Subjective Physical Exam Physical Exam: Bitemp wasting Ill appearing, frail less resp distress than yesterday, less use of accessory muscles Neck supple, no stridor Lungs diminished, mild inc effort S1S2 Abd soft, no guarding Gen weakness OA joint changes AAOx3 +fine tremor skin +pallor Results & Data Vital Signs (Past 12 Hours) Vital Signs Temp Pulse Resp BP Pulse Ox O2 Del Method 02/22/25 08:07 36.5 C 101 H 18 128/93 99 Room Air Laboratory Results 02/22/25 02/21/25 02/21/25 Range/Units 06:47 09:54 05:16 WBC 14.76 H 15.27 H (4.8-10.8) K/ul RBC 3.95 L 4.46 (4.20-5.40) M/uL Hgb 12.4 13.3 (12.0-16.0) g/dl Hct 34.8 L 39.8 (37.0-47.0) % MCV 88.1 89.2 (80.0-100.0) fL MCH 31.4 29.8 (25.0-34.0) pg MCHC 35.6 33.4 (32.0-36.0) g/dL RDW Std Deviation 48.8 H 50.1 H (36.4-46.3) fL RDW Coeff of Thien 15.2 H 15.4 H (11.5-14.5) % Plt Count 120 L 150 (130-400) K/uL MPV 11.3 11.5 (9.4-12.4) fL Immature Gran % (Auto) % Neut % (Auto) % Lymph % (Auto) % Bent % (Auto) % Eos % (Auto) % Baso % (Auto) % Neut # (Auto) (1.40-6.50) K/uL Lymph # (Auto) (1.20-3.40) K/uL Bent # (Auto) (0.11-0.59) K/uL Eos # (Auto) (0.00-0.50) K/uL Baso # (Auto) (0.00-0.20) K/uL Immature Gran # (Auto) (0.01-0.20) K/uL Sodium 138 140 (136-145) mmol/L Potassium 3.2 L 3.4 L (3.5-5.1) mmol/L Chloride 107 106 (98-107) mmol/L Carbon Dioxide 24 26 (21-32) mmol/L Anion Gap 7 8 (3-11) BUN 18 27 H (6-23) mg/dl Creatinine 1.21 H D 1.77 H (0.6-1.2) mg/dl Est Cr Clr Drug Dosing 32.4 22.1 ml/min eGFR 44.19 28.00 BUN/Creatinine Ratio 14.9 15.3 (10-20) Glucose 70 86 (70-99(Fasting)) mg/dl Calcium 8.3 L D 10.6 H (8.6-10.3) mg/dl Ionized Calcium 1.14 1.39 H (1.12-1.32) mmol/L Phosphorus 2.5 (2.5-4.9) mg/dl Magnesium 1.7 2.2 (1.7-2.4) mg/dl Total Bilirubin (0.2-1.0) mg/dl AST (13-39) U/L ALT (7-52) U/L Alkaline Phosphatase (34-104) U/L Total Protein (6.0-8.3) gm/dl Albumin (3.4-5.0) gm/dl Globulin (2.5-4.0) gm/dl Albumin/Globulin Ratio (0.9-2) Lipase (11-82) U/L PTH Related Protein Pending Urine Color Urine Appearance (Clear) Urine pH (4.5-7.5) Ur Specific Wilmot (1.000-1.030) Urine Protein (Negative) Urine Glucose (UA) (Negative) Urine Ketones (Negative) Urine Blood (Negative) Urine Nitrite (Negative) Urine Bilirubin (Negative) Urine Urobilinogen (Negative) Ur Leukocyte Esterase (Negative) Urine WBC (Auto) (0-5) /hpf Urine RBC (Auto) (0-2) /hpf U Hyaline Cast (Auto) (0-2) /lpf U Epithel Cells (Auto) (0-2) /hpf Urine Bacteria (Auto) (None Seen) Urine Comment 02/20/25 02/20/25 Range/Units Unknown 16:26 WBC 13.12 H (4.8-10.8) K/ul RBC 4.26 (4.20-5.40) M/uL Hgb 13.4 (12.0-16.0) g/dl Hct 37.8 (37.0-47.0) % MCV 88.7 (80.0-100.0) fL MCH 31.5 (25.0-34.0) pg MCHC 35.4 (32.0-36.0) g/dL RDW Std Deviation 49.9 H (36.4-46.3) fL RDW Coeff of Thien 15.3 H (11.5-14.5) % Plt Count 174 (130-400) K/uL MPV 11.4 (9.4-12.4) fL Immature Gran % (Auto) 0.5 % Neut % (Auto) 71.5 % Lymph % (Auto) 15.5 % Bent % (Auto) 10.0 % Eos % (Auto) 2.0 % Baso % (Auto) 0.5 % Neut # (Auto) 9.38 H (1.40-6.50) K/uL Lymph # (Auto) 2.04 (1.20-3.40) K/uL Bent # (Auto) 1.31 H (0.11-0.59) K/uL Eos # (Auto) 0.26 (0.00-0.50) K/uL Baso # (Auto) 0.06 (0.00-0.20) K/uL Immature Gran # (Auto) 0.07 (0.01-0.20) K/uL Sodium 140 (136-145) mmol/L Potassium 3.8 (3.5-5.1) mmol/L Chloride 105 (98-107) mmol/L Carbon Dioxide 24 (21-32) mmol/L Anion Gap 11 (3-11) BUN 34 H (6-23) mg/dl Creatinine 2.00 H (0.6-1.2) mg/dl Est Cr Clr Drug Dosing 19.6 ml/min eGFR 24.18 BUN/Creatinine Ratio 17.0 (10-20) Glucose 93 (70-99(Fasting)) mg/dl Calcium 11.9 H (8.6-10.3) mg/dl Ionized Calcium (1.12-1.32) mmol/L Phosphorus (2.5-4.9) mg/dl Magnesium 1.5 L (1.7-2.4) mg/dl Total Bilirubin 1.2 H (0.2-1.0) mg/dl AST 39 (13-39) U/L ALT 22 (7-52) U/L Alkaline Phosphatase 632 H (34-104) U/L Total Protein 5.7 L (6.0-8.3) gm/dl Albumin 3.4 (3.4-5.0) gm/dl Globulin 2.3 L (2.5-4.0) gm/dl Albumin/Globulin Ratio 1.5 (0.9-2) Lipase 9 L (11-82) U/L PTH Related Protein Urine Color Dark Yellow Urine Appearance Cloudy A (Clear) Urine pH 5.5 (4.5-7.5) Ur Specific Wilmot 1.025 (1.000-1.030) Urine Protein 2+ H (Negative) Urine Glucose (UA) Negative (Negative) Urine Ketones Negative (Negative) Urine Blood 3+ H (Negative) Urine Nitrite Negative (Negative) Urine Bilirubin 1+ H (Negative) Urine Urobilinogen Negative (Negative) Ur Leukocyte Esterase Trace H (Negative) Urine WBC (Auto) 21-50 H (0-5) /hpf Urine RBC (Auto) >20 H (0-2) /hpf U Hyaline Cast (Auto) >20 H (0-2) /lpf U Epithel Cells (Auto) >20 H (0-2) /hpf Urine Bacteria (Auto) None Seen (None Seen) Urine Comment Diagnostic Findings Head CT 02/20/25 16:28 Exam(s): CT HEAD Without Contrast EXAM: CT Head Without Intravenous Contrast CLINICAL HISTORY: Reason for exam: trouble walking. TECHNIQUE: Axial computed tomography images of the head/brain without intravenous contrast. CTDI is 38.17 mGy and DLP is 703.85 mGy-cm. Automated exposure control was utilized for the study. A dose lowering technique was utilized adhering to the principles of ALARA. COMPARISON: CT head on 12/12/2023 FINDINGS: Brain: No acute infarct or hemorrhage identified. No extra-axial fluid collection. No mass effect or midline shift. Scattered areas of hypoattenuation in the supratentorial white matter likely represent chronic small vessel ischemic changes. Stable small calcifications. Ventricles and sulci: Prominence of the ventricles and sulci is likely secondary to cerebral volume loss. Bones: Mild hyperostosis frontalis interna. No bony lesion or acute fracture. Subcutaneous tissues: Normal. Sinuses: Mild mucosal thickening in the left sphenoid sinus. Mastoid air cells: Fluid in the right mastoid air cells. Orbits: Bilateral lens implants. Calcifications in the posterior aspect of the globes. Other: Atherosclerotic calcifications in the intracranial vasculature. IMPRESSION: 1. No acute intracranial abnormality. Further evaluation could be performed with MRI if clinically indicated. 2. Chronic small vessel ischemic changes and cerebral volume loss. Electronically signed by: Arnulfo Hodgson M.D. 02/20/25 18:43 PM Chest X-Ray 02/20/25 16:29 Exam(s): XR CXR 1 VIEW EXAM: XR Chest, 1 View CLINICAL HISTORY: Weakness. TECHNIQUE: Frontal view of the chest. COMPARISON: Chest radiographs 10/05/2023 FINDINGS: Lungs: Unremarkable. No consolidation. Pleural space: Improved, now small right pleural effusion. Stable minimal left pleural effusion. No pneumothorax. Heart: Stable cardiac silhouette. Mediastinum: Unremarkable. Normal mediastinal contour. Bones/joints: Redemonstrated bilateral shoulder arthroplasties. There are degenerative changes of the spine. No acute fracture. Tubes, lines and devices: Stable right central venous catheter. IMPRESSION: Improved, now small right pleural effusion. Stable minimal left pleural effusion. Electronically signed by: Deidre Dawkins MD 02/20/25 17:16 PM Abdomen/Pelvis CT 02/20/25 19:21 Exam(s): CT ABDOMEN + PELVIS Without Contrast EXAM: CT Abdomen and Pelvis Without Intravenous Contrast CLINICAL HISTORY: Reason for exam: steve, kidney stones. TECHNIQUE: Axial computed tomography images of the abdomen and pelvis without intravenous contrast. CTDI is 21 mGy and DLP is 579 mGy-cm. Automated exposure control was utilized for the study. A dose lowering technique was utilized adhering to the principles of ALARA. COMPARISON: CT abdomen/pelvis on 02/08/2025 FINDINGS: Lung bases: Calcified granuloma in the right lower lobe. Lower lung atelectasis. Pleural space: Small right pleural effusion. ABDOMEN: Liver: Hepatomegaly. Hypoattenuating lesions throughout the liver, compatible with hepatic metastases. Gallbladder and bile ducts: Cholelithiasis. No ductal dilation. Pancreas: Atrophy of the pancreas. No ductal dilation. Spleen: Calcified granulomas in the spleen. Small hypodense lesions in the spleen are better visualized on the prior contrast-enhanced exam. Adrenals: Unremarkable. No mass. Kidneys and ureters: Nonobstructing bilateral renal stones. No hydronephrosis or obstructing ureteral stone. Small left renal cyst. No further follow-up necessary. Stomach and bowel: Evaluation of the stomach is limited by underdistention. Diverticulosis without evidence of diverticulitis. PELVIS: Appendix: Normal appendix. Bladder: Underdistended bladder limits evaluation. No stones. Reproductive: Prior hysterectomy. ABDOMEN and PELVIS: Intraperitoneal space: Unremarkable. No free air. No significant fluid collection. Bones/joints: Sclerotic metastases seen throughout the visualized bones. Possible hemangiomas versus lucent metastases in the spine. Intramedullary juan carlos and screw fixation partially seen in the left femur. Degenerative changes of the spine. Grade 1 anterolisthesis of L5 on S1. No acute fracture. No dislocation. Soft tissues: Calcification partially seen in the right breast. Vasculature: Phleboliths in the pelvis. Atherosclerotic changes of the vasculature. No abdominal aortic aneurysm. Lymph nodes: Unremarkable. No enlarged lymph nodes. IMPRESSION: 1. Hepatomegaly. Hypoattenuating lesions throughout the liver, compatible with hepatic metastases. 2. Sclerotic metastases seen throughout the visualized bones. 3. Small right pleural effusion. 4. Nonobstructing bilateral renal stones. No hydronephrosis or obstructing ureteral stone. 5. Cholelithiasis. Electronically signed by: Arnulfo Hodgson M.D. 02/20/25 21:01 PM PG Care Time/CCT Total # of Minutes Spent Total Time Spent: 55 Total Time Spent with Patient: Total time spent is greater than 50% in coordination of care (as documented) at patient's floor/unit and/or counseling patient: Coding [place] [address] SUB INP/OBS CARE 3/50MIN Patient Type Established History Comprehensive Exam Comprehensive Medical Decision Making High Complexity Diagnoses Nausea & vomiting R11.2 Weakness generalized R53.1 Palliative care by specialist Z51.5 Hypercalcemia E83.52
--- NOTE | 2025-02-22 14:55 | Nephrology Progress Note ---
Date of Service February 22, 2025 Assessment & Plan (1) ALCIRA (acute kidney injury): Plan: resolved pre renal type / volume depletion stage 1 nonoliguric ALCIRA in the setting of concomitant use of OTONIEL and HCTZ and now superimposed hypercalcemia of malignancy. baseline 1.1-1.2. this will keep happening >> for the moment stop HCTZ and OTONIEL--BP can be high in her setting. labs have improved with IVF; no further IVF needed for now Monitor I and O. marked HTN >> may need to consider revising BP meds depending on overall dispo wrt hospice stable chronic leukocytosis (2) Hypercalcemia: Plan: Sec to Underlying metastatic Cancer. Already gets Zometa as outpt. Ca did come down nicely overnight to normal range today (3) Hypomagnesemia: Plan: mag 1.7 today; at goal (4) Metastatic cancer: Plan: Hypercalcemia malignancy is terminal and there is no utility in anything medical that is being done. none of the treatment will work anyway would recommend to Stop all meds and stop all treatment. Consider Hospice care. Of course this is my recommendation and final decision to be made by patient and her family and her oncologist >palliative following for goals of care discussions Admission and Anticipated Discharge Date Admission Date: February 21, 2025 Subjective calcium normalized today; feeling somewhat better > less N; no sob, no edema, no new/worrisome voiding sx Review of Systems 2 Review of Systems: All systems reviewed & are unremarkable except as noted in Subjective Physical Exam 2 Constitutional: well developed and well nourished Eyes: EOM intact bilaterally ENMT: Mouth: + dry oral mucous membranes Respiratory: normal respiratory effort Auscultation: + diminished lung sounds Gastrointestinal (Abdomen): Inspection/Auscultation: normal bowel sounds P ercussion/Palpation: abdomen soft; abdomen nontender Musculoskeletal: Extremities: strength 5/5 throughout Skin: no rashes, warm and dry Neurologic: do, fluent speech, no tremor Results & Data Vital Signs (Past 12 Hours) Vital Signs Temp Pulse Resp BP Pulse Ox O2 Del Method 02/22/25 08:07 36.5 C 101 H 18 128/93 99 Room Air Laboratory Results 02/22/25 06:47 02/22/25 06:47 calcium 8.3
--- NOTE | 2025-02-22 15:53 | Hospitalist Progress Note ---
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 Found to have acute kidney injury, hypercalcemia of malignancy and other electrolyte abnormalities. ALICRA on CKD Baseline creat 1.0 Creat on admission 2.0-> 1.77-> 1.21 today Pre renal in the setting of volume depletion and nephrotoxic agents Nephrology consulted and recommending permanent stop HCTZ and ACEI-> discontinue at dc Recheck BMP in am Hypercalcemia of malignancy Received Zometa outpatient for Ca 12.2 on 02/10/2025 Ca on admission 11.9-> 10.6-> 8.3 today Nephrology following Recheck BMP in am Metastatic non small cell lung cancer to multiple sites Malignant pleural effusion Follows with Dr Linton of [facility] Recurrent adenocarcinoma of the lung with recurrent disease involving the right lung, mediastinum, right hilar region, liver, bones, right pleural effusion Confirmed metastatic lung cancer via liver biopsy in September 2023 Current treatment with Tagrisso since October 2023 Palliative care consulted: --Family meeting today 02/22 - see note from Dr Dedra Mann - plan to dc home tomorrow with referral for [facility] and close follow up with PCP, Palliative, Nephrology, Oncology Weakness Ambulatory dysfunction Patient does not desire inpatient rehab or SNF at this time Will dc home with referral to [facility] with alternative plan for outpatient PT that can be ordered by PCP Atrial fibrillation History of PE Short bout of RVR 02/21 s/p metoprolol tartrate 5mg IV and rate controlled since then Continue Eliquis and metoprolol Hypertension HCTZ and lisinopril stopped due to ALCIRA as recommended by Nephrology Continue amlodipine, metoprolol Hyperlipidemia Continue atorvastatin GERD Continue PPI and famotidine Anxiety Continue citalopram DVT Prophylaxis: on Eliquis Code Status: FULL CODE PCP: Hank Ivey Disposition: dc home tomorrow with son and daughter in law Patient seen in collaboration with Dr. Moreno. Please see addendum. I spent a total of 60 minutes coordinating, documenting and providing care for this patient excluding time spent in the performance of separately billed services or time spent by another provider/QHP. Admission and Anticipated Discharge Date Admission Date: February 21, 2025 Supervising Physician Co-Signing Physician Notes Patient is seen and examined at bedside. States feeling better today. Appetite slowly improving. Had family meeting with hospice today. No nausea, vomiting, chest pain, dyspnea today. On exam patient is chronically appearing, elderly, no apparent distress, normocephalic atraumatic, EOMI, decreased breath sounds, clear to auscultation, irregularly irregular, no murmur, no pedal edema, abdomen soft, nontender, normal bowel sounds, alert, awake, oriented, grossly no focal deficits, decreased hearing. Patient is currently being managed for ALCIRA on CKD, hypercalcemia secondary to metastatic disease, transient A-fib RVR. A-fib RVR resolved after IV Lopressor. Continue metoprolol 50 mg twice a day. Monitor and replete electrolytes as needed. Patient already received Zometa as outpatient. Calcium levels improved after IV fluids. Appreciate nephrology palliative care, input. HCTZ, OTONIEL discontinued due to ALCIRA per recommendations from nephrology. Monitor renal function and avoid nephrotoxic agents as able. Renal function improving. Plan to discharge home with home health tomorrow. Will add clonidine as needed for better blood pressure control. I personally interviewed and examined the patient at bedside. I have reviewed the advanced practitioner's documentation on the date of service referred in note and agree with plan. Patient's care is coordinated with Sumi YEH. Please refer to the documentation above for details of patient's presentation and for discussion of other issues. I spent a total [id number] coordinating, documenting, and providing care for this patient excluding time spent in the performance of separately billed services or time spent by another provider/QHP. Subjective Patient seen sitting in chair Reports she is feeling better, stronger this morning Assisted to chair and ate all of breakfast Denies chest pain, SOB, abdominal pain, N/V/D Review of Systems Review of Systems: All systems reviewed & are unremarkable except as noted in HPI & below Physical Exam Physical Exam: General/Psych: ill appearing, frail, sitting up in bed, conversing easily Head: normocephalic, atraumatic Eyes: normal inspection, PERRL, conjunctivae pink, anicteric sclerae ENT: external ear and nose normal, oropharynx normal Neck: normal visual inspection, trachea midline Respiratory: normal respiratory effort, lungs clear to auscultation, no wheeze/rales/rhonchi, no accessory muscle use Cardiovascular: regular rate and rhythm, no murmur/rub/gallop Extremities: no cyanosis or clubbing, normal peripheral pulses, no BLE edema Abdomen/GI: normal bowel sounds, soft, nontender Neurologic/MSK: A+Ox3, motor strength 5/5, moves all extremities Skin: no rashes, normal color, warm and dry Results & Data Results & Data Vital Signs (Past 12 Hours) Vital Signs Temp Pulse Resp BP BP Pulse Ox O2 Del Method 02/22/25 15:35 36.4 C L 67 17 181/82 H 95 Room Air 02/22/25 08:07 36.5 C 101 H 18 128/93 99 Room Air Laboratory Results Short CBC 02/22/25 Range/Units 06:47 WBC 14.76 H (4.8-10.8) K/ul Hgb 12.4 (12.0-16.0) g/dl Hct 34.8 L (37.0-47.0) % Plt Count 120 L (130-400) K/uL BMP 02/22/25 06:47 Sodium 138 Potassium 3.2 L Chloride 107 Carbon Dioxide 24 BUN 18 Creatinine 1.21 H D Glucose 70 Calcium 8.3 L D I have independently reviewed and interpreted patient's labs including CBC and BMP. Medications Administered Current Inpatient Medications Acetaminophen (Acetaminophen 325 Mg Tab) 650 mg PO Q4H PRN PRN Reason: pain/fever Stop: 03/22/25 23:28 Al Hydrox/Mg Hydrox/Simethicone (Aluminum/Magnesium Susp 30 Ml Udc) 30 ml PO Q6H PRN PRN Reason: Dyspepsia Stop: 03/22/25 23:28 Amlodipine Besylate (Amlodipine Besylate 5 Mg Tab) 10 mg PO QAM BERNARDA Stop: 03/23/25 08:59 Last Admin: 02/22/25 08:13 Dose: 10 mg Apixaban (Apixaban 5 Mg Tablet) 5 mg PO BID [facility] Stop: 03/23/25 20:59 Last Admin: 02/22/25 08:13 Dose: 5 mg Aspirin (Aspirin 81 Mg Ectab) 81 mg PO QAM [facility] Stop: 03/23/25 08:59 Last Admin: 02/22/25 08:13 Dose: 81 mg Citalopram Hydrobromide (Citalopram 20 Mg Tab) 10 mg PO DAILY [facility] Stop: 03/23/25 08:59 Last Admin: 02/22/25 08:13 Dose: 10 mg Famotidine (Famotidine 20 Mg Tab) 10 mg PO BID PRN PRN Reason: DYSPEPSIA Stop: 03/24/25 08:12 Magnesium Oxide (Magnesium Oxide 400 Mg Tab) 400 mg PO BID [facility] Stop: 03/22/25 23:28 Last Admin: 02/22/25 08:13 Dose: 400 mg Metoclopramide HCl (Metoclopramide Hcl 5 Mg Tablet) 5 mg PO DAILY PRN PRN Reason: nausea and vomiting Stop: 03/23/25 14:29 Metoprolol Succinate (Metoprolol Succ 25mg Ext Rel Tab) 75 mg PO BID [facility] Stop: 03/23/25 07:04 Last Admin: 02/22/25 08:13 Dose: 75 mg Polyethylene Glycol (Polyethylene (Miralax) 17 Gm Pack) 17 gm PO DAILY PRN PRN Reason: Constipation Stop: 03/23/25 08:59 Potassium Citrate (Potassium Citrate 10 Meq Tab) 10 meq PO BID [facility] Stop: 03/22/25 23:28 Last Admin: 02/22/25 08:13 Dose: 10 meq
[2025-02-22] MEDS: METOPROLOL SUCC 50MG EXT REL TAB PO SCH (21:06)
[2025-02-23 07:02] VITALS: BP 148/86; PULSE 62; RESP 18; TEMP 98.6; O2SAT 96
[2025-02-23 07:15] LABS: Hematocrit (blood only) 36.3 % (37.0-47.0); Hemoglobin 12.9 g/dl (12.0-16.0); Mean Corpuscular Hemoglobin 31.2 pg (25.0-34.0); Mean Corpuscular Volume 87.9 fL (80.0-100.0); Platelet Count 125 K/uL (130-400); RDW Standard Deviation 49.8 fL (36.4-46.3); Red Blood Count 4.13 M/uL (4.20-5.40); White Blood Count 13.84 K/ul (4.8-10.8)
[2025-02-23 07:30] LABS: Anion Gap 10.0 (3-11); Blood Urea Nitrogen 16.0 mg/dl (6-23); Calcium 8.6 mg/dl (8.6-10.3); Carbon Dioxide 22.0 mmol/L (21-32); Chloride 105.0 mmol/L (98-107); Creatinine Clr Calc Pharmacy 35.6 ml/min; Glucose 72.0 mg/dl (70-99(Fasting)); Magnesium 1.8 mg/dl (1.7-2.4); Potassium 3.4 mmol/L (3.5-5.1); Sodium 137.0 mmol/L (136-145)
--- NOTE | 2025-02-23 11:55 | Hospitalist Progress Note ---
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 Found to have acute kidney injury, hypercalcemia of malignancy and other electrolyte abnormalities. ALCIRA on CKD III Baseline creat 1.1-1.2 Presented with creatinine 2.0>>1.7>1.2>1.1 Pre renal in the setting of volume depletion and nephrotoxic agents HCTZ, OTONIEL discontinued Received IV fluids Monitor urine output Appreciate nephrology input Plan to be discharged home with home health Hypercalcemia of malignancy Parathyroid like peptide pending Had outpatient PTH, vitamin D levels Received Zometa outpatient for Ca 12.2 on 02/10/2025 Ca on admission 11.9-> 10.6-> 8.6 today Hypercalcemia resolved with fluids Metastatic non small cell lung cancer to multiple sites Malignant pleural effusion Follows with Dr Lniton of [facility] Oncology Recurrent adenocarcinoma of the lung with recurrent disease involving the right lung, mediastinum, right hilar region, liver, bones, right pleural effusion Confirmed metastatic lung cancer via liver biopsy in September 2023 Current treatment with Tagrisso since October 2023 Palliative care consulted: --Family meeting 02/22 - see note from Dr Dedra Mann - plan to dc home today with referral for Home Health and close follow up with PCP, Palliative, Nephrology, Oncology Weakness Ambulatory dysfunction Patient not interested in rehab placement Plan to discharge home with home health for outpatient PT Atrial fibrillation History of PE Short bout of RVR 02/21 s/p metoprolol tartrate 5mg IV and rate controlled since then Continue Eliquis and metoprolol Hypertension HCTZ and lisinopril stopped due to ALCIRA as recommended by Nephrology Continue amlodipine, metoprolol Monitor blood pressure Hyperlipidemia Continue atorvastatin GERD Continue PPI and famotidine Anxiety Continue citalopram DVT Prophylaxis: on Eliquis Code Status: FULL CODE PCP: Hank Ivey Disposition: Home with home health Admission and Anticipated Discharge Date Admission Date: February 21, 2025 Subjective Patient is seen and examined at bedside Reports chronic nausea but otherwise no complaints Prefers to be discharged home with home health Appetite improved Denies any chest pain, dyspnea, dizziness Tolerating current diet Review of Systems Review of Systems: All systems reviewed & are unremarkable except as noted in Subjective Physical Exam Physical Exam: Physical Exam: Vitals signs as noted above General Appearance:Moderately built and nourished, no apparent distress, chronic ill-appearing, elderly Head: normocephalic, Atraumatic Eyes: normal inspection, EOMI Neck: supple, Trachea midline Respiratory/Chest: Decreased breath sounds, CTA, No accessory muscle use Cardiovascular: Irregularly irregular, no murmur Abdomen/GI:Soft, Non tender, Bowel sounds present Extremities/Musculoskeletal:normal inspection, no edema Neurologic/Psych:AAOX3, grossly no focal neurological deficits, decreased hearing Skin: normal color, warm Results & Data Results & Data Vital Signs (Past 12 Hours) Vital Signs Temp Pulse Resp BP BP Pulse Ox O2 Del Method 02/23/25 07:01 37.0 C 62 18 148/86 H 96 Room Air 02/22/25 23:53 163/80 H Laboratory Results Short CBC 02/23/25 Range/Units 06:37 WBC 13.84 H (4.8-10.8) K/ul Hgb 12.9 (12.0-16.0) g/dl Hct 36.3 L (37.0-47.0) % Plt Count 125 L (130-400) K/uL BMP 02/23/25 06:37 Sodium 137 Potassium 3.4 L Chloride 105 Carbon Dioxide 22 BUN 16 Creatinine 1.10 Glucose 72 Calcium 8.6
--- NOTE | 2025-02-23 12:01 | Discharge Summary ---
Date of Service February 23, 2025 Admission HPI Per Admitting Provider Patient is 84-year-old female with known metastatic adenocarcinoma of the lung that has reoccurred in the mediastinum and right hilar area, liver and bones.About 6 weeks ago patient presented to [facility] with hematuria. Noted to have kidney stones. According to the [id number] at the bedside states that the patient's condition has steadily declined since then. She has had persistent nausea. Has decreased oral intake. She was seen at [facility] emergency room on 02/08/2025. She was noted to have some mild kidney injury and hypercalcemia. She was given some IV fluids and she felt improved and was discharged home. Since then she has been at hematology office where she received IV fluids and Zometa in the outpatient transfusion center for hypercalcemia of malignancy. Despite these interventions patient continued to progressively get weaker. Still not eating or drinking well came back to the emergency room today at the prompting of her podiatric medicine doctor and oncologist. In the emergency room laboratory studies were consistent with multiple electrolyte abnormalities including hypercalcemia and progressive renal dysfunction. She was referred to our service for further evaluation. Time of my evaluation patient was comfortable. [id number] at bedside. Most the history is obtained from her. She confirms that ever since her ED visit at [place] the end of January she has progressively declined. She is barely eating or drinking much at all. Patient states she still is having bowel movements. No real abdominal pain. Some chronic shortness of breath. Her weakness has progressed the point really where she is really unable to get up and walk around and take care of herself at home. Prior to this she was ambulating on her own. Last week or so they have been assisting her in a wheelchair but she was able to assist with transfers. Now she can hardly even stand to assist with transfers. No fever or chills. No chest pain. She had been doing so well since April 2024 as she was actually discharged from the palliative care service. She was doing well as far as her oncologist was concerned. They had decided that she would not pursue any additional treatment other than what she is currently on for her cancer Tagrisso. [id number]-[id number]'s concern that the kidney stones may somehow be causing her decline. They did request inpatient nephrology and p alliative care consults with this hospitalization. Admission Exam Per Admitting Provider Physical Exam: Vitals signs as noted above General Appearance:Moderately built and nourished, no apparent distress, chronic ill-appearing, elderly Head: normocephalic, Atraumatic Eyes: normal inspection, EOMI Neck: supple, Trachea midline Respiratory/Chest: Decreased breath sounds, CTA, No accessory muscle use Cardiovascular: Irregularly irregular, no murmur Abdomen/GI:Soft, Non tender, Bowel sounds present Extremities/Musculoskeletal:normal inspection, no edema Neurologic/Psych:AAOX3, grossly no focal neurological deficits, decreased hearing Skin: normal color, warm Principal Diagnosis Hypercalcemia due to malignancy ALCIRA on CKD III Metastatic disease Hypertension Discharge Data Allergies Allergy/AdvReac Type Severity Reaction Status Date / Time castor oil Allergy Severe ANAPHYLAXIS Verified 09/27/23 16:45 paclitaxel Allergy Severe ANAPHYLAXIS Verified 09/27/23 16:45 ciprofloxacin Allergy Intermediate HIVES/RASH Verified 09/27/23 16:45 codeine AdvReac Intermediate GI SYMPTOMS Verified 09/27/23 16:45 cyproheptadine AdvReac Intermediate LETHARGY Verified 09/27/23 16:45 doxepin AdvReac Intermediate LETHARGY Verified 09/27/23 16:45 gabapentin AdvReac Intermediate GI Verified 09/27/23 16:45 SYMPTOMS/"FEEL OUT OF IT" hydrocodone AdvReac Intermediate GI SYMPTOMS Verified 09/27/23 16:45 meloxicam AdvReac Intermediate DIZZINESS, Verified 09/27/23 16:45 HEADACHE, NAUSEA oxycodone AdvReac Intermediate GI SYMPTOMS Verified 09/27/23 16:45 prednisone AdvReac Intermediate ELEVATED Verified 09/27/23 16:46 GLUCOSE tramadol AdvReac Intermediate GI SYMPTOMS Verified 09/27/23 16:46 Consultations 02/20/25 18:44 ED Decision to Admit Stat 02/20/25 19:21 Consult Palliative Care Stat 02/20/25 23:29 Consult Nephrology Routine Procedures Performed Laboratory Results WBC 13.84 K/ul (4.8-10.8) H 02/23/25 06:37 RBC 4.13 M/uL (4.20-5.40) L 02/23/25 06:37 Hgb 12.9 g/dl (12.0-16.0) 02/23/25 06:37 Hct 36.3 % (37.0-47.0) L 02/23/25 06:37 MCV 87.9 fL (80.0-100.0) 02/23/25 06:37 MCH 31.2 pg (25.0-34.0) 02/23/25 06:37 MCHC 35.5 g/dL (32.0-36.0) 02/23/25 06:37 RDW Std Deviation 49.8 fL (36.4-46.3) H 02/23/25 06:37 RDW Coeff of Thien 15.4 % (11.5-14.5) H 02/23/25 06:37 Plt Count 125 K/uL (130-400) L 02/23/25 06:37 MPV 11.8 fL (9.4-12.4) 02/23/25 06:37 Immature Gran % (Auto) 0.5 % 02/20/25 16:26 Neut % (Auto) 71.5 % 02/20/25 16:26 Lymph % (Auto) 15.5 % 02/20/25 16:26 [place] % (Auto) 10.0 % 02/20/25 16:26 Eos % (Auto) 2.0 % 02/20/25 16:26 Baso % (Auto) 0.5 % 02/20/25 16:26 Neut # (Auto) 9.38 K/uL (1.40-6.50) H 02/20/25 16:26 Lymph # (Auto) 2.04 K/uL (1.20-3.40) 02/20/25 16:26 [place] # (Auto) 1.31 K/uL (0.11-0.59) H 02/20/25 16:26 Eos # (Auto) 0.26 K/uL (0.00-0.50) 02/20/25 16:26 Baso # (Auto) 0.06 K/uL (0.00-0.20) 02/20/25 16:26 Immature Gran # (Auto) 0.07 K/uL (0.01-0.20) 02/20/25 16:26 Sodium 137 mmol/L (136-145) 02/23/25 06:37 Potassium 3.4 mmol/L (3.5-5.1) L 02/23/25 06:37 Chloride 105 mmol/L (98-107) 02/23/25 06:37 Carbon Dioxide 22 mmol/L (21-32) 02/23/25 06:37 Anion Gap 10 (3-11) 02/23/25 06:37 BUN 16 mg/dl (6-23) 02/23/25 06:37 Creatinine 1.10 mg/dl (0.6-1.2) 02/23/25 06:37 Est Cr Clr Drug Dosing 35.6 ml/min 02/23/25 06:37 eGFR 49.55 02/23/25 06:37 BUN/Creatinine Ratio 14.5 (10-20) 02/23/25 06:37 Glucose 72 mg/dl (70-99(Fasting)) 02/23/25 06:37 Calcium 8.6 mg/dl (8.6-10.3) 02/23/25 06:37 Ionized Calcium 1.14 mmol/L (1.12-1.32) 02/22/25 06:47 Phosphorus 2.5 mg/dl (2.5-4.9) 02/21/25 05:16 Magnesium 1.8 mg/dl (1.7-2.4) 02/23/25 06:37 Total Bilirubin 1.2 mg/dl (0.2-1.0) H 02/20/25 16:26 AST 39 U/L (13-39) 02/20/25 16:26 ALT 22 U/L (7-52) 02/20/25 16:26 Alkaline Phosphatase 632 U/L (34-104) H 02/20/25 16:26 Total Protein 5.7 gm/dl (6.0-8.3) L 02/20/25 16:26 Albumin 3.4 gm/dl (3.4-5.0) 02/20/25 16:26 Globulin 2.3 gm/dl (2.5-4.0) L 02/20/25 16:26 Albumin/Globulin Ratio 1.5 (0.9-2) 02/20/25 16:26 Lipase 9 U/L (11-82) L 02/20/25 16:26 Urine Color Dark Yellow 02/20/25 Unknown Urine Appearance Cloudy (Clear) A 02/20/25 Unknown Urine pH 5.5 (4.5-7.5) 02/20/25 Unknown Ur Specific [place] 1.025 (1.000-1.030) 02/20/25 Unknown Urine Protein 2+ (Negative) H 02/20/25 Unknown Urine Glucose (UA) Negative (Negative) 02/20/25 Unknown Urine Ketones Negative (Negative) 02/20/25 Unknown Urine Blood 3+ (Negative) H 02/20/25 Unknown Urine Nitrite Negative (Negative) 02/20/25 Unknown Urine Bilirubin 1+ (Negative) H 02/20/25 Unknown Urine Urobilinogen Negative (Negative) 02/20/25 Unknown Ur Leukocyte Esterase Trace (Negative) H 02/20/25 Unknown Urine WBC (Auto) 21-50 /hpf (0-5) H 02/20/25 Unknown Urine RBC (Auto) >20 /hpf (0-2) H 02/20/25 Unknown U Hyaline Cast (Auto) >20 /lpf (0-2) H 02/20/25 Unknown U Epithel Cells (Auto) >20 /hpf (0-2) H 02/20/25 Unknown Urine Bacteria (Auto) None Seen (None Seen) 02/20/25 Unknown Urine Comment 02/20/[address] 02/20/25 16:28 Exam(s): CT HEAD Without Contrast EXAM: CT Head Without Intravenous Contrast CLINICAL HISTORY: Reason for exam: trouble walking. TECHNIQUE: Axial computed tomography images of the head/brain without intravenous contrast. CTDI is 38.17 mGy and DLP is 703.85 mGy-cm. Automated exposure control was utilized for the study. A dose lowering technique was utilized adhering to the principles of ALARA. COMPARISON: CT head on 12/12/2023 FINDINGS: Brain: No acute infarct or hemorrhage identified. No extra-axial fluid collection. No mass effect or midline shift. Scattered areas of hypoattenuation in the supratentorial white matter likely represent chronic small vessel ischemic changes. Stable small calcifications. Ventricles and sulci: Prominence of the ventricles and sulci is likely secondary to cerebral volume loss. Bones: Mild hyperostosis frontalis interna. No bony lesion or acute fracture. Subcutaneous tissues: Normal. Sinuses: Mild mucosal thickening in the left sphenoid sinus. Mastoid air cells: Fluid in the right mastoid air cells. Orbits: Bilateral lens implants. Calcifications in the posterior aspect of the globes. Other: Atherosclerotic calcifications in the intracranial vasculature. IMPRESSION: 1. No acute intracranial abnormality. Further evaluation could be performed with MRI if clinically indicated. 2. Chronic small vessel ischemic changes and cerebral volume loss. Electronically signed by: Arnulfo Hodgson M.D. 02/20/25 18:43 PM Chest X-Ray 02/20/25 16:29 Exam(s): XR CXR 1 VIEW EXAM: XR Chest, 1 View CLINICAL HISTORY: Weakness. TECHNIQUE: Frontal view of the chest. COMPARISON: Chest radiographs 10/05/2023 FINDINGS: Lungs: Unremarkable. No consolidation. Pleural space: Improved, now small right pleural effusion. Stable minimal left pleural effusion. No pneumothorax. Heart: Stable cardiac silhouette. Mediastinum: Unremarkable. Normal mediastinal contour. Bones/joints: Redemonstrated bilateral shoulder arthroplasties. There are degenerative changes of the spine. No acute fracture. Tubes, lines and devices: Stable right central venous catheter. IMPRESSION: Improved, now small right pleural effusion. Stable minimal left pleural effusion. Electronically signed by: Deidre Dawkins MD 02/20/25 17:16 PM Abdomen/Pelvis CT 02/20/25 19:21 Exam(s): CT ABDOMEN + PELVIS Without Contrast EXAM: CT Abdomen and Pelvis Without Intravenous Contrast CLINICAL HISTORY: Reason for exam: alcira, kidney stones. TECHNIQUE: Axial computed tomography images of the abdomen and pelvis without intravenous contrast. CTDI is 21 mGy and DLP is 579 mGy-cm. Automated exposure control was utilized for the study. A dose lowering technique was utilized adhering to the principles of ALARA. COMPARISON: CT abdomen/pelvis on 02/08/2025 FINDINGS: Lung bases: Calcified granuloma in the right lower lobe. Lower lung atelectasis. Pleural space: Small right pleural effusion. ABDOMEN: Liver: Hepatomegaly. Hypoattenuating lesions throughout the liver, compatible with hepatic metastases. Gallbladder and bile ducts: Cholelithiasis. No ductal dilation. Pancreas: Atrophy of the pancreas. No ductal dilation. Spleen: Calcified granulomas in the spleen. Small hypodense lesions in the spleen are better visualized on the prior contrast-enhanced exam. Adrenals: Unremarkable. No mass. Kidneys and ureters: Nonobstructing bilateral renal stones. No hydronephrosis or obstructing ureteral stone. Small left renal cyst. No further follow-up necessary. Stomach and bowel: Evaluation of the stomach is limited by underdistention. Diverticulosis without evidence of diverticulitis. PELVIS: Appendix: Normal appendix. Bladder: Underdistended bladder limits evaluation. No stones. Reproductive: Prior hysterectomy. ABDOMEN and PELVIS: Intraperitoneal space: Unremarkable. No free air. No significant fluid collection. Bones/joints: Sclerotic metastases seen throughout the visualized bones. Possible hemangiomas versus lucent metastases in the spine. Intramedullary juan carlos and screw fixation partially seen in the left femur. Degenerative changes of the spine. Grade 1 anterolisthesis of L5 on S1. No acute fracture. No dislocation. Soft tissues: Calcification partially seen in the right breast. Vasculature: Phleboliths in the pelvis. Atherosclerotic changes of the vasculature. No abdominal aortic aneurysm. Lymph nodes: Unremarkable. No enlarged lymph nodes. IMPRESSION: 1. Hepatomegaly. Hypoattenuating lesions throughout the liver, compatible with hepatic metastases. 2. Sclerotic metastases seen throughout the visualized bones. 3. Small right pleural effusion. 4. Nonobstructing bilateral renal stones. No hydronephrosis or obstructing ureteral stone. 5. Cholelithiasis. Electronically signed by: Arnulfo Hodgson M.D. 02/20/25 21:01 PM Ordered Studies 02/20/25 16:28 CT head/brain wo con Stat 02/20/25 19:21 CT Abd and Pelvis [CT abd pelvis wo con] Routine Hospital Course (1) ALCIRA (acute kidney injury): (2) Hypercalcemia of malignancy: (3) Non-small cell lung cancer: (4) Metastatic lung cancer (metastasis from lung to other site): (5) Malignant pleural effusion: (6) Severe protein-calorie malnutrition: (7) Chronic nausea: (8) Paroxysmal atrial fibrillation: (9) History of venous thromboembolism: Plan 84 year old female with PMH significant for gout, NAYA, history of PE, paroxysmal atrial fibrillation, hypertension, hyperlipidemia, GERD, CKD IIIb, anxiety, and 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 Found to have acute kidney injury, hypercalcemia of malignancy and other electrolyte abnormalities. ALCIRA on CKD III Baseline creat 1.1-1.2 Presented with creatinine 2.0>>1.7>1.2>1.1 Pre renal in the setting of volume depletion and nephrotoxic agents HCTZ, OTONIEL discontinued Received IV fluids Monitor urine output Appreciate nephrology input Plan to be discharged home with home health Hypercalcemia of malignancy Parathyroid like peptide pending Had outpatient PTH, vitamin D levels Received Zometa outpatient for Ca 12.2 on 02/10/2025 Ca on admission 11.9-> 10.6-> 8.6 today Hypercalcemia resolved with fluids Metastatic non small cell lung cancer to multiple sites Malignant pleural effusion Follows with Dr Linton of [facility] Oncology Recurrent adenocarcinoma of the lung with recurrent disease involving the right lung, mediastinum, right hilar region, liver, bones, right pleural effusion Confirmed metastatic lung cancer via liver biopsy in September 2023 Current treatment with Tagrisso since October 2023 Palliative care consulted: --Family meeting 02/22 - see note from Dr Dedra Mann - plan to dc home today with referral for Home Health and close follow up with PCP, Palliative, Nephrology, Oncology Weakness Ambulatory dysfunction Patient not interested in rehab placement Plan to discharge home with home health for outpatient PT Atrial fibrillation History of PE Short bout of RVR 02/21 s/p metoprolol tartrate 5mg IV and rate controlled since then Continue Eliquis and metoprolol Hypertension HCTZ and lisinopril stopped due to ALCIRA as recommended by Nephrology Continue amlodipine, metoprolol Monitor blood pressure Hyperlipidemia Continue atorvastatin GERD Continue PPI and famotidine Anxiety Continue citalopram DVT Prophylaxis: on Eliquis Code Status: FULL CODE PCP: aHnk Ivey Disposition: Home with home health Total Time Total Time Spent Total Time Spent (In Minutes): 52 minutes Discharge Plan Discharge Items Patient Disposition: Home - Home Health Services Reason For Visit: ALCIRA Discharge Diagnosis: Hypercalcemia due to malignancy ALCIRA on CKD III Metastatic disease Hypertension Condition on Discharge: Fair Activity: As commented below Activity Comment: Increase gradually as tolerated Non-emergency contact: Primary Care Provider, Specialist, Oncologist and Therapist Call non-emergency contact if: you have any medication questions, your symptoms worsen, your pain is concerning for you and you have a fever Follow-up/Referrals: Lizz Garcia MD, PhD [Physician] - Hank Ivey DO [Primary Care Provider] - (Date & Time 03/01/2025 2:20 PM Provider: Hank Ivey DO [facility]) Kush Linton MD [Surgeon] - 03/08/25 9:30 am Yenny Mann DNP [Nurse Practitioner] - 03/02/25 9:00 am Diet: Regular Diet Texture: Dental soft (bite-sized) Addtl Attending Provider Instructions: You presented to the hospital with nausea, vomiting, poor oral intake, and weakness. You had multiple lab abnormalities including kidney injury, low magnesium, and low potassium that were likely caused by poor oral intake. You also had high calcium which was likely caused by your cancer and may continue to be a problem going forward. Fortunately, these numbers all improved with IV fluids and electrolyte replacements. Dr. Linton will determine if you need to get any additional doses of Zometa if the high calcium levels return. In the meantime, it is very important that you stay hydrated and avoid foods high in calcium like milk, cheese, yogurt, fortified foods, spinach, canned fish. You should also stop taking your vitamin D. You were seen by Nephrology inpatient who recommended stopping your hydrochlorothiazide and lisinopril in order to protect your kidneys. This means that your blood pressure will be higher. Please continue to monitor your blood pressure with your PCP and Dr. Garcia and monitor for headaches, blurry vision, and chest pain. You participated in a family meeting with Dr Dedra Mann of Palliative Care yesterday and determined that you would like to return home today with your son and daughter in law. We have placed a referral for [facility] and if this is not approved by insurance, you have a follow up appointment with your PCP on Thursday03/01/2025 where they can provide a script for outpatient Physical Therapy and you can go to your local PT in [place]. You have a follow up appointment with Dedra on 03/02/2025. We have requested an earlier appointment with Dr. Garcia of Nephrology and they will be calling you with the appointment date/time. You have a follow up with Dr. Linton on 03/08/2025. MEDICATION CHANGES: STOP lisinopril and hydrochlorothiazide SUMMARY OF TEST RESULTS: See above PENDING TEST RESULTS: None RECOMMENDATIONS FOR FOLLOW-UP: See above OTHER INSTRUCTIONS: Seek medical attention if you have: * temperature above 101 * chest pain or trouble breathing * abdominal pain, nausea, vomiting * diarrhea, dark stools or bloody stools * any unanswered questions or concerns Call 911 if symptoms are severe. It has been a pleasure taking care of you. Please take care of yourself. If you have any questions regarding your recent hospitalization please contact [facility] and request [facility] @ [phone]. Addtl Substance Abuse Specialist Provider Instructions: -- Follow-up with your primary care physician, palliative care, podiatric medicine doctor and oncologist as scheduled. -- Obtain blood test basic metabolic panel in 1 week to monitor your renal function and calcium levels. Follow-up with your physician for further recommendations -- Monitor your blood pressure regularly and discuss with your physician for further adjustment of medications as needed Seek immediate medical attention if your symptoms reoccur or worsen Please review medication list provided on discharge for any medication changes as instructed. Please call if you have any questions or problems. You can reach a [facility] Hospitalist on duty at [facility] 24 hours a day by calling [phone] Pending Studies at Discharge: No Stand-Alone Forms: My [facility], Smoking Cessation Medications and DC Order Prescriptions: Continued citalopram [Celexa] 10 mg tablet 10 mg PO DAILY 90 Days Qty: 90 1RF atorvastatin 20 mg Tablet 20 mg PO QAM amlodipine 10 mg Tablet 10 mg PO QAM albuterol sulfate 90 mcg/actuation Hfa Aerosol Inhaler 2 puff INHALATION QID PRN (Reason: SOB) colchicine 0.6 mg Tablet 0.6 mg PO BID PRN (Reason: GOUT) tizanidine 4 mg Capsule 4 mg PO TID PRN (Reason: MUSCLE SPASMS) ondansetron HCl 8 mg tablet 8 mg PO Q8H PRN (Reason: Nausea) prochlorperazine maleate 10 mg tablet 10 mg PO Q6H PRN (Reason: Nausea) fluticasone propionate 50 mcg/actuation [place],Suspension 2 spray INTRANASAL HS Eliquis 5 mg tablet 5 mg PO BID famotidine [Pepcid] 20 mg Tablet 20 mg PO BID PRN (Reason: Heartburn) amoxicillin 500 mg Capsule 2,000 mg PO DIRECTED PRN (Reason: 1 HR PRIOR TO DENTAL PROCEDURES) fexofenadine 180 mg Tablet 180 mg PO DAILY PRN (Reason: ALLERGY SYPMTOMS) meclizine 25 mg Tablet 25 mg PO TID PRN (Reason: Dizziness) potassium citrate 10 mEq (1,080 mg) tablet extended release 10 meq PO BID cholecalciferol (vitamin D3) [Vitamin D3] 50 mcg (2,000 unit) Capsule 2,000 unit PO DAILY magnesium oxide 400 mg magnesium Tablet 400 mg PO DAILY cefdinir 300 mg Capsule 300 mg PO BID Qty: 4 0RF Advanced Probiotic 625 mg (10 billion cell) Capsule 1 cap PO DAILY Qty: 10 0RF guaifenesin [Mucinex] 600 mg Tablet Extended Release 12hr 600 mg PO Q12 Qty: 10 0RF aspirin 81 mg Tablet,Delayed Release (Dr/Ec) 81 mg PO QAM Qty: 30 0RF metoprolol succinate 50 mg Tablet Extended Release 24 Hr 50 mg PO BID Qty: 60 0RF acetaminophen 325 mg Tablet 650 mg PO Q6H PRN (Reason: pain) Qty: 14 0RF doxycycline hyclate 100 mg Capsule 100 mg PO BID Qty: 4 0RF metoclopramide HCl [Reglan] 5 mg tablet 5 mg PO DAILY PRN (Reason: nausea and vomiting) Qty: 10 0RF Discontinued lisinopril 40 mg tablet 40 mg PO QAM hydrochlorothiazide 12.5 mg tablet 12.5 mg PO QAM Discharge Orders: Discharge Order (Routine); Ordered 02/23/25 Ordered By: Ayan Moreno Admission Data Admit Date/Time: 02/21/25 18:00 Attending Provider: Ayan Moreno Admit Provider: Dereje Thakkar Primary Care Provider: Hank Ivey Other Providers: Dereje Thakkar; Génesis Cortez; Yenny Mann Roshan
--- NOTE | 2025-02-24 06:48 | Electrocardiogram Report ---
Test Reason : Blood Pressure : */* mmHG Vent. Rate : 145 BPM Atrial Rate : * BPM P-R Int : * ms QRS Dur : 82 ms QT Int : 298 ms P-R-T Axes : * -32 252 degrees QTcB Int : 462 ms Atrial fibrillation with rapid ventricular response with premature ventricular or aberrantly conducte d complexes Left axis deviation Possible Anterior infarct (cited on or before 07-Oct-2023) Abnormal ECG When compared with ECG of 07-Oct-2023 09:06, Atrial fibrillation has replaced Sinus rhythm Vent. rate has increased by [address] now depressed in Lateral leads T wave inversion now evident in Lateral leads Confirmed by Vega Nunez ([id number]) on 02/24/2025 6:47:29 AM Referred By: REFERRED SELF Confirmed By: Vega Nunez
--- NOTE | 2025-02-24 22:06 | Electrocardiogram Report ---
Test Reason : Blood Pressure : */* mmHG Vent. Rate : 87 BPM Atrial Rate : 87 BPM P-R Int : 102 ms QRS Dur : 92 ms QT Int : 408 ms P-R-T Axes : * -28 -22 degrees QTcB Int : 490 ms Sinus rhythm with short HI Anterior infarct (cited on or before 07-Oct-2023) T wave abnormality, consider anterior ischemia Prolonged QT Abnormal ECG When compared with ECG of 21-Feb-2025 05:48, Sinus rhythm has replaced Atrial fibrillation Vent. rate has decreased by 58 bpm T wave inversion more evident in Anterior leads Confirmed by Vega Nunez ([id number]) on 02/24/2025 10:06:21 PM Referred By: REFERRED SELF Confirmed By: Vega Nunez
== END 2025-02-23 15:00 | disposition home or self-care (01) | DRG 682 ==
LOC: EDINP 15:54 → ED 15:54 → SUATTDRO 19:21 → 3W 23:29

== ENCOUNTER 2025-03-15 17:26 | Inpatient (IN) ==
[2025-03-15] MEDS: SODIUM CHLORIDE 0.9% 500 ML IV SCH (18:40)
[2025-03-15 18:41] LABS: Base Excess VBG -4.2 mEq/L; HCO3 VBG 20 mmol/L; Oxygen Saturation VBG < 60.0 %; PCO2 VBG 34 mmHg (38-50); PO2 VBG 39 mmHg; pH VBG 7.38 (7.36-7.41)
[2025-03-15 18:59] LABS: Hematocrit (blood only) 39.5 % (37.0-47.0); Hemoglobin 13.6 g/dL (12.0-16.0); Mean Corpuscular Hemoglobin 31.1 pg (25.0-34.0); Mean Corpuscular Volume 90.4 fL (80.0-100.0); Platelet Count 131 K/uL (130-400); RDW Standard Deviation 56.8 fL (36.4-46.3); Red Blood Count 4.37 M/uL (4.20-5.40); White Blood Count 26.48 K/ul (4.8-10.8)
[2025-03-15] MEDS: CEFEPIME 2000MG 2,000 MG/20 ML SYR IV STA (19:06)
[2025-03-15] MEDS: SODIUM CHLORIDE 0.9% 1,000 ML IV ONE (19:06)
[2025-03-15 19:10] LABS: Alanine Aminotransferase 37.0 U/L (7-52); Albumin Level 3.1 gm/dl (3.4-5.0); Alkaline Phosphatase 980.0 U/L (34-104); Anion Gap 11.0 (3-11); Bilirubin,Total 2.0 mg/dl (0.2-1.0); Blood Urea Nitrogen 42.0 mg/dl (6-23); Calcium 10.7 mg/dl (8.6-10.3); Carbon Dioxide 20.0 mmol/L (21-32); Chloride 108.0 mmol/L (98-107); Creatinine Clr Calc Pharmacy 16.7 ml/min; Glucose 121.0 mg/dl (70-99(Fasting)); Magnesium 1.7 mg/dl (1.7-2.4); Potassium 5.1 mmol/L (3.5-5.1); Sodium 139.0 mmol/L (136-145); Total Protein 5.0 gm/dl (6.0-8.3)
[2025-03-15 19:16] LABS: Immature Granulocytes # (auto) 0.19 K/uL (0.01-0.20); Immature Granulocytes % (auto) 0.7 %; Polychromasia 2+
--- NOTE | 2025-03-15 19:20 | XRay Report ---
Chest radiograph, one view History: Sepsis Comparison: 02/20/2025 Findings/impression: Single AP view of the chest performed. Trace bilateral pleural effusions appear to persist. No focal consolidation. No pneumothorax. The cardiac silhouette appears within normal limits. Prominence of the pulmonary arteries. Right chest wall port with catheter tip at the superior atrial caval junction. Resection changes of the right upper lung. Bilateral shoulder arthroplasty. Electronically signed by Julian Reid 03-15-2025 7:20 PM
[2025-03-15 19:27] LABS: INR 1.5 (0.9-1.1); Partial Thromboplastin Time 29 Seconds (21-31); Prothrombin Time 15.6 Seconds (9.0-12.0)
[2025-03-15 19:33] LABS: Chlamydia pneumoniae PCR Not Detected (NotDetected); Coronavirus 229E PCR Not Detected (NotDetected); Coronavirus CoV-2 (COVID19)PCR Not Detected (NotDetected); Coronavirus HKU1 PCR Not Detected (NotDetected); Coronavirus NL63 PCR Not Detected (NotDetected); Coronavirus OC43PCR Not Detected (NotDetected); Human Metapneumovirus PCR Not Detected (NotDetected); Parainfluenza Virus 1 PCR Not Detected (NotDetected); Parainfluenza Virus 2 PCR Not Detected (NotDetected); Parainfluenza Virus 3 PCR Not Detected (NotDetected); Parainfluenza Virus 4 PCR Not Detected (NotDetected); Respiratory Syncytial VirusPCR Not Detected (NotDetected); Rhinovirus/Enterovirus PCR Not Detected (NotDetected)
--- NOTE | 2025-03-15 19:51 | CT Scan Report ---
Clinical History: Altered mental status Technique: Axial computed tomography images were obtained of the brain without intravenous contrast. Comparison is made to the prior CT dated 02/20/2025 Findings: There is unchanged cerebral atrophy, within expected limits for the patient's age. Areas of decreased attenuation are seen within the periventricular white matter, likely representing chronic small vessel ischemic disease. There is no definite sign of acute or old infarction. No intracranial hemorrhage is evident. No definite mass lesion is seen on this noncontrast examination. There is no midline shift or other form of herniation. No hydrocephalus is seen. No fracture is identified. The orbits and the visualized paranasal sinuses appear unremarkable. The mastoid air cells appear clear. Impression: 1. Cerebral atrophy and chronic small vessel ischemic disease 2. Otherwise unremarkable noncontrast CT of the brain Electronically signed by Oneal Juan 03-15-2025 7:51 PM
--- NOTE | 2025-03-15 20:40 | CT Scan Report ---
CT of the abdomen pelvis without contrast Technique: Noncontrast axial images of the abdomen pelvis. Coronal and sagittal reformatted images made available for review Comparison made to prior exam dated 02/21/2024 Findings: Atelectasis. Right lower lobe small right pleural effusion. Coronary artery calcifications. Right hilar calcified lymph nodes incompletely evaluated on this exam. Although evaluation of solid abdominal organs is limited secondary to lack of IV contrast there appear to be innumerable intrahepatic masses concerning for metastatic disease. Evaluation of the uses precluded given the lack of IV contrast. Grossly they appear unchanged from prior study. No hydroureteronephrosis. Cholelithiasis without evidence of acute cholecystitis. HepatomegalyTrace free fluid within the dependent pelvis. Nonobstructing bilateral intrarenal calculi. Remaining solid abdominal organs are grossly unremarkable on this unenhanced CT scan. Postoperative changes ORIF left femoral fracture. Bone windows demonstrate innumerable osseous sclerotic metastatic lesions. No acute fractures or dislocation identified on this exam. Impression CT of the abdomen pelvis grossly negative for acute intraabdominal pathology Grossly stable extensive extensive intrahepatic metastatic disease incompletely evaluated on this exam Extensive osseous metastatic disease stable and compared with prior study. Electronically signed by Edward Griffin 03-15-2025 8:39 PM
[2025-03-15 21:53] LABS: Appearance Urine Cloudy (Clear); Bacteria Urine Automated None Seen (None Seen); Epithelial Cell Urine Auto 0-2 /hpf (0-2); Glucose Urine UA Negative (Negative); RBC Urine Automated >20 /hpf (0-2)
--- NOTE | 2025-03-15 21:59 | History & Physical Report ---
Date of Service March 15, 2025 Assessment & Plan (1) Encephalopathy: Plan: Assessment and plan below following discussion of case with ED provider and reviewing patient history/pertinent normal/abnormal diagnostic test results. Encephalopathy Multifactorial Severe sepsis (SIRS plus lactic acidosis ARF on CKD plus encephalopathy) secondary to complicated UTI rule out C. difficile given diarrhea symptoms, recent antibiotic Rx Neuropsychotropic medications contributory Troponin elevation secondary to illness hypertension, patient presenting with hypotension upon arrival at the ER paroxysmal AFib/PE on Eliquis NAYA on CPAP recurrent NSCLC status post surgery/chemotherapy breast cancer, L sp surgery and chemotherapy/BRCA gene mutation uterine cancer sp surgery/chemotherapy DM2 diet-controlled, well-controlled as of hemoglobin A1c of 6.2 from last year hypercalcemia of malignancy Admit to medical telemetry CS, Azactam Stool C. difficile, Flagyl 1 dose for now given sepsis Monitor creatinine and lactic acid response to IVF Hold neuropsychotropic medications until mentation back to baseline Appropriate to hold multiple antihypertensive medications for now given borderline BP Follow troponin Palliative care consult to review goals of care ISS BG goal 110-140, carb count coverage DVT prophylaxis. Eliquis dosed for current renal function DNR as per patient prior directives. Patient caregiver/[id number] requesting updates regarding patient's care. Ms. Yisel Aguayo, contact #[phone]. Text document was generated using [employer] voice recognition software. It may contain grammatical or spelling errors. Kindly contact undersigned for clarification of any documentation item in question. History of Present Illness Chief Complaint: Confusion, weakness as per records Primary Care Provider: Hank Ivey DO History obtained from patient, family, and records. History somewhat limited from patient due to confusion. Medical history significant for hypertension, paroxysmal AFib/PE on Eliquis, NAYA on CPAP, hx BRCA gene mutation, recurrent NSCLC status post surgery/chemotherapy, breast cancer, L sp surgery and chemotherapy, uterine cancer sp surgery/chemotherapy, acoustic neuroma as per records, skin cancer, DM2 diet-controlled, CRI (baseline creatinine 1.2), hypercalcemia of malignancy, mood disorder. Recent confinement last month for ARF on CKD, hypercalcemia secondary to metastatic recurrent lung cancer. Recent ER visit 2 weeks ago for confusion symptoms attributed to possible UTI. Patient elected to be discharged on outpatient cefdinir course. No growth on final urine CS. Increasing weakness over the last few weeks as per family. Poor appetite. Patient seen at [facility] oncologist office last week. Osimertinib cancer medication stopped due to disease progression. Consideration for comfort care discussed with patient/family if with future disease progression as per provider note. Patient started on Bactrim prescription for possible UTI few days ago. No growth on outpatient urine CS collected yesterday. Patient increasingly weak. Denies headache, chest pain, SOB, abdominal pain. Watery diarrhea symptoms. Oncologist's office recommended ED evaluation given worsening symptoms. Lowest SBP of 80s documented at the ER. IV cefepime administered at the ER. MEDICAL HISTORY: As above. SURGERIES: She has had A-port placement, hysterectomy, tubal ligation, tonsillectomy, adenoidectomy, carpal tunnel surgery, knee surgery, urologic procedures, eye surgery, shoulder surgery, modified radical mastectomy left, thoracoscopy/lung surgery, cataract surgery, femoral fracture surgery FAMILY HISTORY: There is a family history of breast cancer, colon cancer, dementia. PERSONAL AND SOCIAL HISTORY: Nonsmoker, no chronic intake of alcoholic beverages. 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 Allergies Allergy/AdvReac Type Severity Reaction Status Date / Time castor oil Allergy Severe ANAPHYLAXIS Verified 03/15/25 19:43 paclitaxel Allergy Severe ANAPHYLAXIS Verified 03/15/25 19:43 ciprofloxacin Allergy Intermediate HIVES/RASH Verified 03/15/25 19:43 codeine AdvReac Intermediate GI SYMPTOMS Verified 03/15/25 19:43 cyproheptadine AdvReac Intermediate LETHARGY Verified 03/15/25 19:43 doxepin AdvReac Intermediate LETHARGY Verified 03/15/25 19:43 gabapentin AdvReac Intermediate GI Verified 03/15/25 19:43 SYMPTOMS/"FEEL OUT OF IT" hydrocodone AdvReac Intermediate GI SYMPTOMS Verified 03/15/25 19:43 meloxicam AdvReac Intermediate DIZZINESS, Verified 03/15/25 19:43 HEADACHE, NAUSEA oxycodone AdvReac Intermediate GI SYMPTOMS Verified 03/15/25 19:43 prednisone AdvReac Intermediate ELEVATED Verified 03/15/25 19:43 GLUCOSE tramadol AdvReac Intermediate GI SYMPTOMS Verified 03/15/25 19:43 Home Medications Medication Instructions Recorded Confirmed Type albuterol sulfate 90 mcg/actuation 2 puff inhalation QID PRN SOB 06/23/18 03/15/25 History aerosol inhaler amlodipine 10 mg tablet 10 mg PO QAM 06/23/18 03/15/25 History atorvastatin 20 mg tablet 20 mg PO QAM 06/23/18 03/15/25 History tizanidine 4 mg capsule 4 mg PO TID PRN MUSCLE SPASMS 06/23/18 03/15/25 History fluticasone propionate 50 2 spray intranasal QAM Congestion 12/19/19 03/15/25 History mcg/actuation nasal spray,suspension ondansetron HCl 8 mg tablet 8 mg PO Q8H PRN Nausea 12/19/19 03/15/25 History prochlorperazine maleate 10 mg 10 mg PO Q6H PRN Nausea 12/19/19 03/15/25 History tablet apixaban 5 mg tablet (Eliquis) 5 mg PO BID 12/30/21 03/15/25 History famotidine 20 mg tablet (Pepcid) 20 mg PO BID PRN Heartburn 12/30/21 03/15/25 History amoxicillin 500 mg capsule 2,000 mg PO DIRECTED PRN 1 HR 09/27/23 03/15/25 History PRIOR TO DENTAL PROCEDURES cholecalciferol (vitamin D3) 50 2,000 unit PO DAILY 09/27/23 03/15/25 History mcg (2,000 unit) capsule (Vitamin D3) citalopram 20 mg tablet 20 mg PO QAM 03/15/25 03/15/25 History lorazepam 0.5 mg tablet 0.5 mg PO BID PRN Anxiety 03/15/25 03/15/25 History metoprolol succinate 100 mg 100 mg PO QAM 03/15/25 03/15/25 History tablet,extended release 24 hr mirtazapine 15 mg tablet 15 mg PO HS 03/15/25 03/15/25 History potassium chloride 20 mEq/15 mL 10 meq PO BID 03/15/25 03/15/25 History oral liquid sulfamethoxazole 800 1 tab PO BID 03/15/25 03/15/25 History mg-trimethoprim 160 mg tablet Past Med/Surg History Problem List Encephalopathy Severe sepsis Hypoxia (Acute) Sepsis (Acute) UTI (urinary tract infection) (Acute) Metastatic cancer (Acute) ALCIRA (acute kidney injury) (Acute) Weakness (Acute) Severe protein-calorie malnutrition Malignant pleural effusion Metastatic lung cancer (metastasis from lung to other site) Tremor Vocal tremor Anxiety and depression Contusion of arm, right Adenocarcinoma Non-small cell lung cancer Palliative care by specialist Advanced care planning/counseling discussion Weakness generalized Paroxysmal atrial fibrillation Metastatic disease Pleural effusion (Acute) Malignancy (Acute) Fever (Acute) Leukocytosis (Acute) Weakness (Acute) De Quervain's tenosynovitis Stress fracture Thigh pain Status post reverse total replacement of left shoulder (~03/2022) HTN (hypertension) (Chronic) Kidney calculi (Chronic) Uterine cancer (Chronic) CTS (carpal tunnel syndrome) (Chronic) NAYA on CPAP (Chronic) Age related osteoporosis (Chronic) H/O mastectomy (Chronic) H/O: hysterectomy (Chronic) H/O tubal ligation (Chronic) Hx of tonsillectomy (Chronic) H/O knee surgery (Chronic) H/O dilation and curettage (Chronic) H/O eye surgery (Chronic) Cellulitis (Acute) Hypertensive urgency Hypokalemia (Acute) Hypomagnesemia Neutropenic fever Encounter for pre-operative examination Bronchogenic cancer of left lung Chronic bronchitis Cervical spondylosis Asymptomatic hypertensive urgency Stress fracture of left femur Acute leg pain (Acute) Difficulty walking (Acute) Pressure ulcer of sacrum (Acute) DJD (degenerative joint disease) of cervical spine Stage II pressure ulcer (Acute) Pulmonary emboli (Acute) Acute hypokalemia (Acute) Dehydration (Acute) 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 Medical History Nausea & vomiting Hypomagnesemia History of venous thromboembolism Chronic nausea Hypercalcemia of malignancy Dyspnea and respiratory abnormalities History of Clostridioides difficile infection After abx, s/p vanco completed 12/31- diarrhea resolved per PAT visit 01/01 Pulmonary embolism 2020, reason for Eliquis; f/u dr morgan, s once/year Sleep apnea Remote hx- no device currently ("lost device") History of bronchitis Reason for inhaler PRN, no recent issues Osteoporosis History of skin cancer Nose and left leg (s/p excision) History of breast cancer s/p chemo, left mastectomy; limb restriction lt arm History of lung cancer s/p RUL wedge resection NSCLC - on Osimertinib (Tagrisso) per heme/onc History of uterine cancer s/p Hysterectomy History of kidney stones Kidney disease Stage III Acid reflux Anxiety Gout Hx Hypertension Surgical History Hx of myringotomy Right ear tube 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, seeing ear sx on 03/13/22" Hx of cataract extraction R/L History of open reduction and internal fixation (ORIF) procedure Left femur fracture ORIF (12/21/19): SAB at L3/4 (x2 attempts) at [facility] History of surgery A-PORT (RIGHT) PLACED 2/2 CHEMO; Rt chest History of colonoscopy History of tonsillectomy and adenoidectomy History of total right knee replacement 05/19/17= SAB X 1 ATTEMPT + PNB AT [facility] History of left mastectomy History of lung surgery RIGHT LUNG NODULE EXCISION/PARTIAL LUNG RESECTION History of hysterectomy Family History Mother History of breast cancer History of ovarian cancer Grandmother History of colon cancer Social History Smoking Status: Never smoker Second Hand Exposure: No; Do You Dip or Chew Tobacco: No; Tobacco Cessation Education Requested by Patient: No Hx Alcohol Use: No Hx Substance Use: No Preferred Language: Lao Communication Ability: Effective Finish Machine Tender Required: No Beliefs That Will Affect Care: None marital status: Current Living Situation: Family Current Living Situation Comment: lives in house Other Information That Helps Us Care for You: No Feels Safe at Home: Yes Safety Concerns: Feels Safe At This Time Assistive Devices: CPAP, Glasses, Hearing Aid - Bilateral and Hospital Bed Review of Systems Review of Systems: Could not be reliably obtained secondary to confusion Physical Exam Physical Exam: GENERAL: Disoriented, no respiratory distress SKIN: Normal color, warm HEENT: Bespectacled, pink palpebral conjunctivae, no ptosis, dry buccal mucosa NECK : Supple, short neck, no tenderness CHEST : CTA, no tenderness HEART : RRR, no obvious murmurs ABDOMEN: Some distention, nontender EXTREMITIES : No LE swelling or tenderness, no other conspicuous deformities noted NEUROLOGIC : Disoriented, no facial asymmetry, gait and stance not assessed Results & Data Results & Data Vital Signs (Past 12 Hours) Vital Signs Temp Pulse Pulse Resp BP BP Pulse Ox 03/15/25 19:21 92 H 17 97 03/15/25 19:15 93 H 20 96 03/15/25 19:15 111/71 03/15/25 19:15 111/71 03/15/25 19:15 111/71 03/15/25 19:15 111/71 03/15/25 19:15 111/71 03/15/25 19:12 93 H 39 H 91 03/15/25 19:00 93 H 23 90 03/15/25 19:00 102/65 03/15/25 19:00 102/65 03/15/25 19:00 102/65 03/15/25 19:00 102/65 03/15/25 19:00 102/65 03/15/25 18:51 93 H 24 93 03/15/25 18:49 108/66 03/15/25 18:49 108/66 03/15/25 18:49 108/66 03/15/25 18:49 108/66 03/15/25 18:49 108/66 03/15/25 18:49 92 H 22 108/66 92 03/15/25 18:48 90 32 H 91 03/15/25 18:42 91 H 24 91 03/15/25 18:30 92 H 26 H 91 03/15/25 18:30 89/60 L 03/15/25 18:30 89/60 L 03/15/25 18:30 89/60 L 03/15/25 18:30 89/60 L 03/15/25 18:30 89/60 L 03/15/25 18:30 91 H 16 89/60 L 90 03/15/25 18:28 96/58 L 03/15/25 18:28 96/58 L 03/15/25 18:27 95 H 22 90 03/15/25 18:24 96 H 03/15/25 18:21 96 H 30 H 93 03/15/25 18:12 96 H 32 H 93 03/15/25 17:50 96 H 24 113/81 96 03/15/25 17:50 97 H 24 93 03/15/25 17:28 36.6 C 99 H 18 109/51 L 97 O2 Del Method O2 Flow Rate 03/15/25 19:21 03/15/25 19:15 03/15/25 19:15 03/15/25 19:15 03/15/25 19:15 03/15/25 19:15 03/15/25 19:15 03/15/25 19:12 03/15/25 19:00 Nasal Cannula 2 03/15/25 19:00 03/15/25 19:00 03/15/25 19:00 03/15/25 19:00 03/15/25 19:00 03/15/25 18:51 03/15/25 18:49 03/15/25 18:49 03/15/25 18:49 03/15/25 18:49 03/15/25 18:49 03/15/25 18:49 Room Air 03/15/25 18:48 03/15/25 18:42 03/15/25 18:30 03/15/25 18:30 03/15/25 18:30 03/15/25 18:30 03/15/25 18:30 03/15/25 18:30 03/15/25 18:30 Room Air 03/15/25 18:28 03/15/25 18:28 03/15/25 18:27 03/15/25 18:24 03/15/25 18:21 03/15/25 18:12 03/15/25 17:50 Room Air 03/15/25 17:50 Room Air 03/15/25 17:28 Room Air Laboratory Results Laboratory Results WBC 26.48 K/ul (4.8-10.8) H 03/15/25 18:27 RBC 4.37 M/uL (4.20-5.40) 03/15/25 18:27 Hgb 13.6 g/dL (12.0-16.0) 03/15/25 18:27 POC Hgb 14.6 g/dl (12.0-16.0) 03/15/25 18:34 Hct 39.5 % (37.0-47.0) 03/15/25 18:27 POC Hct 43 % (37-47) 03/15/25 18:34 MCV 90.4 fL (80.0-100.0) 03/15/25 18:27 MCH 31.1 pg (25.0-34.0) 03/15/25 18:27 MCHC 34.4 g/dL (32.0-36.0) 03/15/25 18:27 RDW Std Deviation 56.8 fL (36.4-46.3) H 03/15/25 18:27 RDW Coeff of Thien 17.3 % (11.5-14.5) H 03/15/25 18:27 Plt Count 131 K/uL (130-400) 03/15/25 18: MPV 11.2 fL (9.4-12.4) 03/15/25 18:27 Immature Gran % (Auto) 0.7 % 03/15/25 18:27 Neut % (Auto) 84.8 % 03/15/25 18:27 Lymph % (Auto) 7.3 % 03/15/25 18:27 [place] % (Auto) 6.6 % 03/15/25 18:27 Eos % (Auto) 0.3 % 03/15/25 18:27 Baso % (Auto) 0.3 % 03/15/25 18:27 Neut # (Auto) 22.41 K/uL (1.40-6.50) H 03/15/25 18:27 Lymph # (Auto) 1.94 K/uL (1.20-3.40) 03/15/25 18:27 [place] # (Auto) 1.76 K/uL (0.11-0.59) H 03/15/25 18:27 Eos # (Auto) 0.09 K/uL (0.00-0.50) 03/15/25 18:27 Baso # (Auto) 0.09 K/uL (0.00-0.20) 03/15/25 18:27 Immature Gran # (Auto) 0.19 K/uL (0.01-0.20) 03/15/25 18:27 Polychromasia 2+ 03/15/25 18:27 Echinocytes 2+ 03/15/25 18:27 PT 15.6 Seconds (9.0-12.0) H 03/15/25 18:27 INR 1.5 (0.9-1.1) H 03/15/25 18:27 APTT 29 Seconds (21-31) 03/15/25 18:27 PTT Ratio 1.1 03/15/25 18:27 VBG pH 7.38 (7.36-7.41) 03/15/25 18:27 VBG pCO2 34 mmHg (38-50) L 03/15/25 18:27 VBG pO2 39 mmHg 03/15/25 18:27 VBG HCO3 20 mmol/L 03/15/25 18:27 VBG O2 Saturation < 60.0 % 03/15/25 18:27 VBG Base Excess -4.2 mEq/L 03/15/25 18:27 POC Sodium 138 mmol/L (135-144) 03/15/25 18:34 Sodium 139 mmol/L (136-145) 03/15/25 18:27 POC Potassium 4.9 mmol/L (3.3-5.0) 03/15/25 18:34 Potassium 5.1 mmol/L (3.5-5.1) 03/15/25 18: POC Chloride 108 mmol/L (101-112) 03/15/25 18:34 Chloride 108 mmol/L (98-107) H 03/15/25 18:27 Carbon Dioxide 20 mmol/L (21-32) L 03/15/25 18: POC Total CO2 18 mmol/L (24-31) L 03/15/25 18:34 Anion Gap 11 (3-11) 03/15/25 18:27 POC Anion Gap 18.0 mmol/L (16-25) 03/15/25 18:34 POC BUN 37 mg/dl (7-18) H 03/15/25 18:34 BUN 42 mg/dl (6-23) H 03/15/25 18:27 Creatinine 2.35 mg/dl (0.6-1.2) H 03/15/25 18:27 POC Creatinine 2.6 mg/dl (0.6-1.3) H 03/15/25 18:34 Est Cr Clr Drug Dosing 16.7 ml/min 03/15/25 18:27 eGFR 19.93 03/15/25 18:27 BUN/Creatinine Ratio 17.9 (10-20) 03/15/25 18:27 Glucose 121 mg/dl (70-99(Fasting)) H 03/15/25 18:27 POC Glucose (other) 115 mg/dl (70-99) H 03/15/25 18:34 Lactate 2.6 mmol/L (0.4-2.0) H* 03/15/25 20:46 Calcium 10.7 mg/dl (8.6-10.3) H 03/15/25 18:27 POC Ioniz Calcium Just[place] 1.31 mmol/l (1.12-1.32) 03/15/25 18:34 Magnesium 1.7 mg/dl (1.7-2.4) 03/15/25 18: Total Bilirubin 2.0 mg/dl (0.2-1.0) H 03/15/25 18: Direct Bilirubin 0.4 mg/dl (0-0.2) H 03/15/25 18:27 AST 279 U/L (13-39) H 03/15/25 18: ALT 37 U/L (7-52) 03/15/25 18: Alkaline Phosphatase 980 U/L (34-104) H 03/15/25 18: Troponin I High Sens 30.7 pg/ml (0-14) H 03/15/25 18: Total Protein 5.0 gm/dl (6.0-8.3) L 03/15/25 18: Albumin 3.1 gm/dl (3.4-5.0) L 03/15/25 18: Procalcitonin 3.27 ng/ml (0-0.5) H 03/15/25 18:27 Urine Color [place] 03/15/25 21: Urine Appearance Cloudy (Clear) A 03/15/25 21: Urine pH 5.5 (4.5-7.5) 03/15/25 21: Ur Specific [place] 1.018 (1.000-1.030) 03/15/25 21: Urine Protein 2+ (Negative) H 03/15/25 21: Urine Glucose (UA) Negative (Negative) 03/15/25 21: Urine Ketones Trace (Negative) H 03/15/25 21: Urine Blood 3+ (Negative) H 03/15/25 21: Urine Nitrite Negative (Negative) 03/15/25 21: Urine Bilirubin Negative (Negative) 03/15/25 21:05 Urine Urobilinogen Negative (Negative) 03/15/25 21:05 Ur Leukocyte Esterase 1+ (Negative) H 03/15/25 21:05 Urine WBC (Auto) 11-20 /hpf (0-5) H 03/15/25 21:05 Urine RBC (Auto) >20 /hpf (0-2) H 03/15/25 21:05 U Hyaline Cast (Auto) 11-20 /lpf (0-2) H 03/15/25 21:05 U Epithel Cells (Auto) 0-2 /hpf (0-2) 03/15/25 21:05 Urine Bacteria (Auto) None Seen (None Seen) 03/15/25 21:05 Hyaline Casts Present /lpf (None Presnt) A 03/15/25 21:05 Urine Comment 03/15/25 21:05 Adenovirus (PCR) Not Detected (NotDetected) 03/15/25 18:27 B. pertussis DNA (PCR) Not Detected (NotDetected) 03/15/25 18:27 B.parapertussis DNA PCR Not Detected (NotDetected) 03/15/25 18:27 C. pneumoniae DNA (PCR) Not Detected (NotDetected) 03/15/25 18:27 Coronavirus OC43 (PCR) Not Detected (NotDetected) 03/15/25 18:27 Coronavirus HKU1 (PCR) Not Detected (NotDetected) 03/15/25 18:27 Coronavirus 229E (PCR) Not Detected (NotDetected) 03/15/25 18:27 SARS-CoV-2 (PCR) Not Detected (NotDetected) 03/15/25 18:27 Coronavirus NL63 (PCR) Not Detected (NotDetected) 03/15/25 18:27 Human Metapneumovir PCR Not Detected (NotDetected) 03/15/25 18:27 Influenza Type A (PCR) Not Detected (NotDetected) 03/15/25 18:27 Influenza Type B (PCR) Not Detected (NotDetected) 03/15/25 18:27 M. pneumoniae (PCR) Not Detected (NotDetected) 03/15/25 18:27 Parainfluenza 1 (PCR) Not Detected (NotDetected) 03/15/25 18:27 Parainfluenza 2 (PCR) Not Detected (NotDetected) 03/15/25 18:27 Parainfluenza 3 (PCR) Not Detected (NotDetected) 03/15/25 18:27 Parainfluenza 4 (PCR) Not Detected (NotDetected) 03/15/25 18:27 RSV (PCR) Not Detected (NotDetected) 03/15/25 18:27 Entero/Rhino (PCR) Not Detected (NotDetected) 03/15/25 18:27 Impressions Chest X-Ray 03/15/25 17:37 Chest radiograph, one view History: Sepsis Comparison: 02/20/2025 Findings/impression: Single AP view of the chest performed. Trace bilateral pleural effusions appear to persist. No focal consolidation. No pneumothorax. The cardiac silhouette appears within normal limits. Prominence of the pulmonary arteries. Right chest wall port with catheter tip at the superior atrial caval junction. Resection changes of the right upper lung. Bilateral shoulder arthroplasty. Electronically signed by Julian Reid 03-15-2025 7:[address] 03/15/25 17:38 Clinical History: Altered mental status Technique: Axial computed tomography images were obtained of the brain without intravenous contrast. Comparison is made to the prior CT dated 02/20/2025 Findings: There is unchanged cerebral atrophy, within expected limits for the patient's age. Areas of decreased attenuation are seen within the periventricular white matter, likely representing chronic small vessel ischemic disease. There is no definite sign of acute or old infarction. No intracranial hemorrhage is evident. No definite mass lesion is seen on this noncontrast examination. There is no midline shift or other form of herniation. No hydrocephalus is seen. No fracture is identified. The orbits and the visualized paranasal sinuses appear unremarkable. The mastoid air cells appear clear. Impression: 1. Cerebral atrophy and chronic small vessel ischemic disease 2. Otherwise unremarkable noncontrast CT of the brain Electronically signed by Oneal Juan 03-15-2025 7:51 PM Abdomen/Pelvis CT 03/15/25 18:58 CT of the abdomen pelvis without contrast Technique: Noncontrast axial images of the abdomen pelvis. Coronal and sagittal reformatted images made available for review Comparison made to prior exam dated 02/21/2024 Findings: Atelectasis. Right lower lobe small right pleural effusion. Coronary artery calcifications. Right hilar calcified lymph nodes incompletely evaluated on this exam. Although evaluation of solid abdominal organs is limited secondary to lack of IV contrast there appear to be innumerable intrahepatic masses concerning for metastatic disease. Evaluation of the uses precluded given the lack of IV contrast. Grossly they appear unchanged from prior study. No hydroureteronephrosis. Cholelithiasis without evidence of acute cholecystitis. HepatomegalyTrace free fluid within the dependent pelvis. Nonobstructing bilateral intrarenal calculi. Remaining solid abdominal organs are grossly unremarkable on this unenhanced CT scan. Postoperative changes ORIF left femoral fracture. Bone windows demonstrate innumerable osseous sclerotic metastatic lesions. No acute fractures or dislocation identified on this exam. Impression CT of the abdomen pelvis grossly negative for acute intraabdominal pathology Grossly stable extensive extensive intrahepatic metastatic disease incompletely evaluated on this exam Extensive osseous metastatic disease stable and compared with prior study. Electronically signed by Edward Griffin 03-15-2025 8:39 PM Diagnostic Findings EKG as per my interpretation :Rate 90, NSR, LAD, LAFB, T wave inversion, inferior and anterolateral leads
[2025-03-15] MEDS ORDERED: FAMOTIDINE 20 MG TAB PO PRN (22:34)
[2025-03-15] MEDS: SODIUM CHLORIDE 0.9% 500 ML IV ONE (22:40)
[2025-03-15] MEDS: metroNIDAZOLE 500 MG/100 ML BAG IV STA (22:41)
--- NOTE | 2025-03-15 23:55 | Emergency Department Note ---
History of Present Illness General Chief complaint: Urinary Symptoms Stated complaint: UTI, LOW GRADE FEVER, DOC REFERRAL Time Seen by Provider: 03/15/25 17:37 History of Present Illness Provider complaint: Fever 84-year-old female with history of lung cancer with metastasis patient of Dr. Kush Linton [facility] oncology presents emergency department for fever. Family reports that the patient has had nausea vomiting diarrhea and fever for the last day. Family states that the patient has been increasingly weak and has not been eating well. Family states that the patient stopped oral chemotherapy recently for her lung cancer. Family states that they were evaluated by Dr. Kush Linton referred the patient to the emergency department for sepsis work. Home Medications Medication Instructions Recorded Confirmed Type albuterol sulfate 90 mcg/actuation 2 puff inhalation QID PRN SOB 06/23/18 03/15/25 History aerosol inhaler amlodipine 10 mg tablet 10 mg PO QAM 06/23/18 03/15/25 History atorvastatin 20 mg tablet 20 mg PO QAM 06/23/18 03/15/25 History tizanidine 4 mg capsule 4 mg PO TID PRN MUSCLE SPASMS 06/23/18 03/15/25 History fluticasone propionate 50 2 spray intranasal QAM Congestion 12/19/19 03/15/25 History mcg/actuation nasal spray,suspension ondansetron HCl 8 mg tablet 8 mg PO Q8H PRN Nausea 12/19/19 03/15/25 History prochlorperazine maleate 10 mg 10 mg PO Q6H PRN Nausea 12/19/19 03/15/25 History tablet apixaban 5 mg tablet (Eliquis) 5 mg PO BID 12/30/21 03/15/25 History famotidine 20 mg tablet (Pepcid) 20 mg PO BID PRN Heartburn 12/30/21 03/15/25 History amoxicillin 500 mg capsule 2,000 mg PO DIRECTED PRN 1 HR 09/27/23 03/15/25 History PRIOR TO DENTAL PROCEDURES cholecalciferol (vitamin D3) 50 2,000 unit PO DAILY 09/27/23 03/15/25 History mcg (2,000 unit) capsule (Vitamin D3) citalopram 20 mg tablet 20 mg PO QAM 03/15/25 03/15/25 History lorazepam 0.5 mg tablet 0.5 mg PO BID PRN Anxiety 03/15/25 03/15/25 History metoprolol succinate 100 mg 100 mg PO QAM 03/15/25 03/15/25 History tablet,extended release 24 hr mirtazapine 15 mg tablet 15 mg PO HS 03/15/25 03/15/25 History potassium chloride 20 mEq/15 mL 10 meq PO BID 03/15/25 03/15/25 History oral liquid sulfamethoxazole 800 1 tab PO BID 03/15/25 03/15/25 History mg-trimethoprim 160 mg tablet Allergies Allergy/AdvReac Type Severity Reaction Status Date / Time castor oil Allergy Severe ANAPHYLAXIS Verified 03/15/25 19:43 paclitaxel Allergy Severe ANAPHYLAXIS Verified 03/15/25 19:43 ciprofloxacin Allergy Intermediate HIVES/RASH Verified 03/15/25 19:43 codeine AdvReac Intermediate GI SYMPTOMS Verified 03/15/25 19:43 cyproheptadine AdvReac Intermediate LETHARGY Verified 03/15/25 19:43 doxepin AdvReac Intermediate LETHARGY Verified 03/15/25 19:43 gabapentin AdvReac Intermediate GI Verified 03/15/25 19:43 SYMPTOMS/"FEEL OUT OF IT" hydrocodone AdvReac Intermediate GI SYMPTOMS Verified 03/15/25 19:43 meloxicam AdvReac Intermediate DIZZINESS, Verified 03/15/25 19:43 HEADACHE, NAUSEA oxycodone AdvReac Intermediate GI SYMPTOMS Verified 03/15/25 19:43 prednisone AdvReac Intermediate ELEVATED Verified 03/15/25 19:43 GLUCOSE tramadol AdvReac Intermediate GI SYMPTOMS Verified 03/15/25 19:43 Past Med/Surg History Problem List Hypoxia (Acute) Sepsis (Acute) UTI (urinary tract infection) (Acute) Metastatic cancer (Acute) ALCIRA (acute kidney injury) (Acute) Weakness (Acute) Severe protein-calorie malnutrition Malignant pleural effusion Metastatic lung cancer (metastasis from lung to other site) Tremor Vocal tremor Anxiety and depression Contusion of arm, right Adenocarcinoma Non-small cell lung cancer Palliative care by specialist Advanced care planning/counseling discussion Weakness generalized Paroxysmal atrial fibrillation Metastatic disease Pleural effusion (Acute) Malignancy (Acute) Fever (Acute) Leukocytosis (Acute) Weakness (Acute) De Quervain's tenosynovitis Stress fracture Thigh pain Status post reverse total replacement of left shoulder (~03/2022) HTN (hypertension) (Chronic) Kidney calculi (Chronic) Uterine cancer (Chronic) CTS (carpal tunnel syndrome) (Chronic) NAYA on CPAP (Chronic) Age related osteoporosis (Chronic) H/O mastectomy (Chronic) H/O: hysterectomy (Chronic) H/O tubal ligation (Chronic) Hx of tonsillectomy (Chronic) H/O knee surgery (Chronic) H/O dilation and curettage (Chronic) H/O eye surgery (Chronic) Cellulitis (Acute) Hypertensive urgency Hypokalemia (Acute) Hypomagnesemia Neutropenic fever Encounter for pre-operative examination Bronchogenic cancer of left lung Chronic bronchitis Cervical spondylosis Asymptomatic hypertensive urgency Stress fracture of left femur Acute leg pain (Acute) Difficulty walking (Acute) Pressure ulcer of sacrum (Acute) DJD (degenerative joint disease) of cervical spine Stage II pressure ulcer (Acute) Pulmonary emboli (Acute) Acute hypokalemia (Acute) Dehydration (Acute) 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 Medical History Nausea & vomiting Hypomagnesemia History of venous thromboembolism Chronic nausea Hypercalcemia of malignancy Dyspnea and respiratory abnormalities History of Clostridioides difficile infection After abx, s/p vanco completed 12/31- diarrhea resolved per PAT visit 01/01 Pulmonary embolism 2020, reason for Eliquis; f/u dr morgan, [facility] once/year Sleep apnea Remote hx- no device currently ("lost device") History of bronchitis Reason for inhaler PRN, no recent issues Osteoporosis History of skin cancer Nose and left leg (s/p excision) History of breast cancer s/p chemo, left mastectomy; limb restriction lt arm History of lung cancer s/p RUL wedge resection NSCLC - on Osimertinib (Tagrisso) per heme/onc History of uterine cancer s/p Hysterectomy History of kidney stones Kidney disease Stage III Acid reflux Anxiety Gout Hx Hypertension Surgical History Hx of myringotomy Right ear tube 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, seeing ear sx on 03/13/22" Hx of cataract extraction R/L History of open reduction and internal fixation (ORIF) procedure Left femur fracture ORIF (12/21/19): SAB at L3/4 (x2 attempts) at [facility] History of surgery A-PORT (RIGHT) PLACED 2/2 CHEMO; Rt chest History of colonoscopy History of tonsillectomy and adenoidectomy History of total right knee replacement 05/19/17= SAB X 1 ATTEMPT + PNB AT [facility] History of left mastectomy History of lung surgery RIGHT LUNG NODULE EXCISION/PARTIAL LUNG RESECTION History of hysterectomy Family History Mother History of breast cancer History of ovarian cancer Grandmother History of colon cancer Social History Smoking Status: Never smoker Second Hand Exposure: Yes ( used to smoke); Do You Dip or Chew Tobacco: No; Hx Alcohol Use: No Hx Substance Use: No Preferred Language: German Communication Ability: Effective Emergency Room Technician Required: No Beliefs That Will Affect Care: None marital status: Current Living Situation: Alone Current Living Situation Comment: lives in house Feels Safe at Home: Yes Assistive Devices: Cane, Walker and Wheelchair Physical Exam Vital Signs Vital Signs - 24 hr 03/15/25 17:28 03/15/25 17:50 03/15/25 17:50 Temperature 36.6 C Temperature Source Oral Pulse Rate 99 H 97 H Pulse Rate [Apical] 96 H Pulse Rate from SpO2 Sensor Pulse Rhythm Regular Pulse Rhythm [Apical] Regular Pulse Strength [Apical] Normal Respiratory Rate 18 24 24 Respiratory Effort / Characteristics Non-Labored Non-Labored Spontaneous Respiratory Depth Normal Normal Respiratory Pattern Regular Regular Blood Pressure 109/51 L Blood Pressure [Right Arm] 113/81 Blood Pressure Mean 70 Blood Pressure Mean [Right Arm] 91 Blood Pressure Position [Right Arm] Semi-fowlers Pulse Oximetry 97 93 96 Oxygen Delivery Method Room Air Room Air Room Air Oxygen Flow Rate Sepsis Recent Fever Within 48 Hours No Sepsis New/Unexplained Change in Mental Status N/A Sepsis Action Taken by Nursing No Action Required 03/15/25 18:12 03/15/25 18:21 03/15/25 18:24 Temperature Temperature Source Pulse Rate 96 H 96 H 96 H Pulse Rate [Apical] Pulse Rate from SpO2 Sensor 97 H 96 H Pulse Rhythm Pulse Rhythm [Apical] Pulse Strength [Apical] Respiratory Rate 32 H 30 H Respiratory Effort / Characteristics Respiratory Depth Respiratory Pattern Blood Pressure Blood Pressure [Right Arm] Blood Pressure Mean Blood Pressure Mean [Right Arm] Blood Pressure Position [Right Arm] Pulse Oximetry 93 93 Oxygen Delivery Method Oxygen Flow Rate Sepsis Recent Fever Within 48 Hours Sepsis New/Unexplained Change in Mental Status Sepsis Action Taken by Nursing 03/15/25 18:27 03/15/25 18:28 03/15/25 18:28 Temperature Temperature Source Pulse Rate 95 H Pulse Rate [Apical] Pulse Rate from SpO2 Sensor 91 H Pulse Rhythm Pulse Rhythm [Apical] Pulse Strength [Apical] Respiratory Rate 22 Respiratory Effort / Characteristics Respiratory Depth Respiratory Pattern Blood Pressure 96/58 L 96/58 L Blood Pressure [Right Arm] Blood Pressure Mean 64 64 Blood Pressure Mean [Right Arm] Blood Pressure Position [Right Arm] Pulse Oximetry 90 Oxygen Delivery Method Oxygen Flow Rate Sepsis Recent Fever Within 48 Hours Sepsis New/Unexplained Change in Mental Status Sepsis Action Taken by Nursing 03/15/25 18:30 03/15/25 18:30 03/15/25 18:30 Temperature Temperature Source Pulse Rate Pulse Rate [Apical] 91 H Pulse Rate from SpO2 Sensor Pulse Rhythm Pulse Rhythm [Apical] Regular Pulse Strength [Apical] Normal Respiratory Rate 16 Respiratory Effort / Characteristics Non-Labored Spontaneous Respiratory Depth Normal Respiratory Pattern Regular Blood Pressure 89/60 L 89/60 L Blood Pressure [Right Arm] 89/60 L Blood Pressure Mean 63 63 Blood Pressure Mean [Right Arm] 69 Blood Pressure Position [Right Arm] Semi-fowlers Pulse Oximetry 90 Oxygen Delivery Method Room Air Oxygen Flow Rate Sepsis Recent Fever Within 48 Hours Sepsis New/Unexplained Change in Mental Status Sepsis Action Taken by Nursing 03/15/25 18:30 03/15/25 18:30 03/15/25 18:30 Temperature Temperature Source Pulse Rate Pulse Rate [Apical] Pulse Rate from SpO2 Sensor Pulse Rhythm Pulse Rhythm [Apical] Pulse Strength [Apical] Respiratory Rate Respiratory Effort / Characteristics Respiratory Depth Respiratory Pattern Blood Pressure 89/60 L 89/60 L 89/60 L Blood Pressure [Right Arm] Blood Pressure Mean 63 63 63 Blood Pressure Mean [Right Arm] Blood Pressure Position [Right Arm] Pulse Oximetry Oxygen Delivery Method Oxygen Flow Rate Sepsis Recent Fever Within 48 Hours Sepsis New/Unexplained Change in Mental Status Sepsis Action Taken by Nursing 03/15/25 18:30 03/15/25 18:42 03/15/25 18:48 Temperature Temperature Source Pulse Rate 92 H 91 H 90 Pulse Rate [Apical] Pulse Rate from SpO2 Sensor 92 H 94 H 91 H Pulse Rhythm Pulse Rhythm [Apical] Pulse Strength [Apical] Respiratory Rate 26 H 24 32 H Respiratory Effort / Characteristics Respiratory Depth Respiratory Pattern Blood Pressure Blood Pressure [Right Arm] Blood Pressure Mean Blood Pressure Mean [Right Arm] Blood Pressure Position [Right Arm] Pulse Oximetry 91 91 91 Oxygen Delivery Method Oxygen Flow Rate Sepsis Recent Fever Within 48 Hours Sepsis New/Unexplained Change in Mental Status Sepsis Action Taken by Nursing 03/15/25 18:49 03/15/25 18:49 03/15/25 18:49 Temperature Temperature Source Pulse Rate Pulse Rate [Apical] 92 H Pulse Rate from SpO2 Sensor Pulse Rhythm Pulse Rhythm [Apical] Regular Pulse Strength [Apical] Respiratory Rate 22 Respiratory Effort / Characteristics Non-Labored Spontaneous Respiratory Depth Normal Respiratory Pattern Regular Blood Pressure 108/66 108/66 Blood Pressure [Right Arm] 108/66 Blood Pressure Mean 69 69 Blood Pressure Mean [Right Arm] 80 Blood Pressure Position [Right Arm] Pulse Oximetry 92 Oxygen Delivery Method Room Air Oxygen Flow Rate Sepsis Recent Fever Within 48 Hours Sepsis New/Unexplained Change in Mental Status Sepsis Action Taken by Nursing 03/15/25 18:49 03/15/25 18:49 03/15/25 18:49 Temperature Temperature Source Pulse Rate Pulse Rate [Apical] Pulse Rate from SpO2 Sensor Pulse Rhythm Pulse Rhythm [Apical] Pulse Strength [Apical] Respiratory Rate Respiratory Effort / Characteristics Respiratory Depth Respiratory Pattern Blood Pressure 108/66 108/66 108/66 Blood Pressure [Right Arm] Blood Pressure Mean 69 69 69 Blood Pressure Mean [Right Arm] Blood Pressure Position [Right Arm] Pulse Oximetry Oxygen Delivery Method Oxygen Flow Rate Sepsis Recent Fever Within 48 Hours Sepsis New/Unexplained Change in Mental Status Sepsis Action Taken by Nursing 03/15/25 18:51 03/15/25 19:00 03/15/25 19:00 Temperature Temperature Source Pulse Rate 93 H Pulse Rate [Apical] Pulse Rate from SpO2 Sensor 93 H Pulse Rhythm Pulse Rhythm [Apical] Pulse Strength [Apical] Respiratory Rate 24 Respiratory Effort / Characteristics Respiratory Depth Respiratory Pattern Blood Pressure 102/65 102/65 Blood Pressure [Right Arm] Blood Pressure Mean 83 83 Blood Pressure Mean [Right Arm] Blood Pressure Position [Right Arm] Pulse Oximetry 93 Oxygen Delivery Method Oxygen Flow Rate Sepsis Recent Fever Within 48 Hours Sepsis New/Unexplained Change in Mental Status Sepsis Action Taken by Nursing 03/15/25 19:00 03/15/25 19:00 03/15/25 19:00 Temperature Temperature Source Pulse Rate Pulse Rate [Apical] Pulse Rate from SpO2 Sensor Pulse Rhythm Pulse Rhythm [Apical] Pulse Strength [Apical] Respiratory Rate Respiratory Effort / Characteristics Respiratory Depth Respiratory Pattern Blood Pressure 102/65 102/65 102/65 Blood Pressure [Right Arm] Blood Pressure Mean 83 83 83 Blood Pressure Mean [Right Arm] Blood Pressure Position [Right Arm] Pulse Oximetry Oxygen Delivery Method Oxygen Flow Rate Sepsis Recent Fever Within 48 Hours Sepsis New/Unexplained Change in Mental Status Sepsis Action Taken by Nursing 03/15/25 19:00 03/15/25 19:12 03/15/25 19:15 Temperature Temperature Source Pulse Rate 93 H 93 H Pulse Rate [Apical] Pulse Rate from SpO2 Sensor 93 H 94 H Pulse Rhythm Pulse Rhythm [Apical] Pulse Strength [Apical] Respiratory Rate 23 39 H Respiratory Effort / Characteristics Respiratory Depth Respiratory Pattern Blood Pressure 111/71 Blood Pressure [Right Arm] Blood Pressure Mean 85 Blood Pressure Mean [Right Arm] Blood Pressure Position [Right Arm] Pulse Oximetry 90 91 Oxygen Delivery Method Nasal Cannula Oxygen Flow Rate 2 Sepsis Recent Fever Within 48 Hours Sepsis New/Unexplained Change in Mental Status Sepsis Action Taken by Nursing 03/15/25 19:15 03/15/25 19:15 03/15/25 19:15 Temperature Temperature Source Pulse Rate Pulse Rate [Apical] Pulse Rate from SpO2 Sensor Pulse Rhythm Pulse Rhythm [Apical] Pulse Strength [Apical] Respiratory Rate Respiratory Effort / Characteristics Respiratory Depth Respiratory Pattern Blood Pressure 111/71 111/71 111/71 Blood Pressure [Right Arm] Blood Pressure Mean 85 85 85 Blood Pressure Mean [Right Arm] Blood Pressure Position [Right Arm] Pulse Oximetry Oxygen Delivery Method Oxygen Flow Rate Sepsis Recent Fever Within 48 Hours Sepsis New/Unexplained Change in Mental Status Sepsis Action Taken by Nursing 03/15/25 19:15 03/15/25 19:15 03/15/25 19:21 Temperature Temperature Source Pulse Rate 93 H 92 H Pulse Rate [Apical] Pulse Rate from SpO2 Sensor 93 H 93 H Pulse Rhythm Pulse Rhythm [Apical] Pulse Strength [Apical] Respiratory Rate 20 17 Respiratory Effort / Characteristics Respiratory Depth Respiratory Pattern Blood Pressure 111/71 Blood Pressure [Right Arm] Blood Pressure Mean 85 Blood Pressure Mean [Right Arm] Blood Pressure Position [Right Arm] Pulse Oximetry 96 97 Oxygen Delivery Method Oxygen Flow Rate Sepsis Recent Fever Within 48 Hours Sepsis New/Unexplained Change in Mental Status Sepsis Action Taken by Nursing Physical Exam GENERAL: oriented to person, place, and time. appears well-developed and well- nourished. HENT: Exam performed. - Head: Normocephalic and atraumatic. EYES: Conjunctivae and EOM are normal. Right eye exhibits no discharge. Left eye exhibits no discharge. No scleral icterus. NECK: Normal range of motion. Neck supple. No JVD present. CV: Tachycardic rate, regular rhythm, normal heart sounds and intact distal pulses. There is no peripheral edema. Palpable radial pulses bue. PULM/CHEST: Effort normal and breath sounds normal. No respiratory distress. No stridor. no wheezes. no rales. ABD: The abdomen is soft. There is no tenderness. NEURO: Motor and sensation grossly intact. SKIN: Skin is warm and dry. He is not diaphoretic. PSYCH: normal mood and affect. Behavior is normal. Judgment and thought content normal. Course Course 1736: The patient was evaluated in room B11. A complete history and physical exam was performed Cardiac monitoring: An order was placed for continuous cardiac monitoring. The monitor shows a rate of 100 with sinus rhythm interpreted by me 1900: Patient became hypoxic on room air. Supplemental oxygen applied via nasal cannula which improved the patient's oxygen saturation. Patient's lactic acid 4.4. Patient ordered 30 cc/kg normal saline bolus. Cefepime ordered for the patient. 2134: Vital signs stable on supplemental oxygen via nasal cannula. Labs show leukocytosis 26.48 coagulation studies are unremarkable. VBG is unremarkable. Creatinine 2.35 high-sensitivity troponin 30. Total bilirubin 2 direct bilirubin 0.4 AST 279 ALT 37 alkaline phosphatase 980. Procalcitonin 3.27. CT head and chest x-ray unremarkable.CT abdomen pelvis shows extensive intrahepatic metastatic disease but negative for acute intra-abdominal pathology. Administered Medications Discontinued Medications Sodium Chloride (Nss) 500 mls @ 999 mls/hr IV .Q31M BERNARDA Stop: 03/15/25 18:15 Last Infusion: 03/15/25 19:07 Dose: Infused Documented By: Admin: 03/15/25 18:40 Dose: 999 mls/hr Documented By: RICHARD Sodium Chloride (Nss) 1,000 mls @ 999 mls/hr IV .Q1H1M ONE Stop: 03/15/25 19:58 Last Infusion: 03/15/25 23:58 Dose: Infused Documented By: karthik Admin: 03/15/25 19:06 Dose: 999 mls/hr Documented By: RICHARD Sodium Chloride (Nss) 500 mls @ 999 mls/hr IV .Q31M ONE Stop: 03/15/25 19:28 Last Infusion: 03/15/25 23:58 Dose: Infused Documented By: karthik Admin: 03/15/25 22:40 Dose: 999 mls/hr Documented By: TATI Cefepime HCl (Maxipime 2000mg) 2,000 mg in 20 mls @ 5 mls/min IV NOW STA; Protocol Stop: 03/15/25 19:01 Last Admin: 03/15/25 19:06 Dose: 5 mls/min Documented By: RICHARD Metronidazole (Flagyl) 500 mg in 100 mls @ 100 mls/hr IV NOW STA; Protocol Stop: 03/15/25 22:46 Last Infusion: 03/15/25 23:57 Dose: Infused Documented By: karthik Admin: 03/15/25 22:41 Dose: 100 mls/hr Documented By: TATI Critical Care Time Critical Care Time: Yes Total Critical Care Time: 48 I have personally spent greater than 48 minutes of critical care time in the direct management of this patient. This includes bedside care, interpretation of diagnostic studies, and testing, discussion with consultants, patient, and family members, and other required patient management activities. This 48 minutes is in excess of all separately billable procedures. Medical Decision Making Laboratory Data Attestation: I reviewed the patient's lab results. 03/15/25 18:27 03/15/25 18:27 Lab Results 03/15/25 03/15/25 03/15/25 Range/Units 18:27 18:34 20:46 WBC 26.48 H (4.8-10.8) K/ul RBC 4.37 (4.20-5.40) M/uL Hgb 13.6 (12.0-16.0) g/dL POC Hgb 14.6 (12.0-16.0) g/dl Hct 39.5 (37.0-47.0) % POC Hct 43 (37-47) % MCV 90.4 (80.0-100.0) fL MCH 31.1 (25.0-34.0) pg MCHC 34.4 (32.0-36.0) g/dL RDW Std Deviation 56.8 H (36.4-46.3) fL RDW Coeff of Thien 17.3 H (11.5-14.5) % Plt Count 131 (130-400) K/uL MPV 11.2 (9.4-12.4) fL Immature Gran % (Auto) 0.7 % Neut % (Auto) 84.8 % Lymph % (Auto) 7.3 % [place] % (Auto) 6.6 % Eos % (Auto) 0.3 % Baso % (Auto) 0.3 % Neut # (Auto) 22.41 H (1.40-6.50) K/uL Lymph # (Auto) 1.94 (1.20-3.40) K/uL [place] # (Auto) 1.76 H (0.11-0.59) K/uL Eos # (Auto) 0.09 (0.00-0.50) K/uL Baso # (Auto) 0.09 (0.00-0.20) K/uL Immature Gran # (Auto) 0.19 (0.01-0.20) K/uL Polychromasia 2+ Echinocytes 2+ PT 15.6 H (9.0-12.0) Seconds INR 1.5 H (0.9-1.1) APTT 29 (21-31) Seconds PTT Ratio 1.1 VBG pH 7.38 (7.36-7.41) VBG pCO2 34 L (38-50) mmHg VBG pO2 39 mmHg VBG HCO3 20 mmol/L VBG O2 Saturation < 60.0 % VBG Base Excess -4.2 mEq/L POC Sodium 138 (135-144) mmol/L Sodium 139 (136-145) mmol/L POC Potassium 4.9 (3.3-5.0) mmol/L Potassium 5.1 (3.5-5.1) mmol/L POC Chloride 108 (101-112) mmol/L Chloride 108 H (98-107) mmol/L Carbon Dioxide 20 L (21-32) mmol/L POC Total CO2 18 L (24-31) mmol/L Anion Gap 11 (3-11) POC Anion Gap 18.0 (16-25) mmol/L POC BUN 37 H (7-18) mg/dl BUN 42 H (6-23) mg/dl Creatinine 2.35 H (0.6-1.2) mg/dl POC Creatinine 2.6 H (0.6-1.3) mg/dl Est Cr Clr Drug Dosing 16.7 ml/min eGFR 19.93 BUN/Creatinine Ratio 17.9 (10-20) Glucose 121 H (70-99(Fasting)) mg/dl POC Glucose (other) 115 H (70-99) mg/dl Lactate 4.4 H* 2.6 H* (0.4-2.0) mmol/L Calcium 10.7 H (8.6-10.3) mg/dl POC Ioniz Calcium Justina 1.31 (1.12-1.32) mmol/l Magnesium 1.7 (1.7-2.4) mg/dl Total Bilirubin 2.0 H (0.2-1.0) mg/dl Direct Bilirubin 0.4 H (0-0.2) mg/dl AST 279 H (13-39) U/L ALT 37 (7-52) U/L Alkaline Phosphatase 980 H (34-104) U/L Troponin I High Sens 30.7 H 52.9 H* D (0-14) pg/ml Total Protein 5.0 L (6.0-8.3) gm/dl Albumin 3.1 L (3.4-5.0) gm/dl Procalcitonin 3.27 H (0-0.5) ng/ml Urine Color Urine Appearance (Clear) Urine pH (4.5-7.5) Ur Specific [place] (1.000-1.030) Urine Protein (Negative) Urine Glucose (UA) (Negative) Urine Ketones (Negative) Urine Blood (Negative) Urine Nitrite (Negative) Urine Bilirubin (Negative) Urine Urobilinogen (Negative) Ur Leukocyte Esterase (Negative) Urine WBC (Auto) (0-5) /hpf Urine RBC (Auto) (0-2) /hpf U Hyaline Cast (Auto) (0-2) /lpf U Epithel Cells (Auto) (0-2) /hpf Urine Bacteria (Auto) (None Seen) Hyaline Casts (None Presnt) /lpf Urine Comment Adenovirus (PCR) Not Detected (NotDetected) B. pertussis DNA (PCR) Not Detected (NotDetected) B.parapertussis DNA PCR Not Detected (NotDetected) C. pneumoniae DNA (PCR) Not Detected (NotDetected) Coronavirus OC43 (PCR) Not Detected (NotDetected) Coronavirus HKU1 (PCR) Not Detected (NotDetected) Coronavirus 229E (PCR) Not Detected (NotDetected) SARS-CoV-2 (PCR) Not Detected (NotDetected) Coronavirus NL63 (PCR) Not Detected (NotDetected) Human Metapneumovir PCR Not Detected (NotDetected) Influenza Type A (PCR) Not Detected (NotDetected) Influenza Type B (PCR) Not Detected (NotDetected) M. pneumoniae (PCR) Not Detected (NotDetected) Parainfluenza 1 (PCR) Not Detected (NotDetected) Parainfluenza 2 (PCR) Not Detected (NotDetected) Parainfluenza 3 (PCR) Not Detected (NotDetected) Parainfluenza 4 (PCR) Not Detected (NotDetected) RSV (PCR) Not Detected (NotDetected) Entero/Rhino (PCR) Not Detected (NotDetected) 03/15/25 Range/Units 21:05 WBC (4.8-10.8) K/ul RBC (4.20-5.40) M/uL Hgb (12.0-16.0) g/dL POC Hgb (12.0-16.0) g/dl Hct (37.0-47.0) % POC Hct (37-47) % MCV (80.0-100.0) fL MCH (25.0-34.0) pg MCHC (32.0-36.0) g/dL RDW Std Deviation (36.4-46.3) fL RDW Coeff of Thien (11.5-14.5) % Plt Count (130-400) K/uL MPV (9.4-12.4) fL Immature Gran % (Auto) % Neut % (Auto) % Lymph % (Auto) % [place] % (Auto) % Eos % (Auto) % Baso % (Auto) % Neut # (Auto) (1.40-6.50) K/uL Lymph # (Auto) (1.20-3.40) K/uL [place] # (Auto) (0.11-0.59) K/uL Eos # (Auto) (0.00-0.50) K/uL Baso # (Auto) (0.00-0.20) K/uL Immature Gran # (Auto) (0.01-0.20) K/uL Polychromasia Echinocytes PT (9.0-12.0) Seconds INR (0.9-1.1) APTT (21-31) Seconds PTT Ratio VBG pH (7.36-7.41) VBG pCO2 (38-50) mmHg VBG pO2 mmHg VBG HCO3 mmol/L VBG O2 Saturation % VBG Base Excess mEq/L POC Sodium (135-144) mmol/L Sodium (136-145) mmol/L POC Potassium (3.3-5.0) mmol/L Potassium (3.5-5.1) mmol/L POC Chloride (101-112) mmol/L Chloride (98-107) mmol/L Carbon Dioxide (21-32) mmol/L POC Total CO2 (24-31) mmol/L Anion Gap (3-11) POC Anion Gap (16-25) mmol/L POC BUN (7-18) mg/dl BUN (6-23) mg/dl Creatinine (0.6-1.2) mg/dl POC Creatinine (0.6-1.3) mg/dl Est Cr Clr Drug Dosing ml/min eGFR BUN/Creatinine Ratio (10-20) Glucose (70-99(Fasting)) mg/dl POC Glucose (other) (70-99) mg/dl Lactate (0.4-2.0) mmol/L Calcium (8.6-10.3) mg/dl POC Ioniz Calcium [place] (1.12-1.32) mmol/l Magnesium (1.7-2.4) mg/dl Total Bilirubin (0.2-1.0) mg/dl Direct Bilirubin (0-0.2) mg/dl AST (13-39) U/L ALT (7-52) U/L Alkaline Phosphatase (34-104) U/L Troponin I High Sens (0-14) pg/ml Total Protein (6.0-8.3) gm/dl Albumin (3.4-5.0) gm/dl Procalcitonin (0-0.5) ng/ml Urine Color [place] Urine Appearance Cloudy A (Clear) Urine pH 5.5 (4.5-7.5) Ur Specific [place] 1.018 (1.000-1.030) Urine Protein 2+ H (Negative) Urine Glucose (UA) Negative (Negative) Urine Ketones Trace H (Negative) Urine Blood 3+ H (Negative) Urine Nitrite Negative (Negative) Urine Bilirubin Negative (Negative) Urine Urobilinogen Negative (Negative) Ur Leukocyte Esterase 1+ H (Negative) Urine WBC (Auto) 11-20 H (0-5) /hpf Urine RBC (Auto) >20 H (0-2) /hpf U Hyaline Cast (Auto) 11-20 H (0-2) /lpf U Epithel Cells (Auto) 0-2 (0-2) /hpf Urine Bacteria (Auto) None Seen (None Seen) Hyaline Casts Present A (None Presnt) /lpf Urine Comment Adenovirus (PCR) (NotDetected) B. pertussis DNA (PCR) (NotDetected) B.parapertussis DNA PCR (NotDetected) C. pneumoniae DNA (PCR) (NotDetected) Coronavirus OC43 (PCR) (NotDetected) Coronavirus HKU1 (PCR) (NotDetected) Coronavirus 229E (PCR) (NotDetected) SARS-CoV-2 (PCR) (NotDetected) Coronavirus NL63 (PCR) (NotDetected) Human Metapneumovir PCR (NotDetected) Influenza Type A (PCR) (NotDetected) Influenza Type B (PCR) (NotDetected) M. pneumoniae (PCR) (NotDetected) Parainfluenza 1 (PCR) (NotDetected) Parainfluenza 2 (PCR) (NotDetected) Parainfluenza 3 (PCR) (NotDetected) Parainfluenza 4 (PCR) (NotDetected) RSV (PCR) (NotDetected) Entero/Rhino (PCR) (NotDetected) Imaging Data Radiologist's Impression: Chest X-Ray 03/15/25 17:37 Chest radiograph, one view History: Sepsis Comparison: 02/20/2025 Findings/impression: Single AP view of the chest performed. Trace bilateral pleural effusions appear to persist. No focal consolidation. No pneumothorax. The cardiac silhouette appears within normal limits. Prominence of the pulmonary arteries. Right chest wall port with catheter tip at the superior atrial caval junction. Resection changes of the right upper lung. Bilateral shoulder arthroplasty. Electronically signed by Julian Reid 03-15-2025 7:[address] 03/15/25 17:38 Clinical History: Altered mental status Technique: Axial computed tomography images were obtained of the brain without intravenous contrast. Comparison is made to the prior CT dated 02/20/2025 Findings: There is unchanged cerebral atrophy, within expected limits for the patient's age. Areas of decreased attenuation are seen within the periventricular white matter, likely representing chronic small vessel ischemic disease. There is no definite sign of acute or old infarction. No intracranial hemorrhage is evident. No definite mass lesion is seen on this noncontrast examination. There is no midline shift or other form of herniation. No hydrocephalus is seen. No fracture is identified. The orbits and the visualized paranasal sinuses appear unremarkable. The mastoid air cells appear clear. Impression: 1. Cerebral atrophy and chronic small vessel ischemic disease 2. Otherwise unremarkable noncontrast CT of the brain Electronically signed by Oneal Juan 03-15-2025 7:51 PM Abdomen/Pelvis CT 03/15/25 18:58 CT of the abdomen pelvis without contrast Technique: Noncontrast axial images of the abdomen pelvis. Coronal and sagittal reformatted images made available for review Comparison made to prior exam dated 02/21/2024 Findings: Atelectasis. Right lower lobe small right pleural effusion. Coronary artery calcifications. Right hilar calcified lymph nodes incompletely evaluated on this exam. Although evaluation of solid abdominal organs is limited secondary to lack of IV contrast there appear to be innumerable intrahepatic masses concerning for metastatic disease. Evaluation of the uses precluded given the lack of IV contrast. Grossly they appear unchanged from prior study. No hydroureteronephrosis. Cholelithiasis without evidence of acute cholecystitis. HepatomegalyTrace free fluid within the dependent pelvis. Nonobstructing bilateral intrarenal calculi. Remaining solid abdominal organs are grossly unremarkable on this unenhanced CT scan. Postoperative changes ORIF left femoral fracture. Bone windows demonstrate innumerable osseous sclerotic metastatic lesions. No acute fractures or dislocation identified on this exam. Impression CT of the abdomen pelvis grossly negative for acute intraabdominal pathology Grossly stable extensive extensive intrahepatic metastatic disease incompletely evaluated on this exam Extensive osseous metastatic disease stable and compared with prior study. Electronically signed by Edward Griffin 03-15-2025 8:39 PM ECG Data Attestation: I personally reviewed and interpreted this ECG as follows: Rate (beats per minute): 89 Rhythm: + normal sinus ECG Intervals/blocks: + Normal QRS, + Normal DC and + Normal QT-c ECG ST segments: + Normal ST segments [facility] Narrative 1737: The patient was evaluated in room B11. A complete history and physical exam was performed Cardiac monitoring: An order was placed for continuous cardiac monitoring. The monitor shows a rate of 100 with sinus rhythm interpreted by me 1900: Patient became hypoxic on room air. Supplemental oxygen applied via nasal cannula which improved the patient's oxygen saturation. Patient's lactic acid 4.4. Patient ordered 30 cc/kg normal saline bolus. Cefepime ordered for the patient. 2134: Vital signs stable on supplemental oxygen via nasal cannula. Labs show leukocytosis 26.48 coagulation studies are unremarkable. VBG is unremarkable. Creatinine 2.35 high-sensitivity troponin 30. Total bilirubin 2 direct bilirubin 0.4 AST 279 ALT 37 alkaline phosphatase 980. Procalcitonin 3.27. CT head and chest x-ray unremarkable.CT abdomen pelvis shows extensive intrahepatic metastatic disease but negative for acute intra-abdominal pathology. Impression & Plan Sepsis, Hypoxia Discharge Plan Visit Data Chief Complaint: Urinary Symptoms Stated Complaint: UTI, LOW GRADE FEVER, DOC REFERRAL ED Provider: Laci Andrade Discharge Problem: Sepsis, Hypoxia Patient Disposition: Admitted As Inpatient Condition: Serious Discharge Instructions Interventions: ED Discharge Assessment Last Done: 03/15/25 23:31 Discharge Problem: Sepsis Qualifiers: Sepsis type: sepsis due to unspecified organism Sepsis acute organ dysfunction status: with acute organ dysfunction Severe sepsis acute organ dysfunction type: acute renal failure Acute renal failure type: unspecified Severe sepsis shock status: without septic shock Qualified Code(s): A41.9 - Sepsis, unspecified organism; R65.20 - Severe sepsis without septic shock; N17.9 - Acute kidney failure, unspecified
[2025-03-15] MEDS ORDERED: GLUCOSE 40% GEL 15 GM TUBE PO PRN (23:56)
[2025-03-15] MEDS ORDERED: GLUCAGON FOR INJ 1 MG VIAL SQ PRN (23:56)
[2025-03-15] MEDS ORDERED: DEXTROSE 50% 50 ML SYRINGE IV PRN (23:56)
[2025-03-15] MEDS ORDERED: GLUCOSE 10 TAB/TUBE PO PRN (23:56)
[2025-03-16] MEDS: SODIUM CHLORIDE 0.9% 1,000 ML IV ONE ×2 (00:13→05:29)
[2025-03-16] MEDS: INSULIN ASPART PER UNIT CHARGE SC SCH (00:18)
[2025-03-16] MEDS: APIXABAN 2.5 MG TAB PO SCH (00:55)
[2025-03-16] MEDS: AZTREONAM 2,000 MG in DEXTROSE 5% MINI-B 100 ML IV SCH (03:05)
[2025-03-16 07:08] LABS: Hematocrit (blood only) 36.3 % (37.0-47.0); Hemoglobin 12.2 g/dL (12.0-16.0); Immature Granulocytes # (auto) 0.16 K/uL (0.01-0.20); Immature Granulocytes % (auto) 0.7 %; Mean Corpuscular Hemoglobin 30.2 pg (25.0-34.0); Mean Corpuscular Volume 89.9 fL (80.0-100.0); Platelet Count 104 K/uL (130-400); RDW Standard Deviation 57.5 fL (36.4-46.3); Red Blood Count 4.04 M/uL (4.20-5.40); White Blood Count 21.94 K/ul (4.8-10.8)
[2025-03-16 07:24] LABS: Alanine Aminotransferase 33.0 U/L (7-52); Albumin Globulin Ratio 1.7 (0.9-2); Albumin Level 2.7 gm/dl (3.4-5.0); Alkaline Phosphatase 785.0 U/L (34-104); Anion Gap 4.0 (3-11); Bilirubin,Total 1.5 mg/dl (0.2-1.0); Blood Urea Nitrogen 41.0 mg/dl (6-23); Calcium 8.9 mg/dl (8.6-10.3); Carbon Dioxide 23.0 mmol/L (21-32); Chloride 112.0 mmol/L (98-107); Creatinine Clr Calc Pharmacy 20.3 ml/min; Globulin 1.6 gm/dl (2.5-4.0); Glucose 98.0 mg/dl (70-99(Fasting)); Potassium 4.4 mmol/L (3.5-5.1); Sodium 139.0 mmol/L (136-145); Total Protein 4.3 gm/dl (6.0-8.3)
[2025-03-16] MEDS: ATORVASTATIN 20 MG TAB PO SCH (08:36)
[2025-03-16] MEDS: CITALOPRAM 20 MG TAB PO SCH (08:36)
[2025-03-16] MEDS: METOPROLOL SUCC 25MG EXT REL TAB PO SCH (08:36)
--- NOTE | 2025-03-16 08:54 | Hospitalist Progress Note ---
Date of Service March 16, 2025 Assessment & Plan (1) Encephalopathy: Plan: 84F hypertension, paroxysmal AFib/PE on Eliquis, NAYA on CPAP, hx BRCA gene mutation, recurrent NSCLC status post surgery/chemotherapy, breast cancer, L sp surgery and chemotherapy, uterine cancer sp surgery/chemotherapy, acoustic neuroma as per records, skin cancer, DM2 diet-controlled, CKD3 hypercalcemia of malignancy, mood disorder presents with AMS #Sepsis -Mild sepsis with hypotension, tachycardia, leukocytosis, elevated lactate and AMS -Likely from UTI. no other source of infection identified -Sepsis resolving Plan -DC Aztreonam. Continue cefepime with her history of PSA -Follow urine and blood cultures #ALCIRA on CKD3 -Pre renal from sepsis -Improving with IVF Plan -Continue IVF for today -Avoid nephrotoxic agents if possible -BMP in AM #GOC discussion -D/w Son on phone 03/16, he wishes to have a family meeting with palliative care to discuss hospice -DNR DNI for now #Elevated troponin -Type II demand NSTEMI secondary to sepsis -Low suspicion for ACS #Metabolic encephalopathy -Secondary to sepsis from UTI + ALCIRA on CKD3 -Resolving -Treat underlying issues #Pleural effusions -Trace stable effusions on CXR -On 2L NC but was not hypoxic -Wean off O2 #NSCLC -Follows with oncology -Metastatic #pAFib -Continue eliquis toprol #History of PE -Eliquis Admission and Anticipated Discharge Date Admission Date: March 15, 2025 Subjective Feeling much better this AM. she denies any specific complaints to author. Patie nt denies F/C, CP, palpitations, SOB, dyspnea, abd pain, N/V/D. D/w son jose Physical Exam Physical Exam: Vitals and labs reviewed General: frail, elderly chronically ill appearing NAD HEENT: EOMI, PERRLA Neck: Supple Cardiac: RRR no rubs gallops or murmurs Lungs: CTA no rhonchi wheezing or rales Abd: S NT ND BS positive : Deffered MSK: Full ROM. No obvious deformities Ext: No Edema cyanosis Skin: Warm, Dry Neuro: AOx3 No focal deficits. Psych: Normal Mood Results & Data Results & Data Vital Signs (Past 12 Hours) Vital Signs Temp Pulse Pulse Resp BP BP Pulse Ox 03/16/25 07:44 36.3 C L 97 H 18 143/74 H 95 03/16/25 07:26 90 03/16/25 03:19 36.3 C L 96 H 16 108/59 L 96 03/16/25 00:47 03/16/25 00:47 36.8 C 89 18 134/67 97 03/16/25 00:41 98 H 03/15/25 23:56 36.8 C 89 18 134/67 97 03/15/25 23:56 03/15/25 23:31 97 H 19 123/75 97 03/15/25 22:55 97 H 03/15/25 22:45 96 H 20 129/88 95 Pulse Ox O2 Del Method O2 Del Method O2 Flow Rate O2 Flow Rate 03/16/25 07:44 Nasal Cannula 2 03/16/25 07:26 03/16/25 03:19 Nasal Cannula 2 03/16/25 00:47 Nasal Cannula 2 03/16/25 00:47 Nasal Cannula 2 03/16/25 00:41 03/15/25 23:56 Nasal Cannula 2 03/15/25 23:56 97 Nasal Cannula 2 03/15/25 23:31 Nasal Cannula 2 03/15/25 22:55 03/15/25 22:45 Room Air Laboratory Results Abnormal lab results 03/15/25 03/15/25 03/15/25 Range/Units 18:27 18:34 20:46 WBC 26.48 H (4.8-10.8) K/ul RBC (4.20-5.40) M/uL Hct (37.0-47.0) % RDW Std Deviation 56.8 H (36.4-46.3) fL RDW Coeff of Thien 17.3 H (11.5-14.5) % Plt Count (130-400) K/uL Neut # (Auto) 22.41 H (1.40-6.50) K/uL [place] # (Auto) 1.76 H (0.11-0.59) K/uL PT 15.6 H (9.0-12.0) Seconds INR 1.5 H (0.9-1.1) VBG pCO2 34 L (38-50) mmHg Chloride 108 H (98-107) mmol/L Carbon Dioxide 20 L (21-32) mmol/L POC Total CO2 18 L (24-31) mmol/L POC BUN 37 H (7-18) mg/dl BUN 42 H (6-23) mg/dl Creatinine 2.35 H (0.6-1.2) mg/dl POC Creatinine 2.6 H (0.6-1.3) mg/dl BUN/Creatinine Ratio (10-20) Glucose 121 H (70-99(Fasting)) mg/dl POC Glucose (other) 115 H (70-99) mg/dl Lactate 4.4 H* 2.6 H* (0.4-2.0) mmol/L Calcium 10.7 H (8.6-10.3) mg/dl Total Bilirubin 2.0 H (0.2-1.0) mg/dl Direct Bilirubin 0.4 H (0-0.2) mg/dl AST 279 H (13-39) U/L Alkaline Phosphatase 980 H (34-104) U/L Troponin I High Sens 30.7 H 52.9 H* D (0-14) pg/ml Total Protein 5.0 L (6.0-8.3) gm/dl Albumin 3.1 L (3.4-5.0) gm/dl Globulin (2.5-4.0) gm/dl Procalcitonin 3.27 H (0-0.5) ng/ml Urine Appearance (Clear) Urine Protein (Negative) Urine Ketones (Negative) Urine Blood (Negative) Ur Leukocyte Esterase (Negative) Urine WBC (Auto) (0-5) /hpf Urine RBC (Auto) (0-2) /hpf U Hyaline Cast (Auto) (0-2) /lpf Hyaline Casts (None Presnt) /lpf 03/15/25 03/16/25 Range/Units 21:05 06:09 WBC 21.94 H (4.8-10.8) K/ul RBC 4.04 L (4.20-5.40) M/uL Hct 36.3 L (37.0-47.0) % RDW Std Deviation 57.5 H (36.4-46.3) fL RDW Coeff of Thien 17.5 H (11.5-14.5) % Plt Count 104 L (130-400) K/uL Neut # (Auto) 17.89 H (1.40-6.50) K/uL [place] # (Auto) 1.91 H (0.11-0.59) K/uL PT (9.0-12.0) Seconds INR (0.9-1.1) VBG pCO2 (38-50) mmHg Chloride 112 H (98-107) mmol/L Carbon Dioxide (21-32) mmol/L POC Total CO2 (24-31) mmol/L POC BUN (7-18) mg/dl BUN 41 H (6-23) mg/dl Creatinine 1.98 H D (0.6-1.2) mg/dl POC Creatinine (0.6-1.3) mg/dl BUN/Creatinine Ratio 20.7 H (10-20) Glucose (70-99(Fasting)) mg/dl POC Glucose (other) (70-99) mg/dl Lactate (0.4-2.0) mmol/L Calcium (8.6-10.3) mg/dl Total Bilirubin 1.5 H (0.2-1.0) mg/dl Direct Bilirubin (0-0.2) mg/dl AST 310 H (13-39) U/L Alkaline Phosphatase 785 H (34-104) U/L Troponin I High Sens 1788.5 H* D (0-14) pg/ml Total Protein 4.3 L (6.0-8.3) gm/dl Albumin 2.7 L (3.4-5.0) gm/dl Globulin 1.6 L (2.5-4.0) gm/dl Procalcitonin (0-0.5) ng/ml Urine Appearance Cloudy A (Clear) Urine Protein 2+ H (Negative) Urine Ketones Trace H (Negative) Urine Blood 3+ H (Negative) Ur Leukocyte Esterase 1+ H (Negative) Urine WBC (Auto) 11-20 H (0-5) /hpf Urine RBC (Auto) >20 H (0-2) /hpf U Hyaline Cast (Auto) 11-20 H (0-2) /lpf Hyaline Casts Present A (None Presnt) /lpf
--- NOTE | 2025-03-16 13:05 | Palliative Care Consultation ---
Date of Consultation March 16, 2025 Assessment & Plan (1) Weakness generalized: (2) Anxiety and depression: (3) Advanced care planning/counseling discussion: I had a 40min 2-way audio-visual telemed ACP w/Dede family, but Dianne was unable to participate. Present for this meeting were both her sons and their respective wives. The sons shared they believe it is time for hospice and as a family they agree on the goal of comfort as priority for Dianne at this time. The older daughter in law asked many questions re : how/when to bring her back to the hospital "for treatment." I told them she is transitioning from a process of living to a process of dying and we are no longer in a place of treating things but rather we need to shift focus to be more about her comfort and QOL. We discussed hospice in great detail. The daughter in law she lives with is a reliability technologist RN demonstrated a very clear understanding of the circumstances. I provided education about the hospice benefit: an interdisciplinary program offered by nurses, nurses aides, social workers, chaplains and a medical education coordinator for patients with a terminal condition and a life expectancy of less than 6 months. This is covered by Medicare at 100%/no out of pocket expense to patient and all meds/supplies needed by patient for the reason they are on hospice are paid for/covered by hospice. The goal is assure quality of life of the patient in their home setting (home, [facility], inpatient hospice s etting) by providing symptoms management, psychosocial and spiritual support. However, they cannot offer 24 hours care and if the family is unable to provide that care, they will have to consider personal care with out of pocket cost vs. [facility] placement. We discussed the goals of hospice as a patient service and the goals of care; we discussed EOL trajectories and transitions genaro the emotional impact of realizing mortality as a concrete reality from prior abstract considerations. Pt was reassured that no matter where they are along this trajectory, they are not alone - their medical team will remain by their side through their journey. Discussed the pros/cons of accepting help when especially weakened and distressed by pain-which would also help provide relief/decrease caregiver burden/strain. The family did not want to make a decision today. They asked for time to see if Dianne's mental status can clear up to where she can be a more active participant in this decision. They would ideally like for Dianne to tell them she wants hospice. I shared with them that historically, she has told me she is tired and tried to give it a good shot but she is afraid to let down her fami ly/have them be upset with her for not trying harder. I spent a good amount of time explaining her body is slowly shutting down and different organ systems will begin to malfunction further as the EOL process unfolds. I gave them a general overview of changes to come. I have offered to be available for a follow up telemed meeting anytime now thru the weekend, and if she has any acute worsening, to have an urgent family meeting with them at that time. For now they asked to follow up with me on Thursday, they want to see how the weekend goes for her. I am in cancer clinic on Mondays, so we agreed to a 345pm telemed visit by zoom for now. I am off tomorrow but will be available for this family, because I cared for Dianne's and then she became my patient. I have a long standing re lationship/rapport with this family and am happy to help them in every way. I am pageable by Drew for any acute needs. Alternatively, you can call me on my cell phone: [phone]. My partner, Henrietta Cortez, will round on Dianne tomorrow. I apologize for the long message but i wanted to update everyone together and keep the information consistent. I have also updated Dr Linton from [facility] oncology, he is in agreement for hospice and I advised family of that as well. (4) Palliative care by specialist: (5) Malignant pleural effusion: (6) Metastatic lung cancer (metastasis from lung to other site): (7) Non-small cell lung cancer: Plan As above Thank you for allowing us to participate in the ongoing care of this patient. Please page with any additional concerns. Kira Mann DNP Director, Palliative Medicine History of Present Illness Reason for Consultation: family meeting, ongoing C Attending Physician: Poli Swanson, DO History of Present Illness Dianne is well known to me from prior admissions and OP clinic She had a recent onc appt with Dr Emi Linton, Tigresso was stopped due to progressive decline, weakness, hypercalcemia Dr Linton recommended hospice and advised no further chemo They were scheduled to see me in clinic today but she had acute decline and was brought to ER overnight She is seen by 2 way audio-visual telemed via [facility] iPad with her sons x2 and dtr in laws x2 at bedside Dianne is lethargic not verbal and confused at baseline this admission She is repeatedly asking where she is At times she has been able to recognize family and asks for sips of water PS 4+ +FTT this is a recurrent admission/see prior notes After establishing a telemedicine visit, patient was verified with two unique identifiers. Patient (or authorized healthcare quality audit representative) acknowledged consent and understanding and gave permission to continue telemedicine session. Allergies Allergy/AdvReac Type Severity Reaction Status Date / Time castor oil Allergy Severe ANAPHYLAXIS Verified 03/15/25 19:43 paclitaxel Allergy Severe ANAPHYLAXIS Verified 03/15/25 19:43 ciprofloxacin Allergy Intermediate HIVES/RASH Verified 03/15/25 19:43 codeine AdvReac Intermediate GI SYMPTOMS Verified 03/15/25 19:43 cyproheptadine AdvReac Intermediate LETHARGY Verified 03/15/25 19:43 doxepin AdvReac Intermediate LETHARGY Verified 03/15/25 19:43 gabapentin AdvReac Intermediate GI Verified 03/15/25 19:43 SYMPTOMS/"FEEL OUT OF IT" hydrocodone AdvReac Intermediate GI SYMPTOMS Verified 03/15/25 19:43 meloxicam AdvReac Intermediate DIZZINESS, Verified 03/15/25 19:43 HEADACHE, NAUSEA oxycodone AdvReac Intermediate GI SYMPTOMS Verified 03/15/25 19:43 prednisone AdvReac Intermediate ELEVATED Verified 03/15/25 19:43 GLUCOSE tramadol AdvReac Intermediate GI SYMPTOMS Verified 03/15/25 19:43 Home Medications Medication Instructions Recorded Confirmed Type albuterol sulfate 90 mcg/actuation 2 puff inhalation QID PRN SOB 06/23/18 03/15/25 History aerosol inhaler amlodipine 10 mg tablet 10 mg PO QAM 06/23/18 03/15/25 History atorvastatin 20 mg tablet 20 mg PO QAM 06/23/18 03/15/25 History tizanidine 4 mg capsule 4 mg PO TID PRN MUSCLE SPASMS 06/23/18 03/15/25 History fluticasone propionate 50 2 spray intranasal QAM Congestion 12/19/19 03/15/25 History mcg/actuation nasal spray,suspension ondansetron HCl 8 mg tablet 8 mg PO Q8H PRN Nausea 12/19/19 03/15/25 History prochlorperazine maleate 10 mg 10 mg PO Q6H PRN Nausea 12/19/19 03/15/25 History tablet apixaban 5 mg tablet (Eliquis) 5 mg PO BID 12/30/21 03/15/25 History famotidine 20 mg tablet (Pepcid) 20 mg PO BID PRN Heartburn 12/30/21 03/15/25 History amoxicillin 500 mg capsule 2,000 mg PO DIRECTED PRN 1 HR 09/27/23 03/15/25 History PRIOR TO DENTAL PROCEDURES cholecalciferol (vitamin D3) 50 2,000 unit PO DAILY 09/27/23 03/15/25 History mcg (2,000 unit) capsule (Vitamin D3) citalopram 20 mg tablet 20 mg PO QAM 03/15/25 03/15/25 History lorazepam 0.5 mg tablet 0.5 mg PO BID PRN Anxiety 03/15/25 03/15/25 History metoprolol succinate 100 mg 100 mg PO QAM 03/15/25 03/15/25 History tablet,extended release 24 hr mirtazapine 15 mg tablet 15 mg PO HS 03/15/25 03/15/25 History potassium chloride 20 mEq/15 mL 10 meq PO BID 03/15/25 03/15/25 History oral liquid sulfamethoxazole 800 1 tab PO BID 03/15/25 03/15/25 History mg-trimethoprim 160 mg tablet Patient History Medical History Nausea & vomiting Hypomagnesemia History of venous thromboembolism Chronic nausea Hypercalcemia of malignancy Dyspnea and respiratory abnormalities History of Clostridioides difficile infection After abx, s/p vanco completed 12/31- diarrhea resolved per PAT visit 01/01 Pulmonary embolism 2020, reason for Eliquis; f/u dr morgan s once/year Sleep apnea Remote hx- no device currently ("lost device") History of bronchitis Reason for inhaler PRN, no recent issues Osteoporosis History of skin cancer Nose and left leg (s/p excision) History of breast cancer s/p chemo, left mastectomy; limb restriction lt arm History of lung cancer s/p RUL wedge resection NSCLC - on Osimertinib (Tagrisso) per heme/onc History of uterine cancer s/p Hysterectomy History of kidney stones Kidney disease Stage III Acid reflux Anxiety Gout Hx Hypertension Surgical History Hx of myringotomy Right ear tube 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, seeing ear sx on 03/13/22" Hx of cataract extraction R/L History of open reduction and internal fixation (ORIF) procedure Left femur fracture ORIF (12/21/19): SAB at L3/4 (x2 attempts) at [facility] History of surgery A-PORT (RIGHT) PLACED 2/2 CHEMO; Rt chest History of colonoscopy History of tonsillectomy and adenoidectomy History of total right knee replacement 05/19/17= SAB X 1 ATTEMPT + PNB AT [facility] History of left mastectomy History of lung surgery RIGHT LUNG NODULE EXCISION/PARTIAL LUNG RESECTION History of hysterectomy Family History Mother History of breast cancer History of ovarian cancer Grandmother History of colon cancer Social History Smoking Status: Never smoker Second Hand Exposure: No; Do You Dip or Chew Tobacco: No; Tobacco Cessation Education Requested by Patient: No Hx Alcohol Use: No Hx Substance Use: No Preferred Language: Welsh Communication Ability: Impaired [employer] Required: No Beliefs That Will Affect Care: None marital status: Current Living Situation: Family Current Living Situation Comment: lives in house Other Information That Helps Us Care for You: No Feels Safe at Home: Yes Safety Concerns: Feels Safe At This Time Assistive Devices: Cane, Walker and Wheelchair Review of Systems Review of Systems: Unobtainable due to reduced consciousness Physical Exam Physical Exam: limited by telemed lying semi recline in bed agitated and restless at times confused, not able to focus, cannot answer questions or follow simple commands +pallor noted appears weaker than prior exams Results & Data Vital Signs (Past 12 Hours) Vital Signs Temp Pulse Pulse Resp BP Pulse Ox O2 Del Method 03/16/25 08:30 Nasal Cannula 03/16/25 07:44 36.3 C L 97 H 18 143/74 H 95 Nasal Cannula 03/16/25 07:26 90 11/13/25 03:19 36.3 C L 96 H 16 108/59 L 96 Nasal Cannula O2 Flow Rate 03/16/25 08:30 2 03/16/25 07:44 2 03/16/25 07:26 03/16/25 03:19 2 Laboratory Results 03/16/25 03/16/25 03/16/25 Range/Units 20:06 16:37 11:20 WBC (4.8-10.8) K/ul RBC (4.20-5.40) M/uL Hgb (12.0-16.0) g/dL POC Hgb (12.0-16.0) g/dl Hct (37.0-47.0) % POC Hct (37-47) % MCV (80.0-100.0) fL MCH (25.0-34.0) pg MCHC (32.0-36.0) g/dL RDW Std Deviation (36.4-46.3) fL RDW Coeff of Thien (11.5-14.5) % Plt Count (130-400) K/uL MPV (9.4-12.4) fL Immature Gran % (Auto) % Neut % (Auto) % Lymph % (Auto) % Ashley % (Auto) % Eos % (Auto) % Baso % (Auto) % Neut # (Auto) (1.40-6.50) K/uL Lymph # (Auto) (1.20-3.40) K/uL Ashley # (Auto) (0.11-0.59) K/uL Eos # (Auto) (0.00-0.50) K/uL Baso # (Auto) (0.00-0.20) K/uL Immature Gran # (Auto) (0.01-0.20) K/uL Polychromasia Echinocytes PT (9.0-12.0) Seconds INR (0.9-1.1) APTT (21-31) Seconds PTT Ratio VBG pH (7.36-7.41) VBG pCO2 (38-50) mmHg VBG pO2 mmHg VBG HCO3 mmol/L VBG O2 Saturation % VBG Base Excess mEq/L POC Sodium (135-144) mmol/L Sodium (136-145) mmol/L POC Potassium (3.3-5.0) mmol/L Potassium (3.5-5.1) mmol/L POC Chloride (101-112) mmol/L Chloride (98-107) mmol/L Carbon Dioxide (21-32) mmol/L POC Total CO2 (24-31) mmol/L Anion Gap (3-11) POC Anion Gap (16-25) mmol/L POC BUN (7-18) mg/dl BUN (6-23) mg/dl Creatinine (0.6-1.2) mg/dl POC Creatinine (0.6-1.3) mg/dl Est Cr Clr Drug Dosing ml/min eGFR BUN/Creatinine Ratio (10-20) Glucose (70-99(Fasting)) mg/dl POC Glucose 79 74 101 H (70-99) mg/dl POC Glucose (other) (70-99) mg/dl Lactate (0.4-2.0) mmol/L Calcium (8.6-10.3) mg/dl POC Ioniz Calcium Justina (1.12-1.32) mmol/l Magnesium (1.7-2.4) mg/dl Total Bilirubin (0.2-1.0) mg/dl Direct Bilirubin (0-0.2) mg/dl AST (13-39) U/L ALT (7-52) U/L Alkaline Phosphatase (34-104) U/L Troponin I High Sens (0-14) pg/ml Total Protein (6.0-8.3) gm/dl Albumin (3.4-5.0) gm/dl Globulin (2.5-4.0) gm/dl Albumin/Globulin Ratio (0.9-2) Procalcitonin (0-0.5) ng/ml Urine Color Urine Appearance (Clear) Urine pH (4.5-7.5) Ur Specific [place] (1.000-1.030) Urine Protein (Negative) Urine Glucose (UA) (Negative) Urine Ketones (Negative) Urine Blood (Negative) Urine Nitrite (Negative) Urine Bilirubin (Negative) Urine Urobilinogen (Negative) Ur Leukocyte Esterase (Negative) Urine WBC (Auto) (0-5) /hpf Urine RBC (Auto) (0-2) /hpf U Hyaline Cast (Auto) (0-2) /lpf U Epithel Cells (Auto) (0-2) /hpf Urine Bacteria (Auto) (None Seen) Hyaline Casts (None Presnt) /lpf Urine Comment Adenovirus (PCR) (NotDetected) B. pertussis DNA (PCR) (NotDetected) B.parapertussis DNA PCR (NotDetected) C. pneumoniae DNA (PCR) (NotDetected) Coronavirus OC43 (PCR) (NotDetected) Coronavirus HKU1 (PCR) (NotDetected) Coronavirus 229E (PCR) (NotDetected) SARS-CoV-2 (PCR) (NotDetected) Coronavirus NL63 (PCR) (NotDetected) Human Metapneumovir PCR (NotDetected) Influenza Type A (PCR) (NotDetected) Influenza Type B (PCR) (NotDetected) M. pneumoniae (PCR) (NotDetected) Parainfluenza 1 (PCR) (NotDetected) Parainfluenza 2 (PCR) (NotDetected) Parainfluenza 3 (PCR) (NotDetected) Parainfluenza 4 (PCR) (NotDetected) RSV (PCR) (NotDetected) Entero/Rhino (PCR) (NotDetected) 03/16/25 03/16/25 03/16/25 Range/Units 07:53 06:09 00:35 WBC 21.94 H (4.8-10.8) K/ul RBC 4.04 L (4.20-5.40) M/uL Hgb 12.2 (12.0-16.0) g/dL POC Hgb (12.0-16.0) g/dl Hct 36.3 L (37.0-47.0) % POC Hct (37-47) % MCV 89.9 (80.0-100.0) fL MCH 30.2 (25.0-34.0) pg MCHC 33.6 (32.0-36.0) g/dL RDW Std Deviation 57.5 H (36.4-46.3) fL RDW Coeff of Thien 17.5 H (11.5-14.5) % Plt Count 104 L (130-400) K/uL MPV 12.1 (9.4-12.4) fL Immature Gran % (Auto) 0.7 % Neut % (Auto) 81.6 % Lymph % (Auto) 8.2 % Ashley % (Auto) 8.7 % Eos % (Auto) 0.5 % Baso % (Auto) 0.3 % Neut # (Auto) 17.89 H (1.40-6.50) K/uL Lymph # (Auto) 1.81 (1.20-3.40) K/uL Ashley # (Auto) 1.91 H (0.11-0.59) K/uL Eos # (Auto) 0.10 (0.00-0.50) K/uL Baso # (Auto) 0.07 (0.00-0.20) K/uL Immature Gran # (Auto) 0.16 (0.01-0.20) K/uL Polychromasia Echinocytes PT (9.0-12.0) Seconds INR (0.9-1.1) APTT (21-31) Seconds PTT Ratio VBG pH (7.36-7.41) VBG pCO2 (38-50) mmHg VBG pO2 mmHg VBG HCO3 mmol/L VBG O2 Saturation % VBG Base Excess mEq/L POC Sodium (135-144) mmol/L Sodium 139 (136-145) mmol/L POC Potassium (3.3-5.0) mmol/L Potassium 4.4 (3.5-5.1) mmol/L POC Chloride (101-112) mmol/L Chloride 112 H (98-107) mmol/L Carbon Dioxide 23 (21-32) mmol/L POC Total CO2 (24-31) mmol/L Anion Gap 4 (3-11) POC Anion Gap (16-25) mmol/L POC BUN (7-18) mg/dl BUN 41 H (6-23) mg/dl Creatinine 1.98 H D (0.6-1.2) mg/dl POC Creatinine (0.6-1.3) mg/dl Est Cr Clr Drug Dosing 20.3 ml/min eGFR 24.47 BUN/Creatinine Ratio 20.7 H (10-20) Glucose 98 (70-99(Fasting)) mg/dl POC Glucose 84 (70-99) mg/dl POC Glucose (other) (70-99) mg/dl Lactate 1.8 (0.4-2.0) mmol/L Calcium 8.9 9.3 (8.6-10.3) mg/dl POC Ioniz Calcium Justina (1.12-1.32) mmol/l Magnesium (1.7-2.4) mg/dl Total Bilirubin 1.5 H (0.2-1.0) mg/dl Direct Bilirubin (0-0.2) mg/dl AST 310 H (13-39) U/L ALT 33 (7-52) U/L Alkaline Phosphatase 785 H (34-104) U/L Troponin I High Sens 1788.5 H* D (0-14) pg/ml Total Protein 4.3 L (6.0-8.3) gm/dl Albumin 2.7 L (3.4-5.0) gm/dl Globulin 1.6 L (2.5-4.0) gm/dl Albumin/Globulin Ratio 1.7 (0.9-2) Procalcitonin (0-0.5) ng/ml Urine Color Urine Appearance (Clear) Urine pH (4.5-7.5) Ur Specific [place] (1.000-1.030) Urine Protein (Negative) Urine Glucose (UA) (Negative) Urine Ketones (Negative) Urine Blood (Negative) Urine Nitrite (Negative) Urine Bilirubin (Negative) Urine Urobilinogen (Negative) Ur Leukocyte Esterase (Negative) Urine WBC (Auto) (0-5) /hpf Urine RBC (Auto) (0-2) /hpf U Hyaline Cast (Auto) (0-2) /lpf U Epithel Cells (Auto) (0-2) /hpf Urine Bacteria (Auto) (None Seen) Hyaline Casts (None Presnt) /lpf Urine Comment Adenovirus (PCR) (NotDetected) B. pertussis DNA (PCR) (NotDetected) B.parapertussis DNA PCR (NotDetected) C. pneumoniae DNA (PCR) (NotDetected) Coronavirus OC43 (PCR) (NotDetected) Coronavirus HKU1 (PCR) (NotDetected) Coronavirus 229E (PCR) (NotDetected) SARS-CoV-2 (PCR) (NotDetected) Coronavirus NL63 (PCR) (NotDetected) Human Metapneumovir PCR (NotDetected) Influenza Type A (PCR) (NotDetected) Influenza Type B (PCR) (NotDetected) M. pneumoniae (PCR) (NotDetected) Parainfluenza 1 (PCR) (NotDetected) Parainfluenza 2 (PCR) (NotDetected) Parainfluenza 3 (PCR) (NotDetected) Parainfluenza 4 (PCR) (NotDetected) RSV (PCR) (NotDetected) Entero/Rhino (PCR) (NotDetected) 03/16/25 03/15/25 03/15/25 Range/Units 00:14 21:05 20:46 WBC (4.8-10.8) K/ul RBC (4.20-5.40) M/uL Hgb (12.0-16.0) g/dL POC Hgb (12.0-16.0) g/dl Hct (37.0-47.0) % POC Hct (37-47) % MCV (80.0-100.0) fL MCH (25.0-34.0) pg MCHC (32.0-36.0) g/dL RDW Std Deviation (36.4-46.3) fL RDW Coeff of Thien (11.5-14.5) % Plt Count (130-400) K/uL MPV (9.4-12.4) fL Immature Gran % (Auto) % Neut % (Auto) % Lymph % (Auto) % Ashley % (Auto) % Eos % (Auto) % Baso % (Auto) % Neut # (Auto) (1.40-6.50) K/uL Lymph # (Auto) (1.20-3.40) K/uL Ashley # (Auto) (0.11-0.59) K/uL Eos # (Auto) (0.00-0.50) K/uL Baso # (Auto) (0.00-0.20) K/uL Immature Gran # (Auto) (0.01-0.20) K/uL Polychromasia Echinocytes PT (9.0-12.0) Seconds INR (0.9-1.1) APTT (21-31) Seconds PTT Ratio VBG pH (7.36-7.41) VBG pCO2 (38-50) mmHg VBG pO2 mmHg VBG HCO3 mmol/L VBG O2 Saturation % VBG Base Excess mEq/L POC Sodium (135-144) mmol/L Sodium (136-145) mmol/L POC Potassium (3.3-5.0) mmol/L Potassium (3.5-5.1) mmol/L POC Chloride (101-112) mmol/L Chloride (98-107) mmol/L Carbon Dioxide (21-32) mmol/L POC Total CO2 (24-31) mmol/L Anion Gap (3-11) POC Anion Gap (16-25) mmol/L POC BUN (7-18) mg/dl BUN (6-23) mg/dl Creatinine (0.6-1.2) mg/dl POC Creatinine (0.6-1.3) mg/dl Est Cr Clr Drug Dosing ml/min eGFR BUN/Creatinine Ratio (10-20) Glucose (70-99(Fasting)) mg/dl POC Glucose 73 (70-99) mg/dl POC Glucose (other) (70-99) mg/dl Lactate 2.6 H* (0.4-2.0) mmol/L Calcium (8.6-10.3) mg/dl POC Ioniz Calcium Justina (1.12-1.32) mmol/l Magnesium (1.7-2.4) mg/dl Total Bilirubin (0.2-1.0) mg/dl Direct Bilirubin (0-0.2) mg/dl AST (13-39) U/L ALT (7-52) U/L Alkaline Phosphatase (34-104) U/L Troponin I High Sens 52.9 H* D (0-14) pg/ml Total Protein (6.0-8.3) gm/dl Albumin (3.4-5.0) gm/dl Globulin (2.5-4.0) gm/dl Albumin/Globulin Ratio (0.9-2) Procalcitonin (0-0.5) ng/ml Urine Color [place] Urine Appearance Cloudy A (Clear) Urine pH 5.5 (4.5-7.5) Ur Specific [place] 1.018 (1.000-1.030) Urine Protein 2+ H (Negative) Urine Glucose (UA) Negative (Negative) Urine Ketones Trace H (Negative) Urine Blood 3+ H (Negative) Urine Nitrite Negative (Negative) Urine Bilirubin Negative (Negative) Urine Urobilinogen Negative (Negative) Ur Leukocyte Esterase 1+ H (Negative) Urine WBC (Auto) 11-20 H (0-5) /hpf Urine RBC (Auto) >20 H (0-2) /hpf U Hyaline Cast (Auto) 11-20 H (0-2) /lpf U Epithel Cells (Auto) 0-2 (0-2) /hpf Urine Bacteria (Auto) None Seen (None Seen) Hyaline Casts Present A (None Presnt) /lpf Urine Comment Adenovirus (PCR) (NotDetected) B. pertussis DNA (PCR) (NotDetected) B.parapertussis DNA PCR (NotDetected) C. pneumoniae DNA (PCR) (NotDetected) Coronavirus OC43 (PCR) (NotDetected) Coronavirus HKU1 (PCR) (NotDetected) Coronavirus 229E (PCR) (NotDetected) SARS-CoV-2 (PCR) (NotDetected) Coronavirus NL63 (PCR) (NotDetected) Human Metapneumovir PCR (NotDetected) Influenza Type A (PCR) (NotDetected) Influenza Type B (PCR) (NotDetected) M. pneumoniae (PCR) (NotDetected) Parainfluenza 1 (PCR) (NotDetected) Parainfluenza 2 (PCR) (NotDetected) Parainfluenza 3 (PCR) (NotDetected) Parainfluenza 4 (PCR) (NotDetected) RSV (PCR) (NotDetected) Entero/Rhino (PCR) (NotDetected) 03/15/25 03/15/25 Range/Units 18:34 18:27 WBC 26.48 H (4.8-10.8) K/ul RBC 4.37 (4.20-5.40) M/uL Hgb 13.6 (12.0-16.0) g/dL POC Hgb 14.6 (12.0-16.0) g/dl Hct 39.5 (37.0-47.0) % POC Hct 43 (37-47) % MCV 90.4 (80.0-100.0) fL MCH 31.1 (25.0-34.0) pg MCHC 34.4 (32.0-36.0) g/dL RDW Std Deviation 56.8 H (36.4-46.3) fL RDW Coeff of Thien 17.3 H (11.5-14.5) % Plt Count 131 (130-400) K/uL MPV 11.2 (9.4-12.4) fL Immature Gran % (Auto) 0.7 % Neut % (Auto) 84.8 % Lymph % (Auto) 7.3 % Ashley % (Auto) 6.6 % Eos % (Auto) 0.3 % Baso % (Auto) 0.3 % Neut # (Auto) 22.41 H (1.40-6.50) K/uL Lymph # (Auto) 1.94 (1.20-3.40) K/uL Ashley # (Auto) 1.76 H (0.11-0.59) K/uL Eos # (Auto) 0.09 (0.00-0.50) K/uL Baso # (Auto) 0.09 (0.00-0.20) K/uL Immature Gran # (Auto) 0.19 (0.01-0.20) K/uL Polychromasia 2+ Echinocytes 2+ PT 15.6 H (9.0-12.0) Seconds INR 1.5 H (0.9-1.1) APTT 29 (21-31) Seconds PTT Ratio 1.1 VBG pH 7.38 (7.36-7.41) VBG pCO2 34 L (38-50) mmHg VBG pO2 39 mmHg VBG HCO3 20 mmol/L VBG O2 Saturation < 60.0 % VBG Base Excess -4.2 mEq/L POC Sodium 138 (135-144) mmol/L Sodium 139 (136-145) mmol/L POC Potassium 4.9 (3.3-5.0) mmol/L Potassium 5.1 (3.5-5.1) mmol/L POC Chloride 108 (101-112) mmol/L Chloride 108 H (98-107) mmol/L Carbon Dioxide 20 L (21-32) mmol/L POC Total CO2 18 L (24-31) mmol/L Anion Gap 11 (3-11) POC Anion Gap 18.0 (16-25) mmol/L POC BUN 37 H (7-18) mg/dl BUN 42 H (6-23) mg/dl Creatinine 2.35 H (0.6-1.2) mg/dl POC Creatinine 2.6 H (0.6-1.3) mg/dl Est Cr Clr Drug Dosing 16.7 ml/min eGFR 19.93 BUN/Creatinine Ratio 17.9 (10-20) Glucose 121 H (70-99(Fasting)) mg/dl POC Glucose (70-99) mg/dl POC Glucose (other) 115 H (70-99) mg/dl Lactate 4.4 H* (0.4-2.0) mmol/L Calcium 10.7 H (8.6-10.3) mg/dl POC Ioniz Calcium Justina 1.31 (1.12-1.32) mmol/l Magnesium 1.7 (1.7-2.4) mg/dl Total Bilirubin 2.0 H (0.2-1.0) mg/dl Direct Bilirubin 0.4 H (0-0.2) mg/dl AST 279 H (13-39) U/L ALT 37 (7-52) U/L Alkaline Phosphatase 980 H (34-104) U/L Troponin I High Sens 30.7 H (0-14) pg/ml Total Protein 5.0 L (6.0-8.3) gm/dl Albumin 3.1 L (3.4-5.0) gm/dl Globulin (2.5-4.0) gm/dl Albumin/Globulin Ratio (0.9-2) Procalcitonin 3.27 H (0-0.5) ng/ml Urine Color Urine Appearance (Clear) Urine pH (4.5-7.5) Ur Specific [place] (1.000-1.030) Urine Protein (Negative) Urine Glucose (UA) (Negative) Urine Ketones (Negative) Urine Blood (Negative) Urine Nitrite (Negative) Urine Bilirubin (Negative) Urine Urobilinogen (Negative) Ur Leukocyte Esterase (Negative) Urine WBC (Auto) (0-5) /hpf Urine RBC (Auto) (0-2) /hpf U Hyaline Cast (Auto) (0-2) /lpf U Epithel Cells (Auto) (0-2) /hpf Urine Bacteria (Auto) (None Seen) Hyaline Casts (None Presnt) /lpf Urine Comment Adenovirus (PCR) Not Detected (NotDetected) B. pertussis DNA (PCR) Not Detected (NotDetected) B.parapertussis DNA PCR Not Detected (NotDetected) C. pneumoniae DNA (PCR) Not Detected (NotDetected) Coronavirus OC43 (PCR) Not Detected (NotDetected) Coronavirus HKU1 (PCR) Not Detected (NotDetected) Coronavirus 229E (PCR) Not Detected (NotDetected) SARS-CoV-2 (PCR) Not Detected (NotDetected) Coronavirus NL63 (PCR) Not Detected (NotDetected) Human Metapneumovir PCR Not Detected (NotDetected) Influenza Type A (PCR) Not Detected (NotDetected) Influenza Type B (PCR) Not Detected (NotDetected) M. pneumoniae (PCR) Not Detected (NotDetected) Parainfluenza 1 (PCR) Not Detected (NotDetected) Parainfluenza 2 (PCR) Not Detected (NotDetected) Parainfluenza 3 (PCR) Not Detected (NotDetected) Parainfluenza 4 (PCR) Not Detected (NotDetected) RSV (PCR) Not Detected (NotDetected) Entero/Rhino (PCR) Not Detected (NotDetected) Diagnostic Findings Chest X-Ray 03/15/25 17:37 Chest radiograph, one view History: Sepsis Comparison: 02/20/2025 Findings/impression: Single AP view of the chest performed. Trace bilateral pleural effusions appear to persist. No focal consolidation. No pneumothorax. The cardiac silhouette appears within normal limits. Prominence of the pulmonary arteries. Right chest wall port with catheter tip at the superior atrial caval junction. Resection changes of the right upper lung. Bilateral shoulder arthroplasty. Electronically signed by Julian Reid 03-15-2025 7:[address] 03/15/25 17:38 Clinical History: Altered mental status Technique: Axial computed tomography images were obtained of the brain without intravenous contrast. Comparison is made to the prior CT dated 02/20/2025 Findings: There is unchanged cerebral atrophy, within expected limits for the patient's age. Areas of decreased attenuation are seen within the periventricular white matter, likely representing chronic small vessel ischemic disease. There is no definite sign of acute or old infarction. No intracranial hemorrhage is evident. No definite mass lesion is seen on this noncontrast examination. There is no midline shift or other form of herniation. No hydrocephalus is seen. No fracture is identified. The orbits and the visualized paranasal sinuses appear unremarkable. The mastoid air cells appear clear. Impression: 1. Cerebral atrophy and chronic small vessel ischemic disease 2. Otherwise unremarkable noncontrast CT of the brain Electronically signed by Oneal Juan 03-15-2025 7:51 PM Abdomen/Pelvis CT 03/15/25 18:58 CT of the abdomen pelvis without contrast Technique: Noncontrast axial images of the abdomen pelvis. Coronal and sagittal reformatted images made available for review Comparison made to prior exam dated 02/21/2024 Findings: Atelectasis. Right lower lobe small right pleural effusion. Coronary artery calcifications. Right hilar calcified lymph nodes incompletely evaluated on this exam. Although evaluation of solid abdominal organs is limited secondary to lack of IV contrast there appear to be innumerable intrahepatic masses concerning for metastatic disease. Evaluation of the uses precluded given the lack of IV contrast. Grossly they appear unchanged from prior study. No hydroureteronephrosis. Cholelithiasis without evidence of acute cholecystitis. HepatomegalyTrace free fluid within the dependent pelvis. Nonobstructing bilateral intrarenal calculi. Remaining solid abdominal organs are grossly unremarkable on this unenhanced CT scan. Postoperative changes ORIF left femoral fracture. Bone windows demonstrate innumerable osseous sclerotic metastatic lesions. No acute fractures or dislocation identified on this exam. Impression CT of the abdomen pelvis grossly negative for acute intraabdominal pathology Grossly stable extensive extensive intrahepatic metastatic disease incompletely evaluated on this exam Extensive osseous metastatic disease stable and compared with prior study. Electronically signed by Edward Griffin 03-15-2025 8:39 PM PG Care Time/CCT Total # of Minutes Spent Total Time Spent with Patient: Total time spent is greater than 50% in coordination of care (as documented) at patient's floor/unit and/or counseling patient: I spent 110 minutes overall addressing this case: 20 min in medical data review/discussion with referring provider(s) and/or preparation for the visit incl d/w teams, nursing 5, she was unable to participate min in direct interaction with the patient/exam 45 min in Advance Care Planning/Goals of Care discussions as detailed above in note (must be >16min) 15 min in subsequent review and synthesis of assessment and plan 25 min communicating with other providers regarding the patient's case: nursing, primary team, cm, [facility] onc/Dr Linton Advanced Care Planning [id number] Advanced Care Planning Additional 30 [place] [address] IN/OBS CONSULT LVL 4,60M (25 - SIGNIFICANT, SEPARATELY IDENTIFIABLE ) Patient Type New Medical Decision Making High Complexity Diagnoses Weakness generalized R53.1 Anxiety and depression F41.9; F32.A Advanced care planning/counseling discussion Z71.89 Palliative care by specialist Z51.5 Malignant pleural effusion J91.0 Metastatic lung cancer (metastasis from lung to other site) C34.90 Non-small cell lung cancer C34.90 Additional Codes Advanced Care Planning - 79333 Advanced Care Planning Additional 30 Min: 83613 Advanced Care Planning Additional 30 Min ([id number]) Comment [id number], [id number]
[2025-03-16] MEDS: CEFEPIME 1000MG 1,000 MG/10 ML SYR IV SCH (13:32)
[2025-03-16] MEDS: SODIUM CHLORIDE 0.9% 500 ML IV SCH (17:00)
[2025-03-16] MEDS: PROMETHAZINE 6.25 MG/50.25 ML BAG IV PRN (20:18)
[2025-03-17 06:28] LABS: Hematocrit (blood only) 33.0 % (37.0-47.0); Hemoglobin 11.5 g/dL (12.0-16.0); Mean Corpuscular Hemoglobin 31.1 pg (25.0-34.0); Mean Corpuscular Volume 89.2 fL (80.0-100.0); RDW Standard Deviation 56.9 fL (36.4-46.3); Red Blood Count 3.70 M/uL (4.20-5.40); White Blood Count 17.37 K/ul (4.8-10.8)
[2025-03-17 06:46] LABS: Anion Gap 5.0 (3-11); Blood Urea Nitrogen 36.0 mg/dl (6-23); Calcium 8.3 mg/dl (8.6-10.3); Carbon Dioxide 20.0 mmol/L (21-32); Chloride 113.0 mmol/L (98-107); Creatinine Clr Calc Pharmacy 28.6 ml/min; Glucose 63.0 mg/dl (70-99(Fasting)); Potassium 3.9 mmol/L (3.5-5.1); Sodium 138.0 mmol/L (136-145)
[2025-03-17 07:08] LABS: Platelet Count 67 K/uL (130-400)
[2025-03-17] MEDS: ACETAMINOPHEN 500 MG TAB PO PRN (08:13)
--- NOTE | 2025-03-17 09:39 | Electrocardiogram Report ---
Test Reason : Blood Pressure : */* mmHG Vent. Rate : 89 BPM Atrial Rate : 89 BPM P-R Int : 132 ms QRS Dur : 82 ms QT Int : 378 ms P-R-T Axes : 39 -29 -35 degrees QTcB Int : 459 ms Normal sinus rhythm Low voltage QRS Cannot rule out Anterior infarct (cited on or before 07-Oct-2023) T wave abnormality, consider lateral ischemia Abnormal ECG When compared with ECG of 21-Feb-2025 07:57, No significant change Confirmed by Gerson Olmedo ([id number]) on 03/17/2025 9:38:47 AM Referred By: Kush Linton Confirmed By: Gerson Olmedo
--- NOTE | 2025-03-17 10:22 | Hospitalist Progress Note ---
Date of Service March 17, 2025 Assessment & Plan (1) Encephalopathy: Plan: 84F hypertension, paroxysmal AFib/PE on Eliquis, NAYA on CPAP, hx BRCA gene mutation, recurrent NSCLC status post surgery/chemotherapy, breast cancer, L sp surgery and chemotherapy, uterine cancer sp surgery/chemotherapy, acoustic neuroma as per records, skin cancer, DM2 diet-controlled, CKD3 hypercalcemia of malignancy, mood disorder presents with AMS #Sepsis -Mild sepsis with hypotension, tachycardia, leukocytosis, elevated lactate and AMS -Likely from UTI. no other source of infection identified -Sepsis resolving -Urine and blood culture reviewed, NGTD Plan -Continue cefepime through the weekend until she goes on home hospice thursday -Follow urine and blood cultures #ALCIRA on CKD3 -Pre renal from sepsis -Improving with IVF Plan -Eating better. DC IVF -Avoid nephrotoxic agents if possible -Hold further labs as she will be on hospice thursday #C discussion -D/w Son on phone 03/16, he wishes to have a family meeting with palliative care to discuss hospice -DNR DNI for now 03/17- D/w son Keith on phone again today. He and his brother Jose are ok with hospice. would prefer it be on thursday so they can get the house ready. CM is coordinating. D/w patient as well today. she expressed that her most important thing in her life is to be in the comfort of her own home. she does not wish to have further hospitalizations, tests or bloodwork. She remains DNR DNI. #Elevated troponin -Type II demand NSTEMI secondary to sepsis -No chest pain -Low suspicion for ACS #Metabolic encephalopathy -Secondary to sepsis from UTI + ALCIRA on CKD3 -Resolving -Treat underlying issues #Pleural effusions -Trace stable effusions on CXR -On 2L NC but was not hypoxic -Wean off O2 #NSCLC -Follows with oncology -Metastatic #pAFib -Continue eliquis toprol #History of PE -Elivictoria I spent a total of 75 minutes coordinating, documenting, and providing care for this patient excluding time spent in the performance of separately billed services. This included personally reviewing all current laboratories and imaging studies, medical reconciliation, outpatient chart review and discussion with specialists Admission and Anticipated Discharge Date Admission Date: March 15, 2025 Subjective Feeling much better this AM. she denies any specific complaints to author. Patient denies F/C, CP, palpitations, SOB, dyspnea, abd pain, N/V/D. D/w son jose on phone. Physical Exam Physical Exam: Vitals and labs reviewed General: frail, elderly chronically ill appearing NAD HEENT: EOMI, PERRLA Neck: Supple Cardiac: RRR no rubs gallops or murmurs Lungs: CTA no rhonchi wheezing or rales Abd: S NT ND BS positive : Deffered MSK: Full ROM. No obvious deformities Ext: No Edema cyanosis Skin: Warm, Dry Neuro: AOx3 No focal deficits. Psych: Normal Mood Results & Data Results & Data Vital Signs (Past 12 Hours) Vital Signs Temp Pulse Pulse Resp BP Pulse Ox O2 Del Method 03/17/25 09:01 101 H 03/17/25 07:57 37.1 C 107 H 18 148/76 H 95 Nasal Cannula 03/17/25 04:00 36.8 C 98 H 18 149/82 H 97 Nasal Cannula 03/16/25 23:11 36.5 C 91 H 18 145/84 H 97 Nasal Cannula 03/16/25 22:25 Nasal Cannula O2 Flow Rate 03/17/25 09:01 03/17/25 07:57 2 03/17/25 04:00 2 03/16/25 23:11 2 03/16/25 22:25 2 Laboratory Results Abnormal lab results 03/16/25 03/17/25 Range/Units 11:20 06:05 WBC 17.37 H (4.8-10.8) K/ul RBC 3.70 L (4.20-5.40) M/uL Hgb 11.5 L (12.0-16.0) g/dL Hct 33.0 L (37.0-47.0) % RDW Std Deviation 56.9 H (36.4-46.3) fL RDW Coeff of Thien 17.4 H (11.5-14.5) % Plt Count 67 L (130-400) K/uL Platelet Estimate Decreased L (Normal) Chloride 113 H (98-107) mmol/L Carbon Dioxide 20 L (21-32) mmol/L BUN 36 H (6-23) mg/dl Creatinine 1.40 H D (0.6-1.2) mg/dl BUN/Creatinine Ratio 25.7 H (10-20) Glucose 63 L (70-99(Fasting)) mg/dl POC Glucose 101 H (70-99) mg/dl Calcium 8.3 L (8.6-10.3) mg/dl
--- NOTE | 2025-03-17 10:53 | Palliative Care Progress Note ---
Date of Service March 17, 2025 Assessment & Plan (1) Weakness generalized: Plan DNR/DNI continue all other life prolonging treatments at this time. Continue to optimize health with likely discharge to home with hospice on Thursday. Admission and Anticipated Discharge Date Admission Date: March 15, 2025 Subjective Assessed pt at bedside, she was awake and alert, oriented to person and place only. She was pleasantly communicative and denied any discomfort. VSS. NAEON. no visitors present. Review of Systems Review of Systems: All systems reviewed & are unremarkable except as noted in Subjective Physical Exam Constitutional: WD/WN, vitals as above Eyes: PERRL, conjunctivae normal, anicteric sclerae Neck: trachea midline, no thyromegaly Respiratory: normal respiratory effort, lungs clear to auscultation Gastrointestinal (Abdomen): normal bowel sounds, soft, nontender, no hepatosplenomegaly Skin: no rashes, warm and dry + pallor Neurologic: PERRL, EOMI, accommodation nl, no face palsy, no dysarthria oriented to person/place only. Results & Data Vital Signs (Past 12 Hours) Vital Signs Temp Pulse Pulse Resp BP Pulse Ox O2 Del Method 03/17/25 09:01 101 H 03/17/25 07:57 37.1 C 107 H 18 148/76 H 95 Nasal Cannula 03/17/25 04:00 36.8 C 98 H 18 149/82 H 97 Nasal Cannula 03/16/25 23:11 36.5 C 91 H 18 145/84 H 97 Nasal Cannula O2 Flow Rate 03/17/25 09:01 03/17/25 07:57 2 03/17/25 04:00 2 03/16/25 23:11 2 Laboratory Results Abnormal lab results 03/16/25 03/17/25 Range/Units 11:20 06:05 WBC 17.37 H (4.8-10.8) K/ul RBC 3.70 L (4.20-5.40) M/uL Hgb 11.5 L (12.0-16.0) g/dL Hct 33.0 L (37.0-47.0) % RDW Std Deviation 56.9 H (36.4-46.3) fL RDW Coeff of Thien 17.4 H (11.5-14.5) % Plt Count 67 L (130-400) K/uL Platelet Estimate Decreased L (Normal) Chloride 113 H (98-107) mmol/L Carbon Dioxide 20 L (21-32) mmol/L BUN 36 H (6-23) mg/dl Creatinine 1.40 H D (0.6-1.2) mg/dl BUN/Creatinine Ratio 25.7 H (10-20) Glucose 63 L (70-99(Fasting)) mg/dl POC Glucose 101 H (70-99) mg/dl Calcium 8.3 L (8.6-10.3) mg/dl Diagnostic Findings Chest X-Ray 03/15/25 17:37 Chest radiograph, one view History: Sepsis Comparison: 02/20/2025 Findings/impression: Single AP view of the chest performed. Trace bilateral pleural effusions appear to persist. No focal consolidation. No pneumothorax. The cardiac silhouette appears within normal limits. Prominence of the pulmonary arteries. Right chest wall port with catheter tip at the superior atrial caval junction. Resection changes of the right upper lung. Bilateral shoulder arthroplasty. Electronically signed by Julian Reid 03-15-2025 7:[address] 03/15/25 17:38 Clinical History: Altered mental status Technique: Axial computed tomography images were obtained of the brain without intravenous contrast. Comparison is made to the prior CT dated 02/20/2025 Findings: There is unchanged cerebral atrophy, within expected limits for the patient's age. Areas of decreased attenuation are seen within the periventricular white matter, likely representing chronic small vessel ischemic disease. There is no definite sign of acute or old infarction. No intracranial hemorrhage is evident. No definite mass lesion is seen on this noncontrast examination. There is no midline shift or other form of herniation. No hydrocephalus is seen. No fracture is identified. The orbits and the visualized paranasal sinuses appear unremarkable. The mastoid air cells appear clear. Impression: 1. Cerebral atrophy and chronic small vessel ischemic disease 2. Otherwise unremarkable noncontrast CT of the brain Electronically signed by Oneal Juan 03-15-2025 7:51 PM Abdomen/Pelvis CT 03/15/25 18:58 CT of the abdomen pelvis without contrast Technique: Noncontrast axial images of the abdomen pelvis. Coronal and sagittal reformatted images made available for review Comparison made to prior exam dated 02/21/2024 Findings: Atelectasis. Right lower lobe small right pleural effusion. Coronary artery calcifications. Right hilar calcified lymph nodes incompletely evaluated on this exam. Although evaluation of solid abdominal organs is limited secondary to lack of IV contrast there appear to be innumerable intrahepatic masses concerning for metastatic disease. Evaluation of the uses precluded given the lack of IV contrast. Grossly they appear unchanged from prior study. No hydroureteronephrosis. Cholelithiasis without evidence of acute cholecystitis. HepatomegalyTrace free fluid within the dependent pelvis. Nonobstructing bilateral intrarenal calculi. Remaining solid abdominal organs are grossly unremarkable on this unenhanced CT scan. Postoperative changes ORIF left femoral fracture. Bone windows demonstrate innumerable osseous sclerotic metastatic lesions. No acute fractures or dislocation identified on this exam. Impression CT of the abdomen pelvis grossly negative for acute intraabdominal pathology Grossly stable extensive extensive intrahepatic metastatic disease incompletely evaluated on this exam Extensive osseous metastatic disease stable and compared with prior study. Electronically signed by Edward Griffin 03-15-2025 8:39 PM Medications Administered Current Inpatient Medications Acetaminophen (Acetaminophen 500 Mg Tab) 500 mg PO Q6H PRN PRN Reason: fever/pain Stop: 04/14/25 22:37 Last Admin: 03/17/25 08:13 Dose: 500 mg Apixaban (Apixaban 2.5 Mg Tab) 2.5 mg PO BID BERNARDA Stop: 04/14/25 22:44 Last Admin: 03/17/25 08:14 Dose: 2.5 mg Atorvastatin Calcium (Atorvastatin 20 Mg Tab) 20 mg PO QAM BERNARDA Stop: 04/15/25 08:59 Last Admin: 03/17/25 08:13 Dose: 20 mg Citalopram Hydrobromide (Citalopram 20 Mg Tab) 20 mg PO QAM BERNARDA Stop: 04/15/25 08:59 Last Admin: 03/17/25 08:13 Dose: 20 mg Dextrose (Dextrose 50% 50 Ml Syringe) 25 - 50 ml IV UD PRN; Protocol PRN Reason: Hypoglycemia Protocol Stop: 04/14/25 23:55 Famotidine (Famotidine 20 Mg Tab) 20 mg PO BID PRN PRN Reason: Heartburn Stop: 04/14/25 22:33 Glucagon (Glucagon For Inj 1 Mg Vial) 1 mg SQ UD PRN; Protocol PRN Reason: Hypoglycemia Protocol Stop: 04/14/25 23:55 Glucose (Glucose 40% Gel 15 Gm Tube) 15 - 30 gm PO UD PRN; Protocol PRN Reason: Hypoglycemia Protocol Stop: 04/14/25 23:55 Glucose (Glucose 10 Tab/Tube) 4 - 8 tab PO UD PRN; Protocol PRN Reason: Hypoglycemia Protocol Stop: 04/14/25 23:55 Heparin Sodium (Porcine) (Heparin 100 Unit/Ml 5ml Flush) 5 ml FLUSH PRN PRN PRN Reason: Flush Stop: 04/15/25 05:19 Promethazine HCl (Phenergan) 6.25 mg in 50.25 mls @ 201 mls/hr IV Q6H PRN PRN Reason: Nausea And Vomiting Stop: 04/14/25 22:37 Last Infusion: 03/16/25 21:10 Dose: Infused Cefepime HCl (Maxipime 2000mg) 1,000 mg in 10 mls @ 5 mls/min IV Q12H BERNARDA; Protocol Stop: 03/26/25 11:59 Last Admin: 03/17/25 00:59 Dose: 5 mls/min Insulin Aspart (Insulin Aspart Per Unit Charge) 0 units SC ACHS BERNARDA Stop: 04/14/25 23:55 Last Admin: 03/17/25 09:22 Dose: Not Given Metoprolol Succinate (Metoprolol Succ 25mg Ext Rel Tab) 25 mg PO QAM BERNARDA Stop: 04/15/25 08:59 Last Admin: 03/17/25 08:13 Dose: 25 mg Miscellaneous (Carbohydrates For Hypoglycemia ) 15 - 30 gm PO UD PRN PRN Reason: Hypoglycemia Protocol Stop: 04/14/25 23:55 PG Care Time/CCT Total # of Minutes Spent Total Time Spent with Patient: Total time spent is greater than 50% in coordination of care (as documented) at patient's floor/unit and/or counseling patient: Coding [place] [address] SUB INP/OBS CARE 2/35MIN Patient Type Established History Problem Focused Exam Problem Focused Medical Decision Making Low Complexity Diagnoses Weakness generalized R53.1
[2025-03-18] MEDS: cefTRIAXone SODIUM 2,000 MG/50 ML BAG IV SCH (08:16)
--- NOTE | 2025-03-18 09:39 | Hospitalist Progress Note ---
Date of Service March 18, 2025 Assessment & Plan (1) Encephalopathy: Plan: 84F hypertension, paroxysmal AFib/PE on Eliquis, NAYA on CPAP, hx BRCA gene mutation, recurrent NSCLC status post surgery/chemotherapy, breast cancer, L sp surgery and chemotherapy, uterine cancer sp surgery/chemotherapy, acoustic neuroma as per records, skin cancer, DM2 diet-controlled, CKD3 hypercalcemia of malignancy, mood disorder presents with AMS #Sepsis -Mild sepsis with hypotension, tachycardia, leukocytosis, elevated lactate and AMS -Likely from UTI. no other source of infection identified -Sepsis resolving -Urine and blood culture reviewed, NGTD -Clinically improving -Urine cx remains negative however clinically she has UTI and sepsis from UTI Plan -Deescalate to CTX -Follow urine and blood cultures #ALCIRA on CKD3 -Pre renal from sepsis -Improving with IVF Plan -Avoid nephrotoxic agents if possible -Hold further labs as she will be on hospice thursday #C discussion -D/w Son on phone 03/16, he wishes to have a family meeting with palliative care to discuss hospice -DNR DNI for now 03/17- D/w son Keith on phone again today. He and his brother Hugo are ok with hospice. would prefer it be on thursday so they can get the house ready. CM is coordinating. D/w patient as well today. she expressed that her most important thing in her life is to be in the comfort of her own home. she does not wish to have further hospitalizations, tests or bloodwork. She remains DNR DNI. #Elevated troponin -Type II demand NSTEMI secondary to sepsis -No chest pain -Low suspicion for ACS #Metabolic encephalopathy -Secondary to sepsis from UTI + ALCIRA on CKD3 -Resolving -Treat underlying issues #Pleural effusions -Trace stable effusions on CXR -On 2L NC but was not hypoxic -Wean off O2 #NSCLC -Follows with oncology -Metastatic #pAFib -Continue eliquis toprol #History of PE -Eliquis I spent a total of 55 minutes coordinating, documenting, and providing care for this patient excluding time spent in the performance of separately billed services. This included personally reviewing all current laboratories and imaging studies, medical reconciliation, outpatient chart review and discussion with specialists Admission and Anticipated Discharge Date Admission Date: March 15, 2025 Subjective Feeling well this AM she has no complaints other than L shoulder pain which is mild and chronic. Patient denies F/C, CP, palpitations, SOB, dyspnea, abd pain, N/V/D Physical Exam Physical Exam: Vitals and labs reviewed General: frail, elderly chronically ill appearing NAD HEENT: EOMI, PERRLA Neck: Supple Cardiac: RRR no rubs gallops or murmurs Lungs: CTA no rhonchi wheezing or rales Abd: S NT ND BS positive : Deffered MSK: Full ROM. No obvious deformities Ext: No Edema cyanosis Skin: Warm, Dry Neuro: AOx3 No focal deficits. Psych: Normal Mood Results & Data Results & Data Vital Signs (Past 12 Hours) Vital Signs Temp Pulse Pulse Resp BP Pulse Ox O2 Del Method 03/18/25 08:17 Nasal Cannula 03/18/25 08:15 36.7 C 96 H 16 146/82 H 97 Nasal Cannula 03/18/25 06:49 94 H 03/18/25 03:55 37.0 C 97 H 20 122/72 98 Room Air 03/18/25 00:49 36.8 C 64 18 135/92 92 Nasal Cannula 03/17/25 22:16 88 O2 Flow Rate 03/18/25 08:17 2 03/18/25 08:15 2 03/18/25 06:49 03/18/25 03:55 03/18/25 00:49 2 03/17/25 22:16
--- NOTE | 2025-03-19 10:01 | Hospitalist Progress Note ---
Date of Service March 19, 2025 Assessment & Plan (1) Encephalopathy: Plan: 84F hypertension, paroxysmal AFib/PE on Eliquis, NAYA on CPAP, hx BRCA gene mutation, recurrent NSCLC status post surgery/chemotherapy, breast cancer, L sp surgery and chemotherapy, uterine cancer sp surgery/chemotherapy, acoustic neuroma as per records, skin cancer, DM2 diet-controlled, CKD3 hypercalcemia of malignancy, mood disorder presents with AMS #Sepsis -Mild sepsis with hypotension, tachycardia, leukocytosis, elevated lactate and AMS -Likely from UTI. no other source of infection identified -Sepsis resolving -Urine and blood culture reviewed, NGTD -Clinically improving -Urine cx remains negative however clinically she has UTI and sepsis from UTI Plan -Continue CTX -Follow urine and blood cultures -Switch to cefdinir upon discharge -Anticipate DC home on hospice tomorrow if everything can be set up #ALCIRA on CKD3 -Pre renal from sepsis -Improving with IVF Plan -Avoid nephrotoxic agents if possible -Hold further labs as she will be on hospice thursday #GOC discussion -D/w Son on phone 03/16, he wishes to have a family meeting with palliative care to discuss hospice -DNR DNI for now 03/17- D/w son Keith on phone again today. He and his brother Hugo are ok with hospice. would prefer it be on thursday so they can get the house ready. CM is coordinating. D/w patient as well today. she expressed that her most important thing in her life is to be in the comfort of her own home. she does not wish to have further hospitalizations, tests or bloodwork. She remains DNR DNI. #Elevated troponin -Type II demand NSTEMI secondary to sepsis -No chest pain -Low suspicion for ACS #Metabolic encephalopathy -Secondary to sepsis from UTI + ALCIRA on CKD3 -Resolving -Treat underlying issues #Pleural effusions -Trace stable effusions on CXR -On 2L NC but was not hypoxic -Wean off O2 #NSCLC -Follows with oncology -Metastatic #pAFib -Continue eliquis toprol #History of PE -Eliquis I spent a total of 42 minutes coordinating, documenting, and providing care for this patient excluding time spent in the performance of separately billed services. This included personally reviewing all current laboratories and imaging studies, medical reconciliation, outpatient chart review and discussion with specialists Admission and Anticipated Discharge Date Admission Date: March 15, 2025 Subjective Feeling well this AM she has no complaints other than L shoulder pain which is mild and chronic. Patient denies F/C, CP, palpitations, SOB, dyspnea, abd pain, N/V/D. she had a normal bowel movement two nights ago. passing gas eating without issue. Physical Exam Physical Exam: Vitals and labs reviewed General: frail, elderly chronically ill appearing NAD HEENT: EOMI, PERRLA Neck: Supple Cardiac: RRR no rubs gallops or murmurs Lungs: CTA no rhonchi wheezing or rales Abd: S NT ND BS positive : Deffered MSK: Full ROM. No obvious deformities Ext: No Edema cyanosis Skin: Warm, Dry Neuro: AOx3 No focal deficits. Psych: Normal Mood Results & Data Results & Data Vital Signs (Past 12 Hours) Vital Signs Temp Pulse Pulse Resp BP Pulse Ox O2 Del Method 03/19/25 08:00 37.0 C 100 H 17 153/85 H 97 Nasal Cannula 03/19/25 07:32 Nasal Cannula 03/19/25 06:46 94 H 03/19/25 04:01 36.9 C 98 H 20 142/71 H 97 Room Air 03/19/25 00:14 36.9 C 97 H 20 121/79 98 Nasal Cannula O2 Flow Rate 03/19/25 08:00 2 03/19/25 07:32 2 03/19/25 06:46 03/19/25 04:01 03/19/25 00:14 2
[2025-03-19] MEDS: CARBOHYDRATES FOR HYPOGLYCEMIA PO PRN (17:23)
[2025-03-19] MEDS: HEPARIN 100 UNIT/ML 5ML FLUSH FLUSH PRN (20:55)
[2025-03-20 07:39] VITALS: RESP 16
[2025-03-20 11:16] VITALS: BP 122/81; PULSE 95; TEMP 97.3; O2SAT 97
--- NOTE | 2025-03-20 12:42 | Discharge Summary ---
Discharge Summary Date of Service March 20, 2025 Principal Dx & Hospital Course #1 = Principal Diagnosis (1) Encephalopathy: 84F hypertension, paroxysmal AFib/PE on Eliquis, NAYA on CPAP, hx BRCA gene mutation, recurrent NSCLC status post surgery/chemotherapy, breast cancer, L sp surgery and chemotherapy, uterine cancer sp surgery/chemotherapy, acoustic neuroma as per records, skin cancer, DM2 diet-controlled, CKD3 hypercalcemia of malignancy, mood disorder presents with AMS. She was treated for Sepsis, likely secondary to UTI although urine cx did not grow any pathogenic bacteria. she clinically improved with IV abx and IVF. she completed her course of abx today. Palliative care was consulted and patient/family decided on home hospice. hospice services will be at her house today. vitals stable on day of discharge. #Sepsis -Mild sepsis with hypotension, tachycardia, leukocytosis, elevated lactate and AMS -Likely from UTI. no other source of infection identified -Sepsis resolving -Urine and blood culture reviewed, NGTD -Clinically improving -Urine cx remains negative however clinically she has UTI and sepsis from UTI #ALCIRA on CKD3 -Pre renal from sepsis -Improving with IVF Plan -Avoid nephrotoxic agents if possible -Hold further labs as she will be on hospice thursday #[facility] discussion -D/w Son on phone 03/16, he wishes to have a family meeting with palliative care to discuss hospice -DNR DNI for now 03/17- D/w son Keith on phone again today. He and his brother Hugo are ok with hospice. would prefer it be on thursday so they can get the house ready. CM is coordinating. D/w patient as well today. she expressed that her most important thing in her life is to be in the comfort of her own home. she does not wish to have further hospitalizations, tests or bloodwork. She remains DNR DNI. #Elevated troponin -Type II demand NSTEMI secondary to sepsis -No chest pain -Low suspicion for ACS #Metabolic encephalopathy -Secondary to sepsis from UTI + ALCIRA on CKD3 -Resolving -Treat underlying issues #Pleural effusions -Trace stable effusions on CXR -On 2L NC but was not hypoxic -Wean off O2 #NSCLC -Follows with oncology -Metastatic #pAFib -Continue eliquis toprol #History of PE -Eliquis I spent a total of 39 minutes coordinating, documenting, and providing care for this patient excluding time spent in the performance of separately billed services. This included personally reviewing all current laboratories and imaging studies, medical reconciliation, outpatient chart review and discussion with specialists Notes For Next Care Provider Medication Changes From Visit Toprol dose decreased to 25mg daily Norvasc DC She can discuss with her PCP and hospice team whether she should continue eliquis at home. Admission HPI Per Admitting Provider History obtained from patient, family, and records. History somewhat limited from patient due to confusion. Medical history significant for hypertension, paroxysmal AFib/PE on Eliquis, NAYA on CPAP, hx BRCA gene mutation, recurrent NSCLC status post surgery/chemotherapy, breast cancer, L sp surgery and chemotherapy, uterine cancer sp surgery/chemotherapy, acoustic neuroma as per records, skin cancer, DM2 diet-controlled, CRI (baseline creatinine 1.2), hypercalcemia of malignancy, mood disorder. Recent confinement last month for ARF on CKD, hypercalcemia secondary to metastatic recurrent lung cancer. Recent ER visit 2 weeks ago for confusion symptoms attributed to possible UTI. Patient elected to be discharged on outpatient cefdinir course. No growth on final urine CS. Increasing weakness over the last few weeks as per family. Poor appetite. Patient seen at [facility] oncologist office last week. Osimertinib cancer medication stopped due to disease progression. Consideration for comfort care discussed with patient/family if with future disease progression as per provider note. Patient started on Bactrim prescription for possible UTI few days ago. No growth on outpatient urine CS collected yesterday. Patient increasingly weak. Denies headache, chest pain, SOB, abdominal pain. Watery diarrhea symptoms. Oncologist's office recommended ED evaluation given worsening symptoms. Lowest SBP of 80s documented at the ER. IV cefepime administered at the ER. MEDICAL HISTORY: As above. SURGERIES: She has had A-port placement, hysterectomy, tubal ligation, tonsillectomy, adenoidectomy, carpal tunnel surgery, knee surgery, urologic procedures, eye surgery, shoulder surgery, modified radical mastectomy left, thoracoscopy/lung surgery, cataract surgery, femoral fracture surgery FAMILY HISTORY: There is a family history of breast cancer, colon cancer, dementia. PERSONAL AND SOCIAL HISTORY: Nonsmoker, no chronic intake of alcoholic beverages. 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 Discharge Exam Vitals and labs reviewed General: frail, elderly chronically ill appearing NAD HEENT: EOMI, PERRLA Neck: Supple Cardiac: RRR no rubs gallops or murmurs Lungs: CTA no rhonchi wheezing or rales Abd: S NT ND BS positive : Steven MSK: Full ROM. No obvious deformities Ext: No Edema cyanosis Skin: Warm, Dry Neuro: AOx3 No focal deficits. Psych: Normal Mood Updated Medication List Medication Instructions Recorded Confirmed Type albuterol sulfate 90 mcg/actuation 2 puff inhalation QID PRN SOB 06/23/18 03/15/25 History aerosol inhaler amlodipine 10 mg tablet 10 mg PO QAM 06/23/18 03/15/25 History atorvastatin 20 mg tablet 20 mg PO QAM 06/23/18 03/15/25 History tizanidine 4 mg capsule 4 mg PO TID PRN MUSCLE SPASMS 06/23/18 03/15/25 History fluticasone propionate 50 2 spray intranasal QAM Congestion 12/19/19 03/15/25 History mcg/actuation nasal spray,suspension ondansetron HCl 8 mg tablet 8 mg PO Q8H PRN Nausea 12/19/19 03/15/25 History prochlorperazine maleate 10 mg 10 mg PO Q6H PRN Nausea 12/19/19 03/15/25 History tablet apixaban 5 mg tablet (Eliquis) 5 mg PO BID 12/30/21 03/15/25 History famotidine 20 mg tablet (Pepcid) 20 mg PO BID PRN Heartburn 12/30/21 03/15/25 History amoxicillin 500 mg capsule 2,000 mg PO DIRECTED PRN 1 HR 09/27/23 03/15/25 History PRIOR TO DENTAL PROCEDURES cholecalciferol (vitamin D3) 50 2,000 unit PO DAILY 09/27/23 03/15/25 History mcg (2,000 unit) capsule (Vitamin D3) citalopram 20 mg tablet 20 mg PO QAM 03/15/25 03/15/25 History lorazepam 0.5 mg tablet 0.5 mg PO BID PRN Anxiety 03/15/25 03/15/25 History metoprolol succinate 100 mg 100 mg PO QAM 03/15/25 03/15/25 History tablet,extended release 24 hr mirtazapine 15 mg tablet 15 mg PO HS 03/15/25 03/15/25 History potassium chloride 20 mEq/15 mL 10 meq PO BID 03/15/25 03/15/25 History oral liquid sulfamethoxazole 800 1 tab PO BID 03/15/25 03/15/25 History mg-trimethoprim 160 mg tablet metoprolol succinate 25 mg 25 mg PO QAM 30 days #30 tabs 03/20/25 Rx tablet,extended release 24 hr Hospital Stay Data Consultations 03/15/25 21:33 ED Decision to Admit Stat 03/15/25 22:35 Consult Palliative Care Routine Diagnostic Imagining Performed 03/15/25 17:38 CT head/brain wo con Stat 03/15/25 18:58 CT abd pelvis wo con Stat Pending Results Patient Have Any Pending Studies at Discharge: No Discharge Instructions Given to Patient (Per Discharging Provider) You completed your antibiotic during your hospital stay. The hospice agency will handle most of your needs for comfort at home. Total Time Total Time Spent Total Time Spent (In Minutes): 39
--- NOTE | 2025-03-20 13:08 | Palliative Care Progress Note ---
Date of Service March 20, 2025 Assessment & Plan (1) Weakness generalized: Plan DNR/DNI continue all other life prolonging treatments at this time. Continue to optimize health -plan in place for discharge to home with hospice this afternoon. We will sign off on this patient as goals of care are clearly established and there are no uncontrolloed symptoms requiring palliation. Thank you for including Palliative Care in the management of this patient. Please call with any questions or concerns regarding this consultation. Admission and Anticipated Discharge Date Admission Date: March 15, 2025 Subjective Assessed pt at bedside, she was awake and alert, oriented to person and place only. She was pleasantly communicative and denied any discomfort. VSS. NAEON. no visitors present. Physical Exam Constitutional: WD/WN, vitals as above Eyes: PERRL, conjunctivae normal, anicteric sclerae Neck: trachea midline, no thyromegaly Respiratory: normal respiratory effort, lungs clear to auscultation Gastrointestinal (Abdomen): normal bowel sounds, soft, nontender, no hepatosplenomegaly Skin: no rashes, warm and dry + pallor Neurologic: PERRL, EOMI, accommodation nl, no face palsy, no dysarthria Results & Data Vital Signs (Past 12 Hours) Vital Signs Temp Pulse Pulse Resp BP Pulse Ox O2 Del Method 03/20/25 11:16 36.3 C L 95 H 16 122/81 97 Nasal Cannula 03/20/25 08:00 Nasal Cannula 03/20/25 07:39 36.5 C 97 H 16 135/82 98 Nasal Cannula 03/20/25 06:45 90 03/20/25 03:48 36.4 C L 91 H 20 147/88 H 99 Nasal Cannula O2 Flow Rate 03/20/25 11:16 2 03/20/25 08:00 2 03/20/25 07:39 3 03/20/25 06:45 03/20/25 03:48 2 Laboratory Results No further labs or diagnostics in concert with comfort directed care. Diagnostic Findings No further labs or diagnostics in concert with comfort directed care. Medications Administered Current Inpatient Medications Acetaminophen (Acetaminophen 500 Mg Tab) 500 mg PO Q6H PRN PRN Reason: fever/pain Stop: 04/14/25 22:37 Last Admin: 03/18/25 08:30 Dose: 500 mg Apixaban (Apixaban 2.5 Mg Tab) 2.5 mg PO BID [facility] Stop: 04/14/25 22:44 Last Admin: 03/20/25 08:00 Dose: 2.5 mg Atorvastatin Calcium (Atorvastatin 20 Mg Tab) 20 mg PO QAM [facility] Stop: 04/15/25 08:59 Last Admin: 03/20/25 08:00 Dose: 20 mg Citalopram Hydrobromide (Citalopram 20 Mg Tab) 20 mg PO QAM [facility] Stop: 04/15/25 08:59 Last Admin: 03/20/25 08:00 Dose: 20 mg Dextrose (Dextrose 50% 50 Ml Syringe) 25 - 50 ml IV UD PRN; Protocol PRN Reason: Hypoglycemia Protocol Stop: 04/14/25 23:55 Famotidine (Famotidine 20 Mg Tab) 20 mg PO BID PRN PRN Reason: Heartburn Stop: 04/14/25 22:33 Glucagon (Glucagon For Inj 1 Mg Vial) 1 mg SQ UD PRN; Protocol PRN Reason: Hypoglycemia Protocol Stop: 04/14/25 23:55 Glucose (Glucose 40% Gel 15 Gm Tube) 15 - 30 gm PO UD PRN; Protocol PRN Reason: Hypoglycemia Protocol Stop: 04/14/25 23:55 Glucose (Glucose 10 Tab/Tube) 4 - 8 tab PO UD PRN; Protocol PRN Reason: Hypoglycemia Protocol Stop: 04/14/25 23:55 Heparin Sodium (Porcine) (Heparin 100 Unit/Ml 5ml Flush) 5 ml FLUSH PRN PRN PRN Reason: Flush Stop: 04/15/25 05:19 Last Admin: 03/20/25 12:55 Dose: 5 ml Promethazine HCl (Phenergan) 6.25 mg in 50.25 mls @ 201 mls/hr IV Q6H PRN PRN Reason: Nausea And Vomiting Stop: 04/14/25 22:37 Last Infusion: 03/16/25 21:10 Dose: Infused Ceftriaxone Sodium (Rocephin) 2,000 mg in 50 mls @ 100 mls/hr IV Q24H [facility] Stop: 03/23/25 07:59 Last Infusion: 03/20/25 08:30 Dose: Infused Insulin Aspart (Insulin Aspart Per Unit Charge) 0 units SC ACHS [facility] Stop: 04/14/25 23:55 Last Admin: 03/20/25 12:00 Dose: Not Given Metoprolol Succinate (Metoprolol Succ 25mg Ext Rel Tab) 25 mg PO QAM [facility] Stop: 04/15/25 08:59 Last Admin: 03/20/25 08:00 Dose: 25 mg Miscellaneous (Carbohydrates For Hypoglycemia ) 15 - 30 gm PO UD PRN PRN Reason: Hypoglycemia Protocol Stop: 04/14/25 23:55 Last Admin: 03/19/25 17:23 Dose: 15 gm Oxycodone HCl (Oxycodone Hcl Ir 5 Mg Tab (Immediate Release)) 5 mg PO Q6H PRN PRN Reason: Severe Pain (Scale 7, 8, 9,10) Stop: 04/01/25 09:38 PG Care Time/CCT Total # of Minutes Spent Total Time Spent with Patient: Total time spent is greater than 50% in coordination of care (as documented) at patient's floor/unit and/or counseling patient: [place] [address] SUB INP/OBS CARE 2/35MIN Patient Type Established History Problem Focused Exam Problem Focused Medical Decision Making Low Complexity Diagnoses Weakness generalized R53.1
== END 2025-03-20 13:50 | disposition hospice, home (50) | DRG 871 ==
LOC: ED 17:26 → 2W 22:04